=== PATIENT | male | born 1985 | race American Indian/Alaskan Native ===

== ENCOUNTER 2019-02-11 10:53 | Inpatient (IN) | payer OTHER ==
--- NOTE | 2019-02-11 11:46 | Emergency Department Report ---
ED General Adult HPI - General Chief complaint: Recheck/Abnormal Lab/Rx Stated complaint: NEED DIALYSIS Time Seen by Provider: 02/11/19 11:40 Source: patient Mode of arrival: Ambulatory Limitations: No Limitations - History of Present Illness Initial comments: Patient is a 33-year-old male the patient's emergency room with complaints of needing dialysis. Patient states traveling from [place] to here and social and political studies professor set up dialysis but the deal fell through. Patient states he doesn't receive dialysis. Patient's last dialysis was 3 days ago. Patient denies any symptoms. Patient denies chest pain. Patient denies shortness of breath. Patient denies headache. Patient denies dizziness. -: Sudden Severity scale (0 -10): 0 Consistency: constant Associated Symptoms: denies other symptoms Treatments Prior to Arrival: none - Related Data Home Medications Medication Instructions Recorded Confirmed Last Taken ISOSORBIDE MONOnitrate [Imdur ER] 30 mg PO DAILY 02/11/19 02/11/19 Unknown Labetalol [Labetalol 200mg TAB] 200 mg PO BID 02/11/19 02/11/19 02/11/19 Mirtazapine Solutab [Remeron 15mg 15 mg PO QHS 02/11/19 02/11/19 02/10/19 Solutab] amLODIPine [Norvasc] 5 mg PO DAILY 02/11/19 02/11/19 02/10/19 hydrALAZINE [Apresoline TAB] 100 mg PO TID 02/11/19 02/11/19 02/11/19 Allergies Allergy/AdvReac Type Severity Reaction Status Date / Time Penicillins Allergy Hives Verified 02/11/19 14:13 ED Review of Systems ROS: Stated complaint: NEED DIALYSIS Other details as noted in HPI Constitutional: denies: chills, fever Eyes: denies: eye pain, eye discharge, vision change ENT: denies: ear pain, throat pain Respiratory: denies: cough, shortness of breath, wheezing Cardiovascular: denies: chest pain, palpitations Endocrine: no symptoms reported Gastrointestinal: denies: abdominal pain, nausea, diarrhea Genitourinary: denies: urgency, dysuria Musculoskeletal: denies: back pain, joint swelling, arthralgia Skin: denies: rash, lesions Neurological: denies: headache, weakness, paresthesias Psychiatric: denies: anxiety, depression Hematological/Lymphatic: denies: easy bleeding, easy bruising ED Past Medical Hx - Past Medical History Previous Medical History?: Yes Hx Hypertension: Yes Hx Diabetes: Yes Hx Renal Disease: Yes Hx HIV: Yes Additional medical history: HIV - Surgical History Past Surgical History?: Yes Hx Cholecystectomy: Yes Additional Surgical History: PORT IN CHEST - Family History Family history: no significant - Social History Smoking Status: Never Smoker Substance Use Type: None - Medications Home Medications: Home Medications Medication Instructions Recorded Confirmed Last Taken Type ISOSORBIDE MONOnitrate [Imdur ER] 30 mg PO DAILY 02/11/19 02/11/19 Unknown History Labetalol [Labetalol 200mg TAB] 200 mg PO BID 02/11/19 02/11/19 02/11/19 History Mirtazapine Solutab [Remeron 15mg 15 mg PO QHS 02/11/19 02/11/19 02/10/19 History Solutab] amLODIPine [Norvasc] 5 mg PO DAILY 02/11/19 02/11/19 02/10/19 History hydrALAZINE [Apresoline TAB] 100 mg PO TID 02/11/19 02/11/19 02/11/19 History ED Physical Exam - General Limitations: No Limitations General appearance: alert, in no apparent distress - Head Head exam: Present: atraumatic, normocephalic - Eye Eye exam: Present: normal appearance - ENT ENT exam: Present: mucous membranes moist - Neck Neck exam: Present: normal inspection - Respiratory Respiratory exam: Present: normal lung sounds bilaterally, other (right chest port). Absent: respiratory distress - Cardiovascular Cardiovascular Exam: Present: regular rate, normal rhythm. Absent: systolic murmur, diastolic murmur, rubs, gallop - GI/Abdominal GI/Abdominal exam: Present: soft, normal bowel sounds - Rectal Rectal exam: Present: deferred - Extremities Exam Extremities exam: Present: normal inspection - Back Exam Back exam: Present: normal inspection - Neurological Exam Neurological exam: Present: alert, oriented X3 - Psychiatric Psychiatric exam: Present: normal affect, normal mood - Skin Skin exam: Present: warm, dry, intact, normal color. Absent: rash ED Course Vital Signs 02/11/19 02/11/19 02/11/19 11:06 11:57 12:00 Temperature 98.4 F Pulse Rate 110 H Respiratory 16 Rate Blood Pressure 161/115 142/112 Blood Pressure 190/124 [Left] O2 Sat by Pulse 99 Oximetry 02/11/19 02/11/19 13:07 14:00 Temperature 98.1 F Pulse Rate 100 H Respiratory 20 Rate Blood Pressure 170/104 179/116 Blood Pressure [Left] O2 Sat by Pulse 100 96 Oximetry - Reevaluation(s) Reevaluation #1: Discussed all results the patient. Discussed plan of care patient. Patient agrees plan for admission. Patient will have dialysis done in the hospital. Patient will be admitted to the hospital service. 02/11/19 13:22 - Consultations Consultation #1: Hospitalist consultation for admission. Hospitalist to admit patient and assume care patient. Bridge orders placed 02/11/19 13:23 Consultation #2: Nephrology paged 02/11/19 13:25 Discussed case with extract mixer, Dr. Anaya and he agrees with plan of care and in-hospital dialysis. He states he will place the dialysis orders. 02/11/19 13:55 ED Medical Decision Making - Lab Data Result diagrams: 02/11/19 11:29 02/11/19 11:29 - Medical Decision Making Patient is a 33-year-old known end-stage renal disease patient on dialysis. Patient is traveling here and has not had dialysis for 3 days. Patient will be admitted to the hospitalist service for dialysis. Nephrology consultation. labs done in consistent with end-stage renal disease. Potassium normal - Differential Diagnosis missed dialysis. End stage renal disease Critical care attestation.: If time is entered above; I have spent that time in minutes in the direct care of this critically ill patient, excluding procedure time. ED Disposition Clinical Impression: Missed dialysis, CKD (chronic kidney disease) requiring chronic dialysis Disposition: OP ADMIT IP TO THIS HOSP Is pt being admited?: Yes Does the pt Need Aspirin: No Condition: Critical Time of Disposition: 13:24
[2019-02-11 12:07] LABS: Basophils # (Auto) 0.1 K/mm3 (0.0-0.1); Eosinophils # (Auto) 0.2 K/mm3 (0.0-0.4); Eosinophils % (Auto) 2.7 % (0.0-4.3); Hematocrit 32.4 % (35.5-45.6); Hemoglobin 10.7 gm/dl (11.8-15.2); Lymphocytes # (Auto) 1.5 K/mm3 (1.2-5.4); Lymphocytes % (Auto) 21.6 % (13.4-35.0); Mean Corpuscular HGB Conc 33 % (32-34); Mean Corpuscular Volume 89 fl (84-94); Monocytes # (Auto) 0.5 K/mm3 (0.0-0.8); Monocytes % (Auto) 6.8 % (0.0-7.3); Platelet Count 311 K/mm3 (140-440); Red Blood Count 3.62 M/mm3 (3.65-5.03); Red Cell Distribution Width 13.9 % (13.2-15.2)
[2019-02-11 12:23] LABS: Albumin 3.6 g/dL (3.9-5); Calcium 9.3 mg/dL (8.4-10.2)
[2019-02-11] MEDS ORDERED: NACL 0.9% 100 ML IV PRN (14:07)
[2019-02-11 15:29] LABS: Hepatitis B Surface Antigen Non-Reactive (Negative); Hepatitis C Virus Antibody Non-Reactive (NonReactive)
[2019-02-11] MEDS: PROCRIT IV PRN (19:00)
[2019-02-11] MEDS ORDERED: NACL 0.9 (PRIMING MACHINE ONLY DIALYSIS) MC ONE (20:12)
--- NOTE | 2019-02-11 22:02 | History and Physical Report ---
History of Present Illness Date of examination: 02/11/19 Date of admission: 02/11/19 13:25 Chief complaint: Missed hemodialysis History of present illness: 33-year-old male with history of end-stage renal disease on hemodialysis for the last few months is moving from [place] to [place] for 3 weeks. Apparently arranged for hemodialysis as outpatient but unable to go there because they were not arranged properly. Patient comes in from missed hemodialysis. Patient is on hemodialysis Thursday. Had his hemodialysis on Thursday. Breasts yesterday which is . Comes to the [facility] emergency room for hemodialysis and for arrangements of hemodialysis as outpatient. No shortness of breath. No chest pain. No fever. Recent travel from [place] to [place] by a bus. Has low back pain secondary to sitting and bus for long hours. Patient also has a history of HIV but not taking any antiretrovirals Past Medical History Previous Medical History?: Yes Hx Hypertension: Yes Hx Diabetes: Yes Hx Renal Disease: Yes Hx HIV: Yes Additional medical history: HIV Surgical History Past Surgical History?: Yes Hx Cholecystectomy: Yes Additional Surgical History: PORT IN CHEST Family History Family history: no significant Social History Smoking Status: Never Smoker Substance Use Type: None Medications Home Medications: Home Medications Medication Instructions Recorded Confirmed Last Taken Type ISOSORBIDE MONOnitrate [Imdur ER] 30 mg PO DAILY 02/11/19 02/11/19 Unknown History Labetalol [Labetalol 200mg TAB] 200 mg PO BID 02/11/19 02/11/19 02/11/19 History Mirtazapine Solutab [Remeron 15mg 15 mg PO QHS 02/11/19 02/11/19 02/10/19 History Solutab] amLODIPine [Norvasc] 5 mg PO DAILY 02/11/19 02/11/19 02/10/19 History hydrALAZINE [Apresoline TAB] 100 mg PO TID 02/11/19 02/11/19 02/11/19 History Review of Systems ROS: Stated complaint: NEED DIALYSIS Other details as noted in HPI Constitutional: denies: chills, fever Eyes: denies: eye pain, eye discharge, vision change ENT: denies: ear pain, throat pain Respiratory: denies: cough, shortness of breath, wheezing Cardiovascular: denies: chest pain, palpitations Endocrine: no symptoms reported Gastrointestinal: denies: abdominal pain, nausea, diarrhea Genitourinary: denies: urgency, dysuria Musculoskeletal: denies: back pain, joint swelling, arthralgia Skin: denies: rash, lesions Neurological: denies: headache, weakness, paresthesias Psychiatric: denies: anxiety, depression Hematological/Lymphatic: denies: easy bleeding, easy bruising Medications and Allergies Allergies Allergy/AdvReac Type Severity Reaction Status Date / Time Penicillins Allergy Hives Verified 02/11/19 14:13 Home Medications Medication Instructions Recorded Confirmed Last Taken Type ISOSORBIDE MONOnitrate [Imdur ER] 30 mg PO DAILY 02/11/19 02/11/19 Unknown History Labetalol [Labetalol 200mg TAB] 200 mg PO BID 02/11/19 02/11/19 02/11/19 History Mirtazapine Solutab [Remeron 15mg 15 mg PO QHS 02/11/19 02/11/19 02/10/19 History Solutab] amLODIPine [Norvasc] 5 mg PO DAILY 02/11/19 02/11/19 02/10/19 History hydrALAZINE [Apresoline TAB] 100 mg PO TID 02/11/19 02/11/19 02/11/19 History Active Meds: Active Medications Epoetin Jv (Procrit) 10,000 unit IV TORY PRN PRN Reason: hemodialysis Last Admin: 02/11/19 19:00 Dose: 10,000 unit Documented by: Sodium Chloride (Nacl 0.9%) 100 mls @ 999 mls/hr IV TORY PRN PRN Reason: Hypotension Exam - Constitutional Vitals: Temp Pulse Resp BP Pulse Ox 98.2 F 96 H 18 116/65 96 02/11/19 19:15 02/11/19 19:15 02/11/19 19:15 02/11/19 19:15 02/11/19 14:00 General appearance: Present: no acute distress, well-nourished - EENT Eyes: Present: PERRL ENT: hearing intact, clear oral mucosa - Neck Neck: Present: supple, normal ROM - Respiratory Respiratory effort: normal Respiratory: bilateral: CTA - Cardiovascular Heart rate: 76 Rhythm: regular Heart Sounds: Present: S1 & S2. Absent: rub, click - Extremities Extremities: no ischemia, pulses symmetrical, No edema Peripheral Pulses: within normal limits - Abdominal General gastrointestinal: Present: soft, non-tender, non-distended, normal bowel sounds Male genitourinary: Present: normal - Rectal Rectal Exam: deferred - Integumentary Integumentary: Present: clear, warm, dry - Musculoskeletal Musculoskeletal: gait normal, strength equal bilaterally - Psychiatric Psychiatric: appropriate mood/affect, intact judgment & insight - Neurologic Neurologic: CNII-XII intact, moves all extremities - Allied Health Allied health notes reviewed: nursing, case management Results - Labs CBC & Chem 7: 02/11/19 11:29 02/11/19 11:29 Labs: Laboratory Last Values WBC 7.0 K/mm3 (4.5-11.0) 02/11/19 11:29 RBC 3.62 M/mm3 (3.65-5.03) L 02/11/19 11:29 Hgb 10.7 gm/dl (11.8-15.2) L 02/11/19 11:29 Hct 32.4 % (35.5-45.6) L 02/11/19 11:29 MCV 89 fl (84-94) 02/11/19 11:29 MCH 30 pg (28-32) 02/11/19 11:29 MCHC 33 % (32-34) 02/11/19 11:29 RDW 13.9 % (13.2-15.2) 02/11/19 11:29 Plt Count 311 K/mm3 (140-440) 02/11/19 11:29 Lymph % (Auto) 21.6 % (13.4-35.0) 02/11/19 11:29 [place] % (Auto) 6.8 % (0.0-7.3) 02/11/19 11:29 Eos % (Auto) 2.7 % (0.0-4.3) 02/11/19 11:29 Baso % (Auto) 1.0 % (0.0-1.8) 02/11/19 11:29 Lymph # 1.5 K/mm3 (1.2-5.4) 02/11/19 11:29 [place] # 0.5 K/mm3 (0.0-0.8) 02/11/19 11:29 Eos # 0.2 K/mm3 (0.0-0.4) 02/11/19 11:29 Baso # 0.1 K/mm3 (0.0-0.1) 02/11/19 11:29 Seg Neutrophils % 67.9 % (40.0-70.0) 02/11/19 11:29 Seg Neutrophils # 4.8 K/mm3 (1.8-7.7) 02/11/19 11:29 Sodium 134 mmol/L (137-145) L 02/11/19 11:29 Potassium 4.4 mmol/L (3.6-5.0) 02/11/19 11:29 Chloride 92.9 mmol/L (98-107) L 02/11/19 11:29 Carbon Dioxide 24 mmol/L (22-30) 02/11/19 11:29 22 mmol/L 02/11/19 11:29 BUN 39 mg/dL (9-20) H 02/11/19 11:29 8.2 mg/dL (0.8-1.5) H 02/11/19 11:29 Estimated GFR 8 ml/min 02/11/19 11:29 5 % 02/11/19 11:29 Glucose 282 mg/dL (75-100) H 02/11/19 11:29 Calcium 9.3 mg/dL (8.4-10.2) 02/11/19 11:29 0.40 mg/dL (0.1-1.2) 02/11/19 11:29 AST 20 units/L (5-40) 02/11/19 11:29 ALT 14 units/L (7-56) 02/11/19 11:29 83 units/L (35-129) 02/11/19 11:29 8.2 g/dL (6.3-8.2) 02/11/19 11:29 3.6 g/dL (3.9-5) L 02/11/19 11:29 0.8 % 02/11/19 11:29 Hepatitis A IgM Ab Non-reactive (NonReactive) 02/11/19 14:30 Hep Bs Antigen Non-reactive (Negative) 02/11/19 14:30 Hep B Core IgM Ab Non-reactive (NonReactive) 02/11/19 14:30 Non-reactive (NonReactive) 02/11/19 14:30 Assessment and Plan Advance Directives: Yes (full code) VTE prophylaxis?: Chemical Plan of care discussed with patient/family: Yes (full code) - Patient Problems (1) Missed dialysis Current Visit: Yes Status: Acute Plan to address problem: Patient needs hemodialysis Nephrology consulted (2) Volume overload Current Visit: Yes Status: Acute Qualifiers: Hypervolemia type: unspecified Qualified Code(s): E87.70 - Fluid overload, unspecified Plan to address problem: Secondary to missed hemodialysis Needs emergent hemodialysis Nephrology consulted (3) Hypertension Current Visit: Yes Status: Chronic Qualifiers: Hypertension type: essential hypertension Qualified Code(s): I10 - Bella alvarado (primary) hypertension Plan to address problem: Continue antihypertensives (4) Type 2 diabetes mellitus Current Visit: Yes Status: Chronic Qualifiers: Diabetes mellitus long term acute care registered nurse insulin use: with senior care use Plan to address problem: Patient started on Lantus 15 units subcutaneous at bedtime Check hemoglobin A1c (5) HIV (human immunodeficiency virus infection) Current Visit: Yes Status: Chronic Qualifiers: HIV symptom status: asymptomatic Qualified Code(s): Z21 - Asymptomatic human immunodeficiency virus [HIV] infection status Plan to address problem: Not on any antiretrovirals To follow with infectious disease consultants as outpatient ID consult was not requested (6) DVT prophylaxis Current Visit: Yes Status: Acute Plan to address problem: On heparin 5000 every 12 and GI prophylaxis
[2019-02-11] MEDS ORDERED: SODIUM CHLORIDE FLUSH SYRINGE 10 ML IV PRN (22:09)
[2019-02-11] MEDS ORDERED: TYLENOL PO PRN (22:09)
[2019-02-11] MEDS: PERCOCET 5/325 PO PRN (22:49)
[2019-02-11] MEDS: NORMODYNE PO SCH (22:49)
[2019-02-11] MEDS: REMERON SOLUTAB PO SCH (22:50)
[2019-02-12] MEDS: SODIUM CHLORIDE FLUSH SYRINGE 10 ML IV SCH ×3 (00:50→22:52)
[2019-02-12] MEDS: LANTUS SUB-Q SCH ×2 (00:50→22:51)
[2019-02-12 06:21] LABS: Basophils # (Auto) 0.1 K/mm3 (0.0-0.1); Basophils % (Auto) 0.9 % (0.0-1.8); Eosinophils # (Auto) 0.2 K/mm3 (0.0-0.4); Eosinophils % (Auto) 2.4 % (0.0-4.3); Hematocrit 28.8 % (35.5-45.6); Hemoglobin 9.6 gm/dl (11.8-15.2); Lymphocytes # (Auto) 1.9 K/mm3 (1.2-5.4); Lymphocytes % (Auto) 28.4 % (13.4-35.0); Mean Corpuscular HGB Conc 33 % (32-34); Mean Corpuscular Volume 90 fl (84-94); Monocytes # (Auto) 0.6 K/mm3 (0.0-0.8); Monocytes % (Auto) 9.6 % (0.0-7.3); Platelet Count 247 K/mm3 (140-440); Red Cell Distribution Width 14.1 % (13.2-15.2)
[2019-02-12 06:40] LABS: Albumin 2.9 g/dL (3.9-5); Calcium 8.7 mg/dL (8.4-10.2)
[2019-02-12] MEDS: HumaLOG SUB-Q SCH ×4 (07:30→22:50)
[2019-02-12] MEDS: NORMODYNE PO SCH ×2 (09:32→21:29)
[2019-02-12] MEDS: IMDUR PO SCH (09:33)
[2019-02-12] MEDS: NORVASC PO SCH (09:33)
[2019-02-12] MEDS: PEPCID PO SCH ×2 (09:34→21:28)
[2019-02-12] MEDS: APRESOLINE PO SCH ×3 (09:34→21:29)
[2019-02-12] MEDS: DILAUDID IV PRN ×3 (09:39→23:59)
--- NOTE | 2019-02-12 10:35 | Consultation ---
History of Present Illness - Reason for Consult Consult date: 02/12/19 end stage renal disease Requesting physician: OPAL FRANKS - History of Present Illness This is a 33yo CM with history of hypertension, ESRD on HD on TTS schedule for the last few months who is in the process of moving from [place] to [place]. Outpatient HD arrangement was not properly done, and he does not have any centers assigned to. Patient comes in to [facility] ER for missed hemodialysis. Pt den iesshortness of breath, chest pain, fever, chills, n/v/d. Patient also has a history of HIV but not taking any antiretrovirals Medications and Allergies Allergies Allergy/AdvReac Type Severity Reaction Status Date / Time Penicillins Allergy Hives Verified 02/11/19 14:13 Home Medications Medication Instructions Recorded Confirmed Last Taken Type ISOSORBIDE MONOnitrate [Imdur ER] 30 mg PO DAILY 02/11/19 02/11/19 Unknown History Labetalol [Labetalol 200mg TAB] 200 mg PO BID 02/11/19 02/11/19 02/11/19 History Mirtazapine Solutab [Remeron 15mg 15 mg PO QHS 02/11/19 02/11/19 02/10/19 History Solutab] amLODIPine [Norvasc] 5 mg PO DAILY 02/11/19 02/11/19 02/10/19 History hydrALAZINE [Apresoline TAB] 100 mg PO TID 02/11/19 02/11/19 02/11/19 History Active Meds: Active Medications Acetaminophen (Tylenol) 650 mg PO Q4H PRN PRN Reason: Pain MILD(1-3)/Fever >100.5/CHOUDHARY Amlodipine Besylate (Norvasc) 5 mg PO DAILY [facility] Last Admin: 02/12/19 09:33 Dose: 5 mg Documented by: Epoetin Jv (Procrit) 10,000 unit IV TORY PRN PRN Reason: hemodialysis Last Admin: 02/11/19 19:00 Dose: 10,000 unit Documented by: Famotidine (Pepcid) 10 mg PO BID [facility] Last Admin: 02/12/19 09:34 Dose: 10 mg Documented by: Hydralazine HCl (Apresoline) 100 mg PO TID [facility] Last Admin: 02/12/19 09:34 Dose: 100 mg Documented by: Hydromorphone HCl (Dilaudid) 0.5 mg IV Q3H PRN PRN Reason: Pain , Severe (7-10) Last Admin: 02/12/19 09:39 Dose: 0.5 mg Documented by: Sodium Chloride (Nacl 0.9%) 100 mls @ 999 mls/hr IV TORY PRN PRN Reason: Hypotension Insulin Glargine (Lantus) 15 units SUB-Q QHS [facility] Last Admin: 02/12/19 00:50 Dose: 15 units Documented by: Insulin Human Lispro (Humalog) 0 unit SUB-Q ACHS [facility]; Protocol Isosorbide Mononitrate (Imdur) 30 mg PO DAILY [facility] Last Admin: 02/12/19 09:33 Dose: 30 mg Documented by: Labetalol HCl (Normodyne) 200 mg PO BID [facility] Last Admin: 02/12/19 09:32 Dose: 200 mg Documented by: Mirtazapine (Remeron Solutab) 15 mg PO QHS [facility] Last Admin: 02/11/19 22:50 Dose: 15 mg Documented by: Ondansetron HCl (Zofran) 4 mg IV Q8H PRN PRN Reason: Nausea And Vomiting Oxycodone/Acetaminophen (Percocet 5/325) 1 tab PO Q6H PRN PRN Reason: Pain, Moderate (4-6) Last Admin: 02/11/19 22:49 Dose: 1 tab Documented by: Sodium Chloride (Sodium Chloride Flush Syringe 10 Ml) 10 ml IV BID [facility] Last Admin: 02/12/19 00:50 Dose: 10 ml Documented by: Sodium Chloride (Sodium Chloride Flush Syringe 10 Ml) 10 ml IV PRN PRN PRN Reason: LINE FLUSH Exam - Vital Signs Vital signs: Vital Signs Temp Pulse Resp BP Pulse Ox 98.4 F 110 H 16 190/124 99 02/11/19 11:06 02/11/19 11:06 02/11/19 11:06 02/11/19 11:06 02/11/19 11:06 Results - Lab Results 02/12/19 05:58 02/12/19 05:58 Most recent lab results Calcium 8.7 mg/dL (8.4-10.2) 02/12/19 05:58 Assessment and Plan - Patient Problems (1) ESRD (end stage renal disease) Current Visit: Yes Status: Acute Plan to address problem: HD arranged yesterday, with target UF 3L, well tolerated without acute complication. Will cont HD on MWF schedule. Case management to arrange outpatient HD. (2) Hypertensive chronic kidney disease with stage 5 chronic kidney disease or end stage renal disease Current Visit: Yes Status: Acute Plan to address problem: resume home BP meds. Will monitor BP and adjust UF accordingly (3) HIV (human immunodeficiency virus infection) Current Visit: Yes Status: Chronic Qualifiers: HIV symptom status: asymptomatic Qualified Code(s): Z21 - Asymptomatic human immunodeficiency virus [HIV] infection status Plan to address problem: pt needs outpatient ID f/u
--- NOTE | 2019-02-12 11:34 | Progress Note ---
Assessment and Plan Assessment and plan: Patient is a 33-year-old man with a history of HIV, hypertension and End-stage renal disease on hemodialysis TTS who moved from [place] to [facility] for 3 weeks. Apparently arranged for hemodialysis as outpatient but unable to go there because they were not arranged properly. Patient comes in from missed hemodialysis. Patient is on hemodialysis Thursday. Had his hemodialysis on Thursday. Breasts yesterday which is . Comes to the [facility] emergency room for hemodialysis and for arrangements of hemodialysis as outpatient. No shortness of breath. No chest pain. No fever. Recent travel from [place] to [place] by a bus. Has low back pain secondary to sitting and bus for long hours. Patient also has a history of HIV but not taking any antiretrovirals (1) Missed dialysis Current Visit: Yes Status: Acute Plan to address problem: Patient needs hemodialysis Nephrology consulted (2) Volume overload Current Visit: Yes Status: Acute Qualifiers: Hypervolemia type: unspecified Qualified Code(s): E87.70 - Fluid overload, unspecified Plan to address problem: Secondary to missed hemodialysis Needs emergent hemodialysis Nephrology consulted (3) Hypertension Current Visit: Yes Status: Chronic Qualifiers: Hypertension type: essential hypertension Qualified Code(s): I10 - Essential (primary) hypertension Plan to address problem: Continue antihypertensives (4) Type 2 diabetes mellitus Current Visit: Yes Status: Chronic Qualifiers: 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 Plan to address problem: Patient started on Lantus 15 units subcutaneous at bedtime Check hemoglobin A1c (5) HIV (human immunodeficiency virus infection) Current Visit: Yes Status: Chronic Qualifiers: HIV symptom status: asymptomatic Qualified Code(s): Z21 - Asymptomatic hum an immunodeficiency virus [HIV] infection status Plan to address problem: Not on any antiretrovirals To follow with infectious disease consultants as outpatient ID consult was not requested (6) DVT prophylaxis Current Visit: Yes Status: Acute Plan to address problem: On heparin 5000 every 12 and GI prophylaxis Dispostion: continue inpatient care, I spoke with insurance case manager Mr. Hanna, trying to get him outpatient hemodialysi History Interval history: Patient was seen and examined. Follow-up on current diagnosis of ESRD. No overnight events reported to me. Patient denies any chest pain, shortness breath, nausea/vomiting or severe headaches. Imaging, nursing note, chart, labs and old chart reviewed. Discussed with patient. Hospitalist Physical - Physical exam Narrative exam: Gen: WDWN, NAD, Awake, Alert, Orientated HEENT: NCAT, EOMI, PERRL, OP Clear Neck: supple, no adenopathy, no thyromegaly, no JVD CVS/Heart: RRR, normal S1S2, pulses present bilaterally Chest/Lungs: CTA B, Symmetrical chest expansion, good air entry bilaterally GI/Abdomen: soft, NTND, good bowel sounds, no guarding or rebound /Bladder: no suprapubic tenderness, no CVA or paraspinal tenderness Extermity/Skin: no c/c/e, many tattoos MSK: FROM x 4 Neuro: CN 2-12 grossly intact, no new focal deficits Psych: calm - Constitutional Vitals: Temp Pulse Resp BP Pulse Ox 98.1 F 106 H 20 151/91 96 02/11/19 23:43 02/12/19 09:33 02/11/19 23:43 02/12/19 09:33 02/11/19 23:43 General appearance: Present: no acute distress, well-nourished Results - Labs CBC & Chem 7: 02/12/19 05:58 02/12/19 05:58 Labs: Laboratory Last Values WBC 6.5 K/mm3 (4.5-11.0) 02/12/19 05:58 RBC 3.20 M/mm3 (3.65-5.03) L 02/12/19 05:58 Hgb 9.6 gm/dl (11.8-15.2) L 02/12/19 05:58 Hct 28.8 % (35.5-45.6) L 02/12/19 05:58 MCV 90 fl (84-94) 02/12/19 05:58 MCH 30 pg (28-32) 02/12/19 05:58 MCHC 33 % (32-34) 02/12/19 05:58 RDW 14.1 % (13.2-15.2) 02/12/19 05:58 Plt Count 247 K/mm3 (140-440) 02/12/19 05:58 Lymph % (Auto) 28.4 % (13.4-35.0) 02/12/19 05:58 [place] % (Auto) 9.6 % (0.0-7.3) H 02/12/19 05:58 Eos % (Auto) 2.4 % (0.0-4.3) 02/12/19 05:58 Baso % (Auto) 0.9 % (0.0-1.8) 02/12/19 05:58 Lymph # 1.9 K/mm3 (1.2-5.4) 02/12/19 05:58 [place] # 0.6 K/mm3 (0.0-0.8) 02/12/19 05:58 Eos # 0.2 K/mm3 (0.0-0.4) 02/12/19 05:58 Baso # 0.1 K/mm3 (0.0-0.1) 02/12/19 05:58 Seg Neutrophils % 58.7 % (40.0-70.0) 02/12/19 05:58 Seg Neutrophils # 3.8 K/mm3 (1.8-7.7) 02/12/19 05:58 Sodium 138 mmol/L (137-145) 02/12/19 05:58 Potassium 3.8 mmol/L (3.6-5.0) 02/12/19 05:58 Chloride 99.6 mmol/L (98-107) 02/12/19 05:58 Carbon Dioxide 28 mmol/L (22-30) 02/12/19 05:58 14 mmol/L 02/12/19 05:58 BUN 24 mg/dL (9-20) H 02/12/19 05:58 5.8 mg/dL (0.8-1.5) H 02/12/19 05:58 Estimated GFR 14 ml/min 02/12/19 05:58 4 % 02/12/19 05:58 Glucose 223 mg/dL (75-100) H 02/12/19 05:58 POC Glucose 205 (70-105) H 02/12/19 07:44 5.7 % (4-6) 02/11/19 11:29 Calcium 8.7 mg/dL (8.4-10.2) 02/12/19 05:58 0.30 mg/dL (0.1-1.2) 02/12/19 05:58 AST 14 units/L (5-40) 02/12/19 05:58 ALT 11 units/L (7-56) 02/12/19 05:58 78 units/L (35-129) 02/12/19 05:58 6.8 g/dL (6.3-8.2) 02/12/19 05:58 2.9 g/dL (3.9-5) L 02/12/19 05:58 0.7 % 02/12/19 05:58 Hepatitis A IgM Ab Non-reactive (NonReactive) 02/11/19 14:30 Hep Bs Antigen Non-reactive (Negative) 02/11/19 14:30 Hep B Core IgM Ab Non-reactive (NonReactive) 02/11/19 14:30 Non-reactive (NonReactive) 02/11/19 14:30 Active Medications - Current Medications Current Medications: Generic Name Dose Route Start Last Admin Trade Name Freq PRN Reason Stop Dose Admin Acetaminophen 650 mg 02/11/19 22:09 Tylenol PO Q4H PRN Pain MILD(1-3)/Fever >100.5/CHOUDHARY Amlodipine Besylate 5 mg 02/12/19 10:00 02/12/19 09:33 Norvasc PO 5 mg DAILY SHIRA Administration Epoetin Jv 10,000 unit 02/11/19 14:07 02/11/19 19:00 Procrit IV 10,000 unit TORY PRN Administration hemodialysis Famotidine 10 mg 02/12/19 10:00 02/12/19 09:34 Pepcid PO 10 mg BID SHIRA Administration Hydralazine HCl 100 mg 02/12/19 08:00 02/12/19 09:34 Apresoline PO 100 mg TID SHIRA Administration Hydromorphone HCl 0.5 mg 02/11/19 22:09 02/12/19 09:39 Dilaudid IV 0.5 mg Q3H PRN Administration Pain , Severe (7-10) Sodium Chloride 100 mls @ 999 mls/hr 02/11/19 14:07 Nacl 0.9% IV TORY PRN Hypotension Insulin Glargine 15 units 02/11/19 23:00 02/12/19 00:50 Lantus SUB-Q 15 units QHS SHIRA Administration Insulin Human Lispro 0 unit 02/12/19 07:30 Humalog SUB-Q ACHS [facility] Protocol Isosorbide Mononitrate 30 mg 02/12/19 10:00 02/12/19 09:33 Imdur PO 30 mg DAILY SHIRA Administration Labetalol HCl 200 mg 02/11/19 23:00 02/12/19 09:32 Normodyne PO 200 mg BID SHIRA Administration Mirtazapine 15 mg 02/11/19 23:00 02/11/19 22:50 Remeron Solutab PO 15 mg QHS SHIRA Administration Ondansetron HCl 4 mg 02/11/19 22:09 Zofran IV Q8H PRN Nausea And Vomiting Oxycodone/Acetaminophen 1 tab 02/11/19 22:09 02/11/19 22:49 Percocet 5/325 PO 1 tab Q6H PRN Administration Pain, Moderate (4-6) Sodium Chloride 10 ml 02/11/19 23:00 02/12/19 00:50 Sodium Chloride Flush Syringe 10 Ml IV 10 ml BID SHIRA Administration Sodium Chloride 10 ml 02/11/19 22:09 Sodium Chloride Flush Syringe 10 Ml IV PRN PRN LINE FLUSH
[2019-02-12] MEDS: ZOFRAN IV PRN (21:29)
[2019-02-12] MEDS: REMERON SOLUTAB PO SCH (22:51)
[2019-02-13 04:09] LABS: Hematocrit 28.4 % (35.5-45.6); Hemoglobin 9.5 gm/dl (11.8-15.2); Mean Corpuscular HGB Conc 33 % (32-34); Mean Corpuscular Volume 89 fl (84-94); Platelet Count 311 K/mm3 (140-440); Red Cell Distribution Width 14.1 % (13.2-15.2)
[2019-02-13 04:30] LABS: Calcium 8.5 mg/dL (8.4-10.2)
[2019-02-13] MEDS: DILAUDID IV PRN ×4 (06:26→21:12)
[2019-02-13] MEDS ORDERED: NACL 0.9% 100 ML IV PRN (09:00)
--- NOTE | 2019-02-13 09:02 | Progress Note ---
Assessment and Plan - Patient Problems (1) ESRD (end stage renal disease) Current Visit: Yes Status: Acute Plan to address problem: cont HD on MWF schedule. Case management to arrange outpatient HD. (2) Hypertensive chronic kidney disease with stage 5 chronic kidney disease or end stage renal disease Current Visit: Yes Status: Acute Plan to address problem: resume home BP meds. Will monitor BP and adjust UF accordingly (3) HIV (human immunodeficiency virus infection) Current Visit: Yes Status: Chronic Qualifiers: HIV symptom status: asymptomatic Qualified Code(s): Z21 - Asymptomatic human immunodeficiency virus [HIV] infection status Plan to address problem: pt needs outpatient ID f/u Subjective Date of service: 02/13/19 Principal diagnosis: ESRD Interval history: Patient awake, alert, in NAD, denies SOB, CP, palpitations, fever, chills, n/v/d Objective - Vital Signs Vital signs: Vital Signs - 12hr 02/12/19 02/13/19 02/13/19 23:59 06:26 07:00 Temperature 98.3 F Pulse Rate 110 H Respiratory 18 20 20 Rate Blood Pressure 152/84 O2 Sat by Pulse 94 Oximetry - General Appearance General appearance: well-developed, well-nourished, appears stated age EENT: ATNC, PERRL, mucous membranes moist Neck: no JVD Respiratory: Present: Clear to Ascultation Cardiology: regular, S1S2 Gastrointestinal: normoactive bowel sounds, obese Integumentary: no rash Neurologic: no focal deficit, alert and oriented x3, strength 5/5, CN 3-12 intact Psychiatric: mood/affect appropriate, cooperative - Lab 02/13/19 03:52 02/13/19 03:52 Most recent lab results Calcium 8.5 mg/dL (8.4-10.2) 02/13/19 03:52 Medications & Allergies - Medications Allergies/Adverse Reactions: Allergies Penicillins Allergy (Verified 02/11/19 14:13) Hives Home Medications: Home Medications Medication Instructions Recorded Confirmed Last Taken Type ISOSORBIDE MONOnitrate [Imdur ER] 30 mg PO DAILY 02/11/19 02/11/19 Unknown History Labetalol [Labetalol 200mg TAB] 200 mg PO BID 02/11/19 02/11/19 02/11/19 History Mirtazapine Solutab [Remeron 15mg 15 mg PO QHS 02/11/19 02/11/19 02/10/19 History Solutab] amLODIPine [Norvasc] 5 mg PO DAILY 02/11/19 02/11/19 02/10/19 History hydrALAZINE [Apresoline TAB] 100 mg PO TID 02/11/19 02/11/19 02/11/19 History Active Medications: Generic Name Dose Route Start Last Admin Trade Name Freq PRN Reason Stop Dose Admin Acetaminophen 650 mg 02/11/19 22:09 Tylenol PO Q4H PRN Pain MILD(1-3)/Fever >100.5/CHOUDHARY Amlodipine Besylate 5 mg 02/12/19 10:00 02/12/19 09:33 Norvasc PO 5 mg DAILY SHIRA Administration Epoetin Jv 10,000 unit 02/11/19 14:07 02/11/19 19:00 Procrit IV 10,000 unit TORY PRN Administration hemodialysis Famotidine 10 mg 02/12/19 10:00 02/12/19 21:28 Pepcid PO 10 mg BID SHIRA Administration Hydralazine HCl 100 mg 02/12/19 08:00 02/12/19 21:29 Apresoline PO 100 mg TID SHIRA Administration Hydromorphone HCl 0.5 mg 02/11/19 22:09 02/13/19 06:26 Dilaudid IV 0.5 mg Q3H PRN Administration Pain , Severe (7-10) Sodium Chloride 100 mls @ 999 mls/hr 02/11/19 14:07 Nacl 0.9% IV TORY PRN Hypotension Insulin Glargine 15 units 02/11/19 23:00 02/12/19 22:51 Lantus SUB-Q 15 units QHS SHIRA Administration Insulin Human Lispro 0 unit 02/12/19 07:30 02/12/19 22:50 Humalog SUB-Q 2 unit ACHS SHIRA Administration Protocol Isosorbide Mononitrate 30 mg 02/12/19 10:00 02/12/19 09:33 Imdur PO 30 mg DAILY SHIRA Administration Labetalol HCl 200 mg 02/11/19 23:00 02/12/19 21:29 Normodyne PO 200 mg BID SHIRA Administration Mirtazapine 15 mg 02/11/19 23:00 02/12/19 22:51 Remeron Solutab PO 15 mg QHS SHIRA Administration Ondansetron HCl 4 mg 02/11/19 22:09 02/12/19 21:29 Zofran IV 4 mg Q8H PRN Administration Nausea And Vomiting Oxycodone/Acetaminophen 1 tab 02/11/19 22:09 02/11/19 22:49 Percocet 5/325 PO 1 tab Q6H PRN Administration Pain, Moderate (4-6) Sodium Chloride 10 ml 02/11/19 23:00 02/12/19 22:52 Sodium Chloride Flush Syringe 10 Ml IV 10 ml BID SHIRA Administration Sodium Chloride 10 ml 02/11/19 22:09 Sodium Chloride Flush Syringe 10 Ml IV PRN PRN LINE FLUSH
[2019-02-13] MEDS: HumaLOG SUB-Q SCH ×4 (09:51→23:04)
[2019-02-13] MEDS: APRESOLINE PO SCH ×3 (09:52→21:12)
[2019-02-13] MEDS: PEPCID PO SCH ×2 (09:52→23:02)
[2019-02-13] MEDS: NORMODYNE PO SCH ×2 (09:53→23:02)
[2019-02-13] MEDS: IMDUR PO SCH (09:53)
[2019-02-13] MEDS: SODIUM CHLORIDE FLUSH SYRINGE 10 ML IV SCH (09:54)
[2019-02-13] MEDS: NORVASC PO SCH (09:54)
[2019-02-13] MEDS: ZOFRAN IV PRN ×2 (12:29→21:12)
--- NOTE | 2019-02-13 14:28 | Consultation ---
History of Present Illness - Reason for Consult Consult date: 02/13/19 HIV Requesting physician: CHRISTY LEVINE - History of Present Illness 33 y/o male with history of HIV infection since Mar [address] Samuel in [facility], currently off ART for 4 weeks since he was started on HD, now ESRD on hemodialysis, came to [place] for 3 weeks and came to the ED to arrange his HD as he is thinking about staying here with his mother. Denies any N/V/D, SOB, cough, fever, chills. Reports he had a recent kidney biopsy in [place] unknown results. In the ED, temp 98.4, HR 110, BP 190/124. WBC 7. Creat 8.2. Review of Systems: General: no fever, chills, no malaise Cutaneous: no rash, pruritus Head: no headaches or injury Eyes: no changes in vision, eye pain, double vision Ears: no ear pain, ear discharge, ringing or hearing loss Nose: no nose bleeding, stuffiness Mouth & throat: no bleeding gums, no horseness, no dental problems, or swollen glands Neck: no pain, node enlargement/lumps, tyroid enlargement or tenderness Respiratory: no cough, wheezing, sputum, hemoptysis, pleuritic chest pain Cardiovascular: no chest pain, leg edema, cyanosis, FLORES, orthopnea Musculoskeletal: no edema Gastrointestinal: no nausea, no vomiting, no hematemesis, diarrhea, constipation, melena, bright red blood in stools, fecal incontinence, jaundice Genitourinary/Reproductive: no frequent urination, dysuria, hematuria, incontinence Neurogical: no seizures, no headaches, no weakness, no paresthesias, no loss of speech or vision; no memory loss, no vertigo, no tremors, no numbness Psychiatric: stable mood; no excessive anxiety, sadness or moodiness Medications and Allergies Allergies Allergy/AdvReac Type Severity Reaction Status Date / Time Penicillins Allergy Hives Verified 02/11/19 14:13 Home Medications Medication Instructions Recorded Confirmed Last Taken Type ISOSORBIDE MONOnitrate [Imdur ER] 30 mg PO DAILY 02/11/19 02/11/19 Unknown History Labetalol [Labetalol 200mg TAB] 200 mg PO BID 02/11/19 02/11/19 02/11/19 History Mirtazapine Solutab [Remeron 15mg 15 mg PO QHS 02/11/19 02/11/19 02/10/19 History Solutab] amLODIPine [Norvasc] 5 mg PO DAILY 02/11/19 02/11/19 02/10/19 History hydrALAZINE [Apresoline TAB] 100 mg PO TID 02/11/19 02/11/19 02/11/19 History Active Meds: Active Medications Acetaminophen (Tylenol) 650 mg PO Q4H PRN PRN Reason: Pain MILD(1-3)/Fever >100.5/CHOUDHARY Amlodipine Besylate (Norvasc) 5 mg PO DAILY [facility] Last Admin: 02/13/19 09:54 Dose: 5 mg Documented by: Epoetin Jv (Procrit) 10,000 unit IV TORY PRN PRN Reason: hemodialysis Last Admin: 02/11/19 19:00 Dose: 10,000 unit Documented by: Famotidine (Pepcid) 10 mg PO BID [facility] Last Admin: 02/13/19 09:52 Dose: 10 mg Documented by: Hydralazine HCl (Apresoline) 100 mg PO TID [facility] Last Admin: 02/13/19 13:53 Dose: 100 mg Documented by: Hydromorphone HCl (Dilaudid) 0.5 mg IV Q3H PRN PRN Reason: Pain , Severe (7-10) Last Admin: 02/13/19 12:29 Dose: 0.5 mg Documented by: Sodium Chloride (Nacl 0.9%) 100 mls @ 999 mls/hr IV TORY PRN PRN Reason: Hypotension Sodium Chloride (Nacl 0.9%) 100 mls @ 999 mls/hr IV TORY PRN PRN Reason: Hypotension Insulin Glargine (Lantus) 15 units SUB-Q QHS [facility] Last Admin: 02/12/19 22:51 Dose: 15 units Documented by: Insulin Human Lispro (Humalog) 0 unit SUB-Q ACHS [facility]; Protocol Last Admin: 02/13/19 12:24 Dose: Not Given Documented by: Isosorbide Mononitrate (Imdur) 30 mg PO DAILY [facility] Last Admin: 02/13/19 09:53 Dose: 30 mg Documented by: Labetalol HCl (Normodyne) 200 mg PO BID [facility] Last Admin: 02/13/19 09:53 Dose: 200 mg Documented by: Mirtazapine (Remeron Solutab) 15 mg PO QHS [facility] Last Admin: 02/12/19 22:51 Dose: 15 mg Documented by: Ondansetron HCl (Zofran) 4 mg IV Q8H PRN PRN Reason: Nausea And Vomiting Last Admin: 02/13/19 12:29 Dose: 4 mg Documented by: Oxycodone/Acetaminophen (Percocet 5/325) 1 tab PO Q6H PRN PRN Reason: Pain, Moderate (4-6) Last Admin: 02/11/19 22:49 Dose: 1 tab Documented by: Sodium Chloride (Sodium Chloride Flush Syringe 10 Ml) 10 ml IV BID [facility] Last Admin: 02/13/19 09:54 Dose: 10 ml Documented by: Sodium Chloride (Sodium Chloride Flush Syringe 10 Ml) 10 ml IV PRN PRN PRN Reason: LINE FLUSH Physical Examination - Physical Exam Narrative exam: General appearance: Alert in NAD Eyes: anicteric sclerae, moist conjunctivae; no lid-lag; PERRLA HENT: Atraumatic; oropharynx clear with moist mucous membranes and no mucosal ulcerations/no oral thrush; normal hard and soft palate. Normal external ears. Neck: Trachea midline; supple, no thyromegaly or lymphadenopathy Lungs: CTA, with normal respiratory effort and no intercostal retractions CV: RRR no murmur Abdomen: Soft, non-tender; no masses or hepatosplenomegaly Extremities: no edema, cyanosis Skin: Normal temperature, turgor and texture; no rash, ulcers or subcutaneous nodules Psych: Appropriate affect, alert and oriented to person, place and time. Neuro: alert and oriented x 3. Moving all extermities right neck HD perm cath - Constitutional Vitals: Vital Signs Temp Pulse Resp BP Pulse Ox 98.3 F 100 H 16 168/93 96 02/13/19 11:13 02/13/19 11:13 02/13/19 11:13 02/13/19 11:13 02/13/19 11:13 Temperature -Last 24 Hours Temperature 98.3 F Temperature 98.3 F Temperature 97.2 F Results - Labs CBC & Chem 7: 02/13/19 03:52 02/13/19 03:52 Labs: Abnormal lab results 02/12/19 02/12/19 02/13/19 Range/Units 16:48 22:05 03:52 RBC 3.20 L (3.65-5.03) M/mm3 Hgb 9.5 L (11.8-15.2) gm/dl Hct 28.4 L (35.5-45.6) % BUN (9-20) mg/dL Creatinine (0.8-1.5) mg/dL Glucose (75-100) mg/dL POC Glucose 238 H 180 H (70-105) 02/13/19 02/13/19 02/13/19 Range/Units 03:52 08:18 12:26 RBC (3.65-5.03) M/mm3 Hgb (11.8-15.2) gm/dl Hct (35.5-45.6) % BUN 29 H (9-20) mg/dL Creatinine 6.0 H (0.8-1.5) mg/dL Glucose 175 H (75-100) mg/dL POC Glucose 112 H 138 H (70-105) Assessment and Plan Cultures: none Assessment: 33 y/o male with history of HIV infection since Mar [address] Samuel in [facility], currently off ART for 4 weeks since he was started on HD, now ESRD on hemodialysis, came to [place] for 3 weeks and came to the ED to arrange his HD 1) HIV infection: since Mar [address] Samuel in [facility], currently off ART for 4 weeks since he was started on HD 2) ESRD now on HD. Reports he had a recent kidney biopsy in [place] unknown results. 3) HTN uncontrolled Recommendations: - obtain HIV clinic records - check CD4/VL/genotype - keep off ART until genotype is available, needs to establish HIV clinic here Will follow. Michelle Miranda MD Infectious Diseases Track Coach [facility] M [phone] O [phone]
--- NOTE | 2019-02-13 14:36 | Progress Note ---
Assessment and Plan Assessment and plan: Patient is a 33-year-old man with a history of HIV, hypertension and End-stage renal disease on hemodialysis TTS who moved from [place] to [facility] for 3 weeks. Apparently arranged for hemodialysis as outpatient but unable to go there because they were not arranged properly. Patient comes in from missed hemodialysis. Patient is on hemodialysis Thursday. Had his hemodialysis on Thursday. Breasts yesterday which is . Comes to the [facility] emergency room for hemodialysis and for arrangements of hemodialysis as outpatient. No shortness of breath. No chest pain. No fever. Recent travel from [place] to [place] by a bus. Has low back pain secondary to sitting and bus for long hours. Patient also has a history of HIV but not taking any antiretrovirals (1) Missed dialysis Current Visit: Yes Status: Acute Plan to address problem: Patient needs hemodialysis Nephrology consulted (2) Volume overload Current Visit: Yes Status: Acute Qualifiers: Hypervolemia type: unspecified Qualified Code(s): E87.70 - Fluid overload, unspecified Plan to address problem: Secondary to missed hemodialysis Needs emergent hemodialysis Nephrology consulted (3) Hypertension Current Visit: Yes Status: Chronic Qualifiers: Hypertension type: essential hypertension Qualified Code(s): I10 - Essential (primary) hypertension Plan to address problem: Continue antihypertensives (4) Type 2 diabetes mellitus Current Visit: Yes Status: Chronic Qualifiers: 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 Plan to address problem: Patient started on Lantus 15 units subcutaneous at bedtime Check hemoglobin A1c (5) HIV (human immunodeficiency virus infection) Current Visit: Yes Status: Chronic Qualifiers: HIV symptom status: asymptomatic Qualified Code(s): Z21 - Asymptomatic hum an immunodeficiency virus [HIV] infection status Plan to address problem: Not on any antiretrovirals To follow with infectious disease consultants as outpatient ID consult was not requested (6) DVT prophylaxis Current Visit: Yes Status: Acute Plan to address problem: On heparin 5000 every 12 and GI prophylaxis Dispostion: continue inpatient care, trying to get him outpatient hemodialysis History Interval history: Patient was seen and examined. Follow-up on current diagnosis of ESRD. No overnight events reported to me. Patient denies any chest pain, shortness breath, nausea/vomiting or severe headaches. Imaging, nursing note, chart, labs and old chart reviewed. Discussed with patient. Hospitalist Physical - Physical exam Narrative exam: Gen: WDWN, NAD, Awake, Alert, Orientated HEENT: NCAT, EOMI, PERRL, OP Clear Neck: supple, no adenopathy, no thyromegaly, no JVD CVS/Heart: RRR, normal S1S2, pulses present bilaterally Chest/Lungs: CTA B, Symmetrical chest expansion, good air entry bilaterally GI/Abdomen: soft, NTND, good bowel sounds, no guarding or rebound /Bladder: no suprapubic tenderness, no CVA or paraspinal tenderness Extermity/Skin: no c/c/e, many tattoos MSK: FROM x 4 Neuro: CN 2-12 grossly intact, no new focal deficits Psych: calm - Constitutional Vitals: Temp Pulse Resp BP Pulse Ox 98.3 F 100 H 16 168/93 96 02/13/19 11:13 02/13/19 11:13 02/13/19 11:13 02/13/19 11:13 02/13/19 11:13 General appearance: Present: no acute distress, well-nourished Results - Labs CBC & Chem 7: 02/13/19 03:52 02/13/19 03:52 Labs: Laboratory Last Values WBC 8.1 K/mm3 (4.5-11.0) 02/13/19 03:52 RBC 3.20 M/mm3 (3.65-5.03) L 02/13/19 03:52 Hgb 9.5 gm/dl (11.8-15.2) L 02/13/19 03:52 Hct 28.4 % (35.5-45.6) L 02/13/19 03:52 MCV 89 fl (84-94) 02/13/19 03:52 MCH 30 pg (28-32) 02/13/19 03:52 MCHC 33 % (32-34) 02/13/19 03:52 RDW 14.1 % (13.2-15.2) 02/13/19 03:52 Plt Count 311 K/mm3 (140-440) 02/13/19 03:52 Lymph % (Auto) 28.4 % (13.4-35.0) 02/12/19 05:58 [place] % (Auto) 9.6 % (0.0-7.3) H 02/12/19 05:58 Eos % (Auto) 2.4 % (0.0-4.3) 02/12/19 05:58 Baso % (Auto) 0.9 % (0.0-1.8) 02/12/19 05:58 Lymph # 1.9 K/mm3 (1.2-5.4) 02/12/19 05:58 [place] # 0.6 K/mm3 (0.0-0.8) 02/12/19 05:58 Eos # 0.2 K/mm3 (0.0-0.4) 02/12/19 05:58 Baso # 0.1 K/mm3 (0.0-0.1) 02/12/19 05:58 Seg Neutrophils % 58.7 % (40.0-70.0) 02/12/19 05:58 Seg Neutrophils # 3.8 K/mm3 (1.8-7.7) 02/12/19 05:58 Sodium 137 mmol/L (137-145) 02/13/19 03:52 Potassium 4.2 mmol/L (3.6-5.0) 02/13/19 03:52 Chloride 99.5 mmol/L (98-107) 02/13/19 03:52 Carbon Dioxide 27 mmol/L (22-30) 02/13/19 03:52 15 mmol/L 02/13/19 03:52 BUN 29 mg/dL (9-20) H 02/13/19 03:52 6.0 mg/dL (0.8-1.5) H 02/13/19 03:52 Estimated GFR 13 ml/min 02/13/19 03:52 5 % 02/13/19 03:52 Glucose 175 mg/dL (75-100) H 02/13/19 03:52 POC Glucose 138 (70-105) H 02/13/19 12:26 5.7 % (4-6) 02/11/19 11:29 Calcium 8.5 mg/dL (8.4-10.2) 02/13/19 03:52 0.30 mg/dL (0.1-1.2) 02/12/19 05:58 AST 14 units/L (5-40) 02/12/19 05:58 ALT 11 units/L (7-56) 02/12/19 05:58 78 units/L (35-129) 02/12/19 05:58 6.8 g/dL (6.3-8.2) 02/12/19 05:58 2.9 g/dL (3.9-5) L 02/12/19 05:58 0.7 % 02/12/19 05:58 Hepatitis A IgM Ab Non-reactive (NonReactive) 02/11/19 14:30 Hep Bs Antigen Non-reactive (Negative) 02/11/19 14:30 Hep B Core IgM Ab Non-reactive (NonReactive) 02/11/19 14:30 Non-reactive (NonReactive) 02/11/19 14:30 Active Medications - Current Medications Current Medications: Generic Name Dose Route Start Last Admin Trade Name Freq PRN Reason Stop Dose Admin Acetaminophen 650 mg 02/11/19 22:09 Tylenol PO Q4H PRN Pain MILD(1-3)/Fever >100.5/CHOUDHARY Amlodipine Besylate 5 mg 02/12/19 10:00 02/13/19 09:54 Norvasc PO 5 mg DAILY SHIRA Administration Epoetin Jv 10,000 unit 02/11/19 14:07 02/11/19 19:00 Procrit IV 10,000 unit TORY PRN Administration hemodialysis Famotidine 10 mg 02/12/19 10:00 02/13/19 09:52 Pepcid PO 10 mg BID SHIRA Administration Hydralazine HCl 100 mg 02/12/19 08:00 02/13/19 13:53 Apresoline PO 100 mg TID SHIRA Administration Hydromorphone HCl 0.5 mg 02/11/19 22:09 02/13/19 12:29 Dilaudid IV 0.5 mg Q3H PRN Administration Pain , Severe (7-10) Sodium Chloride 100 mls @ 999 mls/hr 02/11/19 14:07 Nacl 0.9% IV TORY PRN Hypotension Sodium Chloride 100 mls @ 999 mls/hr 02/13/19 09:00 Nacl 0.9% IV TOYR PRN Hypotension Insulin Glargine 15 units 02/11/19 23:00 02/12/19 22:51 Lantus SUB-Q 15 units QHS SHIRA Administration Insulin Human Lispro 0 unit 02/12/19 07:30 02/13/19 12:24 Humalog SUB-Q Not Given ACHS [facility] Protocol Isosorbide Mononitrate 30 mg 02/12/19 10:00 02/13/19 09:53 Imdur PO 30 mg DAILY SHIRA Administration Labetalol HCl 200 mg 02/11/19 23:00 02/13/19 09:53 Normodyne PO 200 mg BID SHIRA Administration Mirtazapine 15 mg 02/11/19 23:00 02/12/19 22:51 Remeron Solutab PO 15 mg QHS SHIRA Administration Ondansetron HCl 4 mg 02/11/19 22:09 02/13/19 12:29 Zofran IV 4 mg Q8H PRN Administration Nausea And Vomiting Oxycodone/Acetaminophen 1 tab 02/11/19 22:09 02/11/19 22:49 Percocet 5/325 PO 1 tab Q6H PRN Administration Pain, Moderate (4-6) Sodium Chloride 10 ml 02/11/19 23:00 02/13/19 09:54 Sodium Chloride Flush Syringe 10 Ml IV 10 ml BID SHIRA Administration Sodium Chloride 10 ml 02/11/19 22:09 Sodium Chloride Flush Syringe 10 Ml IV PRN PRN LINE FLUSH
[2019-02-13] MEDS: REGLAN PO SCH (23:02)
[2019-02-13] MEDS: LANTUS SUB-Q SCH (23:03)
[2019-02-13] MEDS: REMERON SOLUTAB PO SCH (23:03)
[2019-02-14] MEDS: SODIUM CHLORIDE FLUSH SYRINGE 10 ML IV SCH ×2 (00:45→10:03)
[2019-02-14] MEDS: DILAUDID IV PRN ×6 (00:45→22:24)
[2019-02-14] MEDS: APRESOLINE PO SCH ×3 (08:31→22:24)
[2019-02-14] MEDS: REGLAN PO SCH ×4 (09:04→22:23)
[2019-02-14] MEDS: HumaLOG SUB-Q SCH ×3 (09:04→18:14)
--- NOTE | 2019-02-14 09:24 | Progress Note ---
Assessment and Plan 33 y/o male with history of HIV infection since Mar [address] Samuel in [facility], currently off ART for 4 weeks since he was started on HD, now ESRD on hemodialysis, came to [place] for 3 weeks and came to the ED to arrange his HD 1) HIV infection: since Mar [address] Samuel in [facility], currently off ART for 4 weeks since he was started on HD 2) ESRD now on HD. Reports he had a recent kidney biopsy in [place] unknown results. 3) HTN uncontrolled Recommendations: - obtain HIV clinic records - follow-up CD4/VL/genotype - keep off ART until genotype is available, needs to establish HIV clinic here -Follow up ID in clinic 4-6 weeks (sent to appointment scheduler) [facility] M: [phone] O:[phone] Subjective Date of service: 02/14/19 Principal diagnosis: ESRD Interval history: Patient seen and examined. Reports generalized weakness, post HD. No fevers. Objective - Exam Narrative Exam: General appearance: Asleep. Easily arousable. Generalized weakness. Eyes: anicteric sclerae, moist conjunctivae; no lid-lag; PERRLA HENT: Atraumatic; oropharynx clear with moist mucous membranes and no mucosal ulcerations/no oral thrush; normal hard and soft palate. Normal external ears. Neck: Trachea midline; supple, no thyromegaly or lymphadenopathy Lungs: CTA, with normal respiratory effort and no intercostal retractions CV: RRR no murmur Abdomen: Soft, non-tender; no masses or hepatosplenomegaly Extremities: no edema, cyanosis Skin: Normal temperature, turgor and texture; no rash, ulcers or subcutaneous nodules Psych: Appropriate affect, oriented to person, place and time. Neuro: Asleep, easily arousable. oriented x 3. Moving all extremities right neck HD perm cath - Constitutional Vitals: Vital Signs Temp Pulse Resp BP Pulse Ox 98.7 F 102 H 20 132/69 96 02/14/19 06:45 02/14/19 06:45 02/14/19 06:45 02/14/19 06:45 02/14/19 06:45 Temperature -Last 24 Hours Temperature 98.7 F Temperature 98.5 F Temperature 98.0 F Temperature 98.3 F - Labs CBC & Chem 7: 02/13/19 03:52 02/13/19 03:52 Labs: Abnormal lab results 02/13/19 02/13/19 02/13/19 Range/Units 12:26 16:31 22:38 POC Glucose 138 H 174 H 149 H (70-105) 02/14/19 Range/Units 07:28 POC Glucose 172 H (70-105)
--- NOTE | 2019-02-14 09:54 | Progress Note ---
Assessment and Plan - Patient Problems (1) ESRD (end stage renal disease) Current Visit: Yes Status: Acute Plan to address problem: cont HD on MWF schedule. Case management to arrange outpatient HD. (2) Hypertensive chronic kidney disease with stage 5 chronic kidney disease or end stage renal disease Current Visit: Yes Status: Acute Plan to address problem: resume home BP meds. Will monitor BP and adjust UF accordingly (3) HIV (human immunodeficiency virus infection) Current Visit: Yes Status: Chronic Qualifiers: HIV symptom status: asymptomatic Qualified Code(s): Z21 - Asymptomatic human immunodeficiency virus [HIV] infection status Plan to address problem: pt needs outpatient ID f/u Subjective Date of service: 02/14/19 Principal diagnosis: ESRD Interval history: Patient awake, alert, in NAD, denies SOB, CP, palpitations, fever, chills, n/v/d Objective - Vital Signs Vital signs: Vital Signs - 12hr 02/14/19 02/14/19 02/14/19 00:00 00:23 06:45 Temperature 98.5 F 98.7 F Pulse Rate 111 H 102 H Respiratory 20 20 20 Rate Blood Pressure 153/77 132/69 O2 Sat by Pulse 98 96 Oximetry - General Appearance General appearance: well-developed, well-nourished, appears stated age EENT: ATNC, PERRL, mucous membranes moist Neck: no JVD Respiratory: Present: Clear to Ascultation Cardiology: regular, S1S2 Gastrointestinal: normoactive bowel sounds Integumentary: no rash, other (no edema ) Neurologic: no focal deficit, alert and oriented x3, strength 5/5, CN 3-12 intact Psychiatric: mood/affect appropriate, cooperative - Lab 02/13/19 03:52 02/13/19 03:52 Most recent lab results Calcium 8.5 mg/dL (8.4-10.2) 02/13/19 03:52 Medications & Allergies - Medications Allergies/Adverse Reactions: Allergies Penicillins Allergy (Verified 02/11/19 14:13) Hives Home Medications: Home Medications Medication Instructions Recorded Confirmed Last Taken Type ISOSORBIDE MONOnitrate [Imdur ER] 30 mg PO DAILY 02/11/19 02/11/19 Unknown History Labetalol [Labetalol 200mg TAB] 200 mg PO BID 02/11/19 02/11/19 02/11/19 History Mirtazapine Solutab [Remeron 15mg 15 mg PO QHS 02/11/19 02/11/19 02/10/19 History Solutab] amLODIPine [Norvasc] 5 mg PO DAILY 02/11/19 02/11/19 02/10/19 History hydrALAZINE [Apresoline TAB] 100 mg PO TID 02/11/19 02/11/19 02/11/19 History Active Medications: Generic Name Dose Route Start Last Admin Trade Name Freq PRN Reason Stop Dose Admin Acetaminophen 650 mg 02/11/19 22:09 Tylenol PO Q4H PRN Pain MILD(1-3)/Fever >100.5/CHOUDHARY Amlodipine Besylate 5 mg 02/12/19 10:00 02/13/19 09:54 Norvasc PO 5 mg DAILY SHIRA Administration Epoetin Jv 10,000 unit 02/11/19 14:07 02/11/19 19:00 Procrit IV 10,000 unit TORY PRN Administration hemodialysis Famotidine 10 mg 02/12/19 10:00 02/13/19 23:02 Pepcid PO 10 mg BID SHIRA Administration Hydralazine HCl 100 mg 02/12/19 08:00 02/14/19 08:31 Apresoline PO Not Given TID SHIRA Hydromorphone HCl 0.5 mg 02/11/19 22:09 02/14/19 07:41 Dilaudid IV 0.5 mg Q3H PRN Administration Pain , Severe (7-10) Sodium Chloride 100 mls @ 999 mls/hr 02/11/19 14:07 Nacl 0.9% IV TORY PRN Hypotension Sodium Chloride 100 mls @ 999 mls/hr 02/13/19 09:00 Nacl 0.9% IV TORY PRN Hypotension Insulin Glargine 15 units 02/11/19 23:00 02/13/19 23:03 Lantus SUB-Q 15 units QHS SHIRA Administration Insulin Human Lispro 0 unit 02/12/19 07:30 02/14/19 09:04 Humalog SUB-Q 2 unit ACHS SHIRA Administration Protocol Isosorbide Mononitrate 30 mg 02/12/19 10:00 02/13/19 09:53 Imdur PO 30 mg DAILY SHIRA Administration Labetalol HCl 200 mg 02/11/19 23:00 07/21/19 23:02 Normodyne PO 200 mg BID SHIRA Administration Metoclopramide HCl 10 mg 02/13/19 22:00 02/14/19 09:04 Reglan PO 10 mg ACHS SHIRA Administration Mirtazapine 15 mg 02/11/19 23:00 02/13/19 23:03 Remeron Solutab PO 15 mg QHS SHIRA Administration Ondansetron HCl 4 mg 02/11/19 22:09 02/13/19 21:12 Zofran IV 4 mg Q8H PRN Administration Nausea And Vomiting Oxycodone/Acetaminophen 1 tab 02/11/19 22:09 02/11/19 22:49 Percocet 5/325 PO 1 tab Q6H PRN Administration Pain, Moderate (4-6) Sodium Chloride 10 ml 02/11/19 23:00 02/14/19 00:45 Sodium Chloride Flush Syringe 10 Ml IV 10 ml BID SHIRA Administration Sodium Chloride 10 ml 02/11/19 22:09 Sodium Chloride Flush Syringe 10 Ml IV PRN PRN LINE FLUSH
[2019-02-14] MEDS: NORVASC PO SCH (10:03)
[2019-02-14] MEDS: NORMODYNE PO SCH ×2 (10:03→22:24)
[2019-02-14] MEDS: IMDUR PO SCH (10:03)
[2019-02-14] MEDS: PEPCID PO SCH ×2 (10:03→22:23)
[2019-02-14] MEDS: PROCRIT IV PRN (12:52)
--- NOTE | 2019-02-14 14:20 | Progress Note ---
Assessment and Plan Assessment and plan: Patient is a 33-year-old man with a history of HIV, hypertension and End-stage renal disease on hemodialysis TTS who moved from [place] to [place] area for 3 weeks. Apparently arranged for hemodialysis as outpatient but unable to go there because they were not properly arranged. Patient comes in from missed hemodialysis. Recent travel from [place] to [place] by a bus. Patient also has a history of HIV but not taking any antiretrovirals ESRD on hemodialysis: Nephrology is following Missed dialysis: counseling done Hypertension: low salt diet, antihypertensives Type 2 diabetes mellitus: ssi, accucheck HIV (human immunodeficiency virus infection): ID following DVT prophylaxis: On heparin 5000 every 12 and GI prophylaxis Disposition: continue inpatient care, trying to get him outpatient hemodialysis History Interval history: Patient was seen and examined. Follow-up on current diagnosis of ESRD. No overnight events reported to me. Patient denies any chest pain, shortness breath, nausea/vomiting or severe headaches. Imaging, nursing note, chart, labs and old chart reviewed. Discussed with patient. Hospitalist Physical - Physical exam Narrative exam: Gen: WDWN, NAD, Awake, Alert, Orientated HEENT: NCAT, EOMI, PERRL, OP Clear Neck: supple, no adenopathy, no thyromegaly, no JVD CVS/Heart: RRR, normal S1S2, pulses present bilaterally Chest/Lungs: CTA B, Symmetrical chest expansion, good air entry bilaterally GI/Abdomen: soft, NTND, good bowel sounds, no guarding or rebound /Bladder: no suprapubic tenderness, no CVA or paraspinal tenderness Extermity/Skin: no c/c/e, many tattoos MSK: FROM x 4 Neuro: CN 2-12 grossly intact, no new focal deficits Psych: calm - Constitutional Vitals: Temp Pulse Resp BP Pulse Ox 98.7 F 99 H 20 141/78 96 02/14/19 13:15 02/14/19 13:15 02/14/19 13:15 02/14/19 13:15 02/14/19 06:45 General appearance: Present: no acute distress, well-nourished Results - Labs CBC & Chem 7: 02/13/19 03:52 02/13/19 03:52 Labs: Laboratory Last Values WBC 8.1 K/mm3 (4.5-11.0) 02/13/19 03:52 RBC 3.20 M/mm3 (3.65-5.03) L 02/13/19 03:52 Hgb 9.5 gm/dl (11.8-15.2) L 02/13/19 03:52 Hct 28.4 % (35.5-45.6) L 02/13/19 03:52 MCV 89 fl (84-94) 02/13/19 03:52 MCH 30 pg (28-32) 02/13/19 03:52 MCHC 33 % (32-34) 02/13/19 03:52 RDW 14.1 % (13.2-15.2) 02/13/19 03:52 Plt Count 311 K/mm3 (140-440) 02/13/19 03:52 Lymph % (Auto) 28.4 % (13.4-35.0) 02/12/19 05:58 [place] % (Auto) 9.6 % (0.0-7.3) H 02/12/19 05:58 Eos % (Auto) 2.4 % (0.0-4.3) 02/12/19 05:58 Baso % (Auto) 0.9 % (0.0-1.8) 02/12/19 05:58 Lymph # 1.9 K/mm3 (1.2-5.4) 02/12/19 05:58 [place] # 0.6 K/mm3 (0.0-0.8) 02/12/19 05:58 Eos # 0.2 K/mm3 (0.0-0.4) 02/12/19 05:58 Baso # 0.1 K/mm3 (0.0-0.1) 02/12/19 05:58 Seg Neutrophils % 58.7 % (40.0-70.0) 02/12/19 05:58 Seg Neutrophils # 3.8 K/mm3 (1.8-7.7) 02/12/19 05:58 Sodium 137 mmol/L (137-145) 02/13/19 03:52 Potassium 4.2 mmol/L (3.6-5.0) 02/13/19 03:52 Chloride 99.5 mmol/L (98-107) 02/13/19 03:52 Carbon Dioxide 27 mmol/L (22-30) 02/13/19 03:52 15 mmol/L 02/13/19 03:52 BUN 29 mg/dL (9-20) H 02/13/19 03:52 6.0 mg/dL (0.8-1.5) H 02/13/19 03:52 Estimated GFR 13 ml/min 02/13/19 03:52 5 % 02/13/19 03:52 Glucose 175 mg/dL (75-100) H 02/13/19 03:52 POC Glucose 172 (70-105) H 02/14/19 07:28 5.7 % (4-6) 02/11/19 11:29 Calcium 8.5 mg/dL (8.4-10.2) 02/13/19 03:52 0.30 mg/dL (0.1-1.2) 02/12/19 05:58 AST 14 units/L (5-40) 02/12/19 05:58 ALT 11 units/L (7-56) 02/12/19 05:58 78 units/L (35-129) 02/12/19 05:58 6.8 g/dL (6.3-8.2) 02/12/19 05:58 2.9 g/dL (3.9-5) L 02/12/19 05:58 0.7 % 02/12/19 05:58 RPR Nonreactive (Nonreactive) 02/13/19 17:37 Hepatitis A IgM Ab Non-reactive (NonReactive) 02/11/19 14:30 Hep Bs Antigen Non-reactive (Negative) 02/11/19 14:30 Hep B Core IgM Ab Non-reactive (NonReactive) 02/11/19 14:30 Non-reactive (NonReactive) 02/11/19 14:30 Active Medications - Current Medications Current Medications: Generic Name Dose Route Start Last Admin Trade Name Freq PRN Reason Stop Dose Admin Acetaminophen 650 mg 02/11/19 22:09 Tylenol PO Q4H PRN Pain MILD(1-3)/Fever >100.5/CHOUDHARY Amlodipine Besylate 5 mg 02/12/19 10:00 02/14/19 10:03 Norvasc PO Not Given DAILY SHIRA Epoetin Jv 10,000 unit 02/11/19 14:07 02/14/19 12:52 Procrit IV 10,000 unit TORY PRN Administration hemodialysis Famotidine 10 mg 02/12/19 10:00 02/14/19 10:03 Pepcid PO Not Given BID [facility] Hydralazine HCl 100 mg 02/12/19 08:00 02/14/19 08:31 Apresoline PO Not Given TID [facility] Hydromorphone HCl 0.5 mg 02/11/19 22:09 02/14/19 07:41 Dilaudid IV 0.5 mg Q3H PRN Administration Pain , Severe (7-10) Sodium Chloride 100 mls @ 999 mls/hr 02/11/19 14:07 Nacl 0.9% IV TORY PRN Hypotension Sodium Chloride 100 mls @ 999 mls/hr 02/13/19 09:00 Nacl 0.9% IV TORY PRN Hypotension Insulin Glargine 15 units 02/11/19 23:00 02/13/19 23:03 Lantus SUB-Q 15 units QHS [facility] Administration Insulin Human Lispro 0 unit 02/12/19 07:30 02/14/19 13:03 Humalog SUB-Q Not Given ACHS [facility] Protocol Isosorbide Mononitrate 30 mg 02/12/19 10:00 02/14/19 10:03 Imdur PO Not Given DAILY [facility] Labetalol HCl 200 mg 02/11/19 23:00 02/14/19 10:03 Normodyne PO Not Given BID [facility] Metoclopramide HCl 10 mg 02/13/19 22:00 02/14/19 13:03 Reglan PO Not Given ACHS [facility] Mirtazapine 15 mg 02/11/19 23:00 02/13/19 23:03 Remeron Solutab PO 15 mg QHS [facility] Administration Ondansetron HCl 4 mg 02/11/19 22:09 02/13/19 21:12 Zofran IV 4 mg Q8H PRN Administration Nausea And Vomiting Oxycodone/Acetaminophen 1 tab 02/11/19 22:09 02/11/19 22:49 Percocet 5/325 PO 1 tab Q6H PRN Administration Pain, Moderate (4-6) Sodium Chloride 10 ml 02/11/19 23:00 02/14/19 10:03 Sodium Chloride Flush Syringe 10 Ml IV Not Given BID [facility] Sodium Chloride 10 ml 02/11/19 22:09 Sodium Chloride Flush Syringe 10 Ml IV PRN PRN LINE FLUSH
[2019-02-14] MEDS: REMERON SOLUTAB PO SCH (22:00)
[2019-02-14] MEDS: LANTUS SUB-Q SCH (22:25)
[2019-02-15] MEDS: DILAUDID IV PRN ×6 (02:22→22:39)
[2019-02-15] MEDS: HumaLOG SUB-Q SCH ×5 (02:34→22:38)
[2019-02-15] MEDS: SODIUM CHLORIDE FLUSH SYRINGE 10 ML IV SCH ×3 (02:35→22:40)
[2019-02-15 04:59] LABS: Hematocrit 25.6 % (35.5-45.6); Hemoglobin 8.7 gm/dl (11.8-15.2); Mean Corpuscular HGB Conc 34 % (32-34); Mean Corpuscular Volume 88 fl (84-94); Platelet Count 234 K/mm3 (140-440); Red Blood Count 2.93 M/mm3 (3.65-5.03); Red Cell Distribution Width 13.8 % (13.2-15.2)
[2019-02-15 05:18] LABS: Calcium 7.9 mg/dL (8.4-10.2)
[2019-02-15] MEDS: APRESOLINE PO SCH ×3 (09:29→22:38)
[2019-02-15] MEDS: REGLAN PO SCH ×4 (09:30→22:38)
[2019-02-15] MEDS: IMDUR PO SCH (10:27)
[2019-02-15] MEDS: NORVASC PO SCH (10:27)
[2019-02-15] MEDS: NORMODYNE PO SCH ×2 (10:27→22:37)
[2019-02-15] MEDS: PEPCID PO SCH ×2 (10:28→22:37)
--- NOTE | 2019-02-15 10:57 | Progress Note ---
Assessment and Plan - Patient Problems (1) ESRD (end stage renal disease) Current Visit: Yes Status: Acute Plan to address problem: cont HD on MWF schedule. Case management to arrange outpatient HD. (2) Hypertensive chronic kidney disease with stage 5 chronic kidney disease or end stage renal disease Current Visit: Yes Status: Acute Plan to address problem: resume home BP meds. Will monitor BP and adjust UF accordingly (3) HIV (human immunodeficiency virus infection) Current Visit: Yes Status: Chronic Qualifiers: HIV symptom status: asymptomatic Qualified Code(s): Z21 - Asymptomatic human immunodeficiency virus [HIV] infection status Plan to address problem: pt needs outpatient ID f/u Subjective Date of service: 02/15/19 Principal diagnosis: ESRD Interval history: Patient awake, alert, in NAD, denies SOB, CP, palpitations, fever, chills, n/v/d Objective - Vital Signs Vital signs: Vital Signs - 12hr 02/15/19 02/15/19 00:37 05:44 Temperature 98.4 F 98.9 F Pulse Rate 130 H 103 H Respiratory 20 18 Rate Blood Pressure 157/87 126/62 O2 Sat by Pulse 96 97 Oximetry - General Appearance General appearance: well-developed, well-nourished, appears stated age EENT: ATNC, PERRL, mucous membranes moist Neck: no JVD Respiratory: Present: Clear to Ascultation Cardiology: regular, S1S2 Gastrointestinal: normoactive bowel sounds Integumentary: no rash, other (no edema ) Neurologic: no focal deficit, alert and oriented x3, strength 5/5, CN 3-12 intact Psychiatric: mood/affect appropriate, cooperative - Lab 02/15/19 04:39 02/15/19 04:39 Most recent lab results Calcium 7.9 mg/dL (8.4-10.2) L 02/15/19 04:39 Medications & Allergies - Medications Allergies/Adverse Reactions: Allergies Penicillins Allergy (Verified 02/11/19 14:13) Hives Home Medications: Home Medications Medication Instructions Recorded Confirmed Last Taken Type ISOSORBIDE MONOnitrate [Imdur ER] 30 mg PO DAILY 02/11/19 02/11/19 Unknown Hi story Labetalol [Labetalol 200mg TAB] 200 mg PO BID 02/11/19 02/11/19 02/11/19 History Mirtazapine Solutab [Remeron 15mg 15 mg PO QHS 02/11/19 02/11/19 02/10/19 History Solutab] amLODIPine [Norvasc] 5 mg PO DAILY 02/11/19 02/11/19 02/10/19 History hydrALAZINE [Apresoline TAB] 100 mg PO TID 02/11/19 02/11/19 02/11/19 History Active Medications: Generic Name Dose Route Start Last Admin Trade Name Freq PRN Reason Stop Dose Admin Acetaminophen 650 mg 02/11/19 22:09 Tylenol PO Q4H PRN Pain MILD(1-3)/Fever >100.5/CHOUDHARY Amlodipine Besylate 5 mg 02/12/19 10:00 02/15/19 10:27 Norvasc PO 5 mg DAILY SHIRA Administration Epoetin Jv 10,000 unit 02/11/19 14:07 02/14/19 12:52 Procrit IV 10,000 unit TORY PRN Administration hemodialysis Famotidine 10 mg 02/12/19 10:00 02/15/19 10:28 Pepcid PO 10 mg BID SHIRA Administration Hydralazine HCl 100 mg 02/12/19 08:00 02/15/19 09:29 Apresoline PO 100 mg TID SHIRA Administration Hydromorphone HCl 0.5 mg 02/11/19 22:09 02/15/19 10:28 Dilaudid IV 0.5 mg Q3H PRN Administration Pain , Severe (7-10) Sodium Chloride 100 mls @ 999 mls/hr 02/13/19 09:00 Nacl 0.9% IV TORY PRN Hypotension Insulin Glargine 15 units 02/11/19 23:00 02/14/19 22:25 Lantus SUB-Q 15 units QHS SHIRA Administration Insulin Human Lispro 0 unit 02/12/19 07:30 02/15/19 09:30 Humalog SUB-Q 3 unit ACHS SHIRA Administration Protocol Isosorbide Mononitrate 30 mg 02/12/19 10:00 02/15/19 10:27 Imdur PO 30 mg DAILY SHIRA Administration Labetalol HCl 200 mg 02/11/19 23:00 02/15/19 10:27 Normodyne PO 200 mg BID SHIRA Administration Metoclopramide HCl 10 mg 02/13/19 22:00 02/15/19 09:30 Reglan PO 10 mg ACHS SHIRA Administration Mirtazapine 15 mg 02/11/19 23:00 02/14/19 22:00 Remeron Solutab PO 15 mg QHS SHIRA Administration Ondansetron HCl 4 mg 02/11/19 22:09 02/13/19 21:12 Zofran IV 4 mg Q8H PRN Administration Nausea And Vomiting Oxycodone/Acetaminophen 1 tab 02/11/19 22:09 02/11/19 22:49 Percocet 5/325 PO 1 tab Q6H PRN Administration Pain, Moderate (4-6) Sodium Chloride 10 ml 02/11/19 23:00 02/15/19 10:28 Sodium Chloride Flush Syringe 10 Ml IV 10 ml BID SHIRA Administration Sodium Chloride 10 ml 02/11/19 22:09 Sodium Chloride Flush Syringe 10 Ml IV PRN PRN LINE FLUSH
--- NOTE | 2019-02-15 11:57 | Progress Note ---
Assessment and Plan ESRD on hemodialysis: - Nephrology is following, need outpt HD setup Missed dialysis: counseling done Hypertension: low salt diet, antihypertensives Type 2 diabetes mellitus: ssi, accucheck HIV (human immunodeficiency virus infection): ID following DVT prophylaxis: On heparin 5000 every 12 and GI prophylaxis Disposition: d/c when outpatient hemodialysis is set up by CM Brief History Patient is a 33-year-old man with a history of HIV, hypertension and End-stage renal disease on hemodialysis TTS who moved from [place] to [facility] for 3 weeks. Apparently arranged for hemodialysis as outpatient but unable to go there because they were not properly arranged. Patient comes in from missed hemodialysis. Recent travel from [place] to [place] by a bus. Patient al so has a history of HIV but not taking any antiretrovirals Hospitalist Physical Gen: WDWN, NAD, Awake, Alert, Orientated HEENT: NCAT, EOMI, PERRL, OP Clear Neck: supple, no adenopathy, no thyromegaly, no JVD CVS/Heart: RRR, normal S1S2, pulses present bilaterally Chest/Lungs: CTA B, Symmetrical chest expansion, good air entry bilaterally GI/Abdomen: soft, NTND, good bowel sounds, no guarding or rebound /Bladder: no suprapubic tenderness, no CVA or paraspinal tenderness Extermity/Skin: no c/c/e, many tattoos MSK: FROM x 4 Neuro: CN 2-12 grossly intact, no new focal deficits Psych: calm Subjective Date of service: 02/15/19 Principal diagnosis: ESRD Interval history: Patient seen and examined. Medical records and medication list reviewed. No acute event overnight noted by the RN. Patient denies any chest pain or difficulty breathing. Patient is tolerating diet. Discussed plan of care at bedside with patient. Objective - Constitutional Vitals: Vital Signs - 12hr 02/15/19 02/15/19 00:37 05:44 Temperature 98.4 F 98.9 F Pulse Rate 130 H 103 H Respiratory 20 18 Rate Blood Pressure 157/87 126/62 O2 Sat by Pulse 96 97 Oximetry - Labs CBC & Chem 7: 02/15/19 04:39 02/15/19 04:39 Labs: Abnormal lab results 02/14/19 02/14/19 02/15/19 Range/Units 18:05 22:46 04:39 RBC 2.93 L (3.65-5.03) M/mm3 Hgb 8.7 L (11.8-15.2) gm/dl Hct 25.6 L (35.5-45.6) % Sodium (137-145) mmol/L Chloride (98-107) mmol/L BUN (9-20) mg/dL Creatinine (0.8-1.5) mg/dL Glucose (75-100) mg/dL POC Glucose 253 H 174 H (70-105) Calcium (8.4-10.2) mg/dL 02/15/19 02/15/19 Range/Units 04:39 07:47 RBC (3.65-5.03) M/mm3 Hgb (11.8-15.2) gm/dl Hct (35.5-45.6) % Sodium 135 L (137-145) mmol/L Chloride 97.1 L (98-107) mmol/L BUN 26 H (9-20) mg/dL Creatinine 4.8 H (0.8-1.5) mg/dL Glucose 260 H (75-100) mg/dL POC Glucose 216 H (70-105) Calcium 7.9 L (8.4-10.2) mg/dL
[2019-02-15] MEDS: PERCOCET 5/325 PO PRN (13:02)
[2019-02-15] MEDS: LANTUS SUB-Q SCH (22:38)
[2019-02-15] MEDS: REMERON SOLUTAB PO SCH (22:39)
[2019-02-16] MEDS: DILAUDID IV PRN ×5 (04:09→22:04)
[2019-02-16] MEDS ORDERED: APRESOLINE IV PRN (05:33)
[2019-02-16] MEDS: REGLAN PO SCH ×4 (08:45→21:59)
[2019-02-16] MEDS: APRESOLINE PO SCH ×3 (08:45→21:59)
[2019-02-16] MEDS: HumaLOG SUB-Q SCH ×4 (08:46→22:53)
[2019-02-16] MEDS: NORMODYNE PO SCH ×2 (09:31→21:59)
[2019-02-16] MEDS: PEPCID PO SCH ×2 (09:31→21:58)
--- NOTE | 2019-02-16 09:52 | Progress Note ---
Assessment and Plan - Patient Problems (1) ESRD (end stage renal disease) Current Visit: Yes Status: Acute Plan to address problem: cont HD on MWF schedule. Case management to arrange outpatient HD. (2) Hypertensive chronic kidney disease with stage 5 chronic kidney disease or end stage renal disease Current Visit: Yes Status: Acute Plan to address problem: resume home BP meds. Will monitor BP and adjust UF accordingly (3) HIV (human immunodeficiency virus infection) Current Visit: Yes Status: Chronic Qualifiers: HIV symptom status: asymptomatic Qualified Code(s): Z21 - Asymptomatic human immunodeficiency virus [HIV] infection status Plan to address problem: pt needs outpatient ID f/u Subjective Date of service: 02/16/19 Principal diagnosis: ESRD Interval history: Patient awake, alert, in NAD, denies SOB, CP, palpitations, fever, chills, n/v/d Objective - Vital Signs Vital signs: Vital Signs - 12hr 02/15/19 02/15/19 02/16/19 22:37 23:35 04:09 Temperature 98.4 F Pulse Rate 107 H 100 H Respiratory 20 20 Rate Blood Pressure 155/95 143/86 O2 Sat by Pulse 94 Oximetry 02/16/19 02/16/19 05:25 05:45 Temperature 98.3 F Pulse Rate 110 H 111 H Respiratory 22 Rate Blood Pressure 186/108 186/108 O2 Sat by Pulse 95 Oximetry - General Appearance General appearance: well-developed, well-nourished, appears stated age EENT: ATNC, PERRL, mucous membranes moist Neck: no JVD Respiratory: Present: Clear to Ascultation Cardiology: regular, S1S2 Gastrointestinal: normoactive bowel sounds Integumentary: no rash, other (no edema ) Neurologic: no focal deficit, alert and oriented x3, strength 5/5, CN 3-12 intact Psychiatric: mood/affect appropriate, cooperative - Lab 02/15/19 04:39 02/15/19 04:39 Most recent lab results Calcium 7.9 mg/dL (8.4-10.2) L 02/15/19 04:39 Medications & Allergies - Medications Allergies/Adverse Reactions: Allergies Penicillins Allergy (Verified 02/11/19 14:13) Hives Home Medications: Home Medications Medication Instructions Recorded Confirmed Last Taken Type ISOSORBIDE MONOnitrate [Imdur ER] 30 mg PO DAILY 02/11/19 02/11/19 Unknown History Labetalol [Labetalol 200mg TAB] 200 mg PO BID 02/11/19 02/11/19 02/11/19 History Mirtazapine Solutab [Remeron 15mg 15 mg PO QHS 02/11/19 02/11/19 02/10/19 History Solutab] amLODIPine [Norvasc] 5 mg PO DAILY 02/11/19 02/11/19 02/10/19 History hydrALAZINE [Apresoline TAB] 100 mg PO TID 02/11/19 02/11/19 02/11/19 History Active Medications: Generic Name Dose Route Start Last Admin Trade Name Freq PRN Reason Stop Dose Admin Acetaminophen 650 mg 02/11/19 22:09 Tylenol PO Q4H PRN Pain MILD(1-3)/Fever >100.5/CHOUDHARY Amlodipine Besylate 5 mg 02/12/19 10:00 02/15/19 10:27 Norvasc PO 5 mg DAILY SHIRA Administration Epoetin Jv 10,000 unit 02/11/19 14:07 02/14/19 12:52 Procrit IV 10,000 unit TORY PRN Administration hemodialysis Famotidine 10 mg 02/12/19 10:00 02/16/19 09:31 Pepcid PO 10 mg BID SHIRA Administration Hydralazine HCl 100 mg 02/12/19 08:00 02/16/19 08:45 Apresoline PO 100 mg TID SHIRA Administration Hydralazine HCl 10 mg 02/16/19 05:33 02/16/19 05:45 Apresoline IV 10 mg Q4HR PRN Administration Blood Pressure Hydromorphone HCl 0.5 mg 02/11/19 22:09 02/16/19 08:45 Dilaudid IV 0.5 mg Q3H PRN Administration Pain , Severe (7-10) Sodium Chloride 100 mls @ 999 mls/hr 02/13/19 09:00 Nacl 0.9% IV TORY PRN Hypotension Insulin Glargine 15 units 02/11/19 23:00 02/15/19 22:38 Lantus SUB-Q 15 units QHS SHIRA Administration Insulin Human Lispro 0 unit 02/12/19 07:30 02/16/19 08:46 Humalog SUB-Q Not Given ACHS SHIRA Protocol Isosorbide Mononitrate 30 mg 02/12/19 10:00 02/15/19 10:27 Imdur PO 30 mg DAILY SHIRA Administration Labetalol HCl 200 mg 02/11/19 23:00 02/16/19 09:31 Normodyne PO 200 mg BID SHIRA Administration Metoclopramide HCl 10 mg 02/13/19 22:00 02/16/19 08:45 Reglan PO 10 mg ACHS SHIRA Administration Mirtazapine 15 mg 02/11/19 23:00 02/15/19 22:39 Remeron Solutab PO 15 mg QHS SHIRA Administration Ondansetron HCl 4 mg 02/11/19 22:09 02/13/19 21:12 Zofran IV 4 mg Q8H PRN Administration Nausea And Vomiting Oxycodone/Acetaminophen 1 tab 02/11/19 22:09 02/15/19 13:02 Percocet 5/325 PO 1 tab Q6H PRN Administration Pain, Moderate (4-6) Sodium Chloride 10 ml 02/11/19 23:00 02/15/19 22:40 Sodium Chloride Flush Syringe 10 Ml IV 10 ml BID SHIRA Administration Sodium Chloride 10 ml 02/11/19 22:09 Sodium Chloride Flush Syringe 10 Ml IV PRN PRN LINE FLUSH
--- NOTE | 2019-02-16 11:27 | XRay Report ---
CHEST 2 VIEWS 1108 INDICATION / CLINICAL INFORMATION: Dialysis. COMPARISON: None available. FINDINGS: SUPPORT DEVICES: A large bore right subclavian central line is seen with tip in the area of the atria l caval junction. HEART / MEDIASTINUM: No significant abnormality. LUNGS / PLEURA: No significant pulmonary or pleural abnormality. No pneumothorax. ADDITIONAL FINDINGS: No significant additional findings. IMPRESSION: No significant acute abnormality. Central line placement is radiographically acceptable w ithout obvious complication. Signer Name: Sunny Harvey MD Signed: 02/16/2019 11:22 AM Workstation Name: [id number]
[2019-02-16] MEDS: SODIUM CHLORIDE FLUSH SYRINGE 10 ML IV SCH ×2 (13:42→22:00)
[2019-02-16] MEDS: PERCOCET 5/325 PO PRN (13:44)
--- NOTE | 2019-02-16 14:09 | Discharge Summary ---
Providers - Providers Date of Admission: 02/14/19 11:34 Date of discharge: 02/17/19 Attending physician: EMERALD PALAFOX 02/11/19 Consult to Case Management [CONS] Routine Services Needed at Discharge: Wick Tender Notified:: left for CM Comment:: Arrange for hemodialysis as outpatient 02/11/19 13:55 Consult to Physician [CONS] Routine Comment: DR PAVAN RAMIREZ W/DR SABA @1351 Consulting Provider: TIMOTEO SABA Physician Instructions: Reason For Exam: hd 02/12/19 15:37 Consult to Physician [CONS] Routine Comment: Consulting Provider: PRESTON DAIGLE Physician Instructions: Reason For Exam: HIV [facility] Condition: Critical Hospital course: Discharge diagnosis: ESRD on hemodialysis: - Nephrology is following, need outpt HD setup Missed dialysis: counseling done Hypertension: low salt diet, antihypertensives Type 2 diabetes mellitus: ssi, accucheck HIV (human immunodeficiency virus infection): ID following DVT prophylaxis: On heparin 5000 every 12 and GI prophylaxis Disposition: d/c when outpatient hemodialysis is set up by CM Brief History Patient is a 33-year-old man with a history of HIV, hypertension and End-stage renal disease on hemodialysis TTS who moved from [place] to [place] area for 3 weeks. Apparently arranged for hemodialysis as outpatient but unable to go there because they were not properly arranged. Patient comes in from missed hemodialysis. Recent travel from [place] to [place] by a bus. Patient also has a history of HIV but not taking any antiretrovirals Hospitalist Physical Gen: WDWN, NAD, Awake, Alert, Orientated HEENT: NCAT, EOMI, PERRL, OP Clear Neck: supple, no adenopathy, no thyromegaly, no JVD CVS/Heart: RRR, normal S1S2, pulses present bilaterally Chest/Lungs: CTA B, Symmetrical chest expansion, good air entry bilaterally GI/Abdomen: soft, NTND, good bowel sounds, no guarding or rebound /Bladder: no suprapubic tenderness, no CVA or paraspinal tenderness Extermity/Skin: no c/c/e, many tattoos MSK: FROM x 4 Neuro: CN 2-12 grossly intact, no new focal deficits Psych: calm Disposition: DC- TO HOME OR SELFCARE Time spent for discharge: 34 minutes Core Measure Documentation - Palliative Care Palliative Care/ Comfort Measures: Not Applicable - Core Measures Any of the following diagnoses?: none Exam - Constitutional Vitals: Temp Pulse Resp BP Pulse Ox 99.2 F 107 H 18 150/97 96 02/16/19 11:59 02/16/19 11:59 02/16/19 11:59 02/16/19 11:59 02/16/19 11:59 Plan Activity: advance as tolerated Weight Bearing Status: Weight Bear as Tolerated Diet: renal Special Instructions: record daily BP diary Follow up with: [facility] DAVID [Primary Care Provider] - 3-5 Days Prescriptions: Mirtazapine Solutab [Remeron 15mg Solutab] 15 mg PO QHS #30 tab.rapdis hydrALAZINE [Apresoline TAB] 100 mg PO TID #30 tab ISOSORBIDE MONOnitrate [Imdur ER] 30 mg PO DAILY #30 tablet Labetalol [Labetalol 200mg TAB] 200 mg PO BID #60 tablet amLODIPine [Norvasc] 5 mg PO DAILY #30 tablet
[2019-02-16 17:04] LABS: HIV-1 RNA QN PCR <1.30 Log cps/mL; HIV-1 RNA QN PCR <20 Copies/mL
[2019-02-16] MEDS ORDERED: NACL 0.9 (PRIMING MACHINE ONLY DIALYSIS) MC ONE (17:52)
[2019-02-16] MEDS: PROCRIT IV PRN (18:00)
[2019-02-16] MEDS: IMDUR PO SCH (19:27)
[2019-02-16] MEDS: NORVASC PO SCH (19:27)
[2019-02-16] MEDS: REMERON SOLUTAB PO SCH (21:58)
[2019-02-16] MEDS: LANTUS SUB-Q SCH (22:52)
[2019-02-17] MEDS: PERCOCET 5/325 PO PRN (01:27)
[2019-02-17] MEDS: DILAUDID IV PRN ×2 (05:33→09:51)
[2019-02-17] MEDS: HumaLOG SUB-Q SCH (10:05)
[2019-02-17] MEDS: REGLAN PO SCH (10:11)
[2019-02-17] MEDS: APRESOLINE PO SCH (10:11)
[2019-02-17] MEDS: PEPCID PO SCH (10:12)
[2019-02-17] MEDS: IMDUR PO SCH (10:12)
[2019-02-17] MEDS: NORVASC PO SCH (10:13)
[2019-02-17] MEDS: SODIUM CHLORIDE FLUSH SYRINGE 10 ML IV SCH (10:13)
--- NOTE | 2019-02-17 10:22 | Progress Note ---
Assessment and Plan ESRD on hemodialysis: - Nephrology is following, need outpt HD setup Missed dialysis: counseling done Hypertension: low salt diet, antihypertensives Type 2 diabetes mellitus: ssi, accucheck HIV (human immunodeficiency virus infection): ID following DVT prophylaxis: On heparin 5000 every 12 and GI prophylaxis Disposition: d/c when outpatient hemodialysis is set up by CM Brief History Patient is a 33-year-old man with a history of HIV, hypertension and End-stage renal disease on hemodialysis TTS who moved from [place] to [facility] for 3 weeks. Apparently arranged for hemodialysis as outpatient but unable to go there because they were not properly arranged. Patient comes in from missed hemodialysis. Recent travel from [place] to [place] by a bus. Patient al so has a history of HIV but not taking any antiretrovirals Hospitalist Physical Gen: WDWN, NAD, Awake, Alert, Orientated HEENT: NCAT, EOMI, PERRL, OP Clear Neck: supple, no adenopathy, no thyromegaly, no JVD CVS/Heart: RRR, normal S1S2, pulses present bilaterally Chest/Lungs: CTA B, Symmetrical chest expansion, good air entry bilaterally GI/Abdomen: soft, NTND, good bowel sounds, no guarding or rebound /Bladder: no suprapubic tenderness, no CVA or paraspinal tenderness Extermity/Skin: no c/c/e, many tattoos MSK: FROM x 4 Neuro: CN 2-12 grossly intact, no new focal deficits Psych: calm Subjective Date of service: 02/16/19 Principal diagnosis: ESRD Interval history: Patient seen and examined. Medical records and medication list reviewed. No acute event overnight noted by the RN. Patient denies any chest pain or difficulty breathing. Patient is tolerating diet. Discussed plan of care at bedside with patient. Objective - Constitutional Vitals: Vital Signs - 12hr 02/17/19 02/17/19 05:39 10:12 Temperature 98.8 F Pulse Rate 111 H 101 H Respiratory 22 Rate Blood Pressure 161/97 128/75 O2 Sat by Pulse 97 Oximetry - Labs CBC & Chem 7: 02/15/19 04:39 02/15/19 04:39 Labs: Abnormal lab results 02/16/19 02/16/19 02/17/19 Range/Units 11:03 22:33 08:04 POC Glucose 122 H 201 H 122 H (70-105)
[2019-02-17 12:02] VITALS: BP 171/103
[2019-02-17] MEDS: NORMODYNE PO SCH (12:10)
--- NOTE | 2019-02-17 12:49 | Progress Note ---
Assessment and Plan - Patient Problems (1) ESRD (end stage renal disease) Current Visit: Yes Status: Acute Plan to address problem: Pt accepted at [facility], on TTS schedule. stable for discharge from renal stand point (2) Hypertensive chronic kidney disease with stage 5 chronic kidney disease or end stage renal disease Current Visit: Yes Status: Acute Plan to address problem: resume home BP meds. Will monitor BP and adjust UF accordingly (3) HIV (human immunodeficiency virus infection) Current Visit: Yes Status: Chronic Qualifiers: HIV symptom status: asymptomatic Qualified Code(s): Z21 - Asymptomatic human immunodeficiency virus [HIV] infection status Plan to address problem: pt needs outpatient ID f/u Subjective Date of service: 02/17/19 Principal diagnosis: ESRD Interval history: Patient awake, alert, in NAD, denies SOB, CP, palpitations, fever, chills, n/v/d Objective - Vital Signs Vital signs: Vital Signs - 12hr 02/17/19 02/17/19 02/17/19 05:39 10:12 10:15 Temperature 98.8 F Pulse Rate 111 H 101 H Respiratory 22 Rate Blood Pressure 161/97 128/75 128/75 O2 Sat by Pulse 97 Oximetry 02/17/19 02/17/19 02/17/19 12:00 12:01 12:02 Temperature 98.4 F Pulse Rate 107 H 115 H Respiratory 16 16 Rate Blood Pressure 171/103 O2 Sat by Pulse 95 96 Oximetry - General Appearance General appearance: well-developed, well-nourished, appears stated age EENT: ATNC, PERRL, mucous membranes moist Neck: no JVD Respiratory: Present: Clear to Ascultation Cardiology: regular, S1S2 Gastrointestinal: normoactive bowel sounds Integumentary: no rash, other Neurologic: no focal deficit, alert and oriented x3, strength 5/5, CN 3-12 intact Psychiatric: mood/affect appropriate, cooperative - Lab 02/15/19 04:39 02/15/19 04:39 Most recent lab results Calcium 7.9 mg/dL (8.4-10.2) L 02/15/19 04:39 Medications & Allergies - Medications Allergies/Adverse Reactions: Allergies Penicillins Allergy (Verified 02/11/19 14:13) Hives Home Medications: Home Medications Medication Instructions Recorded Confirmed Last Taken Type ISOSORBIDE MONOnitrate [Imdur ER] 30 mg PO DAILY #30 tablet 02/16/19 Unknown Rx Labetalol [Labetalol 200mg TAB] 200 mg PO BID #60 tablet 02/16/19 Unknown Rx Mirtazapine Solutab [Remeron 15mg 15 mg PO QHS #30 tab.rapdis 02/16/19 Unknown Rx Solutab] amLODIPine [Norvasc] 5 mg PO DAILY #30 tablet 02/16/19 Unknown Rx hydrALAZINE [Apresoline TAB] 100 mg PO TID #30 tab 02/16/19 Unknown Rx Ibuprofen [Motrin] 800 mg PO Q8HR PRN #10 tablet 02/17/19 Unknown Rx Active Medications: Generic Name Dose Route Start Last Admin Trade Name Freq PRN Reason Stop Dose Admin Acetaminophen 650 mg 02/11/19 22:09 Tylenol PO Q4H PRN Pain MILD(1-3)/Fever >100.5/CHOUDHRAY Amlodipine Besylate 5 mg 02/12/19 10:00 02/17/19 10:13 Norvasc PO 5 mg DAILY SHIRA Administration Epoetin Vj 10,000 unit 02/11/19 14:07 02/16/19 18:00 Procrit IV 10,000 unit TORY PRN Administration hemodialysis Famotidine 10 mg 02/12/19 10:00 02/17/19 10:12 Pepcid PO 10 mg BID SHIRA Administration Hydralazine HCl 100 mg 02/12/19 08:00 02/17/19 10:11 Apresoline PO 100 mg TID SHIRA Administration Hydralazine HCl 10 mg 02/16/19 05:33 02/16/19 05:45 Apresoline IV 10 mg Q4HR PRN Administration Blood Pressure Hydromorphone HCl 0.5 mg 02/11/19 22:09 02/17/19 09:51 Dilaudid IV 0.5 mg Q3H PRN Administration Pain , Severe (7-10) Sodium Chloride 100 mls @ 999 mls/hr 02/13/19 09:00 Nacl 0.9% IV TORY PRN Hypotension Insulin Glargine 15 units 02/11/19 23:00 02/16/19 22:52 Lantus SUB-Q 15 units QHS SHIRA Administration Insulin Human Lispro 0 unit 02/12/19 07:30 02/17/19 10:05 Humalog SUB-Q Not Given ACHS SHIRA Protocol Isosorbide Mononitrate 30 mg 02/12/19 10:00 02/17/19 10:12 Imdur PO 30 mg DAILY SHIRA Administration Labetalol HCl 200 mg 02/11/19 23:00 02/17/19 12:10 Normodyne PO 200 mg BID SHIRA Administration Metoclopramide HCl 10 mg 02/13/19 22:00 02/17/19 10:11 Reglan PO 10 mg ACHS SHIRA Administration Mirtazapine 15 mg 02/11/19 23:00 02/16/19 21:58 Remeron Solutab PO 15 mg QHS SHIRA Administration Ondansetron HCl 4 mg 02/11/19 22:09 02/13/19 21:12 Zofran IV 4 mg Q8H PRN Administration Nausea And Vomiting Oxycodone/Acetaminophen 1 tab 02/11/19 22:09 02/17/19 01:27 Percocet 5/325 PO 1 tab Q6H PRN Administration Pain, Moderate (4-6) Sodium Chloride 10 ml 02/11/19 23:00 02/17/19 10:13 Sodium Chloride Flush Syringe 10 Ml IV 10 ml BID SHIRA Administration Sodium Chloride 10 ml 02/11/19 22:09 Sodium Chloride Flush Syringe 10 Ml IV PRN PRN LINE FLUSH
== END 2019-02-17 13:12 | disposition home or self-care (01) | DRG 640 ==
LOC: ED 10:53 → 3A 13:25 → OBSVTOIN 02-14 11:34
PROVIDERS: ADMIT Internal Medicine; ATTEND Internal Medicine
PROC: 5A1D70Z Performance of Urinary Filtration, Intermittent, Less than 6 Hours Per Day (ICD-10-PCS; 2019-02-11)
PROC: 5A1D70Z Performance of Urinary Filtration, Intermittent, Less than 6 Hours Per Day (ICD-10-PCS; principal; 2019-02-14)
PROC: 5A1D70Z Performance of Urinary Filtration, Intermittent, Less than 6 Hours Per Day (ICD-10-PCS; 2019-02-16)
DX: E87.70 Fluid overload, unspecified (principal); N18.6 End stage renal disease; I12.0 Hypertensive chronic kidney disease with stage 5 chronic kidney disease or end stage renal disease; Z21 Asymptomatic human immunodeficiency virus [HIV] infection status; E11.22 Type 2 diabetes mellitus with diabetic chronic kidney disease; Z79.899 Other long term (current) drug therapy; Z99.2 Dependence on renal dialysis; Z88.0 Allergy status to penicillin; Z90.49 Acquired absence of other specified parts of digestive tract
CPT/HCPCS: 36415; 71046; 80048; 80053; 80074; 82024; 82962; 83036; 85025; 85027; 86592; 87536; 96374; G0378; J0360; J0885; J1170; J1815; J2405; J7030

== ENCOUNTER 2019-02-22 02:16 | Inpatient (IN) | payer OTHER ==
[2019-02-22] MEDS ORDERED: PEPCID IV ONE (02:37)
[2019-02-22] MEDS ORDERED: ZOFRAN IV ONE (02:37)
[2019-02-22] MEDS ORDERED: PROTONIX IV ONE (02:38)
[2019-02-22] MEDS ORDERED: DILAUDID IV ONE (02:43)
[2019-02-22] MEDS ORDERED: DILAUDID ONE (02:46)
[2019-02-22 03:11] LABS: Basophils # (Auto) 0.1 K/mm3 (0.0-0.1); Basophils % (Auto) 0.9 % (0.0-1.8); Eosinophils % (Auto) 0.4 % (0.0-4.3); Hematocrit 30.5 % (35.5-45.6); Hemoglobin 10.1 gm/dl (11.8-15.2); Lymphocytes # (Auto) 1.4 K/mm3 (1.2-5.4); Lymphocytes % (Auto) 16.6 % (13.4-35.0); Mean Corpuscular HGB Conc 33 % (32-34); Mean Corpuscular Volume 90 fl (84-94); Monocytes # (Auto) 0.3 K/mm3 (0.0-0.8); Monocytes % (Auto) 3.6 % (0.0-7.3); Platelet Count 320 K/mm3 (140-440); Red Blood Count 3.41 M/mm3 (3.65-5.03); Red Cell Distribution Width 14.9 % (13.2-15.2)
[2019-02-22 03:22] LABS: INR 0.98 (0.87-1.13)
[2019-02-22 03:23] LABS: Partial Thromboplastin Time 29.2 Sec. (24.2-36.6)
[2019-02-22 03:33] LABS: Albumin 3.2 g/dL (3.9-5); Calcium 8.9 mg/dL (8.4-10.2)
--- NOTE | 2019-02-22 04:03 | Cat Scan Report ---
CT abdomen pelvis wo con INDICATION / CLINICAL INFORMATION: n,v abd pain. TECHNIQUE: All CT scans at this location are performed using CT dose reduction for ALARA by means of automated e xposure control. COMPARISON: None available. FINDINGS: No free fluid is seen in the abdomen. The gallbladder has been surgically removed. There are a few mi ldly dilated fluid-filled loops of proximal small bowel with normal bowel distally. The liver, spleen , kidneys, pancreas, adrenal glands and great vessels are normal. In the pelvis, no free fluid is seen. The bladder wall is mildly thickened. Changes of diverticulosis are present. The appendix is normal. IMPRESSION: 1. There are a few mildly dilated fluid-filled loops of small bowel present that could represent mild enteritis 2. Bladder wall thickening 3. Diverticulosis 4. Cholecystectomy Signer Name: Sanya Wynne MD FACR Signed: 02/22/2019 3:58 AM Workstation Name: [id number]
--- NOTE | 2019-02-22 04:35 | Emergency Department Report ---
ED Abdominal Pain HPI - General Chief Complaint: GI Bleed Stated Complaint: VOMITING BLOOD Time Seen by Provider: 02/22/19 02:36 Source: patient, family Mode of arrival: Wheelchair Limitations: No Limitations - History of Present Illness Initial Comments: 33-year-old male with a past medical history of end-stage renal disease on dialysis, hypertension, HIV, diabetes, and gastroparesis with previous cholecystectomy presents to the hospital complaints of abdominal pain, nausea, vomiting, and by mouth intolerance since yesterday. This evening patient began to have bloody vomitus that was a combination of bright red and coffee-ground. He also was complaining of generalized throbbing abdominal pain and back pain. Generalized weakness also reported. The patient was being transferred from the wheelchair to the bed he became unresponsive. Patient was responsive to sternal rub and woke up hyperventilating complaining of generalized abdominal pain and requesting pain medication. Patient's family member at the bedside. She states that patient has been compliant with his dialysis which was last Thursday and is supposed to switch to a Thursday, , Thursday schedule this week. They have recently moved to the area and was just discharged from [facility] on the . She reports that in [place] patient was chronic narcotic medication for back pain and possibly abdominal pain. She states that during hospitalization he received narcotics but was not discharged on any narcotic medications. She (ts concern for narcotic dependence and withdrawal. He is not currently on any HIV meds and is suppose to f/u with ID. Severity scale (0 -10): 10 - Related Data Previous Rx's Medication Instructions Recorded Last Taken Type ISOSORBIDE MONOnitrate [Imdur ER] 30 mg PO DAILY #30 tablet 02/16/19 Unknown Rx Labetalol [Labetalol 200mg TAB] 200 mg PO BID #60 tablet 02/16/19 Unknown Rx Mirtazapine Solutab [Remeron 15mg 15 mg PO QHS #30 tab.rapdis 02/16/19 Unknown Rx Solutab] amLODIPine [Norvasc] 5 mg PO DAILY #30 tablet 02/16/19 Unknown Rx hydrALAZINE [Apresoline TAB] 100 mg PO TID #30 tab 02/16/19 Unknown Rx Ibuprofen [Motrin] 800 mg PO Q8HR PRN #10 tablet 02/17/19 Unknown Rx Allergies Allergy/AdvReac Type Severity Reaction Status Date / Time Penicillins Allergy Hives Verified 02/11/19 14:13 ED Review of Systems ROS: Stated complaint: VOMITING BLOOD Other details as noted in HPI Comment: Unobtainable due to pts medical conditions (due to pt distress, hyperventilating) ED Past Medical Hx - Past Medical History Previous Medical History?: Yes Hx Hypertension: Yes Hx Diabetes: Yes Hx Renal Disease: Yes (Tue, thurs, Sat) Hx HIV: Yes Additional medical history: HIV. gastroparesis - Surgical History Past Surgical History?: Yes Hx Cholecystectomy: Yes Additional Surgical History: PORT IN CHEST - Social History Smoking Status: Never Smoker Substance Use Type: None - Medications Home Medications: Home Medications Medication Instructions Recorded Confirmed Last Taken Type ISOSORBIDE MONOnitrate [Imdur ER] 30 mg PO DAILY #30 tablet 02/16/19 Unknown Rx Labetalol [Labetalol 200mg TAB] 200 mg PO BID #60 tablet 02/16/19 Unknown Rx Mirtazapine Solutab [Remeron 15mg 15 mg PO QHS #30 tab.rapdis 02/16/19 Unknown Rx Solutab] amLODIPine [Norvasc] 5 mg PO DAILY #30 tablet 02/16/19 Unknown Rx hydrALAZINE [Apresoline TAB] 100 mg PO TID #30 tab 02/16/19 Unknown Rx Ibuprofen [Motrin] 800 mg PO Q8HR PRN #10 tablet 02/17/19 Unknown Rx ED Physical Exam - General Limitations: No Limitations - Other Other exam information: General: Stress secondary to pain Head exam: Atraumatic, normocephalic Eyes exam: Normal appearance, pupils equal reactive to light, extraocular movements intact ENT: Moist mucous membrane, normal oropharynx Neck exam: Normal inspection, full range of motion, no meningismus nontender Respiratory exam: Clear to auscultation bilateral, no wheezes, rales, crackles. Right chest wall dialysis cath Cardiovascular: Tachycardic regular rhythm Abdomen: Soft, nondistended, generalized abdominal tenderness, with normal bowel sounds, no rebound, or guarding Extremity: Full range of motion normal inspection no deformity Back: Normal Inspection, full range of motion, no tenderness Neurologic: Decreased level of responsiveness, Requesting pain medication Psychiatric: normal affect, normal mood Skin: Warm, dry, intact ED Course Vital Signs 02/22/19 02/22/19 02:16 04:16 Temperature 98.3 F Pulse Rate 133 H 108 H Respiratory 20 13 Rate Blood Pressure 217/140 132/76 O2 Sat by Pulse 99 97 Oximetry ED Medical Decision Making - Lab Data Result diagrams: 02/22/19 02:58 02/22/19 02:58 Lab Results 02/22/19 02/22/19 02/22/19 Range/Units 02:58 02:58 02:58 WBC 8.5 (4.5-11.0) K/mm3 RBC 3.41 L (3.65-5.03) M/mm3 Hgb 10.1 L (11.8-15.2) gm/dl Hct 30.5 L (35.5-45.6) % MCV 90 (84-94) fl MCH 30 (28-32) pg MCHC 33 (32-34) % RDW 14.9 (13.2-15.2) % Plt Count 320 (140-440) K/mm3 Lymph % (Auto) 16.6 (13.4-35.0) % Island % (Auto) 3.6 (0.0-7.3) % Eos % (Auto) 0.4 (0.0-4.3) % Baso % (Auto) 0.9 (0.0-1.8) % Lymph # 1.4 (1.2-5.4) K/mm3 Island # 0.3 (0.0-0.8) K/mm3 Eos # 0.0 (0.0-0.4) K/mm3 Baso # 0.1 (0.0-0.1) K/mm3 Seg Neutrophils % 78.5 H (40.0-70.0) % Seg Neutrophils # 6.6 (1.8-7.7) K/mm3 PT 12.7 (12.2-14.9) Sec. INR 0.98 (0.87-1.13) APTT 29.2 (24.2-36.6) Sec. Sodium 138 (137-145) mmol/L Potassium 3.4 L (3.6-5.0) mmol/L Chloride 99.2 (98-107) mmol/L Carbon Dioxide 22 (22-30) mmol/L Anion Gap 20 mmol/L BUN 27 H (9-20) mg/dL Creatinine 3.8 H (0.8-1.5) mg/dL Estimated GFR 23 ml/min BUN/Creatinine Ratio 7 % Glucose 220 H (75-100) mg/dL Calcium 8.9 (8.4-10.2) mg/dL Total Bilirubin 0.90 (0.1-1.2) mg/dL AST 21 (5-40) units/L ALT 15 (7-56) units/L Alkaline Phosphatase 70 (35-129) units/L Troponin T 0.077 H (0.00-0.029) ng/mL Total Protein 7.5 (6.3-8.2) g/dL Albumin 3.2 L (3.9-5) g/dL Albumin/Globulin Ratio 0.7 % Triglycerides 155 H (2-149) mg/dL LDL Cholesterol Direct 70 (50-130) mg/dL HDL Cholesterol 40 (40-59) mg/dL Lipase 34 (13-60) units/L - EKG Data -: EKG Interpreted by Sc EKG shows normal: sinus rhythm, axis (qrs 32), intervals (qtc 500), QRS complexes (qrsd 82), ST-T waves (no stemi) Rate: tachycardia (105) - Radiology Data Radiology results: report reviewed CT abdomen pelvis wo con INDICATION / CLINICAL INFORMATION: n,v abd pain. TECHNIQUE: All CT scans at this location are performed using CT dose reduction for ALARA by means of automated exposure control. COMPARISON: None available. FINDINGS: No free fluid is seen in the abdomen. The gallbladder has been surgically removed. There are a few mildly dilated fluid-filled loops of proximal small bowel with normal bowel distally. The liver, spleen, kidneys, pancreas, adrenal glands and great vessels are normal. In the pelvis, no free fluid is seen. The bladder wall is mildly thickened. Changes of diverticulosis are present. The appendix is normal. IMPRESSION: 1. There are a few mildly dilated fluid-filled loops of small bowel present that could represent mild enteritis 2. Bladder wall thickening 3. Diverticulosis 4. Cholecystectomy - Medical Decision Making CT without signs of obstruction H&H actually higher than recent discharge hemoglobin. No signs of active bleeding in the ED Patient's vital signs improved with pain medication. Received Zofran and Protonix. GI consult ordered Hospitalist to admit - Differential Diagnosis gerd, gastroparesis, dehydration, anemia, narotic dependence Critical Care Time: No Critical care attestation.: If time is entered above; I have spent that time in minutes in the direct care of this critically ill patient, excluding procedure time. ED Disposition Clinical Impression: Gastroparesis, Hematemesis, HTN (hypertension), Chronic pain, HIV (human immunodeficiency virus infection), ESRD on dialysis Disposition: OP ADMIT IP TO THIS HOSP Is pt being admited?: Yes Condition: Stable Time of Disposition: 04:47 (Dr Monique/hosp)
[2019-02-22] MEDS ORDERED: TYLENOL PO PRN (05:47)
[2019-02-22] MEDS ORDERED: SODIUM CHLORIDE FLUSH SYRINGE 10 ML IV PRN (05:47)
[2019-02-22] MEDS ORDERED: PHENERGAN PR PRN (05:47)
--- NOTE | 2019-02-22 05:52 | History and Physical Report ---
History of Present Illness Date of examination: 02/22/19 History of present illness: 52-year-old man with a history of hypertension, diabetes,ESRD comes to the emergency room with complaints of nausea, vomiting, unable to tolerate oral intake. Mom at bedside states he had 3 episodes of vomiting blood. Complain of abdominal pain, in the LLQ, sharp,constant, intensity 7/10, radiating to the back, he cannot identify exacerbating or relieving factors. He had a brief syncopal episode when transferred from wheel chair to bed Review Of Systems: Constitutional: no weight loss, fever, chills Ears, eyes, nose, mouth and throat: no nasal congestion, no nasal discharge, no sinus pressure, blurry vision, diplopia Neck: No neck pain or rigidity. Cardiovascular: No palpitations, chest pain Respiratory: No shortness of breath, cough Gastrointestinal: No hematochezia Genitourinary : no dysuria, frequency , hematuria Musculoskeletal: no muscle ache Integumentary: no rash, no pruritis Neurological: no parathesias, focal weakness Endocrine: no cold or heat intolerance, no polyuria or polydipsia Hematologic/Lymphatic: no easy bruising, no easy bleeding, no gland swelling Allergic/Immunologic: no urticaria, no angioedema. PAST MEDICAL HISTORY:hypertension, diabetes, ESRD PAST SURGICAL HISTORY:Cholecystectomy, port, back FAMILY HISTORY:hypertension, diabetes SOCIAL HISTORY: Denies tobacco, drugs, social alcohol Medications and Allergies Allergies Allergy/AdvReac Type Severity Reaction Status Date / Time Penicillins Allergy Hives Verified 02/11/19 14:13 Home Medications Medication Instructions Recorded Confirmed Last Taken Type ISOSORBIDE MONOnitrate [Imdur ER] 30 mg PO DAILY #30 tablet 02/16/19 Unknown Rx Labetalol [Labetalol 200mg TAB] 200 mg PO BID #60 tablet 02/16/19 Unknown Rx Mirtazapine Solutab [Remeron 15mg 15 mg PO QHS #30 tab.rapdis 02/16/19 Unknown Rx Solutab] amLODIPine [Norvasc] 5 mg PO DAILY #30 tablet 02/16/19 Unknown Rx hydrALAZINE [Apresoline TAB] 100 mg PO TID #30 tab 02/16/19 Unknown Rx Ibuprofen [Motrin] 800 mg PO Q8HR PRN #10 tablet 02/17/19 Unknown Rx Active Meds: Active Medications Acetaminophen (Tylenol) 650 mg PO Q4H PRN PRN Reason: Pain MILD(1-3)/Fever >100.5/CHOUDHARY Metoclopramide HCl (Reglan) 10 mg IV Q6H PRN PRN Reason: Nausea And Vomiting Morphine Sulfate (Morphine) 2 mg IV Q4H PRN PRN Reason: Pain, Moderate (4-6) Ondansetron HCl (Zofran) 4 mg IV Q4H PRN PRN Reason: Nausea And Vomiting Promethazine HCl (Phenergan) 25 mg ME Q6H PRN PRN Reason: N/V IF NPO AND NO IV ACCESS Sodium Chloride (Sodium Chloride Flush Syringe 10 Ml) 10 ml IV BID SHIRA Sodium Chloride (Sodium Chloride Flush Syringe 10 Ml) 10 ml IV PRN PRN PRN Reason: LINE FLUSH Exam - Physical Exam Narrative exam: General Apperance: The patient sitting in bed no acute distress, intubated HEENT: Normocephalic, atraumatic. Pupils equally round and reactive to light, unable to do extraocular movement intact, and no sclericterus or JVD or thyromegaly or nodule. Neck supple, no carotid bruit, mucous membranes moist, no exudate or erythema Heart: S1-S2, regular is rhythm Lungs: Clear to auscultation bilaterally, breathing comfortable Abdomen: Positive bowel sounds, soft, nontender, nondistended, no organomegaly Extremities: No edema cyanosis clubbing Skin: no rash, nodule, warm and dry Neuro:CN 2 -12 intact, motry/sensory intact, speech is fluent - Constitutional Vitals: Temp Pulse Resp BP Pulse Ox 98.3 F 108 H 13 132/76 97 02/22/19 02:16 02/22/19 04:16 02/22/19 04:16 02/22/19 04:16 02/22/19 04:16 Results - Labs CBC & Chem 7: 02/22/19 02:58 02/22/19 02:58 Labs: Abnormal lab results 02/22/19 02/22/19 Range/Units 02:58 02:58 RBC 3.41 L (3.65-5.03) M/mm3 Hgb 10.1 L (11.8-15.2) gm/dl Hct 30.5 L (35.5-45.6) % Seg Neutrophils % 78.5 H (40.0-70.0) % Potassium 3.4 L (3.6-5.0) mmol/L BUN 27 H (9-20) mg/dL Creatinine 3.8 H (0.8-1.5) mg/dL Glucose 220 H (75-100) mg/dL Troponin T 0.077 H (0.00-0.029) ng/mL Albumin 3.2 L (3.9-5) g/dL Triglycerides 155 H (2-149) mg/dL - Imaging and Cardiology CT scan - abdomen: report reviewed CT scan - pelvis: report reviewed Assessment and Plan Assessment GI Bleed Gastroparesis, acute on chronic Syncope, most likely vagal Hypertension Diabetes ESRD on HD Chronic pain Plan Admit to medicine Start protonix, consult GI Check fingersticks, IV hydralazine for blood pressure Check cardiac enzymes, d-dimer, replete potassium DVT prophylaxis, consult renal
[2019-02-22 05:54] LABS: Chol/HDL Ratio 3.2 %
[2019-02-22] MEDS ORDERED: KCL 10MEQ/100ML 10 MEQ/100 ML BAG IV ONE (06:08)
[2019-02-22] MEDS: MORPHINE IV PRN ×3 (06:12→22:31)
[2019-02-22] MEDS: APRESOLINE IV PRN (06:21)
[2019-02-22 07:37] LABS: Creatine Kinase MB 3.2 ng/mL (0.0-4.0)
[2019-02-22] MEDS ORDERED: REGLAN ONE (07:53)
[2019-02-22] MEDS: REGLAN IV PRN ×2 (07:57→14:46)
[2019-02-22] MEDS ORDERED: NACL 0.9% 100 ML IV PRN (07:58)
--- NOTE | 2019-02-22 08:21 | Consultation ---
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 Symptoms have been progressing over the past week for which she is coming into the emergency department. He is in the process of moving from [place] to [place]. He was recently at our institution here at [facility]. Upon discharge was set up to go to hemodialysis at our outpatient [facility] dialysis unit on his Thursday schedule. His last hemodialysis session was Thursday. He dialyzes via a right IJ PermCath. He has been on dialysis since December of this year. Past History Past Medical History: dialysis, HIV/AIDS, hypertension Past Surgical History: No surgical history Family history: no significant family history Medications and Allergies Allergies Allergy/AdvReac Type Severity Reaction Status Date / Time Penicillins Allergy Hives Verified 02/11/19 14:13 Home Medications Medication Instructions Recorded Confirmed Last Taken Type ISOSORBIDE MONOnitrate [Imdur ER] 30 mg PO DAILY #30 tablet 02/16/19 Unknown Rx Labetalol [Labetalol 200mg TAB] 200 mg PO BID #60 tablet 02/16/19 Unknown Rx Mirtazapine Solutab [Remeron 15mg 15 mg PO QHS #30 tab.rapdis 02/16/19 Unknown Rx Solutab] amLODIPine [Norvasc] 5 mg PO DAILY #30 tablet 02/16/19 Unknown Rx hydrALAZINE [Apresoline TAB] 100 mg PO TID #30 tab 02/16/19 Unknown Rx Ibuprofen [Motrin] 800 mg PO Q8HR PRN #10 tablet 02/17/19 Unknown Rx Active Meds: Active Medications Acetaminophen (Tylenol) 650 mg PO Q4H PRN PRN Reason: Pain MILD(1-3)/Fever >100.5/CHOUDHARY Epoetin Jv (Procrit) 10,000 unit IV TORY PRN PRN Reason: hemodialysis Hydralazine HCl (Apresoline) 5 mg IV Q6H PRN PRN Reason: Hypertension Last Admin: 02/22/19 06:21 Dose: 5 mg Documented by: Sodium Chloride (Nacl 0.9%) 100 mls @ 999 mls/hr IV TORY PRN PRN Reason: Hypotension Metoclopramide HCl (Reglan) 5 mg IV Q6H PRN PRN Reason: Nausea And Vomiting Last Admin: 02/22/19 07:57 Dose: 5 mg Documented by: Morphine Sulfate (Morphine) 2 mg IV Q4H PRN PRN Reason: Pain, Moderate (4-6) Last Admin: 02/22/19 06:12 Dose: 2 mg Documented by: Ondansetron HCl (Zofran) 4 mg IV Q4H PRN PRN Reason: Nausea And Vomiting Pantoprazole Sodium (Protonix) 40 mg IV BID SHIRA Promethazine HCl (Phenergan) 25 mg UT Q6H PRN PRN Reason: N/V IF NPO AND NO IV ACCESS Last Admin: 02/22/19 06:12 Dose: 25 mg Documented by: Sodium Chloride (Sodium Chloride Flush Syringe 10 Ml) 10 ml IV BID SHIRA Sodium Chloride (Sodium Chloride Flush Syringe 10 Ml) 10 ml IV PRN PRN PRN Reason: LINE FLUSH Review of Systems All systems: negative Constitutional: fatigue, weakness, poor appetite Gastrointestinal: abdominal pain, nausea, vomiting Exam - Vital Signs Vital signs: Vital Signs Temp Pulse Resp BP Pulse Ox 98.3 F 133 H 20 217/140 99 02/22/19 02:16 02/22/19 02:16 02/22/19 02:16 02/22/19 02:16 02/22/19 02:16 - General Appearance General appearance: well-developed, appears stated age, obese EENT: ATNC, PERRL Neck: Present: neck supple, trachea midline Respiratory: Clear to Ascultation, Normal Exam Heart: regular, S1S2 Gastrointestinal: Present: normal, normoactive bowel sounds, tenderness, obese Integumentary: no rash, warm and dry Neurologic: no focal deficit, no asterixis, alert and oriented x3 Musculoskeletal: Present: other (negative edema) Psychiatric: mood/affect appropriate, cooperative Results - Lab Results 02/22/19 02:58 02/22/19 02:58 Most recent lab results Calcium 8.9 mg/dL (8.4-10.2) 02/22/19 02:58 Assessment and Plan - Patient Problems (1) ESRD (end stage renal disease) Current Visit: No Status: Chronic Plan to address problem: Will continue him on a Thursday//Thursday inpatient hemodialysis schedule. Hemodialysis orders placed at this time. He will be dialyzed today. (2) Hematemesis Current Visit: Yes Status: Acute Plan to address problem: Patient is pending a gastroenterology evaluation at this time. Overall hemoglobin and hematocrit levels are stable. He has not required any blood transfusion during this hospitalization. He is overall hemodynamically o therwise stable. We'll continue to monitor closely. Further recommendations per gastroenterology consultation. (3) Hypertensive chronic kidney disease with stage 5 chronic kidney disease or end stage renal disease Current Visit: No Status: Chronic Plan to address problem: We will monitor closely on his current regimen. We'll also challenge with ultrafiltration during hemodialysis session. Once he is able to tolerate oral intake would favor that he restarts his entire home regimen and we will titrate as necessary.. (4) HIV (human immunodeficiency virus infection) Current Visit: Yes Status: Chronic Qualifiers: Plan to address problem: Management per infectious disease attending.
[2019-02-22] MEDS ORDERED: CATAPRES PO STA (09:08)
[2019-02-22] MEDS ORDERED: NACL 0.9 (PRIMING MACHINE ONLY DIALYSIS) MC ONE ×2 (09:21→22:13)
[2019-02-22] MEDS: PROCRIT IV PRN (09:29)
[2019-02-22 09:51] LABS: Hematocrit 30.2 % (35.5-45.6); Hemoglobin 10.4 gm/dl (11.8-15.2)
[2019-02-22] MEDS: ZOFRAN IV PRN ×2 (10:02→22:33)
[2019-02-22] MEDS: PROTONIX IV SCH ×3 (12:19→22:33)
[2019-02-22] MEDS: SODIUM CHLORIDE FLUSH SYRINGE 10 ML IV SCH ×2 (12:19→14:46)
--- NOTE | 2019-02-22 14:17 | Event Note ---
Patient with h/o ESRD on HD admitted today for GI bleed and hypertensive emergency. We'll continue monitor H&H. Nephrology and GI following
--- NOTE | 2019-02-22 17:28 | Consultation ---
History of Present Illness - Reason for Consult Consult date: 02/22/19 GI bleed Requesting physician: DAXA DAVILA - History of Present Illness Mr. Clement is a 33-year-old man who is in the process of transitioning from [place] to [place]. He has a history of diabetes since 2006 that has been poorly controlled. It is complicated by end-stage renal disease with dialysis starting in December 2018. He also has a history of HIV diagnosed in 2016, and states that he was on anti-retroviral therapy until December of this year when he had a prolonged hospitalization at [facility] in [place]. There are, the HIV meds were stopped, he had an endoscopy and was told he had ulcers but no medications were given, and he was started on hemodialysis. He had been hospitalized here from February 14 through February 17 for missed dialysis and to establish dialysis. He was then at home and doing well until the morning of February 20, when he developed onset of diarrhea with loose liquid yellow, yellow orange stool. Yesterday, he developed nausea and vomiting repeatedly. At approximately 4 PM yesterday, he ate watermelon. He then commenced to vomit once again in noted that initially, the watermelon came up. Then he stated that he was vomiting blood subsequently which then turned into brownish material. He therefore presented to the emergency room. He is currently doing well. He did have a bout of vomiting earlier today at dialysis but does not describe any blood. He had abdominal discomfort with these symptoms. There is no fevers chills or sweats. There's been no hematochezia or melena. Past History Past Medical History: dialysis, HIV/AIDS, hypertension Past Surgical History: cholecystectomy, Other (R IJ catheter for dialysis, Laminectomy in 2017 due to infection related to skin abscesses). denies: No surgical history Social history: denies: smoking, alcohol abuse Family history: no significant family history Medications and Allergies Allergies Allergy/AdvReac Type Severity Reaction Status Date / Time Penicillins Allergy Hives Verified 02/11/19 14:13 Home Medications Medication Instructions Recorded Confirmed Last Taken Type ISOSORBIDE MONOnitrate [Imdur ER] 30 mg PO DAILY #30 tablet 02/16/19 Unknown Rx Labetalol [Labetalol 200mg TAB] 200 mg PO BID #60 tablet 02/16/19 Unknown Rx Mirtazapine Solutab [Remeron 15mg 15 mg PO QHS #30 tab.rapdis 02/16/19 Unknown Rx Solutab] amLODIPine [Norvasc] 5 mg PO DAILY #30 tablet 02/16/19 Unknown Rx hydrALAZINE [Apresoline TAB] 100 mg PO TID #30 tab 02/16/19 Unknown Rx Ibuprofen [Motrin] 800 mg PO Q8HR PRN #10 tablet 02/17/19 Unknown Rx Active Meds: Active Medications Acetaminophen (Tylenol) 650 mg PO Q4H PRN PRN Reason: Pain MILD(1-3)/Fever >100.5/CHOUDHARY Epoetin Jv (Procrit) 10,000 unit IV TORY PRN PRN Reason: hemodialysis Hydralazine HCl (Apresoline) 5 mg IV Q6H PRN PRN Reason: Hypertension Last Admin: 02/22/19 06:21 Dose: 5 mg Documented by: Sodium Chloride (Nacl 0.9%) 100 mls @ 999 mls/hr IV TORY PRN PRN Reason: Hypotension Metoclopramide HCl (Reglan) 5 mg IV Q6H PRN PRN Reason: Nausea And Vomiting Last Admin: 02/22/19 14:46 Dose: 5 mg Documented by: Morphine Sulfate (Morphine) 2 mg IV Q4H PRN PRN Reason: Pain, Moderate (4-6) Last Admin: 02/22/19 14:47 Dose: 2 mg Documented by: Ondansetron HCl (Zofran) 4 mg IV Q4H PRN PRN Reason: Nausea And Vomiting Last Admin: 02/22/19 10:02 Dose: 4 mg Documented by: Pantoprazole Sodium (Protonix) 40 mg IV BID [facility] Last Admin: 02/22/19 14:46 Dose: 40 mg Documented by: Promethazine HCl (Phenergan) 25 mg [place] Q6H PRN PRN Reason: N/V IF NPO AND NO IV ACCESS Last Admin: 02/22/19 06:12 Dose: 25 mg Documented by: Sodium Chloride (Sodium Chloride Flush Syringe 10 Ml) 10 ml IV BID [facility] Last Admin: 02/22/19 14:46 Dose: 10 ml Documented by: Sodium Chloride (Sodium Chloride Flush Syringe 10 Ml) 10 ml IV PRN PRN PRN Reason: LINE FLUSH Review of Systems ROS unobtainable: due to mental status All systems: negative (as noted in HPI) Exam - Constitutional Vitals: Temp Pulse Resp BP Pulse Ox 98.3 F 100 H 18 92/56 96 02/22/19 16:31 02/22/19 16:31 02/22/19 16:31 02/22/19 16:31 02/22/19 16:31 General appearance: Present: no acute distress, obese, other (tattooed, and with skin scars) - EENT Eyes: Present: PERRL, EOM intact ENT: hearing intact - Respiratory Respiratory effort: normal Respiratory: bilateral: CTA (anteriorly) - Cardiovascular Rhythm: regular Heart Sounds: Present: S1 & S2 - Abdominal General gastrointestinal: Present: soft, non-tender, normal bowel sounds Results - Labs CBC & Chem 7: 02/22/19 09:43 02/22/19 02:58 Labs: Abnormal lab results 02/22/19 02/22/19 02/22/19 Range/Units 02:36 02:58 02:58 RBC 3.41 L (3.65-5.03) M/mm3 Hgb 10.1 L (11.8-15.2) gm/dl Hct 30.5 L (35.5-45.6) % Seg Neutrophils % 78.5 H (40.0-70.0) % Potassium 3.4 L (3.6-5.0) mmol/L BUN 27 H (9-20) mg/dL Creatinine 3.8 H (0.8-1.5) mg/dL Glucose 220 H (75-100) mg/dL POC Glucose 231 H (70-105) Total Creatine Kinase (55-170) units/L Troponin T 0.077 H (0.00-0.029) ng/mL Albumin 3.2 L (3.9-5) g/dL Triglycerides 155 H (2-149) mg/dL 02/22/19 02/22/19 02/22/19 Range/Units 07:02 09:43 11:50 RBC (3.65-5.03) M/mm3 Hgb 10.4 L (11.8-15.2) gm/dl Hct 30.2 L (35.5-45.6) % Seg Neutrophils % (40.0-70.0) % Potassium (3.6-5.0) mmol/L BUN (9-20) mg/dL Creatinine (0.8-1.5) mg/dL Glucose (75-100) mg/dL POC Glucose (70-105) Total Creatine Kinase 212 H 177 H (55-170) units/L Troponin T 0.069 H 0.079 H (0.00-0.029) ng/mL Albumin (3.9-5) g/dL Triglycerides (2-149) mg/dL 02/22/19 Range/Units 16:41 RBC (3.65-5.03) M/mm3 Hgb (11.8-15.2) gm/dl Hct (35.5-45.6) % Seg Neutrophils % (40.0-70.0) % Potassium (3.6-5.0) mmol/L BUN (9-20) mg/dL Creatinine (0.8-1.5) mg/dL Glucose (75-100) mg/dL POC Glucose 185 H (70-105) Total Creatine Kinase (55-170) units/L Troponin T (0.00-0.029) ng/mL Albumin (3.9-5) g/dL Triglycerides (2-149) mg/dL Assessment and Plan 1. Hematemesis - unclear if patient truly had this. Vomiting of blood was noted after he had eaten watermelon. With repeated bouts of vomiting prior to that, he could well have developed a Magnolia-Manuel tear. At this point, there is certainly no evidence of significant GI bleeding. His hemoglobin on admission at 10.4 was higher than his hemoglobin last week on February 15 at 8.7. History of peptic ulcer disease diagnosed at endoscopy last month in [place] is perplexing since patient was given no medications for peptic ulcer disease. He denies GERD symptoms. - Initiate PPI - Monitor H&H and transfuse if needed - Will do endoscopy if oriented - Would obtain endoscopy reports and records from [place] if possible. 2. N/V/D - most consistent with acute gastroenteritis. Appears to have been s elf-limited and is resolving. - Advance diet as tolerated.
[2019-02-22 21:33] LABS: Hematocrit 27.2 % (35.5-45.6); Hemoglobin 9.1 gm/dl (11.8-15.2)
[2019-02-23] MEDS: SODIUM CHLORIDE FLUSH SYRINGE 10 ML IV SCH ×3 (00:46→22:44)
[2019-02-23] MEDS: REGLAN IV PRN ×2 (03:29→22:48)
[2019-02-23] MEDS: MORPHINE IV PRN ×4 (03:30→22:43)
[2019-02-23 07:54] LABS: Basophils % (Auto) 0.8 % (0.0-1.8); Eosinophils # (Auto) 0.1 K/mm3 (0.0-0.4); Eosinophils % (Auto) 1.7 % (0.0-4.3); Hematocrit 25.5 % (35.5-45.6); Hemoglobin 8.7 gm/dl (11.8-15.2); Lymphocytes # (Auto) 1.5 K/mm3 (1.2-5.4); Lymphocytes % (Auto) 24.9 % (13.4-35.0); Mean Corpuscular HGB Conc 34 % (32-34); Mean Corpuscular Volume 89 fl (84-94); Monocytes # (Auto) 0.4 K/mm3 (0.0-0.8); Monocytes % (Auto) 7.2 % (0.0-7.3); Platelet Count 242 K/mm3 (140-440); Red Blood Count 2.88 M/mm3 (3.65-5.03); Red Cell Distribution Width 14.7 % (13.2-15.2)
[2019-02-23 08:16] LABS: Calcium 8.4 mg/dL (8.4-10.2)
--- NOTE | 2019-02-23 09:44 | Progress Note ---
Assessment and Plan - Patient Problems (1) ESRD (end stage renal disease) Current Visit: No Status: Chronic Plan to address problem: Will continue him on a Thursday//Thursday inpatient hemodialysis schedule. Hemodialysis orders placed at this time. (2) Hematemesis Current Visit: Yes Status: Acute Plan to address problem: Patient is pending a gastroenterology evaluation at this time. He has not required any blood transfusion during this hospitalization. He is overall hemodynamically otherwise stable. We'll continue to monitor closely. Further recommendations per gastroenterology consultation. (3) Hypertensive chronic kidney disease with stage 5 chronic kidney disease or end stage renal disease Current Visit: No Status: Chronic Plan to address problem: We will monitor closely on his current regimen. (4) HIV (human immunodeficiency virus infection) Current Visit: Yes Status: Chronic Qualifiers: Plan to address problem: Management per infectious disease attending. Subjective Date of service: 02/23/19 Interval history: No acute events overnight. Gastroenterology evaluation noted. Patient on proton pump inhibitor. Nausea and vomiting has improved at this time. No more episodes of hematemesis. Hemoglobin and hematocrit levels reviewed at 8.7/27.5. He did receive hemodialysis yesterday without any acute issues. Objective - Vital Signs Vital signs: Vital Signs - 12hr 02/22/19 02/22/19 02/23/19 22:31 23:29 04:05 Temperature 97.9 F 98.5 F Pulse Rate 96 H 97 H Respiratory 18 18 18 Rate Blood Pressure 127/78 131/71 O2 Sat by Pulse 99 96 Oximetry 02/23/19 08:32 Temperature 98.7 F Pulse Rate 90 Respiratory 20 Rate Blood Pressure 145/85 O2 Sat by Pulse 96 Oximetry - General Appearance General appearance: well-developed, appears stated age, obese EENT: ATNC, PERRL Neck: no JVD, no thyromegaly Respiratory: Present: Clear to Ascultation, Normal Exam Cardiology: regular, normal heart rate Gastrointestinal: normal Integumentary: no rash, warm and dry Neurologic: no focal deficit, no asterixis, alert and oriented x3 Musculoskeletal: other (negative edema) Psychiatric: mood/affect appropriate, cooperative - Lab 02/23/19 06:56 02/23/19 06:56 Most recent lab results Calcium 8.4 mg/dL (8.4-10.2) 02/23/19 06:56 Medications & Allergies - Medications Allergies/Adverse Reactions: Allergies Penicillins Allergy (Verified 02/11/19 14:13) Hives Home Medications: Home Medications Medication Instructions Recorded Confirmed Last Taken Type ISOSORBIDE MONOnitrate [Imdur ER] 30 mg PO DAILY #30 tablet 02/16/19 02/23/19 Unknown Rx Labetalol [Labetalol 200mg TAB] 200 mg PO BID #60 tablet 02/16/19 02/23/19 Unknown Rx Mirtazapine Solutab [Remeron 15mg 15 mg PO QHS #30 tab.rapdis 02/16/19 02/23/19 Unknown Rx Solutab] amLODIPine [Norvasc] 5 mg PO DAILY #30 tablet 02/16/19 02/23/19 Unknown Rx hydrALAZINE [Apresoline TAB] 100 mg PO TID #30 tab 02/16/19 02/23/19 Unknown Rx Active Medications: Generic Name Dose Route Start Last Admin Trade Name Freq PRN Reason Stop Dose Admin Acetaminophen 650 mg 02/22/19 05:47 Tylenol PO Q4H PRN Pain MILD(1-3)/Fever >100.5/CHOUDHARY Epoetin Jv 10,000 unit 02/22/19 07:58 Procrit IV TORY PRN hemodialysis Hydralazine HCl 5 mg 02/22/19 05:53 02/22/19 06:21 Apresoline IV 5 mg Q6H PRN Administration Hypertension Sodium Chloride 100 mls @ 999 mls/hr 02/22/19 07:58 Nacl 0.9% IV TORY PRN Hypotension Metoclopramide HCl 5 mg 02/22/19 05:47 02/23/19 03:29 Reglan IV 5 mg Q6H PRN Administration Nausea And Vomiting Morphine Sulfate 2 mg 02/22/19 05:47 02/23/19 03:30 Morphine IV 2 mg Q4H PRN Administration Pain, Moderate (4-6) Ondansetron HCl 4 mg 02/22/19 05:47 02/22/19 22:33 Zofran IV 4 mg Q4H PRN Administration Nausea And Vomiting Pantoprazole Sodium 40 mg 02/22/19 10:00 02/22/19 22:33 Protonix IV 40 mg BID SHIRA Administration Promethazine HCl 25 mg 02/22/19 05:47 02/22/19 06:12 Phenergan [place] 25 mg Q6H PRN Administration N/V IF NPO AND NO IV ACCESS Sodium Chloride 10 ml 02/22/19 10:00 02/23/19 00:46 Sodium Chloride Flush Syringe 10 Ml IV 10 ml BID SHIRA Administration Sodium Chloride 10 ml 02/22/19 05:47 Sodium Chloride Flush Syringe 10 Ml IV PRN PRN LINE FLUSH
[2019-02-23] MEDS: PROTONIX IV SCH ×2 (10:05→22:42)
[2019-02-23] MEDS: ZOFRAN IV PRN (10:05)
--- NOTE | 2019-02-23 11:01 | Progress Note ---
Assessment and Plan 1. Hematemesis - unclear if patient truly had this. Vomiting of blood was noted after he had eaten watermelon. With repeated bouts of vomiting prior to that, he could well have developed a Magnolia-Manuel tear. At this point, there is certainly no evidence of significant GI bleeding. His hemoglobin on admission at 10.4 was higher than his hemoglobin last week on February 15 at 8.7. History of peptic ulcer disease diagnosed at endoscopy last month in [place] is perplexing since patient was given no medications for peptic ulcer disease. He denies GERD symptoms. - Initiate PPI - Monitor H&H and transfuse if needed - Will do endoscopy if warranted - Would obtain endoscopy reports and records from [place] if possible. 2. N/V/D - most consistent with acute gastroenteritis. Resolving. - Clears. 3. Lower abd pain - likely due to gastroenteritis. 4. Anemia - prob due to ESRD, possibly HIV. - check iron levels - if low, colonoscopy. Subjective Date of service: 02/23/19 Interval history: Pt complains of intermittent lower abd pain, mel in RLQ. Notes that BMs changed from qd to q several days 3 months ago. Anxious about LGI pathology due to perceived delays in diagnosis of back abscess, and of renal disease. Objective - Constitutional Vitals: Vital Signs - 12hr 02/22/19 02/23/19 02/23/19 23:29 04:05 08:32 Temperature 97.9 F 98.5 F 98.7 F Pulse Rate 96 H 97 H 90 Respiratory 18 18 20 Rate Blood Pressure 127/78 131/71 145/85 O2 Sat by Pulse 99 96 96 Oximetry General appearance: Present: no acute distress - EENT Eyes: PERRL, EOM intact ENT: hearing intact - Respiratory Respiratory effort: normal - Gastrointestinal General gastrointestinal: Present: soft, tender (mild lower) - Labs CBC & Chem 7: 02/23/19 06:56 02/23/19 06:56 Labs: Abnormal lab results 02/22/19 02/22/19 02/22/19 Range/Units 11:50 16:41 20:55 RBC (3.65-5.03) M/mm3 Hgb (11.8-15.2) gm/dl Hct (35.5-45.6) % Creatinine (0.8-1.5) mg/dL Glucose (75-100) mg/dL POC Glucose 185 H 154 H (70-105) Total Creatine Kinase 177 H (55-170) units/L Troponin T 0.079 H (0.00-0.029) ng/mL 02/22/19 02/23/19 02/23/19 Range/Units 21:10 06:37 06:56 RBC 2.88 L (3.65-5.03) M/mm3 Hgb 9.1 L 8.7 L (11.8-15.2) gm/dl Hct 27.2 L 25.5 L (35.5-45.6) % Creatinine (0.8-1.5) mg/dL Glucose (75-100) mg/dL POC Glucose 118 H (70-105) Total Creatine Kinase (55-170) units/L Troponin T (0.00-0.029) ng/mL 02/23/19 02/23/19 Range/Units 06:56 08:37 RBC (3.65-5.03) M/mm3 Hgb (11.8-15.2) gm/dl Hct (35.5-45.6) % Creatinine 4.3 H (0.8-1.5) mg/dL Glucose 113 H (75-100) mg/dL POC Glucose 125 H (70-105) Total Creatine Kinase (55-170) units/L Troponin T (0.00-0.029) ng/mL Medications & Allergies - Medications Allergies/Adverse Reactions: Allergies Penicillins Allergy (Verified 02/11/19 14:13) Hives Home Medications: Home Medications Medication Instructions Recorded Confirmed Last Taken Type ISOSORBIDE MONOnitrate [Imdur ER] 30 mg PO DAILY #30 tablet 02/16/19 02/23/19 Unknown Rx Labetalol [Labetalol 200mg TAB] 200 mg PO BID #60 tablet 02/16/19 02/23/19 Unknown Rx Mirtazapine Solutab [Remeron 15mg 15 mg PO QHS #30 tab.rapdis 02/16/19 02/23/19 Unknown Rx Solutab] amLODIPine [Norvasc] 5 mg PO DAILY #30 tablet 02/16/19 02/23/19 Unknown Rx hydrALAZINE [Apresoline TAB] 100 mg PO TID #30 tab 02/16/19 02/23/19 Unknown Rx Active Medications: Generic Name Dose Route Start Last Admin Trade Name Dognq PRN Reason Stop Dose Admin Acetaminophen 650 mg 02/22/19 05:47 Tylenol PO Q4H PRN Pain MILD(1-3)/Fever >100.5/CHOUDAHRY Epoetin Jv 10,000 unit 02/22/19 07:58 Procrit IV TORY PRN hemodialysis Hydralazine HCl 5 mg 02/22/19 05:53 02/22/19 06:21 Apresoline IV 5 mg Q6H PRN Administration Hypertension Hydralazine HCl 100 mg 02/23/19 14:00 Apresoline PO TID SHIRA Sodium Chloride 100 mls @ 999 mls/hr 02/22/19 07:58 Nacl 0.9% IV TORY PRN Hypotension Isosorbide Mononitrate 30 mg 02/23/19 11:00 Imdur PO DAILY SHIRA Labetalol HCl 200 mg 02/23/19 11:00 Normodyne PO BID SHIRA Metoclopramide HCl 5 mg 02/22/19 05:47 02/23/19 03:29 Reglan IV 5 mg Q6H PRN Administration Nausea And Vomiting Mirtazapine 15 mg 02/23/19 22:00 Remeron Solutab PO QHS SHIRA Morphine Sulfate 2 mg 02/22/19 05:47 02/23/19 10:05 Morphine IV 2 mg Q4H PRN Administration Pain, Moderate (4-6) Ondansetron HCl 4 mg 02/22/19 05:47 02/23/19 10:05 Zofran IV 4 mg Q4H PRN Administration Nausea And Vomiting Pantoprazole Sodium 40 mg 02/22/19 10:00 02/23/19 10:05 Protonix IV 40 mg BID SHIRA Administration Promethazine HCl 25 mg 02/22/19 05:47 02/22/19 06:12 Phenergan [place] 25 mg Q6H PRN Administration N/V IF NPO AND NO IV ACCESS Sodium Chloride 10 ml 02/22/19 10:00 02/23/19 10:06 Sodium Chloride Flush Syringe 10 Ml IV 10 ml BID SHIRA Administration Sodium Chloride 10 ml 02/22/19 05:47 Sodium Chloride Flush Syringe 10 Ml IV PRN PRN LINE FLUSH
[2019-02-23 13:32] LABS: Iron 29 ug/dL (49-181); Total Iron Binding Capacity 181 mcg/dL (250-450)
--- NOTE | 2019-02-23 15:06 | Progress Note ---
Assessment and Plan Assessment and plan: Hematemesis -Unclear etiology. -Continue PPI -H&H stable -Endoscopy reports to be obtained from [place] if possible per GI N/V/D -Likely due to acute gastroenteritis. -Resolved Acute Lower abd pain -likely due to gastroenteritis, resolved ESRD on HD -Nephrology following Anemia of chronic dx due to ESRD -per GI: check iron level and if low, will proceed with colonoscopy Hypertensive emergency present on admission -Blood pressure improved, home antihypertensives resumed, will monitor DM2 with hyperglycemia -Blood glucose improved, we will monitor New systolic heart failure with EF of 40-45% per echo on 02/22 -No acute exacerbation DVT prophylaxis with SCD Disposition: Discharge planning after colonoscopy History Interval history: Patient reports feeling better today. His abdominal pain has improved. He denies bleeding from any orifice, nausea or vomiting. Hospitalist Physical - Constitutional Vitals: Temp Pulse Resp BP Pulse Ox 98.7 F 90 20 145/85 96 02/23/19 08:32 02/23/19 08:32 02/23/19 08:32 02/23/19 08:32 02/23/19 08:32 General appearance: Present: no acute distress, obese - EENT Eyes: Present: EOM intact ENT: hearing intact, clear oral mucosa - Neck Neck: Present: supple - Respiratory Respiratory effort: normal Respiratory: bilateral: CTA - Cardiovascular Rhythm: regular Heart Sounds: Present: S1 & S2 - Extremities Extremities: No edema - Abdominal General gastrointestinal: soft, non-tender, normal bowel sounds - Integumentary Integumentary: Present: clear, warm, dry - Psychiatric Psychiatric: appropriate mood/affect - Neurologic Neurologic: CNII-XII intact Results - Labs CBC & Chem 7: 02/23/19 06:56 02/23/19 06:56 Labs: Laboratory Last Values WBC 6.1 K/mm3 (4.5-11.0) 02/23/19 06:56 RBC 2.88 M/mm3 (3.65-5.03) L 02/23/19 06:56 Hgb 8.7 gm/dl (11.8-15.2) L 02/23/19 06:56 Hct 25.5 % (35.5-45.6) L 02/23/19 06:56 MCV 89 fl (84-94) 02/23/19 06:56 MCH 30 pg (28-32) 02/23/19 06:56 MCHC 34 % (32-34) 02/23/19 06:56 RDW 14.7 % (13.2-15.2) 02/23/19 06:56 Plt Count 242 K/mm3 (140-440) 02/23/19 06:56 Lymph % (Auto) 24.9 % (13.4-35.0) 02/23/19 06:56 [place] % (Auto) 7.2 % (0.0-7.3) 02/23/19 06:56 Eos % (Auto) 1.7 % (0.0-4.3) 02/23/19 06:56 Baso % (Auto) 0.8 % (0.0-1.8) 02/23/19 06:56 Lymph # 1.5 K/mm3 (1.2-5.4) 02/23/19 06:56 [place] # 0.4 K/mm3 (0.0-0.8) 02/23/19 06:56 Eos # 0.1 K/mm3 (0.0-0.4) 02/23/19 06:56 Baso # 0.0 K/mm3 (0.0-0.1) 02/23/19 06:56 Seg Neutrophils % 65.4 % (40.0-70.0) 02/23/19 06:56 Seg Neutrophils # 4.0 K/mm3 (1.8-7.7) 02/23/19 06:56 PT 12.7 Sec. (12.2-14.9) 02/22/19 02:58 INR 0.98 (0.87-1.13) 02/22/19 02:58 APTT 29.2 Sec. (24.2-36.6) 02/22/19 02:58 Sodium 141 mmol/L (137-145) 02/23/19 06:56 Potassium 3.6 mmol/L (3.6-5.0) 02/23/19 06:56 Chloride 101.3 mmol/L (98-107) 02/23/19 06:56 Carbon Dioxide 29 mmol/L (22-30) D 02/23/19 06:56 14 mmol/L 02/23/19 06:56 BUN 20 mg/dL (9-20) 02/23/19 06:56 4.3 mg/dL (0.8-1.5) H 02/23/19 06:56 Estimated GFR 20 ml/min 02/23/19 06:56 5 % 02/23/19 06:56 Glucose 113 mg/dL (75-100) H 02/23/19 06:56 POC Glucose 125 (70-105) H 02/23/19 08:37 Calcium 8.4 mg/dL (8.4-10.2) 02/23/19 06:56 Iron 29 ug/dL (49-181) L 02/23/19 11:55 TIBC 181 mcg/dL (250-450) L 02/23/19 11:55 143.3 ng/mL (13.0-400.0) 02/23/19 11:55 0.90 mg/dL (0.1-1.2) 02/22/19 02:58 AST 21 units/L (5-40) 02/22/19 02:58 ALT 15 units/L (7-56) 02/22/19 02:58 70 units/L (35-129) 02/22/19 02:58 177 units/L (55-170) H 02/22/19 11:50 CK-MB (CK-2) 3.0 ng/mL (0.0-4.0) 02/22/19 11:50 CK-MB (CK-2) Rel Index 1.6 (0-4) 02/22/19 11:50 0.079 ng/mL (0.00-0.029) H 02/22/19 11:50 7.5 g/dL (6.3-8.2) 02/22/19 02:58 3.2 g/dL (3.9-5) L 02/22/19 02:58 0.7 % 02/22/19 02:58 Triglycerides 155 mg/dL (2-149) H 02/22/19 02:58 Cholesterol 128 mg/dL (50-199) 02/22/19 02:58 70 mg/dL (50-130) 02/22/19 02:58 40 mg/dL (40-59) 02/22/19 02:58 3.20 % 02/22/19 02:58 34 units/L (13-60) 02/22/19 02:58 Blood Type O POSITIVE 02/22/19 04:20 Antibody Screen Negative 02/22/19 04:20 Active Medications - Current Medications Current Medications: Generic Name Dose Route Start Last Admin Trade Name Freq PRN Reason Stop Dose Admin Acetaminophen 650 mg 02/22/19 05:47 Tylenol PO Q4H PRN Pain MILD(1-3)/Fever >100.5/CHOUDHARY Epoetin Jv 10,000 unit 02/22/19 07:58 Procrit IV TORY PRN hemodialysis Hydralazine HCl 5 mg 02/22/19 05:53 02/22/19 06:21 Apresoline IV 5 mg Q6H PRN Administration Hypertension Hydralazine HCl 100 mg 02/23/19 14:00 Apresoline PO TID SHIRA Sodium Chloride 100 mls @ 999 mls/hr 02/22/19 07:58 Nacl 0.9% IV TORY PRN Hypotension Isosorbide Mononitrate 30 mg 02/23/19 11:00 Imdur PO DAILY [facility] Labetalol HCl 200 mg 02/23/19 11:00 Normodyne PO BID [facility] Metoclopramide HCl 5 mg 02/22/19 05:47 02/23/19 03:29 Reglan IV 5 mg Q6H PRN Administration Nausea And Vomiting Mirtazapine 15 mg 02/23/19 22:00 Remeron Solutab PO QHS [facility] Morphine Sulfate 2 mg 02/22/19 05:47 02/23/19 10:05 Morphine IV 2 mg Q4H PRN Administration Pain, Moderate (4-6) Ondansetron HCl 4 mg 02/22/19 05:47 02/23/19 10:05 Zofran IV 4 mg Q4H PRN Administration Nausea And Vomiting Pantoprazole Sodium 40 mg 02/22/19 10:00 02/23/19 10:05 Protonix IV 40 mg BID SHIRA Administration Promethazine HCl 25 mg 02/22/19 05:47 02/22/19 06:12 Phenergan [place] 25 mg Q6H PRN Administration N/V IF NPO AND NO IV ACCESS Sodium Chloride 10 ml 02/22/19 10:00 02/23/19 10:06 Sodium Chloride Flush Syringe 10 Ml IV 10 ml BID SHIRA Administration Sodium Chloride 10 ml 02/22/19 05:47 Sodium Chloride Flush Syringe 10 Ml IV PRN PRN LINE FLUSH
[2019-02-23] MEDS ORDERED: D50W (25GM) Syringe IV PRN (15:30)
[2019-02-23] MEDS: NORMODYNE PO SCH ×2 (17:43→22:42)
[2019-02-23] MEDS: APRESOLINE PO SCH ×2 (17:44→22:43)
[2019-02-23] MEDS: IMDUR PO SCH (17:44)
[2019-02-23] MEDS: HumaLOG SUB-Q SCH ×2 (17:46→22:44)
[2019-02-23] MEDS: REMERON SOLUTAB PO SCH (22:42)
[2019-02-23] MEDS: LANTUS SUB-Q SCH (22:48)
[2019-02-24] MEDS: MORPHINE IV PRN ×4 (04:48→21:37)
[2019-02-24 05:58] LABS: Hematocrit 23.7 % (35.5-45.6); Hemoglobin 7.8 gm/dl (11.8-15.2); Mean Corpuscular HGB Conc 33 % (32-34); Mean Corpuscular Volume 89 fl (84-94); Platelet Count 270 K/mm3 (140-440); Red Blood Count 2.65 M/mm3 (3.65-5.03); Red Cell Distribution Width 14.4 % (13.2-15.2)
[2019-02-24 06:13] LABS: Calcium 7.8 mg/dL (8.4-10.2)
[2019-02-24] MEDS: PROTONIX IV SCH (09:14)
[2019-02-24] MEDS: HumaLOG SUB-Q SCH ×4 (09:15→21:11)
[2019-02-24] MEDS: ZOFRAN IV PRN (09:17)
--- NOTE | 2019-02-24 09:39 | Progress Note ---
Assessment and Plan - Patient Problems (1) ESRD (end stage renal disease) Current Visit: No Status: Chronic Plan to address problem: Will continue him on a Thursday//Thursday inpatient hemodialysis schedule. Hemodialysis orders placed at this time. (2) Hematemesis Current Visit: Yes Status: Acute Plan to address problem: Patient is pending a gastroenterology evaluation at this time. He has not required any blood transfusion during this hospitalization. He is overall hemodynamically otherwise stable. We'll continue to monitor closely. Further recommendations per gastroenterology. (3) Hypertensive chronic kidney disease with stage 5 chronic kidney disease or end stage renal disease Current Visit: No Status: Chronic Plan to address problem: We will monitor closely on his current regimen. (4) HIV (human immunodeficiency virus infection) Current Visit: Yes Status: Chronic Qualifiers: Plan to address problem: Management per infectious disease attending. Subjective Date of service: 02/24/19 Interval history: No acute events overnight. He admits to mild nausea but no more vomiting. He is tolerating clear liquid diet. GI evaluation was noted. Possibility of colonoscopy. Objective - Vital Signs Vital signs: Vital Signs - 12hr 02/23/19 02/24/19 02/24/19 22:42 00:00 00:07 Temperature 98.6 F Pulse Rate 98 H 96 H Respiratory 22 Rate Blood Pressure 140/91 104/54 O2 Sat by Pulse 98 Oximetry 02/24/19 02/24/19 03:50 08:03 Temperature 98.4 F 98.2 F Pulse Rate 97 H 94 H Respiratory 18 12 Rate Blood Pressure 124/68 139/77 O2 Sat by Pulse 97 96 Oximetry - General Appearance General appearance: well-developed, well-nourished, appears stated age, obese EENT: ATNC, PERRL Neck: no JVD, no thyromegaly Respiratory: Present: Clear to Ascultation Cardiology: regular, S1S2 Gastrointestinal: normal, normoactive bowel sounds Integumentary: no rash, warm and dry Neurologic: no focal deficit, no asterixis, alert and oriented x3 Musculoskeletal: other (-edema ) Psychiatric: mood/affect appropriate, cooperative - Lab 02/24/19 05:32 02/24/19 05:32 Most recent lab results Calcium 7.8 mg/dL (8.4-10.2) L 02/24/19 05:32 - Allied health notes Allied health notes reviewed: nursing Medications & Allergies - Medications Allergies/Adverse Reactions: Allergies Penicillins Allergy (Verified 02/11/19 14:13) Hives Home Medications: Home Medications Medication Instructions Recorded Confirmed Last Taken Type ISOSORBIDE MONOnitrate [Imdur ER] 30 mg PO DAILY #30 tablet 02/16/19 02/23/19 Unknown Rx Labetalol [Labetalol 200mg TAB] 200 mg PO BID #60 tablet 02/16/19 02/23/19 Unknown Rx Mirtazapine Solutab [Remeron 15mg 15 mg PO QHS #30 tab.rapdis 02/16/19 02/23/19 Unknown Rx Solutab] amLODIPine [Norvasc] 5 mg PO DAILY #30 tablet 02/16/19 02/23/19 Unknown Rx hydrALAZINE [Apresoline TAB] 100 mg PO TID #30 tab 02/16/19 02/23/19 Unknown Rx Active Medications: Generic Name Dose Route Start Last Admin Trade Name Dongq PRN Reason Stop Dose Admin Acetaminophen 650 mg 02/22/19 05:47 Tylenol PO Q4H PRN Pain MILD(1-3)/Fever >100.5/CHOUDHARY Dextrose 50 ml 02/23/19 15:30 D50w (25gm) Syringe IV PRN PRN Hypoglycemia Epoetin Jv 10,000 unit 02/22/19 07:58 Procrit IV TORY PRN hemodialysis Hydralazine HCl 5 mg 02/22/19 05:53 02/22/19 06:21 Apresoline IV 5 mg Q6H PRN Administration Hypertension Hydralazine HCl 100 mg 02/23/19 14:00 02/23/19 22:43 Apresoline PO 100 mg TID SHIRA Administration Sodium Chloride 100 mls @ 999 mls/hr 02/22/19 07:58 Nacl 0.9% IV TORY PRN Hypotension Insulin Glargine 10 units 02/23/19 22:00 02/23/19 22:48 Lantus SUB-Q 10 units QHS SHIRA Administration Insulin Human Lispro 0 unit 02/23/19 16:30 02/24/19 09:15 Humalog SUB-Q 2 unit ACHS SHIRA Administration Protocol Isosorbide Mononitrate 30 mg 02/23/19 11:00 02/23/19 17:44 Imdur PO 30 mg DAILY SHIRA Administration Labetalol HCl 200 mg 02/23/19 11:00 02/23/19 22:42 Normodyne PO 200 mg BID SHIRA Administration Metoclopramide HCl 5 mg 02/22/19 05:47 02/23/19 22:48 Reglan IV 5 mg Q6H PRN Administration Nausea And Vomiting Mirtazapine 15 mg 02/23/19 22:00 02/23/19 22:42 Remeron Solutab PO 15 mg QHS SHIRA Administration Morphine Sulfate 2 mg 02/22/19 05:47 02/24/19 09:17 Morphine IV 2 mg Q4H PRN Administration Pain, Moderate (4-6) Ondansetron HCl 4 mg 02/22/19 05:47 02/24/19 09:17 Zofran IV 4 mg Q4H PRN Administration Nausea And Vomiting Pantoprazole Sodium 40 mg 02/24/19 10:00 Protonix PO BID SHIRA Promethazine HCl 25 mg 02/22/19 05:47 02/22/19 06:12 Phenergan [place] 25 mg Q6H PRN Administration N/V IF NPO AND NO IV ACCESS Sodium Chloride 10 ml 02/22/19 10:00 02/23/19 22:44 Sodium Chloride Flush Syringe 10 Ml IV 10 ml BID SHIRA Administration Sodium Chloride 10 ml 02/22/19 05:47 Sodium Chloride Flush Syringe 10 Ml IV PRN PRN LINE FLUSH
[2019-02-24] MEDS ORDERED: NACL 0.9 (PRIMING MACHINE ONLY DIALYSIS) MC ONE (12:49)
--- NOTE | 2019-02-24 13:11 | Progress Note ---
Assessment and Plan Assessment and plan: Hematemesis -Unclear etiology. -Continue PPI -H&H trending down, will monitor and transfuse as needed -Endoscopy reports to be obtained from [place] if possible per GI N/V/D -Likely due to acute gastroenteritis. -Resolved Acute Lower abd pain -likely due to gastroenteritis, improved Mild hypokalemia -We will monitor and check magnesium level ESRD on HD -Nephrology following Anemia of chronic dx due to ESRD -iron level low, for possible colonoscopy in am by GI Hypertensive emergency present on admission -Blood pressure improved -We'll continue labetalol and hold hydralazine DM2 with hyperglycemia -Blood glucose controlled on current insulin regimen, we will monitor New systolic heart failure with EF of 40-45% per echo on 02/22 -No acute exacerbation DVT prophylaxis with SCD Disposition: Discharge planning after colonoscopy History Interval history: Patient has no new complaints. He denies bleeding from any orifice, nausea or vomiting. Hospitalist Physical - Constitutional Vitals: Temp Pulse Resp BP Pulse Ox 97.9 F 97 H 16 118/68 96 02/24/19 10:00 02/24/19 12:15 02/24/19 10:00 02/24/19 12:15 02/24/19 08:03 General appearance: Present: no acute distress, obese - EENT Eyes: Present: PERRL, EOM intact ENT: hearing intact, clear oral mucosa - Neck Neck: Present: supple - Respiratory Respiratory effort: normal Respiratory: bilateral: CTA - Cardiovascular Rhythm: regular Heart Sounds: Present: S1 & S2 - Extremities Extremities: No edema - Abdominal General gastrointestinal: soft, tender (lower abd), normal bowel sounds - Integumentary Integumentary: Present: clear, warm, dry - Psychiatric Psychiatric: appropriate mood/affect - Neurologic Neurologic: CNII-XII intact Results - Labs CBC & Chem 7: 02/24/19 05:32 02/24/19 05:32 Labs: Laboratory Last Values WBC 6.9 K/mm3 (4.5-11.0) 02/24/19 05:32 RBC 2.65 M/mm3 (3.65-5.03) L 02/24/19 05:32 Hgb 7.8 gm/dl (11.8-15.2) L 02/24/19 05:32 Hct 23.7 % (35.5-45.6) L 02/24/19 05:32 MCV 89 fl (84-94) 02/24/19 05:32 MCH 29 pg (28-32) 02/24/19 05:32 MCHC 33 % (32-34) 02/24/19 05:32 RDW 14.4 % (13.2-15.2) 02/24/19 05:32 Plt Count 270 K/mm3 (140-440) 02/24/19 05:32 Lymph % (Auto) 24.9 % (13.4-35.0) 02/23/19 06:56 [place] % (Auto) 7.2 % (0.0-7.3) 02/23/19 06:56 Eos % (Auto) 1.7 % (0.0-4.3) 02/23/19 06:56 Baso % (Auto) 0.8 % (0.0-1.8) 02/23/19 06:56 Lymph # 1.5 K/mm3 (1.2-5.4) 02/23/19 06:56 [place] # 0.4 K/mm3 (0.0-0.8) 02/23/19 06:56 Eos # 0.1 K/mm3 (0.0-0.4) 02/23/19 06:56 Baso # 0.0 K/mm3 (0.0-0.1) 02/23/19 06:56 Seg Neutrophils % 65.4 % (40.0-70.0) 02/23/19 06:56 Seg Neutrophils # 4.0 K/mm3 (1.8-7.7) 02/23/19 06:56 PT 12.7 Sec. (12.2-14.9) 02/22/19 02:58 INR 0.98 (0.87-1.13) 02/22/19 02:58 APTT 29.2 Sec. (24.2-36.6) 02/22/19 02:58 Sodium 137 mmol/L (137-145) 02/24/19 05:32 Potassium 3.4 mmol/L (3.6-5.0) L 02/24/19 05:32 Chloride 97.9 mmol/L (98-107) L 02/24/19 05:32 Carbon Dioxide 27 mmol/L (22-30) 02/24/19 05:32 16 mmol/L 02/24/19 05:32 BUN 26 mg/dL (9-20) H 02/24/19 05:32 5.9 mg/dL (0.8-1.5) H 02/24/19 05:32 Estimated GFR 14 ml/min 02/24/19 05:32 4 % 02/24/19 05:32 Glucose 149 mg/dL (75-100) H 02/24/19 05:32 POC Glucose 182 (70-105) H 02/24/19 08:21 Calcium 7.8 mg/dL (8.4-10.2) L 02/24/19 05:32 Iron 29 ug/dL (49-181) L 02/23/19 11:55 TIBC 181 mcg/dL (250-450) L 02/23/19 11:55 143.3 ng/mL (13.0-400.0) 02/23/19 11:55 0.90 mg/dL (0.1-1.2) 02/22/19 02:58 AST 21 units/L (5-40) 02/22/19 02:58 ALT 15 units/L (7-56) 02/22/19 02:58 70 units/L (35-129) 02/22/19 02:58 177 units/L (55-170) H 02/22/19 11:50 CK-MB (CK-2) 3.0 ng/mL (0.0-4.0) 02/22/19 11:50 CK-MB (CK-2) Rel Index 1.6 (0-4) 02/22/19 11:50 0.079 ng/mL (0.00-0.029) H 02/22/19 11:50 7.5 g/dL (6.3-8.2) 02/22/19 02:58 3.2 g/dL (3.9-5) L 02/22/19 02:58 0.7 % 02/22/19 02:58 Triglycerides 155 mg/dL (2-149) H 02/22/19 02:58 Cholesterol 128 mg/dL (50-199) 02/22/19 02:58 70 mg/dL (50-130) 02/22/19 02:58 40 mg/dL (40-59) 02/22/19 02:58 3.20 % 02/22/19 02:58 34 units/L (13-60) 02/22/19 02:58 Blood Type O POSITIVE 02/22/19 04:20 Antibody Screen Negative 02/22/19 04:20 Active Medications - Current Medications Current Medications: Generic Name Dose Route Start Last Admin Trade Name Freq PRN Reason Stop Dose Admin Acetaminophen 650 mg 02/22/19 05:47 Tylenol PO Q4H PRN Pain MILD(1-3)/Fever >100.5/CHOUDHARY Dextrose 50 ml 02/23/19 15:30 D50w (25gm) Syringe IV PRN PRN Hypoglycemia Epoetin Jv 10,000 unit 02/22/19 07:58 Procrit IV TORY PRN hemodialysis Hydralazine HCl 5 mg 02/22/19 05:53 02/22/19 06:21 Apresoline IV 5 mg Q6H PRN Administration Hypertension Hydralazine HCl 100 mg 02/23/19 14:00 02/23/19 22:43 Apresoline PO 100 mg TID SHIRA Administration Sodium Chloride 100 mls @ 999 mls/hr 02/22/19 07:58 Nacl 0.9% IV TORY PRN Hypotension Insulin Glargine 10 units 02/23/19 22:00 02/23/19 22:48 Lantus SUB-Q 10 units QHS SHIRA Administration Insulin Human Lispro 0 unit 02/23/19 16:30 02/24/19 09:15 Humalog SUB-Q 2 unit ACHS SHIRA Administration Protocol Isosorbide Mononitrate 30 mg 02/23/19 11:00 02/23/19 17:44 Imdur PO 30 mg DAILY SHIRA Administration Labetalol HCl 200 mg 02/23/19 11:00 02/23/19 22:42 Normodyne PO 200 mg BID SHIRA Administration Metoclopramide HCl 5 mg 02/22/19 05:47 02/23/19 22:48 Reglan IV 5 mg Q6H PRN Administration Nausea And Vomiting Mirtazapine 15 mg 02/23/19 22:00 02/23/19 22:42 Remeron Solutab PO 15 mg QHS SHIRA Administration Morphine Sulfate 2 mg 02/22/19 05:47 08/01/19 09:17 Morphine IV 2 mg Q4H PRN Administration Pain, Moderate (4-6) Ondansetron HCl 4 mg 02/22/19 05:47 02/24/19 09:17 Zofran IV 4 mg Q4H PRN Administration Nausea And Vomiting Pantoprazole Sodium 40 mg 02/24/19 10:00 Protonix PO BID SHIRA Promethazine HCl 25 mg 02/22/19 05:47 02/22/19 06:12 Phenergan [place] 25 mg Q6H PRN Administration N/V IF NPO AND NO IV ACCESS Sodium Chloride 10 ml 02/22/19 10:00 02/23/19 22:44 Sodium Chloride Flush Syringe 10 Ml IV 10 ml BID SHIRA Administration Sodium Chloride 10 ml 02/22/19 05:47 Sodium Chloride Flush Syringe 10 Ml IV PRN PRN LINE FLUSH Nutrition/Malnutrition Assess - Dietary Evaluation Nutrition/Malnutrition Findings: Nutrition Notes Start: 02/23/19 16:20 Freq: Status: Active Protocol: Document 02/23/19 16:20 RM (Rec: 02/23/19 16:31 RM [id number]) Nutrition Notes Need for Assessment generated from: purse framer Initial or Follow up Assessment Current Diagnosis Diabetes,Hypertension Other Pertinent Diagnosis ESRD on HD, N/V, Gastroparesis , GI bleed Current Diet Clear liquid Labs/Tests Reviewed Pertinent Medications Zofran Height 5 ft 7 in Weight 116.4 kg [place] Body Weight (kg) 67.27 BMI 40.1 Subjective/Other Information Screened for new onset DM. NPO in place earlier. Clear liquid diet ordered later today. 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 Noted lunch ate bedside w/most eaten. Pt admitted to being nauseous from eating the lunch but denied vomiting so far. Stated that he was supposed to receive a clear liquid meal but received solid instead. Unsure of dry wt. Pt stated that he is already familiar w/DM diet education. Burn Absent Trauma Absent #1 Nutrition Diagnosis Inadequate oral intake Etiology N/V As Evidenced by Signs and Symptoms pt on clear liquid diet Is patient on ventilator? No Is Patient Ambulatory and/or Out of Bed Yes REE-([place]-St. Jeor-ambulatory/OOB) [ 5200.919 [id number]] Kcal/Kg value to use for calculation 19 Approximate Energy Requirements Using 2212 kcal/Kg Calculation Used for Recommendations Kcal/kg Additional Notes Protein Needs: 110-120g (1.2-1 .3g/kg 92kg adjBW) Fluid Needs: 1 ml/kcal Nutrition Intervention Change Diet Order: Advance diet when medically able Add Supplement/Snack (indicate name/kcal Ensure Clear 1 daily /protein ) Provides kCal: 240 Provides Protein (gm) 8 Goal #1 Diet advancement Anticipated Discharge Needs: Unable to determine at this time Follow-Up By: 02/25/19 Additional Comments Follow for PO and ONS intakes
[2019-02-24] MEDS: PROCRIT IV PRN (13:26)
[2019-02-24] MEDS: IMDUR PO SCH (14:25)
[2019-02-24] MEDS: NORMODYNE PO SCH ×2 (14:26→21:10)
[2019-02-24] MEDS: REGLAN IV PRN (14:26)
[2019-02-24] MEDS: PROTONIX PO SCH ×2 (14:27→21:11)
[2019-02-24] MEDS: SODIUM CHLORIDE FLUSH SYRINGE 10 ML IV SCH ×2 (14:28→21:11)
[2019-02-24] MEDS: APRESOLINE IV PRN (14:29)
--- NOTE | 2019-02-24 15:32 | Progress Note ---
Assessment and Plan 1. Hematemesis - Hgb decreasing. Though unclear if patient truly had this, will proceed with EGD. Vomiting of blood was noted after he had eaten watermelon. With repeated bouts of vomiting prior to that, he could well have developed a [place] tear. At this point, there is certainly no evidence of significant GI bleeding. His hemoglobin on admission at 10.4 was higher than his hemoglobin last week on February 15 at 8.7. History of peptic ulcer disease diagnosed at endoscopy last month in [place] is perplexing since patient was given no medications for peptic ulcer disease. He denies GERD symptoms. -EGD tomorrow - monitor H/H and transfuse as needed 2. Lower abd pain - likely due to gastroenteritis. 3. Anemia - prob due to ESRD, possibly HIV. Hgb gradually decreasing. - iron levels equivocal - colonoscopy. Subjective Date of service: 02/24/19 Interval history: Pt without significant change. As per yesterday's note, BMs changed from qd to q several days 3 months ago. Anxious about [facility] pathology due to perceived delays in diagnosis of back abscess, and of renal disease. Objective - Constitutional Vitals: Vital Signs - 12hr 02/24/19 02/24/19 02/24/19 03:50 08:03 10:00 Temperature 98.4 F 98.2 F 97.9 F Pulse Rate 97 H 94 H 91 H Respiratory 18 12 16 Rate Blood Pressure 124/68 139/77 151/83 O2 Sat by Pulse 97 96 Oximetry 02/24/19 02/24/19 02/24/19 10:15 10:30 10:45 Temperature Pulse Rate 95 H 95 H 96 H Respiratory Rate Blood Pressure 137/71 123/63 137/68 O2 Sat by Pulse Oximetry 02/24/19 02/24/19 02/24/19 11:00 11:15 11:30 Temperature Pulse Rate 98 H 99 H 97 H Respiratory Rate Blood Pressure 118/69 111/57 104/54 O2 Sat by Pulse Oximetry 02/24/19 02/24/19 02/24/19 11:45 12:00 12:15 Temperature Pulse Rate 98 H 97 H 97 H Respiratory Rate Blood Pressure 112/61 106/66 118/68 O2 Sat by Pulse Oximetry 02/24/19 02/24/19 02/24/19 12:30 12:45 13:00 Temperature Pulse Rate 102 H 102 H 102 H Respiratory Rate Blood Pressure 100/59 111/66 108/59 O2 Sat by Pulse Oximetry 02/24/19 02/24/19 02/24/19 13:15 13:30 13:45 Temperature 98.1 F Pulse Rate 96 H 98 H 95 H Respiratory 18 Rate Blood Pressure 125/69 111/67 116/69 O2 Sat by Pulse Oximetry 02/24/19 02/24/19 02/24/19 14:25 14:26 14:29 Temperature Pulse Rate 107 H 107 H 107 H Respiratory Rate Blood Pressure 130/79 130/79 130/79 O2 Sat by Pulse Oximetry General appearance: Present: no acute distress - EENT Eyes: PERRL, EOM intact ENT: hearing intact - Respiratory Respiratory effort: normal - Gastrointestinal General gastrointestinal: Present: soft, tender (mild in lower abdomen) - Labs CBC & Chem 7: 02/24/19 05:32 02/24/19 05:32 Labs: Abnormal lab results 02/23/19 02/23/19 02/24/19 Range/Units 17:13 21:33 05:32 RBC 2.65 L (3.65-5.03) M/mm3 Hgb 7.8 L (11.8-15.2) gm/dl Hct 23.7 L (35.5-45.6) % Potassium (3.6-5.0) mmol/L Chloride (98-107) mmol/L BUN (9-20) mg/dL Creatinine (0.8-1.5) mg/dL Glucose (75-100) mg/dL POC Glucose 163 H 145 H (70-105) Calcium (8.4-10.2) mg/dL 02/24/19 02/24/19 02/24/19 Range/Units 05:32 06:12 08:21 RBC (3.65-5.03) M/mm3 Hgb (11.8-15.2) gm/dl Hct (35.5-45.6) % Potassium 3.4 L (3.6-5.0) mmol/L Chloride 97.9 L (98-107) mmol/L BUN 26 H (9-20) mg/dL Creatinine 5.9 H (0.8-1.5) mg/dL Glucose 149 H (75-100) mg/dL POC Glucose 146 H 182 H (70-105) Calcium 7.8 L (8.4-10.2) mg/dL Medications & Allergies - Medications Allergies/Adverse Reactions: Allergies Penicillins Allergy (Verified 02/11/19 14:13) Hives Home Medications: Home Medications Medication Instructions Recorded Confirmed Last Taken Type ISOSORBIDE MONOnitrate [Imdur ER] 30 mg PO DAILY #30 tablet 02/16/19 02/23/19 Unknown Rx Labetalol [Labetalol 200mg TAB] 200 mg PO BID #60 tablet 02/16/19 02/23/19 Unknown Rx Mirtazapine Solutab [Remeron 15mg 15 mg PO QHS #30 tab.rapdis 02/16/19 02/23/19 Unknown Rx Solutab] amLODIPine [Norvasc] 5 mg PO DAILY #30 tablet 02/16/19 02/23/19 Unknown Rx hydrALAZINE [Apresoline TAB] 100 mg PO TID #30 tab 02/16/19 02/23/19 Unknown Rx Active Medications: Generic Name Dose Route Start Last Admin Trade Name Freq PRN Reason Stop Dose Admin Acetaminophen 650 mg 02/22/19 05:47 Tylenol PO Q4H PRN Pain MILD(1-3)/Fever >100.5/CHOUDHARY Dextrose 50 ml 02/23/19 15:30 D50w (25gm) Syringe IV PRN PRN Hypoglycemia Epoetin Jv 10,000 unit 02/22/19 07:58 02/24/19 13:26 Procrit IV 10,000 unit TORY PRN Administration hemodialysis Hydralazine HCl 5 mg 02/22/19 05:53 02/24/19 14:29 Apresoline IV 5 mg Q6H PRN Administration Hypertension Sodium Chloride 100 mls @ 999 mls/hr 02/22/19 07:58 Nacl 0.9% IV TORY PRN Hypotension Insulin Glargine 10 units 02/23/19 22:00 02/23/19 22:48 Lantus SUB-Q 10 units QHS SHIRA Administration Insulin Human Lispro 0 unit 02/23/19 16:30 02/24/19 14:28 Humalog SUB-Q Not Given ACHS [facility] Protocol Isosorbide Mononitrate 30 mg 02/23/19 11:00 02/24/19 14:25 Imdur PO 30 mg DAILY SHIRA Administration Labetalol HCl 200 mg 02/23/19 11:00 02/24/19 14:26 Normodyne PO 200 mg BID SHIRA Administration Metoclopramide HCl 5 mg 02/22/19 05:47 02/24/19 14:26 Reglan IV 5 mg Q6H PRN Administration Nausea And Vomiting Mirtazapine 15 mg 02/23/19 22:00 02/23/19 22:42 Remeron Solutab PO 15 mg QHS SHIRA Administration Morphine Sulfate 2 mg 02/22/19 05:47 02/24/19 14:26 Morphine IV 2 mg Q4H PRN Administration Pain, Moderate (4-6) Ondansetron HCl 4 mg 02/22/19 05:47 02/24/19 09:17 Zofran IV 4 mg Q4H PRN Administration Nausea And Vomiting Pantoprazole Sodium 40 mg 02/24/19 10:00 02/24/19 14:27 Protonix PO 40 mg BID SHIRA Administration Promethazine HCl 25 mg 02/22/19 05:47 02/22/19 06:12 Phenergan [place] 25 mg Q6H PRN Administration N/V IF NPO AND NO IV ACCESS Sodium Chloride 10 ml 02/22/19 10:00 02/24/19 14:28 Sodium Chloride Flush Syringe 10 Ml IV 10 ml BID SHIRA Administration Sodium Chloride 10 ml 02/22/19 05:47 Sodium Chloride Flush Syringe 10 Ml IV PRN PRN LINE FLUSH
[2019-02-24] MEDS ORDERED: GOLYTELY PO ONE (17:00)
[2019-02-24] MEDS: LANTUS SUB-Q SCH (21:10)
[2019-02-24] MEDS: REMERON SOLUTAB PO SCH (21:11)
[2019-02-24] MEDS: APRESOLINE PO SCH (21:36)
[2019-02-25] MEDS: MORPHINE IV PRN (05:14)
[2019-02-25 08:10] LABS: Calcium 8.1 mg/dL (8.4-10.2)
--- NOTE | 2019-02-25 09:34 | Progress Note ---
Assessment and Plan - Patient Problems (1) ESRD (end stage renal disease) Current Visit: No Status: Chronic Plan to address problem: Will continue him on a Thursday//Thursday inpatient hemodialysis schedule. Hemodialysis orders placed at this time. (2) Hematemesis Current Visit: Yes Status: Acute Plan to address problem: Plan for EGD and colonoscopy today. (3) Hypertensive chronic kidney disease with stage 5 chronic kidney disease or end stage renal disease Current Visit: No Status: Chronic Plan to address problem: We will monitor closely on his current regimen. (4) HIV (human immunodeficiency virus infection) Current Visit: Yes Status: Chronic Qualifiers: Plan to address problem: Management per infectious disease attending. Subjective Date of service: 02/25/19 Interval history: Plan for EGD/colonoscopy today. Tolerated HD well yesterday. Objective - Vital Signs Vital signs: Vital Signs - 12hr 02/24/19 02/24/19 02/25/19 23:24 23:28 04:49 Temperature 98.0 F Pulse Rate 105 H 102 H Respiratory 20 20 Rate Blood Pressure 130/88 149/97 O2 Sat by Pulse 98 98 Oximetry 02/25/19 02/25/19 04:51 08:35 Temperature 98.7 F 98.2 F Pulse Rate 101 H Respiratory 20 Rate Blood Pressure 166/92 O2 Sat by Pulse 97 Oximetry - General Appearance General appearance: well-developed, well-nourished, appears stated age, obese EENT: ATNC, PERRL Neck: no JVD, no thyromegaly Respiratory: Present: Clear to Ascultation, Normal Exam Cardiology: regular, S1S2 Gastrointestinal: normal, normoactive bowel sounds Integumentary: no rash, warm and dry Neurologic: no focal deficit, no asterixis Psychiatric: mood/affect appropriate, cooperative - Lab 02/24/19 05:32 02/25/19 07:12 Most recent lab results Calcium 8.1 mg/dL (8.4-10.2) L 02/25/19 07:12 Magnesium 1.80 mg/dL (1.7-2.3) 02/25/19 07:12 Medications & Allergies - Medications Allergies/Adverse Reactions: Allergies Penicillins Allergy (Verified 02/11/19 14:13) Hives Home Medications: Home Medications Medication Instructions Recorded Confirmed Last Taken Type ISOSORBIDE MONOnitrate [Imdur ER] 30 mg PO DAILY #30 tablet 02/16/19 02/23/19 Unknown Rx Labetalol [Labetalol 200mg TAB] 200 mg PO BID #60 tablet 02/16/19 02/23/19 Unknown Rx Mirtazapine Solutab [Remeron 15mg 15 mg PO QHS #30 tab.rapdis 02/16/19 02/23/19 Unknown Rx Solutab] amLODIPine [Norvasc] 5 mg PO DAILY #30 tablet 02/16/19 02/23/19 Unknown Rx hydrALAZINE [Apresoline TAB] 100 mg PO TID #30 tab 02/16/19 02/23/19 Unknown Rx Active Medications: Generic Name Dose Route Start Last Admin Trade Name Freq PRN Reason Stop Dose Admin Acetaminophen 650 mg 02/22/19 05:47 Tylenol PO Q4H PRN Pain MILD(1-3)/Fever >100.5/CHOUDHARY Dextrose 50 ml 02/23/19 15:30 D50w (25gm) Syringe IV PRN PRN Hypoglycemia Epoetin Jv 10,000 unit 02/22/19 07:58 02/24/19 13:26 Procrit IV 10,000 unit TORY PRN Administration hemodialysis Hydralazine HCl 5 mg 02/22/19 05:53 02/24/19 14:29 Apresoline IV 5 mg Q6H PRN Administration Hypertension Sodium Chloride 100 mls @ 999 mls/hr 02/22/19 07:58 Nacl 0.9% IV TORY PRN Hypotension Insulin Glargine 10 units 02/23/19 22:00 02/24/19 21:10 Lantus SUB-Q 10 units QHS SHIRA Administration Insulin Human Lispro 0 unit 02/23/19 16:30 02/24/19 21:11 Humalog SUB-Q Not Given ACHS [facility] Protocol Isosorbide Mononitrate 30 mg 02/23/19 11:00 02/24/19 14:25 Imdur PO 30 mg DAILY SHIRA Administration Labetalol HCl 200 mg 02/23/19 11:00 02/24/19 21:10 Normodyne PO 200 mg BID SHIRA Administration Metoclopramide HCl 5 mg 02/22/19 05:47 02/24/19 14:26 Reglan IV 5 mg Q6H PRN Administration Nausea And Vomiting Mirtazapine 15 mg 02/23/19 22:00 02/24/19 21:11 Remeron Solutab PO 15 mg QHS SHIRA Administration Morphine Sulfate 2 mg 02/22/19 05:47 02/25/19 05:14 Morphine IV 2 mg Q4H PRN Administration Pain, Moderate (4-6) Ondansetron HCl 4 mg 02/22/19 05:47 02/24/19 09:17 Zofran IV 4 mg Q4H PRN Administration Nausea And Vomiting Pantoprazole Sodium 40 mg 02/24/19 10:00 02/24/19 21:11 Protonix PO 40 mg BID SHIRA Administration Promethazine HCl 25 mg 02/22/19 05:47 02/22/19 06:12 Phenergan [place] 25 mg Q6H PRN Administration N/V IF NPO AND NO IV ACCESS Sodium Chloride 10 ml 02/22/19 10:00 02/24/19 21:11 Sodium Chloride Flush Syringe 10 Ml IV 10 ml BID SHIRA Administration Sodium Chloride 10 ml 02/22/19 05:47 Sodium Chloride Flush Syringe 10 Ml IV PRN PRN LINE FLUSH
[2019-02-25] MEDS: NORMODYNE PO SCH ×2 (10:00→22:56)
[2019-02-25] MEDS: IMDUR PO SCH (10:00)
[2019-02-25] MEDS: PROTONIX PO SCH (10:00)
[2019-02-25] MEDS: SODIUM CHLORIDE FLUSH SYRINGE 10 ML IV SCH ×2 (10:01→22:55)
[2019-02-25] MEDS: HumaLOG SUB-Q SCH ×3 (10:06→22:59)
[2019-02-25 10:40] LABS: Hematocrit 23.8 % (35.5-45.6); Hemoglobin 8.1 gm/dl (11.8-15.2); Mean Corpuscular HGB Conc 34 % (32-34); Mean Corpuscular Volume 87 fl (84-94); Platelet Count 261 K/mm3 (140-440); Red Blood Count 2.72 M/mm3 (3.65-5.03)
--- NOTE | 2019-02-25 12:02 | Anesthesia Day of Surgery ---
Anesthesia Day of Surgery - Day of Surgery Patient Examined: Yes Patient H&P Reviewed: Yes Patient is NPO: Yes Beta Blockers: Yes
--- NOTE | 2019-02-25 12:06 | Anesthesia Consultation ---
Anesthesia Consult and Med Hx Date of service: 02/25/19 - Airway Anesthetic Teeth Evaluation: Good ROM Head & Neck: Adequate Mental/Hyoid Distance: Adequate Mallampati Class: Class III Intubation Access Assessment: Probably Good - Pre-Operative Health Status ASA Pre-Surgery Classification: ASA3 Proposed Anesthetic Plan: MAC - Pulmonary Hx Smoking: No Hx Asthma: No COPD: No Hx Pneumonia: No - Cardiovascular System Hx Hypertension: Yes Hx Coronary Artery Disease: No (On Imdur; denies CAD) - Central Nervous System Hx Psychiatric Problems: Yes - Gastrointestinal Hx Ulcer: No (? GI Bleed. Decreasing H/H-8.1/23.8) - Endocrine Hx Renal Disease: No (Tue, thurs, Sat) Hx End Stage Renal Disease: No Hx Insulin Dependent Diabetes: Yes (FBS 125) - Other Systems Hx Alcohol Use: No Hx Cancer: No - Additional Comments Anesthesia Medical History Comments: HIV+
[2019-02-25] MEDS ORDERED: NACL 0.9% 1000 ML 1,000 ML IV SCH (12:30)
[2019-02-25] MEDS ORDERED: XYLOCAINE 1% 20 mL ONE (13:26)
[2019-02-25] MEDS ORDERED: VERSED ONE (13:26)
[2019-02-25] MEDS ORDERED: DIPRIVAN 10 MG/ML IV ONE ×2 (13:26)
--- NOTE | 2019-02-25 14:11 | Progress Note ---
Assessment and Plan Assessment and plan: Hematemesis -Unclear etiology. -Continue PPI -H&H trending down but stable -For colonoscopy today -GI following N/V/D -Likely due to acute gastroenteritis. -Resolved Acute Lower abd pain -likely due to gastroenteritis, resolved Mild hypokalemia -Resolved ESRD on HD -Nephrology following Anemia of chronic dx due to ESRD/HIV -On Epogen, will monitor H/H Hypertensive emergency on admission -Blood pressure trended up today -Continue labetalol, will resume home hydralazine DM2 with hyperglycemia on admission -Blood glucose controlled on current insulin regimen, we will monitor New systolic heart failure with EF of 40-45% per echo on 02/22 -No acute exacerbation DVT prophylaxis with SCD Disposition: Discharge planning after colonoscopy History Interval history: Patient has no new complaints. He denies bleeding from any orifice, nausea or vomiting. His abdominal pain has resolved. Patient stated that his HIV medications were discontinued because one of them was suspected to have caused his kidney failure. He started hemodialysis in December 2018 Hospitalist Physical - Constitutional Vitals: Temp Pulse Resp BP Pulse Ox 99.1 F 99 H 15 160/95 100 02/25/19 12:25 02/25/19 12:25 02/25/19 12:25 02/25/19 12:25 02/25/19 12:25 General appearance: Present: no acute distress, obese - EENT Eyes: Present: PERRL, EOM intact ENT: hearing intact, clear oral mucosa - Neck Neck: Present: supple - Respiratory Respiratory effort: normal Respiratory: bilateral: CTA - Cardiovascular Rhythm: regular Heart Sounds: Present: S1 & S2 - Extremities Extremities: No edema - Abdominal General gastrointestinal: soft, non-tender, normal bowel sounds - Integumentary Integumentary: Present: clear, warm, dry - Psychiatric Psychiatric: appropriate mood/affect - Neurologic Neurologic: CNII-XII intact Results - Labs CBC & Chem 7: 02/25/19 10:27 02/25/19 07:12 Labs: Laboratory Last Values WBC 5.5 K/mm3 (4.5-11.0) 02/25/19 10:27 RBC 2.72 M/mm3 (3.65-5.03) L 02/25/19 10:27 Hgb 8.1 gm/dl (11.8-15.2) L 02/25/19 10:27 Hct 23.8 % (35.5-45.6) L 02/25/19 10:27 MCV 87 fl (84-94) 02/25/19 10:27 MCH 30 pg (28-32) 02/25/19 10:27 MCHC 34 % (32-34) 02/25/19 10:27 RDW 14.0 % (13.2-15.2) 02/25/19 10:27 Plt Count 261 K/mm3 (140-440) 02/25/19 10:27 Lymph % (Auto) 24.9 % (13.4-35.0) 02/23/19 06:56 [place] % (Auto) 7.2 % (0.0-7.3) 02/23/19 06:56 Eos % (Auto) 1.7 % (0.0-4.3) 02/23/19 06:56 Baso % (Auto) 0.8 % (0.0-1.8) 02/23/19 06:56 Lymph # 1.5 K/mm3 (1.2-5.4) 02/23/19 06:56 [place] # 0.4 K/mm3 (0.0-0.8) 02/23/19 06:56 Eos # 0.1 K/mm3 (0.0-0.4) 02/23/19 06:56 Baso # 0.0 K/mm3 (0.0-0.1) 02/23/19 06:56 Seg Neutrophils % 65.4 % (40.0-70.0) 02/23/19 06:56 Seg Neutrophils # 4.0 K/mm3 (1.8-7.7) 02/23/19 06:56 PT 12.7 Sec. (12.2-14.9) 02/22/19 02:58 INR 0.98 (0.87-1.13) 02/22/19 02:58 APTT 29.2 Sec. (24.2-36.6) 02/22/19 02:58 Sodium 136 mmol/L (137-145) L 02/25/19 07:12 Potassium 3.6 mmol/L (3.6-5.0) 02/25/19 07:12 Chloride 99.2 mmol/L (98-107) 02/25/19 07:12 Carbon Dioxide 22 mmol/L (22-30) 02/25/19 07:12 18 mmol/L 02/25/19 07:12 BUN 17 mg/dL (9-20) 02/25/19 07:12 4.3 mg/dL (0.8-1.5) H 02/25/19 07:12 Estimated GFR 20 ml/min 02/25/19 07:12 4 % 02/25/19 07:12 Glucose 177 mg/dL (75-100) H 02/25/19 07:12 POC Glucose 125 (70-105) H 02/25/19 12:12 Calcium 8.1 mg/dL (8.4-10.2) L 02/25/19 07:12 Magnesium 1.80 mg/dL (1.7-2.3) 02/25/19 07:12 Iron 29 ug/dL (49-181) L 02/23/19 11:55 TIBC 181 mcg/dL (250-450) L 02/23/19 11:55 143.3 ng/mL (13.0-400.0) 02/23/19 11:55 0.90 mg/dL (0.1-1.2) 02/22/19 02:58 AST 21 units/L (5-40) 02/22/19 02:58 ALT 15 units/L (7-56) 02/22/19 02:58 70 units/L (35-129) 02/22/19 02:58 177 units/L (55-170) H 02/22/19 11:50 CK-MB (CK-2) 3.0 ng/mL (0.0-4.0) 02/22/19 11:50 CK-MB (CK-2) Rel Index 1.6 (0-4) 02/22/19 11:50 0.079 ng/mL (0.00-0.029) H 02/22/19 11:50 7.5 g/dL (6.3-8.2) 02/22/19 02:58 3.2 g/dL (3.9-5) L 02/22/19 02:58 0.7 % 02/22/19 02:58 Triglycerides 155 mg/dL (2-149) H 02/22/19 02:58 Cholesterol 128 mg/dL (50-199) 02/22/19 02:58 70 mg/dL (50-130) 02/22/19 02:58 40 mg/dL (40-59) 02/22/19 02:58 3.20 % 02/22/19 02:58 34 units/L (13-60) 02/22/19 02:58 Blood Type O POSITIVE 02/22/19 04:20 Antibody Screen Negative 02/22/19 04:20 Active Medications - Current Medications Current Medications: Generic Name Dose Route Start Last Admin Trade Name Freq PRN Reason Stop Dose Admin Acetaminophen 650 mg 02/22/19 05:47 Tylenol PO Q4H PRN Pain MILD(1-3)/Fever >100.5/CHOUDHARY Dextrose 50 ml 02/23/19 15:30 D50w (25gm) Syringe IV PRN PRN Hypoglycemia Epoetin Jv 10,000 unit 02/22/19 07:58 02/24/19 13:26 Procrit IV 10,000 unit TORY PRN Administration hemodialysis Hydralazine HCl 5 mg 02/22/19 05:53 02/24/19 14:29 Apresoline IV 5 mg Q6H PRN Administration Hypertension Sodium Chloride 100 mls @ 999 mls/hr 02/22/19 07:58 Nacl 0.9% IV TORY PRN Hypotension Sodium Chloride 1,000 mls @ 50 mls/hr 02/25/19 12:30 02/25/19 12:00 Nacl 0.9% 1000 Ml IV 50 mls/hr DIRECT SHIRA Administration Insulin Glargine 10 units 02/23/19 22:00 02/24/19 21:10 Lantus SUB-Q 10 units QHS SHIRA Administration Insulin Human Lispro 0 unit 02/23/19 16:30 02/25/19 13:29 Humalog SUB-Q Not Given ACHS [facility] Protocol Isosorbide Mononitrate 30 mg 02/23/19 11:00 02/25/19 10:00 Imdur PO 30 mg DAILY SHIRA Administration Labetalol HCl 200 mg 02/23/19 11:00 02/25/19 10:00 Normodyne PO 200 mg BID SHIRA Administration Metoclopramide HCl 5 mg 02/22/19 05:47 02/24/19 14:26 Reglan IV 5 mg Q6H PRN Administration Nausea And Vomiting Mirtazapine 15 mg 02/23/19 22:00 02/24/19 21:11 Remeron Solutab PO 15 mg QHS SHIRA Administration Morphine Sulfate 2 mg 02/22/19 05:47 02/25/19 05:14 Morphine IV 2 mg Q4H PRN Administration Pain, Moderate (4-6) Ondansetron HCl 4 mg 02/22/19 05:47 02/24/19 09:17 Zofran IV 4 mg Q4H PRN Administration Nausea And Vomiting Pantoprazole Sodium 40 mg 02/24/19 10:00 02/25/19 10:00 Protonix PO 40 mg BID SHIRA Administration Promethazine HCl 25 mg 02/22/19 05:47 02/22/19 06:12 Phenergan NV 25 mg Q6H PRN Administration N/V IF NPO AND NO IV ACCESS Sodium Chloride 10 ml 02/22/19 10:00 02/25/19 10:01 Sodium Chloride Flush Syringe 10 Ml IV 10 ml BID SHIRA Administration Sodium Chloride 10 ml 02/22/19 05:47 Sodium Chloride Flush Syringe 10 Ml IV PRN PRN LINE FLUSH Nutrition/Malnutrition Assess - Dietary Evaluation Nutrition/Malnutrition Findings: Nutrition Notes Start: 02/23/19 16:20 Freq: Status: Active Protocol: Document 02/23/19 16:20 RM (Rec: 02/23/19 16:31 RM [id number]) Nutrition Notes Need for Assessment generated from: cloud 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 NPO in place earlier. Clear liquid diet ordered later today. Pt stated that [employer] he did not eat d/t vomiting X 2 days. Noted lunch ate bedside w/most eaten. Pt admitted to being nauseous from eating the lunch but denied vomiting so far. Stated that he was supposed to receive a clear liquid meal but received solid instead. Unsure of dry wt. Pt stated that he is already familiar w/DM diet education. Burn Absent Trauma Absent #1 Nutrition Diagnosis Inadequate oral intake Etiology N/V As Evidenced by Signs and Symptoms pt on clear liquid diet Is patient on ventilator? No Is Patient Ambulatory and/or Out of Bed Yes REE-([place]-[facility]. or-ambulatory/OOB) [ 6815.919 NUTR.[id number]] Kcal/Kg value to use for calculation 19 Approximate Energy Requirements Using 2212 kcal/Kg Calculation Used for Recommendations Kcal/kg Additional Notes Protein Needs: 110-120g (1.2-1 .3g/kg 92kg adjBW) Fluid Needs: 1 ml/kcal Nutrition Intervention Change Diet Order: Advance diet when medically able Add Supplement/Snack (indicate name/kcal Ensure Clear 1 daily /protein ) Provides kCal: 240 Provides Protein (gm) 8 Goal #1 Diet advancement Anticipated Discharge Needs: Unable to determine at this time Follow-Up By: 02/25/19 Additional Comments Follow for PO and ONS intakes
--- NOTE | 2019-02-25 14:37 | Post Operative Note ---
Pre-op diagnosis: Anemia, hematemesis Post-op diagnosis: other (1. Emetogenic gastritis 2. Otherwise normal EGD and colonoscopy) Findings: 1. Moderate patch of erythema in gastric cardia. 2. Otherwise normal EGD. 3. Normal colonoscopy. Procedure: EGD/Colonoscopy [place]: [facility] [place] Surgeon: YUSUF BENEDICT Estimated blood loss: none Pathology: none Condition: stable Disposition: floor (1. Consider Hematology evaluation for anemia if desired 2. Okay to discharge pt from GI standpoint, and no further f/u needed.)
--- NOTE | 2019-02-25 15:57 | Operative Report ---
UPPER ENDOSCOPY AND COLONOSCOPY REPORT PROCEDURE: Upper endoscopy and colonoscopy. PREOPERATIVE DIAGNOSES: Anemia and history of coffee-ground emesis at home. POSTOPERATIVE DIAGNOSES: Emetogenic gastritis and normal colonoscopy. SEDATION: MAC by Anesthesia. HISTORY: The patient is a 33-year-old man who is HIV positive and diagnosed with end-stage renal disease a month and a half ago. He presented after vomiting repeatedly at home, initially watermelon and then possibly blood. Here, he has been anemic with a hemoglobin of 8.1 with iron of 29 and TIBC of 181. He also complains of right lower quadrant discomfort. DESCRIPTION OF PROCEDURE: Procedure, indications, risks, and benefits were explained and consent was obtained. The patient was placed in left lateral decubitus position and sedated. [employer] video upper endoscope was passed through the mouth and oropharynx into the descending duodenum. Scope was then gradually withdrawn with close inspection of mucosa. FINDINGS: 1. Normal appearing esophagus with sharp Z-line located at 40 cm. 2. A 2-3 cm patch of erythema in the gastric fundus consistent with emetogenic gastritis. 3. Otherwise, normal stomach. 4. Normal duodenal bulb and duodenum. 5. No evidence of bleeding source in stomach. The patient was subsequently rotated and a colonoscopy was performed. Colonoscope was passed through the rectum after digital examination and passed with moderate difficulty to the cecum, which was identified by the ileocecal valve and the appendiceal orifice. Scope was then gradually withdrawn with close inspection of the mucosa. Prep was fair with a coating of layers, relatively thick stool coating the right side of the colon. FINDINGS: Visualized colonic mucosa is normal appearing with no evidence of mass lesions, vascular lesions or inflammation. The patient tolerated the procedures well without immediate complication. IMPRESSION: 1. Mild erythema in gastric fundus consistent with emesis. 2. Otherwise, normal upper endoscopy. 3. Normal colonoscopy. 4. No evidence of bleeding source identified or of anemia identified. RECOMMENDATIONS: 1. Anemia, likely due to end-stage renal disease. May consider Hematology evaluation. 2. May advance diet and discharge to home from GI standpoint. 3. No further GI workup warranted at this point in time and no followup required. [facility]# [id number] HRC/NTS
[2019-02-25] MEDS: REMERON SOLUTAB PO SCH (22:55)
[2019-02-25] MEDS: LANTUS SUB-Q SCH (22:55)
[2019-02-25] MEDS: APRESOLINE PO SCH (22:55)
[2019-02-26] MEDS: APRESOLINE IV PRN ×2 (01:39→10:32)
[2019-02-26] MEDS ORDERED: ULTRAM PO PRN (03:19)
[2019-02-26] MEDS: HumaLOG SUB-Q SCH ×3 (07:40→12:47)
[2019-02-26 08:57] LABS: Hematocrit 26.9 % (35.5-45.6); Hemoglobin 9.2 gm/dl (11.8-15.2); Mean Corpuscular HGB Conc 34 % (32-34); Mean Corpuscular Volume 89 fl (84-94); Red Blood Count 3.03 M/mm3 (3.65-5.03)
[2019-02-26 09:20] LABS: Calcium 8.2 mg/dL (8.4-10.2)
[2019-02-26] MEDS ORDERED: PROTONIX PO SCH (10:00)
[2019-02-26] MEDS ORDERED: PERCOCET 5/325 PO ONE (10:08)
[2019-02-26] MEDS: NORMODYNE PO SCH (10:32)
[2019-02-26] MEDS: IMDUR PO SCH (10:32)
[2019-02-26] MEDS: APRESOLINE PO SCH ×2 (10:32→14:22)
[2019-02-26] MEDS: SODIUM CHLORIDE FLUSH SYRINGE 10 ML IV SCH (10:33)
[2019-02-26 10:44] LABS: Platelet Count 154 K/mm3 (140-440)
--- NOTE | 2019-02-26 11:11 | Progress Note ---
Assessment and Plan - Patient Problems (1) ESRD (end stage renal disease) Current Visit: No Status: Chronic Plan to address problem: Will continue him on a Thursday//Thursday inpatient hemodialysis schedule. Hemodialysis orders placed at this time. (2) Hematemesis Current Visit: Yes Status: Acute Plan to address problem: s/p EGD and colonoscopy with findings noted. (3) Hypertensive chronic kidney disease with stage 5 chronic kidney disease or end stage renal disease Current Visit: No Status: Chronic Plan to address problem: We will monitor closely on his current regimen. (4) HIV (human immunodeficiency virus infection) Current Visit: Yes Status: Chronic Qualifiers: Plan to address problem: Management per infectious disease attending. Subjective Date of service: 02/26/19 Interval history: No acute issues from renal standpoint. he had EGD and colonoscopy done which showed moderate area of erythema in the gastric cardia, otherwise no other acute abnormalities. Objective - Vital Signs Vital signs: Vital Signs - 12hr 02/25/19 02/25/19 02/26/19 23:49 23:51 01:39 Temperature 98.1 F Pulse Rate 102 H 114 H Respiratory 18 Rate Blood Pressure 186/97 191/105 O2 Sat by Pulse 96 Oximetry 02/26/19 02/26/19 02/26/19 04:54 04:55 08:16 Temperature 98.7 F 98.0 F Pulse Rate 105 H 106 H Respiratory 18 16 Rate Blood Pressure 180/97 184/108 O2 Sat by Pulse 96 97 Oximetry - General Appearance General appearance: well-developed, well-nourished, appears stated age, obese EENT: ATNC, PERRL Neck: no JVD, no thyromegaly Respiratory: Present: Clear to Ascultation, Normal Exam Cardiology: regular, normal heart rate, S1S2 Gastrointestinal: normal, normoactive bowel sounds Integumentary: no rash, warm and dry Neurologic: no focal deficit, alert and oriented x3, CN 3-12 intact Psychiatric: mood/affect appropriate, cooperative - Lab 02/26/19 08:21 02/26/19 08:21 Most recent lab results Calcium 8.2 mg/dL (8.4-10.2) L 02/26/19 08:21 Magnesium 1.80 mg/dL (1.7-2.3) 02/25/19 07:12 - Allied health notes Allied health notes reviewed: nursing Medications & Allergies - Medications Allergies/Adverse Reactions: Allergies Penicillins Allergy (Verified 02/11/19 14:13) Hives Home Medications: Home Medications Medication Instructions Recorded Confirmed Last Taken Type ISOSORBIDE MONOnitrate [Imdur ER] 30 mg PO DAILY #30 tablet 02/16/19 02/23/19 Unknown Rx Labetalol [Labetalol 200mg TAB] 200 mg PO BID #60 tablet 02/16/19 02/23/19 Unknown Rx Mirtazapine Solutab [Remeron 15mg 15 mg PO QHS #30 tab.rapdis 02/16/19 02/23/19 Unknown Rx Solutab] amLODIPine [Norvasc] 5 mg PO DAILY #30 tablet 02/16/19 02/23/19 Unknown Rx hydrALAZINE [Apresoline TAB] 100 mg PO TID #30 tab 02/16/19 02/23/19 Unknown Rx Active Medications: Generic Name Dose Route Start Last Admin Trade Name Freq PRN Reason Stop Dose Admin Acetaminophen 650 mg 02/22/19 05:47 02/25/19 17:41 Tylenol PO 650 mg Q4H PRN Administration Pain MILD(1-3)/Fever >100.5/CHOUDHARY Dextrose 50 ml 02/23/19 15:30 D50w (25gm) Syringe IV PRN PRN Hypoglycemia Epoetin Jv 10,000 unit 02/22/19 07:58 02/24/19 13:26 Procrit IV 10,000 unit TORY PRN Administration hemodialysis Hydralazine HCl 5 mg 02/22/19 05:53 02/26/19 10:32 Apresoline IV 5 mg Q6H PRN Administration Hypertension Hydralazine HCl 100 mg 02/25/19 20:00 02/26/19 10:32 Apresoline PO 100 mg TID SHIRA Administration Sodium Chloride 100 mls @ 999 mls/hr 02/22/19 07:58 Nacl 0.9% IV TORY PRN Hypotension Sodium Chloride 1,000 mls @ 50 mls/hr 02/25/19 12:30 02/25/19 12:00 Nacl 0.9% 1000 Ml IV 50 mls/hr DIRECT SHIRA Administration Insulin Glargine 10 units 02/23/19 22:00 08/02/19 22:55 Lantus SUB-Q Not Given QHS [facility] Insulin Human Lispro 0 unit 02/23/19 16:30 02/26/19 10:33 Humalog SUB-Q Not Given [facility] Protocol Isosorbide Mononitrate 30 mg 02/23/19 11:00 02/26/19 10:32 Imdur PO 30 mg DAILY SHIRA Administration Labetalol HCl 200 mg 02/23/19 11:00 02/26/19 10:32 Normodyne PO 200 mg BID SHIRA Administration Metoclopramide HCl 5 mg 02/22/19 05:47 02/24/19 14:26 Reglan IV 5 mg Q6H PRN Administration Nausea And Vomiting Mirtazapine 15 mg 02/23/19 22:00 02/25/19 22:55 Remeron Solutab PO 15 mg QHS [facility] Administration Ondansetron HCl 4 mg 02/22/19 05:47 02/24/19 09:17 Zofran IV 4 mg Q4H PRN Administration Nausea And Vomiting Pantoprazole Sodium 40 mg 02/26/19 10:00 02/26/19 10:32 Protonix PO 40 mg QDAY SHIRA Administration Promethazine HCl 25 mg 02/22/19 05:47 02/22/19 06:12 Phenergan [place] 25 mg Q6H PRN Administration N/V IF NPO AND NO IV ACCESS Sodium Chloride 10 ml 02/22/19 10:00 02/26/19 10:33 Sodium Chloride Flush Syringe 10 Ml IV 10 ml BID SHIRA Administration Sodium Chloride 10 ml 02/22/19 05:47 Sodium Chloride Flush Syringe 10 Ml IV PRN PRN LINE FLUSH Tramadol HCl 25 mg 02/26/19 03:19 Ultram PO Q4H PRN Pain, Moderate (4-6)
[2019-02-26] MEDS: PROCRIT IV PRN (14:41)
--- NOTE | 2019-02-26 14:55 | Discharge Summary ---
Providers - Providers Date of Admission: 02/22/19 05:47 Date of discharge: 02/26/19 Attending physician: DAXA DAVILA 02/22/19 04:48 Consult to Physician [CONS] Urgent Comment: Consulting Provider: [facility] Physician Instructions: Reason For Exam: gastroparesis, vomiting blood 02/22/19 05:53 Consult to Physician [CONS] Routine Comment: Consulting Provider: MARCO A RAZA Physician Instructions: Reason For Exam: hd [facility] Reason for admission: Hematemesis, hypertensive emergency Condition: Stable Pertinent studies: CT ABD/PELVIS: Possible mild enteritis Procedures: EGD/colonoscopy: Significant for gastritis, no overt bleeding Hospital course: Final discharge diagnosis: Hematemesis likely due to gastritis Hypertensive emergency with BP of 217/140 DM2 with hyperglycemia New systolic heart failure with EF of 40-45% per echo on 02/22 N/V/D, likely due to acute gastroenteritis Acute Lower abd pain, likely due to gastroenteritis Mild hypokalemia ESRD on HD Anemia of chronic dx due to ESRD/HIV HIV dx Chronic lower back pain Morbid obesity with BMI of 40.3 Hospital course: Pt was admitted and placed on IV Protonix with serial monitoring of his H&H as well as PRN antiemetics and analgesics for pain control. He also received antihypertensives for blood pressure control in addition to insulin regimen for the hyperglycemia. He continued his regularly scheduled hemodialysis, which was managed by the mold maintenance technician. Subsequently, he underwent EGD/colonoscopy without complications which showed gastritis without overt bleeding. Post- procedure, he was monitored without any adverse events and his H&H remained stable. He was then deemed stable for discharge with clinic follow-up. Disposition: - TO HOME OR SELFCARE Time spent for discharge: 38 minutes Core Measure Documentation - Palliative Care Palliative Care/ Comfort Measures: Not Applicable - Core Measures Any of the following diagnoses?: none Exam - Constitutional Vitals: Temp Pulse Resp BP Pulse Ox 98.8 F 100 H 18 130/68 97 02/26/19 11:10 02/26/19 13:00 02/26/19 11:10 02/26/19 13:00 02/26/19 08:16 General appearance: Present: no acute distress, obese - EENT Eyes: Present: PERRL, EOM intact ENT: hearing intact, clear oral mucosa - Neck Neck: Present: supple, normal ROM - Respiratory Respiratory effort: normal Respiratory: bilateral: CTA - Cardiovascular Rhythm: regular Heart Sounds: Present: S1 & S2. Absent: rub, click - Extremities Extremities: pulses symmetrical, No edema Peripheral Pulses: within normal limits - Abdominal General gastrointestinal: Present: soft, non-tender, non-distended, normal bowel sounds Male genitourinary: Present: deferred - Integumentary Integumentary: Present: clear, warm, dry - Musculoskeletal Musculoskeletal: gait normal, strength equal bilaterally - Psychiatric Psychiatric: appropriate mood/affect, intact judgment & insight - Neurologic Neurologic: CNII-XII intact, moves all extremities Plan Follow up with: [facility]ENNETH [facility] DAVID [Primary Care Provider] - 7 Days Forms: Accompanied Note Prescriptions: Ferrous Sulfate [Feosol 325 MG tab] 325 mg PO QDAY #30 tablet oxyCODONE /ACETAMINOPHEN [Percocet 5/325] 1 tab PO Q6HR PRN #12 tablet PRN Reason: Pain , Severe (7-10) Pantoprazole [Protonix TAB] 40 mg PO QDAY #30 tablet Ondansetron [Zofran Odt] 4 mg PO Q8HR PRN #20 tab.rapdis PRN Reason: Nausea
[2019-02-26 15:07] VITALS: BP 108/56
== END 2019-02-26 16:00 | disposition home or self-care (01) | DRG 377 ==
LOC: ED 02:16 → 4A 05:47
PROVIDERS: ADMIT Internal Medicine; ATTEND Internal Medicine
PROC: 5A1D70Z Performance of Urinary Filtration, Intermittent, Less than 6 Hours Per Day (ICD-10-PCS; 2019-02-22)
PROC: 5A1D70Z Performance of Urinary Filtration, Intermittent, Less than 6 Hours Per Day (ICD-10-PCS; 2019-02-24)
PROC: 0DJ08ZZ Inspection of Upper Intestinal Tract, Via Natural or Artificial Opening Endoscopic (ICD-10-PCS; principal; 2019-02-25)
PROC: 0DJD8ZZ Inspection of Lower Intestinal Tract, Via Natural or Artificial Opening Endoscopic (ICD-10-PCS; 2019-02-25)
PROC: 5A1D70Z Performance of Urinary Filtration, Intermittent, Less than 6 Hours Per Day (ICD-10-PCS; 2019-02-26)
DX: K29.71 Gastritis, unspecified, with bleeding (principal); N18.6 End stage renal disease; B20 Human immunodeficiency virus [HIV] disease; I50.20 Unspecified systolic (congestive) heart failure; I13.2 Hypertensive heart and chronic kidney disease with heart failure and with stage 5 chronic kidney disease, or end stage renal disease; I16.1 Hypertensive emergency; Z68.41 Body mass index [BMI] 40.0-44.9, adult; K52.9 Noninfective gastroenteritis and colitis, unspecified; K31.84 Gastroparesis; E11.22 Type 2 diabetes mellitus with diabetic chronic kidney disease; E11.65 Type 2 diabetes mellitus with hyperglycemia; E87.6 Hypokalemia; G89.29 Other chronic pain; M54.5 Low back pain; E11.43 Type 2 diabetes mellitus with diabetic autonomic (poly)neuropathy; D63.1 Anemia in chronic kidney disease; E66.01 Morbid (severe) obesity due to excess calories; Z90.49 Acquired absence of other specified parts of digestive tract; Z88.0 Allergy status to penicillin; Z99.2 Dependence on renal dialysis; Z83.3 Family history of diabetes mellitus; Z79.4 Long term (current) use of insulin; Z79.899 Other long term (current) drug therapy
CPT/HCPCS: 36415; 74176; 80048; 80053; 80061; 82550; 82553; 82728; 82962; 83550; 83690; 83735; 84484; 85014; 85018; 85025; 85027; 85610; 85730; 86850; 86900; 86901; 93005; 93010; 93306; 96365; 96366; 96375; G0378; C9113; J0360; J0885; J1170; J1815; J2250; J2270; J2405; J2704; J2765; J3480; J7030

== ENCOUNTER 2019-03-01 07:05 | Inpatient (IN) | payer OTHER ==
[2019-03-01 07:45] LABS: Basophils # (Auto) 0.1 K/mm3 (0.0-0.1); Basophils % (Auto) 1.3 % (0.0-1.8); Eosinophils % (Auto) 0.3 % (0.0-4.3); Hematocrit 32.3 % (35.5-45.6); Hemoglobin 11.3 gm/dl (11.8-15.2); Lymphocytes # (Auto) 1.7 K/mm3 (1.2-5.4); Lymphocytes % (Auto) 17.3 % (13.4-35.0); Mean Corpuscular HGB Conc 35 % (32-34); Mean Corpuscular Volume 88 fl (84-94); Monocytes # (Auto) 0.3 K/mm3 (0.0-0.8); Monocytes % (Auto) 2.8 % (0.0-7.3); Platelet Count 521 K/mm3 (140-440); Red Blood Count 3.69 M/mm3 (3.65-5.03); Red Cell Distribution Width 14.3 % (13.2-15.2)
--- NOTE | 2019-03-01 07:59 | Emergency Department Report ---
HPI - General Chief Complaint: GI Bleed Time Seen by Provider: 03/01/19 07:22 - HPI HPI: 33-year-old male presents to the emergency department with complaint of abdominal pain, nausea, vomiting and hematemesis. The abdominal pain is on his right side and he says that "it feels like it's near my kidneys." He has a past medical history of HIV or diabetes, gastroparesis and end-stage renal disease on hemodialysis. The patient was admitted to this hospital last week for the same symptoms and he underwent an EGD that showed some emetogenic gastritis. The patient gets dialysis on Thursday//Thursday and did have it on Thursday, 3 days ago. He has not taken anything for his symptoms prior to presentation today. ED Past Medical Hx - Past Medical History Previous Medical History?: Yes Hx Hypertension: Yes Hx Congestive Heart Failure: No Hx Diabetes: Yes Hx Renal Disease: Yes (Thu, , Thu) Hx Asthma: No Hx COPD: No Hx HIV: Yes Additional medical history: HIV. gastroparesis - Surgical History Past Surgical History?: Yes Hx Cholecystectomy: Yes Additional Surgical History: PORT IN CHEST - Social History Smoking Status: Never Smoker Substance Use Type: None - Medications Home Medications: Home Medications Medication Instructions Recorded Confirmed Last Taken Type ISOSORBIDE MONOnitrate [Imdur ER] 30 mg PO DAILY #30 tablet 02/16/19 02/23/19 Unknown Rx Labetalol [Labetalol 200mg TAB] 200 mg PO BID #60 tablet 02/16/19 02/23/19 Unknown Rx Mirtazapine Solutab [Remeron 15mg 15 mg PO QHS #30 tab.rapdis 02/16/19 02/23/19 Unknown Rx Solutab] amLODIPine [Norvasc] 5 mg PO DAILY #30 tablet 02/16/19 02/23/19 Unknown Rx hydrALAZINE [Apresoline TAB] 100 mg PO TID #30 tab 02/16/19 02/23/19 Unknown Rx Ferrous Sulfate [Feosol 325 MG tab] 325 mg PO QDAY #30 tablet 02/26/19 Unknown Rx Ondansetron [Zofran Odt] 4 mg PO Q8HR PRN #20 tab.rapdis 02/26/19 Unknown Rx Pantoprazole [Protonix TAB] 40 mg PO QDAY #30 tablet 02/26/19 Unknown Rx oxyCODONE /ACETAMINOPHEN [Percocet 1 tab PO Q6HR PRN #12 tablet 02/26/19 Unknown Rx 5/325] ED Review of Systems ROS: Stated complaint: VOMITING BLOOD/KIDNEY PAIN Other details as noted in HPI Comment: All other systems reviewed and negative Constitutional: denies: chills, fever Eyes: denies: eye pain, vision change ENT: denies: ear pain, throat pain Respiratory: denies: cough, shortness of breath Cardiovascular: denies: chest pain, palpitations Gastrointestinal: abdominal pain, nausea, vomiting, hematemesis Genitourinary: denies: dysuria, discharge Musculoskeletal: denies: back pain, arthralgia Skin: denies: rash, lesions Neurological: denies: headache, weakness Physical Exam - Physical Exam Vital Signs: Vital Signs 03/01/19 03/01/19 07:06 07:10 Pulse Rate 130 H Respiratory 20 Rate Blood Pressure 249/160 [Right] O2 Sat by Pulse 98 Oximetry Physical Exam: GENERAL: Patient is ill-appearing. He is actively vomiting. HENT: Normocephalic. Atraumatic. Patient has moist mucous membranes. EYES: Extraocular motions are intact. Pupils equal reactive to light bilaterally. NECK: Supple. Trachea is midline. CHEST/LUNGS: Clear to auscultation. There is no respiratory distress noted. HEART/CARDIOVASCULAR: Regular. There is no tachycardia. There is no murmur. ABDOMEN: Abdomen is soft. Mild epigastric tenderness to palpation. No guarding. Patient has normal bowel sounds. There is no abdominal distention. SKIN: Skin is warm and dry. NEURO: The patient is awake, alert, and oriented. The patient is cooperative. The patient has no focal neurologic deficits. The patient has normal speech. MUSCULOSKELETAL: There is no tenderness or deformity. There is no evidence of acute injury. ED Course Vital Signs 03/01/19 03/01/19 07:06 07:10 Pulse Rate 130 H Respiratory 20 Rate Blood Pressure 249/160 [Right] O2 Sat by Pulse 98 Oximetry - Consultations Consultation #1: 03/01/19 09:04 I spoke with the patient's home decorator, Dr. Carr, who will see the patient as a consult. Dr. Carr also has recommended D5 water to be started at 75 mL per hour. ED Medical Decision Making - Lab Data Result diagrams: 03/01/19 07:28 03/01/19 07:28 - EKG Data -: EKG Interpreted by Me EKG shows normal: sinus rhythm, axis, intervals, QRS complexes, ST-T waves Rate: tachycardia (101 bpm) - EKG Data When compared to previous EKG there are: previous EKG unavailable Interpretation: normal EKG - Medical Decision Making This patient presents to the emergency department with a continuation of his recent nausea, vomiting, abdominal pain and hematemesis. He has end-stage renal disease and due for dialysis today. He was given some pain medication and antiemetics. Labs show severe hypernatremia with a sodium of 179. No obvious EKG changes. No hyperkalemia. I spoke with nephrology who asked for D5 water to be started at about 75 mL per hour and the patient was arranged for urgent dialysis. Patient will be admitted to the hospital for further evaluation and treatment was accepted for admission by the hospitalist service. - Differential Diagnosis hyperkalemia, hypernatremia, food poisoning, esophageal varices Critical Care Time: No Critical care attestation.: If time is entered above; I have spent that time in minutes in the direct care of this critically ill patient, excluding procedure time. ED Disposition Clinical Impression: CKD (chronic kidney disease) requiring chronic dialysis, Gastroparesis, Acute hypernatremia Hematemesis Qualifiers: Nausea presence: with nausea Qualified Code(s): K92.0 - Hematemesis Disposition: 09 OP ADMIT IP TO THIS HOSP Is pt being admited?: Yes Condition: Fair Time of Disposition: 14:18
[2019-03-01 08:01] LABS: INR 1.02 (0.87-1.13)
[2019-03-01 08:02] LABS: Partial Thromboplastin Time 25.6 Sec. (24.2-36.6)
[2019-03-01 08:10] LABS: Alanine Aminotransferase 11 units/L (7-56); Albumin 3.7 g/dL (3.9-5)
[2019-03-01] MEDS ORDERED: ZOFRAN IV ONE (08:12)
[2019-03-01 08:13] LABS: Bilirubin,Direct < 0.2 mg/dL (0-0.2)
[2019-03-01] MEDS ORDERED: MORPHINE IV ONE (08:13)
[2019-03-01 08:19] LABS: Calcium 10.1 mg/dL (8.4-10.2)
[2019-03-01] MEDS ORDERED: REGLAN IV ONE (08:51)
[2019-03-01] MEDS: D5W 1,000 ML IV SCH ×2 (09:29→18:08)
[2019-03-01] MEDS ORDERED: APRESOLINE IV ONE (09:33)
--- NOTE | 2019-03-01 09:54 | History and Physical Report ---
History of Present Illness Date of examination: 03/01/19 Date of admission: 03/01/19 Chief complaint: abd pain, n/v History of present illness: 33-year-old male presents to the emergency department with complaint of abdominal pain, nausea, vomiting and hematemesis. The abdominal pain is on his right side and he says that "it feels like it's near my kidneys." He has a past medical history of HIV, diabetes, gastroparesis and end-stage renal disease on hemodialysis. The patient was admitted to this hospital last week for the same symptoms and he underwent an EGD that showed gastritis. The patient gets dialysis on Thursday//Thursday and did have it on Thursday, 3 days ago. He has not taken anything for his symptoms prior to presentation today. Past History Past Medical History: diabetes, HIV/AIDS, renal failure, other (gastroparesis, gastritis) Past Surgical History: No surgical history Social history: no significant social history Family history: no significant family history Medications and Allergies Allergies Allergy/AdvReac Type Severity Reaction Status Date / Time Penicillins Allergy Hives Verified 02/11/19 14:13 Home Medications Medication Instructions Recorded Confirmed Last Taken Type ISOSORBIDE MONOnitrate [Imdur ER] 30 mg PO DAILY #30 tablet 02/16/19 02/23/19 Unknown Rx Labetalol [Labetalol 200mg TAB] 200 mg PO BID #60 tablet 02/16/19 02/23/19 Unknown Rx Mirtazapine Solutab [Remeron 15mg 15 mg PO QHS #30 tab.rapdis 02/16/19 02/23/19 Unknown Rx Solutab] amLODIPine [Norvasc] 5 mg PO DAILY #30 tablet 02/16/19 02/23/19 Unknown Rx hydrALAZINE [Apresoline TAB] 100 mg PO TID #30 tab 02/16/19 02/23/19 Unknown Rx Ferrous Sulfate [Feosol 325 MG tab] 325 mg PO QDAY #30 tablet 02/26/19 Unknown Rx Ondansetron [Zofran Odt] 4 mg PO Q8HR PRN #20 tab.rapdis 02/26/19 Unknown Rx Pantoprazole [Protonix TAB] 40 mg PO QDAY #30 tablet 02/26/19 Unknown Rx oxyCODONE /ACETAMINOPHEN [Percocet 1 tab PO Q6HR PRN #12 tablet 02/26/19 Unknown Rx 5/325] Active Meds: Active Medications Dextrose (D5w) 1,000 mls @ 75 mls/hr IV DIRECT SHIRA Last Admin: 03/01/19 09:29 Dose: 75 mls/hr Documented by: Review of Systems All systems: negative Exam - Constitutional Vitals: Temp Pulse Resp BP Pulse Ox 105 H 23 210/122 100 03/01/19 09:36 03/01/19 09:00 03/01/19 09:36 03/01/19 09:00 General appearance: Present: no acute distress, well-nourished - EENT Eyes: Present: PERRL ENT: hearing intact, clear oral mucosa - Neck Neck: Present: supple, normal ROM - Respiratory Respiratory effort: normal Respiratory: bilateral: CTA - Cardiovascular Heart Sounds: Present: S1 & S2. Absent: rub, click - Extremities Extremities: pulses symmetrical, No edema Peripheral Pulses: within normal limits - Abdominal General gastrointestinal: Present: soft, non-tender, non-distended, normal bowel sounds Male genitourinary: Present: normal - Integumentary Integumentary: Present: clear, warm, dry - Musculoskeletal Musculoskeletal: gait normal, strength equal bilaterally - Psychiatric Psychiatric: appropriate mood/affect, intact judgment & insight - Neurologic Neurologic: CNII-XII intact, moves all extremities Results - Labs CBC & Chem 7: 03/01/19 07:28 03/01/19 07:28 Labs: Laboratory Last Values WBC 9.9 K/mm3 (4.5-11.0) 03/01/19 07:28 RBC 3.69 M/mm3 (3.65-5.03) 03/01/19 07:28 Hgb 11.3 gm/dl (11.8-15.2) L 03/01/19 07:28 Hct 32.3 % (35.5-45.6) L 03/01/19 07:28 MCV 88 fl (84-94) 03/01/19 07:28 MCH 31 pg (28-32) 03/01/19 07:28 MCHC 35 % (32-34) H 03/01/19 07:28 RDW 14.3 % (13.2-15.2) 03/01/19 07:28 Plt Count 521 K/mm3 (140-440) H D 03/01/19 07:28 Lymph % (Auto) 17.3 % (13.4-35.0) 03/01/19 07:28 [place] % (Auto) 2.8 % (0.0-7.3) 03/01/19 07:28 Eos % (Auto) 0.3 % (0.0-4.3) 03/01/19 07:28 Baso % (Auto) 1.3 % (0.0-1.8) 03/01/19 07:28 Lymph # 1.7 K/mm3 (1.2-5.4) 03/01/19 07:28 [place] # 0.3 K/mm3 (0.0-0.8) 03/01/19 07:28 Eos # 0.0 K/mm3 (0.0-0.4) 03/01/19 07:28 Baso # 0.1 K/mm3 (0.0-0.1) 03/01/19 07:28 Seg Neutrophils % 78.3 % (40.0-70.0) H 03/01/19 07:28 Seg Neutrophils # 7.8 K/mm3 (1.8-7.7) H 03/01/19 07:28 PT 13.1 Sec. (12.2-14.9) 03/01/19 07:28 INR 1.02 (0.87-1.13) 03/01/19 07:28 APTT 25.6 Sec. (24.2-36.6) 03/01/19 07:28 Sodium 176 mmol/L (137-145) H* D 03/01/19 07:28 Potassium 4.9 mmol/L (3.6-5.0) D 03/01/19 07:28 Chloride 121.7 mmol/L (98-107) H 03/01/19 07:28 Carbon Dioxide 24 mmol/L (22-30) 03/01/19 07:28 30 mmol/L 03/01/19 07:28 BUN 44 mg/dL (9-20) H 03/01/19 07:28 8.8 mg/dL (0.8-1.5) H D 03/01/19 07:28 Estimated GFR 9 ml/min 03/01/19 07:28 5 % 03/01/19 07:28 Glucose 185 mg/dL (75-100) H 03/01/19 07:28 Calcium 10.1 mg/dL (8.4-10.2) D 03/01/19 07:28 0.70 mg/dL (0.1-1.2) 03/01/19 07:28 < 0.2 mg/dL (0-0.2) 03/01/19 07:28 0.5 mg/dL 03/01/19 07:28 AST 17 units/L (5-40) 03/01/19 07:28 ALT 11 units/L (7-56) 03/01/19 07:28 76 units/L (35-129) 03/01/19 07:28 8.1 g/dL (6.3-8.2) 03/01/19 07:28 3.7 g/dL (3.9-5) L 03/01/19 07:28 0.8 % 03/01/19 07:28 Assessment and Plan Assessment and plan: Severe hypernatremia. Nephrology has been consulted. Hematemesis -Recent EGD completed approximately a week ago revealed Emetogenic gastritis -Continue PPI -Consult GI for further evaluation N/V -Likely due to acute gastroparesis exacerbation -Continue Reglan Acute Lower abd pain -likely due to gastroenteritis ESRD on HD -Nephrology consulted Anemia of chronic dx due to ESRD/HIV -On Epogen, will monitor H/H Hypertension. IV prn medications given the vomiting. DM2 with hyperglycemia on admission -Blood glucose controlled on current insulin regimen, we will monitor New systolic heart failure with EF of 40-45% per echo on 02/22 -No acute exacerbation
[2019-03-01] MEDS ORDERED: TYLENOL PO PRN (10:13)
[2019-03-01] MEDS ORDERED: SODIUM CHLORIDE FLUSH SYRINGE 10 ML IV PRN (10:13)
[2019-03-01] MEDS ORDERED: D50W (25GM) Syringe IV PRN (10:13)
[2019-03-01] MEDS ORDERED: NACL 0.9% 100 ML IV PRN (10:30)
[2019-03-01] MEDS: ZOFRAN IV PRN ×2 (11:19→22:59)
[2019-03-01] MEDS ORDERED: HumuLIN R ONE (11:52)
[2019-03-01] MEDS: HumuLIN R SUB-Q SCH ×2 (12:06→20:51)
[2019-03-01] MEDS ORDERED: MORPHINE IM ONE (13:00)
--- NOTE | 2019-03-01 13:50 | Gastroenterology Consultation ---
History of Present Illness - Reason for Consult Consult date: 03/01/19 hematemesis Requesting physician: NIGEL SAMUEL - History of Present Illness Patient is a 33 y/o male with PMH of HTN, PUD? (01/12 in [place] per pt), DM (uncontrolled), gastroparesis, HIV, anemia of chronic disease, and ESRD (began HD 12/2018) who presented to ED with c/o right sided pain, saying "it feels like its near my kidneys" with associated N/V with hematemesis. Upon admission he was found to be to have severe hypernatremia to which he was admitted (nephrology following). GI has been consulted for hematemesis. Patient is previously known to our service from a consult just last week for similar symptoms and underwent an EGD/colonoscopy by Dr. Mccullough on 02/25/19 that revealed emetogenic gastritis, otherwise normal. This afternoon patient was resting on bed receiving dialysis w/o acute distress. Reports 1 episode of hematemesis with a small amount of dark bloody emesis yesterday but no further signs of bleeding. Admits to some continued right flank discomfort and N/V today, howvever emesis is clear non- bloody. Denies fever, CP, SOB, wt loss, melena, diarrhea, constipation, or hematochezia. s/p CCY. Past History Past Medical History: other (as per HPI) Past Surgical History: cholecystectomy, Other (R IJ catheter for dialysis, Laminectomy in 2017 due to infection related to skin abscesses) Social history: denies: smoking, alcohol abuse Family history: no significant family history Medications and Allergies Allergies Allergy/AdvReac Type Severity Reaction Status Date / Time Penicillins Allergy Hives Verified 02/11/19 14:13 Home Medications Medication Instructions Recorded Confirmed Last Taken Type ISOSORBIDE MONOnitrate [Imdur ER] 30 mg PO DAILY #30 tablet 02/16/19 02/23/19 Unknown Rx Labetalol [Labetalol 200mg TAB] 200 mg PO BID #60 tablet 02/16/19 02/23/19 Unknown Rx Mirtazapine Solutab [Remeron 15mg 15 mg PO QHS #30 tab.rapdis 02/16/19 02/23/19 Unknown Rx Solutab] amLODIPine [Norvasc] 5 mg PO DAILY #30 tablet 02/16/19 02/23/19 Unknown Rx hydrALAZINE [Apresoline TAB] 100 mg PO TID #30 tab 02/16/19 02/23/19 Unknown Rx Ferrous Sulfate [Feosol 325 MG tab] 325 mg PO QDAY #30 tablet 02/26/19 Unknown Rx Ondansetron [Zofran Odt] 4 mg PO Q8HR PRN #20 tab.rapdis 02/26/19 Unknown Rx Pantoprazole [Protonix TAB] 40 mg PO QDAY #30 tablet 02/26/19 Unknown Rx oxyCODONE /ACETAMINOPHEN [Percocet 1 tab PO Q6HR PRN #12 tablet 02/26/19 Unk nown Rx 5/325] Active Meds: Active Medications Acetaminophen (Tylenol) 650 mg PO Q4H PRN PRN Reason: Pain MILD(1-3)/Fever >100.5/CHOUDHARY Dextrose (D50w (25gm) Syringe) 50 ml IV PRN PRN PRN Reason: Hypoglycemia Dextrose (D5w) 1,000 mls @ 75 mls/hr IV DIRECT SHIRA Last Admin: 03/01/19 09:29 Dose: 75 mls/hr Documented by: Sodium Chloride (Nacl 0.9%) 100 mls @ 999 mls/hr IV TORY PRN PRN Reason: Hypotension Insulin Human Regular (Humulin R) 0 units SUB-Q Q6HR [facility]; Protocol Last Admin: 03/01/19 12:06 Dose: 3 units Documented by: Ondansetron HCl (Zofran) 4 mg IV Q8H PRN PRN Reason: Nausea And Vomiting Last Admin: 03/01/19 11:19 Dose: 4 mg Documented by: Sodium Chloride (Sodium Chloride Flush Syringe 10 Ml) 10 ml IV BID SHIRA Sodium Chloride (Sodium Chloride Flush Syringe 10 Ml) 10 ml IV PRN PRN PRN Reason: LINE FLUSH medications reviewed/updated as required Review of Systems - Review of Systems All systems: negative Gastrointestinal: nausea, vomiting, hematemesis, other (right flank pain) Exam - Constitutional Vital Signs: Temp Pulse Resp BP Pulse Ox 115 H 20 104/68 97 03/01/19 13:46 03/01/19 09:30 03/01/19 13:46 03/01/19 09:30 General appearance: no acute distress, obese - EENT Eyes: PERRL, EOM intact ENT: hearing intact - Respiratory Respiratory effort: normal - Cardiovascular Rhythm: other (tachycardia) - Gastrointestinal General gastrointestinal: Present: soft, non-tender, non-distended, normal bowel sounds - Neurologic Neurological: alert and oriented x3 - Labs CBC & Chem 7: 03/01/19 07:28 03/01/19 07:28 Lab Results: Laboratory Results - last 24 hr 03/01/19 03/01/19 03/01/19 07:28 07:28 07:28 WBC 9.9 RBC 3.69 Hgb 11.3 L Hct 32.3 L MCV 88 MCH 31 MCHC 35 H RDW 14.3 Plt Count 521 H D Lymph % (Auto) 17.3 [place] % (Auto) 2.8 Eos % (Auto) 0.3 Baso % (Auto) 1.3 Lymph # 1.7 [place] # 0.3 Eos # 0.0 Baso # 0.1 Seg Neutrophils % 78.3 H Seg Neutrophils # 7.8 H PT 13.1 INR 1.02 APTT 25.6 Sodium 176 H* D Potassium 4.9 D Chloride 121.7 H Carbon Dioxide 24 Anion Gap 30 BUN 44 H Creatinine 8.8 H D Estimated GFR 9 BUN/Creatinine Ratio 5 Glucose 185 H Calcium 10.1 D Total Bilirubin Direct Bilirubin Indirect Bilirubin AST ALT Alkaline Phosphatase Total Protein Albumin Albumin/Globulin Ratio 03/01/19 07:28 WBC RBC Hgb Hct MCV MCH MCHC RDW Plt Count Lymph % (Auto) [place] % (Auto) Eos % (Auto) Baso % (Auto) Lymph # [place] # Eos # Baso # Seg Neutrophils % Seg Neutrophils # PT INR APTT Sodium Potassium Chloride Carbon Dioxide Anion Gap BUN Creatinine Estimated GFR BUN/Creatinine Ratio Glucose Calcium Total Bilirubin 0.70 Direct Bilirubin < 0.2 Indirect Bilirubin 0.5 AST 17 ALT 11 Alkaline Phosphatase 76 Total Protein 8.1 Albumin 3.7 L Albumin/Globulin Ratio 0.8 Assessment and Plan 1.hematemesis 2.N/V 3.chronic anemia (ESRD/HIV) 4.hx of gastroparesis 5.DM (uncontrolled) -afebrile -WBC WNL -LFTs WNL -abd CT 02/22/19 reviewed; s/p CCY -H/H 11.3/32.3 (improved from prior admission) -continue to monitor H/H and transfuse as needed -patient reports recurrent N/V with 1 episode of hematemesis yesterday with a small amount of dark bloody emesis which has now resolved with emesis today being clear in color. No melena or hematochezia. -EGD/colonoscopy on 02/25/19 showed emetogenic gastritis but otherwise normal -etiology of recurrent N/V likely multifactorial with uncontrolled DM/gastroparesis, metabolic derangement, etc. -no plan for repeat scope at this time unless overt bleeding develops, given improved H/H and no clinical evidence of significant GI bleeding -start on PPI -diet as tolerated (small frequent meals) -optimize glycemic control -limit narcotics for this may exacerbate symptoms -continue antiemetic and supportive care -no further GI recommendations at this time -will sign off, please call if needed 6.ESRD on HD 7.severe hypernatremia -management per nephrology
[2019-03-01] MEDS: PROTONIX IV SCH (18:09)
--- NOTE | 2019-03-01 18:29 | Consultation ---
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 His last HD session was on Thursday prior to his discharge. He had a complete GI work up done during his recent visit, including EGD and colonoscopy which did no t show any acute abnormalities or any evidence of active GI bleed. Patient was seen this am in the HD unit Past History Past Medical History: HIV/AIDS, other (as per HPI) Past Surgical History: cholecystectomy, Other (R IJ catheter for dialysis, Laminectomy in 2017 due to infection related to skin abscesses) Social history: denies: smoking, alcohol abuse Family history: no significant family history Medications and Allergies Allergies Allergy/AdvReac Type Severity Reaction Status Date / Time Penicillins Allergy Hives Verified 02/11/19 14:13 Home Medications Medication Instructions Recorded Confirmed Last Taken Type RX: ISOSORBIDE MONOnitrate [Imdur 30 mg PO DAILY #30 tablet 02/16/19 02/23/19 Unknown Rx ER] RX: Labetalol [Labetalol 200mg TAB] 200 mg PO BID #60 tablet 02/16/19 02/23/19 Unknown Rx RX: Mirtazapine Solutab [Remeron 15 mg PO QHS #30 tab.rapdis 02/16/19 02/23/19 Unknown Rx 15mg Solutab] RX: amLODIPine [Norvasc] 5 mg PO DAILY #30 tablet 02/16/19 02/23/19 Unknown Rx RX: hydrALAZINE [Apresoline TAB] 100 mg PO TID #30 tab 02/16/19 02/23/19 Unknown Rx Ondansetron [Zofran Odt] 4 mg PO Q8HR PRN #20 tab.rapdis 02/26/19 Unknown Rx RX: Ferrous Sulfate [Feosol 325 MG 325 mg PO QDAY #30 tablet 02/26/19 Unknown Rx tab] RX: Pantoprazole [Protonix TAB] 40 mg PO QDAY #30 tablet 02/26/19 Unknown Rx oxyCODONE /ACETAMINOPHEN [Percocet 1 tab PO Q6HR PRN #12 tablet 02/26/19 Unknown Rx 5/325] Active Meds: Active Medications Acetaminophen (Tylenol) 650 mg PO Q4H PRN PRN Reason: Pain MILD(1-3)/Fever >100.5/CHOUDHARY Dextrose (D50w (25gm) Syringe) 50 ml IV PRN PRN PRN Reason: Hypoglycemia Dextrose (D5w) 1,000 mls @ 75 mls/hr IV DIRECT SHIRA Last Admin: 03/01/19 18:08 Dose: 75 mls/hr Documented by: Sodium Chloride (Nacl 0.9%) 100 mls @ 999 mls/hr IV TORY PRN PRN Reason: Hypotension Insulin Human Regular (Humulin R) 0 units SUB-Q Q6HR [facility]; Protocol Last Admin: 03/01/19 12:06 Dose: 3 units Documented by: Ondansetron HCl (Zofran) 4 mg IV Q8H PRN PRN Reason: Nausea And Vomiting Last Admin: 03/01/19 11:19 Dose: 4 mg Documented by: Pantoprazole Sodium (Protonix) 40 mg IV QDAY [facility] Last Admin: 03/01/19 18:09 Dose: 40 mg Documented by: Sodium Chloride (Sodium Chloride Flush Syringe 10 Ml) 10 ml IV BID [facility] Sodium Chloride (Sodium Chloride Flush Syringe 10 Ml) 10 ml IV PRN PRN PRN Reason: LINE FLUSH Review of Systems All systems: negative Constitutional: fatigue, weakness, poor appetite Gastrointestinal: nausea, vomiting Exam - Vital Signs Vital signs: Vital Signs Pulse Resp Pulse Ox 130 H 20 98 03/01/19 07:06 03/01/19 07:06 03/01/19 07:06 - General Appearance General appearance: well-developed, well-nourished, appears stated age, obese EENT: ATNC, PERRL Neck: Present: neck supple, trachea midline Respiratory: Clear to Ascultation Heart: regular, S1S2 Gastrointestinal: Present: normal, normoactive bowel sounds Integumentary: no rash, warm and dry Neurologic: no focal deficit, no asterixis, alert and oriented x3 Psychiatric: mood/affect appropriate Results - Lab Results 03/01/19 07:28 03/01/19 07:28 Most recent lab results Calcium 10.1 mg/dL (8.4-10.2) D 03/01/19 07:28 Assessment and Plan - Patient Problems (1) ESRD (end stage renal disease) Current Visit: No Status: Chronic Plan to address problem: Will maintain patient on inpatient T// dialysis schedule. (2) Acute hypernatremia Current Visit: Yes Status: Acute Plan to address problem: In the setting of poor oral intake and overall dehydration in this patient who has been having persistent nausea/vomiting. Initiated on D5W at 75 cc/hr. Will monitor closely. (3) Hypertensive chronic kidney disease with stage 5 chronic kidney disease or end stage renal disease Current Visit: No Status: Chronic Plan to address problem: Will continue patient on current regimen and monitor closely (4) Abdominal pain Current Visit: Yes Status: Acute Plan to address problem: Unclear etiology in the setting of recent GI evaluation with EGD and colonoscopy. Will continue to monitor. Symptom control per primary team. (5) HIV (human immunodeficiency virus infection) Current Visit: No Status: Chronic Qualifiers: Plan to address problem: Continue current HAART therapy per ID recommendations.
[2019-03-02] MEDS: SODIUM CHLORIDE FLUSH SYRINGE 10 ML IV SCH ×2 (00:39→14:26)
[2019-03-02] MEDS: HumuLIN R SUB-Q SCH ×3 (00:39→12:00)
[2019-03-02] MEDS ORDERED: TORADOL IV ONE (00:43)
[2019-03-02 06:11] LABS: Calcium 8.5 mg/dL (8.4-10.2)
[2019-03-02 06:51] LABS: Basophils # (Auto) 0.1 K/mm3 (0.0-0.1); Basophils % (Auto) 0.9 % (0.0-1.8); Eosinophils # (Auto) 0.1 K/mm3 (0.0-0.4); Eosinophils % (Auto) 1.2 % (0.0-4.3); Hematocrit 27.8 % (35.5-45.6); Hemoglobin 9.3 gm/dl (11.8-15.2); Lymphocytes # (Auto) 1.4 K/mm3 (1.2-5.4); Lymphocytes % (Auto) 24.2 % (13.4-35.0); Mean Corpuscular HGB Conc 34 % (32-34); Mean Corpuscular Volume 89 fl (84-94); Monocytes # (Auto) 0.5 K/mm3 (0.0-0.8); Monocytes % (Auto) 7.6 % (0.0-7.3); Platelet Count 347 K/mm3 (140-440); Red Blood Count 3.14 M/mm3 (3.65-5.03); Red Cell Distribution Width 14.2 % (13.2-15.2)
[2019-03-02] MEDS: PROTONIX IV SCH (09:50)
--- NOTE | 2019-03-02 10:18 | Discharge Summary ---
Providers - Providers Date of Admission: 03/01/19 08:52 Date of discharge: 03/02/19 Attending physician: NIGEL SAMUEL 03/01/19 08:22 Consult to Physician [CONS] Routine Comment: Consulting Provider: SHARMILA GOOD Physician Instructions: Reason For Exam: Hypernatremia, ESRD on Dialysis 03/01/19 10:13 Consult to Physician [CONS] Routine Comment: Consulting Provider: CACHORRO DUFF Physician Instructions: Reason For Exam: hematemesis, abd pain Hospitalization Reason for admission: hypernatremia, intractable n/v Condition: Fair Hospital course: Patient is a 33 y/o male with PMH of HTN, PUD? (01/12 in [place] per pt), DM (uncontrolled), gastroparesis, HIV, anemia of chronic disease, and ESRD (began HD 12/2018) who presented to ED with c/o right sided pain, saying "it feels like its near my kidneys" with associated N/V with hematemesis. Upon admission he was found to be to have severe hypernatremia to which he was admitted and nephrology was counseled. GI was also consulted for hematemesis. Patient is previously known to GI service from a consult just last week for similar symptoms and underwent an EGD/colonoscopy by Dr. Mccullough on 02/25/19 that revealed emetogenic gastritis, otherwise normal. The pt. reported 1 episode of hematemesis with a small amount of dark bloody emesis the day prior to admission but no further signs of bleeding. GI felt that since there were no acute signs of bleeding that no diascopy was needed. They recommended continuing daily Protonix. The patient received supportive care with Reglan and anti-emetics along with IV fluid hydration for the gastroparesis/intractable nausea and vomiting. The patient's symptoms improved and he was able to tolerate a diet. Hyponatremia was felt to be secondary to poor oral intake and overall dehydration. The patient was treated with D5W at 75 mL an hour with resolution of hyponatremia. Patient is felt to have received maximal hospital benefit and therefore be discharged home. Dedicated discharge time 32 minutes. Disposition: TO HOME OR SELFCARE Time spent for discharge: 32 - Discharge Diagnoses (1) Abdominal pain Status: Acute (2) Acute hypernatremia Status: Acute (3) Gastroparesis Status: Acute (4) Hematemesis Status: Acute Qualifiers: Nausea presence: with nausea Qualified Code(s): K92.0 - Hematemesis (5) Chronic pain Status: Acute Core Measure Documentation - Palliative Care Palliative Care/ Comfort Measures: Not Applicable - Core Measures Any of the following diagnoses?: none Exam - Constitutional Vitals: Temp Pulse Resp BP Pulse Ox 98.6 F 101 H 18 152/92 96 03/02/19 05:03/02/19 05:03/02/19 05:03/02/19 05:03/02/19 05:19 General appearance: Present: no acute distress, well-nourished - EENT Eyes: Present: PERRL ENT: hearing intact, clear oral mucosa - Neck Neck: Present: supple, normal ROM - Respiratory Respiratory effort: normal Respiratory: bilateral: CTA - Cardiovascular Heart Sounds: Present: S1 & S2. Absent: rub, click - Extremities Extremities: pulses symmetrical, No edema Peripheral Pulses: within normal limits - Abdominal General gastrointestinal: Present: soft, non-tender, non-distended, normal bowel sounds Male genitourinary: Present: normal - Integumentary Integumentary: Present: clear, warm, dry - Musculoskeletal Musculoskeletal: gait normal, strength equal bilaterally - Psychiatric Psychiatric: appropriate mood/affect, intact judgment & insight - Neurologic Neurologic: CNII-XII intact, moves all extremities Plan Activity: no restrictions Weight Bearing Status: Full Weight Bearing Diet: diabetic [facility] [Referring] - 3-5 Days CACHORRO DUFF MD [Staff Physician] - 7 Days SHARMILA GOOD DO [Staff Physician] - 7 Days Forms: Accompanied Note Prescriptions: hydrALAZINE [Apresoline TAB] 100 mg PO TID #30 tab Ferrous Sulfate [Feosol 325 MG tab] 325 mg PO QDAY #30 tablet ISOSORBIDE MONOnitrate [Imdur ER] 30 mg PO DAILY #30 tablet Labetalol [Labetalol 200mg TAB] 200 mg PO BID #60 tablet amLODIPine [Norvasc] 5 mg PO DAILY #30 tablet Pantoprazole [Protonix TAB] 40 mg PO QDAY #30 tablet Mirtazapine Solutab [Remeron 15mg Solutab] 15 mg PO QHS #30 tab.rapdis Ondansetron [Zofran ODT TAB] 4 mg PO Q8HR PRN #20 tab.rapdis PRN Reason: Nausea
--- NOTE | 2019-03-02 10:38 | Progress Note ---
Assessment and Plan - Patient Problems (1) ESRD (end stage renal disease) Current Visit: No Status: Chronic Plan to address problem: Will maintain patient on inpatient T// dialysis schedule. (2) Acute hypernatremia Current Visit: Yes Status: Acute Plan to address problem: In the setting of poor oral intake and overall dehydration in this patient who has been having persistent nausea/vomiting. Initiated on D5W at 75 cc/hr. Will monitor closely. (3) Hypertensive chronic kidney disease with stage 5 chronic kidney disease or end stage renal disease Current Visit: No Status: Chronic Plan to address problem: Will continue patient on current regimen and monitor closely (4) Abdominal pain Current Visit: Yes Status: Acute Plan to address problem: Unclear etiology in the setting of recent GI evaluation with EGD and colonoscopy. Will continue to monitor. Symptom control per primary team. (5) HIV (human immunodeficiency virus infection) Current Visit: No Status: Chronic Qualifiers: Plan to address problem: Continue current HAART therapy per ID recommendations. Subjective Date of service: 03/02/19 Interval history: No acute changes overnight. Labs noted. He tolerated HD well. Overall symptoms are slowly showing improvement. Objective - Vital Signs Vital signs: Vital Signs - 12hr 03/01/19 03/02/19 23:43 05:19 Temperature 98.9 F 98.6 F Pulse Rate 101 H 101 H Respiratory 20 18 Rate Blood Pressure 169/101 152/92 O2 Sat by Pulse 95 96 Oximetry - General Appearance General appearance: well-developed, appears stated age, obese EENT: ATNC, PERRL Neck: no JVD, no thyromegaly Respiratory: Present: Clear to Ascultation Cardiology: regular, S1S2 Gastrointestinal: normal, normoactive bowel sounds Integumentary: no rash, warm and dry Neurologic: no focal deficit, alert and oriented x3 Psychiatric: mood/affect appropriate, cooperative - Lab 03/02/19 05:07 03/02/19 05:07 Most recent lab results Calcium 8.5 mg/dL (8.4-10.2) D 03/02/19 05:07 - Allied health notes Allied health notes reviewed: nursing Medications & Allergies - Medications Allergies/Adverse Reactions: Allergies Penicillins Allergy (Verified 02/11/19 14:13) Hives Home Medications: Home Medications Medication Instructions Recorded Confirmed Last Taken Type Ferrous Sulfate [Feosol 325 MG tab] 325 mg PO QDAY #30 tablet 03/02/19 Unknown Rx ISOSORBIDE MONOnitrate [Imdur ER] 30 mg PO DAILY #30 tablet 03/02/19 Unknown Rx Insulin Regular, Human [HumuLIN R] 0 units SUB-Q Q6HR units 03/02/19 Unknown Rx Labetalol [Labetalol 200mg TAB] 200 mg PO BID #60 tablet 03/02/19 Unknown Rx Metoclopramide [Reglan] 10 mg PO TID #30 tab 03/02/19 Unknown Rx Mirtazapine Solutab [Remeron 15mg 15 mg PO QHS #30 tab.rapdis 03/02/19 Unknown Rx Solutab] Ondansetron [Zofran ODT TAB] 4 mg PO Q8HR PRN #20 tab.rapdis 03/02/19 Unknown Rx Pantoprazole [Protonix TAB] 40 mg PO QDAY #30 tablet 03/02/19 Unknown Rx amLODIPine [Norvasc] 5 mg PO DAILY #30 tablet 03/02/19 Unknown Rx hydrALAZINE [Apresoline TAB] 100 mg PO TID #30 tab 03/02/19 Unknown Rx Active Medications: Generic Name Dose Route Start Last Admin Trade Name Freq PRN Reason Stop Dose Admin Acetaminophen 650 mg 03/01/19 10:13 Tylenol PO Q4H PRN Pain MILD(1-3)/Fever >100.5/CHOUDHARY Dextrose 50 ml 03/01/19 10:13 D50w (25gm) Syringe IV PRN PRN Hypoglycemia Dextrose 1,000 mls @ 75 mls/hr 03/01/19 10:00 03/01/19 22:43 D5w IV 0 mls/hr DIRECT SHIRA Infusion Sodium Chloride 100 mls @ 999 mls/hr 03/01/19 10:30 Nacl 0.9% IV TORY PRN Hypotension Insulin Human Regular 0 units 03/01/19 12:00 03/02/19 07:00 Humulin R SUB-Q Not Given Q6HR SHIRA Protocol Ondansetron HCl 4 mg 03/01/19 10:13 03/01/19 22:59 Zofran IV 4 mg Q8H PRN Administration Nausea And Vomiting Pantoprazole Sodium 40 mg 03/01/19 15:00 03/02/19 09:50 Protonix IV 40 mg QDAY SHIRA Administration Sodium Chloride 10 ml 03/01/19 22:00 03/02/19 00:39 Sodium Chloride Flush Syringe 10 Ml IV Not Given BID SHIRA Sodium Chloride 10 ml 03/01/19 10:13 Sodium Chloride Flush Syringe 10 Ml IV PRN PRN LINE FLUSH
[2019-03-02 12:28] VITALS: BP 176/110
== END 2019-03-02 16:30 | disposition home or self-care (01) | DRG 73 ==
LOC: ED 07:05 → 4A 08:52 → 3A 14:17
PROVIDERS: ADMIT Hospitalist; ATTEND Hospitalist
PROC: 5A1D70Z Performance of Urinary Filtration, Intermittent, Less than 6 Hours Per Day (ICD-10-PCS; principal; 2019-03-01)
DX: E11.43 Type 2 diabetes mellitus with diabetic autonomic (poly)neuropathy (principal); N18.6 End stage renal disease; E87.0 Hyperosmolality and hypernatremia; B20 Human immunodeficiency virus [HIV] disease; K92.0 Hematemesis; I50.20 Unspecified systolic (congestive) heart failure; I13.2 Hypertensive heart and chronic kidney disease with heart failure and with stage 5 chronic kidney disease, or end stage renal disease; E11.22 Type 2 diabetes mellitus with diabetic chronic kidney disease; G89.29 Other chronic pain; D63.1 Anemia in chronic kidney disease; K31.84 Gastroparesis; E11.65 Type 2 diabetes mellitus with hyperglycemia; Z88.0 Allergy status to penicillin; Z79.899 Other long term (current) drug therapy; Z79.4 Long term (current) use of insulin; Z90.49 Acquired absence of other specified parts of digestive tract
CPT/HCPCS: 36415; 80048; 80076; 82962; 85025; 85610; 85730; 93005; 93010; 96372; 96374; 96375; G0378; C9113; J0360; J1815; J1885; J2270; J2405; J2765; J7070

== ENCOUNTER 2019-03-08 11:47 | Emergency (ER) | payer OTHER ==
[2019-03-08] MEDS ORDERED: MORPHINE IV ONE (12:27)
[2019-03-08] MEDS ORDERED: REGLAN IV ONE (12:27)
[2019-03-08 13:23] LABS: Basophils % (Auto) 0.6 % (0.0-1.8); Eosinophils % (Auto) 0.4 % (0.0-4.3); Hematocrit 28.9 % (35.5-45.6); Hemoglobin 9.6 gm/dl (11.8-15.2); Lymphocytes % (Auto) 12.4 % (13.4-35.0); Mean Corpuscular HGB Conc 33 % (32-34); Mean Corpuscular Volume 88 fl (84-94); Monocytes # (Auto) 0.3 K/mm3 (0.0-0.8); Monocytes % (Auto) 4.1 % (0.0-7.3); Platelet Count 354 K/mm3 (140-440); Red Cell Distribution Width 13.9 % (13.2-15.2)
[2019-03-08 13:43] LABS: Calcium 8.7 mg/dL (8.4-10.2)
--- NOTE | 2019-03-08 14:25 | Emergency Department Report ---
ED Back Pain/Injury HPI - General Chief Complaint: Weakness Stated Complaint: N/V BACK PAIN Time Seen by Provider: 03/08/19 12:21 Source: patient, EMS Limitations: No Limitations - Related Data Previous Rx's Medication Instructions Recorded Last Taken Type Labetalol [Labetalol 200mg TAB] 200 mg PO BID #60 tablet 03/02/19 03/07/19 Rx Mirtazapine Solutab [Remeron 15mg 15 mg PO QHS #30 tab.rapdis 03/02/19 03/07/19 Rx Solutab] amLODIPine [Norvasc] 5 mg PO DAILY #30 tablet 03/02/19 03/07/19 Rx hydrALAZINE [Apresoline TAB] 100 mg PO TID #30 tab 03/02/19 03/07/19 Rx Metoclopramide [Reglan TAB] 10 mg PO TID #30 tab 03/08/19 Unknown Rx methOCARBAMOL [Robaxin TAB] 500 mg PO Q8HR PRN #20 tablet 03/08/19 Unknown Rx traMADol [Ultram] 50 mg PO Q6HR PRN #7 tablet 03/08/19 Unknown Rx Allergies Allergy/AdvReac Type Severity Reaction Status Date / Time Penicillins Allergy Hives Verified 02/11/19 14:13 ED Review of Systems ROS: Stated complaint: N/V BACK PAIN Other details as noted in HPI ED Past Medical Hx - Past Medical History Hx Hypertension: Yes Hx Congestive Heart Failure: No Hx Diabetes: Yes Hx Renal Disease: Yes (Tue, thurs, Sat) Hx Asthma: No Hx COPD: No Hx HIV: Yes Additional medical history: HIV. gastroparesis - Surgical History Hx Cholecystectomy: Yes Additional Surgical History: PORT IN CHEST - Social History Smoking Status: Never Smoker - Medications Home Medications: Home Medications Medication Instructions Recorded Confirmed Last Taken Type Labetalol [Labetalol 200mg TAB] 200 mg PO BID #60 tablet 03/02/19 03/08/19 03/07/19 Rx Mirtazapine Solutab [Remeron 15mg 15 mg PO QHS #30 tab.rapdis 03/02/19 03/08/19 03/07/19 Rx Solutab] amLODIPine [Norvasc] 5 mg PO DAILY #30 tablet 03/02/19 03/08/19 03/07/19 Rx hydrALAZINE [Apresoline TAB] 100 mg PO TID #30 tab 03/02/19 03/08/19 03/07/19 Rx Metoclopramide [Reglan TAB] 10 mg PO TID #30 tab 03/08/19 Unknown Rx methOCARBAMOL [Robaxin TAB] 500 mg PO Q8HR PRN #20 tablet 03/08/19 Unknown Rx traMADol [Ultram] 50 mg PO Q6HR PRN #7 tablet 03/08/19 Unknown Rx ED Physical Exam - General Limitations: No Limitations ED Course Vital Signs 03/08/19 03/08/19 11:48 12:39 Temperature 98.3 F Pulse Rate 106 H Respiratory 20 19 Rate Blood Pressure 195/110 [Left] O2 Sat by Pulse 98 Oximetry ED Medical Decision Making - Lab Data Result diagrams: 03/08/19 13:04 03/08/19 13:04 Critical care attestation.: If time is entered above; I have spent that time in minutes in the direct care of this critically ill patient, excluding procedure time. ED Disposition Clinical Impression: Chronic back pain, Nausea & vomiting Disposition: DC-01 TO HOME OR SELFCARE Is pt being admited?: No Condition: Stable Instructions: Chronic Back Pain (ED), Acute Nausea and Vomiting (ED) Prescriptions: Metoclopramide [Reglan TAB] 10 mg PO TID #30 tab Referrals: NETTE HODGE MD [Primary Care Provider] - 3-5 Days Time of Disposition: 14:24
[2019-03-08] MEDS ORDERED: ULTRAM PO ONE (15:03)
[2019-03-08] MEDS ORDERED: ZOFRAN ODT ONE (15:06)
[2019-03-08] MEDS ORDERED: ULTRAM ONE (15:06)
[2019-03-08 15:12] VITALS: BP 152/88
== END 2019-03-08 15:11 | disposition home or self-care (01) ==
LOC: ED 11:47
DX: G89.29 Other chronic pain (principal); M54.9 Dorsalgia, unspecified; R11.2 Nausea with vomiting, unspecified; I10 Essential (primary) hypertension; E11.9 Type 2 diabetes mellitus without complications; Z90.49 Acquired absence of other specified parts of digestive tract; Z79.899 Other long term (current) drug therapy; Z88.0 Allergy status to penicillin
CPT/HCPCS: 36415; 80048; 82962; 85025; 96374; 96375; 99284; J2270; J2765; Q0162

== ENCOUNTER 2019-03-14 09:49 | Emergency (ER) | payer OTHER ==
[2019-03-14 10:34] LABS: Basophils % (Auto) 0.4 % (0.0-1.8); Eosinophils % (Auto) 0.6 % (0.0-4.3); Hematocrit 31.4 % (35.5-45.6); Hemoglobin 10.6 gm/dl (11.8-15.2); Lymphocytes # (Auto) 1.2 K/mm3 (1.2-5.4); Lymphocytes % (Auto) 15.9 % (13.4-35.0); Mean Corpuscular HGB Conc 34 % (32-34); Mean Corpuscular Volume 87 fl (84-94); Monocytes # (Auto) 0.4 K/mm3 (0.0-0.8); Monocytes % (Auto) 5.1 % (0.0-7.3); Platelet Count 353 K/mm3 (140-440); Red Blood Count 3.62 M/mm3 (3.65-5.03); Red Cell Distribution Width 15.3 % (13.2-15.2)
[2019-03-14 10:55] LABS: Albumin 3.4 g/dL (3.9-5); Calcium 8.8 mg/dL (8.4-10.2)
[2019-03-14] MEDS ORDERED: ZOFRAN IV ONE ×2 (11:15→13:29)
[2019-03-14] MEDS ORDERED: REGLAN IV ONE (11:15)
[2019-03-14] MEDS ORDERED: DILAUDID IV ONE ×2 (11:16→14:38)
[2019-03-14] MEDS ORDERED: PROTONIX IV ONE (11:16)
[2019-03-14] MEDS ORDERED: NORMODYNE IV ONE (11:16)
[2019-03-14] MEDS ORDERED: BENADRYL IV ONE (11:16)
--- NOTE | 2019-03-14 11:22 | Emergency Department Report ---
ED Abdominal Pain HPI - General Chief Complaint: Abdominal Pain Stated Complaint: VOMITING/BLOOD IN STOOL/ABD PAIN Time Seen by Provider: 03/14/19 10:56 Source: patient, old records reviewed Mode of arrival: Ambulatory Limitations: No Limitations - History of Present Illness Initial Comments: 33-year-old male with a past medical history of end-stage renal disease on dialysis (last dialysis sat, due tomorrow/), hypertension, HIV (not on anti-retrovirals), diabetes, and gastroparesis with previous cholecystectomy presents to the hospital complaints of abdominal pain, nausea, vomiting, and by mouth intolerance since 11 PM last night. Patient complains of generalized intermittent abdominal pain, cramping, with the lower abdomen it was a palpati on. Patient was unable to tolerate a.m. BP medication and presents with hypertension. He is taking Reglan without relief. He is not currently taking any pain medication. He had one episode of blood in his stool this morning and denies diarrhea. No documented fever. Patient has been here multiple times since February 14. He recently traveled here from [place] and had not completed arrangements of his outpatient dialysis. He has been admitted here February 14 through the , February 22 to February 26, March 01 to March 02, and presented to the ED on March 08 was subsequently discharged. Patient had a EGD and colonoscopy performed on February 25 showing mild erythema in the gastric fundus consistent with emesis otherwise normal endoscopy and a normal colonoscopy. - Related Data Home Medications Medication Instructions Recorded Confirmed Last Taken Ferrous Sulfate [Feosol] 325 mg PO QDAY 03/14/19 03/14/19 Unknown Previous Rx's Medication Instructions Recorded Last Taken Type Labetalol [Labetalol 200mg TAB] 200 mg PO BID #60 tablet 03/02/19 03/07/19 Rx amLODIPine [Norvasc] 5 mg PO DAILY #30 tablet 03/02/19 03/07/19 Rx hydrALAZINE [Apresoline TAB] 100 mg PO TID #30 tab 03/02/19 03/07/19 Rx Metoclopramide [Reglan TAB] 10 mg PO TID #30 tab 03/08/19 Unknown Rx methOCARBAMOL [Robaxin TAB] 500 mg PO Q8HR PRN #20 tablet 03/08/19 Unknown Rx traMADol [Ultram] 50 mg PO Q6HR PRN #7 tablet 03/08/19 Unknown Rx HYDROcodone/APAP 5-325 [[place] 1 each PO Q6HR PRN #20 tablet 03/14/19 Unknown Rx 5/325] Ondansetron [Zofran Odt] 4 mg PO Q8HR PRN #20 tab.rapdis 03/14/19 Unknown Rx Allergies Allergy/AdvReac Type Severity Reaction Status Date / Time Penicillins Allergy Hives Verified 02/11/19 14:13 ED Review of Systems ROS: Stated complaint: VOMITING/BLOOD IN STOOL/ABD PAIN Other details as noted in HPI Comment: All other systems reviewed and negative ED Past Medical Hx - Past Medical History Hx Hypertension: Yes Hx Congestive Heart Failure: No Hx Diabetes: Yes Hx Renal Disease: Yes (Tue, th, Sat) Hx Asthma: No Hx COPD: No Hx HIV: Yes Additional medical history: HIV. gastroparesis - Surgical History Hx Cholecystectomy: Yes Additional Surgical History: PORT IN CHEST - Social History Smoking Status: Never Smoker Substance Use Type: None - Medications Home Medications: Home Medications Medication Instructions Recorded Confirmed Last Taken Type Labetalol [Labetalol 200mg TAB] 200 mg PO BID #60 tablet 03/02/19 03/14/19 03/07/19 Rx amLODIPine [Norvasc] 5 mg PO DAILY #30 tablet 03/02/19 03/14/19 03/07/19 Rx hydrALAZINE [Apresoline TAB] 100 mg PO TID #30 tab 03/02/19 03/14/19 03/07/19 Rx Metoclopramide [Reglan TAB] 10 mg PO TID #30 tab 03/08/19 03/14/19 Unknown Rx methOCARBAMOL [Robaxin TAB] 500 mg PO Q8HR PRN #20 tablet 03/08/19 03/14/19 Unknown Rx traMADol [Ultram] 50 mg PO Q6HR PRN #7 tablet 03/08/19 03/14/19 Unknown Rx Ferrous Sulfate [Feosol] 325 mg PO QDAY 03/14/19 03/14/19 Unknown History HYDROcodone/APAP 5-325 [[place] 1 each PO Q6HR PRN #20 tablet 03/14/19 Unknown Rx 5/325] Ondansetron [Zofran Odt] 4 mg PO Q8HR PRN #20 tab.rapdis 03/14/19 Unknown Rx ED Physical Exam - General Limitations: No Limitations - Other Other exam information: General: Mild distress due to pain Head: Atraumatic normocephalic Eyes: Normal appearance, pupils equal reactive to light, extraocular movements intact ENT: Normal oropharynx Neck: Normal appearance, no C-spine tenderness, no meningismus Chest: Clear to auscultation bilaterally, no wheezes, rales, or crackles, right chest wall dialysis catheter Cardiovascular: Tachycardic regular rhythm Abdomen: Soft, nondistended, generalized tenderness greatest in the lower abdomen, no rebound or guarding, normal bowel sounds Rectal: No external hemorrhoids or fissures noted. No stool obtained on rectal exam, no gross blood, no melena, and guaiac negative Back: Normal inspection, nontender Extremity: Normal inspection, no deformity, full range of motion Neuro: Alert and oriented 3, speech clear, no gross motor or sensory deficit Psychiatric: Normal affect Skin: No rash, warmth, or erythema ED Course Vital Signs 03/14/19 03/14/19 03/14/19 10:00 11:24 12:15 Temperature 98.8 F 98.5 F Pulse Rate 116 H 110 H 102 H Respiratory 20 18 Rate Blood Pressure 216/135 198/106 Blood Pressure 219/136 [Left] O2 Sat by Pulse 98 97 Oximetry 03/14/19 03/14/19 03/14/19 12:30 12:53 13:34 Temperature Pulse Rate 102 H 98 H Respiratory Rate Blood Pressure Blood Pressure 198/106 194/102 189/98 [Left] O2 Sat by Pulse Oximetry 03/14/19 03/14/19 03/14/19 14:08 14:45 15:39 Temperature Pulse Rate 98 H Respiratory Rate Blood Pressure Blood Pressure 157/98 189/105 178/95 [Left] O2 Sat by Pulse Oximetry - Reevaluation(s) Reevaluation #1: 03/14/19 14:42 Patient resting in pain and she improved after initial round of meds. He tolerated crackers and fluid intake. Now complaining of pain returning and low blood sugar is increasing again. Hydralazine by mouth and additional Dilaudid ordered ED Medical Decision Making - Lab Data Result diagrams: 03/14/19 10:08 03/14/19 10:08 Lab Results 08/19/19 08/19/19 08/19/19 Range/Units 02:04 10:08 10:08 WBC 7.4 (4.5-11.0) K/mm3 RBC 3.62 L (3.65-5.03) M/mm3 Hgb 10.6 L (11.8-15.2) gm/dl Hct 31.4 L (35.5-45.6) % MCV 87 (84-94) fl MCH 29 (28-32) pg MCHC 34 (32-34) % RDW 15.3 H (13.2-15.2) % Plt Count 353 (140-440) K/mm3 Lymph % (Auto) 15.9 (13.4-35.0) % [place] % (Auto) 5.1 (0.0-7.3) % Eos % (Auto) 0.6 (0.0-4.3) % Baso % (Auto) 0.4 (0.0-1.8) % Lymph # 1.2 (1.2-5.4) K/mm3 [place] # 0.4 (0.0-0.8) K/mm3 Eos # 0.0 (0.0-0.4) K/mm3 Baso # 0.0 (0.0-0.1) K/mm3 Seg Neutrophils % 78.0 H (40.0-70.0) % Seg Neutrophils # 5.7 (1.8-7.7) K/mm3 Sodium 139 (137-145) mmol/L Potassium 3.1 L (3.6-5.0) mmol/L Chloride 95.1 L (98-107) mmol/L Carbon Dioxide 29 (22-30) mmol/L Anion Gap 18 mmol/L BUN 17 (9-20) mg/dL Creatinine 3.4 H (0.8-1.5) mg/dL Estimated GFR 26 ml/min BUN/Creatinine Ratio 5 % Glucose 263 H (75-100) mg/dL Calcium 8.8 (8.4-10.2) mg/dL Total Bilirubin 0.80 (0.1-1.2) mg/dL AST 19 (5-40) units/L ALT 12 (7-56) units/L Alkaline Phosphatase 84 (35-129) units/L Total Protein 7.6 (6.3-8.2) g/dL Albumin 3.4 L (3.9-5) g/dL Albumin/Globulin Ratio 0.8 % Urine Color Yellow (Yellow) Urine Turbidity Clear (Clear) Urine pH 6.0 (5.0-7.0) Ur Specific [place] 1.011 (1.003-1.030) Urine Protein >500 (Negative) mg/dL Urine Glucose (UA) >=500 (Negative) mg/dL Urine Ketones Neg (Negative) mg/dL Urine Blood Sm (Negative) Urine Nitrite Neg (Negative) Urine Bilirubin Neg (Negative) Urine Urobilinogen < 2.0 (<2.0) mg/dL Ur Leukocyte Esterase Neg (Negative) Urine WBC (Auto) 3.0 (0.0-6.0) /HPF Urine RBC (Auto) 5.0 (0.0-6.0) /HPF U Epithel Cells (Auto) 1.0 (0-13.0) /HPF Urine Bacteria (Auto) 1+ (Negative) /HPF Granular Casts 2 /LPF Urine Mucus Few /HPF - Medical Decision Making sx improved with ed tx tolerating po bp improved + Gastroparesis f/u advised - Differential Diagnosis gastroparesis, dehydration, chronic pain, GI bleed Critical Care Time: No Critical care attestation.: If time is entered above; I have spent that time in minutes in the direct care of this critically ill patient, excluding procedure time. ED Disposition Clinical Impression: ESRD on peritoneal dialysis, HIV (human immunodeficiency virus infection), Gastroparesis, HTN (hypertension) Disposition: DC-01 TO HOME OR SELFCARE Is pt being admited?: No Does the pt Need Aspirin: No Condition: Stable Instructions: Acute Nausea and Vomiting (ED), Abdominal Pain (ED), Hypertension (ED) Additional Instructions: Take the medications as prescribed. Follow-up with your doctor or with a doctor/clinic provided. Return is symptoms worsen as indicated by the dis charge instructions. Prescriptions: HYDROcodone/APAP 5-325 [[place] 5/325] 1 each PO Q6HR PRN #20 tablet PRN Reason: Pain Ondansetron [Zofran Odt] 4 mg PO Q8HR PRN #20 tab.rapdis PRN Reason: Nausea And Vomiting Referrals: NETTE HODGE MD [Primary Care Provider] - 3-5 Days [facility] [Provider Group] - 3-5 Days (GI doctors ) Time of Disposition: 15:46
[2019-03-14 11:43] LABS: Bacteria,Urine 1+ /HPF (Negative); Bilirubin,Urine NEG (Negative); Blood,Urine SM (Negative); Color,Urine Yellow (Yellow); Granular Casts,Urine 2 /LPF; Mucus,Urine FEW /HPF; Urobilinogen,Urine < 2.0 mg/dL (<2.0)
[2019-03-14 11:45] LABS: Protein,Urine >500 mg/dL (Negative)
[2019-03-14] MEDS ORDERED: ZOFRAN ONE (13:32)
[2019-03-14] MEDS ORDERED: APRESOLINE PO ONE (14:41)
[2019-03-14 15:41] VITALS: BP 178/95
== END 2019-03-14 16:00 | disposition home or self-care (01) ==
LOC: ED 09:49
DX: E11.22 Type 2 diabetes mellitus with diabetic chronic kidney disease (principal); I12.0 Hypertensive chronic kidney disease with stage 5 chronic kidney disease or end stage renal disease; N18.6 End stage renal disease; E11.43 Type 2 diabetes mellitus with diabetic autonomic (poly)neuropathy; K31.84 Gastroparesis; Z99.2 Dependence on renal dialysis; Z90.49 Acquired absence of other specified parts of digestive tract; Z79.899 Other long term (current) drug therapy; Z88.6 Allergy status to analgesic agent; Z88.0 Allergy status to penicillin
CPT/HCPCS: 36415; 80053; 81001; 82271; 85025; 96374; 96375; 96376; 99284; C9113; J1170; J1200; J2405; J2765

== ENCOUNTER 2019-03-15 12:25 | Inpatient (IN) | payer OTHER ==
--- NOTE | 2019-03-15 12:56 | Emergency Department Report ---
ED General Adult HPI - General Chief complaint: High BP Stated complaint: HBP Time Seen by Provider: 03/15/19 12:34 Source: patient, EMS Mode of arrival: Stretcher Limitations: No Limitations - History of Present Illness Initial comments: 33-year-old male with history of ESRD, HIV, gastroparesis presents to ED with complaint of hypertension. Patient states he was sent from dialysis due to elevated blood pressure. Patient reports he took his hydralazine, amlodipine prior to dialysis. States he was given clonidine 2 while at dialysis however his blood pressure did not improve, so he was not dialyzed at all today. Today is Thursday, pt last dialyzed on Thursday, has dialysis schedule. Patient also reported continued nausea, vomiting, abdominal pain due to his gastroparesis. Patient was seen here in the ED on yesterday for abdominal pain and vomiting. Patient states his abdominal pain is in the usual location, which is center of the abdomen and lower abdomen. Patient has had multiple ER visits since January, since moving to [place] from [place]. Patient had an admission earlier this month in which he underwent EGD on February 25 that revealed emetogenic gastritis. -: This morning Location: abdomen Radiation: non-radiation Quality: aching Consistency: constant Improves with: none Worsens with: none Associated Symptoms: nausea/vomiting. denies: shortness of breath - Related Data Home Medications Medication Instructions Recorded Confirmed Last Taken Ferrous Sulfate [Feosol] 325 mg PO QDAY 03/14/19 03/14/19 Unknown Previous Rx's Medication Instructions Recorded Last Taken Type Labetalol [Labetalol 200mg TAB] 200 mg PO BID #60 tablet 03/02/19 03/07/19 Rx amLODIPine [Norvasc] 5 mg PO DAILY #30 tablet 03/02/19 03/07/19 Rx hydrALAZINE [Apresoline TAB] 100 mg PO TID #30 tab 03/02/19 03/07/19 Rx Metoclopramide [Reglan TAB] 10 mg PO TID #30 tab 03/08/19 Unknown Rx methOCARBAMOL [Robaxin TAB] 500 mg PO Q8HR PRN #20 tablet 03/08/19 Unknown Rx traMADol [Ultram] 50 mg PO Q6HR PRN #7 tablet 03/08/19 Unknown Rx HYDROcodone/APAP 5-325 [[place] 1 each PO Q6HR PRN #20 tablet 03/14/19 Unknown Rx 5/325] Ondansetron [Zofran Odt] 4 mg PO Q8HR PRN #20 tab.rapdis 03/14/19 Unknown Rx Allergies Allergy/AdvReac Type Severity Reaction Status Date / Time Penicillins Allergy Hives Verified 02/11/19 14:13 ED Review of Systems ROS: Stated complaint: HBP Other details as noted in HPI Comment: All other systems reviewed and negative Constitutional: denies: fever Respiratory: denies: shortness of breath Cardiovascular: denies: chest pain Gastrointestinal: abdominal pain, nausea, vomiting ED Past Medical Hx - Past Medical History Previous Medical History?: Yes Hx Hypertension: Yes Hx Congestive Heart Failure: No Hx Diabetes: Yes Hx Renal Disease: Yes (Tue, th, Sat) Hx Asthma: No Hx COPD: No Hx HIV: Yes Additional medical history: HIV. gastroparesis - Surgical History Past Surgical History?: Yes Hx Cholecystectomy: Yes Additional Surgical History: PORT IN CHEST - Social History Smoking Status: Unknown if ever smoked Substance Use Type: None - Medications Home Medications: Home Medications Medication Instructions Recorded Confirmed Last Taken Type Labetalol [Labetalol 200mg TAB] 200 mg PO BID #60 tablet 03/02/19 03/14/19 03/07/19 Rx amLODIPine [Norvasc] 5 mg PO DAILY #30 tablet 03/02/19 03/14/19 03/07/19 Rx hydrALAZINE [Apresoline TAB] 100 mg PO TID #30 tab 03/02/19 03/14/19 03/07/19 Rx Metoclopramide [Reglan TAB] 10 mg PO TID #30 tab 03/08/19 03/14/19 Unknown Rx methOCARBAMOL [Robaxin TAB] 500 mg PO Q8HR PRN #20 tablet 03/08/19 03/14/19 Unknown Rx traMADol [Ultram] 50 mg PO Q6HR PRN #7 tablet 03/08/19 03/14/19 Unknown Rx Ferrous Sulfate [Feosol] 325 mg PO QDAY 03/14/19 03/14/19 Unknown History HYDROcodone/APAP 5-325 [[place] 1 each PO Q6HR PRN #20 tablet 03/14/19 Unknown Rx 5/325] Ondansetron [Zofran Odt] 4 mg PO Q8HR PRN #20 tab.rapdis 03/14/19 Unknown Rx ED Physical Exam - General Limitations: No Limitations General appearance: alert, in no apparent distress, obese - Head Head exam: Present: atraumatic, normocephalic - Eye Eye exam: Present: normal appearance, PERRL, EOMI - ENT ENT exam: Present: mucous membranes moist - Neck Neck exam: Present: normal inspection - Respiratory Respiratory exam: Present: normal lung sounds bilaterally. Absent: respiratory distress - Cardiovascular Cardiovascular Exam: Present: normal rhythm, tachycardia - GI/Abdominal GI/Abdominal exam: Present: soft, tenderness (mild lower abdominal tenderness present). Absent: distended - Extremities Exam Extremities exam: Present: normal inspection - Neurological Exam Neurological exam: Present: alert, oriented X3 - Psychiatric Psychiatric exam: Present: normal affect, normal mood - Skin Skin exam: Present: warm, dry, intact, normal color ED Course Vital Signs 03/15/19 03/15/19 03/15/19 12:36 12:40 13:00 Temperature 97.7 F Pulse Rate 107 H 107 H 106 H Respiratory 11 L 16 14 Rate Blood Pressure 194/131 206/124 O2 Sat by Pulse 97 97 98 Oximetry 03/15/19 03/15/19 03/15/19 13:24 13:30 14:00 Temperature Pulse Rate 111 H 104 H 96 H Respiratory 13 13 Rate Blood Pressure 171/107 171/107 158/103 O2 Sat by Pulse 97 94 Oximetry 03/15/19 03/15/19 14:22 14:30 Temperature Pulse Rate 97 H Respiratory 14 Rate Blood Pressure 144/96 O2 Sat by Pulse 100 93 Oximetry - Consultations Consultation #1: 03/15/19 14:36 Spoke w/ Dr Peralta. Will dialyze from the ED and d/c home after dialysis. ED Medical Decision Making - Lab Data Result diagrams: 03/15/19 13:18 03/15/19 13:18 Critical care attestation.: If time is entered above; I have spent that time in minutes in the direct care of this critically ill patient, excluding procedure time. ED Disposition Clinical Impression: Hypertensive urgency, ESRD (end stage renal disease) Disposition: OP ADMIT IP TO THIS HOSP Is pt being admited?: Yes Condition: Stable Referrals: NETTE HODGE MD [Primary Care Provider] - 3-5 Days Time of Disposition: 15:19
[2019-03-15] MEDS ORDERED: APRESOLINE IV ONE (13:01)
[2019-03-15] MEDS ORDERED: REGLAN IV ONE (13:01)
[2019-03-15] MEDS ORDERED: BENADRYL IV ONE (13:01)
[2019-03-15] MEDS ORDERED: BENTYL IM ONE (13:25)
[2019-03-15 13:37] LABS: Basophils % (Auto) 0.5 % (0.0-1.8); Eosinophils % (Auto) 0.7 % (0.0-4.3); Hematocrit 29.1 % (35.5-45.6); Hemoglobin 9.9 gm/dl (11.8-15.2); Lymphocytes # (Auto) 1.2 K/mm3 (1.2-5.4); Lymphocytes % (Auto) 17.4 % (13.4-35.0); Mean Corpuscular HGB Conc 34 % (32-34); Mean Corpuscular Volume 87 fl (84-94); Monocytes # (Auto) 0.4 K/mm3 (0.0-0.8); Monocytes % (Auto) 5.7 % (0.0-7.3); Platelet Count 315 K/mm3 (140-440); Red Blood Count 3.35 M/mm3 (3.65-5.03); Red Cell Distribution Width 14.9 % (13.2-15.2)
[2019-03-15 13:57] LABS: Albumin 3.2 g/dL (3.9-5); Calcium 8.4 mg/dL (8.4-10.2)
[2019-03-15] MEDS ORDERED: NACL 0.9% 100 ML IV PRN (14:36)
[2019-03-15] MEDS ORDERED: SODIUM CHLORIDE FLUSH SYRINGE 10 ML IV PRN (15:21)
[2019-03-15] MEDS ORDERED: PROVENTIL IH PRN (15:21)
[2019-03-15] MEDS ORDERED: ZOFRAN IV PRN (15:21)
[2019-03-15] MEDS ORDERED: TYLENOL PO PRN (15:21)
--- NOTE | 2019-03-15 15:21 | History and Physical Report ---
History of Present Illness Chief complaint: I need dialysis History of present illness: 33 YO Male with ESRD on HD(T,R,Sa) last dialyzed on thursday, HIV, HTN, DM complicated by Gastroparesis, Gastritis presents to ED for evaluation. Pt states that he has experienced nausea, 2 episodes of vomiting, and abdominal discomfort today. Pt presented to dialysis for his routine scheduled dialysis and was found to have elevated blood pressure. EMS was notified, and the patient was transported to [facility]. Pt seen and evaluated in ED and found to have ESRD, Gastroparesis, Hypertensive Urgency with blood pressure of 206/124. Pt admitted to medical floor. Nephrology consulted in ED for urgent dialysis. PT denies fever, chills, CP, Palpitations, trauma, BRBPR, productive cough, skin rash, Headache, ingestion of food/water from new or different sources, or recent ill contacts. Prior admission of 03/01/19 reviewed. All medication listed at time of admission was reconciled. Past History Past Medical History: diabetes, ESRD, HIV/AIDS, hyperlipidemia, other (Gastroparesis) Past Surgical History: cholecystectomy, Other (Port placement) Social history: single. denies: smoking, alcohol abuse, prescription drug abuse Family history: diabetes, hypertension Medications and Allergies Allergies Allergy/AdvReac Type Severity Reaction Status Date / Time Penicillins Allergy Hives Verified 02/11/19 14:13 Home Medications Medication Instructions Recorded Confirmed Last Taken Type Labetalol [Labetalol 200mg TAB] 200 mg PO BID #60 tablet 03/02/19 03/15/19 03/07/19 Rx amLODIPine [Norvasc] 5 mg PO DAILY #30 tablet 03/02/19 03/15/19 03/15/19 Rx hydrALAZINE [Apresoline TAB] 100 mg PO TID #30 tab 03/02/19 03/15/19 03/15/19 Rx Metoclopramide [Reglan TAB] 10 mg PO TID #30 tab 03/08/19 03/15/19 Unknown Rx methOCARBAMOL [Robaxin TAB] 500 mg PO Q8HR PRN #20 tablet 03/08/19 03/15/19 Unknown Rx traMADol [Ultram] 50 mg PO Q6HR PRN #7 tablet 03/08/19 03/15/19 Unknown Rx Ferrous Sulfate [Feosol] 325 mg PO QDAY 03/14/19 03/15/19 Unknown History HYDROcodone/APAP 5-325 [[place] 1 each PO Q6HR PRN #20 tablet 03/14/19 03/15/19 Unknown Rx 5/325] Ondansetron [Zofran Odt] 4 mg PO Q8HR PRN #20 tab.rapdis 03/14/19 03/15/19 Unknown Rx Active Meds: Active Medications Sodium Chloride (Nacl 0.9%) 100 mls @ 999 mls/hr IV TORY PRN PRN Reason: Hypotension Review of Systems Constitutional: no weight loss, no weight gain, no fever, no chills Ears, nose, mouth and throat: no ear pain, no ear discharge, no tinnitis, no decreased hearing, no nasal congestion Cardiovascular: no chest pain, no orthopnea, no palpitations, no rapid/irregular heart beat, no edema Respiratory: no cough, no cough with sputum, no excessive sputum Gastrointestinal: nausea, vomiting, other (abdominal discomfort) Genitourinary Male: no hematuria, no flank pain, no discharge, no urinary frequency, no urinary hesitancy Rectal: no pain, no bleeding Musculoskeletal: no shooting arm pain, no arm numbness/tingling Integumentary: no rash, no pruritis, no sores, no wounds, no jaundice, no boils Neurological: no transient paralysis, no paralysis, no weakness, no numbness, no seizures, no syncope, no ataxia Psychiatric: no anxiety, no memory loss, no change in sleep habits, no insomnia, no hypersomnia, no change in libido, no suicidal ideation Endocrine: no cold intolerance, no polyphagia, no excessive thirst, no polydipsia, no polyuria, no excessive sweating Hematologic/Lymphatic: no easy bruising, no easy bleeding, no lymphadenopathy Allergic/Immunologic: no persistent infections, no anaphylaxis, no angioedema Exam - Constitutional Vitals: Temp Pulse Resp BP Pulse Ox 97.7 F 97 H 14 144/96 93 03/15/19 12:40 03/15/19 14:30 03/15/19 14:30 03/15/19 14:30 03/15/19 14:30 General appearance: Present: mild distress, obese - EENT Eyes: Present: PERRL ENT: hearing intact, clear oral mucosa - Neck Neck: Present: supple, normal ROM - Respiratory Respiratory effort: normal Respiratory: bilateral: CTA - Cardiovascular Heart Sounds: Present: S1 & S2. Absent: rub, click - Extremities Extremities: pulses symmetrical, No edema Peripheral Pulses: within normal limits - Abdominal General gastrointestinal: Present: soft, non-tender, non-distended, normal bowel sounds Male genitourinary: Present: normal - Integumentary Integumentary: Present: clear, warm, dry - Musculoskeletal Musculoskeletal: gait normal, strength equal bilaterally - Psychiatric Psychiatric: appropriate mood/affect, intact judgment & insight - Neurologic Neurologic: CNII-XII intact, moves all extremities Results - Labs CBC & Chem 7: 03/15/19 13:18 03/15/19 13:18 Labs: Abnormal lab results 03/15/19 03/15/19 Range/Units 13:18 13:18 RBC 3.35 L (3.65-5.03) M/mm3 Hgb 9.9 L (11.8-15.2) gm/dl Hct 29.1 L (35.5-45.6) % Seg Neutrophils % 75.7 H (40.0-70.0) % Potassium 3.3 L (3.6-5.0) mmol/L Chloride 95.7 L (98-107) mmol/L Creatinine 3.7 H (0.8-1.5) mg/dL Glucose 243 H (75-100) mg/dL Albumin 3.2 L (3.9-5) g/dL Assessment and Plan - Patient Problems (1) ESRD (end stage renal disease) Current Visit: Yes Status: Chronic Plan to address problem: Nephrology consulted in ED, dialysis as per renal team, strict I/O, daily weight, monitor uop q shift, avoid nephrotoxic agents. (2) Hypertensive urgency, malignant Current Visit: Yes Status: Acute Plan to address problem: IV hydralazine prn, continue prehospital medication, monitor bp q shift, urgent dialysis, (3) HIV (human immunodeficiency virus infection) Current Visit: No Status: Chronic Qualifiers: Plan to address problem: supportive care, outpatient ID f/u care. (4) Diabetes Current Visit: Yes Status: Acute Plan to address problem: ADA diet, insulin, accu check, hypoglycemia protocol (5) Gastroparesis Current Visit: Yes Status: Acute Plan to address problem: frequent small meals, supportive care, (6) DVT prophylaxis Current Visit: No Status: Acute Plan to address problem: SCD to BLE while in bed, PT ambulatory
[2019-03-15] MEDS ORDERED: ZOFRAN ODT PO PRN (15:24)
[2019-03-15] MEDS ORDERED: ULTRAM PO PRN (15:24)
[2019-03-15] MEDS ORDERED: ROBAXIN PO PRN (15:24)
--- NOTE | 2019-03-15 19:45 | Consultation ---
History of Present Illness - Reason for Consult Consult date: 03/15/19 end stage renal disease Requesting physician: DARLING SOW - History of Present Illness 33-year-old male known to our service with diabetes mellitus, HIV and incisional disease on hemodialysis since December 2018. Patient was sent in from [facility] to live with his mother. Presents on account of 2 days history of nausea vomiting with abdominal pain. Patient went to dialysis and blood p ressure was as high as 206/1 24 mmHg and so was sent to emergency room for further evaluation. He had taken his antihypertensive medications but he doubts that he was able to keep them all down because of the vomiting. He had been seen in the emergency room the previous day with similar symptoms and he was prescribed medications which was not able to fill due to financial constraints. Describes abdominal pain as sharp/cramping was in the low abdomen nonradiating with no diarrhea or vomiting. I was called about the patient earlier and gave orders for emergent dialysis. 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 denies: smoking (quit in his late 20s), alcohol abuse, prescription drug abuse Family history: diabetes (both parents), hypertension (father), other (2 brothers and one sister alive and well) Medications and Allergies Allergies Allergy/AdvReac Type Severity Reaction Status Date / Time Penicillins Allergy Hives Verified 02/11/19 14:13 tramadol AdvReac Vomiting Verified 03/16/19 07:07 Home Medications Medication Instructions Recorded Confirmed Last Taken Type Labetalol [Labetalol 200mg TAB] 200 mg PO BID #60 tablet 03/02/19 03/15/19 Rx amLODIPine [Norvasc] 5 mg PO DAILY #30 tablet 03/02/19 03/15/19 03/15/19 Rx hydrALAZINE [Apresoline TAB] 100 mg PO TID #30 tab 03/02/19 03/15/19 03/15/19 Rx Metoclopramide [Reglan TAB] 10 mg PO TID #30 tab 03/08/19 03/15/19 Unknown Rx methOCARBAMOL [Robaxin TAB] 500 mg PO Q8HR PRN #20 tablet 03/08/19 03/15/19 Unknown Rx traMADol [Ultram] 50 mg PO Q6HR PRN #7 tablet 03/08/19 03/15/19 Unknown Rx Ferrous Sulfate [Feosol] 325 mg PO QDAY 03/14/19 03/15/19 Unknown History HYDROcodone/APAP 5-325 [[place] 1 each PO Q6HR PRN #20 tablet 03/14/19 03/15/19 Unknown Rx 5/325] Ondansetron [Zofran Odt] 4 mg PO Q8HR PRN #20 tab.rapdis 03/14/19 03/15/19 Unknown Rx Active Meds: Active Medications Acetaminophen (Tylenol) 650 mg PO Q4H PRN PRN Reason: Pain MILD(1-3)/Fever >100.5/CHOUDHARY Acetaminophen/Hydrocodone Bitart ([place] 5/325) 1 each PO Q4H PRN PRN Reason: Pain, Moderate (4-6) Albuterol (Proventil) 2.5 mg IH Q4HRT PRN PRN Reason: Shortness Of Breath Amlodipine Besylate (Norvasc) 5 mg PO DAILY SHIRA Ferrous Sulfate (Feosol) 325 mg PO QDAY SHIRA Hydralazine HCl (Apresoline) 100 mg PO TID SHIRA Sodium Chloride (Nacl 0.9%) 100 mls @ 999 mls/hr IV TORY PRN PRN Reason: Hypotension Labetalol HCl (Normody[place]) 200 mg PO BID SHIRA Methocarbamol (Robaxin) 500 mg PO Q8HR PRN PRN Reason: Muscle Spasm Metoclopramide HCl (Reglan) 5 mg PO TID SHIRA Ondansetron HCl (Zofran) 4 mg IV Q8H PRN PRN Reason: Nausea And Vomiting Ondansetron HCl (Zofran Odt) 4 mg PO Q8HR PRN PRN Reason: Nausea And Vomiting Sodium Chloride (Sodium Chloride Flush Syringe 10 Ml) 10 ml IV BID SHIRA Sodium Chloride (Sodium Chloride Flush Syringe 10 Ml) 10 ml IV PRN PRN PRN Reason: LINE FLUSH Tramadol HCl (Ultram) 50 mg PO Q6HR PRN PRN Reason: Pain Review of Systems All systems: negative (Constitutional: [place] he was febrile to touch at home. No chills. No anorexia or weight loss. HEENT: No sore throat or sinus drainage no hearing or vision impairment . Cardiovascular: Had some sharp pain in his lower chest. No shortness of breath, palpitations, lower extremity swelling or dizziness. Respiratory: Has been coughing but it has been nonproductive. No, sputum, shortness of breath, hemoptysis or wheezing. Gastrointestinal: See history of present illness. Had one episode of hematemesis. No melena. Genitourinary: Urine output has been improving the last few days. No frequency urgency dysuria or hematuria. hematologic: No abnormal bleeding admits to easy bruising. Integumentary: no pruritus or rash. Neurological: No headache no focal weakness or numbness, no syncope or seizures. Musculoskeletal: No joint pains but admits to stiffness in his legs. Psychiatry: Admits to both anxiety and depression) Exam - Vital Signs Vital signs: Vital Signs Pulse Resp Pulse Ox 107 H 11 L 97 03/15/19 12:36 03/15/19 12:36 03/15/19 12:36 - Physical Exam Narrative exam: Middle-aged male lying in bed in no acute distress HEENT: NCAT, pink oral mucous membrane Neck: Supple, no venous distention CVS: S1S2 RRR with no murmur, rub or gallop Chest: Clear to auscultation Abdomen: Protuberant, soft, mild tenderness in suprapubic area, no organomegaly, bowel sounds are present Extremities: No edema Neuro: Awake, alert no focal deficits Results - Lab Results 03/16/19 05:29 03/16/19 05:29 Most recent lab results Calcium 8.4 mg/dL (8.4-10.2) 03/15/19 13:18 Assessment and Plan - Patient Problems (1) Gastroparesis Current Visit: Yes Status: Acute Plan to address problem: Antiemetics. Consider GI evaluation if persists (2) Hypertensive urgency, malignant Current Visit: Yes Status: Acute Plan to address problem: Resume oral antihypertensive medications since patient tolerating orally now (3) ESRD (end stage renal disease) Current Visit: Yes Status: Chronic Plan to address problem: Patient received emergent dialysis. Resume regular dialysis schedule on Thursday, and Thursday schedule (4) Abdominal pain Current Visit: No Status: Acute Plan to address problem: Probably related to gastroparesis/GERD. Proton pump inhibitor and antiemetic per Primary attending. Consider GI evaluation if persists (5) HIV (human immunodeficiency virus infection) Current Visit: No Status: Chronic Qualifiers: Plan to address problem: Antiretrovirals per Infectious disease. Patient has an appointment to see (6) Hypertensive chronic kidney disease with stage 5 chronic kidney disease or end stage renal disease Current Visit: No Status: Chronic Plan to address problem: Follow blood pressure (7) Type 2 diabetes mellitus Current Visit: No Status: Chronic Qualifiers: Diabetes mellitus intermediate card tender insulin use: with usp use Plan to address problem: Blood sugar management by primary attending
[2019-03-15] MEDS: APRESOLINE PO SCH (20:00)
[2019-03-15] MEDS: REGLAN PO SCH (20:01)
[2019-03-15] MEDS: NORCO 5/325 PO PRN (20:01)
[2019-03-15] MEDS ORDERED: NACL 0.9 (PRIMING MACHINE ONLY DIALYSIS) MC ONE (21:04)
[2019-03-15] MEDS: NORMODYNE PO SCH (21:51)
[2019-03-15] MEDS: SODIUM CHLORIDE FLUSH SYRINGE 10 ML IV SCH (21:54)
[2019-03-16 06:00] LABS: Basophils % (Auto) 0.7 % (0.0-1.8); Eosinophils # (Auto) 0.1 K/mm3 (0.0-0.4); Eosinophils % (Auto) 1.3 % (0.0-4.3); Hematocrit 28.1 % (35.5-45.6); Hemoglobin 9.3 gm/dl (11.8-15.2); Lymphocytes # (Auto) 1.3 K/mm3 (1.2-5.4); Lymphocytes % (Auto) 18.8 % (13.4-35.0); Mean Corpuscular HGB Conc 33 % (32-34); Mean Corpuscular Volume 88 fl (84-94); Monocytes # (Auto) 0.5 K/mm3 (0.0-0.8); Monocytes % (Auto) 7.9 % (0.0-7.3); Platelet Count 275 K/mm3 (140-440); Red Blood Count 3.19 M/mm3 (3.65-5.03); Red Cell Distribution Width 15.6 % (13.2-15.2)
[2019-03-16] MEDS: NORCO 5/325 PO PRN ×4 (06:01→23:38)
[2019-03-16 06:23] LABS: Albumin 3.1 g/dL (3.9-5); Calcium 8.5 mg/dL (8.4-10.2)
--- NOTE | 2019-03-16 08:01 | Progress Note ---
Assessment and Plan Assessment and plan: 33 YO Male with ESRD on HD(T,R,Sa) last dialyzed on thursday, HIV, HTN, DM complicated by Gastroparesis, Gastritis presents to ED for evaluation. Pt states that he has experienced nausea, 2 episodes of vomiting, and abdominal discomfort today. Pt presented to dialysis for his routine scheduled dialysis and was found to have elevated blood pressure. EMS was notified, and the patient was transported to [facility]. Pt seen and evaluated in ED and found to have ESRD, Gastroparesis, Hypertensive Urgency with blood pressure of 206/124. Pt admitted to medical floor. Nephrology consulted in ED for urgent dialysis. PT denies fever, chills, CP, Palpitations, trauma, BRBPR, productive cough, skin rash, Headache, ingestion of food/water from new or different sources, or recent ill contacts. Prior admission of 03/01/19 reviewed was for similar. All medication listed at time of admission was reconciled. (1) ESRD (end stage renal disease) Current Visit: Yes Status: Chronic Plan to address problem: Nephrology consulted in ED, dialysis as per renal team, strict I/O, daily weight, monitor uop q shift, avoid nephrotoxic agents. (2) Hypertensive urgency, malignant Current Visit: Yes Status: Acute Plan to address problem: IV hydralazine prn, continue prehospital medication, monitor bp q shift, urgent dialysis, improved. Discussed with Home Agent. Will stop Norvasc and start Clonidin patch at 0.2 q week and patient will be discharged on this if stable in am. (3) HIV (human immunodeficiency virus infection) Current Visit: No Status: Chronic Qualifiers: Plan to address problem: supportive care, outpatient ID f/u care. (4) Diabetes Current Visit: Yes Status: Acute Plan to address problem: ADA diet, insulin, accu check, hypoglycemia protocol (5) Gastroparesis Current Visit: Yes Status: Acute Plan to address problem: frequent small meals, supportive care, PRIOR GI work up, unyeliding Continue outpatient follow up with GI prn. Get Kub ?TRIAL OF REGLAN. (6) Anemia of chronic disease Stable. (7)DVT prophylaxis Current Visit: No Status: Acute Plan to address problem: SCD to BLE while in bed, PT ambulatory History Interval history: Patient seen and examined, admitted with Hypertensive Urgency secondary to inability to take meds due to Nausea, vomiting and abdominal pain. No further complaints this am, No prior issue with clonidine patch tried in house in the past per patient. Tolerated diet this am Hospitalist Physical - Physical exam Narrative exam: General appearance: Present: Resting comfortable, obese - EENT Eyes: Present: PERRL ENT: hearing intact, clear oral mucosa - Neck Neck: Present: supple, normal ROM - Respiratory Respiratory effort: normal Respiratory: bilateral: CTA - Cardiovascular Heart Sounds: Present: S1 & S2. Absent: rub, click - Extremities Extremities: pulses symmetrical, No edema Peripheral Pulses: within normal limits - Abdominal General gastrointestinal: Present: soft, non-tender, non-distended, normal bowel sounds Male genitourinary: Present: normal - Integumentary Integumentary: Present: clear, warm, dry - Musculoskeletal Musculoskeletal: gait normal, strength equal bilaterally - Psychiatric Psychiatric: appropriate mood/affect, intact judgment & insight - Neurologic Neurologic: CNII-XII intact, moves all extremities - Constitutional Vitals: Temp Pulse Resp BP Pulse Ox 99.6 F 94 H 20 147/84 96 03/16/19 05:17 03/16/19 05:17 03/16/19 05:17 03/16/19 05:17 03/16/19 05:17 General appearance: Present: mild distress, obese Results - Labs CBC & Chem 7: 03/16/19 05:29 03/16/19 05:29 Labs: Laboratory Last Values WBC 6.7 K/mm3 (4.5-11.0) 03/16/19 05:29 RBC 3.19 M/mm3 (3.65-5.03) L 03/16/19 05:29 Hgb 9.3 gm/dl (11.8-15.2) L 03/16/19 05:29 Hct 28.1 % (35.5-45.6) L 03/16/19 05:29 MCV 88 fl (84-94) 03/16/19 05:29 MCH 29 pg (28-32) 03/16/19 05:29 MCHC 33 % (32-34) 03/16/19 05:29 RDW 15.6 % (13.2-15.2) H 03/16/19 05:29 Plt Count 275 K/mm3 (140-440) 03/16/19 05:29 Lymph % (Auto) 18.8 % (13.4-35.0) 03/16/19 05:29 Pine % (Auto) 7.9 % (0.0-7.3) H 03/16/19 05:29 Eos % (Auto) 1.3 % (0.0-4.3) 03/16/19 05:29 Baso % (Auto) 0.7 % (0.0-1.8) 03/16/19 05:29 Lymph # 1.3 K/mm3 (1.2-5.4) 03/16/19 05:29 Pine # 0.5 K/mm3 (0.0-0.8) 03/16/19 05:29 Eos # 0.1 K/mm3 (0.0-0.4) 03/16/19 05:29 Baso # 0.0 K/mm3 (0.0-0.1) 03/16/19 05:29 Seg Neutrophils % 71.3 % (40.0-70.0) H 03/16/19 05:29 Seg Neutrophils # 4.8 K/mm3 (1.8-7.7) 03/16/19 05:29 Sodium 137 mmol/L (137-145) 03/16/19 05:29 Potassium 3.2 mmol/L (3.6-5.0) L 03/16/19 05:29 Chloride 95.7 mmol/L (98-107) L 03/16/19 05:29 Carbon Dioxide 31 mmol/L (22-30) H 03/16/19 05:29 14 mmol/L 03/16/19 05:29 BUN 13 mg/dL (9-20) 03/16/19 05:29 3.4 mg/dL (0.8-1.5) H 03/16/19 05:29 Estimated GFR 26 ml/min 03/16/19 05:29 4 % 03/16/19 05:29 Glucose 193 mg/dL (75-100) H 03/16/19 05:29 Calcium 8.5 mg/dL (8.4-10.2) 03/16/19 05:29 0.40 mg/dL (0.1-1.2) 03/16/19 05:29 AST 16 units/L (5-40) 03/16/19 05:29 ALT 16 units/L (7-56) 03/16/19 05:29 110 units/L (35-129) 03/16/19 05:29 6.9 g/dL (6.3-8.2) 03/16/19 05:29 3.1 g/dL (3.9-5) L 03/16/19 05:29 0.8 % 03/16/19 05:29 Active Medications - Current Medications Current Medications: Generic Name Dose Route Start Last Admin Trade Name Freq PRN Reason Stop Dose Admin Acetaminophen 650 mg 03/15/19 15:21 Tylenol PO Q4H PRN Pain MILD(1-3)/Fever >100.5/CHOUDHARY Acetaminophen/Hydrocodone Bitart 1 each 03/15/19 15:32 03/16/19 06:01 [place] 5/325 PO 1 each Q4H PRN Administration Pain, Moderate (4-6) Albuterol 2.5 mg 03/15/19 15:21 Proventil IH Q4HRT PRN Shortness Of Breath Amlodipine Besylate 5 mg 03/16/19 10:00 Norvasc PO DAILY SHIRA Dicyclomine HCl 20 mg 03/16/19 10:00 Bentyl PO QID SHIRA Ferrous Sulfate 325 mg 03/16/19 10:00 Feosol PO QDAY SHIRA Hydralazine HCl 100 mg 03/15/19 20:00 03/15/19 20:00 Apresoline PO 100 mg TID SHIRA Administration Sodium Chloride 100 mls @ 999 mls/hr 03/15/19 14:36 Nacl 0.9% IV TORY PRN Hypotension Labetalol HCl 200 mg 03/15/19 22:00 03/15/19 21:51 Normodyne PO 200 mg BID SHIRA Administration Methocarbamol 500 mg 03/15/19 15:24 03/15/19 20:00 Robaxin PO 500 mg Q8HR PRN Administration Muscle Spasm Metoclopramide HCl 5 mg 03/15/19 20:00 03/15/19 20:01 Reglan PO 5 mg TID SHIRA Administration Ondansetron HCl 4 mg 03/15/19 15:21 Zofran IV Q8H PRN Nausea And Vomiting Ondansetron HCl 4 mg 03/15/19 15:24 Zofran Odt PO Q8HR PRN Nausea And Vomiting Sodium Chloride 10 ml 03/15/19 22:00 03/15/19 21:54 Sodium Chloride Flush Syringe 10 Ml IV 10 ml BID SHIRA Administration Sodium Chloride 10 ml 03/15/19 15:21 Sodium Chloride Flush Syringe 10 Ml IV PRN PRN LINE FLUSH Tramadol HCl 50 mg 03/15/19 15:24 Ultram PO Q6HR PRN Pain
[2019-03-16] MEDS: REGLAN PO SCH ×4 (09:03→18:10)
[2019-03-16] MEDS: APRESOLINE PO SCH ×3 (09:03→21:33)
[2019-03-16] MEDS ORDERED: NORVASC PO SCH (10:00)
[2019-03-16] MEDS ORDERED: BENTYL PO SCH (10:00)
[2019-03-16] MEDS: BENTYL PO SCH ×4 (11:28→21:32)
[2019-03-16] MEDS: FEOSOL PO SCH (11:28)
[2019-03-16] MEDS: NORMODYNE PO SCH ×2 (11:28→21:33)
[2019-03-16] MEDS: SODIUM CHLORIDE FLUSH SYRINGE 10 ML IV SCH ×2 (11:29→22:00)
[2019-03-16] MEDS ORDERED: CATAPRES-TTS PATCH TD SCH (12:00)
--- NOTE | 2019-03-16 12:27 | Progress Note ---
Assessment and Plan - Patient Problems (1) ESRD (end stage renal disease) Current Visit: Yes Status: Chronic Plan to address problem: Resume regular dialysis schedule on Thursday, and Thursday schedule (2) Abdominal pain Current Visit: No Status: Acute Plan to address problem: Probably related to gastroparesis/GERD. Proton pump inhibitor and antiemetic per Primary attending. Consider GI evaluation if persists (3) Gastroparesis Current Visit: No Status: Acute Plan to address problem: Continue antiemetics. (4) HIV (human immunodeficiency virus infection) Current Visit: No Status: Chronic Qualifiers: Plan to address problem: Antiretrovirals per Infectious disease. Patient has an appointment to see (5) Hypertensive chronic kidney disease with stage 5 chronic kidney disease or end stage renal disease Current Visit: No Status: Chronic Plan to address problem: Agree with starting Catapres patch. Follow blood pressure on adjusted medications (6) Type 2 diabetes mellitus Current Visit: No Status: Chronic Qualifiers: Diabetes mellitus senior living insulin use: with child study team director use Plan to address problem: Blood sugar management by primary attending Subjective Date of service: 03/17/19 Principal diagnosis: ESRD, nausea, vomiting and abdominal pain Interval history: Patient seen lying in bed. He has no new complaints. Abdominal pain is improving. No nausea or vomiting today. Objective - Exam Narrative Exam: Middle-aged male lying in bed in no acute distress HEENT: NCAT, pink oral mucous membrane Neck: Supple, no venous distention CVS: S1S2 RRR with no murmur, rub or gallop Chest: Clear to auscultation Abdomen: Protuberant, soft, mild tenderness , no organomegaly, bowel sounds are present Extremities: No edema Neuro: Awake, alert no focal deficits - Vital Signs Vital signs: Vital Signs - 12hr 03/16/19 03/16/19 03/16/19 00:30 00:41 00:51 Temperature Pulse Rate 102 H 117 H 103 H Respiratory 23 30 H 18 Rate Blood Pressure 113/77 113/77 102/69 O2 Sat by Pulse 97 97 100 Oximetry 03/16/19 03/16/19 03/16/19 01:00 01:11 05:17 Temperature 99.6 F Pulse Rate 103 H 107 H 94 H Respiratory 15 15 20 Rate Blood Pressure 115/76 115/76 147/84 O2 Sat by Pulse 99 99 96 Oximetry 0803/16/19 03/16/19 08:07 09:02 11:21 Temperature Pulse Rate Respiratory Rate Blood Pressure 153/99 164/89 O2 Sat by Pulse 97 Oximetry 03/16/19 03/16/19 03/16/19 11:23 11:24 11:27 Temperature 98.6 F Pulse Rate 92 H Respiratory 20 Rate Blood Pressure 164/89 O2 Sat by Pulse 97 Oximetry 03/16/19 11:28 Temperature Pulse Rate Respiratory Rate Blood Pressure 164/89 O2 Sat by Pulse Oximetry - Lab 03/16/19 05:29 03/16/19 05:29 Most recent lab results Calcium 8.5 mg/dL (8.4-10.2) 03/16/19 05:29 Medications & Allergies - Medications Allergies/Adverse Reactions: Allergies Penicillins Allergy (Verified 02/11/19 14:13) Hives tramadol Adverse Reaction (Verified 03/16/19 07:07) Vomiting Home Medications: Home Medications Medication Instructions Recorded Confirmed Last Taken Type Labetalol [Labetalol 200mg TAB] 200 mg PO BID #60 tablet 03/02/19 03/15/19 03/07/19 Rx amLODIPine [Norvasc] 5 mg PO DAILY #30 tablet 03/02/19 03/15/19 03/15/19 Rx hydrALAZINE [Apresoline TAB] 100 mg PO TID #30 tab 03/02/19 03/15/19 03/15/19 Rx Metoclopramide [Reglan TAB] 10 mg PO TID #30 tab 03/08/19 03/15/19 Unknown Rx methOCARBAMOL [Robaxin TAB] 500 mg PO Q8HR PRN #20 tablet 03/08/19 03/15/19 Un known Rx traMADol [Ultram] 50 mg PO Q6HR PRN #7 tablet 03/08/19 03/15/19 Unknown Rx Ferrous Sulfate [Feosol] 325 mg PO QDAY 03/14/19 03/15/19 Unknown History HYDROcodone/APAP 5-325 [[place] 1 each PO Q6HR PRN #20 tablet 03/14/19 03/15/19 Unknown Rx 5/325] Ondansetron [Zofran Odt] 4 mg PO Q8HR PRN #20 tab.rapdis 03/14/19 03/15/19 Unknown Rx Active Medications: Generic Name Dose Route Start Last Admin Trade Name Freq PRN Reason Stop Dose Admin Acetaminophen 650 mg 03/15/19 15:21 Tylenol PO Q4H PRN Pain MILD(1-3)/Fever >100.5/CHOUDHARY Acetaminophen/Hydrocodone Bitart 1 each 03/15/19 15:32 03/16/19 06:01 [place] 5/325 PO 1 each Q4H PRN Administration Pain, Moderate (4-6) Albuterol 2.5 mg 03/15/19 15:21 Proventil IH Q4HRT PRN Shortness Of Breath Clonidine HCl 0.2 mg 03/16/19 12:00 03/16/19 11:27 Catapres-Tts Patch TD 0.2 mg We@1000 SHIRA Administration Dicyclomine HCl 20 mg 03/16/19 10:00 03/16/19 11:28 Bentyl PO 20 mg QID SHIRA Administration Ferrous Sulfate 325 mg 03/16/19 10:00 03/16/19 11:28 Feosol PO 325 mg QDAY SHIRA Administration Hydralazine HCl 100 mg 03/15/19 20:00 03/16/19 09:03 Apresoline PO 100 mg TID SHIRA Administration Sodium Chloride 100 mls @ 999 mls/hr 03/15/19 14:36 Nacl 0.9% IV TORY PRN Hypotension Labetalol HCl 200 mg 03/15/19 22:00 03/16/19 11:28 Normodyne PO 200 mg BID SHIRA Administration Methocarbamol 500 mg 03/15/19 15:24 03/15/19 20:00 Robaxin PO 500 mg Q8HR PRN Administration Muscle Spasm Metoclopramide HCl 5 mg 03/16/19 08:20 03/16/19 09:03 Reglan PO 5 mg TIDAC SHIRA Administration Ondansetron HCl 4 mg 03/15/19 15:21 Zofran IV Q8H PRN Nausea And Vomiting Ondansetron HCl 4 mg 03/15/19 15:24 Zofran Odt PO Q8HR PRN Nausea And Vomiting Sodium Chloride 10 ml 03/15/19 22:00 03/16/19 11:29 Sodium Chloride Flush Syringe 10 Ml IV 10 ml BID SHIRA Administration Sodium Chloride 10 ml 03/15/19 15:21 Sodium Chloride Flush Syringe 10 Ml IV PRN PRN LINE FLUSH
--- NOTE | 2019-03-16 12:35 | XRay Report ---
ABDOMEN 1 VIEW(S) INDICATION / CLINICAL INFORMATION: abdominal pain. COMPARISON: None available. FINDINGS: TUBES / LINES: None. BOWEL GAS PATTERN/EXTRALUMINAL GAS: No significant abnormality. No pneumatosis or secondary signs of free air. ADDITIONAL FINDINGS: No significant additional findings. IMPRESSION: 1. No significant abnormality. Signer Name: Viraj Sotomayor MD Signed: 03/16/2019 12:30 PM Workstation Name: [id number]
[2019-03-17] MEDS ORDERED: APRESOLINE IV PRN (05:43)
[2019-03-17] MEDS: NORCO 5/325 PO PRN (06:00)
[2019-03-17] MEDS: REGLAN PO SCH ×3 (08:50→16:34)
[2019-03-17] MEDS: APRESOLINE PO SCH ×2 (08:51→16:34)
[2019-03-17] MEDS: NORMODYNE PO SCH (09:07)
[2019-03-17] MEDS: FEOSOL PO SCH (09:09)
[2019-03-17] MEDS: SODIUM CHLORIDE FLUSH SYRINGE 10 ML IV SCH (09:11)
[2019-03-17] MEDS: BENTYL PO SCH ×2 (09:21→16:33)
[2019-03-17] MEDS ORDERED: COZAAR PO SCH (10:00)
[2019-03-17] MEDS ORDERED: NORVASC PO SCH ×2 (10:00)
--- NOTE | 2019-03-17 10:02 | Discharge Summary ---
Providers - Providers Date of Admission: 03/15/19 15:21 Attending physician: XOCHITL OSULLIVAN MD 03/15/19 14:35 Consult to Physician [CONS] Stat Comment: Consulting Provider: MARCO A RAZA Physician Instructions: Reason For Exam: dialysis [facility] Reason for admission: Gastroparesis Condition: Stable Hospital course: 33 YO Male with ESRD on HD(T,R,Sa) last dialyzed on thursday, HIV, HTN, DM complicated by Gastroparesis, Gastritis presents to ED for evaluation. Pt states that he has experienced nausea, 2 episodes of vomiting, and abdominal discomfort today. Pt presented to dialysis for his routine scheduled dialysis and was found to have elevated blood pressure. EMS was notified, and the patient was transported to [facility]. Pt seen and evaluated in ED and found to have ESRD, Gastroparesis, Hypertensive Urgency with blood pressure of 206/124. Pt admitted to medical floor. Nephrology consulted in ED for urgent dialysis. PT denies fever, chills, CP, Palpitations, trauma, BRBPR, productive cough, skin rash, Headache, ingestion of food/water from new or different sources, or recent ill contacts. Prior admission of 03/01/19 reviewed was for similar. All medication listed at time of admission was reconciled. * Patient underwent dialysis and Nausea vomiting resolved * We discussed with No Bake Molder and added catapress patch * The patient will follow with GI outpatient (1) ESRD (end stage renal disease) (2) Hypertensive urgency, malignant (3) HIV (human immunodeficiency virus infection) (4) Diabetes (5) Gastroparesis (6) Anemia of chronic disease Disposition: TO HOME OR SELFCARE Time spent for discharge: 35 mins Core Measure Documentation - Palliative Care Palliative Care/ Comfort Measures: Not Applicable - Core Measures Any of the following diagnoses?: none Exam - Physical Exam Narrative exam: General appearance: Present: Resting comfortable, obese - EENT Eyes: Present: PERRL ENT: hearing intact, clear oral mucosa - Neck Neck: Present: supple, normal ROM - Respiratory Respiratory effort: normal Respiratory: bilateral: CTA - Cardiovascular Heart Sounds: Present: S1 & S2. Absent: rub, click - Extremities Extremities: pulses symmetrical, No edema Peripheral Pulses: within normal limits - Abdominal General gastrointestinal: Present: soft, non-tender, non-distended, normal bowel sounds Male genitourinary: Present: normal - Integumentary Integumentary: Present: clear, warm, dry - Musculoskeletal Musculoskeletal: gait normal, strength equal bilaterally - Psychiatric Psychiatric: appropriate mood/affect, intact judgment & insight - Neurologic Neurologic: CNII-XII intact, moves all extremities - Constitutional Vitals: Temp Pulse Resp BP Pulse Ox 98.5 F 104 H 20 168/86 95 03/17/19 09:47 03/17/19 09:47 03/17/19 09:47 03/17/19 09:47 03/17/19 09:47 Plan Activity: advance as tolerated, fall precautions Diet: diabetic, renal Special Instructions: record daily BP diary, record blood sugar diary [facility] [Primary Care Provider] - 3-5 Days TIMOTEO SABA MD [Staff Physician] - 7 Days CACHORRO DUFF MD [Staff Physician] - 7 Days Prescriptions: Dicyclomine [Bentyl] 20 mg PO QID #30 tablet cloNIDine-TTS PATCH [Catapres-Tts 0.2mg Patch] 0.2 mg TD We@1000 #10 patch Losartan [Cozaar] 50 mg PO QDAY #30 tablet
[2019-03-17] MEDS ORDERED: NACL 0.9% 100 ML IV PRN (10:56)
[2019-03-17 13:24] LABS: Hepatitis B Surface Antigen Non-Reactive (Negative); Hepatitis C Virus Antibody Non-Reactive (NonReactive)
[2019-03-17] MEDS ORDERED: NACL 0.9 (PRIMING MACHINE ONLY DIALYSIS) MC ONE (15:21)
[2019-03-17 16:35] VITALS: BP 148/96
== END 2019-03-17 17:45 | disposition home or self-care (01) | DRG 73 ==
LOC: ED 12:25 → 3A 15:21
PROVIDERS: ADMIT Internal Medicine; ATTEND Internal Medicine
PROC: 5A1D70Z Performance of Urinary Filtration, Intermittent, Less than 6 Hours Per Day (ICD-10-PCS; principal; 2019-03-15)
PROC: 5A1D70Z Performance of Urinary Filtration, Intermittent, Less than 6 Hours Per Day (ICD-10-PCS; 2019-03-17)
DX: E11.43 Type 2 diabetes mellitus with diabetic autonomic (poly)neuropathy (principal); N18.6 End stage renal disease; B20 Human immunodeficiency virus [HIV] disease; I12.0 Hypertensive chronic kidney disease with stage 5 chronic kidney disease or end stage renal disease; I16.0 Hypertensive urgency; K31.84 Gastroparesis; D63.8 Anemia in other chronic diseases classified elsewhere; K29.70 Gastritis, unspecified, without bleeding; Z99.2 Dependence on renal dialysis; Z90.49 Acquired absence of other specified parts of digestive tract; Z82.49 Family history of ischemic heart disease and other diseases of the circulatory system; Z83.3 Family history of diabetes mellitus; Z88.0 Allergy status to penicillin; Z79.899 Other long term (current) drug therapy
CPT/HCPCS: 36415; 74018; 80053; 80074; 85025; 87116; 93005; 93010; 96372; 96374; 96375; G0378; J0360; J0500; J1200; J2405; J2765; J7030

== ENCOUNTER 2019-03-31 10:56 | Emergency (ER) | payer OTHER ==
[2019-03-31] MEDS ORDERED: XYLOCAINE 2% INFILTRATI ONE (15:29)
--- NOTE | 2019-03-31 15:33 | Emergency Department Report ---
Abscess Boil HPI - HPI Chief Complaint: Skin/Abscess/Foreign Body Stated Complaint: ABCESS/FACE SWELLING/PAIN Time Seen by Provider: 03/31/19 15:28 Location: Head Severity: None History: Yes Pain, Yes Purulent Drainage, No Fever, No Numbness, No Foreign Body, No Previous History, No Insect Bite HPI: 33-year-old -[place] male. Past medical history of renal insu fficiency due to diabetes and currently undertaken dialysis. Position was department complaining of abscesses before here. He went to dialysis today, but they refused to initiate his dialysis procedures did want him to come to the emergency department this checked out reports no fever, chills, sweats. Does have throbbing pain to the area, which is more tender with palpation. He reports some scant discharge from the wound as well. Home Medications: Previous Rx's Medication Instructions Recorded Last Taken Type Labetalol [Labetalol 200mg TAB] 200 mg PO BID #60 tablet 03/02/19 03/07/19 Rx amLODIPine [Norvasc] 5 mg PO DAILY #30 tablet 03/02/19 03/15/19 Rx hydrALAZINE [Apresoline TAB] 100 mg PO TID #30 tab 03/02/19 03/15/19 Rx Metoclopramide [Reglan TAB] 10 mg PO TID #30 tab 03/08/19 Unknown Rx Ondansetron [Zofran ODT TAB] 4 mg PO Q8HR PRN #20 tab.rapdis 03/14/19 Unknown Rx Losartan [Cozaar] 50 mg PO QDAY #30 tablet 03/17/19 Unknown Rx cloNIDine-TTS PATCH [Catapres-Tts 0.2 mg TD We@1000 #10 patch 03/17/19 Unknown Rx 0.2mg Patch] Chlorhexidine Gluconate [Hibiclens] 10 ml TP BID #240 liquid 03/31/19 Unknown Rx Sulfamethoxazole/Trimethoprim 2 each PO BID #40 tablet 03/31/19 Unknown Rx [Bactrim DS TAB] Allergies/Adverse Reactions: Allergies Allergy/AdvReac Type Severity Reaction Status Date / Time morphine Allergy Severe Verified 03/30/19 15:21 nausea Penicillins Allergy Hives Verified 03/30/19 15:21 tramadol AdvReac Vomiting Verified 03/30/19 15:21 ED Review of Systems ROS: Stated complaint: ABCESS/FACE SWELLING/PAIN Other details as noted in HPI Comment: All other systems reviewed and negative ED Past Medical Hx - Past Medical History Previous Medical History?: Yes Hx Hypertension: Yes Hx Diabetes: Yes Hx Renal Disease: Yes Hx Headaches / Migraines: Yes (Migraines) Hx HIV: Yes Additional medical history: HIV. gastroparesis - Surgical History Past Surgical History?: Yes Hx Cholecystectomy: Yes Additional Surgical History: PORT IN CHEST - Social History Smoking Status: Never Smoker Substance Use Type: None - Medications Home Medications: Home Medications Medication Instructions Recorded Confirmed Last Taken Type Labetalol [Labetalol 200mg TAB] 200 mg PO BID #60 tablet 03/02/19 03/30/19 03/07/19 Rx amLODIPine [Norvasc] 5 mg PO DAILY #30 tablet 03/02/19 03/30/19 03/15/19 Rx hydrALAZINE [Apresoline TAB] 100 mg PO TID #30 tab 03/02/19 03/30/19 03/15/19 Rx Metoclopramide [Reglan TAB] 10 mg PO TID #30 tab 03/08/19 03/30/19 Unknown Rx Ondansetron [Zofran ODT TAB] 4 mg PO Q8HR PRN #20 tab.rapdis 03/14/19 03/30/19 Unknown Rx Losartan [Cozaar] 50 mg PO QDAY #30 tablet 03/17/19 03/30/19 Unknown Rx cloNIDine-TTS PATCH [Catapres-Tts 0.2 mg TD We@1000 #10 patch 03/17/19 03/30/19 Unknown Rx 0.2mg Patch] Chlorhexidine Gluconate [Hibiclens] 10 ml TP BID #240 liquid 03/31/19 Unknown Rx Sulfamethoxazole/Trimethoprim 2 each PO BID #40 tablet 03/31/19 Unknown Rx [Bactrim DS TAB] ED Abscess Boil Physical Exam - Exam General: Vital signs noted. No distress. Alert and acting appropriately. Size: 2 cm Exam: Yes Tenderness, Yes Normal Neurologic Exam, Yes Normal Circulation, No Fluctuance, No Surrounding Cellulites/Erythema, No Lymphangitis, No Crepitation, No Heart Murmur I & D Note - I & D Note I & D Note: Home prepped and draped in aseptic fashion and anesthesia achieved with 2% lidocaine. A #11 blade was used to excise to pain. No complications. Wound was irrigated clean and procedure was tolerated well. This revealed blood loss less than 2 mL ED Course Vital Signs 03/31/19 11:01 Temperature 98.6 F Pulse Rate 107 H Respiratory 18 Rate Blood Pressure 151/98 [Left] O2 Sat by Pulse 99 Oximetry Critical care attestation.: If time is entered above; I have spent that time in minutes in the direct care of this critically ill patient, excluding procedure time. ED Disposition Clinical Impression: Abscess, Encounter for incision and drainage procedure Disposition: TO HOME OR SELFCARE Is pt being admited?: No Does the pt Need Aspirin: No Condition: Stable Instructions: Abscess Incision and Drainage (ED), Abscess (ED) Prescriptions: Sulfamethoxazole/Trimethoprim [Bactrim DS TAB] 2 each PO BID #40 tablet Chlorhexidine Gluconate [Hibiclens] 10 ml TP BID #240 liquid Referrals: [facility] [Provider Group] - 3-5 Days
[2019-03-31] MEDS ORDERED: PERCOCET 5/325 PO STA (19:40)
[2019-03-31 19:48] VITALS: BP 160/94
== END 2019-03-31 19:46 | disposition home or self-care (01) ==
LOC: ED 10:56
DX: L02.01 Cutaneous abscess of face (principal); I10 Essential (primary) hypertension; E11.9 Type 2 diabetes mellitus without complications; G43.909 Migraine, unspecified, not intractable, without status migrainosus; Z90.49 Acquired absence of other specified parts of digestive tract; Z88.0 Allergy status to penicillin; Z88.5 Allergy status to narcotic agent; Z88.6 Allergy status to analgesic agent; Z79.899 Other long term (current) drug therapy
CPT/HCPCS: 99282

== ENCOUNTER 2019-04-08 06:04 | Day surgery (SDC) | payer OTHER ==
[~2019-04-08 06:04] MED LIST: ANCEF/STERILE WATER 2 GM/20 ML 2 GM/20 ML SYRINGE IV NR; NACL 0.9% 1000 ML 1,000 ML IV SCH; PEPCID IV NR
[2019-04-08] MEDS ORDERED: XYLOCAINE 1% 20 mL ONE (07:36)
[2019-04-08] MEDS ORDERED: PAPAVERINE ONE (07:37)
[2019-04-08] MEDS ORDERED: HEPARIN 10,000 UNITS/10 ML ONE (07:37)
[2019-04-08] MEDS ORDERED: NACL P/F VIAL (10 ML) 0 ML ONE (07:37)
[2019-04-08] MEDS ORDERED: PROTAMINE SULFATE ONE (07:37)
[2019-04-08] MEDS ORDERED: SODIUM BICARBONATE ONE (07:38)
[2019-04-08] MEDS ORDERED: NACL 0.9% 500 ML 500 ML ONE (07:38)
[2019-04-08] MEDS ORDERED: NITROGLYCERIN SYRINGE 3 ML ONE ×2 (07:38→07:46)
[2019-04-08] MEDS ORDERED: RIFADIN ONE (07:38)
[2019-04-08] MEDS ORDERED: MARCAINE 0.5% INFILTRATI ONE (07:39)
[2019-04-08] MEDS ORDERED: SUBLIMAZE IV PRN (07:41)
--- NOTE | 2019-04-08 07:41 | Anesthesia Day of Surgery ---
Anesthesia Day of Surgery - Day of Surgery Patient Examined: Yes Patient H&P Reviewed: Yes Patient is NPO: Yes
--- NOTE | 2019-04-08 07:41 | Anesthesia Consultation ---
Anesthesia Consult and Med Hx Date of service: 04/08/19 - Airway Anesthetic Teeth Evaluation: Good ROM Head & Neck: Adequate Mental/Hyoid Distance: Adequate Mallampati Class: Class III Intubation Access Assessment: Possibly Difficult - Pulmonary Exam CTA: Yes - Cardiac Exam Cardiac Exam: RRR - Pre-Operative Health Status ASA Pre-Surgery Classification: ASA3 Proposed Anesthetic Plan: General - Pulmonary Hx Smoking: Yes (quit 10yrs) Hx Respiratory Symptoms: No Hx Pneumonia: Yes (12/2018; resolved) - Cardiovascular System Hx Hypertension: Yes Hx Heart Attack/AMI: No Hx Percutaneous Transluminal Coronary Angioplasty (PTCA): No Hx Cardia Arrhythmia: No - Central Nervous System Hx Seizures: No CVA: No Hx Back Pain: Yes Hx Psychiatric Problems: Yes (anxiety/depression/bipolar) - Gastrointestinal Hx Gastroesophageal Reflux Disease: No - Endocrine Hx End Stage Renal Disease: Yes (TTS; last HD 04/07/19) Hx Liver Disease: No Hx Non-Insulin Dependent Diabetes: Yes Hx Thyroid Disease: No - Hematic Hx Anemia: Yes - Other Systems Hx Obesity: Yes - Additional Comments Anesthesia Medical History Comments: HIV+
[2019-04-08] MEDS ORDERED: DIPRIVAN 10 MG/ML IV ONE (07:48)
[2019-04-08] MEDS ORDERED: XYLOCAINE MPF 2% ONE (07:49)
[2019-04-08] MEDS ORDERED: VERSED IV NR (08:00)
[2019-04-08] MEDS ORDERED: CLEOCIN 600 MG/50 mL 600 MG/50 ML BAG IV NR (09:00)
[2019-04-08] MEDS ORDERED: PEPCID IV NR (09:00)
[2019-04-08] MEDS ORDERED: HEPARIN ONE (09:21)
[2019-04-08] MEDS ORDERED: NACL 0.9% IR ONE (09:22)
[2019-04-08] MEDS ORDERED: HEPARIN SUB-Q ONE (09:23)
[2019-04-08] MEDS ORDERED: NACL 0.9% 500 ML IV ONE (10:13)
[2019-04-08] MEDS ORDERED: HEPARIN 10,000 UNITS/10 ML IV ONE (10:13)
--- NOTE | 2019-04-08 10:33 | Fluoroscopy Report ---
FLUOROSCOPY CENTRAL VENOUS DEVICE EXCHANGE HISTORY: End-stage renal disease, right permacath exchange. FINDINGS: 3 fluoroscopic images of the precordial region are presented during right permacath exchange. The fin al image demonstrates placement of a new right IJ permacath which terminates in the right atrium. No pneumothorax is visualized on the given images. Please correlate with the procedural report as needed . Signer Name: Óscar Molina Jr, MD Signed: 04/08/2019 10:28 AM Workstation Name: [id number]
[2019-04-08] MEDS ORDERED: PHENYLEPHRINE/NS Syringe 1,000 MCG/10 ML IV ONE (10:57)
--- NOTE | 2019-04-08 11:48 | Short Stay Summary ---
Short Stay Documentation Date of service: 04/08/19 Narrative H&P: See H&P - Allergies and Medications Current Medications: Allergies morphine Allergy (Verified 03/30/19 15:21) Severe nausea Penicillins Allergy (Verified 03/30/19 15:21) Hives tramadol Adverse Reaction (Verified 03/30/19 15:21) Vomiting Home Medications Medication Instructions Recorded Confirmed Last Taken Type Labetalol [Labetalol 200mg TAB] 200 mg PO BID #60 tablet 03/02/19 03/30/19 04/07/19 Rx amLODIPine [Norvasc] 5 mg PO DAILY #30 tablet 03/02/19 03/30/19 04/07/19 Rx hydrALAZINE [Apresoline TAB] 100 mg PO TID #30 tab 03/02/19 03/30/19 04/07/19 Rx Metoclopramide [Reglan TAB] 10 mg PO TID #30 tab 03/08/19 03/30/19 04/07/19 Rx Ondansetron [Zofran ODT TAB] 4 mg PO Q8HR PRN #20 tab.rapdis 03/14/19 03/30/19 04/07/19 Rx Losartan [Cozaar] 50 mg PO QDAY #30 tablet 03/17/19 03/30/19 04/07/19 Rx cloNIDine-TTS PATCH [Catapres-Tts 0.2 mg TD We@1000 #10 patch 03/17/19 03/30/19 04/07/19 Rx 0.2mg Patch] Chlorhexidine Gluconate [Hibiclens] 10 ml TP BID #240 liquid 03/31/19 04/08/19 04/07/19 Rx Sulfamethoxazole/Trimethoprim 2 each PO BID #40 tablet 03/31/19 04/08/19 04/07/19 Rx [Bactrim DS TAB] Active Medications Fentanyl (Sublimaze) 50 mcg IV Q5MIN PRN PRN Reason: Pain , Severe (7-10) Stop: 04/08/19 20:00 Sodium Chloride (Nacl 0.9% 1000 Ml) 1,000 mls @ 42 mls/hr IV DIRECT SHIRA Last Admin: 04/08/19 08:00 Dose: 42 mls/hr Documented by: Clindamycin HCl (Cleocin 600 Mg/50 Ml) 600 mg in 50 mls @ 100 mls/hr IV PREOP NR; Protocol Stop: 04/08/19 12:00 Midazolam HCl (Versed) 2 mg IV PREOP NR Stop: 04/08/19 23:59 Last Admin: 04/08/19 08:16 Dose: 2 mg Documented by: - Brief post op/procedure progress note Date of procedure: 04/08/19 Pre-op diagnosis: Complications of Dialysis Access Post-op diagnosis: same Procedure: 1. Exchange of Right Internal Jugular Permacath to 23 cm Palindrome Permacath over Wire 2. Radiologic Supervision with Interpretation 3. Creation of Left Brachial Basilic Arteriovenous Fistula Anesthesia: local, other (LMA) Surgeon: BABAR VENTURA Estimated blood loss: 50-100ml Condition: stable - Disposition Condition at discharge: Good Disposition: DC-01 TO HOME OR SELFCARE Short Stay Discharge Plan Activity: other (no heavy lifting with left arm, okay to use permacath for dialysis) Wound: other (okay to wash the wound with soap and water but do not soak in water, do not get permacath with) Follow up with: BABAR VENTURA MD [Staff Physician] - 14 Days Prescriptions: HYDROcodone/APAP 7.5-325 [[place] 7.5/325] 1 each PO Q6HR PRN #40 tablet PRN Reason: Pain
--- NOTE | 2019-04-08 11:54 | Operative Report ---
Operative Report Operative Report: Date of procedure: 04/08/2019 Pre-operative diagnosis: Complications of Dialysis Access Post-operative diagnosis: Same Procedure(s): 1. Exchange of Right Internal Jugular Permacath to 23 Cm Palindrome Permacath over Wire 2. Radiologic Supervision with Interpretation 3. Creation of Left Brachial Artery to Basilic Arteriovenous Fistula Surgeon: Bassem Wade MD Annual Greenhouse Manager: None Anesthesia: LMA EBL: 50 mL Counts: Correct Complications: None Condition: Stable Findings: Permacath placement with distal tip in the right atrium and no evidence of pneumothorax. Palpable pulse in the left radial artery at the completion of the case and palpable thrill in the fistula. Specimen: None Indication: The patient is a 33-year-old male with a history of end-stage renal disease who is currently on hemodialysis through a right internal jugular permacath. His permacath is currently malfunctioning and he requires exchange of the PermCath. He also requires long-term access in his vein mapping suggests he is an adequate candidate for creation of a brachiobasilic arteriovenous fistula. He was given the risks, benefits, and alternative procedures and consented to procedure. Description of Procedure: The patient was brought to the operating room and laid in supine position after general endotracheal anesthesia was administered the patient's right neck, chest, an indwelling permacath were prepped and draped in normal sterile fashion. A 0.035 Amplatz wire was advanced through the catheter and into the inferior vena cava and a curved hemostat was used to bluntly dissect the cuff from the surrounding tissue. The permacath was then removed leaving the wire in place and a 23 cm Palindrome was advanced over the wire with the distal tip in the right atrium. The catheter was cut the length in the hub was connected. Both ports were then aspirated and flushed and primed with the appropriate amount of heparin. The catheter was then dressed sterilely and the final fluoroscopy demonstrated no evidence of pneumothorax. The sterile field was then broken and the patient's left arm was prepped and draped in normal sterile fashion. A transverse incision was created just below the antecubital crease. Dissection was carried down to the the basilic vein using sharp dissection. The vein was dissected out both proximally and distally and suture ligated and divided distally. I then ran a 3 Fredy proximally in the vein, to ensure patency of the vein. I then flushed the vein with heparinized saline and controlled flow with a bulldog clamp. I then dissected out the brachial artery through this incision circumferentially both proximal and distal and controlled th artery with vessel loops. I placed the vessel loops on tension, controlling the flow through the artery, and created an arteriotomy using an 11 blade and Mendez scissors. I created an end to side anastomosis between the basilic vein and brachial artery using a 6-0 Prolene in running fashion. Prior to completing the anastomosis I flushed the artery both proximally and distally and then advanced a 3 Fredy proximally to break the spasm in the artery. I completed the anastomosis and removed all vessel loops allowing flow into the fistula which had an excellent thrill. I achieved hemostasis with a combination of direct pressure and electrocautery. Once hemostasis was achieved I anesthetized the wound with Marcaine. I closed the wounds in 2 layers using 3-0 Vicryl in a running fashion to close the deep dermal layer and 4-0 Monocryl in a running fashion in the subcuticular layer. I dressed the wound with Dermabond. The patient tolerated the procedure well, all sponge needle and instrument counts were correct. The patient was taken to recovery in stable condition.
[2019-04-08] MEDS ORDERED: ZOFRAN ONE (11:56)
[2019-04-08] MEDS ORDERED: NORMODYNE IV ONE (11:58)
[2019-04-08] MEDS ORDERED: NORCO 7.5/325 PO PRN (12:40)
[2019-04-08] MEDS ORDERED: NORVASC PO SCH (13:00)
[2019-04-08] MEDS ORDERED: NORMODYNE PO SCH ×2 (13:00→22:00)
[2019-04-08] MEDS ORDERED: APRESOLINE PO SCH (14:00)
--- NOTE | 2019-04-08 16:29 | Post Anesthesia Evaluation ---
- Post Anesthesia Evaluation Patient Participated: Yes Airway Patent: Yes Stable Respiratory Function: Yes Nausea/Vomiting: No Temp > 96.8F: Yes Pain Manageable: Yes Adequeate Hydration: Yes Anesthesia Complications: No Block Receding Appropriately: Not Applicable Patient on Ventilator: No
[2019-04-08 18:51] VITALS: BP 152/92
[2019-04-09] MEDS ORDERED: NORVASC PO SCH (10:00)
== END 2019-04-08 06:05 | disposition home or self-care (01) ==
LOC: OR 06:04
PROVIDERS: ATTEND Surgery Vascular Surgery
DX: T82.49XA Other complication of vascular dialysis catheter, initial encounter (principal); I12.0 Hypertensive chronic kidney disease with stage 5 chronic kidney disease or end stage renal disease; E11.22 Type 2 diabetes mellitus with diabetic chronic kidney disease; N18.6 End stage renal disease; G43.909 Migraine, unspecified, not intractable, without status migrainosus; E66.9 Obesity, unspecified; F31.9 Bipolar disorder, unspecified; F41.9 Anxiety disorder, unspecified; D64.9 Anemia, unspecified; Z88.0 Allergy status to penicillin; Z79.899 Other long term (current) drug therapy; Z88.5 Allergy status to narcotic agent; Z90.49 Acquired absence of other specified parts of digestive tract; Z68.39 Body mass index [BMI] 39.0-39.9, adult; Z72.89 Other problems related to lifestyle; Z98.890 Other specified postprocedural states; Z82.49 Family history of ischemic heart disease and other diseases of the circulatory system; Y83.8 Other surgical procedures as the cause of abnormal reaction of the patient, or of later complication, without mention of misadventure at the time of the procedure; Y92.89 Other specified places as the place of occurrence of the external cause
CPT/HCPCS: 36582; 36821; 77001; 82803; 82962; C1750; C1757; J1644; J2250; J2370; J2405; J2704; J3010; J7030; J7040; J0690; J2440; J2720; J3490

== ENCOUNTER 2019-04-19 08:32 | Inpatient (IN) | payer OTHER ==
[2019-04-19] MEDS ORDERED: HYDROmorphone 1 MG/1 ML INJ IV ONE ×2 (10:13→13:52)
[2019-04-19] MEDS ORDERED: diphenhydrAMINE 50 MG/ML VIAL IV ONE (10:13)
[2019-04-19] MEDS ORDERED: ONDANSETRON 4 MG/2 ML INJ IV ONE ×2 (10:13→13:53)
--- NOTE | 2019-04-19 10:13 | Emergency Department Report ---
ED General Adult HPI - General Chief complaint: Abdominal Pain Stated complaint: ABD/BACK PAIN/VOMITING Time Seen by Provider: 04/19/19 09:39 Source: patient Mode of arrival: Ambulatory Limitations: No Limitations - History of Present Illness Initial comments: This is a 34-year-old man end-stage renal disease on dialysis with a history of hypertension, gastroparesis and chronic back pain. As morning he started throwing up. He complains of abdominal pain which is not unlike previous bouts of gastroparesis. He also states he has chronic lower back pain. Today is his dialysis today but he was unable to go due to the above. He states he took his medicine for hypertension yesterday. He does report seeing some small quantity of bright red blood in his emesis. The patient seems to have very recurrent symptoms, considering his last discharge summary: 33 YO Male with ESRD on HD(T,R,Sa) last dialyzed on thursday, HIV, HTN, DM com plicated by Gastroparesis, Gastritis presents to ED for evaluation. Pt states that he has experienced nausea, 2 episodes of vomiting, and abdominal discomfort today. Pt presented to dialysis for his routine scheduled dialysis and was found to have elevated blood pressure. EMS was notified, and the patient was transported to [facility]. Pt seen and evaluated in ED and found to have ESRD, Gastroparesis, Hypertensive Urgency with blood pressure of 206/124. Pt admitted to medical floor. Nephrology consulted in ED for urgent dialysis. PT denies fever, chills, CP, Palpitations, trauma, BRBPR, productive cough, skin rash, Headache, ingestion of food/water from new or different sources, or recent ill contacts. Prior admission of 03/01/19 reviewed was for similar. All medication listed at time of admission was reconciled. Patient underwent dialysis and Nausea vomiting resolved We discussed with Complaint Clerk and added catapress patch The patient will follow with GI outpatient (1) ESRD (end stage renal disease) (2) Hypertensive urgency, malignant (3) HIV (human immunodeficiency virus infection) (4) Diabetes (5) Gastroparesis (6) Anemia of chronic disease -: Gradual, hour(s) Location: back, abdomen (back and abdominal pain are unrelated) Severity scale (0 -10): 9 Quality: aching Consistency: intermittent Improves with: none Worsens with: none Associated Symptoms: nausea/vomiting Treatments Prior to Arrival: none - Related Data Home Medications Medication Instructions Recorded Confirmed Last Taken amLODIPine [Norvasc] 10 mg PO DAILY 04/15/19 04/15/19 04/14/19 10mg Previous Rx's Medication Instructions Recorded Last Taken Type Labetalol [Labetalol 200mg TAB] 200 mg PO BID #60 tablet 03/02/19 04/14/19 Rx 200mg hydrALAZINE [Apresoline TAB] 100 mg PO TID #30 tab 03/02/19 04/14/19 Rx 100mg Metoclopramide [Reglan TAB] 10 mg PO TID #30 tab 03/08/19 04/14/19 Rx 10mg Ondansetron [Zofran ODT TAB] 4 mg PO Q8HR PRN #20 tab.rapdis 03/14/19 04/07/19 Rx Losartan [Cozaar] 50 mg PO QDAY #30 tablet 03/17/19 04/14/19 Rx 50mg cloNIDine-TTS PATCH [Catapres-Tts 0.2 mg TD We@1000 #10 patch 03/17/19 04/07/19 Rx 0.2mg Patch] HYDROcodone/APAP 7.5-325 [[place] 1 each PO Q6HR PRN #20 tablet 04/15/19 Unknown Rx 7.5/325] Allergies Allergy/AdvReac Type Severity Reaction Status Date / Time morphine Allergy Severe Verified 04/19/19 08:34 nausea Penicillins Allergy Hives Verified 04/19/19 08:34 tramadol AdvReac Vomiting Verified 04/19/19 08:34 ED Review of Systems ROS: Stated complaint: ABD/BACK PAIN/VOMITING Other details as noted in HPI Constitutional: denies: chills, fever Eyes: denies: eye pain, eye discharge, vision change ENT: denies: ear pain, throat pain Respiratory: denies: cough, shortness of breath, wheezing Cardiovascular: denies: chest pain, palpitations Endocrine: no symptoms reported Gastrointestinal: abdominal pain, nausea, vomiting. denies: diarrhea Genitourinary: denies: urgency, dysuria Musculoskeletal: denies: back pain, joint swelling, arthralgia Skin: denies: rash, lesions Neurological: denies: headache, weakness, paresthesias Psychiatric: denies: anxiety, depression Hematological/Lymphatic: denies: easy bleeding, easy bruising ED Past Medical Hx - Past Medical History Hx Hypertension: Yes Hx Heart Attack/AMI: No Hx Diabetes: Yes Hx Liver Disease: No Hx Renal Disease: Yes Hx Headaches / Migraines: Yes (Migraines) Hx Seizures: No Hx HIV: Yes Additional medical history: HIV. gastroparesis - Surgical History Hx Cholecystectomy: Yes Additional Surgical History: PORT IN CHEST - Social History Smoking Status: Never Smoker Substance Use Type: None - Medications Home Medications: Home Medications Medication Instructions Recorded Confirmed Last Taken Type Labetalol [Labetalol 200mg TAB] 200 mg PO BID #60 tablet 03/02/19 04/15/19 04/14/19 Rx 200mg hydrALAZINE [Apresoline TAB] 100 mg PO TID #30 tab 03/02/19 04/15/19 04/14/19 Rx 100mg Metoclopramide [Reglan TAB] 10 mg PO TID #30 tab 03/08/19 04/15/19 04/14/19 Rx 10mg Ondansetron [Zofran ODT TAB] 4 mg PO Q8HR PRN #20 tab.rapdis 03/14/19 04/15/19 04/07/19 Rx Losartan [Cozaar] 50 mg PO QDAY #30 tablet 03/17/19 04/15/19 04/14/19 Rx 50mg cloNIDine-TTS PATCH [Catapres-Tts 0.2 mg TD We@1000 #10 patch 03/17/19 04/15/19 04/07/19 Rx 0.2mg Patch] HYDROcodone/APAP 7.5-325 [[place] 1 each PO Q6HR PRN #20 tablet 04/15/19 Unknown Rx 7.5/325] amLODIPine [Norvasc] 10 mg PO DAILY 04/15/19 04/15/19 04/14/19 History 10mg ED Physical Exam - General Limitations: No Limitations General appearance: alert, in no apparent distress - Head Head exam: Present: atraumatic, normocephalic - Eye Eye exam: Present: normal appearance. Absent: scleral icterus - ENT ENT exam: Present: mucous membranes moist - Neck Neck exam: Present: normal inspection. Absent: tenderness, meningismus - Respiratory Respiratory exam: Present: normal lung sounds bilaterally. Absent: respiratory distress - Cardiovascular Cardiovascular Exam: Present: regular rate, normal rhythm. Absent: systolic murmur, diastolic murmur, rubs, gallop - GI/Abdominal GI/Abdominal exam: Present: soft, normal bowel sounds. Absent: distended, tenderness, guarding, rebound, rigid - Rectal Rectal exam: Present: deferred - Extremities Exam Extremities exam: Present: normal inspection - Back Exam Back exam: Present: normal inspection. Absent: CVA tenderness (R), CVA tenderness (L) - Neurological Exam Neurological exam: Present: alert, oriented X3, CN II-XII intact. Absent: motor sensory deficit - Psychiatric Psychiatric exam: Present: normal affect, normal mood - Skin Skin exam: Present: warm, dry, intact, normal color. Absent: rash ED Course Vital Signs 04/19/19 04/19/19 04/19/19 08:35 09:21 09:56 Temperature 98.5 F 98.1 F Pulse Rate 106 H 102 H 100 H Respiratory 16 20 Rate Blood Pressure 237/107 225/131 Blood Pressure 223/138 [Right] O2 Sat by Pulse 95 97 Oximetry 04/19/19 11:37 Temperature Pulse Rate 88 Respiratory 20 Rate Blood Pressure Blood Pressure 201/116 [Right] O2 Sat by Pulse 99 Oximetry ED Medical Decision Making - Lab Data Result diagrams: 04/19/19 10:05 04/19/19 10:05 Laboratory Results - last 24 hr 04/19/19 04/19/19 04/19/19 09:44 09:44 10:05 WBC 7.7 RBC 4.53 Hgb 12.2 Hct 36.8 MCV 81 L MCH 27 L MCHC 33 RDW 14.7 Plt Count 257 Lymph % (Auto) 17.7 [place] % (Auto) 3.8 Eos % (Auto) 1.3 Baso % (Auto) 0.7 Lymph # 1.4 [place] # 0.3 Eos # 0.1 Baso # 0.1 Seg Neutrophils % 76.5 H Seg Neutrophils # 5.9 PT 12.8 INR 0.99 APTT 27.8 D-Dimer 502.64 H Sodium Potassium Chloride Carbon Dioxide Anion Gap BUN Creatinine Estimated GFR BUN/Creatinine Ratio Glucose Lactic Acid 1.50 Calcium Magnesium Total Bilirubin Direct Bilirubin Indirect Bilirubin AST ALT Alkaline Phosphatase CK-MB (CK-2) Troponin T NT-Pro-B Natriuret Pep Total Protein Albumin Albumin/Globulin Ratio 04/19/19 04/19/19 10:05 10:05 WBC RBC Hgb Hct MCV MCH MCHC RDW Plt Count Lymph % (Auto) [place] % (Auto) Eos % (Auto) Baso % (Auto) Lymph # [place] # Eos # Baso # Seg Neutrophils % Seg Neutrophils # PT INR APTT D-Dimer Sodium 135 L Potassium 3.7 D Chloride 99.7 Carbon Dioxide 22 Anion Gap 17 BUN 38 H Creatinine 4.2 H Estimated GFR 20 BUN/Creatinine Ratio 9 Glucose 248 H Lactic Acid Calcium 8.3 L Magnesium 2.60 H Total Bilirubin 0.60 Direct Bilirubin < 0.2 Indirect Bilirubin 0.4 AST 33 ALT 40 Alkaline Phosphatase 99 CK-MB (CK-2) 9.2 H Troponin T 0.096 H NT-Pro-B Natriuret Pep 4982 H Total Protein 7.0 Albumin 3.5 L Albumin/Globulin Ratio 1.0 - EKG Data -: EKG Interpreted by Me EKG shows normal: sinus rhythm Rate: normal - EKG Data Interpretation: nonspecific ST-T wave cecile - Radiology Data Radiology results: image reviewed (no acute process seen) Critical Care Time: Yes Critical care time in (mins) excluding proc time.: 60 Critical care attestation.: If time is entered above; I have spent that time in minutes in the direct care of this critically ill patient, excluding procedure time. ED Disposition Clinical Impression: Malignant hypertension, Gastroparesis, CKD (chronic kidney disease) requiring chronic dialysis, Upper GI bleeding HIV (human immunodeficiency virus infection) Qualifiers: HIV symptom status: unspecified Qualified Code(s): B20 - Human immunodeficiency virus [HIV] disease Abdominal pain Qualifiers: Abdominal location: upper abdomen, unspecified Qualified Code(s): R10.10 - Upper abdominal pain, unspecified Type 2 diabetes mellitus Qualifiers: Diabetes mellitus assisted insulin use: unspecified assisted insulin use status Diabetes mellitus complication status: with kidney complications Diabetes mellitus complication detail: with chronic kidney disease Chronic kidney disease stage: on chronic dialysis Qualified Code(s): E11.22 - Type 2 diabetes mellitus with diabetic chronic kidney disease Disposition: OP ADMIT IP TO THIS HOSP Is pt being admited?: Yes Does the pt Need Aspirin: No Condition: Stable Instructions: Diabetes Mellitus Type 2 in Adults (ED), Hypertension (ED) Referrals: PRIMARY CARE, [Primary Care Provider] - 3-5 Days Time of Disposition: 11:51
--- NOTE | 2019-04-19 10:13 | XRay Report ---
CHEST 1 VIEW INDICATION: hypertension. COMPARISON: 02/16/2019 FINDINGS: Support devices: A right Vas-Cath tip is in the right atrium and is unchanged compared to the previou s exam. Heart: Within normal limits. Pulmonary vasculature: Normal. Lungs/Pleura: Normally expanded and clear lungs. No pleural effusion. Additional findings: None. IMPRESSION: 1. No acute findings. Signer Name: Oneal Walton MD Signed: 04/19/2019 10:08 AM Workstation Name: [id number]
[2019-04-19] MEDS ORDERED: PANTOPRAZOLE 40 MG INJ IV ONE (10:16)
[2019-04-19 10:35] LABS: Basophils # (Auto) 0.1 K/mm3 (0.0-0.1); Basophils % (Auto) 0.7 % (0.0-1.8); Eosinophils # (Auto) 0.1 K/mm3 (0.0-0.4); Eosinophils % (Auto) 1.3 % (0.0-4.3); Hematocrit 36.8 % (35.5-45.6); Hemoglobin 12.2 gm/dl (11.8-15.2); Lymphocytes # (Auto) 1.4 K/mm3 (1.2-5.4); Lymphocytes % (Auto) 17.7 % (13.4-35.0); Mean Corpuscular HGB Conc 33 % (32-34); Mean Corpuscular Volume 81 fl (84-94); Monocytes # (Auto) 0.3 K/mm3 (0.0-0.8); Monocytes % (Auto) 3.8 % (0.0-7.3); Platelet Count 257 K/mm3 (140-440); Red Blood Count 4.53 M/mm3 (3.65-5.03); Red Cell Distribution Width 14.7 % (13.2-15.2)
[2019-04-19 10:42] LABS: INR 0.99 (0.87-1.13)
[2019-04-19 10:43] LABS: Partial Thromboplastin Time 27.8 Sec. (24.2-36.6)
[2019-04-19 10:55] LABS: Creatine Kinase MB 9.2 ng/mL (0.0-4.0)
[2019-04-19 11:00] LABS: Alanine Aminotransferase 40 units/L (7-56); Albumin 3.5 g/dL (3.9-5); BUN/Creatinine Ratio 9; Blood Urea Nitrogen 38 mg/dL (9-20); Calcium 8.3 mg/dL (8.4-10.2); Hemolysis Index 20
[2019-04-19 11:03] LABS: Bilirubin,Direct < 0.2 mg/dL (0-0.2)
[2019-04-19] MEDS ORDERED: hydrALAZINE 20 MG/1 ML INJ IV ONE ×2 (11:40→13:52)
[2019-04-19] MEDS ORDERED: SODIUM CHLORIDE 0.9% 100 ML IV PRN (13:41)
--- NOTE | 2019-04-19 14:54 | History and Physical Report ---
History of Present Illness Date of examination: 04/19/19 Date of admission: 04/19/19 12:07 Chief complaint: Nausea, vomiting and not feeling well for the last 18 hours. History of present illness: [id number] male with history of hypertension, end-stage renal disease, HIV, gastroparesis and chronic back pain comes in for vomiting since last night. Vomited 3 or 4 times last night and 3 or 4 times this morning. Could not keep his medicines down. Did not go for hemodialysis for which she is due today. He is on Thursday schedule. Patient feels that his gastroparesis is acting up. He saw a tinge of blood in his vomitus. No adan blood. No lightheadedness. No shortness of breath. No recent travel. In the emergency room his blood pressure was very high to 237/107 Recent discharge summary from 03/17/2019 33 YO Male with ESRD on HD(T,R,Sa) last dialyzed on thursday, HIV, HTN, DM complicated by Gastroparesis, Gastritis presents to ED for evaluation. Pt states that he has experienced nausea, 2 episodes of vomiting, and abdominal discomfort today. Pt presented to dialysis for his routine scheduled dialysis and was found to have elevated blood pressure. EMS was notified, and the patient was transported to [facility]. Pt seen and evaluated in ED and found to have ESRD, Gastroparesis, Hypertensive Urgency with blood pressure of 206/124. Pt admitted to medical floor. Nephrology consulted in ED for urgent dialysis. PT denies fever, chills, CP, Palpitations, trauma, BRBPR, productive cough, skin rash, Headache, ingestion of food/water from new or different sources, or recent ill contacts. Prior admission of 03/01/19 reviewed was for similar. All medication listed at time of admission was reconciled. Patient underwent dialysis and Nausea vomiting resolved We discussed with Transplant Worker and added catapress patch The patient will follow with GI outpatient (1) ESRD (end stage renal disease) (2) Hypertensive urgency, malignant (3) HIV (human immunodeficiency virus infection) (4) Diabetes (5) Gastroparesis (6) Anemia of chronic disease Past Medical History Hypertension: Yes Diabetes: Yes Renal Disease: Yes Headaches / Migraines: Yes (Migraines HIV: Yes Additional medical history: HIV. gastroparesis Surgical History Cholecystectomy: Yes Additional Surgical History: PORT IN CHEST Social History Smoking Status: Never Smoker Substance Use Type: None Family History Htn Medications Home Medications: Home Medications Medication Instructions Recorded Confirmed Last Taken Type Labetalol [Labetalol 200mg TAB] 200 mg PO BID #60 tablet 03/02/19 04/15/19 04/14/19 Rx 200mg hydrALAZINE [Apresoline TAB] 100 mg PO TID #30 tab 03/02/19 04/15/19 04/14/19 Rx 100mg Metoclopramide [Reglan TAB] 10 mg PO TID #30 tab 03/08/19 04/15/19 04/14/19 Rx 10mg Ondansetron [Zofran ODT TAB] 4 mg PO Q8HR PRN #20 tab.rapdis 03/14/19 04/15/19 04/07/19 Rx Losartan [Cozaar] 50 mg PO QDAY #30 tablet 03/17/19 04/15/19 04/14/19 Rx 50mg cloNIDine-TTS PATCH [Catapres-Tts 0.2 mg TD We@1000 #10 patch 03/17/19 04/15/19 04/07/19 Rx 0.2mg Patch] HYDROcodone/APAP 7.5-325 [[place] 1 each PO Q6HR PRN #20 tablet 04/15/19 Unknown Rx 7.5/325] amLODIPine [Norvasc] 10 mg PO DAILY 04/15/19 04/15/19 04/14/19 History 10mg Review of Systems ROS: Stated complaint: ABD/BACK PAIN/VOMITING Other details as noted in HPI Constitutional: denies: chills, fever Eyes: denies: eye pain, eye discharge, vision change ENT: denies: ear pain, throat pain Respiratory: denies: cough, shortness of breath, wheezing Cardiovascular: denies: chest pain, palpitations Endocrine: no symptoms reported Gastrointestinal: abdominal pain, nausea, vomiting. denies: diarrhea Genitourinary: denies: urgency, dysuria Musculoskeletal: denies: back pain, joint swelling, arthralgia Skin: denies: rash, lesions Neurological: denies: headache, weakness, paresthesias Psychiatric: denies: anxiety, depression Hematological/Lymphatic: denies: easy bleeding, easy bruising Medications and Allergies Allergies Allergy/AdvReac Type Severity Reaction Status Date / Time morphine Allergy Severe Verified 04/19/19 13:54 nausea Penicillins Allergy Hives Verified 04/19/19 13:54 tramadol AdvReac Vomiting Verified 04/19/19 13:54 Home Medications Medication Instructions Recorded Confirmed Last Taken Type Labetalol [Labetalol 200mg TAB] 200 mg PO BID #60 tablet 03/02/19 04/19/19 04/18/19 Rx hydrALAZINE [Apresoline TAB] 100 mg PO TID #30 tab 03/02/19 04/19/19 04/18/19 Rx Metoclopramide [Reglan TAB] 10 mg PO TID #30 tab 03/08/19 04/19/19 04/18/19 Rx Ondansetron [Zofran ODT TAB] 4 mg PO Q8HR PRN #20 tab.rapdis 03/14/19 04/19/19 04/18/19 Rx Losartan [Cozaar] 50 mg PO QDAY #30 tablet 03/17/19 04/19/19 04/18/19 Rx cloNIDine-TTS PATCH [Catapres-Tts 0.2 mg TD We@1000 #10 patch 03/17/19 04/19/19 04/18/19 Rx 0.2mg Patch] HYDROcodone/APAP 7.5-325 [[place] 1 each PO Q6HR PRN #20 tablet 04/15/19 04/19/19 04/18/19 Rx 7.5/325] amLODIPine [Norvasc] 10 mg PO DAILY 04/15/19 04/19/19 04/18/19 History Active Meds: Active Medications Sodium Chloride (Nacl 0.9%) 100 mls @ 999 mls/hr IV TORY PRN PRN Reason: Hypotension Exam - Constitutional Vitals: Temp Pulse Resp BP Pulse Ox 98.8 F 100 H 19 218/123 97 04/19/19 13:37 04/19/19 13:37 04/19/19 13:37 04/19/19 13:37 04/19/19 13:37 General appearance: Present: no acute distress, well-nourished - EENT Eyes: Present: PERRL ENT: hearing intact, clear oral mucosa - Neck Neck: Present: supple, normal ROM - Respiratory Respiratory effort: normal Respiratory: bilateral: CTA - Cardiovascular Heart rate: 78 Rhythm: regular Heart Sounds: Present: S1 & S2. Absent: rub, click - Extremities Extremities: no ischemia, pulses intact, pulses symmetrical, No edema Extremity abnormal: other (AV fistula site on the left arm) Peripheral Pulses: within normal limits - Abdominal General gastrointestinal: Present: soft, non-tender, non-distended, normal bowel sounds Male genitourinary: Present: normal - Rectal Rectal Exam: stool brown - Integumentary Integumentary: Present: clear, warm, dry - Musculoskeletal Musculoskeletal: gait normal, strength equal bilaterally - Psychiatric Psychiatric: appropriate mood/affect, intact judgment & insight - Neurologic Neurologic: CNII-XII intact, moves all extremities - Allied Health Allied health notes reviewed: nursing, case management Results - Labs CBC & Chem 7: 04/19/19 10:05 04/19/19 10:05 Labs: Laboratory Last Values WBC 7.7 K/mm3 (4.5-11.0) 04/19/19 10:05 RBC 4.53 M/mm3 (3.65-5.03) 04/19/19 10:05 Hgb 12.2 gm/dl (11.8-15.2) 04/19/19 10:05 Hct 36.8 % (35.5-45.6) 04/19/19 10:05 MCV 81 fl (84-94) L 04/19/19 10:05 MCH 27 pg (28-32) L 04/19/19 10:05 MCHC 33 % (32-34) 04/19/19 10:05 RDW 14.7 % (13.2-15.2) 04/19/19 10:05 Plt Count 257 K/mm3 (140-440) 04/19/19 10:05 Lymph % (Auto) 17.7 % (13.4-35.0) 04/19/19 10:05 [place] % (Auto) 3.8 % (0.0-7.3) 04/19/19 10:05 Eos % (Auto) 1.3 % (0.0-4.3) 04/19/19 10:05 Baso % (Auto) 0.7 % (0.0-1.8) 04/19/19 10:05 Lymph # 1.4 K/mm3 (1.2-5.4) 04/19/19 10:05 [place] # 0.3 K/mm3 (0.0-0.8) 04/19/19 10:05 Eos # 0.1 K/mm3 (0.0-0.4) 04/19/19 10:05 Baso # 0.1 K/mm3 (0.0-0.1) 04/19/19 10:05 Seg Neutrophils % 76.5 % (40.0-70.0) H 04/19/19 10:05 Seg Neutrophils # 5.9 K/mm3 (1.8-7.7) 04/19/19 10:05 PT 12.8 Sec. (12.2-14.9) 04/19/19 09:44 INR 0.99 (0.87-1.13) 04/19/19 09:44 APTT 27.8 Sec. (24.2-36.6) 04/19/19 09:44 502.64 ng/mlDDU (0-234) H 04/19/19 09:44 Sodium 135 mmol/L (137-145) L 04/19/19 10:05 Potassium 3.7 mmol/L (3.6-5.0) D 04/19/19 10:05 Chloride 99.7 mmol/L (98-107) 04/19/19 10:05 Carbon Dioxide 22 mmol/L (22-30) 04/19/19 10:05 17 mmol/L 04/19/19 10:05 BUN 38 mg/dL (9-20) H 04/19/19 10:05 4.2 mg/dL (0.8-1.5) H 04/19/19 10:05 Estimated GFR 20 ml/min 04/19/19 10:05 9 % 04/19/19 10:05 Glucose 248 mg/dL (75-100) H 04/19/19 10:05 Lactic Acid 1.50 mmol/L (0.7-2.0) 04/19/19 09:44 Calcium 8.3 mg/dL (8.4-10.2) L 04/19/19 10:05 Magnesium 2.60 mg/dL (1.7-2.3) H 04/19/19 10:05 0.60 mg/dL (0.1-1.2) 04/19/19 10:05 < 0.2 mg/dL (0-0.2) 04/19/19 10:05 0.4 mg/dL 04/19/19 10:05 AST 33 units/L (5-40) 04/19/19 10:05 ALT 40 units/L (7-56) 04/19/19 10:05 99 units/L (35-129) 04/19/19 10:05 215 units/L (55-170) H 04/19/19 10:05 CK-MB (CK-2) 9.2 ng/mL (0.0-4.0) H 04/19/19 10:05 CK-MB (CK-2) Rel Index 4.2 (0-4) H 04/19/19 10:05 0.096 ng/mL (0.00-0.029) H 04/19/19 10:05 NT-Pro-B Natriuret Pep 4982 pg/mL (0-450) H 04/19/19 10:05 7.0 g/dL (6.3-8.2) 04/19/19 10:05 3.5 g/dL (3.9-5) L 04/19/19 10:05 1.0 % 04/19/19 10:05 - Imaging and Cardiology EKG: report reviewed (normal sinus rhythm heart rate of 85/m ) Assessment and Plan Advance Directives: Yes (full code) VTE prophylaxis?: Chemical Plan of care discussed with patient/family: Yes - Patient Problems (1) Hypertensive emergency Current Visit: Yes Status: Acute Plan to address problem: IV Hydralazine 10 mg Q3h Prn IV Hydralazine given in ED Cont home antihypertensives Increased Labetolol 200 mg po q8h (2) CKD (chronic kidney disease) requiring chronic dialysis Current Visit: Yes Status: Acute (3) Gastroparesis Current Visit: Yes Status: Acute Plan to address problem: IV Reglan and IV Zofran as necessary Clear liquids for now (4) HIV (human immunodeficiency virus infection) Current Visit: Yes Status: Chronic Qualifiers: HIV symptom status: unspecified Qualified Code(s): B20 - Human immunodeficiency virus [HIV] disease Plan to address problem: Continue antiretrovirals Home reconciliation medications did not show any antiretrovirals (5) Type 2 diabetes mellitus Current Visit: Yes Status: Chronic Qualifiers: Diabetes mellitus halfway insulin use: unspecified halfway insulin use status Diabetes mellitus complication status: with kidney complications Diabetes mellitus complication detail: with chronic kidney disease Chronic kidney disease stage: on chronic dialysis Qualified Code(s): E11.22 - Type 2 diabetes mellitus with diabetic chronic kidney disease; N18.6 - End stage renal disease; Z99.2 - Dependence on renal dialysis Plan to address problem: Check hemoglobin A1c Coverage for now (6) Upper GI bleeding Current Visit: Yes Status: Acute Plan to address problem: Very minimal with vomiting Consistent with acute gastroenteritis No active bleeding IV famotidine for now GI consult if necessary Monitor H&H (7) Hypocalcemia Current Visit: Yes Status: Chronic Plan to address problem: Caltrate D started (8) DVT prophylaxis Current Visit: No Status: Acute Plan to address problem: On heparin 5000 every 12
[2019-04-19] MEDS ORDERED: HYDROcodone/ACETAMINOPHEN 7.5-325MG TAB PO PRN (14:57)
[2019-04-19] MEDS ORDERED: ONDANSETRON 4 MG ODT TAB PO PRN (14:57)
[2019-04-19] MEDS ORDERED: ACETAMINOPHEN 325 MG TAB PO PRN (14:58)
[2019-04-19] MEDS ORDERED: amLODIPine 5 MG TAB PO SCH (15:00)
[2019-04-19 17:14] LABS: Hepatitis B Surface Antigen Non-Reactive (Negative); Hepatitis C Virus Antibody Non-Reactive (NonReactive)
[2019-04-19] MEDS ORDERED: hydrALAZINE 20 MG/1 ML INJ IV PRN (19:08)
[2019-04-19] MEDS ORDERED: SODIUM CHLORIDE*PRIMING MACHINE ONLY FOR DIALYSIS MC ONE (19:50)
[2019-04-19] MEDS: HEPARIN 5,000 UNIT/1 ML VIAL SUB-Q SCH (22:11)
[2019-04-19] MEDS: METOCLOPRAMIDE 10 MG TAB PO SCH (22:12)
[2019-04-19] MEDS: hydrALAZINE 100 MG TAB PO SCH (22:12)
[2019-04-19] MEDS: FAMOTIDINE 20 MG/2 ML INJ IV SCH (22:12)
[2019-04-19] MEDS: INSULIN LISPRO 100 UNIT/ML SUB-Q SCH (22:13)
[2019-04-19] MEDS: HYDROmorphone 1 MG/1 ML INJ IV PRN (22:15)
[2019-04-20] MEDS: ONDANSETRON 4 MG/2 ML INJ IV PRN ×3 (05:36→17:25)
[2019-04-20] MEDS: HYDROmorphone 1 MG/1 ML INJ IV PRN ×4 (05:36→21:37)
[2019-04-20 06:14] LABS: Basophils % (Auto) 0.6 % (0.0-1.8); Eosinophils # (Auto) 0.1 K/mm3 (0.0-0.4); Eosinophils % (Auto) 1.2 % (0.0-4.3); Hematocrit 35.6 % (35.5-45.6); Hemoglobin 11.4 gm/dl (11.8-15.2); Lymphocytes # (Auto) 1.5 K/mm3 (1.2-5.4); Lymphocytes % (Auto) 18.8 % (13.4-35.0); Mean Corpuscular HGB Conc 32 % (32-34); Mean Corpuscular Volume 82 fl (84-94); Monocytes # (Auto) 0.6 K/mm3 (0.0-0.8); Monocytes % (Auto) 7.5 % (0.0-7.3); Platelet Count 267 K/mm3 (140-440); Red Blood Count 4.33 M/mm3 (3.65-5.03); Red Cell Distribution Width 15.5 % (13.2-15.2)
[2019-04-20 06:49] LABS: Albumin 3.2 g/dL (3.9-5); Calcium 8.5 mg/dL (8.4-10.2)
[2019-04-20] MEDS: FAMOTIDINE 20 MG/2 ML INJ IV SCH ×3 (07:36→21:35)
[2019-04-20] MEDS: LOSARTAN 50 MG TAB PO SCH ×2 (07:36→10:40)
[2019-04-20] MEDS: INSULIN LISPRO 100 UNIT/ML SUB-Q SCH ×4 (07:48→21:37)
[2019-04-20] MEDS ORDERED: cloNIDine TTS 0.2 MG/24 HR PATCH TD SCH (10:00)
[2019-04-20] MEDS: HEPARIN 5,000 UNIT/1 ML VIAL SUB-Q SCH ×2 (10:40→21:35)
--- NOTE | 2019-04-20 10:42 | Consultation ---
History of Present Illness - Reason for Consult chronic renal failure, end stage renal disease - History of Present Illness 34 y/o male, with H/O ESRD in the setting of HIV and HTN, well known to our clinic, presented to the ED secondary to episodes of vomiting and nausea that had progressively worsened over the last week. He is on TTS HD schedule, and was dialyzed yesterday as inpatient, tolerating the session well. He had his RIJ replaced by Dr. Wade, and has been using it without issues. He had a LUE AVF placed ~ 2weeks ago by Dr. Wade as well. Nephrology consulted for HD needs. Past History Past Medical History: ESRD, HIV/AIDS, hypertension, hyperlipidemia Past Surgical History: Other (AVF creation, permcath placement ) Social history: no significant social history Family history: hypertension Medications and Allergies Allergies Allergy/AdvReac Type Severity Reaction Status Date / Time morphine Allergy Severe Verified 04/19/19 13:54 nausea Penicillins Allergy Hives Verified 04/19/19 13:54 tramadol AdvReac Vomiting Verified 04/19/19 13:54 Home Medications Medication Instructions Recorded Confirmed Last Taken Type Labetalol [Labetalol 200mg TAB] 200 mg PO BID #60 tablet 03/02/19 04/19/19 04/18/19 Rx hydrALAZINE [Apresoline TAB] 100 mg PO TID #30 tab 03/02/19 04/19/19 04/18/19 Rx Metoclopramide [Reglan TAB] 10 mg PO TID #30 tab 03/08/19 04/19/19 04/18/19 Rx Ondansetron [Zofran ODT TAB] 4 mg PO Q8HR PRN #20 tab.rapdis 03/14/19 04/19/19 04/18/19 Rx Losartan [Cozaar] 50 mg PO QDAY #30 tablet 03/17/19 04/19/19 04/18/19 Rx cloNIDine-TTS PATCH [Catapres-Tts 0.2 mg TD We@1000 #10 patch 03/17/19 04/19/19 04/18/19 Rx 0.2mg Patch] HYDROcodone/APAP 7.5-325 [[place] 1 each PO Q6HR PRN #20 tablet 04/15/19 04/19/19 04/18/19 Rx 7.5/325] amLODIPine [Norvasc] 10 mg PO DAILY 04/15/19 04/19/19 04/18/19 History Active Meds: Active Medications Acetaminophen (Tylenol) 650 mg PO Q4H PRN PRN Reason: Pain MILD(1-3)/Fever >100.5/CHOUDHARY Acetaminophen/Hydrocodone Bitart ([place] 7.5/325) 1 each PO Q6HR PRN PRN Reason: Pain Amlodipine Besylate (Norvasc) 10 mg PO DAILY [facility] Clonidine HCl (Catapres-Tts Patch) 0.2 mg TD We@1000 [facility] Famotidine (Pepcid) 10 mg IV BID [facility] Last Admin: 04/20/19 07:36 Dose: Not Given Documented by: Heparin Sodium (Porcine) (Heparin) 5,000 unit SUB-Q Q12HR [facility] Last Admin: 04/19/19 22:11 Dose: 5,000 unit Documented by: Hydralazine HCl (Apresoline) 100 mg PO TID [facility] Last Admin: 04/19/19 22:12 Dose: 100 mg Documented by: Hydralazine HCl (Apresoline) 10 mg IV Q3H PRN PRN Reason: Blood Pressure Hydromorphone HCl (Dilaudid) 0.5 mg IV Q3H PRN PRN Reason: Pain , Severe (7-10) Last Admin: 04/20/19 05:36 Dose: 0.5 mg Documented by: Sodium Chloride (Nacl 0.9%) 100 mls @ 999 mls/hr IV TORY PRN PRN Reason: Hypotension Insulin Human Lispro (Humalog) 0 unit SUB-Q ACHS [facility]; Protocol Last Admin: 04/20/19 07:48 Dose: 3 unit Documented by: Labetalol HCl (Normodyne) 200 mg PO Q8H [facility] Last Admin: 04/20/19 07:36 Dose: Not Given Documented by: Losartan Potassium (Cozaar) 50 mg PO QDAY [facility] Last Admin: 04/20/19 07:36 Dose: Not Given Documented by: Metoclopramide HCl (Reglan) 10 mg PO TID [facility] Last Admin: 04/19/19 22:12 Dose: 10 mg Documented by: Ondansetron HCl (Zofran Odt) 4 mg PO Q3H PRN PRN Reason: Nausea And Vomiting Ondansetron HCl (Zofran) 4 mg IV Q3H PRN PRN Reason: Nausea And Vomiting Last Admin: 04/20/19 05:36 Dose: 4 mg Documented by: Sodium Chloride (Sodium Chloride Flush Syringe 10 Ml) 10 ml IV BID SHIRA Last Admin: 04/19/19 22:16 Dose: 10 ml Documented by: Sodium Chloride (Sodium Chloride Flush Syringe 10 Ml) 10 ml IV PRN PRN PRN Reason: LINE FLUSH Review of Systems All systems: negative Constitutional: fatigue, weakness, poor appetite Gastrointestinal: abdominal pain, nausea, vomiting Exam - Vital Signs Vital signs: Vital Signs Temp Pulse Resp BP Pulse Ox 98.5 F 106 H 16 237/107 95 04/19/19 08:35 04/19/19 08:35 04/19/19 08:35 04/19/19 08:35 04/19/19 08:35 - General Appearance General appearance: well-developed, well-nourished, appears stated age EENT: ATNC, PERRL Neck: Present: neck supple, trachea midline Respiratory: Clear to Ascultation, Normal Exam Heart: regular, S1S2 Gastrointestinal: Present: normal, normoactive bowel sounds Integumentary: no rash Neurologic: no focal deficit, no asterixis, alert and oriented x3 Psychiatric: mood/affect appropriate, cooperative Results - Lab Results 04/20/19 05:34 04/20/19 05:34 Most recent lab results Calcium 8.5 mg/dL (8.4-10.2) 04/20/19 05:34 Magnesium 2.60 mg/dL (1.7-2.3) H 04/19/19 10:05 Assessment and Plan - Patient Problems (1) ESRD (end stage renal disease) Current Visit: No Status: Chronic Plan to address problem: Continue on inpatient TTS schedule for HD (2) Hypertensive chronic kidney disease with stage 5 chronic kidney disease or end stage renal disease Current Visit: No Status: Chronic Plan to address problem: Will monitor BP under current regimen. Improvement noted post HD session. (3) Abdominal pain Current Visit: Yes Status: Chronic Qualifiers: Abdominal location: upper abdomen, unspecified Qualified Code(s): R10.10 - Upper abdominal pain, unspecified Plan to address problem: In the setting of possible worsening gastroparesis. Follow up further recommendations per primary team (4) HIV (human immunodeficiency virus infection) Current Visit: Yes Status: Chronic Qualifiers: HIV symptom status: unspecified Qualified Code(s): B20 - Human immunodeficiency virus [HIV] disease Plan to address problem: Continue on current HAART therapy .
[2019-04-20] MEDS: METOCLOPRAMIDE 10 MG TAB PO SCH ×3 (10:44→21:36)
[2019-04-20] MEDS: amLODIPine 10 MG TAB PO SCH (10:44)
[2019-04-20] MEDS: hydrALAZINE 100 MG TAB PO SCH ×3 (10:44→21:35)
--- NOTE | 2019-04-20 16:18 | Progress Note ---
Assessment and Plan Assessment and plan: Patient is a 34 yo "Black man" with a history of hypertension, ERSD on hemodialysis TTS, HIV, gastroparesis and chronic back pain who presented with nausea, vomiting, diarrhea and malaise for the last 18 hours prior to arrival. Patient feels that his gastroparesis is acting up. He saw a tinge of blood in his vomitus. No adan blood. In the emergency room his blood pressure was very high to 237/107 -N/V most likely AGE vs Gastroparesis flare vs other: treat with IV Reglan -Malignant Hypertensive with Urgency: treated with IV hydralazine -ESRD: needing Hemodialysis, Nephrology is following -Gastroparesis flare: treat with IV reglan -HIV (human immunodeficiency virus infection): Continue antiretrovirals, I have asked patient to supply med list as Home reconciliation medications did not show any antiretrovirals -Type 2 diabetes mellitus: ada, ssi, accuchecks -Upper GI bleeding: IV ppi and monitor cbc closely -Hypocalcemia: Caltrate D started -DVT prophylaxis: scd only due ot tinge of blood in vomitus Disposition: continue inpatient care, anticipate discharge after hemodialysis tomorrow. History Interval history: Patient was seen and examined. Follow-up on current diagnosis AGE, still nauseous but no vomiting. No overnight events reported to me. Patient denies any chest pain, shortness breath, severe headaches. Imaging, nursing note, chart, labs and old chart reviewed. Discussed with patient. Hospitalist Physical - Physical exam Narrative exam: Gen: WDWN, NAD, Awake, Alert, Orientated HEENT: NCAT, EOMI, PERRL, OP Clear Neck: supple, no adenopathy, no thyromegaly, no JVD CVS/Heart: RRR, normal S1S2, pulses present bilaterally Chest/Lungs: CTA B, Symmetrical chest expansion, good air entry bilaterally GI/Abdomen: soft, nondistended, diffuse tender, good bowel sounds, no guarding or rebound /Bladder: no suprapubic tenderness, no CVA or paraspinal tenderness Extermity/Skin: no c/c/e, no obvious rash MSK: FROM x 4 Neuro: CN 2-12 grossly intact, no new focal deficits Psych: calm - Constitutional Vitals: Temp Pulse Resp BP Pulse Ox 97.5 F L 94 H 18 166/86 98 04/20/19 07:33 09/25/19 11:10 04/20/19 07:33 04/20/19 11:09 04/20/19 11:10 General appearance: Present: no acute distress, well-nourished Results - Labs CBC & Chem 7: 04/20/19 05:34 04/20/19 05:34 Labs: Laboratory Last Values WBC 7.8 K/mm3 (4.5-11.0) 04/20/19 05:34 RBC 4.33 M/mm3 (3.65-5.03) 04/20/19 05:34 Hgb 11.4 gm/dl (11.8-15.2) L 04/20/19 05:34 Hct 35.6 % (35.5-45.6) 04/20/19 05:34 MCV 82 fl (84-94) L 04/20/19 05:34 MCH 26 pg (28-32) L 04/20/19 05:34 MCHC 32 % (32-34) 04/20/19 05:34 RDW 15.5 % (13.2-15.2) H 04/20/19 05:34 Plt Count 267 K/mm3 (140-440) 04/20/19 05:34 Lymph % (Auto) 18.8 % (13.4-35.0) 04/20/19 05:34 [place] % (Auto) 7.5 % (0.0-7.3) H 04/20/19 05:34 Eos % (Auto) 1.2 % (0.0-4.3) 04/20/19 05:34 Baso % (Auto) 0.6 % (0.0-1.8) 04/20/19 05:34 Lymph # 1.5 K/mm3 (1.2-5.4) 04/20/19 05:34 [place] # 0.6 K/mm3 (0.0-0.8) 04/20/19 05:34 Eos # 0.1 K/mm3 (0.0-0.4) 04/20/19 05:34 Baso # 0.0 K/mm3 (0.0-0.1) 04/20/19 05:34 Seg Neutrophils % 71.9 % (40.0-70.0) H 04/20/19 05:34 Seg Neutrophils # 5.6 K/mm3 (1.8-7.7) 04/20/19 05:34 PT 12.8 Sec. (12.2-14.9) 04/19/19 09:44 INR 0.99 (0.87-1.13) 04/19/19 09:44 APTT 27.8 Sec. (24.2-36.6) 04/19/19 09:44 502.64 ng/mlDDU (0-234) H 04/19/19 09:44 Sodium 140 mmol/L (137-145) 04/20/19 05:34 Potassium 3.4 mmol/L (3.6-5.0) L 04/20/19 05:34 Chloride 100.6 mmol/L (98-107) 04/20/19 05:34 Carbon Dioxide 28 mmol/L (22-30) 04/20/19 05:34 15 mmol/L 04/20/19 05:34 BUN 28 mg/dL (9-20) H 04/20/19 05:34 4.0 mg/dL (0.8-1.5) H 04/20/19 05:34 Estimated GFR 21 ml/min 04/20/19 05:34 7 % 04/20/19 05:34 Glucose 222 mg/dL (75-100) H 04/20/19 05:34 POC Glucose 194 (70-105) H 04/20/19 11:13 6.4 % (4-6) H 04/19/19 10:05 Lactic Acid 1.50 mmol/L (0.7-2.0) 04/19/19 09:44 Calcium 8.5 mg/dL (8.4-10.2) 04/20/19 05:34 Magnesium 2.60 mg/dL (1.7-2.3) H 04/19/19 10:05 0.40 mg/dL (0.1-1.2) 04/20/19 05:34 < 0.2 mg/dL (0-0.2) 04/19/19 10:05 0.4 mg/dL 04/19/19 10:05 AST 17 units/L (5-40) 04/20/19 05:34 ALT 26 units/L (7-56) 04/20/19 05:34 95 units/L (35-129) 04/20/19 05:34 215 units/L (55-170) H 04/19/19 10:05 CK-MB (CK-2) 9.2 ng/mL (0.0-4.0) H 04/19/19 10:05 CK-MB (CK-2) Rel Index 4.2 (0-4) H 04/19/19 10:05 0.096 ng/mL (0.00-0.029) H 04/19/19 10:05 NT-Pro-B Natriuret Pep 4982 pg/mL (0-450) H 04/19/19 10:05 7.2 g/dL (6.3-8.2) 04/20/19 05:34 3.2 g/dL (3.9-5) L 04/20/19 05:34 0.8 % 04/20/19 05:34 Hepatitis A IgM Ab Non-reactive (NonReactive) 04/19/19 16:40 Hep Bs Antigen Non-reactive (Negative) 04/19/19 16:40 Hep B Core IgM Ab Non-reactive (NonReactive) 04/19/19 16:40 Non-reactive (NonReactive) 04/19/19 16:40 Active Medications - Current Medications Current Medications: Generic Name Dose Route Start Last Admin Trade Name Freq PRN Reason Stop Dose Admin Acetaminophen 650 mg 04/19/19 14:58 Tylenol PO Q4H PRN Pain MILD(1-3)/Fever >100.5/CHOUDHARY Acetaminophen/Hydrocodone [place] 1 each 04/19/19 14:57 [place] 7.5/325 PO Q6HR PRN Pain Amlodipine Besylate 10 mg 04/20/19 10:00 04/20/19 10:44 Norvasc PO 10 mg DAILY SHIRA Administration Clonidine HCl 0.2 mg 04/20/19 10:00 04/20/19 10:40 Catapres-Tts Patch TD 0.2 mg We@1000 SHIRA Administration Famotidine 10 mg 04/19/19 15:00 04/20/19 10:40 Pepcid IV 10 mg BID SHIRA Administration Heparin Sodium (Porcine) 5,000 unit 04/19/19 22:00 04/20/19 10:40 Heparin SUB-Q 5,000 unit Q12HR SHIRA Administration Hydralazine HCl 100 mg 04/19/19 20:00 04/20/19 14:30 Apresoline PO 100 mg TID SHIRA Administration Hydralazine HCl 10 mg 04/19/19 19:08 Apresoline IV Q3H PRN Blood Pressure Hydromorphone HCl 0.5 mg 04/19/19 14:58 04/20/19 14:31 Dilaudid IV 0.5 mg Q3H PRN Administration Pain , Severe (7-10) Sodium Chloride 100 mls @ 999 mls/hr 04/19/19 13:41 Nacl 0.9% IV TORY PRN Hypotension Insulin Human Lispro 0 unit 04/19/19 22:00 04/20/19 14:31 Humalog SUB-Q 1 unit ACHS SHIRA Administration Protocol Labetalol HCl 200 mg 04/19/19 15:00 04/20/19 14:30 Normodyne PO 200 mg Q8H SHIRA Administration Losartan Potassium 50 mg 04/19/19 15:00 04/20/19 10:40 Cozaar PO 50 mg QDAY SHIRA Administration Metoclopramide HCl 10 mg 04/19/19 20:00 04/20/19 14:30 Reglan PO 10 mg TID SHIRA Administration Ondansetron HCl 4 mg 04/19/19 14:57 Zofran Odt PO Q3H PRN Nausea And Vomiting Ondansetron HCl 4 mg 04/19/19 14:58 04/20/19 10:39 Zofran IV 4 mg Q3H PRN Administration Nausea And Vomiting Sodium Chloride 10 ml 04/19/19 22:00 04/20/19 10:44 Sodium Chloride Flush Syringe 10 Ml IV 10 ml BID SHIRA Administration Sodium Chloride 10 ml 04/19/19 14:58 Sodium Chloride Flush Syringe 10 Ml IV PRN PRN LINE FLUSH
[2019-04-21] MEDS: HYDROmorphone 1 MG/1 ML INJ IV PRN ×4 (06:00→22:05)
[2019-04-21] MEDS: ONDANSETRON 4 MG/2 ML INJ IV PRN (06:00)
[2019-04-21] MEDS: METOCLOPRAMIDE 10 MG TAB PO SCH ×3 (09:27→22:03)
[2019-04-21] MEDS: hydrALAZINE 100 MG TAB PO SCH ×3 (09:27→22:03)
[2019-04-21] MEDS: LOSARTAN 50 MG TAB PO SCH (09:27)
[2019-04-21] MEDS: INSULIN LISPRO 100 UNIT/ML SUB-Q SCH ×4 (09:28→23:12)
[2019-04-21] MEDS: HEPARIN 5,000 UNIT/1 ML VIAL SUB-Q SCH ×2 (09:29→22:04)
[2019-04-21] MEDS: FAMOTIDINE 20 MG/2 ML INJ IV SCH ×2 (09:40→22:04)
[2019-04-21] MEDS: INSULIN GLARGINE 100 UNITS/ML SUB-Q SCH (11:33)
[2019-04-21] MEDS: amLODIPine 10 MG TAB PO SCH (11:34)
[2019-04-21] MEDS ORDERED: SODIUM CHLORIDE*PRIMING MACHINE ONLY FOR DIALYSIS MC ONE (16:41)
--- NOTE | 2019-04-21 16:56 | Progress Note ---
Assessment and Plan - Patient Problems (1) ESRD (end stage renal disease) Current Visit: No Status: Chronic Plan to address problem: Continue on inpatient TTS schedule for HD (2) Hypertensive chronic kidney disease with stage 5 chronic kidney disease or end stage renal disease Current Visit: No Status: Chronic Plan to address problem: Will monitor BP under current regimen. Improvement noted post HD session. (3) Abdominal pain Current Visit: Yes Status: Chronic Qualifiers: Abdominal location: upper abdomen, unspecified Qualified Code(s): R10.10 - Upper abdominal pain, unspecified Plan to address problem: In the setting of possible worsening gastroparesis. Follow up further recommendations per primary team (4) HIV (human immunodeficiency virus infection) Current Visit: Yes Status: Chronic Qualifiers: HIV symptom status: unspecified Qualified Code(s): B20 - Human immunodeficiency virus [HIV] disease Plan to address problem: Continue on current HAART therapy . Subjective Date of service: 04/21/19 Interval history: No acute complaints overnight. Still having issues with nausea this am. Seen at HD Objective - Vital Signs Vital signs: Vital Signs - 12hr 04/21/19 04/21/19 04/21/19 04:46 06:00 08:08 Temperature 98.5 F 98.2 F Pulse Rate 97 H 100 H Respiratory 18 18 18 Rate Blood Pressure 164/83 165/90 O2 Sat by Pulse 96 94 Oximetry 04/21/19 04/21/19 04/21/19 09:27 09:42 10:00 Temperature Pulse Rate 100 H 100 H 94 H Respiratory Rate Blood Pressure 165/90 165/90 O2 Sat by Pulse Oximetry 04/21/19 04/21/19 04/21/19 11:00 11:34 12:17 Temperature 98.3 F Pulse Rate 100 H 92 H Respiratory 18 18 Rate Blood Pressure 165/90 151/89 O2 Sat by Pulse 94 96 Oximetry 04/21/19 04/21/19 04/21/19 12:30 12:40 13:00 Temperature 98.3 F Pulse Rate 93 H 92 H 92 H Respiratory 18 Rate Blood Pressure 163/84 161/87 146/85 O2 Sat by Pulse Oximetry 04/21/19 04/21/19 04/21/19 13:30 14:00 14:15 Temperature Pulse Rate 97 H 89 89 Respiratory Rate Blood Pressure 151/84 135/68 138/72 O2 Sat by Pulse Oximetry 04/21/19 04/21/19 04/21/19 14:30 14:45 15:00 Temperature Pulse Rate 88 91 H 94 H Respiratory Rate Blood Pressure 142/79 136/73 162/92 O2 Sat by Pulse Oximetry 04/21/19 04/21/19 04/21/19 15:15 15:30 15:45 Temperature Pulse Rate 100 H 100 H 100 H Respiratory Rate Blood Pressure 154/89 158/96 163/87 O2 Sat by Pulse Oximetry 04/21/19 16:00 Temperature Pulse Rate 104 H Respiratory Rate Blood Pressure 124/74 O2 Sat by Pulse Oximetry - General Appearance General appearance: well-nourished, appears stated age, obese EENT: ATNC, PERRL Neck: no JVD, no thyromegaly Respiratory: Present: Decreased Breath Sounds Cardiology: regular, S1S2 Gastrointestinal: normal, normoactive bowel sounds Integumentary: no rash, warm and dry Neurologic: no focal deficit, no asterixis Psychiatric: mood/affect appropriate, cooperative - Lab 04/20/19 05:34 04/20/19 05:34 Most recent lab results Calcium 8.5 mg/dL (8.4-10.2) 04/20/19 05:34 Magnesium 2.60 mg/dL (1.7-2.3) H 04/19/19 10:05 - Allied health notes Allied health notes reviewed: nursing Medications & Allergies - Medications Allergies/Adverse Reactions: Allergies morphine Allergy (Verified 04/19/19 13:54) Severe nausea Penicillins Allergy (Verified 04/19/19 13:54) Hives tramadol Adverse Reaction (Verified 04/19/19 13:54) Vomiting Home Medications: Home Medications Medication Instructions Recorded Confirmed Last Taken Type Labetalol [Labetalol 200mg TAB] 200 mg PO BID #60 tablet 03/02/19 04/19/19 04/18/19 Rx hydrALAZINE [Apresoline TAB] 100 mg PO TID #30 tab 03/02/19 04/19/19 04/18/19 Rx Metoclopramide [Reglan TAB] 10 mg PO TID #30 tab 03/08/19 04/19/19 04/18/19 Rx Ondansetron [Zofran ODT TAB] 4 mg PO Q8HR PRN #20 tab.rapdis 03/14/19 04/19/19 04/18/19 Rx Losartan [Cozaar] 50 mg PO QDAY #30 tablet 03/17/19 04/19/19 04/18/19 Rx cloNIDine-TTS PATCH [Catapres-Tts 0.2 mg TD We@1000 #10 patch 03/17/19 04/19/19 04/18/19 Rx 0.2mg Patch] HYDROcodone/APAP 7.5-325 [[place] 1 each PO Q6HR PRN #20 tablet 04/15/19 04/19/19 04/18/19 Rx 7.5/325] amLODIPine [Norvasc] 10 mg PO DAILY 04/15/19 04/19/19 04/18/19 History Active Medications: Generic Name Dose Route Start Last Admin Trade Name Freq PRN Reason Stop Dose Admin Acetaminophen 650 mg 04/19/19 14:58 Tylenol PO Q4H PRN Pain MILD(1-3)/Fever >100.5/CHOUDHARY Acetaminophen/Hydrocodone Bitart 1 each 04/19/19 14:57 [place] 7.5/325 PO Q6HR PRN Pain Amlodipine Besylate 10 mg 04/20/19 10:00 04/21/19 11:34 Norvasc PO 10 mg DAILY SHIRA Administration Clonidine HCl 0.2 mg 04/20/19 10:00 04/20/19 10:40 Catapres-Tts Patch TD 0.2 mg We@1000 SHIRA Administration Famotidine 10 mg 04/19/19 15:00 04/21/19 09:40 Pepcid IV 10 mg BID SHIRA Administration Heparin Sodium (Porcine) 5,000 unit 04/19/19 22:00 04/21/19 09:29 Heparin SUB-Q 5,000 unit Q12HR SHIRA Administration Hydralazine HCl 100 mg 04/19/19 20:00 04/21/19 09:27 Apresoline PO 100 mg TID SHIRA Administration Hydralazine HCl 10 mg 04/19/19 19:08 Apresoline IV Q3H PRN Blood Pressure Hydromorphone HCl 0.5 mg 04/19/19 14:58 04/21/19 11:39 Dilaudid IV 0.5 mg Q3H PRN Administration Pain , Severe (7-10) Sodium Chloride 100 mls @ 999 mls/hr 04/19/19 13:41 Nacl 0.9% IV TORY PRN Hypotension Insulin Glargine 10 units 04/21/19 10:30 04/21/19 11:33 Lantus SUB-Q 10 units QAMDIAB SHIRA Administration Insulin Human Lispro 0 unit 04/19/19 22:00 04/21/19 13:11 Humalog SUB-Q Not Given ACHS [facility] Protocol Labetalol HCl 200 mg 04/19/19 15:00 04/21/19 09:42 Normodyne PO 200 mg Q8H SHIRA Administration Losartan Potassium 50 mg 04/19/19 15:00 04/21/19 09:27 Cozaar PO 50 mg QDAY SHIRA Administration Metoclopramide HCl 10 mg 04/19/19 20:00 04/21/19 09:27 Reglan PO 10 mg TID SHIRA Administration Ondansetron HCl 4 mg 04/19/19 14:57 Zofran Odt PO Q3H PRN Nausea And Vomiting Ondansetron HCl 4 mg 04/19/19 14:58 04/21/19 06:00 Zofran IV 4 mg Q3H PRN Administration Nausea And Vomiting Sodium Chloride 10 ml 04/19/19 22:00 04/21/19 09:40 Sodium Chloride Flush Syringe 10 Ml IV 10 ml BID SHIRA Administration Sodium Chloride 10 ml 04/19/19 14:58 Sodium Chloride Flush Syringe 10 Ml IV PRN PRN LINE FLUSH
[2019-04-21] MEDS ORDERED: INSULIN GLARGINE 100 UNITS/ML SUB-Q ONE (17:16)
[2019-04-21] MEDS ORDERED: DEXTROSE 50% IN WATER (25GM) 50 ML SYRINGE IV PRN (17:17)
--- NOTE | 2019-04-21 17:22 | Progress Note ---
Assessment and Plan Assessment and plan: Patient is a 34 yo "Black man" with a history of hypertension, ERSD on hemodialysis TTS, HIV, gastroparesis and chronic back pain who presented with nausea, vomiting, diarrhea and malaise for the last 18 hours prior to arrival. Patient feels that his gastroparesis is acting up. He saw a tinge of blood in his vomitus. No adan blood. In the emergency room his blood pressure was very high to 237/107 -N/V most likely gastritits/PUD, had EGD and c-scopy on 02/25/19: add iv protonix bid, consult GI -Malignant Hypertensive with Urgency: treated with IV hydralazine -ESRD: needing Hemodialysis, Nephrology is following -Gastroparesis flare: treat with IV reglan -HIV (human immunodeficiency virus infection): Continue antiretrovirals, I have asked patient to supply med list as Home reconciliation medications did not show any antiretrovirals -Type 2 diabetes mellitus: ada, ssi, accuchecks -Upper GI bleeding: IV ppi and monitor cbc closely -Hypocalcemia: Caltrate D started -DVT prophylaxis: scd only due ot tinge of blood in vomitus Disposition: continue inpatient care, still has intermittent vomiting to clear liquids and painful defecation, consult GI. Once tolerating a diet, will discharge. History Interval history: Patient was seen and examined. Follow-up on current diagnosis AGE, still with n/v. No overnight events reported to me. Patient denies any chest pain, shortness breath, severe headaches. Imaging, nursing note, chart, labs and old chart reviewed. Discussed with patient. +painful defecation. Hospitalist Physical - Physical exam Narrative exam: Gen: WDWN, NAD, Awake, Alert, Orientated HEENT: NCAT, EOMI, PERRL, OP Clear Neck: supple, no adenopathy, no thyromegaly, no JVD CVS/Heart: RRR, normal S1S2, pulses present bilaterally Chest/Lungs: CTA B, Symmetrical chest expansion, good air entry bilaterally GI/Abdomen: soft, nondistended, diffuse tender, good bowel sounds, no guarding or rebound /Bladder: no suprapubic tenderness, no CVA or paraspinal tenderness Extermity/Skin: no c/c/e, no obvious rash MSK: FROM x 4 Neuro: CN 2-12 grossly intact, no new focal deficits Psych: calm - Constitutional Vitals: Temp Pulse Resp BP Pulse Ox 98.3 F 108 H 18 153/99 96 04/21/19 12:30 04/21/19 17:05 04/21/19 12:30 04/21/19 17:05 04/21/19 12:17 General appearance: Present: no acute distress, well-nourished Results - Labs CBC & Chem 7: 04/20/19 05:34 04/20/19 05:34 Labs: Laboratory Last Values WBC 7.8 K/mm3 (4.5-11.0) 04/20/19 05:34 RBC 4.33 M/mm3 (3.65-5.03) 04/20/19 05:34 Hgb 11.4 gm/dl (11.8-15.2) L 04/20/19 05:34 Hct 35.6 % (35.5-45.6) 04/20/19 05:34 MCV 82 fl (84-94) L 04/20/19 05:34 MCH 26 pg (28-32) L 04/20/19 05:34 MCHC 32 % (32-34) 04/20/19 05:34 RDW 15.5 % (13.2-15.2) H 04/20/19 05:34 Plt Count 267 K/mm3 (140-440) 04/20/19 05:34 Lymph % (Auto) 18.8 % (13.4-35.0) 04/20/19 05:34 [place] % (Auto) 7.5 % (0.0-7.3) H 04/20/19 05:34 Eos % (Auto) 1.2 % (0.0-4.3) 04/20/19 05:34 Baso % (Auto) 0.6 % (0.0-1.8) 04/20/19 05:34 Lymph # 1.5 K/mm3 (1.2-5.4) 04/20/19 05:34 Titus # 0.6 K/mm3 (0.0-0.8) 04/20/19 05:34 Eos # 0.1 K/mm3 (0.0-0.4) 04/20/19 05:34 Baso # 0.0 K/mm3 (0.0-0.1) 04/20/19 05:34 Seg Neutrophils % 71.9 % (40.0-70.0) H 04/20/19 05:34 Seg Neutrophils # 5.6 K/mm3 (1.8-7.7) 04/20/19 05:34 PT 12.8 Sec. (12.2-14.9) 04/19/19 09:44 INR 0.99 (0.87-1.13) 04/19/19 09:44 APTT 27.8 Sec. (24.2-36.6) 04/19/19 09:44 502.64 ng/mlDDU (0-234) H 04/19/19 09:44 Sodium 140 mmol/L (137-145) 04/20/19 05:34 Potassium 3.4 mmol/L (3.6-5.0) L 04/20/19 05:34 Chloride 100.6 mmol/L (98-107) 04/20/19 05:34 Carbon Dioxide 28 mmol/L (22-30) 04/20/19 05:34 15 mmol/L 04/20/19 05:34 BUN 28 mg/dL (9-20) H 04/20/19 05:34 4.0 mg/dL (0.8-1.5) H 04/20/19 05:34 Estimated GFR 21 ml/min 04/20/19 05:34 7 % 04/20/19 05:34 Glucose 222 mg/dL (75-100) H 04/20/19 05:34 POC Glucose 293 (70-105) H 04/21/19 07:44 6.4 % (4-6) H 04/19/19 10:05 Lactic Acid 1.50 mmol/L (0.7-2.0) 04/19/19 09:44 Calcium 8.5 mg/dL (8.4-10.2) 04/20/19 05:34 Magnesium 2.60 mg/dL (1.7-2.3) H 04/19/19 10:05 0.40 mg/dL (0.1-1.2) 04/20/19 05:34 < 0.2 mg/dL (0-0.2) 04/19/19 10:05 0.4 mg/dL 04/19/19 10:05 AST 17 units/L (5-40) 04/20/19 05:34 ALT 26 units/L (7-56) 04/20/19 05:34 95 units/L (35-129) 04/20/19 05:34 215 units/L (55-170) H 04/19/19 10:05 CK-MB (CK-2) 9.2 ng/mL (0.0-4.0) H 04/19/19 10:05 CK-MB (CK-2) Rel Index 4.2 (0-4) H 04/19/19 10:05 0.096 ng/mL (0.00-0.029) H 04/19/19 10:05 NT-Pro-B Natriuret Pep 4982 pg/mL (0-450) H 04/19/19 10:05 7.2 g/dL (6.3-8.2) 04/20/19 05:34 3.2 g/dL (3.9-5) L 04/20/19 05:34 0.8 % 04/20/19 05:34 Hepatitis A IgM Ab Non-reactive (NonReactive) 04/19/19 16:40 Hep Bs Antigen Non-reactive (Negative) 04/19/19 16:40 Hep B Core IgM Ab Non-reactive (NonReactive) 04/19/19 16:40 Non-reactive (NonReactive) 04/19/19 16:40 Active Medications - Current Medications Current Medications: Generic Name Dose Route Start Last Admin Trade Name Freq PRN Reason Stop Dose Admin Acetaminophen 650 mg 04/19/19 14:58 Tylenol PO Q4H PRN Pain MILD(1-3)/Fever >100.5/CHOUDHARY Acetaminophen/Hydrocodone Bitart 1 each 04/19/19 14:57 [place] 7.5/325 PO Q6HR PRN Pain Amlodipine Besylate 10 mg 04/20/19 10:00 04/21/19 11:34 Norvasc PO 10 mg DAILY SHIRA Administration Clonidine HCl 0.2 mg 04/20/19 10:00 04/20/19 10:40 Catapres-Tts Patch TD 0.2 mg We@1000 SHIRA Administration Dextrose 50 ml 04/21/19 17:17 D50w (25gm) Syringe IV PRN PRN Hypoglycemia Famotidine 10 mg 04/19/19 15:00 04/21/19 09:40 Pepcid IV 10 mg BID SHIRA Administration Heparin Sodium (Porcine) 5,000 unit 04/19/19 22:00 04/21/19 09:29 Heparin SUB-Q 5,000 unit Q12HR SHIRA Administration Hydralazine HCl 100 mg 04/19/19 20:00 04/21/19 17:05 Apresoline PO 100 mg TID SHIRA Administration Hydralazine HCl 10 mg 04/19/19 19:08 Apresoline IV Q3H PRN Blood Pressure Hydromorphone HCl 0.5 mg 04/19/19 14:58 04/21/19 17:06 Dilaudid IV 0.5 mg Q3H PRN Administration Pain , Severe (7-10) Sodium Chloride 100 mls @ 999 mls/hr 04/19/19 13:41 Nacl 0.9% IV TORY PRN Hypotension Insulin Glargine 10 units 04/21/19 10:30 04/21/19 11:33 Lantus SUB-Q 10 units QAMDIAB SHIRA Administration Insulin Human Lispro 0 unit 04/21/19 18:00 Humalog SUB-Q Q6HR [facility] Protocol Labetalol HCl 200 mg 04/19/19 15:00 04/21/19 17:05 Normodyne PO 200 mg Q8H SHIRA Administration Losartan Potassium 50 mg 04/19/19 15:00 04/21/19 09:27 Cozaar PO 50 mg QDAY SHIRA Administration Metoclopramide HCl 10 mg 04/19/19 20:00 04/21/19 17:04 Reglan PO 10 mg TID SHIRA Administration Ondansetron HCl 4 mg 04/19/19 14:58 04/21/19 06:00 Zofran IV 4 mg Q3H PRN Administration Nausea And Vomiting Pantoprazole Sodium 40 mg 04/21/19 22:00 Protonix IV BID SHIRA Sodium Chloride 10 ml 04/19/19 22:00 04/21/19 09:40 Sodium Chloride Flush Syringe 10 Ml IV 10 ml BID SHIRA Administration Sodium Chloride 10 ml 04/19/19 14:58 Sodium Chloride Flush Syringe 10 Ml IV PRN PRN LINE FLUSH
[2019-04-21] MEDS: PANTOPRAZOLE 40 MG INJ IV SCH (22:04)
[2019-04-22] MEDS: ONDANSETRON 4 MG/2 ML INJ IV PRN ×2 (03:25→12:46)
[2019-04-22] MEDS: HYDROmorphone 1 MG/1 ML INJ IV PRN ×5 (03:25→22:16)
[2019-04-22 04:57] LABS: Hematocrit 34.5 % (35.5-45.6); Hemoglobin 11.2 gm/dl (11.8-15.2); Mean Corpuscular HGB Conc 32 % (32-34); Mean Corpuscular Volume 83 fl (84-94); Platelet Count 254 K/mm3 (140-440); Red Blood Count 4.16 M/mm3 (3.65-5.03); Red Cell Distribution Width 15.4 % (13.2-15.2)
[2019-04-22 05:16] LABS: Calcium 8.4 mg/dL (8.4-10.2)
[2019-04-22] MEDS: INSULIN LISPRO 100 UNIT/ML SUB-Q SCH ×3 (06:02→19:04)
[2019-04-22] MEDS: hydrALAZINE 100 MG TAB PO SCH ×3 (07:42→21:36)
[2019-04-22] MEDS: METOCLOPRAMIDE 10 MG TAB PO SCH ×3 (07:42→21:36)
[2019-04-22] MEDS: INSULIN GLARGINE 100 UNITS/ML SUB-Q SCH (07:47)
[2019-04-22] MEDS ORDERED: POTASSIUM CHLORIDE 20 MEQ PACKET PO NR (08:01)
--- NOTE | 2019-04-22 08:38 | Gastroenterology Consultation ---
History of Present Illness - Reason for Consult Consult date: 04/22/19 N/V Requesting physician: CHRISTY LEVINE - History of Present Illness Patient is a 34 y/o male with PMH of HTN, PUD? (01/12 in [place] per pt), DM (uncontrolled), gastroparesis, HIV, anemia of chronic disease, and ESRD (began HD 12/2018) who presented to ED with c/o upper abd painassociated N/V with constipation and painful BM He reports the pain is the same as usual, upper abd, radiating to the entire upper abdomen, associated with N/V, duration years, worse with nothing and better with nothing He is not following a gastroparesis diet He is not sure how much fluids he drinks -- I asked what his fluid restriction was and he said "32" Patient is previously known to our service and underwent an EGD/colonoscopy by Dr. Mccullough on 02/25/19 that revealed emetogenic gastritis, otherwise normal. s/p CCY. home meds udpated and reconciled Past History Past Medical History: ESRD, HIV/AIDS, hypertension, hyperlipidemia Past Surgical History: Other (AVF creation, permcath placement ) Social history: no significant social history Family history: hypertension Medications and Allergies Allergies Allergy/AdvReac Type Severity Reaction Status Date / Time morphine Allergy Severe Verified 04/19/19 13:54 nausea Penicillins Allergy Hives Verified 04/19/19 13:54 tramadol AdvReac Vomiting Verified 04/19/19 13:54 Home Medications Medication Instructions Recorded Confirmed Last Taken Type Labetalol [Labetalol 200mg TAB] 200 mg PO BID #60 tablet 03/02/19 04/19/19 04/18/19 Rx hydrALAZINE [Apresoline TAB] 100 mg PO TID #30 tab 03/02/19 04/19/19 04/18/19 Rx Metoclopramide [Reglan TAB] 10 mg PO TID #30 tab 03/08/19 04/19/19 04/18/19 Rx Ondansetron [Zofran ODT TAB] 4 mg PO Q8HR PRN #20 tab.rapdis 03/14/19 04/19/19 04/18/19 Rx Losartan [Cozaar] 50 mg PO QDAY #30 tablet 03/17/19 04/19/19 04/18/19 Rx cloNIDine-TTS PATCH [Catapres-Tts 0.2 mg TD We@1000 #10 patch 03/17/19 04/19/19 04/18/19 Rx 0.2mg Patch] HYDROcodone/APAP 7.5-325 [[place] 1 each PO Q6HR PRN #20 tablet 04/15/19 04/19/19 04/18/19 Rx 7.5/325] amLODIPine [Norvasc] 10 mg PO DAILY 04/15/19 04/19/19 04/18/19 History Active Meds: Active Medications Acetaminophen (Tylenol) 650 mg PO Q4H PRN PRN Reason: Pain MILD(1-3)/Fever >100.5/CHOUDHARY Acetaminophen/Hydrocodone Bitart ([place] 7.5/325) 1 each PO Q6HR PRN PRN Reason: Pain Amlodipine Besylate (Norvasc) 10 mg PO DAILY [facility] Last Admin: 04/21/19 11:34 Dose: 10 mg Documented by: Clonidine HCl (Catapres-Tts Patch) 0.2 mg TD We@1000 [facility] Last Admin: 04/20/19 10:40 Dose: 0.2 mg Documented by: Dextrose (D50w (25gm) Syringe) 50 ml IV PRN PRN PRN Reason: Hypoglycemia Heparin Sodium (Porcine) (Heparin) 5,000 unit SUB-Q Q12HR [facility] Last Admin: 04/21/19 22:04 Dose: 5,000 unit Documented by: Hydralazine HCl (Apresoline) 100 mg PO TID [facility] Last Admin: 04/22/19 07:42 Dose: 100 mg Documented by: Hydralazine HCl (Apresoline) 10 mg IV Q3H PRN PRN Reason: Blood Pressure Hydromorphone HCl (Dilaudid) 0.5 mg IV Q3H PRN PRN Reason: Pain , Severe (7-10) Last Admin: 04/22/19 07:47 Dose: 0.5 mg Documented by: Sodium Chloride (Nacl 0.9%) 100 mls @ 999 mls/hr IV TORY PRN PRN Reason: Hypotension Insulin Glargine (Lantus) 10 units SUB-Q QAMDIAB [facility] Last Admin: 04/22/19 07:47 Dose: 10 units Documented by: Insulin Human Lispro (Humalog) 0 unit SUB-Q Q6HR [facility]; Protocol Last Admin: 04/22/19 06:02 Dose: 4 unit Documented by: Labetalol HCl (Normodyne) 200 mg PO Q8H [facility] Last Admin: 04/22/19 07:41 Dose: 200 mg Documented by: Losartan Potassium (Cozaar) 50 mg PO QDAY [facility] Last Admin: 04/21/19 09:27 Dose: 50 mg Documented by: Metoclopramide HCl (Reglan) 10 mg PO TID [facility] Last Admin: 04/22/19 07:42 Dose: 10 mg Documented by: Ondansetron HCl (Zofran) 4 mg IV Q3H PRN PRN Reason: Nausea And Vomiting Last Admin: 04/22/19 03:25 Dose: 4 mg Documented by: Pantoprazole Sodium (Protonix) 40 mg IV BID [facility] Last Admin: 04/21/19 22:04 Dose: 40 mg Documented by: Potassium Chloride (Potassium Chloride) 40 meq PO ONCE NR Stop: 04/22/19 11:00 Sodium Chloride (Sodium Chloride Flush Syringe 10 Ml) 10 ml IV BID [facility] Last Admin: 04/21/19 22:04 Dose: 10 ml Documented by: Sodium Chloride (Sodium Chloride Flush Syringe 10 Ml) 10 ml IV PRN PRN PRN Reason: LINE FLUSH Review of Systems - Review of Systems All systems: negative (as mentioned above in HPI) Exam - Constitutional Vital Signs: Temp Pulse Resp BP Pulse Ox 98.0 F 104 H 18 172/93 96 04/22/19 03:24 04/22/19 07:41 04/22/19 03:24 04/22/19 07:41 04/22/19 03:24 General appearance: no acute distress - EENT Eyes: EOM intact - Neck Neck: supple - Respiratory Respiratory effort: normal - Cardiovascular Rhythm: regular - Gastrointestinal General gastrointestinal: Present: soft, tender - Integumentary Integumentary: Present: dry - Neurologic Neurological: alert and oriented x3 - Psychiatric Psychiatric: appropriate mood/affect - Labs CBC & Chem 7: 04/22/19 03:23 04/22/19 03:23 Lab Results: Laboratory Results - last 24 hr 04/21/19 04/21/19 04/22/19 17:49 22:14 03:23 WBC 7.3 RBC 4.16 Hgb 11.2 L Hct 34.5 L MCV 83 L MCH 27 L MCHC 32 RDW 15.4 H Plt Count 254 Sodium Potassium Chloride Carbon Dioxide Anion Gap BUN Creatinine Estimated GFR BUN/Creatinine Ratio Glucose POC Glucose 201 H 211 H Calcium 04/22/19 04/22/19 03:23 06:07 WBC RBC Hgb Hct MCV MCH MCHC RDW Plt Count Sodium 138 Potassium 3.2 L Chloride 98.2 Carbon Dioxide 23 Anion Gap 20 BUN 17 Creatinine 4.9 H Estimated GFR 17 BUN/Creatinine Ratio 3 Glucose 200 H POC Glucose 213 H Calcium 8.4 Assessment and Plan Regarding abd pain N/V, likely related to his gastroparesis which is not being managed optimally based upon his report of eating one meal a day rather than frequent small meals a day Low fat low fiber diet with small frequent meals. If he tolerates breakfast well, may advance diet as tolerated Regarding constipation, adding daily miralax, may hold for loose stools. No role for EGD or colonoscopy at this juncture. - Patient Problems (1) Constipation Current Visit: Yes Status: Acute (2) Nausea & vomiting Current Visit: Yes Status: Acute (3) Abdominal pain Current Visit: Yes Status: Chronic Qualifiers: Abdominal location: upper abdomen, unspecified Qualified Code(s): R10.10 - Upper abdominal pain, unspecified
--- NOTE | 2019-04-22 09:57 | Progress Note ---
Assessment and Plan - Patient Problems (1) ESRD (end stage renal disease) Current Visit: No Status: Chronic Plan to address problem: Continue on inpatient TTS schedule for HD (2) Hypertensive chronic kidney disease with stage 5 chronic kidney disease or end stage renal disease Current Visit: No Status: Chronic Plan to address problem: Will monitor BP under current regimen. Improvement noted post HD session. (3) Abdominal pain Current Visit: Yes Status: Chronic Qualifiers: Abdominal location: upper abdomen, unspecified Qualified Code(s): R10.10 - Upper abdominal pain, unspecified Plan to address problem: In the setting of possible worsening gastroparesis. Follow up further recommendations per primary team (4) HIV (human immunodeficiency virus infection) Current Visit: Yes Status: Chronic Qualifiers: HIV symptom status: unspecified Qualified Code(s): B20 - Human immunodeficiency virus [HIV] disease Plan to address problem: Continue on current HAART therapy . Subjective Date of service: 04/22/19 Interval history: Issues with recurrent nausea and vomiting overnight. Plan for GI evaluation today. Tolerated HD well without any issues. Objective - Vital Signs Vital signs: Vital Signs - 12hr 04/21/19 04/21/19 04/21/19 22:00 23:00 23:13 Temperature Pulse Rate 93 H 93 H Respiratory 20 Rate Blood Pressure 130/65 O2 Sat by Pulse 98 Oximetry 04/22/19 04/22/19 04/22/19 00:01 03:24 07:41 Temperature 98.0 F 98.0 F Pulse Rate 104 H 106 H 104 H Respiratory 18 18 Rate Blood Pressure 142/62 162/91 172/93 O2 Sat by Pulse 93 96 Oximetry - General Appearance General appearance: well-developed, well-nourished EENT: ATNC, PERRL Neck: no JVD, no thyromegaly Respiratory: Present: Clear to Ascultation, Decreased Breath Sounds Cardiology: regular, S1S2 Gastrointestinal: normal, normoactive bowel sounds Integumentary: no rash, warm and dry Neurologic: no focal deficit, alert and oriented x3 Psychiatric: cooperative - Lab 04/22/19 03:23 04/22/19 03:23 Most recent lab results Calcium 8.4 mg/dL (8.4-10.2) 04/22/19 03:23 Magnesium 2.60 mg/dL (1.7-2.3) H 04/19/19 10:05 - Allied health notes Allied health notes reviewed: nursing Medications & Allergies - Medications Allergies/Adverse Reactions: Allergies morphine Allergy (Verified 04/19/19 13:54) Severe nausea Penicillins Allergy (Verified 04/19/19 13:54) Hives tramadol Adverse Reaction (Verified 04/19/19 13:54) Vomiting Home Medications: Home Medications Medication Instructions Recorded Confirmed Last Taken Type Labetalol [Labetalol 200mg TAB] 200 mg PO BID #60 tablet 03/02/19 04/19/19 04/18/19 Rx hydrALAZINE [Apresoline TAB] 100 mg PO TID #30 tab 03/02/19 04/19/19 04/18/19 Rx Metoclopramide [Reglan TAB] 10 mg PO TID #30 tab 03/08/19 04/19/19 04/18/19 Rx Ondansetron [Zofran ODT TAB] 4 mg PO Q8HR PRN #20 tab.rapdis 03/14/19 04/19/19 04/18/19 Rx Losartan [Cozaar] 50 mg PO QDAY #30 tablet 03/17/19 04/19/19 04/18/19 Rx cloNIDine-TTS PATCH [Catapres-Tts 0.2 mg TD We@1000 #10 patch 03/17/19 04/19/19 04/18/19 Rx 0.2mg Patch] HYDROcodone/APAP 7.5-325 [[place] 1 each PO Q6HR PRN #20 tablet 04/15/19 04/19/19 04/18/19 Rx 7.5/325] amLODIPine [Norvasc] 10 mg PO DAILY 04/15/19 04/19/19 04/18/19 History Active Medications: Generic Name Dose Route Start Last Admin Trade Name Freq PRN Reason Stop Dose Admin Acetaminophen 650 mg 04/19/19 14:58 Tylenol PO Q4H PRN Pain MILD(1-3)/Fever >100.5/CHOUDHARY Acetaminophen/Hydrocodone Bitart 1 each 04/19/19 14:57 [place] 7.5/325 PO Q6HR PRN Pain Amlodipine Besylate 10 mg 04/20/19 10:00 04/21/19 11:34 Norvasc PO 10 mg DAILY SHIRA Administration Clonidine HCl 0.2 mg 04/20/19 10:00 04/20/19 10:40 Catapres-Tts Patch TD 0.2 mg We@1000 SHIRA Administration Dextrose 50 ml 04/21/19 17:17 D50w (25gm) Syringe IV PRN PRN Hypoglycemia Heparin Sodium (Porcine) 5,000 unit 04/19/19 22:00 04/21/19 22:04 Heparin SUB-Q 5,000 unit Q12HR SHIRA Administration Hydralazine HCl 100 mg 04/19/19 20:00 04/22/19 07:42 Apresoline PO 100 mg TID SHIRA Administration Hydralazine HCl 10 mg 04/19/19 19:08 Apresoline IV Q3H PRN Blood Pressure Hydromorphone HCl 0.5 mg 04/19/19 14:58 04/22/19 07:47 Dilaudid IV 0.5 mg Q3H PRN Administration Pain , Severe (7-10) Sodium Chloride 100 mls @ 999 mls/hr 04/19/19 13:41 Nacl 0.9% IV TORY PRN Hypotension Insulin Glargine 10 units 04/21/19 10:30 04/22/19 07:47 Lantus SUB-Q 10 units QAMDIAB SHIRA Administration Insulin Human Lispro 0 unit 04/21/19 18:00 04/22/19 06:02 Humalog SUB-Q 4 unit Q6HR SHIRA Administration Protocol Labetalol HCl 200 mg 04/19/19 15:00 04/22/19 07:41 Normodyne PO 200 mg Q8H SHIRA Administration Losartan Potassium 50 mg 04/19/19 15:00 04/21/19 09:27 Cozaar PO 50 mg QDAY SHIRA Administration Metoclopramide HCl 10 mg 04/19/19 20:00 04/22/19 07:42 Reglan PO 10 mg TID SHIRA Administration Ondansetron HCl 4 mg 04/19/19 14:58 04/22/19 03:25 Zofran IV 4 mg Q3H PRN Administration Nausea And Vomiting Pantoprazole Sodium 40 mg 04/21/19 22:00 04/21/19 22:04 Protonix IV 40 mg BID SHIRA Administration Potassium Chloride 40 meq 04/22/19 08:01 Potassium Chloride PO 04/22/19 11:00 ONCE NR Sodium Chloride 10 ml 04/19/19 22:00 04/21/19 22:04 Sodium Chloride Flush Syringe 10 Ml IV 10 ml BID SHIRA Administration Sodium Chloride 10 ml 04/19/19 14:58 Sodium Chloride Flush Syringe 10 Ml IV PRN PRN LINE FLUSH
[2019-04-22] MEDS: LOSARTAN 50 MG TAB PO SCH (10:02)
[2019-04-22] MEDS: amLODIPine 10 MG TAB PO SCH (10:02)
[2019-04-22] MEDS: HEPARIN 5,000 UNIT/1 ML VIAL SUB-Q SCH ×2 (10:03→21:36)
[2019-04-22] MEDS: PANTOPRAZOLE 40 MG INJ IV SCH ×2 (10:03→21:36)
[2019-04-22] MEDS: POLYETHYLENE GLYCOL 3350 17 GM POWDER PO SCH (12:46)
--- NOTE | 2019-04-22 13:18 | Progress Note ---
Assessment and Plan Assessment and plan: Patient is a 34 yo "Black man" with a history of hypertension, ERSD on hemodialysis TTS, HIV, gastroparesis and chronic back pain who presented with nausea, vomiting, diarrhea and malaise for the last 18 hours prior to arrival. Patient feels that his gastroparesis is acting up. He saw a tinge of blood in his vomitus. No adan blood. In the emergency room his blood pressure was very high to 237/107 -N/V most likely gastritits/PUD, had EGD and c-scopy on 02/25/19: added iv protonix bid, consult GI -Malignant Hypertensive with Urgency: treated with IV hydralazine -ESRD: needing Hemodialysis, Nephrology is following -Gastroparesis flare: treat with IV reglan -HIV (human immunodeficiency virus infection): Continue antiretrovirals, I have asked patient to supply med list as Home reconciliation medications did not show any antiretrovirals -Type 2 diabetes mellitus: ada, ssi, accuchecks -Upper GI bleeding: IV ppi and monitor cbc closely -Hypocalcemia: Caltrate D started -DVT prophylaxis: scd only due to tinge of blood in vomitus Disposition: continue inpatient care, still has intermittent vomiting to clear liquids and painful defecation, consult GI. Once tolerating a diet, will discharge hopefully tomorrow History Interval history: Patient was seen and examined. Follow-up on current diagnosis AGE, still with n/v. No overnight events reported to me. Patient denies any chest pain, shortness breath, severe headaches. Imaging, nursing note, chart, labs and old chart reviewed. Discussed with patient. +painful defecation. Hospitalist Physical - Physical exam Narrative exam: Gen: WDWN, NAD, Awake, Alert, Orientated HEENT: NCAT, EOMI, PERRL, OP Clear Neck: supple, no adenopathy, no thyromegaly, no JVD CVS/Heart: RRR, normal S1S2, pulses present bilaterally Chest/Lungs: CTA B, Symmetrical chest expansion, good air entry bilaterally GI/Abdomen: soft, nondistended, diffuse tender, good bowel sounds, no guarding or rebound /Bladder: no suprapubic tenderness, no CVA or paraspinal tenderness Extermity/Skin: no c/c/e, no obvious rash MSK: FROM x 4 Neuro: CN 2-12 grossly intact, no new focal deficits Psych: calm - Constitutional Vitals: Temp Pulse Resp BP Pulse Ox 98.0 F 104 H 18 172/93 96 04/22/19 03:24 04/22/19 10:02 04/22/19 03:24 04/22/19 10:02 04/22/19 03:24 General appearance: Present: no acute distress, well-nourished Results - Labs CBC & Chem 7: 04/22/19 03:23 04/22/19 03:23 Labs: Laboratory Last Values WBC 7.3 K/mm3 (4.5-11.0) 04/22/19 03:23 RBC 4.16 M/mm3 (3.65-5.03) 04/22/19 03:23 Hgb 11.2 gm/dl (11.8-15.2) L 04/22/19 03:23 Hct 34.5 % (35.5-45.6) L 04/22/19 03:23 MCV 83 fl (84-94) L 04/22/19 03:23 MCH 27 pg (28-32) L 04/22/19 03:23 MCHC 32 % (32-34) 04/22/19 03:23 RDW 15.4 % (13.2-15.2) H 04/22/19 03:23 Plt Count 254 K/mm3 (140-440) 04/22/19 03:23 Lymph % (Auto) 18.8 % (13.4-35.0) 04/20/19 05:34 [place] % (Auto) 7.5 % (0.0-7.3) H 04/20/19 05:34 Eos % (Auto) 1.2 % (0.0-4.3) 04/20/19 05:34 Baso % (Auto) 0.6 % (0.0-1.8) 04/20/19 05:34 Lymph # 1.5 K/mm3 (1.2-5.4) 04/20/19 05:34 [place] # 0.6 K/mm3 (0.0-0.8) 04/20/19 05:34 Eos # 0.1 K/mm3 (0.0-0.4) 04/20/19 05:34 Baso # 0.0 K/mm3 (0.0-0.1) 04/20/19 05:34 Seg Neutrophils % 71.9 % (40.0-70.0) H 04/20/19 05:34 Seg Neutrophils # 5.6 K/mm3 (1.8-7.7) 04/20/19 05:34 PT 12.8 Sec. (12.2-14.9) 04/19/19 09:44 INR 0.99 (0.87-1.13) 04/19/19 09:44 APTT 27.8 Sec. (24.2-36.6) 04/19/19 09:44 502.64 ng/mlDDU (0-234) H 04/19/19 09:44 Sodium 138 mmol/L (137-145) 04/22/19 03:23 Potassium 3.2 mmol/L (3.6-5.0) L 04/22/19 03:23 Chloride 98.2 mmol/L (98-107) 04/22/19 03:23 Carbon Dioxide 23 mmol/L (22-30) 04/22/19 03:23 20 mmol/L 04/22/19 03:23 BUN 17 mg/dL (9-20) 04/22/19 03:23 4.9 mg/dL (0.8-1.5) H 04/22/19 03:23 Estimated GFR 17 ml/min 04/22/19 03:23 3 % 04/22/19 03:23 Glucose 200 mg/dL (75-100) H 04/22/19 03:23 POC Glucose 213 (70-105) H 04/22/19 06:07 6.4 % (4-6) H 04/19/19 10:05 Lactic Acid 1.50 mmol/L (0.7-2.0) 04/19/19 09:44 Calcium 8.4 mg/dL (8.4-10.2) 04/22/19 03:23 Magnesium 2.60 mg/dL (1.7-2.3) H 04/19/19 10:05 0.40 mg/dL (0.1-1.2) 04/20/19 05:34 < 0.2 mg/dL (0-0.2) 04/19/19 10:05 0.4 mg/dL 04/19/19 10:05 AST 17 units/L (5-40) 04/20/19 05:34 ALT 26 units/L (7-56) 04/20/19 05:34 95 units/L (35-129) 04/20/19 05:34 215 units/L (55-170) H 04/19/19 10:05 CK-MB (CK-2) 9.2 ng/mL (0.0-4.0) H 04/19/19 10:05 CK-MB (CK-2) Rel Index 4.2 (0-4) H 04/19/19 10:05 0.096 ng/mL (0.00-0.029) H 04/19/19 10:05 NT-Pro-B Natriuret Pep 4982 pg/mL (0-450) H 04/19/19 10:05 7.2 g/dL (6.3-8.2) 04/20/19 05:34 3.2 g/dL (3.9-5) L 04/20/19 05:34 0.8 % 04/20/19 05:34 Hepatitis A IgM Ab Non-reactive (NonReactive) 04/19/19 16:40 Hep Bs Antigen Non-reactive (Negative) 04/19/19 16:40 Hep B Core IgM Ab Non-reactive (NonReactive) 04/19/19 16:40 Non-reactive (NonReactive) 04/19/19 16:40 Active Medications - Current Medications Current Medications: Generic Name Dose Route Start Last Admin Trade Name Freq PRN Reason Stop Dose Admin Acetaminophen 650 mg 04/19/19 14:58 Tylenol PO Q4H PRN Pain MILD(1-3)/Fever >100.5/CHOUDHARY Acetaminophen/Hydrocodone Bitart 1 each 04/19/19 14:57 [place] 7.5/325 PO Q6HR PRN Pain Amlodipine Besylate 10 mg 04/20/19 10:00 04/22/19 10:02 Norvasc PO 10 mg DAILY SHIRA Administration Clonidine HCl 0.2 mg 04/20/19 10:00 04/20/19 10:40 Catapres-Tts Patch TD 0.2 mg We@1000 SHIRA Administration Dextrose 50 ml 04/21/19 17:17 D50w (25gm) Syringe IV PRN PRN Hypoglycemia Heparin Sodium (Porcine) 5,000 unit 04/19/19 22:00 04/22/19 10:03 Heparin SUB-Q 5,000 unit Q12HR SHIRA Administration Hydralazine HCl 100 mg 04/19/19 20:00 04/22/19 07:42 Apresoline PO 100 mg TID SHIRA Administration Hydralazine HCl 10 mg 04/19/19 19:08 Apresoline IV Q3H PRN Blood Pressure Hydromorphone HCl 0.5 mg 04/19/19 14:58 04/22/19 12:47 Dilaudid IV 0.5 mg Q3H PRN Administration Pain , Severe (7-10) Sodium Chloride 100 mls @ 999 mls/hr 04/19/19 13:41 Nacl 0.9% IV TORY PRN Hypotension Insulin Glargine 10 units 04/21/19 10:30 04/22/19 07:47 Lantus SUB-Q 10 units QAMDIAB SHIRA Administration Insulin Human Lispro 0 unit 04/21/19 18:00 04/22/19 12:46 Humalog SUB-Q 3 unit Q6HR SHIRA Administration Protocol Labetalol HCl 200 mg 04/19/19 15:00 04/22/19 07:41 Normodyne PO 200 mg Q8H SHIRA Administration Losartan Potassium 50 mg 04/19/19 15:00 04/22/19 10:02 Cozaar PO 50 mg QDAY SHIRA Administration Metoclopramide HCl 10 mg 04/19/19 20:00 04/22/19 07:42 Reglan PO 10 mg TID SHIRA Administration Ondansetron HCl 4 mg 04/19/19 14:58 04/22/19 12:46 Zofran IV 4 mg Q3H PRN Administration Nausea And Vomiting Pantoprazole Sodium 40 mg 04/21/19 22:00 04/22/19 10:03 Protonix IV 40 mg BID SHIRA Administration Polyethylene Glycol 17 gm 04/22/19 11:00 04/22/19 12:46 Miralax 3350 PO 17 gm QDAY SHIRA Administration Sodium Chloride 10 ml 04/19/19 22:00 04/22/19 12:47 Sodium Chloride Flush Syringe 10 Ml IV 10 ml BID SHIRA Administration Sodium Chloride 10 ml 04/19/19 14:58 Sodium Chloride Flush Syringe 10 Ml IV PRN PRN LINE FLUSH
[2019-04-23] MEDS: INSULIN LISPRO 100 UNIT/ML SUB-Q SCH ×3 (00:37→12:27)
[2019-04-23] MEDS: ONDANSETRON 4 MG/2 ML INJ IV PRN ×2 (04:19→12:35)
[2019-04-23] MEDS: HYDROmorphone 1 MG/1 ML INJ IV PRN ×2 (04:19→09:29)
[2019-04-23] MEDS: amLODIPine 10 MG TAB PO SCH (09:28)
[2019-04-23] MEDS: HEPARIN 5,000 UNIT/1 ML VIAL SUB-Q SCH (09:29)
[2019-04-23] MEDS: PANTOPRAZOLE 40 MG INJ IV SCH (09:29)
[2019-04-23] MEDS: LOSARTAN 50 MG TAB PO SCH (09:30)
[2019-04-23] MEDS: INSULIN GLARGINE 100 UNITS/ML SUB-Q SCH (09:30)
[2019-04-23] MEDS: METOCLOPRAMIDE 10 MG TAB PO SCH ×2 (09:31→15:01)
[2019-04-23] MEDS: hydrALAZINE 100 MG TAB PO SCH ×2 (09:31→15:00)
[2019-04-23] MEDS: POLYETHYLENE GLYCOL 3350 17 GM POWDER PO SCH (09:35)
--- NOTE | 2019-04-23 10:32 | Progress Note ---
Assessment and Plan - Patient Problems (1) ESRD (end stage renal disease) Current Visit: No Status: Chronic Plan to address problem: Continue on inpatient TTS schedule for HD (2) Hypertensive chronic kidney disease with stage 5 chronic kidney disease or end stage renal disease Current Visit: No Status: Chronic Plan to address problem: Will monitor BP under current regimen. (3) Gastroparesis Current Visit: Yes Status: Acute Plan to address problem: Follow up further recommendations per primary team (4) HIV (human immunodeficiency virus infection) Current Visit: Yes Status: Chronic Qualifiers: HIV symptom status: unspecified Qualified Code(s): B20 - Human immunodeficiency virus [HIV] disease Plan to address problem: Continue on current HAART therapy . Subjective Date of service: 04/23/19 Principal diagnosis: ESRD Interval history: Pt awake, alert, in NAD Objective - Vital Signs Vital signs: Vital Signs - 12hr 04/22/19 04/23/19 04/23/19 23:44 04:08 04:19 Temperature 98.0 F 98.0 F Pulse Rate 91 H 99 H Respiratory 18 18 20 Rate Blood Pressure 137/71 141/77 O2 Sat by Pulse 97 96 Oximetry 04/23/19 04/23/19 04/23/19 07:42 09:28 09:30 Temperature 98.3 F Pulse Rate 99 H 99 H Respiratory 18 Rate Blood Pressure 150/83 150/83 150/83 O2 Sat by Pulse Oximetry - General Appearance General appearance: well-developed, well-nourished, appears stated age EENT: ATNC, PERRL, mucous membranes moist Neck: no JVD Respiratory: Present: Clear to Ascultation Cardiology: regular, S1S2 Gastrointestinal: normoactive bowel sounds Integumentary: no rash, other (no edema ) Neurologic: no focal deficit, alert and oriented x3, strength 5/5, CN 3-12 intact Psychiatric: mood/affect appropriate, cooperative - Lab 04/22/19 03:23 04/22/19 03:23 Most recent lab results Calcium 8.4 mg/dL (8.4-10.2) 04/22/19 03:23 Magnesium 2.60 mg/dL (1.7-2.3) H 04/19/19 10:05 Medications & Allergies - Medications Allergies/Adverse Reactions: Allergies morphine Allergy (Verified 04/19/19 13:54) Severe nausea Penicillins Allergy (Verified 04/19/19 13:54) Hives tramadol Adverse Reaction (Verified 04/19/19 13:54) Vomiting Home Medications: Home Medications Medication Instructions Recorded Confirmed Last Taken Type Labetalol [Labetalol 200mg TAB] 200 mg PO BID #60 tablet 03/02/19 04/19/19 04/18/19 Rx hydrALAZINE [Apresoline TAB] 100 mg PO TID #30 tab 03/02/19 04/19/19 04/18/19 Rx Metoclopramide [Reglan TAB] 10 mg PO TID #30 tab 03/08/19 04/19/19 04/18/19 Rx Ondansetron [Zofran ODT TAB] 4 mg PO Q8HR PRN #20 tab.rapdis 03/14/19 04/19/19 04/18/19 Rx Losartan [Cozaar] 50 mg PO QDAY #30 tablet 03/17/19 04/19/19 04/18/19 Rx cloNIDine-TTS PATCH [Catapres-Tts 0.2 mg TD We@1000 #10 patch 03/17/19 04/19/19 04/18/19 Rx 0.2mg Patch] HYDROcodone/APAP 7.5-325 [[place] 1 each PO Q6HR PRN #20 tablet 04/15/19 04/19/19 04/18/19 Rx 7.5/325] amLODIPine [Norvasc] 10 mg PO DAILY 04/15/19 04/19/19 04/18/19 History Active Medications: Generic Name Dose Route Start Last Admin Trade Name Freq PRN Reason Stop Dose Admin Acetaminophen 650 mg 04/19/19 14:58 Tylenol PO Q4H PRN Pain MILD(1-3)/Fever >100.5/CHOUDHARY Acetaminophen/Hydrocodone Bitart 1 each 04/19/19 14:57 [place] 7.5/325 PO Q6HR PRN Pain Amlodipine Besylate 10 mg 04/20/19 10:00 04/23/19 09:28 Norvasc PO 10 mg DAILY SHIRA Administration Clonidine HCl 0.2 mg 04/20/19 10:00 04/20/19 10:40 Catapres-Tts Patch TD 0.2 mg We@1000 SHIRA Administration Dextrose 50 ml 04/21/19 17:17 D50w (25gm) Syringe IV PRN PRN Hypoglycemia Heparin Sodium (Porcine) 5,000 unit 04/19/19 22:00 04/23/19 09:29 Heparin SUB-Q 5,000 unit Q12HR SHIRA Administration Hydralazine HCl 100 mg 04/19/19 20:00 04/23/19 09:31 Apresoline PO 100 mg TID SHIRA Administration Hydralazine HCl 10 mg 04/19/19 19:08 Apresoline IV Q3H PRN Blood Pressure Hydromorphone HCl 0.5 mg 04/19/19 14:58 04/23/19 09:29 Dilaudid IV 0.5 mg Q3H PRN Administration Pain , Severe (7-10) Sodium Chloride 100 mls @ 999 mls/hr 04/19/19 13:41 Nacl 0.9% IV TORY PRN Hypotension Insulin Glargine 10 units 04/21/19 10:30 04/23/19 09:30 Lantus SUB-Q 10 units QAMDIAB SHIRA Administration Insulin Human Lispro 0 unit 04/21/19 18:00 04/23/19 06:15 Humalog SUB-Q Not Given Q6HR [facility] Protocol Labetalol HCl 200 mg 04/19/19 15:00 04/22/19 22:15 Normodyne PO 200 mg Q8H SHIRA Administration Losartan Potassium 50 mg 04/19/19 15:00 04/23/19 09:30 Cozaar PO 50 mg QDAY SHIRA Administration Metoclopramide HCl 10 mg 04/19/19 20:00 04/23/19 09:31 Reglan PO 10 mg TID SHIRA Administration Ondansetron HCl 4 mg 04/19/19 14:58 04/23/19 04:19 Zofran IV 4 mg Q3H PRN Administration Nausea And Vomiting Pantoprazole Sodium 40 mg 04/21/19 22:00 04/23/19 09:29 Protonix IV 40 mg BID SHIRA Administration Polyethylene Glycol 17 gm 04/22/19 11:00 04/23/19 09:35 Miralax 3350 PO Not Given QDAY SHIRA Sodium Chloride 10 ml 04/19/19 22:00 04/23/19 09:36 Sodium Chloride Flush Syringe 10 Ml IV 10 ml BID SHIRA Administration Sodium Chloride 10 ml 04/19/19 14:58 Sodium Chloride Flush Syringe 10 Ml IV PRN PRN LINE FLUSH
--- NOTE | 2019-04-23 12:08 | Gastroenterology Progress Note ---
Assessment and Plan # Nausea/vomiting - 2/2 gastroparesis. - previous admission with EGD unremarkable. - clinically improving. rec: - advance diet to full liquids and as tolerated thereafter. - if tolerating diet, ok for discharge home per GI standpoint on gastroparesis diet, which was discussed with patient. - follow up outpatient. - call with questions. Subjective Date of service: 04/23/19 Principal diagnosis: ESRD Interval history: patient tolerating clear liquids. Mild nausea but no vomiting. Objective - Constitutional Vitals: Temp Pulse Resp BP Pulse Ox 98.3 F 99 H 18 150/83 96 04/23/19 07:42 04/23/19 09:30 04/23/19 07:42 04/23/19 09:30 04/23/19 04:08 General appearance: no acute distress - EENT Eyes: EOM intact ENT: hearing intact - Neck Neck: supple - Respiratory Respiratory effort: normal Respiratory: bilateral: CTA - Cardiovascular Rhythm: regular Heart Sounds: Present: S1 & S2 - Gastrointestinal General gastrointestinal: Present: soft, non-tender, non-distended, normal bowel sounds - Integumentary Integumentary: Present: clear, warm - Neurologic Neurological: alert and oriented x3 - Labs CBC & Chem 7: 04/22/19 03:23 04/22/19 03:23 Labs: Laboratory Results - last 24 hr 04/22/19 04/22/19 04/22/19 12:35 18:29 23:50 POC Glucose 196 H 136 H 148 H 04/23/19 04/23/19 06:11 07:50 POC Glucose 139 H 201 H
--- NOTE | 2019-04-23 12:59 | Discharge Summary ---
Providers - Providers Date of Admission: 04/19/19 12:07 Date of discharge: 04/23/19 Attending physician: CHRISTY LEVINE 04/19/19 Consult to Case Management [CONS] Routine Services Needed at Discharge: Escort Car Driver Notified:: case preparer and liner 04/19/19 12:08 Consult to Physician [CONS] Urgent Comment: Consulting Provider: TIMOTEO SABA Physician Instructions: Reason For Exam: end-stage renal on dialysis and hypertension 04/21/19 17:13 Consult to Physician [CONS] Routine Comment: Consulting Provider: NADYA CHEN Physician Instructions: Reason For Exam: intractable N/V, painful defecation Primary care physician: DENTAL THERAPIST Hospitalization Condition: Stable Hospital course: Patient is a 34 yo "Black man" with a history of hypertension, ERSD on hemodialysis TTS, HIV, gastroparesis and chronic back pain who presented with nausea, vomiting, diarrhea and malaise for the last 18 hours prior to arrival. Patient feels that his gastroparesis is acting up. He saw a tinge of blood in his vomitus. No adan blood. In the emergency room his blood pressure was very high to 237/107 -N/V most likely Gastroparesis flare -Malignant Hypertensive with Urgency: treated with IV hydralazine -ESRD: needing Hemodialysis, Nephrology is following -Gastroparesis flare: treat with IV reglan -HIV (human immunodeficiency virus infection): Continue antiretrovirals, I have asked patient to supply med list as Home reconciliation medications did not show any antiretrovirals -Type 2 diabetes mellitus: ada, ssi, accuchecks -Upper GI bleeding: IV ppi and monitor cbc closely -Hypocalcemia: Caltrate D started -DVT prophylaxis: scd only due to tinge of blood in vomitus Disposition: tolerating liquid diet will discharge on Gastropareis diet [place] [employer] aware: 04/17/2019 HYDROCODONE-ACETAMIN 7.5-[address] Bassem Wade, 04/08/2019 HYDROCODONE-ACETAMIN 7.5-[address] Bassem Wade pt needs pain meds until Thursday, when he see his PCP Also, patient has not picked up his new HIV medications (he has 3 new medication to start per his ID doctor) Disposition: - TO HOME OR SELFCARE Time spent for discharge: 33 minutes Core Measure Documentation - Palliative Care Palliative Care/ Comfort Measures: Not Applicable - Core Measures Any of the following diagnoses?: none - VTE Discharge Requirements Deep Vein Thrombosis/Pulmonary Embolism Present on Admission: No Has pt received <5 days of overlap therapy or INR<2.0: No Anticoagulant overlap therapy prescribed at discharge: No Contraindication No Overlap Therapy order at DC: Not Indicated Exam - Physical Exam Narrative exam: Gen: WDWN, NAD, Awake, Alert, Orientated HEENT: NCAT, EOMI, PERRL, OP Clear Neck: supple, no adenopathy, no thyromegaly, no JVD CVS/Heart: RRR, normal S1S2, pulses present bilaterally Chest/Lungs: CTA B, Symmetrical chest expansion, good air entry bilaterally GI/Abdomen: soft, nondistended, diffuse tender, good bowel sounds, no guarding or rebound /Bladder: no suprapubic tenderness, no CVA or paraspinal tenderness Extermity/Skin: no c/c/e, no obvious rash MSK: FROM x 4 Neuro: CN 2-12 grossly intact, no new focal deficits Psych: calm - Constitutional Vitals: Temp Pulse Resp BP Pulse Ox 98.2 F 93 H 18 194/111 96 04/23/19 12:14 04/23/19 12:28 04/23/19 12:14 04/23/19 12:28 04/23/19 04:08 Plan Activity: other (no strenous activity unless cleared by PCP) Diet: advance as tolerated (full liquid diet and advance over the next day or two) Follow up with: PRIMARY CAREMD [Primary Care Provider] - 3-5 Days NADYA CHEN MD [Staff Physician] - 7 Days TIMOTEO SABA MD [Staff Physician] - 7 Days Prescriptions: cloNIDine-TTS PATCH [Catapres-Tts 0.2mg Patch] 0.2 mg TD We@1000 #10 patch Lispro Insulin [HumaLOG] 1 dose SUB-Q ACHS PRN #1000 units PRN Reason: Hyperglycemia Insulin Glargine [Lantus VIAL] 10 units SUB-Q QAMDIAB #1 vial HYDROcodone/APAP 7.5-325 [[place] 7.5-325 mg TAB] 1 each PO Q6HR PRN #10 tablet PRN Reason: Pain , Severe (7-10) amLODIPine [Norvasc] 10 mg PO DAILY #30 tablet Pantoprazole [Protonix TAB] 20 mg PO QDAY #15 tablet.
[2019-04-23 20:34] VITALS: BP 143/86
== END 2019-04-23 20:22 | disposition home or self-care (01) | DRG 377 ==
LOC: ED 08:32 → 4A 12:07
PROVIDERS: ADMIT Internal Medicine; ATTEND Internal Medicine
PROC: 5A1D70Z Performance of Urinary Filtration, Intermittent, Less than 6 Hours Per Day (ICD-10-PCS; principal; 2019-04-19)
PROC: 5A1D70Z Performance of Urinary Filtration, Intermittent, Less than 6 Hours Per Day (ICD-10-PCS; 2019-04-21)
PROC: 5A1D70Z Performance of Urinary Filtration, Intermittent, Less than 6 Hours Per Day (ICD-10-PCS; 2019-04-23)
DX: K92.2 Gastrointestinal hemorrhage, unspecified (principal); N18.6 End stage renal disease; I16.1 Hypertensive emergency; B20 Human immunodeficiency virus [HIV] disease; I12.0 Hypertensive chronic kidney disease with stage 5 chronic kidney disease or end stage renal disease; K31.84 Gastroparesis; G89.29 Other chronic pain; E83.51 Hypocalcemia; E11.22 Type 2 diabetes mellitus with diabetic chronic kidney disease; E11.43 Type 2 diabetes mellitus with diabetic autonomic (poly)neuropathy; D63.1 Anemia in chronic kidney disease; D63.8 Anemia in other chronic diseases classified elsewhere; K59.00 Constipation, unspecified; G43.909 Migraine, unspecified, not intractable, without status migrainosus; Z90.49 Acquired absence of other specified parts of digestive tract; Z82.49 Family history of ischemic heart disease and other diseases of the circulatory system; Z79.899 Other long term (current) drug therapy; Z88.6 Allergy status to analgesic agent; Z88.5 Allergy status to narcotic agent; Z88.0 Allergy status to penicillin; Z95.828 Presence of other vascular implants and grafts; Z99.2 Dependence on renal dialysis; Z79.84 Long term (current) use of oral hypoglycemic drugs
CPT/HCPCS: 36415; 71045; 80048; 80053; 80074; 80076; 82140; 82550; 82553; 82962; 83036; 83735; 83880; 84484; 85025; 85027; 85379; 85610; 85730; 93005; 93010; 96365; G0378; C9113; J0360; J1170; J1200; J1644; J1815; J2405; J7030

== ENCOUNTER 2019-05-06 09:31 | Emergency (ER) | payer OTHER ==
[2019-05-06] MEDS ORDERED: SODIUM CHLORIDE 0.9% 250ML 250 ML IV ONE (09:55)
--- NOTE | 2019-05-06 10:04 | Emergency Department Report ---
HPI - General Chief Complaint: Back Pain/Injury Time Seen by Provider: 05/06/19 09:53 - HPI HPI: 34-year-old male presents to the emergency department with a complaint of a few days of chills, body aches, low back pain. The patient was at dialysis yester day and was told that he could potentially have an infected dialysis catheter. He did complete dialysis yesterday. He has a past medical history of diabetes, HIV, migraine headaches, hypertension, gastroparesis, and end-stage renal disease on hemodialysis on Thursday//Thursday. His park worker is Dr. Denise. The patient was recently admitted to this hospital at the end of last month for some upper GI issues. He has history of chronic back pains. He has not taken anything for his symptoms prior to presentation. ED Past Medical Hx - Past Medical History Previous Medical History?: Yes Hx Hypertension: Yes Hx Heart Attack/AMI: No Hx Diabetes: Yes Hx Liver Disease: No Hx Renal Disease: Yes Hx Headaches / Migraines: Yes (Migraines) Hx Seizures: No Hx HIV: Yes Additional medical history: HIV. gastroparesis - Surgical History Past Surgical History?: Yes Hx Cholecystectomy: Yes Additional Surgical History: PORT IN CHEST - Social History Smoking Status: Former Smoker Substance Use Type: None - Medications Home Medications: Home Medications Medication Instructions Recorded Confirmed Last Taken Type Labetalol [Labetalol 200mg TAB] 200 mg PO BID #60 tablet 03/02/19 04/19/19 04/18/19 Rx 200 mg hydrALAZINE [Apresoline TAB] 100 mg PO TID #30 tab 03/02/19 04/19/19 04/18/19 Rx 100 mg Ondansetron [Zofran ODT TAB] 4 mg PO Q8HR PRN #20 tab.rapdis 03/14/19 04/19/19 04/18/19 Rx 4 mg Losartan [Cozaar] 50 mg PO QDAY #30 tablet 03/17/19 04/19/19 04/18/19 Rx 50 mg Acetaminophen [Acetaminophen TAB] 1 tab PO Q8H PRN #10 tablet 04/23/19 Unknown Rx HYDROcodone/APAP 7.5-325 [[place] 1 each PO Q6HR PRN #10 tablet 04/23/19 Unknown Rx 7.5-325 mg TAB] Insulin Glargine [Lantus VIAL] 10 units SUB-Q QAMDIAB #1 vial 04/23/19 Unknown Rx Lispro Insulin [HumaLOG] 1 dose SUB-Q ACHS PRN #1000 units 04/23/19 Unknown Rx Metoclopramide [Reglan TAB] 10 mg PO TIDAC #30 tab 04/23/19 04/19/19 04/18/19 Rx 10 mg Pantoprazole [Protonix TAB] 20 mg PO QDAY #15 tablet. 04/23/19 Unknown Rx amLODIPine [Norvasc] 10 mg PO DAILY #30 tablet 04/23/19 Unknown Rx cloNIDine-TTS PATCH [Catapres-Tts 0.2 mg TD We@1000 #10 patch 04/23/19 Unknown Rx 0.2mg Patch] ED Review of Systems ROS: Stated complaint: BACK PAIN/CHILLS/N/V Other details as noted in HPI Comment: All other systems reviewed and negative Constitutional: chills, fever (subjective), weakness Eyes: denies: eye pain, vision change ENT: denies: ear pain, throat pain Respiratory: cough. denies: shortness of breath Cardiovascular: denies: chest pain, palpitations Gastrointestinal: nausea. denies: vomiting Musculoskeletal: back pain, myalgia Skin: denies: rash, lesions Neurological: denies: numbness, paresthesias Physical Exam - Physical Exam Vital Signs: Vital Signs 05/06/19 09:49 Temperature 99.1 F Pulse Rate 121 H Respiratory 24 Rate Blood Pressure 221/137 O2 Sat by Pulse 97 Oximetry Physical Exam: GENERAL: The patient is well-developed well-nourished. HENT: Normocephalic. Atraumatic. Patient has moist mucous membranes. EYES: Extraocular motions are intact. Pupils equal reactive to light bilaterally. NECK: Supple. Trachea is midline. CHEST/LUNGS: Clear to auscultation. There is no respiratory distress noted. There is a right-sided chest port for dialysis in place. HEART/CARDIOVASCULAR: Regular. There is mild tachycardia. There is no murmur. ABDOMEN: Abdomen is soft, nontender. Patient has normal bowel sounds. There is no abdominal distention. SKIN: Skin is warm and dry. NEURO: The patient is awake, alert, and oriented. The patient is cooperative. The patient has no focal neurologic deficits. Normal speech. MUSCULOSKELETAL: There is no tenderness or deformity. There is no evidence of acute injury. BACK: No midline thoracic or lumbar tenderness to palpation, step-off or deformity. There is reproducible bilateral lumbar paraspinal tenderness to palpation. ED Course Vital Signs 05/06/19 09:49 Temperature 99.1 F Pulse Rate 121 H Respiratory 24 Rate Blood Pressure 221/137 O2 Sat by Pulse 97 Oximetry ED Medical Decision Making - Lab Data Result diagrams: 05/06/19 11:00 05/06/19 11:00 - EKG Data -: EKG Interpreted by Me EKG shows normal: sinus rhythm, axis, intervals, QRS complexes, ST-T waves (flat t waves to latearl and inferior leads) Rate: tachycardia (111 bpm) - EKG Data When compared to previous EKG there are: no significant change Interpretation: unchanged when compared t (04/19/19) - Radiology Data Radiology results: image reviewed interpreted by me: Chest x-ray does not show any acute process. There are no pleural effusions, obvious pneumonia and there is no pneumothorax. - Medical Decision Making This patient presents to the emergency department with a complaint of one to 2 days of some chills and body aches including some back pain, which the patient has a chronic history of. He was told by the dialysis clinic that the chills could be secondary to an infected chest dialysis catheter. This catheter was placed 2 weeks ago. He denies any surrounding redness, discharge, chest wall pain or any other obvious signs of infection. The patient did present with some mild tachycardia but that has resolved with pain control. He does have some hypertension but the patient did not take his blood pressure medications yet today. Chest x-ray did not show any pleural effusions, pneumonia, pneumothorax, or any focal consolidation or any other acute process. Patient's labs were mostly unremarkable except for mild hypokalemia with potassium of 3.4 and some anemia of chronic kidney disease with a level of 10.7. Patient was given multiple antihypertensive medications and pain meds and upon reevaluation he is feeling improved. They do not appear to be any signs of sepsis or systemic infection. I spoke with the park worker on-call for Dr. Raza, Dr. Morgan, who feels the patient is safe for discharge home and is not concerned about the chest port as a source of infection at this time. He says that they obtained cultures from the chest port yesterday and if these were to become positive then they would refer him back to the emergency department or "take care of it." Patient was seen ambulatory upon discharge and appears stable. He was instructed to return to the emergency Department with any worsening of his symptoms or any acute distress. Critical Care Time: No Critical care attestation.: If time is entered above; I have spent that time in minutes in the direct care of this critically ill patient, excluding procedure time. ED Disposition Clinical Impression: Chills (without fever), ESRD on hemodialysis Hypertension Qualifiers: Hypertension type: essential hypertension Qualified Code(s): I10 - Essential (primary) hypertension Chronic back pain Qualifiers: Back pain location: low back pain Back pain laterality: unspecified Sciatica presence: without sciatica Qualified Code(s): M54.5 - Low back pain Disposition: TO HOME OR SELFCARE Is pt being admited?: No Condition: Stable Instructions: DASH Eating Plan (ED), Hypertension (ED), Back Pain (ED), End- Stage Kidney Disease (ED) Additional Instructions: Please continue with your normal dialysis regimen. Please continue taking your blood pressure medications as previously prescribed. Try to stay away from foods that are high in salt and caffeinated products. Keep a blood pressure log. Follow-up with your primary care physician, park worker and infectious disease doctors. Return to the emergency Department with any worsening of your symptoms or any acute distress. Referrals: DEANNE NORRIS MD [Primary Care Provider] - 2-3 Days MARCO A RAZA MD [Staff Physician] - 2-3 Days Time of Disposition: 14:36
[2019-05-06] MEDS ORDERED: hydrALAZINE 20 MG/1 ML INJ IV ONE (10:05)
[2019-05-06] MEDS ORDERED: ONDANSETRON 4 MG/2 ML INJ IV ONE (10:05)
[2019-05-06] MEDS ORDERED: HYDROmorphone 1 MG/1 ML INJ IV ONE ×2 (10:05→11:47)
--- NOTE | 2019-05-06 10:36 | XRay Report ---
CHEST 2 VIEWS INDICATION: Cough for 2 days. COMPARISON: 04/19/2019 FINDINGS: Support devices: Right IJ permacath is in good position. Heart: Within normal limits. Lungs/pleura: No acute air space or interstitial disease. No pneumothorax. Additional findings: None. IMPRESSION: No acute findings. Signer Name: Óscar Molina Jr, MD Signed: 05/06/2019 10:31 AM Workstation Name: [id number]
[2019-05-06 11:34] LABS: Basophils # (Auto) 0.1 K/mm3 (0.0-0.1); Basophils % (Auto) 0.7 % (0.0-1.8); Eosinophils % (Auto) 0.3 % (0.0-4.3); Hematocrit 31.6 % (35.5-45.6); Hemoglobin 10.7 gm/dl (11.8-15.2); Lymphocytes # (Auto) 0.9 K/mm3 (1.2-5.4); Lymphocytes % (Auto) 12.7 % (13.4-35.0); Mean Corpuscular HGB Conc 34 % (32-34); Mean Corpuscular Volume 81 fl (84-94); Monocytes # (Auto) 0.4 K/mm3 (0.0-0.8); Monocytes % (Auto) 6.1 % (0.0-7.3); Platelet Count 277 K/mm3 (140-440); Red Blood Count 3.91 M/mm3 (3.65-5.03); Red Cell Distribution Width 16.2 % (13.2-15.2)
[2019-05-06 11:43] LABS: Albumin 3.2 g/dL (3.9-5); Calcium 8.3 mg/dL (8.4-10.2)
[2019-05-06 14:35] VITALS: BP 177/102
== END 2019-05-06 14:51 | disposition home or self-care (01) ==
LOC: ED 09:31
DX: I12.0 Hypertensive chronic kidney disease with stage 5 chronic kidney disease or end stage renal disease (principal); E11.22 Type 2 diabetes mellitus with diabetic chronic kidney disease; N18.6 End stage renal disease; M54.5 Low back pain; G43.909 Migraine, unspecified, not intractable, without status migrainosus; Z99.2 Dependence on renal dialysis; Z21 Asymptomatic human immunodeficiency virus [HIV] infection status; Z90.49 Acquired absence of other specified parts of digestive tract; Z87.891 Personal history of nicotine dependence; Z79.899 Other long term (current) drug therapy; Z79.4 Long term (current) use of insulin
CPT/HCPCS: 36415; 71046; 80053; 82140; 85025; 87040; 93005; 93010; 96365; 96375; 96376; 99284; J0360; J1170; J1956; J2405; J7050

== ENCOUNTER 2019-05-08 14:31 | Inpatient (IN) | payer OTHER ==
[2019-05-08] MEDS ORDERED: ZOFRAN IV ONE (15:16)
[2019-05-08] MEDS ORDERED: APRESOLINE IV ONE (15:16)
[2019-05-08] MEDS ORDERED: ROXICODONE PO ONE (15:18)
--- NOTE | 2019-05-08 15:22 | Emergency Department Report ---
ED General Adult HPI - General Chief complaint: Medical Clearance Stated complaint: ABN LAB Time Seen by Provider: 05/08/19 14:46 Source: patient Mode of arrival: Ambulatory Limitations: No Limitations - History of Present Illness Initial comments: 34-year-old -[place] male patient with extensive medical history history of HIV, hypertension, ESRD on dialysis, gastroparesis, and chronic back pain presents today or positive blood cultures. Patient states he has been having fever, chills, and acute on chronic abdominal and back pain. Pt states he he had blood cultures drawn on -pt reports the tests were negative. Patient was then seen here in ED the following day for worsening symptoms. Cultures were drawn at that time and patient was discharged home after workup was negative. Patient was informed to return to ED today due to positive blood cultures. Patient states he has chronic RUQ pain due to gastroparesis, however this pain is epigastric and worse than normal. Patient also reports a mild cough with yellow sputum and intermittent vomiting of clear fluid. Admits to intermittent diarrhea, however denies hematochezia or black tarry stools. -: Sudden, days(s) Severity scale (0 -10): 8 Consistency: colicky Worsens with: none Associated Symptoms: cough, fever/chills, malaise, nausea/vomiting. denies: confusion, chest pain, headaches, rash, syncope Treatments Prior to Arrival: none - Related Data Previous Rx's Medication Instructions Recorded Last Taken Type Labetalol [Labetalol 200mg TAB] 200 mg PO BID #60 tablet 03/02/19 04/18/19 Rx 200 mg hydrALAZINE [Apresoline TAB] 100 mg PO TID #30 tab 03/02/19 04/18/19 Rx 100 mg Ondansetron [Zofran ODT TAB] 4 mg PO Q8HR PRN #20 tab.rapdis 03/14/19 04/18/19 Rx 4 mg Losartan [Cozaar] 50 mg PO QDAY #30 tablet 03/17/19 04/18/19 Rx 50 mg Acetaminophen [Acetaminophen TAB] 1 tab PO Q8H PRN #10 tablet 04/23/19 Unknown Rx HYDROcodone/APAP 7.5-325 [[place] 1 each PO Q6HR PRN #10 tablet 04/23/19 Unknown Rx 7.5-325 mg TAB] Insulin Glargine [Lantus VIAL] 10 units SUB-Q QAMDIAB #1 vial 04/23/19 Unknown Rx Lispro Insulin [HumaLOG] 1 dose SUB-Q ACHS PRN #1000 units 04/23/19 Unknown Rx Metoclopramide [Reglan TAB] 10 mg PO TIDAC #30 tab 04/23/19 04/18/19 Rx 10 mg Pantoprazole [Protonix TAB] 20 mg PO QDAY #15 tablet. 04/23/19 Unknown Rx amLODIPine [Norvasc] 10 mg PO DAILY #30 tablet 04/23/19 Unknown Rx cloNIDine-TTS PATCH [Catapres-Tts 0.2 mg TD We@1000 #10 patch 04/23/19 Unknown Rx 0.2mg Patch] Allergies Allergy/AdvReac Type Severity Reaction Status Date / Time Penicillins Allergy Hives Verified 04/19/19 13:54 tramadol AdvReac Vomiting Verified 04/19/19 13:54 ED Review of Systems ROS: Stated complaint: ABN LAB Other details as noted in HPI Constitutional: chills, fever, malaise. denies: diaphoresis Eyes: denies: vision change ENT: denies: throat pain, congestion Respiratory: cough (mild ). denies: shortness of breath Cardiovascular: denies: chest pain, palpitations, dyspnea on exertion Endocrine: no symptoms reported Gastrointestinal: abdominal pain, nausea, vomiting (clear), diarrhea. denies: constipation, hematemesis, melena, hematochezia Musculoskeletal: back pain (acute on chronic ) Skin: denies: rash, lesions, change in color Neurological: denies: headache, numbness, paresthesias, abnormal gait Psychiatric: denies: anxiety, depression ED Past Medical Hx - Past Medical History Previous Medical History?: Yes Hx Hypertension: Yes Hx Heart Attack/AMI: No Hx Diabetes: Yes Hx Liver Disease: No Hx Renal Disease: Yes Hx Headaches / Migraines: Yes (Migraines) Hx Seizures: No Hx HIV: Yes Additional medical history: HIV. gastroparesis - Surgical History Past Surgical History?: Yes Hx Cholecystectomy: Yes Additional Surgical History: Dialysis port in right chest. fistula in left arm - Social History Smoking Status: Former Smoker - Medications Home Medications: Home Medications Medication Instructions Recorded Confirmed Last Taken Type Labetalol [Labetalol 200mg TAB] 200 mg PO BID #60 tablet 03/02/19 04/19/19 04/18/19 Rx 200 mg hydrALAZINE [Apresoline TAB] 100 mg PO TID #30 tab 03/02/19 04/19/19 04/18/19 Rx 100 mg Ondansetron [Zofran ODT TAB] 4 mg PO Q8HR PRN #20 tab.rapdis 03/14/19 04/19/19 04/18/19 Rx 4 mg Losartan [Cozaar] 50 mg PO QDAY #30 tablet 03/17/19 04/19/19 04/18/19 Rx 50 mg Acetaminophen [Acetaminophen TAB] 1 tab PO Q8H PRN #10 tablet 04/23/19 Unknown Rx HYDROcodone/APAP 7.5-325 [[place] 1 each PO Q6HR PRN #10 tablet 04/23/19 Unknown Rx 7.5-325 mg TAB] Insulin Glargine [Lantus VIAL] 10 units SUB-Q QAMDIAB #1 vial 04/23/19 Unknown Rx Lispro Insulin [HumaLOG] 1 dose SUB-Q ACHS PRN #1000 units 04/23/19 Unknown Rx Metoclopramide [Reglan TAB] 10 mg PO TIDAC #30 tab 04/23/19 04/19/19 04/18/19 Rx 10 mg Pantoprazole [Protonix TAB] 20 mg PO QDAY #15 tablet.dr 04/23/19 Unknown Rx amLODIPine [Norvasc] 10 mg PO DAILY #30 tablet 04/23/19 Unknown Rx cloNIDine-TTS PATCH [Catapres-Tts 0.2 mg TD We@1000 #10 patch 04/23/19 Unknown Rx 0.2mg Patch] ED Physical Exam - General Limitations: No Limitations General appearance: alert, in no apparent distress - Head Head exam: Present: atraumatic, normocephalic - Eye Eye exam: Present: normal appearance. Absent: scleral icterus - Neck Neck exam: Present: normal inspection, full ROM. Absent: lymphadenopathy - Respiratory Respiratory exam: Present: normal lung sounds bilaterally. Absent: respiratory distress, wheezes, rales, chest wall tenderness - Cardiovascular Cardiovascular Exam: Present: normal rhythm, tachycardia. Absent: irregular rhythm - GI/Abdominal GI/Abdominal exam: Present: soft, tenderness (generalized, but worse in RUQ and epigastric regions ), normal bowel sounds. Absent: distended, guarding, rebound, rigid - Rectal Rectal exam: Present: deferred - Extremities Exam Extremities exam: Present: full ROM. Absent: pedal edema, joint swelling, calf tenderness - Back Exam Back exam: Present: full ROM. Absent: vertebral tenderness - Neurological Exam Neurological exam: Present: alert, oriented X3 - Psychiatric Psychiatric exam: Present: normal affect, normal mood. Absent: anxious - Skin Skin exam: Present: warm, dry, intact, normal color, other (minimal swelling noted overlying fistula of left arm. No overlying erythema noted). Absent: rash ED Course Vital Signs 05/08/19 05/08/19 05/08/19 14:33 14:58 15:56 Temperature 98.3 F Pulse Rate 122 H 118 H 113 H Respiratory 20 16 20 Rate Blood Pressure 227/147 Blood Pressure 236/147 254/131 [Right] O2 Sat by Pulse 95 98 98 Oximetry 05/08/19 05/08/19 05/08/19 17:07 17:46 18:17 Temperature Pulse Rate 103 H 106 H 103 H Respiratory 18 16 Rate Blood Pressure 196/111 211/126 Blood Pressure 196/111 192/111 [Right] O2 Sat by Pulse 98 98 Oximetry - Reevaluation(s) Reevaluation #1: 05/08/19 17:16 Labs without significant abnormalities. Lactic acid still pending. Chest x-ray WNL CT lumbar/thoracic spine and abdomen pending. 05/08/19 17:16 ED Medical Decision Making - Lab Data Result diagrams: 05/08/19 16:06 05/08/19 16:06 - EKG Data EKG shows normal: sinus rhythm Rate: tachycardia - Radiology Data Radiology results: report reviewed CHEST 1 VIEW INDICATION: cough fever weak. COMPARISON: 2 days prior FINDINGS: Support devices: Unchanged. Heart: Stable. Lungs/Pleura: No acute pulmonary or pleural findings. IMPRESSION: 1. No significant change. CT THORACIC SPINE WITHOUT CONTRAST HISTORY: Back pain; fever; history of epidural abscess COMPARISON: None TECHNIQUE: CT images of the thoracic spine were obtained without contrast. Sagittal and coronal reformats were post-processed. All CT scans at this location are performed using CT dose reduction for ALARA by means of automated exposure control. CONTRAST: None. FINDINGS: Alignment: Normal. No traumatic subluxation. Vertebrae:No significant abnormality. No fracture. Disc Spaces: No significant abnormality allowing for lack of intrathecal contrast. Facet Joints:No significant abnormality. Cervicothoracic Junction:No significant abnormality. Additional Findings: Dorsal epidural fat is normal. IMPRESSION: Normal CT scan of the thoracic spine: Within the limitations of nonenhanced CT scan of the lumbar spine, I do not see findings to suggest epidural space lesion in the thoracic spine. MRI scan would be more sensitive. CT ABDOMEN AND PELVIS WITHOUT IV CONTRAST INDICATION: abd pain back pain hx fevers. COMPARISON: CT 02/22/2019. TECHNIQUE: All CT scans at this facility use dose modulation, automated exposure control, iterative reconstruction or weight based dosing, when appropriate, to reduce radiation dose to as low as reasonably achievable. FINDINGS: Lung Bases: No significant abnormality. Skeletal System: No acute abnormality. ABDOMEN: Liver: No significant abnormality. Gallbladder: Removed. Bile Ducts: No significant abnormality. Pancreas: No significant abnormality. Spleen: No significant abnormality. Adrenals: No significant abnormality. Right Kidney: No significant abnormality. Left Kidney: No significant abnormality. Upper GI tract: No significant abnormality. Lymph Nodes: No significant adenopathy. Aorta: No significant abnormality. Additional Findings: No significant abnormality. PELVIS: Colon: No acute abnormality. Urinary Bladder and Distal Ureters: Mild bladder wall thickening may be due at least in part due to relative bladder decompression. Appendix: No significant abnormality. Lymph Nodes: No significant adenopathy. Additional Findings: None. IMPRESSION: 1. Within the limitations of non contrast technique, no acute process in the abdomen or pelvis. 2. Mild bladder wall thickening may be due at least in part due to relative decompression. - Medical Decision Making Thoracic CT WNL. CT abdomen shows mild thickening of the bladder wall, otherwise no acute findings. Lumbar CT pending. Lactic acid initially 2.2. Now increased to 3.5. UA shows mild UTI. Patient given 2 g of Rocephin IV. Discussed patient with Dr. Hicks-patient to be admitted for further evaluation and treatment. Critical care attestation.: If time is entered above; I have spent that time in minutes in the direct care of this critically ill patient, excluding procedure time. ED Disposition Clinical Impression: Positive blood culture, Elevated lactic acid level, Uncontrolled hypertension Disposition: OP ADMIT IP TO THIS HOSP Is pt being admited?: Yes Condition: Stable Instructions: Hypertension (ED) Referrals: PRIMARY CARE, [Primary Care Provider] - 3-5 Days
--- NOTE | 2019-05-08 15:54 | Event Note ---
Date of service: 05/08/19 Face to Face: This is a 34-year-old gentleman, not known to this provider previously. Patient has a past medical history which is quite complex, including end-stage renal disease on dialysis, right thoracic wall permacath, left upper extremity fistula, not sure, describes history of possible epidural abscess in [place] in 2017, now coming in with intermittent fevers, chills, acute on chronic abdominal pain, and acute on chronic back pain. He does not endorse any weakness, or saddle anesthesia or incontinence. He had outpatient blood cultures at his dialysis clinic which she states were negative. He had cultures which were drawn at this facility a few days ago, one set of which was unremarkable, other which maybe grown a contaminant, possible diphtheroids. On his initial examination, he is speaking on a cellular phone, pleasant, not actively vomiting, and he does not appear to be in any acute distress. There is no spinal tenderness on my examination, his abdomen is soft and benign, with no rebound, guarding or peritoneal signs, and his bilateral lower extremities have appropriate strength and sensation, and his exam at this point time is not consistent with acute epidural syndrome. Highly doubts epidural abscess at this time. His morphine allergy is described as nausea, without other symptoms of airway compromise. This is unlikely to be a true anaphylactic/anaphylactoid symptom. He will be given oral pain medication, Zofran, and intravenous antihypertensive therapy. CT scan of thoracic spine, lumbar spine, CT scan of abdomen and pelvis ordered. We have discussed the case with our infectious disease specialist reproduction artist, Dr. Doe, and we both agree that this is very unlikely to be epidural abscess, and we both agreed that holding antibiotic therapy at this time would be reasonable. The physician central supply assistant of record has discussed the case with his fueler, Dr. Peralta, who will follow in consultation. He is fairly hypertensive and tachycardic, therefore, he may benefit from hospitalization for hypertensive urgency, and management of his abnormal vital signs. He makes no complaint of chest pain or exertional shortness of breath. Land to check aforementioned CT scans, peripheral blood cultures, blood cultures from vas cath, provide antihypertensive therapy, and admitted to the inpatient team for further management. This is discussed with the physician central supply assistant of record who verbalizes understanding. The patient does not have a primary care doctor. His fueler is Dr. Peralta. His infectious disease doctors Dr. Carver Vital Signs 05/08/19 05/08/19 14:33 14:58 Temperature 98.3 F Pulse Rate 122 H 118 H Respiratory 20 16 Rate Blood Pressure 227/147 Blood Pressure 236/147 [Right] O2 Sat by Pulse 95 98 Oximetry
--- NOTE | 2019-05-08 15:57 | XRay Report ---
CHEST 1 VIEW INDICATION: cough fever weak. COMPARISON: 2 days prior FINDINGS: Support devices: Unchanged. Heart: Stable. Lungs/Pleura: No acute pulmonary or pleural findings. IMPRESSION: 1. No significant change. Signer Name: Scar Iverson MD Signed: 05/08/2019 3:52 PM Workstation Name: [id number]
[2019-05-08 16:47] LABS: Basophils % (Auto) 0.5 % (0.0-1.8); Eosinophils # (Auto) 0.1 K/mm3 (0.0-0.4); Eosinophils % (Auto) 0.9 % (0.0-4.3); Hemoglobin 10.6 gm/dl (11.8-15.2); Lymphocytes % (Auto) 16.7 % (13.4-35.0); Mean Corpuscular HGB Conc 33 % (32-34); Mean Corpuscular Volume 82 fl (84-94); Monocytes # (Auto) 0.5 K/mm3 (0.0-0.8); Monocytes % (Auto) 7.4 % (0.0-7.3); Platelet Count 270 K/mm3 (140-440); Red Blood Count 3.89 M/mm3 (3.65-5.03); Red Cell Distribution Width 16.3 % (13.2-15.2)
[2019-05-08 16:51] LABS: Albumin 3.5 g/dL (3.9-5); Calcium 8.4 mg/dL (8.4-10.2)
[2019-05-08] MEDS ORDERED: K-DUR PO ONE (16:58)
[2019-05-08 17:11] LABS: Erythrocyte Sedimentation Rate 35 mm/Hr (0-20)
[2019-05-08] MEDS ORDERED: NORMODYNE IV ONE (17:17)
--- NOTE | 2019-05-08 17:22 | Cat Scan Report ---
CT ABDOMEN AND PELVIS WITHOUT IV CONTRAST INDICATION: abd pain back pain hx fevers. COMPARISON: CT 02/22/2019. TECHNIQUE: All CT scans at this facility use dose modulation, automated exposure control, iterative reconstructi on or weight based dosing, when appropriate, to reduce radiation dose to as low as reasonably achieva ble. FINDINGS: Lung Bases: No significant abnormality. Skeletal System: No acute abnormality. ABDOMEN: Liver: No significant abnormality. Gallbladder: Removed. Bile Ducts: No significant abnormality. Pancreas: No significant abnormality. Spleen: No significant abnormality. Adrenals: No significant abnormality. Right Kidney: No significant abnormality. Left Kidney: No significant abnormality. Upper GI tract: No significant abnormality. Lymph Nodes: No significant adenopathy. Aorta: No significant abnormality. Additional Findings: No significant abnormality. PELVIS: Colon: No acute abnormality. Urinary Bladder and Distal Ureters: Mild bladder wall thickening may be due at least in part due to r elative bladder decompression. Appendix: No significant abnormality. Lymph Nodes: No significant adenopathy. Additional Findings: None. IMPRESSION: 1. Within the limitations of non contrast technique, no acute process in the abdomen or pelvis. 2. Mild bladder wall thickening may be due at least in part due to relative decompression. Correlate clinically. Signer Name: Scar Iverson MD Signed: 05/08/2019 5:18 PM Workstation Name: [id number]
[2019-05-08 17:47] LABS: Bacteria,Urine 1+ /HPF (Negative); Bilirubin,Urine NEG (Negative); Blood,Urine SM (Negative); Calcium Oxalate Crystals,Urine FEW; Color,Urine Yellow (Yellow); Hyaline Casts,Urine 1 /LPF; Mucus,Urine FEW /HPF; Urobilinogen,Urine < 2.0 mg/dL (<2.0)
[2019-05-08 17:48] LABS: Protein,Urine >500 mg/dL (Negative)
--- NOTE | 2019-05-08 17:51 | Cat Scan Report ---
CT THORACIC SPINE WITHOUT CONTRAST HISTORY: Back pain; fever; history of epidural abscess COMPARISON: None TECHNIQUE: CT images of the thoracic spine were obtained without contrast. Sagittal and coronal refo rmats were post-processed. All CT scans at this location are performed using CT dose reduction for AL PEARL by means of automated exposure control. CONTRAST: None. FINDINGS: Alignment: Normal. No traumatic subluxation. Vertebrae:No significant abnormality. No fracture. Disc Spaces: No significant abnormality allowing for lack of intrathecal contrast. Facet Joints:No significant abnormality. Cervicothoracic Junction:No significant abnormality. Additional Findings: Dorsal epidural fat is normal. IMPRESSION: Normal CT scan of the thoracic spine: Within the limitations of nonenhanced CT scan of the lumbar spine, I do not see findings to suggest e pidural space lesion in the thoracic spine. MRI scan would be more sensitive. Signer Name: Greg Randhawa MD Signed: 05/08/2019 5:47 PM Workstation Name: [id number]
--- NOTE | 2019-05-08 17:57 | Cat Scan Report ---
CT LUMBAR SPINE WITHOUT CONTRAST HISTORY: Fever; back pain; history of epidural abscess COMPARISON: None TECHNIQUE: CT images of the lumbar spine were obtained without contrast. Sagittal and coronal reform ats were post-processed.All CT scans at this location are performed using CT dose reduction for [place] by means of automated exposure control. CONTRAST: None. FINDINGS: Alignment: Normal. No traumatic subluxation. Vertebrae:No significant abnormality. No fracture. Laminectomy changes are seen at the L4 and L5 leve ls. Disc Spaces: T12-L1, L1-L2 L3 disc spaces are normal. At the L3-L4 disc level, bulging disc is seen. Neuroforamina are normal. At L3-L4 disc level, bulging disc is seen. Neuroforamina are normal. At L4-L5 disc level, laminectomy changes are seen. Broad-based shallow disc protrusion is seen. At L5-S1 level, laminectomy changes are seen. Shallow midline disc bulging is seen. Neuroforamina are normal. Lumbar epidural space is normal. L3 spinous process. Because of the surgery, at the L4 and L5 levels, epidural fat is replaced by what appears to be scar tissue. MRI scan of the more sensitive for epidural abscess. Facet Joints:No significant abnormality. Additional Findings: None IMPRESSION: Laminectomy changes at L4 and L5 levels Epidural fat is normal dorsally at the L3 spinous process. At L4 and L5 levels, because of laminectom y, epidural fibrosis seen dorsally. MR would more sensitive for epidural space lesions. Signer Name: Greg Randhawa MD Signed: 05/08/2019 5:52 PM Workstation Name: [id number]
[2019-05-08] MEDS ORDERED: NACL 0.9% IV ONE (18:13)
[2019-05-08] MEDS ORDERED: ROCEPHIN IV ONE (18:13)
[2019-05-08] MEDS: BACTRIM DS PO SCH (18:45)
[2019-05-08] MEDS ORDERED: ROCEPHIN/NS 2 GM/100 ML 2 GM/100 ML BAG IV ONE (19:00)
[2019-05-08] MEDS ORDERED: APRESOLINE IV PRN ×2 (19:57→20:11)
[2019-05-08] MEDS ORDERED: APRESOLINE ONE (20:05)
[2019-05-08] MEDS ORDERED: DILAUDID ONE (20:05)
[2019-05-08] MEDS ORDERED: D50W (25GM) Syringe IV PRN (20:12)
[2019-05-08] MEDS ORDERED: TYLENOL PO PRN (20:12)
[2019-05-08] MEDS ORDERED: PERCOCET 5/325 PO PRN (20:12)
[2019-05-08] MEDS ORDERED: SODIUM CHLORIDE FLUSH SYRINGE 10 ML IV PRN (20:12)
[2019-05-08] MEDS: DILAUDID IV PRN (20:13)
--- NOTE | 2019-05-08 20:20 | History and Physical Report ---
History of Present Illness Date of examination: 05/08/19 Date of admission: 05/08/19 18:28 Chief complaint: Fever, chills History of present illness: 34-year-old male with history of ESRD on HD, HIV positive, gastroparesis, GI bleed, chronic back pain who presents [facility] ED after being called and by staff for gram positive blood culture 1. Patient presented to the ED on Thursday05/06/19 with complaints of fever and chills. At the time his complaints were nonspecific he not have any signs/symptoms of SIRS/sepsis, blood cultures were drawn and he was discharged home with instructions that if cultures returned positive he will need to come back in for further evaluation. Patient was called earlier today after the preliminary culture results showed Gram-positive Rods resembling Diptheroids in one bottle. The time of my examination patient is sitting up in stretcher with no signs/symptoms of distress. He is afebrile, heart rate and within normal limits. Denies: fever, nausea, vomiting, headache, pain/ drainage from vascath site, or abdominal pain Past History Past Medical History: diabetes, ESRD (on HD T//), HIV/AIDS, hypertension, other (gastroparesis, upper GI bleed) Past Surgical History: Other (right thoracic permacath, left upper extremity AV fistula) Social history: lives with family Family history: no significant family history Medications and Allergies Allergies Allergy/AdvReac Type Severity Reaction Status Date / Time Penicillins Allergy Hives Verified 04/19/19 13:54 tramadol AdvReac Vomiting Verified 04/19/19 13:54 Home Medications Medication Instructions Recorded Confirmed Last Taken Type Labetalol [Labetalol 200mg TAB] 200 mg PO BID #60 tablet 03/02/19 04/19/19 04/18/19 Rx 200 mg hydrALAZINE [Apresoline TAB] 100 mg PO TID #30 tab 03/02/19 04/19/19 04/18/19 Rx 100 mg Ondansetron [Zofran ODT TAB] 4 mg PO Q8HR PRN #20 tab.rapdis 03/14/19 04/19/19 04/18/19 Rx 4 mg Losartan [Cozaar] 50 mg PO QDAY #30 tablet 03/17/19 04/19/19 04/18/19 Rx 50 mg Acetaminophen [Acetaminophen TAB] 1 tab PO Q8H PRN #10 tablet 04/23/19 Unknown Rx HYDROcodone/APAP 7.5-325 [[place] 1 each PO Q6HR PRN #10 tablet 04/23/19 Unknown Rx 7.5-325 mg TAB] Insulin Glargine [Lantus VIAL] 10 units SUB-Q QAMDIAB #1 vial 04/23/19 Unknown Rx Lispro Insulin [HumaLOG] 1 dose SUB-Q ACHS PRN #1000 units 04/23/19 Unknown Rx Metoclopramide [Reglan TAB] 10 mg PO TIDAC #30 tab 04/23/19 04/19/19 04/18/19 Rx 10 mg Pantoprazole [Protonix TAB] 20 mg PO QDAY #15 tablet. 04/23/19 Unknown Rx amLODIPine [Norvasc] 10 mg PO DAILY #30 tablet 04/23/19 Unknown Rx cloNIDine-TTS PATCH [Catapres-Tts 0.2 mg TD We@1000 #10 patch 04/23/19 Unknown Rx 0.2mg Patch] Active Meds: Active Medications Acetaminophen (Tylenol) 650 mg PO Q4H PRN PRN Reason: Pain MILD(1-3)/Fever >100.5/CHOUDHARY Amlodipine Besylate (Norvasc) 10 mg PO DAILY [facility] Clonidine HCl (Catapres-Tts Patch) 0.2 mg TD We@1000 [facility] Dextrose (D50w (25gm) Syringe) 50 ml IV PRN PRN PRN Reason: Hypoglycemia Docusate Sodium (Colace) 100 mg PO BID [facility] Heparin Sodium (Porcine) (Heparin) 5,000 unit SUB-Q Q12HR [facility] Hydralazine HCl (Apresoline) 100 mg PO TID [facility] Hydralazine HCl (Apresoline) 10 mg IV Q3HR PRN PRN Reason: Blood Pressure Hydromorphone HCl (Dilaudid) 1 mg IV Q3H PRN PRN Reason: Pain , Severe (7-10) Last Admin: 05/08/19 20:13 Dose: 1 mg Documented by: Insulin Glargine (Lantus) 10 units SUB-Q QAMDIAB [facility] Insulin Human Lispro (Humalog) 0 unit SUB-Q ACHS [facility]; Protocol Labetalol HCl (Normodyne) 200 mg PO BID [facility] Losartan Potassium (Cozaar) 50 mg PO QDAY [facility] Ondansetron HCl (Zofran) 4 mg IV Q6H PRN PRN Reason: Nausea And Vomiting Oxycodone/Acetaminophen (Percocet 5/325) 1 tab PO Q6H PRN PRN Reason: Pain, Moderate (4-6) Pantoprazole Sodium (Protonix) 20 mg PO QDAY [facility] Sodium Chloride (Sodium Chloride Flush Syringe 10 Ml) 10 ml IV BID [facility] Sodium Chloride (Sodium Chloride Flush Syringe 10 Ml) 10 ml IV PRN PRN PRN Reason: LINE FLUSH Trimethoprim/Sulfamethoxazole (Bactrim Ds) 0.5 each PO Q24HR [facility] Last Admin: 05/08/19 18:45 Dose: 0.5 each Documented by: Review of Systems All systems: negative Constitutional: fever, chills Cardiovascular: high blood pressure Exam - Physical Exam Narrative exam: General appearance: Present: No acute distress, alert and orientedx3, obese, adult male - EENT Eyes: Present: PERRL, EOM intact ENT: hearing intact, normal dentition - Neck Neck: Present: supple, normal ROM - Respiratory Respiratory effort: Non-labored Respiratory: bilateral: CTA - Cardiovascular Heart rate: 103 (bpm) Rhythm:ST Heart Sounds: Present: S1, S2. - Extremities Extremities: no ischemia, pulses intact, upper extremity AV fistula, right chest permacath - Peripheral Assessment Peripheral Pulses: within normal limits - Abdominal General gastrointestinal: soft, obese, non-tender, normal bowel sounds - Integumentary Integumentary: Present: warm, dry - Musculoskeletal Musculoskeletal: able to move all extremities -Neurological Neurological: CN II-XII grossly intact - Psychiatric Psychiatric: cooperative - Constitutional Vitals: Temp Pulse Resp BP Pulse Ox 98.3 F 98 H 13 211/122 96 05/08/19 14:33 05/08/19 20:13 05/08/19 19:31 05/08/19 20:13 05/08/19 19:31 Results - Labs CBC & Chem 7: 05/08/19 16:06 05/08/19 16:06 Labs: Laboratory Last Values WBC 6.2 K/mm3 (4.5-11.0) 05/08/19 16:06 RBC 3.89 M/mm3 (3.65-5.03) 05/08/19 16:06 Hgb 10.6 gm/dl (11.8-15.2) L 05/08/19 16:06 Hct 32.0 % (35.5-45.6) L 05/08/19 16:06 MCV 82 fl (84-94) L 05/08/19 16:06 MCH 27 pg (28-32) L 05/08/19 16:06 MCHC 33 % (32-34) 05/08/19 16:06 RDW 16.3 % (13.2-15.2) H 05/08/19 16:06 Plt Count 270 K/mm3 (140-440) 05/08/19 16:06 Lymph % (Auto) 16.7 % (13.4-35.0) 05/08/19 16:06 [place] % (Auto) 7.4 % (0.0-7.3) H 05/08/19 16:06 Eos % (Auto) 0.9 % (0.0-4.3) 05/08/19 16:06 Baso % (Auto) 0.5 % (0.0-1.8) 05/08/19 16:06 Lymph # 1.0 K/mm3 (1.2-5.4) L 05/08/19 16:06 [place] # 0.5 K/mm3 (0.0-0.8) 05/08/19 16:06 Eos # 0.1 K/mm3 (0.0-0.4) 05/08/19 16:06 Baso # 0.0 K/mm3 (0.0-0.1) 05/08/19 16:06 Seg Neutrophils % 74.5 % (40.0-70.0) H 05/08/19 16:06 Seg Neutrophils # 4.6 K/mm3 (1.8-7.7) 05/08/19 16:06 ESR 35 mm/Hr (0-20) 05/08/19 16:06 PT 12.9 Sec. (12.2-14.9) 05/08/19 16:06 INR 1.00 (0.87-1.13) 05/08/19 16:06 Sodium 141 mmol/L (137-145) 05/08/19 16:06 Potassium 3.3 mmol/L (3.6-5.0) L 05/08/19 16:06 Chloride 97.4 mmol/L (98-107) L 05/08/19 16:06 Carbon Dioxide 28 mmol/L (22-30) 05/08/19 16:06 Anion Gap 19 mmol/L 05/08/19 16:06 BUN 12 mg/dL (9-20) 05/08/19 16:06 Creatinine 3.4 mg/dL (0.8-1.5) H 05/08/19 16:06 Estimated GFR 26 ml/min 05/08/19 16:06 BUN/Creatinine Ratio 4 % 05/08/19 16:06 Glucose 168 mg/dL (75-100) H 05/08/19 16:06 Lactic Acid 3.50 mmol/L (0.7-2.0) H* 05/08/19 17:30 Calcium 8.4 mg/dL (8.4-10.2) 05/08/19 16:06 Magnesium 2.00 mg/dL (1.7-2.3) 05/08/19 16:06 Total Bilirubin 0.70 mg/dL (0.1-1.2) 05/08/19 16:06 AST 24 units/L (5-40) 05/08/19 16:06 ALT 13 units/L (7-56) 05/08/19 16:06 Alkaline Phosphatase 87 units/L (35-129) 05/08/19 16:06 C-Reactive Protein 0.10 mg/dL (0.00-1.30) 05/08/19 16:06 Total Protein 7.5 g/dL (6.3-8.2) 05/08/19 16:06 Albumin 3.5 g/dL (3.9-5) L 05/08/19 16:06 Albumin/Globulin Ratio 0.9 % 05/08/19 16:06 Urine Color Yellow (Yellow) 05/08/19 15:33 Urine Turbidity Slightly-cloudy (Clear) 05/08/19 15:33 Urine pH 5.0 (5.0-7.0) 05/08/19 15:33 Ur Specific [place] 1.025 (1.003-1.030) 05/08/19 15:33 Urine Protein >500 mg/dL (Negative) 05/08/19 15:33 Urine Glucose (UA) >=500 mg/dL (Negative) 05/08/19 15:33 Urine Ketones Neg mg/dL (Negative) 05/08/19 15:33 Urine Blood Sm (Negative) 05/08/19 15:33 Urine Nitrite Neg (Negative) 05/08/19 15:33 Urine Bilirubin Neg (Negative) 05/08/19 15:33 Urine Urobilinogen < 2.0 mg/dL (<2.0) 05/08/19 15:33 Ur Leukocyte Esterase Neg (Negative) 05/08/19 15:33 Urine WBC (Auto) 11.0 /HPF (0.0-6.0) H 05/08/19 15:33 Urine RBC (Auto) 10.0 /HPF (0.0-6.0) 05/08/19 15:33 U Epithel Cells (Auto) 1.0 /HPF (0-13.0) 05/08/19 15:33 Urine Bacteria (Auto) 1+ /HPF (Negative) 05/08/19 15:33 Calcium Oxalate Crystal Few 05/08/19 15:33 Hyaline Casts 1 /LPF 05/08/19 15:33 Urine Mucus Few /HPF 05/08/19 15:33 - Imaging and Cardiology Imaging and Cardiology: CXR: FINDINGS: Support devices: Unchanged. Heart: Stable. Lungs/Pleura: No acute pulmonary or pleural findings. IMPRESSION: 1. No significant change. CT Abd/Pelvis: FINDINGS: Lung Bases: No significant abnormality. Skeletal System: No acute abnormality. ABDOMEN: Liver: No significant abnormality. Gallbladder: Removed. Bile Ducts: No significant abnormality. Pancreas: No significant abnormality. Spleen: No significant abnormality. Adrenals: No significant abnormality. Right Kidney: No significant abnormality. Left Kidney: No significant abnormality. Upper GI tract: No significant abnormality. Lymph Nodes: No significant adenopathy. Aorta: No significant abnormality. Additional Findings: No significant abnormality. PELVIS: Colon: No acute abnormality. Urinary Bladder and Distal Ureters: Mild bladder wall thickening may be due at least in part due to relative bladder decompression. Appendix: No significant abnormality. Lymph Nodes: No significant adenopathy. Additional Findings: None. IMPRESSION: 1. Within the limitations of non contrast technique, no acute process in the abdomen or pelvis. 2. Mild bladder wall thickening may be due at least in part due to relative decompression. Correlate clinically. CT Lumbar Spine: FINDINGS: Alignment: Normal. No traumatic subluxation. Vertebrae:No significant abnormality. No fracture. Laminectomy changes are seen at the L4 and L5 levels. Disc Spaces: T12-L1, L1-L2 L3 disc spaces are normal. At the L3-L4 disc level, bulging disc is seen. Neuroforamina are normal. At L3-L4 disc level, bulging disc is seen. Neuroforamina are normal. At L4-L5 disc level, laminectomy changes are seen. Broad-based shallow disc protrusion is seen. At L5-S1 level, laminectomy changes are seen. Shallow midline disc bulging is seen. Neuroforamina are normal. Lumbar epidural space is normal. L3 spinous process. Because of the surgery, at the L4 and L5 levels, epidural fat is replaced by what appears to be scar tissue. MRI scan of the more sensitive for epidural abscess. Facet Joints:No significant abnormality. Additional Findings: None IMPRESSION: Laminectomy changes at L4 and L5 levels Epidural fat is normal dorsally at the L3 spinous process. At L4 and L5 levels, because of laminectomy, epidural fibrosis seen dorsally. MR would more sensitive for epidural space lesions. CT Thoracic Spine: FINDINGS: Alignment: Normal. No traumatic subluxation. Vertebrae:No significant abnormality. No fracture. Disc Spaces: No significant abnormality allowing for lack of intrathecal contrast. Facet Joints:No significant abnormality. Cervicothoracic Junction:No significant abnormality. Additional Findings: Dorsal epidural fat is normal. IMPRESSION: Normal CT scan of the thoracic spine: Within the limitations of nonenhanced CT scan of the lumbar spine, I do not see findings to suggest epidural space lesion in the thoracic spine. MRI scan would be more sensitive. Assessment and Plan Assessment and plan: 34-year-old male with history of ESRD on HD, HIV positive, gastroparesis, GI bleed, chronic back pain who presents [facility] ED after being called and by staff for preliminary culture results showed Gram-positive Rods resembling Diptheroids in one bottle. He was found to be in hypertensive urgency with systolic blood pressure in the 200s. Patient will be admitted for further evaluation which includes repeat blood cultures, culture from vas cath site, and urine culture collected. Hypertensive urgency -BP on admission 211/122 -Hx Hypertension -Continue to monitor BP -Resume home antihypertensive meds to optimize BP -IV antihypertensive when necessary Positive blood culture -Patient presented to ED on 05/06 with complaints of fever/chills with concerns for dialysis catheter infection -Cultures collect on 05/06, resulted Positive x1: Gram-positive Rods resembling Diptheroids, possible contamination -Repeat blood cultures and Vascath culture drawn today -Received IV Rocephin 1 ED -Will defer antibiotics therapy to ID -ID consult and following Possible UTI -Urine WBC >11 -Urine culture pending -Will hold off on staring abx pending culture ESDR on HD -/ -Last dialyzed on Thursday05/07/19 -Cr 3.4 -Like nephrotoxic agents -Renal dose all meds -Nephrology consult Lactic Acidosis -on admission 2.0; trending up now 3.50 -CXR negative -Received one dose IV abx -Will start on gentle hydration -Continue to monitor Hx HIV -Resume antiretroviral meds Suspicion for Possible Epidural Abscess -CT Thoracic Spine negative -CT Lumbar Spine negative -CT Abd/Pelvis negative DVT PPX -on Heparin Advance Directives: No VTE prophylaxis?: Chemical Plan of care discussed with patient/family: Yes
[2019-05-08] MEDS: NORMODYNE PO SCH (21:55)
[2019-05-08] MEDS: COLACE PO SCH (21:55)
[2019-05-08] MEDS: HEPARIN SUB-Q SCH (21:55)
[2019-05-08] MEDS: HumaLOG SUB-Q SCH (21:56)
[2019-05-08] MEDS: SODIUM CHLORIDE FLUSH SYRINGE 10 ML IV SCH (21:56)
[2019-05-08] MEDS ORDERED: NACL 0.9% 1000 ML 1,000 ML IV SCH (22:00)
[2019-05-08] MEDS ORDERED: BACTRIM DS PO SCH (22:00)
[2019-05-09] MEDS: DILAUDID IV PRN ×4 (04:08→19:07)
[2019-05-09] MEDS: ZOFRAN IV PRN ×2 (05:50→13:55)
[2019-05-09 07:13] LABS: Basophils % (Auto) 0.4 % (0.0-1.8); Eosinophils # (Auto) 0.1 K/mm3 (0.0-0.4); Eosinophils % (Auto) 1.5 % (0.0-4.3); Hematocrit 30.2 % (35.5-45.6); Hemoglobin 9.9 gm/dl (11.8-15.2); Lymphocytes # (Auto) 0.9 K/mm3 (1.2-5.4); Lymphocytes % (Auto) 18.5 % (13.4-35.0); Mean Corpuscular HGB Conc 33 % (32-34); Mean Corpuscular Volume 83 fl (84-94); Monocytes # (Auto) 0.3 K/mm3 (0.0-0.8); Monocytes % (Auto) 6.3 % (0.0-7.3); Platelet Count 245 K/mm3 (140-440); Red Blood Count 3.64 M/mm3 (3.65-5.03); Red Cell Distribution Width 16.9 % (13.2-15.2)
[2019-05-09 07:28] LABS: Calcium 8.2 mg/dL (8.4-10.2)
[2019-05-09] MEDS: LANTUS SUB-Q SCH (09:48)
[2019-05-09] MEDS: BACTRIM DS PO SCH (09:49)
[2019-05-09] MEDS: HumaLOG SUB-Q SCH ×4 (09:49→21:29)
[2019-05-09] MEDS: NORMODYNE PO SCH ×2 (09:51→21:24)
[2019-05-09] MEDS: APRESOLINE PO SCH ×3 (09:51→21:24)
[2019-05-09] MEDS: PROTONIX PO SCH (09:51)
[2019-05-09] MEDS: COLACE PO SCH ×2 (09:52→21:29)
[2019-05-09] MEDS: NORVASC PO SCH (09:52)
[2019-05-09] MEDS: HEPARIN SUB-Q SCH ×2 (09:53→21:25)
[2019-05-09] MEDS: SODIUM CHLORIDE FLUSH SYRINGE 10 ML IV SCH ×2 (09:54→21:33)
[2019-05-09] MEDS ORDERED: COZAAR PO SCH (10:00)
--- NOTE | 2019-05-09 13:35 | Consultation ---
History of Present Illness - Reason for Consult Consult date: 05/09/19 - History of Present Illness 34 y/o male with h/o ESRD in the setting of HIV, HTN, DM well known to our clinic, presented to the ED secondary to positive blood cultures, with initial cultures indicating growth of gram positive rods. Nephrology consulted secondary to needs for chronic dialysis. Patient is on a TTS outpatient schedule, with last HD session on Thursday. Past History Past Medical History: diabetes, ESRD (on HD //), HIV/AIDS, hypertension, other (gastroparesis, upper GI bleed) Past Surgical History: Other (right thoracic permacath, left upper extremity AV fistula) Social history: lives with family Family history: no significant family history Medications and Allergies Allergies Allergy/AdvReac Type Severity Reaction Status Date / Time Penicillins Allergy Hives Verified 04/19/19 13:54 tramadol AdvReac Vomiting Verified 04/19/19 13:54 Home Medications Medication Instructions Recorded Confirmed Last Taken Type Labetalol [Labetalol 200mg TAB] 200 mg PO BID #60 tablet 03/02/19 05/09/1903/28 Rx 200 mg hydrALAZINE [Apresoline TAB] 100 mg PO TID #30 tab 03/02/19 05/09/19 04/18/19 Rx 100 mg Ondansetron [Zofran ODT TAB] 4 mg PO Q8HR PRN #20 tab.rapdis 03/14/19 05/09/19 04/18/19 Rx 4 mg Losartan [Cozaar] 50 mg PO QDAY #30 tablet 03/17/19 05/09/19 04/18/19 Rx 50 mg Acetaminophen [Acetaminophen TAB] 1 tab PO Q8H PRN #10 tablet 04/23/19 05/09/19 Unknown Rx HYDROcodone/APAP 7.5-325 [[place] 1 each PO Q6HR PRN #10 tablet 04/23/19 05/09/19 Unknown Rx 7.5-325 mg TAB] Insulin Glargine [Lantus VIAL] 10 units SUB-Q QAMDIAB #1 vial 04/23/19 05/09/19 Unknown Rx Lispro Insulin [HumaLOG] 1 dose SUB-Q ACHS PRN #1000 units 04/23/19 05/09/19 Unknown Rx Metoclopramide [Reglan TAB] 10 mg PO TIDAC #30 tab 04/23/19 05/09/19 04/18/19 Rx 10 mg Pantoprazole [Protonix TAB] 20 mg PO QDAY #15 tablet. 04/23/19 05/09/19 Unknown Rx amLODIPine [Norvasc] 10 mg PO DAILY #30 tablet 04/23/19 05/09/19 Unknown Rx cloNIDine-TTS PATCH [Catapres-Tts 0.2 mg TD We@1000 #10 patch 04/23/19 05/09/19 Unknown Rx 0.2mg Patch] Active Meds: Active Medications Acetaminophen (Tylenol) 650 mg PO Q4H PRN PRN Reason: Pain MILD(1-3)/Fever >100.5/CHOUDHARY Amlodipine Besylate (Norvasc) 10 mg PO DAILY [facility] Last Admin: 05/09/19 09:52 Dose: 10 mg Documented by: Clonidine HCl (Catapres-Tts Patch) 0.2 mg TD We@1000 [facility] Dextrose (D50w (25gm) Syringe) 50 ml IV PRN PRN PRN Reason: Hypoglycemia Docusate Sodium (Colace) 100 mg PO BID [facility] Last Admin: 05/09/19 09:52 Dose: 100 mg Documented by: Heparin Sodium (Porcine) (Heparin) 5,000 unit SUB-Q Q12HR [facility] Last Admin: 05/09/19 09:53 Dose: 5,000 unit Documented by: Hydralazine HCl (Apresoline) 100 mg PO TID [facility] Last Admin: 05/09/19 13:00 Dose: 100 mg Documented by: Hydralazine HCl (Apresoline) 10 mg IV Q3HR PRN PRN Reason: Blood Pressure Hydromorphone HCl (Dilaudid) 1 mg IV Q3H PRN PRN Reason: Pain , Severe (7-10) Last Admin: 05/09/19 10:01 Dose: 1 mg Documented by: Insulin Glargine (Lantus) 10 units SUB-Q QAMDIAB [facility] Last Admin: 05/09/19 09:48 Dose: 10 units Documented by: Insulin Human Lispro (Humalog) 0 unit SUB-Q ACHS [facility]; Protocol Last Admin: 05/09/19 13:01 Dose: 2 unit Documented by: Labetalol HCl (Normodyne) 200 mg PO BID [facility] Last Admin: 05/09/19 09:51 Dose: 200 mg Documented by: Losartan Potassium (Cozaar) 50 mg PO QDAY [facility] Last Admin: 05/09/19 09:50 Dose: 50 mg Documented by: Ondansetron HCl (Zofran) 4 mg IV Q6H PRN PRN Reason: Nausea And Vomiting Last Admin: 05/09/19 05:50 Dose: 4 mg Documented by: Oxycodone/Acetaminophen (Percocet 5/325) 1 tab PO Q6H PRN PRN Reason: Pain, Moderate (4-6) Last Admin: 05/08/19 23:20 Dose: 1 tab Documented by: Pantoprazole Sodium (Protonix) 20 mg PO QDAY [facility] Last Admin: 05/09/19 09:51 Dose: 20 mg Documented by: Sodium Chloride (Sodium Chloride Flush Syringe 10 Ml) 10 ml IV BID [facility] Last Admin: 05/09/19 09:54 Dose: 10 ml Documented by: Sodium Chloride (Sodium Chloride Flush Syringe 10 Ml) 10 ml IV PRN PRN PRN Reason: LINE FLUSH Trimethoprim/Sulfamethoxazole (Bactrim Ds) 0.5 each PO Q24HR [facility] Last Admin: 05/09/19 09:49 Dose: 0.5 each Documented by: Review of Systems All systems: negative Constitutional: chills, weakness, malaise Exam - Vital Signs Vital signs: Vital Signs Temp Pulse Resp BP Pulse Ox 98.3 F 122 H 20 227/147 95 05/08/19 14:33 05/08/19 14:33 05/08/19 14:33 05/08/19 14:33 05/08/19 14:33 - General Appearance General appearance: well-developed, well-nourished, appears stated age EENT: ATNC, PERRL Neck: Present: neck supple, trachea midline Respiratory: Clear to Ascultation, Normal Exam Heart: regular, S1S2 Gastrointestinal: Present: normal, normoactive bowel sounds Integumentary: no rash, warm and dry Neurologic: no focal deficit, no asterixis Psychiatric: mood/affect appropriate, cooperative Results - Lab Results 05/09/19 06:28 05/09/19 06:28 Most recent lab results Calcium 8.2 mg/dL (8.4-10.2) L 05/09/19 06:28 Magnesium 2.00 mg/dL (1.7-2.3) 05/08/19 16:06 Assessment and Plan - Patient Problems (1) Bacteremia Current Visit: Yes Status: Acute Plan to address problem: Follow up on repeat blood cultures. Recommendation for antibiotics per ID. (2) ESRD on hemodialysis Current Visit: No Status: Chronic Plan to address problem: Continue on TTS inpatient HD schedule. (3) Hypertensive chronic kidney disease with stage 5 chronic kidney disease or end stage renal disease Current Visit: Yes Status: Chronic Plan to address problem: Monitor on current antihypertensive regimen. (4) HIV (human immunodeficiency virus infection) Current Visit: No Status: Chronic Qualifiers: HIV symptom status: unspecified Qualified Code(s): B20 - Human immunodeficiency virus [HIV] disease Plan to address problem: Continue on current HAART therapy.
--- NOTE | 2019-05-09 13:58 | Consultation ---
History of Present Illness - Reason for Consult Consult date: 05/09/19 ?line sepsis v/s bacteremia Requesting physician: CHELSIE JEAN - History of Present Illness The patient is a 34-year-old male with HIV, ESRD, recently started hemodialysis around January 2019, gastroparesis, chronic back pain, history of lumbar spine epidural abscess requiring laminectomy and treatment [facility] came into the emergency room on 05/06/2019 with complaints of fever and chills going on for about a week. These symptoms were also present at dialysis and hence he had blood cultures drawn at dialysis. Symptoms persisting, he was advised to come to the ER where he had blood cultures drawn. One of them don't positive for gram-positive rods and hence patient was asked to come back for admission. Infectious diseases was consulted for additional recommendations. Still feels that he has some chills occasionally but he has had no fevers here. Having nausea and vomiting. Recently had his HIV meds changed to norvir, darunavir and Juluca once daily, started seeing Dr. Conley. He also has been having some back pain. Review of Systems: General: subjective fever and chills HEENT: no new visual disturbance Respiratory: No cough, sputum, hemoptysis or shortness of breath Cardiovascular: No chest pain, syncope Gastrointestinal: No nausea, vomiting or diarrhea Genitourinary: No dysuria or hematuria Musculoskeletal: No new or worsening neck pain. Acute on Chronic back pain + Neurologic: No headaches, seizures Hematologic: No easy bruising or bleeding Endocrine: No night sweats or acute weight loss Skin: negative for rash, jaundice Psychiatric: No suicidal or homicidal ideation Past History Past Medical History: diabetes, ESRD (on HD T//), HIV/AIDS, hypertension, other (gastroparesis, upper GI bleed) Past Surgical History: Other (right thoracic permacath, left upper extremity AV fistula) Social history: lives with family Family history: no significant family history Medications and Allergies Allergies Allergy/AdvReac Type Severity Reaction Status Date / Time Penicillins Allergy Hives Verified 04/19/19 13:54 tramadol AdvReac Vomiting Verified 04/19/19 13:54 Home Medications Medication Instructions Recorded Confirmed Last Taken Type Labetalol [Labetalol 200mg TAB] 200 mg PO BID #60 tablet 08/02/1105/09/19 04/18/19 Rx 200 mg hydrALAZINE [Apresoline TAB] 100 mg PO TID #30 tab 03/02/19 05/09/19 04/18/19 Rx 100 mg Ondansetron [Zofran ODT TAB] 4 mg PO Q8HR PRN #20 tab.rapdis 03/14/19 05/09/19 04/18/19 Rx 4 mg Losartan [Cozaar] 50 mg PO QDAY #30 tablet 03/17/19 05/09/19 04/18/19 Rx 50 mg Acetaminophen [Acetaminophen TAB] 1 tab PO Q8H PRN #10 tablet 04/23/19 05/09/19 Unknown Rx HYDROcodone/APAP 7.5-325 [[place] 1 each PO Q6HR PRN #10 tablet 04/23/19 05/09/19 Unknown Rx 7.5-325 mg TAB] Insulin Glargine [Lantus VIAL] 10 units SUB-Q QAMDIAB #1 vial 04/23/19 05/09/19 Unknown Rx Lispro Insulin [HumaLOG] 1 dose SUB-Q ACHS PRN #1000 units 04/23/19 05/09/19 Unknown Rx Metoclopramide [Reglan TAB] 10 mg PO TIDAC #30 tab 04/23/19 05/09/19 04/18/19 Rx 10 mg Pantoprazole [Protonix TAB] 20 mg PO QDAY #15 tablet. 04/23/19 05/09/19 Unknown Rx amLODIPine [Norvasc] 10 mg PO DAILY #30 tablet 04/23/19 05/09/19 Unknown Rx cloNIDine-TTS PATCH [Catapres-Tts 0.2 mg TD We@1000 #10 patch 04/23/19 05/09/19 Unknown Rx 0.2mg Patch] Active Meds: Active Medications Acetaminophen (Tylenol) 650 mg PO Q4H PRN PRN Reason: Pain MILD(1-3)/Fever >100.5/CHOUDHARY Amlodipine Besylate (Norvasc) 10 mg PO DAILY [facility] Last Admin: 05/09/19 09:52 Dose: 10 mg Documented by: Clonidine HCl (Catapres-Tts Patch) 0.2 mg TD We@1000 SHIRA Darunavir (Prezista) 800 mg PO QDAY [facility] Dextrose (D50w (25gm) Syringe) 50 ml IV PRN PRN PRN Reason: Hypoglycemia Docusate Sodium (Colace) 100 mg PO BID [facility] Last Admin: 05/09/19 09:52 Dose: 100 mg Documented by: Heparin Sodium (Porcine) (Heparin) 5,000 unit SUB-Q Q12HR [facility] Last Admin: 05/09/19 09:53 Dose: 5,000 unit Documented by: Hydralazine HCl (Apresoline) 100 mg PO TID [facility] Last Admin: 05/09/19 13:00 Dose: 100 mg Documented by: Hydralazine HCl (Apresoline) 10 mg IV Q3HR PRN PRN Reason: Blood Pressure Hydromorphone HCl (Dilaudid) 1 mg IV Q3H PRN PRN Reason: Pain , Severe (7-10) Last Admin: 05/09/19 10:01 Dose: 1 mg Documented by: Insulin Glargine (Lantus) 10 units SUB-Q QAMDIAB [facility] Last Admin: 05/09/19 09:48 Dose: 10 units Documented by: Insulin Human Lispro (Humalog) 0 unit SUB-Q [facility]; Protocol Last Admin: 05/09/19 13:01 Dose: 2 unit Documented by: Labetalol HCl (Normodyne) 200 mg PO BID [facility] Last Admin: 05/09/19 09:51 Dose: 200 mg Documented by: Losartan Potassium (Cozaar) 50 mg PO QDAY [facility] Last Admin: 05/09/19 09:50 Dose: 50 mg Documented by: Ondansetron HCl (Zofran) 4 mg IV Q6H PRN PRN Reason: Nausea And Vomiting Last Admin: 05/09/19 05:50 Dose: 4 mg Documented by: Oxycodone/Acetaminophen (Percocet 5/325) 1 tab PO Q6H PRN PRN Reason: Pain, Moderate (4-6) Last Admin: 05/08/19 23:20 Dose: 1 tab Documented by: Pantoprazole Sodium (Protonix) 20 mg PO QDAY [facility] Last Admin: 05/09/19 09:51 Dose: 20 mg Documented by: Ritonavir (Norvir) 100 mg PO QDAY [facility] Sodium Chloride (Sodium Chloride Flush Syringe 10 Ml) 10 ml IV BID [facility] Last Admin: 05/09/19 09:54 Dose: 10 ml Documented by: Sodium Chloride (Sodium Chloride Flush Syringe 10 Ml) 10 ml IV PRN PRN PRN Reason: LINE FLUSH Physical Examination - Physical Exam Narrative exam: Physical Exam: Constitutional: Alert, cooperative. No acute distress Head, Ears, Nose: Normocephalic, atraumatic. External ears, nose normal Eyes: Conjunctivae/corneas clear. No icterus. No ptosis. Neck: Supple, no meningeal signs Oral: dentition fair, no thrush Cardiovascular: S1, S2 normal. Respiratory: Good air entry, clear to auscultation bilaterally GI: Soft, non-tender; bowel sounds normal. No peritoneal signs Musculoskeletal: No pedal edema, no cyanosis. HD cath + c/d/i. Lumbar scar well healed Skin: No rash or abscess. Hem/Lymphatic: No palpable cervical or supraclavicular nodes. No lymphangitis Psych: Mood ok. Affect normal Neurological: Awake, alert, oriented. No gross abnormality - Constitutional Vitals: Vital Signs Temp Pulse Resp BP Pulse Ox 98.3 F 95 H 22 152/86 96 05/09/19 11:58 05/09/19 11:58 05/09/19 11:58 05/09/19 11:58 05/09/19 11:58 Temperature -Last 24 Hours Temperature 98.3 F Temperature 98.0 F Temperature 97.8 F Temperature 98.3 F Temperature 98.3 F Results - Labs CBC & Chem 7: 05/09/19 06:28 05/09/19 06:28 Labs: Abnormal lab results 05/08/19 05/08/19 05/08/19 Range/Units 15:33 16:06 16:06 RBC (3.65-5.03) M/mm3 Hgb (11.8-15.2) gm/dl Hct (35.5-45.6) % MCV (84-94) fl MCH (28-32) pg RDW (13.2-15.2) % [place] % (Auto) (0.0-7.3) % Lymph # (1.2-5.4) K/mm3 Seg Neutrophils % (40.0-70.0) % Potassium 3.3 L (3.6-5.0) mmol/L Chloride 97.4 L (98-107) mmol/L Creatinine 3.4 H (0.8-1.5) mg/dL Glucose 168 H (75-100) mg/dL POC Glucose (70-105) Lactic Acid 2.20 H* (0.7-2.0) mmol/L Calcium (8.4-10.2) mg/dL Albumin 3.5 L (3.9-5) g/dL Urine WBC (Auto) 11.0 H (0.0-6.0) /HPF 05/08/19 05/08/19 05/08/19 Range/Units 16:06 17:30 21:57 RBC (3.65-5.03) M/mm3 Hgb 10.6 L (11.8-15.2) gm/dl Hct 32.0 L (35.5-45.6) % MCV 82 L (84-94) fl MCH 27 L (28-32) pg RDW 16.3 H (13.2-15.2) % [place] % (Auto) 7.4 H (0.0-7.3) % Lymph # 1.0 L (1.2-5.4) K/mm3 Seg Neutrophils % 74.5 H (40.0-70.0) % Potassium (3.6-5.0) mmol/L Chloride (98-107) mmol/L Creatinine (0.8-1.5) mg/dL Glucose (75-100) mg/dL POC Glucose 136 H (70-105) Lactic Acid 3.50 H* (0.7-2.0) mmol/L Calcium (8.4-10.2) mg/dL Albumin (3.9-5) g/dL Urine WBC (Auto) (0.0-6.0) /HPF 05/09/19 05/09/19 05/09/19 Range/Units 06:28 06:28 08:34 RBC 3.64 L (3.65-5.03) M/mm3 Hgb 9.9 L (11.8-15.2) gm/dl Hct 30.2 L (35.5-45.6) % MCV 83 L (84-94) fl MCH 27 L (28-32) pg RDW 16.9 H (13.2-15.2) % [place] % (Auto) (0.0-7.3) % Lymph # 0.9 L (1.2-5.4) K/mm3 Seg Neutrophils % 73.3 H (40.0-70.0) % Potassium 3.3 L (3.6-5.0) mmol/L Chloride (98-107) mmol/L Creatinine 3.9 H (0.8-1.5) mg/dL Glucose 171 H (75-100) mg/dL POC Glucose 186 H (70-105) Lactic Acid (0.7-2.0) mmol/L Calcium 8.2 L (8.4-10.2) mg/dL Albumin (3.9-5) g/dL Urine WBC (Auto) (0.0-6.0) /HPF 05/09/19 Range/Units 12:10 RBC (3.65-5.03) M/mm3 Hgb (11.8-15.2) gm/dl Hct (35.5-45.6) % MCV (84-94) fl MCH (28-32) pg RDW (13.2-15.2) % [place] % (Auto) (0.0-7.3) % Lymph # (1.2-5.4) K/mm3 Seg Neutrophils % (40.0-70.0) % Potassium (3.6-5.0) mmol/L Chloride (98-107) mmol/L Creatinine (0.8-1.5) mg/dL Glucose (75-100) mg/dL POC Glucose 150 H (70-105) Lactic Acid (0.7-2.0) mmol/L Calcium (8.4-10.2) mg/dL Albumin (3.9-5) g/dL Urine WBC (Auto) (0.0-6.0) /HPF - Imaging and Cardiology Chest x-ray: report reviewed, image reviewed (Chest x-ray shows no evidence of pneumonia.) CT scan - abdomen: report reviewed, image reviewed (CT abdomen and pelvis without contrast showed no acute findings. CT of the lumbar and thoracic spine showed no acute abnormality, show prior evidence of laminectomy in the lumbar spine.) Assessment and Plan Cultures: 05/06/2019 blood culture: One out of 4 bottles positive for diphtheroids 05/08/2019 blood culture: In progress 05/08/2019 blood culture from Vas-Cath: in progress 05/08/2019 urine culture: No growth A/P: 34-year-old male with HIV, ESRD, recently started hemodialysis around January 2019, gastroparesis, chronic back pain, history of lumbar spine epidural abscess requiring laminectomy and treatment with 6 [facility] with: 1) GPR bacteremia: One out of 4 bottles positive for diphtheroids, likely contaminant. No treatment needed. HD cath can remain in place. 2) Acute on chronic back pain: CT abdomen and pelvis, thoracic and lumbar spine without any acute abnormality. He has evidence of prior laminectomy. Does have a history of epidural abscess in 2017 treated with IV antibiotics. Currently, his CRP is low, no suspicion for recurrence. No fever here, no leucocytosis. 3) ESRD on hemodialysis 4) HIV: Compliant with therapy, last viral load in January 2019 was undetectable. CD4 count of 599. Currently, on norvir, darunavir and Juluca once daily, started seeing Dr. Conley. Recs: continue HIV meds no antibiotics needed f/u pending blood cultures remains stable from ID standpoint for discharge 07/30 diptheroids in blood culture likely represent contaminant, HD cath can remain in place Tu Doe MD, FACP [facility] ([facility] C: [phone] O: [phone] F: [phone]
[2019-05-09] MEDS ORDERED: REGLAN IV PRN (17:24)
[2019-05-09] MEDS: NORVIR PO SCH (17:27)
[2019-05-09] MEDS: TIVICAY PO SCH (17:27)
[2019-05-09] MEDS: PREZISTA PO SCH (17:27)
[2019-05-09] MEDS: REGLAN IV PRN (18:45)
--- NOTE | 2019-05-09 20:20 | Progress Note ---
Assessment and Plan The patient is a 34-year-old male with HIV, ESRD, recently started hemodialysis around January 2019, gastroparesis, chronic back pain, history of lumbar spine epidural abscess requiring laminectomy and treatment with 6 weeks of IV antibiotics back in 2017 at [facility] initially came into the emergency room on 05/06/2019 with complaints of fever and chills going on for about a week. These symptoms were also present at dialysis and hence he had blood cultures drawn at dialysis. Symptoms persisting, he was advised to come to the ER where he had blood cultures drawn. One of four bottles was positive for gram-positive rods and hence patient was asked to come back for admission. GPR Bacteremia -Patient presented to ED on 05/06 with complaints of fever/chills with concerns for dialysis catheter infection -Cultures collect on 05/06, resulted Positive x1: Gram-positive Rods resembling Diptheroids, possible contamination -Repeat blood cultures and Vascath culture drawn today -Received IV Rocephin 1 ED -Will defer antibiotics therapy to ID -ID consult and following Lactic Acidosis -on admission 2.0; trending up now 3.50 -CXR negative -Received one dose IV abx -Will start on gentle hydration -Continue to monitor Hypertensive urgency -BP on admission 211/122 -Hx Hypertension -Continue to monitor BP -Resume home antihypertensive meds to optimize BP -IV antihypertensive when necessary Hx HIV -Resume antiretroviral meds Possible UTI -Urine WBC >11 -Urine culture pending -Will hold off on staring abx pending culture ESDR on HD -// -Last dialyzed on Thursday05/07/19 -Cr 3.4 -Like nephrotoxic agents -Renal dose all meds -Nephrology consult Suspicion for Possible Epidural Abscess -CT Thoracic Spine negative -CT Lumbar Spine negative -CT Abd/Pelvis negative DVT PPX -on Heparin Subjective Date of service: 05/09/19 Principal diagnosis: Gram-positive Road bacteremia, ESRD on HD, HIV, history of epidural abscess Interval history: Patient seen and examined. Denies any fever. Ambulates with walker. No nausea vomiting. Objective - Exam Narrative Exam: Constitutional: Well-nourished well-developed. In no distress Head: Normocephalic atraumatic Eyes: Pupils are equal round and reactive to light Nose: No enlarged turbinates, no septal deviation. Mouth: Moist mucous membranes. Neck: Supple no thyromegaly. No bruit. No JVD Heart: Regular rate and rhythm, S1-S2 normal. No rubs murmurs or gallop Lungs: Clear to auscultation bilaterally. no rales or rhonchi Abdomen: Soft, nontender. Bowel sound are present. Extremities: No edema, no cyanosis, no clubbing. Neuro: Alert oriented Oriented x3. No focal sensory or motor deficit. Skin: No rashes or hyperpigmented spots Musculoskeletal system: No joint pain or swelling Hematological: No petechia or subcutanous hemorrhages. Immunological: No multiple septic spots on the skin Lymphatic: No generalized lymphadenopathy Psychiatry: Euthymic. Calm. - Constitutional Vitals: Vital Signs - 12hr 05/09/19 05/09/19 05/09/19 09:50 09:51 09:52 Temperature Pulse Rate 98 H 98 H 98 H Respiratory Rate Blood Pressure 180/99 180/99 180/99 O2 Sat by Pulse Oximetry 05/09/19 05/09/19 05/09/19 11:58 18:51 19:07 Temperature 98.3 F 98.4 F Pulse Rate 95 H 104 H 104 H Respiratory 22 20 Rate Blood Pressure 152/86 190/108 190/108 O2 Sat by Pulse 96 97 Oximetry - Labs CBC & Chem 7: 05/09/19 06:28 05/09/19 06:28 Labs: Abnormal lab results 05/08/19 05/09/19 05/09/19 Range/Units 21:57 06:28 06:28 RBC 3.64 L (3.65-5.03) M/mm3 Hgb 9.9 L (11.8-15.2) gm/dl Hct 30.2 L (35.5-45.6) % MCV 83 L (84-94) fl MCH 27 L (28-32) pg RDW 16.9 H (13.2-15.2) % Lymph # 0.9 L (1.2-5.4) K/mm3 Seg Neutrophils % 73.3 H (40.0-70.0) % Potassium 3.3 L (3.6-5.0) mmol/L Creatinine 3.9 H (0.8-1.5) mg/dL Glucose 171 H (75-100) mg/dL POC Glucose 136 H (70-105) Calcium 8.2 L (8.4-10.2) mg/dL 05/09/19 05/09/19 05/09/19 Range/Units 08:34 12:10 15:56 RBC (3.65-5.03) M/mm3 Hgb (11.8-15.2) gm/dl Hct (35.5-45.6) % MCV (84-94) fl MCH (28-32) pg RDW (13.2-15.2) % Lymph # (1.2-5.4) K/mm3 Seg Neutrophils % (40.0-70.0) % Potassium (3.6-5.0) mmol/L Creatinine (0.8-1.5) mg/dL Glucose (75-100) mg/dL POC Glucose 186 H 150 H 111 H (70-105) Calcium (8.4-10.2) mg/dL
[2019-05-10] MEDS: DILAUDID IV PRN ×3 (02:11→14:57)
[2019-05-10] MEDS: REGLAN IV PRN (02:11)
[2019-05-10] MEDS: HumaLOG SUB-Q SCH ×3 (07:30→11:30)
[2019-05-10] MEDS: PROTONIX PO SCH ×2 (08:15→19:22)
[2019-05-10] MEDS: APRESOLINE PO SCH ×2 (08:15→15:03)
[2019-05-10] MEDS: LANTUS SUB-Q SCH (08:37)
[2019-05-10] MEDS ORDERED: NACL 0.9% 100 ML IV PRN (09:22)
[2019-05-10] MEDS ORDERED: PROCRIT IV PRN (09:22)
--- NOTE | 2019-05-10 09:24 | Progress Note ---
Assessment and Plan - Patient Problems (1) Bacteremia Current Visit: Yes Status: Acute Plan to address problem: Follow up on repeat blood cultures. Recommendation per ID noted, and likely contaminant. No antibiotics at this time per ID recommendations. (2) ESRD on hemodialysis Current Visit: No Status: Chronic Plan to address problem: Continue on TTS inpatient HD schedule. (3) Hypertensive chronic kidney disease with stage 5 chronic kidney disease or end stage renal disease Current Visit: Yes Status: Chronic Plan to address problem: Monitor on current antihypertensive regimen. Will increase his losartan to 100 mg. (4) HIV (human immunodeficiency virus infection) Current Visit: No Status: Chronic Qualifiers: HIV symptom status: unspecified Qualified Code(s): B20 - Human immunodeficiency virus [HIV] disease Plan to address problem: Continue on current HAART therapy. Subjective Date of service: 05/10/19 Principal diagnosis: Gram-positive Road bacteremia, ESRD on HD, HIV, history of epidural abscess Interval history: No acute issues overnight. ID consult noted, 07/30 bottles (+) diptheroids. He has no fevers, thought is that positive blood culture is likely contaminant. Blood pressures elevated this am and will titrate his dose of losartan to 100 mg. Plan for HD today. Objective - Vital Signs Vital signs: Vital Signs - 12hr 05/09/19 21:24 Blood Pressure 164/100 - General Appearance General appearance: well-developed, well-nourished, appears stated age EENT: ATNC, PERRL Neck: no JVD, no thyromegaly Respiratory: Present: Clear to Ascultation, Normal Exam Cardiology: regular, normal heart rate, S1S2 Gastrointestinal: normal, normoactive bowel sounds Integumentary: no rash, warm and dry Neurologic: no focal deficit, alert and oriented x3 Psychiatric: mood/affect appropriate, cooperative - Lab 05/09/19 06:28 05/09/19 06:28 Most recent lab results Calcium 8.2 mg/dL (8.4-10.2) L 05/09/19 06:28 Magnesium 2.00 mg/dL (1.7-2.3) 05/08/19 16:06 - Imaging Chest x-ray: pending Medications & Allergies - Medications Allergies/Adverse Reactions: Allergies Penicillins Allergy (Verified 04/19/19 13:54) Hives tramadol Adverse Reaction (Verified 04/19/19 13:54) Vomiting Home Medications: Home Medications Medication Instructions Recorded Confirmed Last Taken Type Labetalol [Labetalol 200mg TAB] 200 mg PO BID #60 tablet 03/02/19 05/09/19 04/18/19 Rx 200 mg hydrALAZINE [Apresoline TAB] 100 mg PO TID #30 tab 03/02/19 05/09/19 04/18/19 Rx 100 mg Ondansetron [Zofran ODT TAB] 4 mg PO Q8HR PRN #20 tab.rapdis 03/14/19 05/09/19 04/18/19 Rx 4 mg Losartan [Cozaar] 50 mg PO QDAY #30 tablet 03/17/19 05/09/19 04/18/19 Rx 50 mg Acetaminophen [Acetaminophen TAB] 1 tab PO Q8H PRN #10 tablet 04/23/19 05/09/19 Unknown Rx HYDROcodone/APAP 7.5-325 [[place] 1 each PO Q6HR PRN #10 tablet 04/23/19 05/09/19 Unknown Rx 7.5-325 mg TAB] Insulin Glargine [Lantus VIAL] 10 units SUB-Q QAMDIAB #1 vial 04/23/19 05/09/19 Unknown Rx Lispro Insulin [HumaLOG] 1 dose SUB-Q ACHS PRN #1000 units 04/23/19 05/09/19 Unknown Rx Metoclopramide [Reglan TAB] 10 mg PO TIDAC #30 tab 04/23/19 05/09/19 04/18/19 Rx 10 mg Pantoprazole [Protonix TAB] 20 mg PO QDAY #15 tablet. 04/23/19 05/09/19 Unknown Rx amLODIPine [Norvasc] 10 mg PO DAILY #30 tablet 04/23/19 05/09/19 Unknown Rx cloNIDine-TTS PATCH [Catapres-Tts 0.2 mg TD We@1000 #10 patch 04/23/19 05/09/19 Unknown Rx 0.2mg Patch] Active Medications: Generic Name Dose Route Start Last Admin Trade Name Freq PRN Reason Stop Dose Admin Acetaminophen 650 mg 05/08/19 20:12 Tylenol PO Q4H PRN Pain MILD(1-3)/Fever >100.5/CHOUDHARY Amlodipine Besylate 10 mg 05/09/19 10:00 05/09/19 09:52 Norvasc PO 10 mg DAILY SHIRA Administration Clonidine HCl 0.2 mg 05/11/19 10:00 Catapres-Tts Patch TD We@1000 [facility] Darunavir 800 mg 05/09/19 14:00 05/09/19 17:27 Prezista PO 800 mg QDAY SHIRA Administration Dextrose 50 ml 05/08/19 20:12 D50w (25gm) Syringe IV PRN PRN Hypoglycemia Docusate Sodium 100 mg 05/08/19 22:00 05/09/19 21:29 Colace PO 100 mg BID SHIRA Administration Heparin Sodium (Porcine) 5,000 unit 05/08/19 22:00 05/09/19 21:25 Heparin SUB-Q 5,000 unit Q12HR SHIRA Administration Hydralazine HCl 100 mg 05/09/19 08:00 05/10/19 08:15 Apresoline PO 100 mg TID SHIRA Administration Hydralazine HCl 10 mg 05/08/19 20:11 05/09/19 19:07 Apresoline IV 10 mg Q3HR PRN Administration Blood Pressure Hydromorphone HCl 1 mg 05/08/19 20:00 05/10/19 08:16 Dilaudid IV 1 mg Q3H PRN Administration Pain , Severe (7-10) Insulin Glargine 10 units 05/09/19 08:00 05/10/19 08:37 Lantus SUB-Q 10 units QAMDIAB SHIRA Administration Insulin Human Lispro 0 unit 05/08/19 22:00 05/10/19 08:40 Humalog SUB-Q 4 unit ACHS SHIRA Administration Protocol Labetalol HCl 200 mg 05/08/19 22:00 05/09/19 21:24 Normodyne PO 200 mg BID SHIRA Administration Losartan Potassium 50 mg 05/09/19 10:00 05/09/19 09:50 Cozaar PO 50 mg QDAY SHIRA Administration Metoclopramide HCl 10 mg 05/09/19 17:51 05/10/19 02:11 Reglan IV 10 mg Q8H PRN Administration Nausea And Vomiting Oxycodone/Acetaminophen 1 tab 05/08/19 20:12 05/08/19 23:20 Percocet 5/325 PO 1 tab Q6H PRN Administration Pain, Moderate (4-6) Pantoprazole Sodium 20 mg 05/09/19 10:00 05/10/19 08:15 Protonix PO 20 mg QDAY SHIRA Administration Ritonavir 100 mg 05/09/19 14:00 05/09/19 17:27 Norvir PO 100 mg QDAY SHIRA Administration Sodium Chloride 10 ml 05/08/19 22:00 05/09/19 21:33 Sodium Chloride Flush Syringe 10 Ml IV 10 ml BID SHIRA Administration Sodium Chloride 10 ml 05/08/19 20:12 Sodium Chloride Flush Syringe 10 Ml IV PRN PRN LINE FLUSH
[2019-05-10] MEDS ORDERED: COZAAR PO SCH (10:00)
[2019-05-10] MEDS ORDERED: REGLAN IV PRN (10:00)
[2019-05-10] MEDS: HEPARIN SUB-Q SCH (10:00)
[2019-05-10] MEDS ORDERED: NORMODYNE PO SCH (11:03)
--- NOTE | 2019-05-10 12:39 | Discharge Summary ---
Providers - Providers Date of Admission: 05/08/19 18:28 Date of discharge: 05/10/19 Attending physician: BABAR BOYLE 05/08/19 15:17 Consult to Physician [CONS] Urgent Comment: Lawrence spoke to Dr. Raza @ 15:48- [facility] Consulting Provider: MARCO A RAZA Physician Instructions: Reason For Exam: esrd 05/08/19 15:19 Consult to Physician [CONS] Urgent Comment: Dr. Howe spoke to Dr. Doe @ 15:45- [facility] Consulting Provider: SHANA GUNDERSON Physician Instructions: Reason For Exam: fevers line sepsis vs bacteremia 05/08/19 20:16 Consult to Dietitian/Nutrition [CONS] Routine Physician Instructions: Reason For Exam: Reason for Consult: Diet education Primary care physician: COMMUNICATIONS CONSULTANT Hospitalization Condition: Good Pertinent studies: The cultures 1 out of 4 bottles consistent with gram-negative jesica most likely contaminant. Hospital course: Patient 34-year-old history of HIV end-stage renal disease history of epidural abscess presented with a blood culture at the hemodialysis center which showed gram-negative jesica. Patient presented to ED and had 1 out of 4 bottles consistent with gram-negative jesica thought to be contaminant. At no time did patient have any fever here. Normal white count. Patient had ID consult did not require any antibiotics. Stable for discharge after hemodialysis. Hospital course complicated by hypertensive emergency. We'll increase patient's labetalol to 300 mg twice a day. Did much better after hemodialysis. Disposition: - TO HOME OR SELFCARE - Discharge Diagnoses (1) Bacteremia Status: Acute Comment: Patient most likely contaminated no antibiotics needed. We'll follow further treatment and workup for hemodialysis. (2) Uncontrolled hypertension Status: Acute Comment: Increase labetalol to 300 mg twice a day. (3) Hypertensive chronic kidney disease with stage 5 chronic kidney disease or end stage renal disease Status: Chronic (4) Chronic back pain Status: Acute Qualifiers: Back pain location: low back pain Back pain laterality: unspecified Sciatica presence: without sciatica Qualified Code(s): M54.5 - Low back pain; G89.29 - Other chronic pain Comment: 2 units pain meds current pain meds for chronic pain. (5) ESRD on hemodialysis Status: Chronic Core Measure Documentation - Palliative Care Palliative Care/ Comfort Measures: Not Applicable - Core Measures Any of the following diagnoses?: none Exam - Constitutional Vitals: Temp Pulse Resp BP Pulse Ox 98.0 F 104 H 20 164/100 97 05/09/19 21:09 05/09/19 19:07 05/09/19 21:09 05/09/19 21:24 05/09/19 18:51 General appearance: Present: no acute distress, well-nourished - EENT Eyes: Present: PERRL ENT: hearing intact, clear oral mucosa - Neck Neck: Present: supple, normal ROM - Respiratory Respiratory effort: normal Respiratory: bilateral: CTA - Cardiovascular Heart Sounds: Present: S1 & S2. Absent: rub, click - Extremities Extremities: pulses symmetrical, No edema Peripheral Pulses: within normal limits - Abdominal General gastrointestinal: Present: soft, non-tender, non-distended, normal bowel sounds Male genitourinary: Present: normal - Integumentary Integumentary: Present: clear, warm, dry - Musculoskeletal Musculoskeletal: gait normal, strength equal bilaterally - Psychiatric Psychiatric: appropriate mood/affect, intact judgment & insight - Neurologic Neurologic: CNII-XII intact, moves all extremities Plan Activity: no restrictions Weight Bearing Status: Full Weight Bearing Diet: renal Follow up with: PRIMARY CARE, [Primary Care Provider] - 3-5 Days Prescriptions: Acetaminophen [Acetaminophen TAB] 1 tab PO Q8H PRN #10 tablet PRN Reason: Pain MILD(1-3)/Fever >100.5/CHOUDHARY Losartan [Cozaar] 50 mg PO QDAY #30 tablet Lispro Insulin [HumaLOG] 1 dose SUB-Q ACHS PRN #1000 units PRN Reason: Hyperglycemia Labetalol [Labetalol 200mg TAB] 300 mg PO BID #60 tablet Insulin Glargine [Lantus VIAL] 10 units SUB-Q QAMDIAB #1 vial HYDROcodone/APAP 7.5-325 [[place] 7.5-325 mg TAB] 1 each PO Q6HR PRN #10 tablet PRN Reason: Pain , Severe (7-10) amLODIPine [Norvasc] 10 mg PO DAILY #30 tablet Ritonavir [Norvir] 100 mg PO QDAY #10 tab Pantoprazole [Protonix TAB] 20 mg PO QDAY #15 tablet. Metoclopramide [Reglan TAB] 10 mg PO TIDAC #30 tab Ondansetron [Zofran ODT TAB] 4 mg PO Q8HR PRN #20 tab.rapdis PRN Reason: Nausea And Vomiting
[2019-05-10] MEDS ORDERED: NACL 0.9 (PRIMING MACHINE ONLY DIALYSIS) MC ONE (12:45)
--- NOTE | 2019-05-10 13:55 | Progress Note ---
Assessment and Plan Cultures: 05/06/2019 blood culture: One out of 4 bottles positive for diphtheroids 05/08/2019 blood culture: In progress 05/08/2019 blood culture from Vas-Cath: in progress 05/08/2019 urine culture: No growth A/P: 34-year-old male with HIV, ESRD, recently started hemodialysis around January 2019, gastroparesis, chronic back pain, history of lumbar spine epidural abscess requiring laminectomy and treatment with 6 weeks of IV antibiotics back in 2017 at [facility] admitted with: 1) GPR bacteremia: One out of 4 bottles positive for diphtheroids, likely contaminant. No treatment needed. HD cath can remain in place. 2) Acute on chronic back pain: CT abdomen and pelvis, thoracic and lumbar spine without any acute abnormality. He has evidence of prior laminectomy. Does have a history of epidural abscess in 2017 treated with IV antibiotics. Currently, his CRP is low, no suspicion for recurrence. No fever here, no leucocytosis. 3) ESRD on hemodialysis 4) HIV: Compliant with therapy, last viral load in January 2019 was undetectable. CD4 count of 599. Currently, on norvir, darunavir and Juluca once daily, started seeing Dr. Conley. Recs: - no antibiotics needed, no fever and blood cultures have remained negative - continue HIV meds, resume home regimen upon discharge. Discussed with patient that given temporal relation of his nausea, vomiting (and the initiation of PIs) with the change in his meds, he should d/w his HIV regarding other options, there is new data on Genvoya once daily in HD patients Tu Doe MD, FACP [facility] C: [phone] O: [phone] F: [phone] Subjective Date of service: 05/10/19 Principal diagnosis: Gram-positive Road bacteremia, ESRD on HD, HIV, history of epidural abscess Interval history: Patient seen at dialysis. No fever. Had some chills earlier this morning. Also reports nausea and vomiting. Objective - Exam Narrative Exam: Physical Exam: Constitutional: Alert, cooperative. No acute distress Head, Ears, Nose: Normocephalic, atraumatic. External ears, nose normal Eyes: Conjunctivae/corneas clear. No icterus. No ptosis. Neck: Supple, no meningeal signs Oral: dentition fair, no thrush Cardiovascular: S1, S2 normal. Respiratory: Good air entry, clear to auscultation bilaterally GI: Soft, non-tender; bowel sounds normal. No peritoneal signs Musculoskeletal: No pedal edema, no cyanosis. HD cath + c/d/i. Lumbar scar well healed Skin: No rash or abscess. Hem/Lymphatic: No palpable cervical or supraclavicular nodes. No lymphangitis Psych: Mood ok. Affect normal Neurological: Awake, alert, oriented. No gross abnormality - Constitutional Vitals: Vital Signs Temp Pulse Resp BP Pulse Ox 98.0 F 100 H 20 161/104 97 05/09/19 21:09 05/10/19 13:30 05/09/19 21:09 05/10/19 13:30 05/09/19 18:51 Temperature -Last 24 Hours Temperature 98.0 F Temperature 98.4 F - Labs CBC & Chem 7: 05/09/19 06:28 05/09/19 06:28 Labs: Abnormal lab results 05/09/19 05/09/19 05/10/19 Range/Units 15:56 21:17 08:01 POC Glucose 111 H 183 H 151 H (70-105)
[2019-05-10] MEDS: NORVASC PO SCH (15:00)
[2019-05-10] MEDS: COLACE PO SCH (15:00)
[2019-05-10 15:01] VITALS: BP 160/100
[2019-05-10] MEDS: TIVICAY PO SCH (15:01)
[2019-05-10] MEDS: NORVIR PO SCH (15:01)
[2019-05-10] MEDS: PREZISTA PO SCH (15:02)
[2019-05-11] MEDS ORDERED: CATAPRES-TTS PATCH TD SCH (10:00)
== END 2019-05-10 17:55 | disposition home or self-care (01) | DRG 871 ==
LOC: ED 14:31 → 3A 18:28
PROVIDERS: ADMIT Internal Medicine; ATTEND Internal Medicine
PROC: 5A1D70Z Performance of Urinary Filtration, Intermittent, Less than 6 Hours Per Day (ICD-10-PCS; principal; 2019-05-10)
DX: R78.81 Bacteremia (principal); N18.6 End stage renal disease; I12.0 Hypertensive chronic kidney disease with stage 5 chronic kidney disease or end stage renal disease; E87.2 Acidosis; I16.1 Hypertensive emergency; B20 Human immunodeficiency virus [HIV] disease; E11.22 Type 2 diabetes mellitus with diabetic chronic kidney disease; M54.9 Dorsalgia, unspecified; M54.5 Low back pain; G43.909 Migraine, unspecified, not intractable, without status migrainosus; G89.29 Other chronic pain; Z99.2 Dependence on renal dialysis; Z79.4 Long term (current) use of insulin; Z88.0 Allergy status to penicillin; Z79.899 Other long term (current) drug therapy; Z90.49 Acquired absence of other specified parts of digestive tract
CPT/HCPCS: 36415; 71045; 72128; 72131; 74176; 80048; 80053; 81001; 82140; 82962; 83735; 85025; 85610; 85652; 86140; 87040; 87086; 93005; 93010; 96374; 96375; G0378; J0360; J0696; J1170; J1644; J1815; J2405; J2765; J7030

== ENCOUNTER 2019-05-16 15:08 | Emergency (ER) | payer OTHER ==
--- NOTE | 2019-05-16 15:45 | Emergency Department Report ---
Blank Doc - Documentation Documentation: 34-year-old male that presents with abdominal pain with n/v. This initial assessment/diagnostic orders/clinical plan/treatment(s) is/are subject to change based on patient's health status, clinical progression and re- assessment by fellow clinical providers in the ED. Further treatment and workup at subsequent clinical providers discretion. Patient/guardians urged not to elope from the ED as their condition may be serious if not clinically assessed and managed. Initial orders include: 1- Patient sent to [facility] for further evaluation and treatment 2- labs 3- UA
[2019-05-16 17:08] LABS: Basophils # (Auto) 0.1 K/mm3 (0.0-0.1); Basophils % (Auto) 0.8 % (0.0-1.8); Eosinophils # (Auto) 0.1 K/mm3 (0.0-0.4); Eosinophils % (Auto) 0.9 % (0.0-4.3); Hematocrit 33.5 % (35.5-45.6); Hemoglobin 11.1 gm/dl (11.8-15.2); Lymphocytes # (Auto) 1.1 K/mm3 (1.2-5.4); Lymphocytes % (Auto) 17.5 % (13.4-35.0); Mean Corpuscular HGB Conc 33 % (32-34); Mean Corpuscular Volume 83 fl (84-94); Monocytes # (Auto) 0.4 K/mm3 (0.0-0.8); Monocytes % (Auto) 6.7 % (0.0-7.3); Platelet Count 289 K/mm3 (140-440); Red Blood Count 4.03 M/mm3 (3.65-5.03)
[2019-05-16 18:40] LABS: Albumin 3.4 g/dL (3.9-5); Calcium 8.9 mg/dL (8.4-10.2)
[2019-05-16] MEDS ORDERED: NACL 0.9% 1000 ML 1,000 ML IV ONE (20:15)
[2019-05-16] MEDS ORDERED: FLEXERIL PO ONE (20:15)
[2019-05-16] MEDS ORDERED: REGLAN IV ONE (20:15)
--- NOTE | 2019-05-16 21:03 | Emergency Department Report ---
ED Abdominal Pain HPI - General Chief Complaint: Abdominal Pain Stated Complaint: STOMACH PAIN/VOMIT/BACK SPASMS Time Seen by Provider: 05/16/19 15:44 Source: patient Mode of arrival: Ambulatory Limitations: No Limitations - History of Present Illness Initial Comments: Patient is a 34-year-old male who presents emergency room with chronic epigastric abdominal pain for "awhile." He has associated intermittent nausea and vomiting and back spasms. pt is able to tolerate water intake. Has a past medical history of gastroparesis and has not followed up with a GI doctor. States he does have an appointment with his primary care physician next week. He denies any diarrhea, fever, chest pain, shortness of breath, any other symptoms. past medical history of gastroparesis, hypertension, diabetes, HIV, ESRD. He states that he goes to dialysis on Thursday, , Thursday and last went 2 days ago. He states that he also is on his antivirals, he states his CD4 is a normal level, and he states that his viral load is low. he states he does see an infectious disease doctor. - Related Data Previous Rx's Medication Instructions Recorded Last Taken Type hydrALAZINE [Apresoline TAB] 100 mg PO TID #30 tab 03/02/19 04/18/19 Rx 100 mg cloNIDine-TTS PATCH [Catapres-Tts 0.2 mg TD We@1000 #10 patch 04/23/19 Unknown Rx 0.2mg Patch] Acetaminophen [Acetaminophen TAB] 1 tab PO Q8H PRN #10 tablet 05/10/19 Unknown Rx Acetaminophen [Acetaminophen TAB] 650 mg PO Q4H PRN tablet 05/10/19 Unknown Rx Darunavir [Prezista] 800 mg PO QDAY tablet 05/10/19 Unknown Rx HYDROcodone/APAP 7.5-325 [[place] 1 each PO Q6HR PRN #10 tablet 05/10/19 Unknown Rx 7.5-325 mg TAB] Insulin Glargine [Lantus VIAL] 10 units SUB-Q QAMDIAB #1 vial 05/10/19 Unknown Rx Labetalol [Labetalol 200mg TAB] 300 mg PO BID #60 tablet 05/10/19 Unknown Rx Lispro Insulin [HumaLOG] 1 dose SUB-Q ACHS PRN #1000 units 05/10/19 Unknown Rx Losartan [Cozaar] 50 mg PO QDAY #30 tablet 05/10/19 Unknown Rx Metoclopramide [Reglan TAB] 10 mg PO TIDAC #30 tab 05/10/19 Unknown Rx Ondansetron [Zofran ODT TAB] 4 mg PO Q8HR PRN #20 tab.rapdis 05/10/19 Unknown Rx Pantoprazole [Protonix TAB] 20 mg PO QDAY #15 tablet.dr 05/10/19 Unknown Rx Ritonavir [Norvir] 100 mg PO QDAY #10 tab 05/10/19 Unknown Rx amLODIPine [Norvasc] 10 mg PO DAILY #30 tablet 05/10/19 Unknown Rx cloNIDine-TTS PATCH [Catapres-Tts 0.2 mg TD We@1000 patch 05/10/19 Unknown Rx 0.2mg Patch] Baclofen [Lioresal] 10 mg PO QHS PRN #10 tab 05/16/19 Unknown Rx Metoclopramide [Reglan] 10 mg PO TID PRN #10 tab 05/16/19 Unknown Rx Promethazine [Phenergan] 25 mg MD Q8HR PRN #7 supp.rect 05/16/19 Unknown Rx Allergies Allergy/AdvReac Type Severity Reaction Status Date / Time Penicillins Allergy Hives Verified 04/19/19 13:54 tramadol AdvReac Vomiting Verified 04/19/19 13:54 ED Review of Systems ROS: Stated complaint: STOMACH PAIN/VOMIT/BACK SPASMS Other details as noted in HPI Comment: All other systems reviewed and negative ED Past Medical Hx - Past Medical History Previous Medical History?: Yes Hx Hypertension: Yes Hx Heart Attack/AMI: No Hx Diabetes: Yes Hx Liver Disease: No Hx Renal Disease: Yes Hx Headaches / Migraines: Yes (Migraines) Hx Seizures: No Hx Asthma: No Hx COPD: No Hx HIV: Yes Additional medical history: HIV. gastroparesis - Surgical History Past Surgical History?: Yes Hx Cholecystectomy: Yes Additional Surgical History: Dialysis port in right chest. fistula in left arm - Social History Smoking Status: Never Smoker Substance Use Type: None - Medications Home Medications: Home Medications Medication Instructions Recorded Confirmed Last Taken Type hydrALAZINE [Apresoline TAB] 100 mg PO TID #30 tab 03/02/19 05/09/19 04/18/19 Rx 100 mg cloNIDine-TTS PATCH [Catapres-Tts 0.2 mg TD We@1000 #10 patch 04/23/19 05/09/19 Unknown Rx 0.2mg Patch] Acetaminophen [Acetaminophen TAB] 1 tab PO Q8H PRN #10 tablet 05/10/19 Unknown Rx Acetaminophen [Acetaminophen TAB] 650 mg PO Q4H PRN tablet 05/10/19 Unknown Rx Darunavir [Prezista] 800 mg PO QDAY tablet 05/10/19 Unknown Rx HYDROcodone/APAP 7.5-325 [[place] 1 each PO Q6HR PRN #10 tablet 05/10/19 Unknown Rx 7.5-325 mg TAB] Insulin Glargine [Lantus VIAL] 10 units SUB-Q QAMDIAB #1 vial 05/10/19 Unknown Rx Labetalol [Labetalol 200mg TAB] 300 mg PO BID #60 tablet 05/10/19 Unknown Rx Lispro Insulin [HumaLOG] 1 dose SUB-Q ACHS PRN #1000 units 05/10/19 Unknown Rx Losartan [Cozaar] 50 mg PO QDAY #30 tablet 05/10/19 Unknown Rx Metoclopramide [Reglan TAB] 10 mg PO TIDAC #30 tab 05/10/19 Unknown Rx Ondansetron [Zofran ODT TAB] 4 mg PO Q8HR PRN #20 tab.rapdis 05/10/19 Unknown Rx Pantoprazole [Protonix TAB] 20 mg PO QDAY #15 tablet.dr 05/10/19 Unknown Rx Ritonavir [Norvir] 100 mg PO QDAY #10 tab 05/10/19 Unknown Rx amLODIPine [Norvasc] 10 mg PO DAILY #30 tablet 05/10/19 Unknown Rx cloNIDine-TTS PATCH [Catapres-Tts 0.2 mg TD We@1000 patch 05/10/19 Unknown Rx 0.2mg Patch] Baclofen [Lioresal] 10 mg PO QHS PRN #10 tab 05/16/19 Unknown Rx Metoclopramide [Reglan] 10 mg PO TID PRN #10 tab 05/16/19 Unknown Rx Promethazine [Phenergan] 25 mg MD Q8HR PRN #7 supp.rect 05/16/19 Unknown Rx ED Physical Exam - General Limitations: No Limitations General appearance: alert, in no apparent distress - Head Head exam: Present: atraumatic, normocephalic - Eye Eye exam: Present: normal appearance - ENT ENT exam: Present: mucous membranes moist - Respiratory Respiratory exam: Present: normal lung sounds bilaterally. Absent: respiratory distress, wheezes, rales, rhonchi, stridor, chest wall tenderness, accessory muscle use, decreased breath sounds, prolonged expiratory - Cardiovascular Cardiovascular Exam: Present: regular rate, normal rhythm, normal heart sounds, other (right sided chest port is clean, dry, intact, without signs of infection, left upper arm AV fistula is clean, dry, intact without signs of infection with good palpable thrill). Absent: systolic murmur, diastolic murmur, rubs, gallop - GI/Abdominal GI/Abdominal exam: Present: soft, tenderness (mild epigastric), normal bowel sounds. Absent: distended, guarding, rebound, rigid - Back Exam Back exam: Present: normal inspection, full ROM, paraspinal tenderness (mild left lumbar paraspinal muscular TTP, no midline C-spine, T-spine, or L-spine tenderness, no step offs, no deformities). Absent: vertebral tenderness - Neurological Exam Neurological exam: Present: alert, oriented X3 - Psychiatric Psychiatric exam: Present: normal affect, normal mood - Skin Skin exam: Present: warm, dry, intact ED Course Vital Signs 05/16/19 05/17/19 15:45 05:36 Temperature 98.2 F Pulse Rate 62 98 H Respiratory 12 16 Rate Blood Pressure 132/81 Blood Pressure 218/144 [Right] O2 Sat by Pulse 100 98 Oximetry ED Medical Decision Making - Lab Data Result diagrams: 05/16/19 16:35 05/16/19 16:35 Lab Results 05/16/19 05/16/19 Range/Units 16:35 16:35 WBC 6.3 (4.5-11.0) K/mm3 RBC 4.03 (3.65-5.03) M/mm3 Hgb 11.1 L (11.8-15.2) gm/dl Hct 33.5 L (35.5-45.6) % MCV 83 L (84-94) fl MCH 27 L (28-32) pg MCHC 33 (32-34) % RDW 17.0 H (13.2-15.2) % Plt Count 289 (140-440) K/mm3 Lymph % (Auto) 17.5 (13.4-35.0) % Hart % (Auto) 6.7 (0.0-7.3) % Eos % (Auto) 0.9 (0.0-4.3) % Baso % (Auto) 0.8 (0.0-1.8) % Lymph # 1.1 L (1.2-5.4) K/mm3 Hart # 0.4 (0.0-0.8) K/mm3 Eos # 0.1 (0.0-0.4) K/mm3 Baso # 0.1 (0.0-0.1) K/mm3 Seg Neutrophils % 74.1 H (40.0-70.0) % Seg Neutrophils # 4.7 (1.8-7.7) K/mm3 Sodium 134 L (137-145) mmol/L Potassium 3.7 (3.6-5.0) mmol/L Chloride 97.8 L (98-107) mmol/L Carbon Dioxide 21 L (22-30) mmol/L Anion Gap 19 mmol/L BUN 30 H (9-20) mg/dL Creatinine 3.2 H (0.8-1.5) mg/dL Estimated GFR 27 ml/min BUN/Creatinine Ratio 9 % Glucose 233 H (75-100) mg/dL Calcium 8.9 (8.4-10.2) mg/dL Total Bilirubin 0.40 (0.1-1.2) mg/dL AST 29 (5-40) units/L ALT 27 (7-56) units/L Alkaline Phosphatase 100 (35-129) units/L Total Protein 7.5 (6.3-8.2) g/dL Albumin 3.4 L (3.9-5) g/dL Albumin/Globulin Ratio 0.8 % Lipase 43 (13-60) units/L - Medical Decision Making Patient is a 34-year-old male who presents emergency room with chronic epigastric abdominal pain for "awhile." He has associated intermittent nausea and vomiting and back spasms. pt is able to tolerate water intake. Has a past medical history of gastroparesis and has not followed up with a GI doctor. Ozzie gross he does have an appointment with his primary care physician next week. He denies any diarrhea, fever, chest pain, shortness of breath, any other symptoms. past medical history of gastroparesis, hypertension, diabetes, HIV, ESRD. He states that he goes to dialysis on Thursday, , Thursday and last went 2 days ago. He states that he also is on his antivirals, he states his CD4 is a normal level, and he states that his viral load is low. he states he does see an infectious disease doctor. vitals are normal. labs are stable, kidney function at baseline. Patient's discomfort and nausea treated while in the emergency department and improved. pt had no further episodes of nausea or vomiting and was able to tolerate by mouth intake. Patient given prescription for baclofen, Reglan, Phenergan suppositories. advised pt to please take medication as prescribed. Do not drive or operate heavy machinery while taking muscle relaxer. please use ice pack, heating pad, rest, epsom salt bath. increase your fluid intake over the next several days and eat a bland diet. follow up with a GI doctor regarding your chronic abdominal pain and gastroparesis. Follow up with a orthopedic doctor regarding your chronic back pain. It is very important that you follow-up with the specialist for your chronic conditions. also follow up with your infectious disease doctor. return to the emergency room for any new or worsening symptoms. - Differential Diagnosis gastroparesis, pancreatitis, dehydration, PUD, GERD Critical care attestation.: If time is entered above; I have spent that time in minutes in the direct care of this critically ill patient, excluding procedure time. ED Disposition Clinical Impression: Chronic abdominal pain, Gastroparesis Chronic back pain Qualifiers: Back pain location: low back pain Back pain laterality: left Sciatica presence: without sciatica Qualified Code(s): M54.5 - Low back pain Disposition: DC-01 TO HOME OR SELFCARE Is pt being admited?: No Does the pt Need Aspirin: No Condition: Stable Instructions: Abdominal Pain (ED), Chronic Back Pain (ED) Additional Instructions: Please take medication as prescribed. Do not drive or operate heavy machinery while taking muscle relaxer. please use ice pack, heating pad, rest, epsom salt bath. increase your fluid intake over the next several days and eat a bland diet. follow up with a GI doctor regarding your chronic abdominal pain and gastroparesis. Follow up with a orthopedic doctor regarding your chronic back pain. It is very important that you follow-up with the specialist for your chronic conditions. also follow up with your infectious disease doctor. return to the emergency room for any new or worsening symptoms. Prescriptions: Baclofen [Lioresal] 10 mg PO QHS PRN #10 tab PRN Reason: Muscle Spasm Promethazine [Phenergan] 25 mg MD Q8HR PRN #7 supp.rect PRN Reason: Nausea And Vomiting Metoclopramide [Reglan] 10 mg PO TID PRN #10 tab PRN Reason: Nausea And Vomiting Referrals: [facility] [Provider Group] - 2-3 Days [facility] [Provider Group] - 2-3 Days MAIKOL CUELLAR MD [Staff Physician] - 2-3 Days Time of Disposition: 23:20 Print Language: WELSH
[2019-05-16] MEDS: NORCO 5/325 PO ONE ×2 (23:01→23:05)
[2019-05-17 05:37] VITALS: BP 218/144
== END 2019-05-16 23:30 | disposition home or self-care (01) ==
LOC: ED 15:08
DX: E11.43 Type 2 diabetes mellitus with diabetic autonomic (poly)neuropathy (principal); K31.84 Gastroparesis; M54.5 Low back pain; G89.29 Other chronic pain; I10 Essential (primary) hypertension; G43.909 Migraine, unspecified, not intractable, without status migrainosus; Z90.49 Acquired absence of other specified parts of digestive tract; Z88.0 Allergy status to penicillin; Z79.4 Long term (current) use of insulin; Z88.6 Allergy status to analgesic agent
CPT/HCPCS: 36415; 80053; 83690; 85025; 96361; 96374; 99283; J2765; J7030

== ENCOUNTER 2019-06-08 07:37 | Day surgery (SDC) | payer OTHER ==
[~2019-06-08 07:37] MED LIST changes: -ANCEF/STERILE WATER 2 GM/20 ML 2 GM/20 ML SYRINGE IV NR; +MIDAZOLAM 2 MG/2 ML INJ IV NR; -NACL 0.9% 1000 ML 1,000 ML IV SCH; -PEPCID IV NR; +SODIUM CHLORIDE 0.9% 1000 ML 1,000 ML IV SCH
[2019-06-08] MEDS ORDERED: ceFAZolin/Water 2 GM/20 ML 2 GM/20 ML SYRINGE IV NR (08:00)
[2019-06-08] MEDS ORDERED: HEPARIN 10,000 UNITS/10 ML VIAL ONE (08:53)
[2019-06-08] MEDS ORDERED: SODIUM CHLORIDE 0.9% 500 ML 500 ML ONE (08:54)
[2019-06-08] MEDS ORDERED: BUPIVACAINE/PF (0.5%) 5 MG/1 ML 30 ML VIAL INFILTRATI ONE ×2 (08:54→11:17)
[2019-06-08] MEDS ORDERED: LIDOCAINE (1%) 10 MG/1 ML VIAL 20 ML MDV ONE (08:54)
[2019-06-08] MEDS ORDERED: ONDANSETRON 4 MG/2 ML INJ IV PRN (08:58)
--- NOTE | 2019-06-08 09:01 | Anesthesia Day of Surgery ---
Anesthesia Day of Surgery - Day of Surgery Patient Examined: Yes Patient H&P Reviewed: Yes Patient is NPO: Yes
--- NOTE | 2019-06-08 09:05 | Anesthesia Consultation ---
Anesthesia Consult and Med Hx Date of service: 06/08/19 - Airway Anesthetic Teeth Evaluation: Good ROM Head & Neck: Adequate Mental/Hyoid Distance: Adequate Mallampati Class: Class III Intubation Access Assessment: Possibly Difficult - Pre-Operative Health Status ASA Pre-Surgery Classification: ASA3 Proposed Anesthetic Plan: General - Pulmonary Hx Respiratory Symptoms: No Hx Pneumonia: Yes (12/2018; resolved) - Cardiovascular System Hx Hypertension: Yes (ETT last year ok per pt. ) Hx Cardia Arrhythmia: Yes (Tachy) - Central Nervous System Hx Back Pain: Yes Hx Psychiatric Problems: Yes (anxiety/depression/bipolar) - Gastrointestinal Hx Gastroesophageal Reflux Disease: Yes (Gastroparesis) - Endocrine Hx Renal Disease: Yes Hx End Stage Renal Disease: Yes (Last HD yesterday) Hx Non-Insulin Dependent Diabetes: Yes Hx Thyroid Disease: No - Hematic Hx Anemia: Yes - Other Systems Hx Cancer: No Hx Obesity: Yes - Additional Comments Anesthesia Medical History Comments: HIV+. No vision OD and 50% vision OS
[2019-06-08] MEDS ORDERED: PANTOPRAZOLE 40 MG TAB PO NR (09:08)
[2019-06-08] MEDS ORDERED: PROPOFOL 200 MG/20 ML VIAL IV ONE (09:38)
[2019-06-08] MEDS ORDERED: LIDOCAINE MPF (2%) 20 MG/1 ML VIAL 5 ML ONE (09:38)
[2019-06-08] MEDS ORDERED: fentaNYL 100 MCG/2 ML INJ ONE (09:38)
[2019-06-08] MEDS ORDERED: INSULIN LISPRO 100 UNIT/ML SUB-Q NR (10:00)
[2019-06-08] MEDS ORDERED: MIDAZOLAM 2 MG/2 ML INJ IV NR (10:00)
[2019-06-08] MEDS ORDERED: METOCLOPRAMIDE 10 MG/2 ML INJ IV NR (10:00)
[2019-06-08 10:05] LABS: Hematocrit 33.6 % (35.5-45.6); Mean Corpuscular HGB Conc 33 % (32-34); Mean Corpuscular Volume 85 fl (84-94); Platelet Count 234 K/mm3 (140-440); Red Blood Count 3.97 M/mm3 (3.65-5.03); Red Cell Distribution Width 18.9 % (13.2-15.2)
[2019-06-08] MEDS ORDERED: CLINDAMYCIN 600 MG/50 mL 600 MG/50 ML BAG IV NR (10:08)
[2019-06-08 10:25] LABS: Calcium 8.2 mg/dL (8.4-10.2)
[2019-06-08] MEDS ORDERED: PHENYLEPHRINE/NS 1,000 MCG/10 ML SYRINGE (OR USE) IV ONE (10:53)
[2019-06-08] MEDS ORDERED: HEPARIN 10,000 UNITS/10 ML VIAL IR ONE (11:18)
[2019-06-08] MEDS ORDERED: SODIUM CHLORIDE 0.9% IRR 1,500 ML BOTTLE IR ONE (11:19)
[2019-06-08] MEDS ORDERED: SODIUM CHLORIDE 0.9% 500 ML IVPB IRRIGATION ONE (11:19)
--- NOTE | 2019-06-08 13:06 | Short Stay Summary ---
Short Stay Documentation Date of service: 06/08/19 Narrative H&P: See H&P - History H&P: obtained from office - Allergies and Medications Current Medications: Allergies Penicillins Allergy (Verified 06/06/19 18:03) Hives tramadol Adverse Reaction (Verified 06/06/19 18:03) Vomiting Home Medications Medication Instructions Recorded Confirmed Last Taken Type hydrALAZINE [Apresoline TAB] 100 mg PO TID #30 tab 03/02/19 06/08/19 06/08/19 07:00 Rx Acetaminophen [Acetaminophen TAB] 650 mg PO Q4H PRN tablet 05/10/19 06/08/19 06/07/19 07:00 Rx Darunavir [Prezista] 800 mg PO QDAY tablet 05/10/19 06/08/19 06/07/19 08:00 Rx HYDROcodone/APAP 7.5-325 [[place] 1 each PO Q6HR PRN #10 tablet 05/10/19 06/08/19 04/26/19 07:00 Rx 7.5-325 mg TAB] Insulin Glargine [Lantus VIAL] 10 units SUB-Q QAMDIAB #1 vial 05/10/19 06/08/19 06/07/19 19:00 Rx Lispro Insulin [HumaLOG] 1 dose SUB-Q ACHS PRN #1000 units 05/10/19 06/08/19 06/06/19 07:00 Rx Losartan [Cozaar] 50 mg PO QDAY #30 tablet 05/10/19 06/08/19 06/07/19 19:00 Rx Metoclopramide [Reglan TAB] 10 mg PO TIDAC #30 tab 05/10/19 06/08/19 06/07/19 07:00 Rx Ondansetron [Zofran ODT TAB] 4 mg PO Q8HR PRN #20 tab.rapdis 05/10/19 06/08/19 04/26/19 09:00 Rx Pantoprazole [Protonix TAB] 20 mg PO QDAY #15 tablet. 05/10/19 06/08/19 06/07/19 11:00 Rx Ritonavir 100 mg PO QDAY #10 tab 05/10/19 06/08/19 06/07/19 19:00 Rx amLODIPine 10 mg PO DAILY #30 tablet 05/10/19 06/08/19 06/08/19 07:00 Rx cloNIDine-TTS PATCH [Catapres-Tts 0.2 mg TD We@1000 patch 05/10/19 06/08/19 06/07/19 10:00 Rx 0.2mg Patch] labetaloL [Labetalol 200mg TAB] 300 mg PO BID #60 tablet 05/10/19 06/08/19 06/08/19 07:00 Rx Baclofen [Lioresal] 10 mg PO QHS PRN #10 tab 05/16/19 06/08/19 04/26/19 08:00 Rx Active Medications Fentanyl (Sublimaze) 50 mcg IV Q5MIN PRN PRN Reason: Pain , Severe (7-10) Stop: 06/08/19 22:00 Sodium Chloride (Nacl 0.9% 1000 Ml) 1,000 mls @ 42 mls/hr IV DIRECT SHIRA Last Admin: 06/08/19 09:25 Dose: 42 mls/hr Documented by: Clindamycin HCl (Cleocin 600 Mg/50 Ml) 600 mg in 50 mls @ 100 mls/hr IV PREOP NR; Protocol Stop: 06/08/19 23:59 Insulin Human Lispro (Humalog) 10 unit SUB-Q ONCE NR Stop: 06/08/19 16:00 Last Admin: 06/08/19 10:15 Dose: 10 unit Documented by: Metoclopramide HCl (Reglan) 10 mg IV PREOP NR Stop: 06/08/19 14:00 Last Admin: 06/08/19 09:45 Dose: 10 mg Documented by: Midazolam HCl (Versed) 2 mg IV PREOP NR Stop: 06/08/19 23:59 Last Admin: 06/08/19 10:15 Dose: 2 mg Documented by: Pantoprazole Sodium (Protonix) 40 mg PO ONCE NR Stop: 06/08/19 14:00 Last Admin: 06/08/19 09:40 Dose: 40 mg Documented by: - Brief post op/procedure progress note Date of procedure: 06/08/19 Pre-op diagnosis: Complications of Dialysis Access Post-op diagnosis: same Procedure: Revision with Elevation of Left Braciobasilic Arteriovenous Fistula Anesthesia: GETJuve Surgeon: BABAR VENTURA Estimated blood loss: minimal Pathology: none Condition: stable - Disposition Condition at discharge: Good Disposition: DC-01 TO HOME OR SELFCARE Short Stay Discharge Plan Activity: other (No heavy lifting with left arm) Wound: open to air, other (Okay to wash the wound with soap and water but do not soak in water) Follow up with: BABAR VENTURA MD [Staff Physician] - 7 Days Prescriptions: HYDROcodone/APAP 7.5-325 [[place] 7.5/325] 1 each PO Q6HR PRN #40 tablet PRN Reason: Pain
--- NOTE | 2019-06-08 13:16 | Operative Report ---
Operative Report Operative Report: Date of procedure: 06/08/2019 Pre-operative diagnosis: Complications of Dialysis Access Post-operative diagnosis: Same Procedure(s): Revision with Elevation of Left Brachiobasilic AV Fistula Surgeon: Bassem Wade MD Data Security Administrator: None Anesthesia: General Endotracheal Anesthesia EBL: Minimal Counts: Correct Complications: None Condition: Stable Findings: Successful elevation of left brachiobasilic fistula with excellent thrill. Specimen: None Indication: The patient is a 34-year-old male with history of end-stage renal disease with a creation of a left arm brachiobasilic arteriovenous fistula that is in need of revision with elevation. He was given the risks, benefits, and alternative pr ocedures and consented to the procedure. Description of Procedure: The patient was brought to the operating room and laid in supine position after general endotracheal anesthesia was achieved her left arm was prepped and draped in normal sterile fashion. A longitudinal incision was then created on the medial aspect of the arm centered over the fistula extending from the axillary crease to the antecubital crease. Sharp dissection was used to continue the dissection down to the fistula. The fistula was then dissected circumferentially and all side branches were suture ligated and divided. A Stefani-Wick tunneler was then used to tunnel from the distal part of the incision towards the proximal portion of the incision and a lateral and slightly curved direction. The fistula was then marked on the anterior surface, the inflow was controlled with a DeBakey, clamp and the outflow was controlled with bulldog clamps. This vessel was then divided near the arterial inflow and secured to the Stefani-Wick tunneler with 2-0 silk and then pulled retrograde through the tunnel. I flushed the venous outflow with heparinized saline to assure that there was no evidence of twist or kinks. I then performed an end-to-end anastomosis between the proximal and distal ends using two 6-0 Prolenes in running fashion. Prior to completing the anastomosis I flushed the arterial inflow of the fistula to ensure there was no clot or debris. I then completed the anastomosis and removed all clamps allowing flow through the fistula which had an excellent thrill. I achieved hemostasis in the wound with a combination of cautery, quick clot, and Rayne. I then anesthetized the wound with 0.5% Marcaine and closed the wound in 2 layers using a 3-0 Vicryl in running fashion in the deep dermal layer and a 4-0 Monocryl in running fashion in the subcuticular. I then dressed the wound with Dermabond. The patient tolerated the procedure well, all sponge needle and instrument counts were correct, the patient was taken to the recovery area in stable condition.
[2019-06-08] MEDS ORDERED: HEPARIN 10,000 UNIT/1 ML VIAL IV PRN (13:27)
[2019-06-08] MEDS: fentaNYL 100 MCG/2 ML INJ IV PRN ×2 (13:32→13:45)
[2019-06-08] MEDS ORDERED: ONDANSETRON 4 MG/2 ML INJ ONE (13:38)
[2019-06-08] MEDS ORDERED: ONDANSETRON 4 MG/2 ML INJ IV ONE (13:39)
[2019-06-08] MEDS ORDERED: HEPARIN 5,000 UNIT/1 ML VIAL ONE (14:12)
[2019-06-08] MEDS ORDERED: HYDROcodone/ACETAMINOPHEN 7.5-325MG TAB PO PRN (14:19)
[2019-06-08 14:24] VITALS: BP 142/94
--- NOTE | 2019-06-08 15:49 | Post Anesthesia Evaluation ---
- Post Anesthesia Evaluation Patient Participated: Yes Airway Patent: Yes Stable Respiratory Function: Yes Nausea/Vomiting: Yes (improved with IV antiemetics) Temp > 96.8F: Yes Pain Manageable: Yes Adequeate Hydration: Yes Anesthesia Complications: No
== END 2019-06-08 15:00 | disposition home or self-care (01) ==
LOC: OR 07:37
PROVIDERS: ATTEND Surgery Vascular Surgery
DX: T82.898A Other specified complication of vascular prosthetic devices, implants and grafts, initial encounter (principal); I12.0 Hypertensive chronic kidney disease with stage 5 chronic kidney disease or end stage renal disease; E11.22 Type 2 diabetes mellitus with diabetic chronic kidney disease; N18.6 End stage renal disease; G43.909 Migraine, unspecified, not intractable, without status migrainosus; K21.9 Gastro-esophageal reflux disease without esophagitis; F31.9 Bipolar disorder, unspecified; F41.9 Anxiety disorder, unspecified; Z79.4 Long term (current) use of insulin; Z88.0 Allergy status to penicillin; Z88.8 Allergy status to other drugs, medicaments and biological substances; Z79.899 Other long term (current) drug therapy; Z90.49 Acquired absence of other specified parts of digestive tract; Z83.3 Family history of diabetes mellitus; Z98.890 Other specified postprocedural states; Z86.2 Personal history of diseases of the blood and blood-forming organs and certain disorders involving the immune mechanism; Z82.49 Family history of ischemic heart disease and other diseases of the circulatory system; Y83.8 Other surgical procedures as the cause of abnormal reaction of the patient, or of later complication, without mention of misadventure at the time of the procedure; Y92.89 Other specified places as the place of occurrence of the external cause
CPT/HCPCS: 36415; 36832; 80048; 82803; 82962; 85027; C1757; J1644; J2250; J2370; J2405; J2704; J2765; J3010; J7030; J7040; J1815

== ENCOUNTER 2019-06-20 09:11 | Emergency (ER) | payer OTHER ==
[2019-06-20] MEDS ORDERED: MORPHINE 2 MG/1 ML INJ IV ONE (09:43)
--- NOTE | 2019-06-20 09:50 | Emergency Department Report ---
<AJAY AUGUSTINE - Last Filed: 06/20/19 17:54> ED Abdominal Pain HPI - General Chief Complaint: Nausea/Vomiting/Diarrhea Stated Complaint: ABD PAIN Source: patient, EMS Mode of arrival: Stretcher Limitations: No Limitations - History of Present Illness Initial Comments: Nausea,vomiting and abdominal pain MD Complaint: abdominal pain -: days(s) Location: diffuse Radiation: none Severity scale (0 -10): 7 Quality: aching Consistency: constant Improves With: nothing Worsens With: nothing Associated Symptoms: nausea, vomiting, diarrhea - Related Data Previous Rx's Medication Instructions Recorded Last Taken Type hydrALAZINE [Apresoline TAB] 100 mg PO TID #30 tab 03/02/19 06/08/19 07:00 Rx Acetaminophen [Acetaminophen TAB] 650 mg PO Q4H PRN tablet 05/10/19 06/07/19 07:00 Rx Darunavir [Prezista] 800 mg PO QDAY tablet 05/10/19 06/07/19 08:00 Rx HYDROcodone/APAP 7.5-325 [Beacon 1 each PO Q6HR PRN #10 tablet 05/10/19 04/26/19 07:00 Rx 7.5-325 mg TAB] Insulin Glargine [Lantus VIAL] 10 units SUB-Q QAMDIAB #1 vial 05/10/19 06/07/19 19:00 Rx Lispro Insulin [HumaLOG] 1 dose SUB-Q ACHS PRN #1000 units 05/10/19 06/06/19 07:00 Rx Losartan [Cozaar] 50 mg PO QDAY #30 tablet 05/10/19 06/07/19 19:00 Rx Metoclopramide [Reglan TAB] 10 mg PO TIDAC #30 tab 05/10/19 06/07/19 07:00 Rx Ondansetron [Zofran ODT TAB] 4 mg PO Q8HR PRN #20 tab.adeel 05/10/19 04/26/19 09:00 Rx Pantoprazole [Protonix TAB] 20 mg PO QDAY #15 tablet. 05/10/19 06/07/19 11:00 Rx Ritonavir 100 mg PO QDAY #10 tab 05/10/19 06/07/19 19:00 Rx amLODIPine 10 mg PO DAILY #30 tablet 05/10/19 06/08/19 07:00 Rx cloNIDine-TTS PATCH [Catapres-Tts 0.2 mg TD We@1000 patch 05/10/19 06/07/19 10:00 Rx 0.2mg Patch] labetaloL [Labetalol 200mg TAB] 300 mg PO BID #60 tablet 05/10/19 06/08/19 07:00 Rx Baclofen [Lioresal] 10 mg PO QHS PRN #10 tab 05/16/19 04/26/19 08:00 Rx HYDROcodone/APAP 7.5-325 [Beacon 1 each PO Q6HR PRN #40 tablet 06/08/19 Unknown Rx 7.5/325] Allergies Allergy/AdvReac Type Severity Reaction Status Date / Time Penicillins Allergy Hives Verified 06/06/19 18:03 tramadol AdvReac Vomiting Verified 06/06/19 18:03 ED Review of Systems Comment: All other systems reviewed and negative Gastrointestinal: abdominal pain, nausea, vomiting, diarrhea ED Past Medical Hx - Past Medical History Previous Medical History?: Yes Hx Hypertension: Yes (ETT last year ok per pt. ) Hx Diabetes: Yes Hx Renal Disease: Yes Hx Headaches / Migraines: Yes (Migraines) Hx HIV: Yes Additional medical history: HIV. gastroparesis - Surgical History Past Surgical History?: Yes Hx Cholecystectomy: Yes Additional Surgical History: Dialysis port in right chest. fistula in left arm - Social History Smoking Status: Never Smoker - Medications Home Medications: Home Medications Medication Instructions Recorded Confirmed Last Taken Type hydrALAZINE [Apresoline TAB] 100 mg PO TID #30 tab 03/02/19 06/08/19 06/08/19 07:00 Rx Acetaminophen [Acetaminophen TAB] 650 mg PO Q4H PRN tablet 05/10/19 06/08/19 06/07/19 07:00 Rx Darunavir [Prezista] 800 mg PO QDAY tablet 05/10/19 06/08/19 06/07/19 08:00 Rx HYDROcodone/APAP 7.5-325 [[place]acon 1 each PO Q6HR PRN #10 tablet 05/10/19 06/08/19 04/26/19 07:00 Rx 7.5-325 mg TAB] Insulin Glargine [Lantus VIAL] 10 units SUB-Q QAMDIAB #1 vial 05/10/19 06/08/19 06/07/19 19:00 Rx Lispro Insulin [HumaLOG] 1 dose SUB-Q ACHS PRN #1000 units 05/10/19 06/08/19 06/06/19 07:00 Rx Losartan [Cozaar] 50 mg PO QDAY #30 tablet 05/10/19 06/08/19 06/07/19 19:00 Rx Metoclopramide [Reglan TAB] 10 mg PO TIDAC #30 tab 05/10/19 06/08/19 06/07/19 07:00 Rx Ondansetron [Zofran ODT TAB] 4 mg PO Q8HR PRN #20 tab.rapdis 05/10/19 06/08/19 04/26/19 09:00 Rx Pantoprazole [Protonix TAB] 20 mg PO QDAY #15 tablet. 05/10/19 06/08/19 06/07/19 11:00 Rx Ritonavir 100 mg PO QDAY #10 tab 05/10/19 06/08/19 06/07/19 19:00 Rx amLODIPine 10 mg PO DAILY #30 tablet 05/10/19 06/08/19 06/08/19 07:00 Rx cloNIDine-TTS PATCH [Catapres-Tts 0.2 mg TD We@1000 patch 05/10/19 06/08/19 06/07/19 10:00 Rx 0.2mg Patch] labetaloL [Labetalol 200mg TAB] 300 mg PO BID #60 tablet 05/10/19 06/08/19 06/08/19 07:00 Rx Baclofen [Lioresal] 10 mg PO QHS PRN #10 tab 05/16/19 06/08/19 04/26/19 08:00 Rx HYDROcodone/APAP 7.5-325 [[place] 1 each PO Q6HR PRN #40 tablet 06/08/19 Unknown Rx 7.5/325] ED Physical Exam - General Limitations: No Limitations General appearance: alert, in no apparent distress - Head Head exam: Present: atraumatic - Eye Eye exam: Present: normal appearance - ENT ENT exam: Present: mucous membranes dry - Neck Neck exam: Present: normal inspection - Respiratory Respiratory exam: Present: normal lung sounds bilaterally. Absent: respiratory distress - Cardiovascular Cardiovascular Exam: Present: regular rate, normal rhythm, other (right subclavian vas cath with dry dressing intact) - GI/Abdominal GI/Abdominal exam: Present: soft, tenderness, normal bowel sounds. Absent: distended, guarding, rebound, rigid - Rectal Rectal exam: Present: deferred - Extremities Exam Extremities exam: Present: normal inspection. Absent: tenderness - Expanded Upper Extremity Exam Left General: Present: other (left upper arm AV fistual +shrill +bruit) - Back Exam Back exam: Present: normal inspection - Neurological Exam Neurological exam: Present: alert, oriented X3 - Psychiatric Psychiatric exam: Present: normal affect - Skin Skin exam: Present: warm, dry, intact, normal color ED Medical Decision Making - Lab Data Result diagrams: 06/20/19 12:08 06/20/19 12:08 - EKG Data Rate: tachycardia - EKG Data Interpretation: nonspecific ST-T wave cecile, other (prolonged QT interval) - Radiology Data Radiology results: report reviewed Chest X-ray FINDINGS: Support devices: Right IJ permacath is unchanged terminating near the cavoatrial junction. Heart: Within normal limits. Lungs/pleura: No acute air space or interstitial disease. No pneumothorax. Additional findings: None. IMPRESSION: No acute findings. - Medical Decision Making Patient's a 34-year-old male. He comes to this facility complaining of nausea and vomiting started on Thursday. On Thursday he did not go to dialysis as scheduled state he wasn't feeling well. Patient returned to the dialysis center this morning and started dialysis. He was sent to the ER for evaluation of abdominal pain,nausea and vomiting. Patient states he only received a total of 30 minutes of dialysis. Patient received morphine 2 mg IV and 1 tablet of Percocet and Reglan. His abdominal pain symptoms were relieved lab results EKG and chest x-ray was reviewed he has no acute findings. Dr. Peralta clinical review specialist was notified. Lab results EKG results and chest x-ray results were discussed with Dr. Peralta. He agrees that patient can be discharged home and follow-up with dialysis tomorrow. Dr. Howell also agrees with plan of treatment. Patient's currently in no pain will continue Tylenol at home for pain. He is stable and ready for discharge ED Disposition Clinical Impression: Missed dialysis, Hypertensive chronic kidney disease with stage 5 chronic kidney disease or end stage renal disease Disposition: TO HOME OR SELFCARE Is pt being admited?: No Does the pt Need Aspirin: No Condition: Stable Instructions: Acute Nausea and Vomiting (ED) Additional Instructions: Follow up with Animal Husbandman Dr. Peralta Return to the Dialysis center tomorrow for dialysis. Continue with your home medication regime. Take tylenol for pain as directed by package insert. Referrals: [facility] MD DAVID [Primary Care Provider] - 3-5 Days Time of Disposition: 13:44 <IFEANYI HOWELL - Last Filed: 07/10/19 15:15> ED Review of Systems ROS: Stated complaint: ABD PAIN Other details as noted in HPI ED Course Vital Signs 06/20/19 06/20/19 06/20/19 09:16 11:38 11:42 Temperature 98.1 F Pulse Rate 101 H Respiratory 20 12 Rate Blood Pressure 157/89 Blood Pressure 201/106 [Right] O2 Sat by Pulse 97 100 Oximetry ED Medical Decision Making - Lab Data Result diagrams: 06/20/19 12:08 06/20/19 12:08 Critical care attestation.: If time is entered above; I have spent that time in minutes in the direct care of this critically ill patient, excluding procedure time.
[2019-06-20] MEDS ORDERED: METOCLOPRAMIDE 10 MG/2 ML INJ IV ONE (10:31)
[2019-06-20 11:38] VITALS: BP 201/106
[2019-06-20] MEDS ORDERED: oxyCODONE /ACETAMINOPHEN 5-325MG TAB PO PRN (12:13)
--- NOTE | 2019-06-20 12:20 | XRay Report ---
CHEST 2 VIEWS INDICATION: abdominal pain, esrd. COMPARISON: 05/08/2019 FINDINGS: Support devices: Right IJ permacath is unchanged terminating near the cavoatrial junction. Heart: Within normal limits. Lungs/pleura: No acute air space or interstitial disease. No pneumothorax. Additional findings: None. IMPRESSION: No acute findings. Signer Name: Óscar Molina Jr, MD Signed: 06/20/2019 12:15 PM Workstation Name: [id number]
[2019-06-20 12:30] LABS: Basophils % (Auto) 0.4 % (0.0-1.8); Eosinophils % (Auto) 0.6 % (0.0-4.3); Hematocrit 33.2 % (35.5-45.6); Hemoglobin 11.3 gm/dl (11.8-15.2); Lymphocytes % (Auto) 11.5 % (13.4-35.0); Mean Corpuscular HGB Conc 34 % (32-34); Mean Corpuscular Volume 83 fl (84-94); Monocytes # (Auto) 0.3 K/mm3 (0.0-0.8); Monocytes % (Auto) 3.9 % (0.0-7.3); Platelet Count 244 K/mm3 (140-440); Red Blood Count 4.02 M/mm3 (3.65-5.03); Red Cell Distribution Width 16.9 % (13.2-15.2)
[2019-06-20 12:49] LABS: Albumin 3.1 g/dL (3.9-5); Calcium 8.4 mg/dL (8.4-10.2)
== END 2019-06-20 14:03 | disposition home or self-care (01) ==
LOC: ED 09:11
DX: R11.2 Nausea with vomiting, unspecified (principal); E11.9 Type 2 diabetes mellitus without complications; I10 Essential (primary) hypertension; N28.9 Disorder of kidney and ureter, unspecified; G43.909 Migraine, unspecified, not intractable, without status migrainosus; Z21 Asymptomatic human immunodeficiency virus [HIV] infection status; Z91.15 Patient's noncompliance with renal dialysis; Z90.49 Acquired absence of other specified parts of digestive tract; Z98.890 Other specified postprocedural states; Z79.899 Other long term (current) drug therapy; Z88.0 Allergy status to penicillin; Z88.8 Allergy status to other drugs, medicaments and biological substances
CPT/HCPCS: 36415; 71046; 80053; 83690; 85025; 93005; 93010; 96374; 96375; 99284; J2270; J2765

== ENCOUNTER 2019-07-13 10:39 | Day surgery (SDC) | payer OTHER ==
[2019-07-13] MEDS ORDERED: HEPARIN/NS 5000 UNIT/500ML 1,000 ML IR ONE (12:15)
[2019-07-13] MEDS ORDERED: WATER FOR INJ Sterile (PF) 10 ML ONE (12:15)
[2019-07-13] MEDS ORDERED: SODIUM CHLORIDE 0.9% 250ML 250 ML ONE (12:15)
[2019-07-13] MEDS ORDERED: ALTEPLASE 2 MG INJ ONE (12:16)
[2019-07-13] MEDS: fentaNYL 100 MCG/2 ML INJ ONE ×6 (12:45→14:37)
[2019-07-13] MEDS: MIDAZOLAM 2 MG/2 ML INJ ONE ×4 (12:45→14:16)
[2019-07-13] MEDS: LIDOCAINE (2%) 20 MG/1 ML VIAL 20 ML MDV INFILTRATI ONE ×4 (12:46→14:03)
[2019-07-13] MEDS: HEPARIN 10,000 UNITS/10 ML VIAL ONE ×2 (12:50→14:11)
[2019-07-13] MEDS ORDERED: fentaNYL 100 MCG/2 ML INJ ONE ×2 (13:13→13:29)
[2019-07-13] MEDS ORDERED: MIDAZOLAM 2 MG/2 ML INJ ONE (13:13)
[2019-07-13] MEDS ORDERED: HEPARIN/NS 5000 UNIT/500ML 500 ML IR ONE ×2 (14:06→14:25)
[2019-07-13] MEDS ORDERED: HYDROcodone/ACETAMINOPHEN 7.5-325MG TAB PO PRN (15:11)
--- NOTE | 2019-07-13 15:18 | Short Stay Summary ---
Short Stay Documentation Date of service: 07/13/19 Narrative H&P: See H&P - History H&P: obtained from office - Allergies and Medications Current Medications: Allergies Penicillins Allergy (Verified 06/06/19 18:03) Hives tramadol Adverse Reaction (Verified 06/06/19 18:03) Vomiting Home Medications Medication Instructions Recorded Confirmed Last Taken Type hydrALAZINE [Apresoline TAB] 100 mg PO TID #30 tab 03/02/19 07/13/19 07/13/19 Rx 100 mg Acetaminophen [Acetaminophen TAB] 650 mg PO Q4H PRN tablet 05/10/19 07/13/19 06/07/19 07:00 Rx Darunavir [Prezista] 800 mg PO QDAY tablet 05/10/19 06/08/19 07/12/19 Rx 800 mg Insulin Glargine [Lantus VIAL] 10 units SUB-Q QAMDIAB #1 vial 05/10/19 07/13/19 07/11/19 Rx 20 units Lispro Insulin [HumaLOG] 1 dose SUB-Q ACHS PRN #1000 units 05/10/19 07/13/19 07/12/19 Rx 15 units Losartan [Cozaar] 50 mg PO QDAY #30 tablet 05/10/19 07/13/19 07/12/19 Rx 50 mg Metoclopramide [Reglan TAB] 10 mg PO TIDAC #30 tab 05/10/19 07/13/19 07/06/19 Rx 10 mg Ondansetron [Zofran ODT TAB] 4 mg PO Q8HR PRN #20 tab.adeel 05/10/19 07/13/19 07/06/19 Rx 4 mg Pantoprazole [Protonix TAB] 20 mg PO QDAY #15 tablet. 05/10/19 07/13/19 07/12/19 Rx 20 mg Ritonavir 100 mg PO QDAY #10 tab 05/10/19 07/13/19 07/12/19 Rx 100 mg amLODIPine 10 mg PO DAILY #30 tablet 05/10/19 07/13/19 07/13/19 Rx 10 mg cloNIDine-TTS PATCH [Catapres-Tts 0.2 mg TD We@1000 patch 05/10/19 07/13/19 07/13/19 Rx 0.2mg Patch] 0.2mg labetaloL [Labetalol 200mg TAB] 300 mg PO BID #60 tablet 05/10/19 07/13/19 07/13/19 Rx 300 mg Baclofen [Lioresal] 10 mg PO QHS PRN #10 tab 05/16/19 07/13/19 07/12/19 Rx 10 mg Active Medications Acetaminophen/Hydrocodone Bitart (Carmel 7.5/325) 1 each PO Q6H PRN PRN Reason: Pain, Moderate (4-6) - Brief post op/procedure progress note Date of procedure: 07/13/19 Pre-op diagnosis: Complications of Dialysis Access Post-op diagnosis: same Procedure: 1. Ultrasound-Guided Access Left Arm AV Fistula with 7 [place] Sheath Venous 2. Ultrasound-Guided Access Left Arm AV Fistula Was 6 [place] Sheath Arterial 3. Diagnostic Fistulogram with Central Venogram 4. Percutaneous PharmacoMechanical Thrombectomy of Left Arm AV Fistula with 4 mg of TPA, Trertolla Device, and AngioJet Aspiration Catheter 5. Angioplasty Stent of Left Arm AV Fistula with 8 x 40 EverCross Balloon, 7 x 200 EverCross Balloon, 6 x 100 AngioSculpt Balloon, and 8 x 15 Viabahn Stent Graft 6. Ultrasound-Guided Access Left Common Femoral Vein 7. Catheter and Left Brachial Artery 8. Radiologic Supervision with Interpretation Anesthesia: local, other (Monitored Moderate Sedation) Surgeon: BABAR VENTURA Estimated blood loss: minimal Pathology: none Condition: stable - Disposition Condition at discharge: Good Disposition: DC-01 TO HOME OR SELFCARE Short Stay Discharge Plan Activity: other (Do not access fistula until cleared by Vascular Surgeon) Follow up with: BABAR VENTURA MD [Staff Physician] - 14 Days Prescriptions: HYDROcodone/APAP 7.5-325 [Carmel 7.5-325 mg TAB] 1 each PO Q6H PRN #40 tablet PRN Reason: Pain, Moderate (4-6)
--- NOTE | 2019-07-13 15:22 | Operative Report ---
Operative Report Operative Report: Date of Procedure: 07/13/2019 Pre-operative Diagnosis: Complications of Dialysis Access Post-operative Diagnosis: Same Procedure(s): 1. Ultrasound-Guided Access Left Arm AV Fistula with 7 [place] Sheath Venous 2. Ultrasound-Guided Access Left Arm AV Fistula Was 6 [place] Sheath Arterial 3. Diagnostic Fistulogram with Central Venogram 4. Percutaneous PharmacoMechanical Thrombectomy of Left Arm AV Fistula with 4 mg of TPA, Trertolla Device, and AngioJet Aspiration Catheter 5. Angioplasty Stent of Left Arm AV Fistula with 8 x 80 EverCross Balloon, 7 x 200 EverCross Balloon, 6 x 100 AngioSculpt Balloon, and 8 x 15 Viabahn Stent Graft 6. Ultrasound-Guided Access Left Common Femoral Vein 7. Catheter and Left Brachial Artery 8. Radiologic Supervision with Interpretation Surgeon: Bassem Wade M.D. Nuclear Power Reactor Operator: None Anesthesia: 1% Lidocaine/Monitored Moderate Sedation EBL: Minimal Counts: Correct Complications: None Condition: Stable Specimen: None Indication: The patient is a 34-year-old male with a history of end-stage renal disease who had creation of a with subsequent revision and elevation of a left brachiobasilic arteriovenous fistula. He recently underwent fistulogram with angioplasty and required stent graft placement for bleeding from the venous outflow of the fistula secondary to a tie being dislodged from a side branch. He presented with thrombosis of the fistula and now requires possible percutaneous thrombectomy. He was given the risk, benefits, and alternative procedures and consented to the procedure. Angiographic Findings: The fistula was thrombosed throughout with multiple areas of stenosis varying from 50 to 85% stenosis. The previous access sites for his fistulogram remained open with the catheter and wire consistently exiting the fistula through the most proximal access site. After the majority of the thrombus had been aspirated it became evident that the mid body of the fistula was completely disrupted requiring stent graft placement. At the completion of the procedure the fistula was patent with less than 20% residual stenosis, no appreciated residual thrombus, and brisk flow of contrast throughout the fistula. Description of Procedure: The patient was brought to the Bottle Packer and laid in supine position. After a timeout was performed his left arm was prepped and draped in normal sterile fashion. Ultrasound was used to identify the fistula and it was confirmed to be thrombosed. The overlying skin and soft tissue was anesthetized with lidocaine near the arterial anastomosis and micropuncture technique was used with ultrasound guidance to access the fistula towards the venous outflow. A 7 [place] sheath was then placed by Seldinger technique. I advanced a 5 [place] vertebral catheter and a 0.035 floppy Glidewire towards the venous outflow however became obvious that the catheter and wire were exiting the fistula t hrough a previous access site used during his fistulogram. I was eventually able to manipulate the wire and catheter through the true lumen and into the distal fistula through the stent graft into the central venous system which was confirmed by venogram. The central venogram revealed no evidence of flow- limiting stenosis. I slowly pulled the catheter back and laced the fistula with 4 mg of TPA. I will add this to dwell for approximately 10 minutes and then readvanced the wire into the central venous system. I then used an 8 x 80 EverCross Balloon to perform angioplasty of the venous outflow of the fistula with multiple areas of stenosis noted throughout the fistula. I then used the Trertolla Device to morcellate the thrombus, ensuring that I avoided the area of the previous access site. I aspirated some thrombus however I was unable to advance the wire and catheter back into the venous outflow of the fistula despite multiple attempts. At this point I used ultrasound guidance, after anesthetizing the skin with lidocaine, to access the fistula more proximal on the arm than the previous access site where the catheter and wire were exiting the fistula. I then placed a 6 [place] sheath by Seldinger technique. I was able to advance a 5 [place] vertebral catheter and a floppy Glidewire through the fistula and across the arterial anastomosis and into the brachial artery which was confirmed by arteriogram. I performed angioplasty of the arterial inflow of the fistula with a 7 x 200 EverCross Balloon however there were several areas of stenosis with significant waist that I was unable to break. Despite performing the angioplasty I was still unable to advance the wire and catheter from the initial access site towards the venous outflow. I worried that there was a complete disruption of the fistula however since I was able to advance the catheter and wire from the venous outflow to his arterial inflow I felt that accessing the femoral vein and treating the fistula in a retrograde access would be the best option. The patient's left groin was then prepped and draped in normal sterile fashion. Ultrasound was used to identify the left femoral vein and confirm patency. I then used lidocaine to anesthetize the skin and overlying soft tissue. Micropuncture technique was used to access the left common femoral vein using ultrasound guidance. A 5 [place] sheath was then placed by Seldinger technique. I used a 5 [place] Navicross Catheter and a 0.035 Advantage Wire to cannulate the superior vena cava and eventually the left innominate vein. I advanced this to the axillary vein and into the fistula. I was able to advance the wire and catheter into the brachial artery which was confirmed by arteriogram. I exchanged the 5 [place] sheath for a 7 [place] 90 cm destination sheath by Seldinger technique. I then advanced a AngioJet Catheter into the fistula and performed aspiration thrombectomy. After performing the aspiration thrombectomy I readvanced the Navicross Catheter into the fistula and performed a fistulogram confirming that there were 2 large areas that were disrupted in the fistula. Additionally there was approximately 85% residual stenosis in the fistula near the arterial inflow including the anastomosis as well as approximately 75% stenosis near the venous outflow. I exchanged my advantage wire for a 0.018 V18 wire and advanced an 8 x 15 cm Viabahn Stent Graft into position. At this point I removed the 2 previously placed sheaths within the fistula and deployed the stent graft. I postdilated the stent graft with an 8 x 40 EverCross Balloon which adequately covered and sealed the areas of disruption and treated the area of 75% stenosis in the venous outflow. While the balloon was still in place I exchanged the V 18 wire for a 0.014 Sparacore Wire. I then used a 6 x 100 AngioSculpt balloon to perform angioplasty of the area of stenosis at the arterial inflow. I was able to bring the balloon to profile and after angioplasty I advanced the Navicross catheter into the brachial artery and performed an angiogram revealing less than 20% residual stenosis and brisk flow of contrast throughout the fistula without significant residual thrombus. At this point I removed the catheter and then the sheath was pulled and manual pressure was held on the femoral vein to achieve hemostasis. Once hemostasis was achieved a sterile dressing was applied and the patient was transported to the recovery area in stable condition.
[2019-07-13] MEDS ORDERED: hydrALAZINE 100 MG TAB PO ONE (16:00)
[2019-07-13 16:25] VITALS: BP 180/113
== END 2019-07-13 16:36 | disposition home or self-care (01) ==
LOC: CATHLABREC 10:39
PROVIDERS: ATTEND Surgery Vascular Surgery
DX: T82.868A Thrombosis due to vascular prosthetic devices, implants and grafts, initial encounter (principal); I12.0 Hypertensive chronic kidney disease with stage 5 chronic kidney disease or end stage renal disease; E11.22 Type 2 diabetes mellitus with diabetic chronic kidney disease; N18.6 End stage renal disease; B20 Human immunodeficiency virus [HIV] disease; G43.909 Migraine, unspecified, not intractable, without status migrainosus; I42.9 Cardiomyopathy, unspecified; K21.9 Gastro-esophageal reflux disease without esophagitis; E66.9 Obesity, unspecified; F31.9 Bipolar disorder, unspecified; F41.9 Anxiety disorder, unspecified; Z88.0 Allergy status to penicillin; Z79.899 Other long term (current) drug therapy; Z79.4 Long term (current) use of insulin; Z87.891 Personal history of nicotine dependence; Z90.49 Acquired absence of other specified parts of digestive tract; Z68.39 Body mass index [BMI] 39.0-39.9, adult; Z99.2 Dependence on renal dialysis; Z83.3 Family history of diabetes mellitus; Z82.49 Family history of ischemic heart disease and other diseases of the circulatory system; Z86.2 Personal history of diseases of the blood and blood-forming organs and certain disorders involving the immune mechanism; Z88.8 Allergy status to other drugs, medicaments and biological substances
CPT/HCPCS: 36415; 36906; 82962; 84132; 99156; 99157; C1725; C1751; C1757; C1769; C1874; C1887; C1894; J1644; J2250; J2997; J3010; J7050; Q9967

== ENCOUNTER 2021-01-04 02:33 | Inpatient (IN) | payer OTHER ==
--- NOTE | 2021-01-04 03:02 | Emergency Department Report ---
HPI - General Time Seen by Provider: 01/04/21 02:39 - HPI HPI: Room 23 The patient is a 35-year-old male present with a chief complaint of syncope. Patient states his evening he went to the bathroom and had a bowel movement and then stood up to wash his hands and had another syncopal episode. The patient states she then crawled to call 911. Of note approximate 1 month ago patient states she had 2 similar episodes where he lost consciousness and came to this hospital where he was admitted and worked up and eventually discharged. His syncope was attributed to him being in DKA. Patient states he been compliant with all of his medications. The patient states he again had numbness in the top portion of his right foot like he had a month ago with his first syncopal ep isodes. Patient states for the past 2 weeks he has had intermittent shortness of breath and palpitations. For the past 2 to 3 days the patient states he has had a cough that has been nonproductive. Patient denies history of fever. ED Past Medical Hx - Past Medical History Hx Hypertension: Yes Hx Diabetes: Yes Hx Renal Disease: Yes (T, Th, Sat) Hx Headaches / Migraines: Yes (Migraines) Hx HIV: Yes Additional medical history: HIV (on medication, unknown last CD4 count). gastroparesis - Surgical History Hx Cholecystectomy: Yes Additional Surgical History: Dialysis port in right chest. fistula in left arm - Family History Family history: no significant - Social History Smoking Status: Former Smoker (None x10 years) Substance Use Type: None (Denies illicit drug use) - Medications Home Medications: Home Medications Medication Instructions Recorded Confirmed Last Taken Type Acetaminophen [Acetaminophen TAB] 650 mg PO Q4H PRN tablet 05/10/19 11/19/20 06/07/19 07:00 Rx Darunavir [Prezista] 800 mg PO QDAY tablet 05/10/19 11/19/20 11/18/20 Rx Ritonavir 100 mg PO QDAY #10 tab 05/10/19 11/19/20 11/18/20 Rx Dolutegravir/Rilpivirine [[place] 1 tab PO DAILY 11/19/20 11/19/20 11/18/20 History 50-25 mg Tablet] Ferric Citrate (Nf) [Auryxia] 1 tab PO TID 11/19/20 11/19/20 11/18/20 History Baclofen [Lioresal] 10 mg PO QHS PRN #10 tablet 11/23/20 Unknown Rx HYDROcodone/APAP 7.5-325 [[place] 1 each PO Q6H PRN #8 tablet 11/23/20 Unknown Rx 7.5-325 mg TAB] Insulin NPH/Regular [NovoLIN 70/30] 30 unit SUB-Q BIDDIAB 30 Days 11/23/20 Unknown Rx units Losartan [Cozaar] 50 mg PO QDAY #30 tablet 11/23/20 Unknown Rx NIFEdipine XL [Procardia Xl] 60 mg PO QDAY #30 tablet 11/23/20 Unknown Rx cloNIDine-TTS PATCH [Catapres-Tts 0.2 mg TD We@1000 #4 patch 11/23/20 Unknown Rx 0.2mg Patch] hydrALAZINE [Apresoline TAB] 100 mg PO TID #30 tab 11/23/20 Unknown Rx labetaloL [Labetalol 100mg TAB] 300 mg PO BID #60 tablet 11/23/20 Unknown Rx ED Review of Systems ROS: Stated complaint: HTN Other details as noted in HPI Constitutional: denies: fever Eyes: denies: eye pain ENT: denies: throat pain Respiratory: cough, shortness of breath Cardiovascular: palpitations Endocrine: no symptoms reported Gastrointestinal: denies: abdominal pain Genitourinary: denies: dysuria Musculoskeletal: denies: back pain Neurological: paresthesias Physical Exam - Physical Exam Physical Exam: GENERAL: The patient is well-developed well-nourished male lying on stretcher not appearing to be in acute distress. [] HEENT: Normocephalic. Atraumatic. Extraocular motions are intact. Patient has moist mucous membranes. NECK: Supple. Trachea midline CHEST/LUNGS: Clear to auscultation. There is no respiratory distress noted. HEART/CARDIOVASCULAR: Regular. There is no tachycardia. There is no gallop rub or murmur. 2+ right DP ABDOMEN: Abdomen is soft, nontender. Patient has normal bowel sounds. There is no abdominal distention. SKIN: There is no rash. There is no edema. There is no diaphoresis. NEURO: The patient is awake, alert, and oriented. The patient is cooperative. The patient has no focal neurologic deficits. The patient has normal speech. Cranial nerves II through XII grossly intact. Moves all extremities well. GCS 15 MUSCULOSKELETAL: There is no evidence of acute injury. ED Medical Decision Making - Lab Data Result diagrams: 01/04/21 03:23 01/04/21 03:23 Laboratory Tests 01/04/21 01/04/21 01/04/21 03:23 03:23 03:23 WBC 8.5 RBC 3.57 L Hgb 11.7 L Hct 33.4 L MCV 94 MCH 33 H MCHC 35 H RDW 14.2 Plt Count 208 Lymph % (Auto) 14.3 [place] % (Auto) 8.4 H Eos % (Auto) 2.1 Baso % (Auto) 0.7 Lymph # (Auto) 1.2 [place] # (Auto) 0.7 Eos # (Auto) 0.2 Baso # (Auto) 0.1 Seg Neutrophils % 74.5 H Seg Neutrophils # 6.4 PT 13.0 INR 0.92 APTT 29.9 D-Dimer 501.95 H VBG pH Sodium 136 L Potassium 3.5 L Chloride 94.6 L Carbon Dioxide 28 Anion Gap 17 BUN 30 H Creatinine 5.1 H Estimated GFR 16 BUN/Creatinine Ratio 6 Glucose 192 H Calcium 9.3 Magnesium 2.50 H Total Bilirubin 0.50 AST 13 ALT 10 Alkaline Phosphatase 105 Total Creatine Kinase 94 CK-MB (CK-2) 5.0 H CK-MB (CK-2) Rel Index 5.3 H Troponin T 0.266 H* Total Protein 7.3 Albumin 3.9 Albumin/Globulin Ratio 1.1 Triglycerides 210 H Cholesterol 138 LDL Cholesterol Direct 73 HDL Cholesterol 35 L Cholesterol/HDL Ratio 3.94 TSH Free T4 Plasma/Serum Alcohol 01/04/21 01/04/21 01/04/21 03:23 03:23 03:23 WBC RBC Hgb Hct MCV MCH MCHC RDW Plt Count Lymph % (Auto) [place] % (Auto) Eos % (Auto) Baso % (Auto) Lymph # (Auto) [place] # (Auto) Eos # (Auto) Baso # (Auto) Seg Neutrophils % Seg Neutrophils # PT INR APTT D-Dimer VBG pH 7.401 Sodium Potassium Chloride Carbon Dioxide Anion Gap BUN Creatinine Estimated GFR BUN/Creatinine Ratio Glucose Calcium Magnesium Total Bilirubin AST ALT Alkaline Phosphatase Total Creatine Kinase CK-MB (CK-2) CK-MB (CK-2) Rel Index Troponin T Total Protein Albumin Albumin/Globulin Ratio Triglycerides Cholesterol LDL Cholesterol Direct HDL Cholesterol Cholesterol/HDL Ratio TSH 1.530 Free T4 1.56 H Plasma/Serum Alcohol < 0.01 - EKG Data -: EKG Interpreted by Me EKG shows normal: sinus rhythm Rate: normal - EKG Data When compared to previous EKG there are: no significant change Interpretation: unchanged when compared t (11/18/2020) - Radiology Data Radiology results: pending (VQ scan), report reviewed (CT head, chest x-ray), image reviewed (CT head, chest x-ray, lumbar spine x-ray) interpreted by me: Chest x-ray-no focal infiltrates, no pneumothorax. No foreign body seen Lumbar spine x-ray-no acute fracture [facility] [address] [place] [address] Cat Scan Report Signed Patient: COLEMAN COLE III MR# : [id number] : 1985 Acct:[id number] Age/Sex: 35 / M ADM Date: 01/04/21 Loc: ED Attending Dr: Ordering Physician: PERLA LANE MD Date of Service: 01/04/21 Procedure(s): CT head/brain wo con Accession Number(s): [id number] cc: PERLA LANE MD CT head/brain wo con INDICATION / CLINICAL INFORMATION: Syncope. TECHNIQUE: Axial CT imaging of brain was obtained without contrast. Coronal and sagittal reformatted imaging obtained and reviewed. All CT scans at this location are performed using CT dose reduction for ALARA by means of automated exposure control. COMPARISON: Prior brain MRI 11/19/2020 FINDINGS: No intracranial hemorrhage, mass, or midline shift is present. No extra-axial fluid collection or suggestion of acute territorial infarction. Ventricular system and basilar cisterns are unremarkable. Visualized paranasal sinuses and mastoid air cells are well aerated and clear. No calvarial abnormality identified. IMPRESSION: 1. No acute intracranial abnormality. Signer Name: Maria Teresa Lui MD Signed: 01/04/2021 3:38 AM Workstation Name: [id number] Transcribed By: Dictated By: Maria Teresa Lui MD Electronically Authenticated By: Maria Teresa Lui MD Signed Date/Time: 01/04/21337 DD/ 5 TD/TT: Print Cancel [facility] [address] [place] [address] XRay Report Signed Patient: COLEMAN COLE III MR# : [id number] : [birth year] Acct:[id number] Age/Sex: 35 / M ADM Date: 01/04/21 Loc: ED Attending Dr: Ordering Physician: PERLA LANE MD Date of Service: 01/04/21 Procedure(s): XR chest 1V ap Accession Number(s): [id number] cc: PERLA LANE MD Fluoro Time In Minutes: CHEST 1 VIEW INDICATION / CLINICAL INFORMATION: Shortness of breath, syncope. COMPARISON: 11/18/2020 FINDINGS: SUPPORT DEVICES: None. HEART / MEDIASTINUM: No significant abnormality. LUNGS / PLEURA: Mild pulmonary vascular congestion. Otherwise, the lungs are grossly clear. No pneumothorax. ADDITIONAL FINDINGS: No significant additional findings. IMPRESSION: 1. Mild pulmonary vascular congestion. Signer Name: Maria Teresa Lui MD Signed: 01/04/2021 4:34 AM Workstation Name: [id number] Transcribed By: JR Dictated By: Maria Teresa Lui MD Electronically Authenticated By: Maria Teresa Lui MD Signed Date/Time: 01/04/21433 DD/ 2 TD/TT: Print - Differential Diagnosis Syncope, dysrhythmia, PE, DKA, vasovagal syncope, orthostasis Critical care attestation.: If time is entered above; I have spent that time in minutes in the direct care of this critically ill patient, excluding procedure time. ED Disposition Clinical Impression: Syncope, Elevated troponin, Lumbar contusion Disposition: OP ADMIT IP TO THIS HOSP Is pt being admited?: Yes Does the pt Need Aspirin: Yes Condition: Fair Instructions: Syncope (ED) Referrals: PRIMARY CARE, [Primary Care Provider] - 3-5 Days Time of Disposition: 05:02 (Hospitalist paged (Dr Pickard))
[2021-01-04] MEDS ORDERED: cloNIDine 0.2 MG TAB PO ONE (03:05)
[2021-01-04] MEDS ORDERED: ONDANSETRON 4 MG/2 ML INJ ONE (03:21)
[2021-01-04] MEDS ORDERED: ONDANSETRON 4 MG/2 ML INJ IV ONE (03:25)
[2021-01-04 03:40] LABS: Basophils # (Auto) 0.1 K/mm3 (0.0-0.1); Basophils % (Auto) 0.7 % (0.0-1.8); Eosinophils # (Auto) 0.2 K/mm3 (0.0-0.4); Eosinophils % (Auto) 2.1 % (0.0-4.3); Hematocrit 33.4 % (35.5-45.6); Hemoglobin 11.7 gm/dl (11.8-15.2); Lymphocytes # (Auto) 1.2 K/mm3 (1.2-5.4); Lymphocytes % (Auto) 14.3 % (13.4-35.0); Mean Corpuscular HGB Conc 35 % (32-34); Mean Corpuscular Volume 94 fl (84-94); Monocytes # (Auto) 0.7 K/mm3 (0.0-0.8); Monocytes % (Auto) 8.4 % (0.0-7.3); Platelet Count 208 K/mm3 (140-440); Red Blood Count 3.57 M/mm3 (3.65-5.03); Red Cell Distribution Width 14.2 % (13.2-15.2)
--- NOTE | 2021-01-04 03:42 | Cat Scan Report ---
CT head/brain wo con INDICATION / CLINICAL INFORMATION: Syncope. TECHNIQUE: Axial CT imaging of brain was obtained without contrast. Coronal and sagittal reformatted imaging obt ained and reviewed. All CT scans at this location are performed using CT dose reduction for ALARA by means of automated exposure control. COMPARISON: Prior brain MRI 11/19/2020 FINDINGS: No intracranial hemorrhage, mass, or midline shift is present. No extra-axial fluid collection or sug gestion of acute territorial infarction. Ventricular system and basilar cisterns are unremarkable. Visualized paranasal sinuses and mastoid air cells are well aerated and clear. No calvarial abnormali ty identified. IMPRESSION: 1. No acute intracranial abnormality. Signer Name: Maria Teresa Lui MD Signed: 01/04/2021 3:38 AM Workstation Name: [id number]
[2021-01-04 03:50] LABS: INR 0.92 (0.87-1.13)
[2021-01-04 03:51] LABS: Partial Thromboplastin Time 29.9 Sec. (24.2-36.6)
[2021-01-04 04:05] LABS: Albumin 3.9 g/dL (3.9-5); Calcium 9.3 mg/dL (8.4-10.2)
[2021-01-04 04:15] LABS: Free T4 (Free Thyroxine) 1.56 ng/dL (0.76-1.46)
[2021-01-04] MEDS ORDERED: HYDROcodone/ACETAMINOPHEN 5-325 MG TAB PO ONE (04:28)
[2021-01-04 04:33] LABS: Chol/HDL Ratio 3.94 %
--- NOTE | 2021-01-04 04:39 | XRay Report ---
CHEST 1 VIEW INDICATION / CLINICAL INFORMATION: Shortness of breath, syncope. COMPARISON: 11/18/2020 FINDINGS: SUPPORT DEVICES: None. HEART / MEDIASTINUM: No significant abnormality. LUNGS / PLEURA: Mild pulmonary vascular congestion. Otherwise, the lungs are grossly clear. No pneumo thorax. ADDITIONAL FINDINGS: No significant additional findings. IMPRESSION: 1. Mild pulmonary vascular congestion. Signer Name: Maria Teresa Lui MD Signed: 01/04/2021 4:34 AM Workstation Name: [id number]
[2021-01-04] MEDS ORDERED: BACLOFEN 10 MG TAB PO PRN (05:09)
[2021-01-04] MEDS ORDERED: ACETAMINOPHEN 325 MG TAB PO PRN (05:25)
[2021-01-04] MEDS ORDERED: ALBUTEROL 2.5 MG/3 ML NEBU IH PRN (05:25)
--- NOTE | 2021-01-04 05:30 | History and Physical Report ---
History of Present Illness Date of examination: 01/04/21 Date of admission: 01/04/2021 Chief complaint: syncope History of present illness: 35-year-old male with history of HIV, uncontrolled hyper, insulin-dependent diabetes, migraines, gastroparesis, chronic pain, ESRD on HD who presents to [facility] ED with complaints of syncopal episode. Patient states he was sitting on the commode, had a bowel movement, and then stood up to wash his hands and had a syncopal episode. He was unsure how long he was unconscious. Denies head injury or trauma, but complains of back pain due to fall. He called 911 and he was transported to our facility for further evaluation and treatment. Additionally he complains of intermittent shortness of breath and palpitations x2 weeks. His dyspnea and palpitations are relieved with rest and aggravated with exertion. Since he has new complaint of dyspnea and palpitations, EKG unrevealing however will consult cardiology ([facility]) for further evaluation. Review of medical record shows patient was admitted in October with similar complaints of syncopal episodes. He complained of prodromal. Of right leg numbness followed by syncopal episode. At the time patient was found to be in DKA and it was thought that syncopal episodes were related to DKA. Imaging studies during admission were all negative. He was seen by cardiology with changes made to antihypertensive meds for optimization of BP. Denies nausea, vomiting, fever, headache, alterations in vision, abdominal pain, hematuria, melena, hematochezia, IV drug use, illicit drug use, smoking, recent stress/trauma, or recent sick contacts Past History Past Medical History: diabetes, dialysis (//), ESRD, HIV/AIDS, hypertension, other (Migraines, gastroparesis, chronic pain) Past Surgical History: cholecystectomy, Other (Dialysis port in right chest. fistula in left arm) Social history: Lives alone, full code. denies: smoking, alcohol abuse, prescription drug abuse, IV drug use Family history: no significant family history Medications and Allergies Allergies Allergy/AdvReac Type Severity Reaction Status Date / Time Penicillins Allergy Hives Verified 06/06/19 18:03 tramadol AdvReac Vomiting Verified 06/06/19 18:03 Home Medications Medication Instructions Recorded Confirmed Last Taken Type Acetaminophen [Acetaminophen TAB] 650 mg PO Q4H PRN tablet 05/10/19 11/19/20 06/07/19 07:00 Rx Darunavir [Prezista] 800 mg PO QDAY tablet 05/10/19 11/19/20 11/18/20 Rx Ritonavir 100 mg PO QDAY #10 tab 05/10/19 11/19/20 11/18/20 Rx Dolutegravir/Rilpivirine [[place] 1 tab PO DAILY 11/19/20 11/19/20 11/18/20 History 50-25 mg Tablet] Ferric Citrate (Nf) [Auryxia] 1 tab PO TID 11/19/20 11/19/20 11/18/20 History Baclofen [Lioresal] 10 mg PO QHS PRN #10 tablet 11/23/20 Unknown Rx HYDROcodone/APAP 7.5-325 [[place] 1 each PO Q6H PRN #8 tablet 11/23/20 Unknown Rx 7.5-325 mg TAB] Insulin NPH/Regular [NovoLIN 70/30] 30 unit SUB-Q BIDDIAB 30 Days 11/23/20 Unknown Rx units Losartan [Cozaar] 50 mg PO QDAY #30 tablet 11/23/20 Unknown Rx NIFEdipine XL [Procardia Xl] 60 mg PO QDAY #30 tablet 11/23/20 Unknown Rx cloNIDine-TTS PATCH [Catapres-Tts 0.2 mg TD We@1000 #4 patch 11/23/20 Unknown Rx 0.2mg Patch] hydrALAZINE [Apresoline TAB] 100 mg PO TID #30 tab 11/23/20 Unknown Rx labetaloL [Labetalol 100mg TAB] 300 mg PO BID #60 tablet 11/23/20 Unknown Rx Active Meds: Active Medications Acetaminophen (Acetaminophen 325 Mg Tab) 650 mg PO Q4H PRN PRN Reason: Pain MILD(1-3)/Fever >100.5/CHOUDHARY Albuterol (Albuterol 2.5 Mg/3 Ml Nebu) 2.5 mg IH Q3HRT PRN PRN Reason: Shortness Of Breath Baclofen (Baclofen 10 Mg Tab) 10 mg PO QHS PRN PRN Reason: Muscle Spasm Clonidine HCl (Clonidine Tts 0.2 Mg/24 Hr Patch) 0.2 mg TD We@1000 SHIRA Darunavir (Darunavir 800 Mg Tab) 800 mg PO QDAY SHIRA Docusate Sodium (Docusate Sodium 100 Mg Cap) 100 mg PO BID SHIRA Hydralazine HCl (Hydralazine 100 Mg Tab) 100 mg PO TID SHIRA Insulin Glargine (Insulin Glargine 100 Units/Ml) 10 units SUB-Q QAMDIAB SHIRA Insulin Human Lispro (Insulin Lispro 100 Unit/Ml) 0 unit SUB-Q ACHS SHIRA; Protocol Miscellaneous Medication (Dolutegravir/Rilpivirine [[place] 50-25 Mg Tablet]) 1 tab PO DAILY SHIRA Nifedipine (Nifedipine Xl 60 Mg Tab) 60 mg PO QDAY SHIRA Ondansetron HCl (Ondansetron 4 Mg/2 Ml Inj) 4 mg IV Q6H PRN PRN Reason: Nausea And Vomiting Oxycodone/Acetaminophen (Oxycodone /Acetaminophen 5-325mg Tab) 1 tab PO Q6H PRN PRN Reason: Pain, Moderate (4-6) Ritonavir (Ritonavir 100 Mg Tab) 100 mg PO QDAY SHIRA Sodium Chloride (Sodium Chloride 0.9% 10 Ml Flush Syringe) 10 ml IV BID SHIRA Sodium Chloride (Sodium Chloride 0.9% 10 Ml Flush Syringe) 10 ml IV PRN PRN PRN Reason: LINE FLUSH Review of Systems All systems: negative (As noted in HPI) Exam - Physical Exam Narrative exam: Physical exam General appearance: Present: No acute distress, alert and oriented 3, obese, adult male - EENT Eyes: Present: PERRL, EOM intact ENT: hearing intact, normal dentition - Neck Neck: Present: supple, normal ROM - Respiratory Respiratory effort: Non-labored Respiratory: Clear throughout - Cardiovascular Heart rate: 106 (bpm) Rhythm: Sinus tachycardia Heart Sounds: Present: S1 & S2. Absent: rub, click - Extremities Extremities: no ischemia, pulses intact, left upper arm AV fistula, - Peripheral Assessment Peripheral Pulses: within normal limits - Abdominal General gastrointestinal: Obese, soft, non-tender, normal bowel sounds - Integumentary Integumentary: Present: warm, dry - Musculoskeletal Musculoskeletal: Able to move all extremities, generalized weakness bilateral lower extremities, able to move against gravity on able to move against resistance -Neurological Neurological: CN II-XII intact - Psychiatric Psychiatric: cooperative - Constitutional Vitals: Temp Pulse Resp BP Pulse Ox 98.7 F 94 H 21 192/113 97 01/04/21 02:52 01/04/21 04:52 01/04/21 04:52 01/04/21 04:52 01/04/21 04:52 HEART Score - HEART Score Troponin: Troponin T 0.266 ng/mL (0.00-0.029) H* 01/04/21 03:23 Results - Labs CBC & Chem 7: 01/04/21 03:23 01/04/21 03:23 Labs: Laboratory Last Values WBC 8.5 K/mm3 (4.5-11.0) 01/04/21 03:23 RBC 3.57 M/mm3 (3.65-5.03) L 01/04/21 03:23 Hgb 11.7 gm/dl (11.8-15.2) L 01/04/21 03:23 Hct 33.4 % (35.5-45.6) L 01/04/21 03:23 MCV 94 fl (84-94) 01/04/21 03:23 MCH 33 pg (28-32) H 01/04/21 03:23 MCHC 35 % (32-34) H 01/04/21 03:23 RDW 14.2 % (13.2-15.2) 01/04/21 03:23 Plt Count 208 K/mm3 (140-440) 01/04/21 03:23 Lymph % (Auto) 14.3 % (13.4-35.0) 01/04/21 03:23 [place] % (Auto) 8.4 % (0.0-7.3) H 01/04/21 03:23 Eos % (Auto) 2.1 % (0.0-4.3) 01/04/21 03:23 Baso % (Auto) 0.7 % (0.0-1.8) 01/04/21 03:23 Lymph # (Auto) 1.2 K/mm3 (1.2-5.4) 01/04/21 03:23 [place] # (Auto) 0.7 K/mm3 (0.0-0.8) 01/04/21 03:23 Eos # (Auto) 0.2 K/mm3 (0.0-0.4) 01/04/21 03:23 Baso # (Auto) 0.1 K/mm3 (0.0-0.1) 01/04/21 03:23 Seg Neutrophils % 74.5 % (40.0-70.0) H 01/04/21 03:23 Seg Neutrophils # 6.4 K/mm3 (1.8-7.7) 01/04/21 03:23 PT 13.0 Sec. (12.2-14.9) 01/04/21 03:23 INR 0.92 (0.87-1.13) 01/04/21 03:23 APTT 29.9 Sec. (24.2-36.6) 01/04/21 03:23 D-Dimer 501.95 ng/mlDDU (0-234) H 01/04/21 03:23 VBG pH 7.401 (7.320-7.420) 01/04/21 03:23 Sodium 136 mmol/L (137-145) L 01/04/21 03:23 Potassium 3.5 mmol/L (3.6-5.0) L 01/04/21 03:23 Chloride 94.6 mmol/L (98-107) L 01/04/21 03:23 Carbon Dioxide 28 mmol/L (22-30) 01/04/21 03:23 Anion Gap 17 mmol/L 01/04/21 03:23 BUN 30 mg/dL (9-20) H 01/04/21 03:23 Creatinine 5.1 mg/dL (0.8-1.3) H 01/04/21 03:23 Estimated GFR 16 ml/min 01/04/21 03:23 BUN/Creatinine Ratio 6 % 01/04/21 03:23 Glucose 192 mg/dL (75-100) H 01/04/21 03:23 Calcium 9.3 mg/dL (8.4-10.2) 01/04/21 03:23 Magnesium 2.50 mg/dL (1.7-2.3) H 01/04/21 03:23 Total Bilirubin 0.50 mg/dL (0.1-1.2) 01/04/21 03:23 AST 13 units/L (5-40) 01/04/21 03:23 ALT 10 units/L (7-56) 01/04/21 03:23 Alkaline Phosphatase 105 units/L (35-129) 01/04/21 03:23 Total Creatine Kinase 94 units/L (55-170) 01/04/21 03:23 CK-MB (CK-2) 5.0 ng/mL (0.0-4.0) H 01/04/21 03:23 CK-MB (CK-2) Rel Index 5.3 (0-4) H 01/04/21 03:23 Troponin T 0.266 ng/mL (0.00-0.029) H* 01/04/21 03:23 Total Protein 7.3 g/dL (6.3-8.2) 01/04/21 03:23 Albumin 3.9 g/dL (3.9-5) 01/04/21 03:23 Albumin/Globulin Ratio 1.1 % 01/04/21 03:23 Triglycerides 210 mg/dL (2-149) H 01/04/21 03:23 Cholesterol 138 mg/dL (50-199) 01/04/21 03:23 LDL Cholesterol Direct 73 mg/dL (50-130) 01/04/21 03:23 HDL Cholesterol 35 mg/dL (40-59) L 01/04/21 03:23 Cholesterol/HDL Ratio 3.94 % 01/04/21 03:23 TSH 1.530 mlU/mL (0.270-4.200) 01/04/21 03:23 Free T4 1.56 ng/dL (0.76-1.46) H 01/04/21 03:23 Plasma/Serum Alcohol < 0.01 % (0-0.07) 01/04/21 03:23 - Diagnostic Impressions Diagnostic Impressions: 01/04/21 CT head: FINDINGS: No intracranial hemorrhage, mass, or midline shift is present. No extra-axial fluid collection or suggestion of acute territorial infarction. Ventricular system and basilar cisterns are unremarkable. Visualized paranasal sinuses and mastoid air cells are well aerated and clear. No calvarial abnormality identified. IMPRESSION: 1. No acute intracranial abnormality. 01/04/21 CXR: FINDINGS: SUPPORT DEVICES: None. HEART / MEDIASTINUM: No significant abnormality. LUNGS / PLEURA: Mild pulmonary vascular congestion. Otherwise, the lungs are grossly clear. No pneumothorax. ADDITIONAL FINDINGS: No significant additional findings. IMPRESSION: 1. Mild pulmonary vascular congestion. XR L-spine- pending V/Q Scan- pending 11/19/20 Doppler RIGHT CAROTID: - PLAQUE ESTIMATE (%): < 50% - CCA velocity: 98 cm/sec. - ICA peak systolic velocity: 94 cm/sec. - ICA/CCA PSV Ratio: 0.95 Right Vertebral Artery: Antegrade flow. LEFT CAROTID: - PLAQUE ESTIMATE: < 50% - CCA velocity: 94 cm/sec. - ICA peak systolic velocity: 89 cm/sec. - ICA/CCA PSV Ratio: 0.95 MRI Brain 11/19/20 FINDINGS: INTRACRANIAL: No restricted diffusion. No hemorrhage. Ventricular caliber is normal. No extra-axial collection. No mass. No herniation. Major intracranial vascular flow voids are preserved. ORBITS: No significant abnor mality of visualized orbits. SINUSES / MASTOIDS: No significant abnormality of visualized sinuses and mastoid air cells. ADDITIONAL FINDINGS: None. IMPRESSION: 1. No significant intracranial abnormality. Assessment and Plan Assessment and plan: Syncope -Reports syncopal episode x1 yesterday (01/03/2021) -Previously admitted in October of this year with complaints of syncopal episodes with right leg numbness prodromal period; will start syncope was due to DKA at that time -Today CT head negative -Review of carotid Doppler on 11/19 shows less than 50% stenosis in both left and right carotid arteries -MRI on 11/19 for acute abnormalities -Echo on 11/18 shows normal left ventricular systolic function EF of 55 to 60%; w ith moderate to severe, concentric left ventricle hypertrophy consistent with his chronic uncontrolled hypertension. -Seen and evaluated by [facility], with changes to antihypertensive regimen for optimization of blood pressure -Initiate fall precautions -Neuro checks -Inpatient neurology consult pending -We will defer additional neurological work-up per inpatient neurology recommen dations Malignant hypertension -Blood pressure 193/113 on assessment -Reports that he stopped taking antihypertensives except for hydralazine due to medication overload -We will need education and encouragement to stay on antihypertensive regimen -Monitor BP -Resume home hydralazine and nifedipine -Cardiology consulted Elevated D-dimer -At 501.95 -VQ scan is pending -Given low suspicion for PE will hold off on starting systemic anticoagulation pending VQ scan results Complains of lower back pain -Endorses history of chronic pain -L-spine XR pending -Supportive care ESRD -on HD / -Last dialyzed on 01/03 -Renal dose all meds -Avoid nephrotoxic agents -Nephrology consulted for HD management Elevated troponin -?? 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
--- NOTE | 2021-01-04 07:16 | Nuclear Medicine Report ---
NUCLEAR MEDICINE PERFUSION LUNG SCAN INDICATION / CLINICAL INFORMATION: Shortness of breath, syncope. TECHNIQUE: 5.2 mCi of Tc-99m MAA were given by IV. COMPARISON: Chest radiograph dated 01/04/2021. FINDINGS: PERFUSION: No significant perfusion defects. ADDITIONAL FINDINGS: None. IMPRESSION: 1. Low probability for pulmonary embolism. Signer Name: Maria Teresa Lui MD Signed: 01/04/2021 7:12 AM Workstation Name: [id number]
--- NOTE | 2021-01-04 07:36 | Progress Note ---
Assessment and Plan Assessment and plan: CT head; no acute abnormality noted VQ scan; low probability for PE Chest x-ray; mild vascular congestion --Syncope; Autonomic imbalance CT head without contrast no acute abnormality Fall precautions, Check orthostats Patient had extensive work-up 2 months ago which was negative physical therapy, occupational therapy Admitting physician requested neuro evaluation --Hypertensive urgency; present on admission Resume multiple home antihypertensive medications As needed hydralazine --Non-ST elevation TX; probably type II In the setting of ESRD, however troponin today is little higher than Patient's baseline level, cardiology consulted --ESRD; on hemodialysis; HD per schedule, nephrology consulted --Hyponatremia/ hypokalemia; Management per nephrology closely monitor electrolytes --Type 2 diabetes mellitus; moderate control Accu-Chek sliding scale coverage ADA diet long-acting insulin as needed. A1c 6.8 Diabetic education, nutrition education Home health nurse for disease monitoring at discharge if needed --Elevated D-dimers; VQ scan low probability for PE We will check lower extremity venous Doppler to rule out DVT --Morbid obesity; BMI 39.0 Partly due to fluid overload and ESRD Treat the underlying cause Patient needs weight reduction when medically stable --DVT prophylaxis; Heparin subcu renal dose We will closely monitor the patient and adjust the management as needed Plan of care reviewed with the patient and his nurse Advance care plan, time spent 35 minutes History Interval history: I seen and examined the patient in ER awaiting bed assignment this morning Patient's chart, tests and reports and current medication list reviewed Patient with end-stage renal disease on hemodialysis, admitted with chest pain Patient continues to have mild chest pain intermittent Better than last night Denies any shortness of breath or palpitations Claims compliance with dialysis Vital signs noted Hospitalist Physical - Constitutional Vitals: Temp Pulse Resp BP Pulse Ox 98.7 F 90 18 164/102 96 01/04/21 02:52 01/04/21 06:45 01/04/21 06:45 01/04/21 06:45 01/04/21 06:45 General appearance: Present: mild distress, well-nourished, obese (Morbidly obese) - EENT Eyes: Present: PERRL, EOM intact - Neck Neck: Present: supple, normal ROM - Respiratory Respiratory effort: normal Respiratory: bilateral: diminished, rales, negative: rhonchi, wheezing - Cardiovascular Rhythm: regular Heart Sounds: Present: S1 & S2 - Extremities Extremities: no ischemia, No edema - Abdominal General gastrointestinal: soft, non-tender, non-distended, normal bowel sounds - Integumentary Integumentary: Present: clear, warm - Psychiatric Psychiatric: appropriate mood/affect, cooperative - Neurologic Neurologic: CNII-XII intact, moves all extremities HEART Score - HEART Score Troponin: Troponin T 0.266 ng/mL (0.00-0.029) H* 01/04/21 03:23 Results - Labs CBC & Chem 7: 01/04/21 03:23 01/04/21 03:23 Labs: Laboratory Last Values WBC 8.5 K/mm3 (4.5-11.0) 01/04/21 03:23 RBC 3.57 M/mm3 (3.65-5.03) L 01/04/21 03:23 Hgb 11.7 gm/dl (11.8-15.2) L 01/04/21 03:23 Hct 33.4 % (35.5-45.6) L 01/04/21 03:23 MCV 94 fl (84-94) 01/04/21 03:23 MCH 33 pg (28-32) H 01/04/21 03:23 MCHC 35 % (32-34) H 01/04/21 03:23 RDW 14.2 % (13.2-15.2) 01/04/21 03:23 Plt Count 208 K/mm3 (140-440) 01/04/21 03:23 Lymph % (Auto) 14.3 % (13.4-35.0) 01/04/21 03:23 [place] % (Auto) 8.4 % (0.0-7.3) H 01/04/21 03:23 Eos % (Auto) 2.1 % (0.0-4.3) 01/04/21 03:23 Baso % (Auto) 0.7 % (0.0-1.8) 01/04/21 03:23 Lymph # (Auto) 1.2 K/mm3 (1.2-5.4) 01/04/21 03:23 [place] # (Auto) 0.7 K/mm3 (0.0-0.8) 01/04/21 03:23 Eos # (Auto) 0.2 K/mm3 (0.0-0.4) 01/04/21 03:23 Baso # (Auto) 0.1 K/mm3 (0.0-0.1) 01/04/21 03:23 Seg Neutrophils % 74.5 % (40.0-70.0) H 01/04/21 03:23 Seg Neutrophils # 6.4 K/mm3 (1.8-7.7) 01/04/21 03:23 PT 13.0 Sec. (12.2-14.9) 01/04/21 03:23 INR 0.92 (0.87-1.13) 01/04/21 03:23 APTT 29.9 Sec. (24.2-36.6) 01/04/21 03:23 D-Dimer 501.95 ng/mlDDU (0-234) H 01/04/21 03:23 VBG pH 7.401 (7.320-7.420) 01/04/21 03:23 Sodium 136 mmol/L (137-145) L 01/04/21 03:23 Potassium 3.5 mmol/L (3.6-5.0) L 01/04/21 03:23 Chloride 94.6 mmol/L (98-107) L 01/04/21 03:23 Carbon Dioxide 28 mmol/L (22-30) 01/04/21 03:23 Anion Gap 17 mmol/L 01/04/21 03:23 BUN 30 mg/dL (9-20) H 01/04/21 03:23 Creatinine 5.1 mg/dL (0.8-1.3) H 01/04/21 03:23 Estimated GFR 16 ml/min 01/04/21 03:23 BUN/Creatinine Ratio 6 % 01/04/21 03:23 Glucose 192 mg/dL (75-100) H 01/04/21 03:23 Hemoglobin A1c 6.8 % (4-6) H 01/04/21 03:23 Calcium 9.3 mg/dL (8.4-10.2) 01/04/21 03:23 Magnesium 2.50 mg/dL (1.7-2.3) H 01/04/21 03:23 Total Bilirubin 0.50 mg/dL (0.1-1.2) 01/04/21 03:23 AST 13 units/L (5-40) 01/04/21 03:23 ALT 10 units/L (7-56) 01/04/21 03:23 Alkaline Phosphatase 105 units/L (35-129) 01/04/21 03:23 Total Creatine Kinase 94 units/L (55-170) 01/04/21 03:23 CK-MB (CK-2) 5.0 ng/mL (0.0-4.0) H 01/04/21 03:23 CK-MB (CK-2) Rel Index 5.3 (0-4) H 01/04/21 03:23 Troponin T 0.266 ng/mL (0.00-0.029) H* 01/04/21 03:23 Total Protein 7.3 g/dL (6.3-8.2) 01/04/21 03:23 Albumin 3.9 g/dL (3.9-5) 01/04/21 03:23 Albumin/Globulin Ratio 1.1 % 01/04/21 03:23 Triglycerides 210 mg/dL (2-149) H 01/04/21 03:23 Cholesterol 138 mg/dL (50-199) 01/04/21 03:23 LDL Cholesterol Direct 73 mg/dL (50-130) 01/04/21 03:23 HDL Cholesterol 35 mg/dL (40-59) L 01/04/21 03:23 Cholesterol/HDL Ratio 3.94 % 01/04/21 03:23 TSH 1.530 mlU/mL (0.270-4.200) 01/04/21 03:23 Free T4 1.56 ng/dL (0.76-1.46) H 01/04/21 03:23 Plasma/Serum Alcohol < 0.01 % (0-0.07) 01/04/21 03:23 Active Medications - Current Medications Current Medications: Generic Name Dose Route Start Last Admin Trade Name Freq PRN Reason Stop Dose Admin Acetaminophen 650 mg 01/04/21 05:25 Acetaminophen 325 Mg Tab PO Q4H PRN Pain MILD(1-3)/Fever >100.5/CHOUDHARY Albuterol 2.5 mg 01/04/21 05:25 Albuterol 2.5 Mg/3 Ml Nebu IH Q3HRT PRN Shortness Of Breath Baclofen 10 mg 01/04/21 05:09 Baclofen 10 Mg Tab PO QHS PRN Muscle Spasm Clonidine HCl 0.2 mg 01/09/21 10:00 Clonidine Tts 0.2 Mg/24 Hr Patch TD We@1000 [facility] Darunavir 800 mg 01/04/21 10:00 Darunavir 800 Mg Tab PO QDAY [facility] Docusate Sodium 100 mg 01/04/21 10:00 Docusate Sodium 100 Mg Cap PO BID [facility] Famotidine 10 mg 01/04/21 10:00 Famotidine 10 Mg Tab PO BID [facility] Heparin Sodium (Porcine) 5,000 unit 01/04/21 10:00 Heparin 5,000 Unit/1 Ml Vial SUB-Q BID [facility] Hydralazine HCl 100 mg 01/04/21 08:00 Hydralazine 100 Mg Tab PO TID [facility] Insulin Glargine 10 units 01/04/21 08:00 Insulin Glargine 100 Units/Ml SUB-Q QAMDIAB [facility] Insulin Human Lispro 0 unit 01/04/21 07:30 Insulin Lispro 100 Unit/Ml SUB-Q ACHS [facility] Protocol Labetalol HCl 300 mg 01/04/21 10:00 Labetalol 100 Mg Tab PO BID [facility] Losartan Potassium 50 mg 01/04/21 10:00 Losartan 50 Mg Tab PO QDAY [facility] Miscellaneous Medication 1 tab 01/04/21 10:00 Dolutegravir/Rilpivirine [Juluca 50-25 Mg Tablet] PO DAILY [facility] Nifedipine 60 mg 01/04/21 10:00 Nifedipine Xl 60 Mg Tab PO QDAY [facility] Ondansetron HCl 4 mg 01/04/21 05:25 Ondansetron 4 Mg/2 Ml Inj IV Q6H PRN Nausea And Vomiting Oxycodone/Acetaminophen 1 tab 01/04/21 05:25 Oxycodone /Acetaminophen 5-325mg Tab PO Q6H PRN Pain, Moderate (4-6) Ritonavir 100 mg 01/04/21 10:00 Ritonavir 100 Mg Tab PO QDAY [facility] Sodium Chloride 10 ml 01/04/21 10:00 Sodium Chloride 0.9% 10 Ml Flush Syringe IV BID [facility] Sodium Chloride 10 ml 01/04/21 05:25 Sodium Chloride 0.9% 10 Ml Flush Syringe IV PRN PRN LINE FLUSH
[2021-01-04] MEDS: oxyCODONE /ACETAMINOPHEN 5-325MG TAB PO PRN ×3 (08:24→22:14)
--- NOTE | 2021-01-04 09:19 | Consultation ---
History of Present Illness Consult date: 01/04/21 Consult reason: syncope, tachycardia History of present illness: 35-year-old M with HIV, end-stage renal disease on hemodialysis, diabetes, and p oorly controlled hypertension. There is no prior cardiac history. Most recent cardiac assessment was an echocardiogram in October that showed normal left ventricular systolic function with ejection fraction 55-60%, with moderate to severe, concentric left ventricle hypertrophy consistent with his chronic uncontrolled hypertension. He presented to the emergency department with syncope. He reports after standing from using the restroom he passed out. When he came to himself he had no chest pain, no unusual shortness of breath, and no palpitations. Patient reports last syncopal episode was several weeks ago but this was thought secondary to severe uncontrolled hypertension and uncontrolled diabetes. Patient denies missed dialysis sessions. Head CT shows no acute abnormalities. Chest x-ray reports clear lungs. Lung scan reports low probability for PE. Laboratory measurement shows chronically elevated troponin levels. Noted with severe uncontrolled hypertension, with BP 206/125 on presentation. EKG is mild sinus tachycardia, left ventricle hypertrophy with repolarization abnormalities. Past History Past Medical History: diabetes, dialysis (T//), ESRD, HIV/AIDS, hypertension, other (Migraines, gastroparesis, chronic pain) Past Surgical History: cholecystectomy, Other (Dialysis port in right chest. fistula in left arm) Social history: Lives alone, full code. denies: smoking, alcohol abuse, prescription drug abuse, IV drug use Family history: no significant family history Medications and Allergies Allergies Allergy/AdvReac Type Severity Reaction Status Date / Time Penicillins Allergy Hives Verified 06/06/19 18:03 tramadol AdvReac Vomiting Verified 06/06/19 18:03 Home Medications Medication Instructions Recorded Confirmed Last Taken Type Acetaminophen [Acetaminophen TAB] 650 mg PO Q4H PRN tablet 05/10/19 11/19/20 06/07/19 07:00 Rx Darunavir [Prezista] 800 mg PO QDAY tablet 05/10/19 11/19/20 11/18/20 Rx Ritonavir 100 mg PO QDAY #10 tab 05/10/19 11/19/20 11/18/20 Rx Dolutegravir/Rilpivirine [Juluca 1 tab PO DAILY 11/19/20 11/19/20 11/18/20 History 50-25 mg Tablet] Ferric Citrate (Nf) [Auryxia] 1 tab PO TID 11/19/20 11/19/20 11/18/20 History Baclofen [Lioresal] 10 mg PO QHS PRN #10 tablet 11/23/20 Unknown Rx HYDROcodone/APAP 7.5-325 [[place] 1 each PO Q6H PRN #8 tablet 11/23/20 Unknown Rx 7.5-325 mg TAB] Insulin NPH/Regular [NovoLIN 70/30] 30 unit SUB-Q BIDDIAB 30 Days 11/23/20 Unknown Rx units Losartan [Cozaar] 50 mg PO QDAY #30 tablet 11/23/20 Unknown Rx NIFEdipine XL [Procardia Xl] 60 mg PO QDAY #30 tablet 11/23/20 Unknown Rx cloNIDine-TTS PATCH [Catapres-Tts 0.2 mg TD We@1000 #4 patch 11/23/20 Unknown Rx 0.2mg Patch] hydrALAZINE [Apresoline TAB] 100 mg PO TID #30 tab 11/23/20 Unknown Rx labetaloL [Labetalol 100mg TAB] 300 mg PO BID #60 tablet 11/23/20 Unknown Rx Active Meds: Active Medications Acetaminophen (Acetaminophen 325 Mg Tab) 650 mg PO Q4H PRN PRN Reason: Pain MILD(1-3)/Fever >100.5/CHOUDHARY Albuterol (Albuterol 2.5 Mg/3 Ml Nebu) 2.5 mg IH Q3HRT PRN PRN Reason: Shortness Of Breath Baclofen (Baclofen 10 Mg Tab) 10 mg PO QHS PRN PRN Reason: Muscle Spasm Clonidine HCl (Clonidine Tts 0.2 Mg/24 Hr Patch) 0.2 mg TD We@1000 [facility] Darunavir (Darunavir 800 Mg Tab) 800 mg PO QDAY [facility] Docusate Sodium (Docusate Sodium 100 Mg Cap) 100 mg PO BID [facility] Famotidine (Famotidine 10 Mg Tab) 10 mg PO BID [facility] Heparin Sodium (Porcine) (Heparin 5,000 Unit/1 Ml Vial) 5,000 unit SUB-Q BID [facility] Hydralazine HCl (Hydralazine 100 Mg Tab) 100 mg PO TID [facility] Sodium Chloride (Nacl 0.9%) 100 mls @ 999 mls/hr IV TORY PRN PRN Reason: Hypotension Insulin Glargine (Insulin Glargine 100 Units/Ml) 10 units SUB-Q QAMDIAB [facility] Insulin Human Lispro (Insulin Lispro 100 Unit/Ml) 0 unit SUB-Q ACHS [facility]; Protocol Labetalol HCl (Labetalol 100 Mg Tab) 300 mg PO BID [facility] Losartan Potassium (Losartan 50 Mg Tab) 50 mg PO QDAY [facility] Miscellaneous Medication (Dolutegravir/Rilpivirine [Juluca 50-25 Mg Tablet]) 1 tab PO DAILY [facility] Nifedipine (Nifedipine Xl 60 Mg Tab) 60 mg PO QDAY [facility] Ondansetron HCl (Ondansetron 4 Mg/2 Ml Inj) 4 mg IV Q6H PRN PRN Reason: Nausea And Vomiting Oxycodone/Acetaminophen (Oxycodone /Acetaminophen 5-325mg Tab) 1 tab PO Q6H PRN PRN Reason: Pain, Moderate (4-6) Last Admin: 01/04/21 08:24 Dose: 1 tab Documented by: Ritonavir (Ritonavir 100 Mg Tab) 100 mg PO QDAY [facility] Sodium Chloride (Sodium Chloride 0.9% 10 Ml Flush Syringe) 10 ml IV BID [facility] Sodium Chloride (Sodium Chloride 0.9% 10 Ml Flush Syringe) 10 ml IV PRN PRN PRN Reason: LINE FLUSH Review of Systems Cardiovascular: syncope, high blood pressure Physical Examination Vital Signs Temp Pulse Resp BP Pulse Ox 98.7 F 104 H 24 206/125 96 01/04/21 02:52 01/04/21 02:52 01/04/21 02:52 01/04/21 02:52 01/04/21 02:52 General appearance: no acute distress HEENT: Positive: PERRL Neck: Positive: trachea midline Cardiac: Positive: Reg Rate and Rhythm Lungs: Positive: Normal Breath Sounds Neuro: Positive: Grossly Intact Extremities: Absent: edema Results 01/04/21 03:23 01/04/21 03:23 Cardiac Enzymes 01/04/21 Range/Units 03:23 AST 13 (5-40) units/L CK-MB (CK-2) 5.0 H (0.0-4.0) ng/mL Coagulation 01/04/21 Range/Units 03:23 PT 13.0 (12.2-14.9) Sec. INR 0.92 (0.87-1.13) APTT 29.9 (24.2-36.6) Sec. Lipids 01/04/21 Range/Units 03:23 Triglycerides 210 H (2-149) mg/dL Cholesterol 138 (50-199) mg/dL HDL Cholesterol 35 L (40-59) mg/dL Cholesterol/HDL Ratio 3.94 % CBC 01/04/21 Range/Units 03:23 WBC 8.5 (4.5-11.0) K/mm3 RBC 3.57 L (3.65-5.03) M/mm3 Hgb 11.7 L (11.8-15.2) gm/dl Hct 33.4 L (35.5-45.6) % Plt Count 208 (140-440) K/mm3 Lymph # (Auto) 1.2 (1.2-5.4) K/mm3 [place] # (Auto) 0.7 (0.0-0.8) K/mm3 Eos # (Auto) 0.2 (0.0-0.4) K/mm3 Baso # (Auto) 0.1 (0.0-0.1) K/mm3 Comprehensive Metabolic Panel 01/04/21 Range/Units 03:23 Sodium 136 L (137-145) mmol/L Potassium 3.5 L (3.6-5.0) mmol/L Chloride 94.6 L (98-107) mmol/L Carbon Dioxide 28 (22-30) mmol/L BUN 30 H (9-20) mg/dL Creatinine 5.1 H (0.8-1.3) mg/dL Glucose 192 H (75-100) mg/dL Calcium 9.3 (8.4-10.2) mg/dL AST 13 (5-40) units/L ALT 10 (7-56) units/L Alkaline Phosphatase 105 (35-129) units/L Total Protein 7.3 (6.3-8.2) g/dL Albumin 3.9 (3.9-5) g/dL Assessment and Plan Syncope Head CT shows no acute abnormalities. Lung scan reports low probability for PE. Elevated troponin, nonspecific in the setting of renal disease Severe uncontrolled Hypertension Diabetes End-stage renal disease on hemodialysis denies missed dialysis sessions. Human immunodeficiency virus 10/2020 Echocardiogram showed normal left ventricular systolic function with ejection fraction 55-60%, with moderate to severe, concentric left ventricle hypertrophy consistent with his chronic uncontrolled hypertension.
[2021-01-04 09:49] LABS: Hepatitis B Surface Antigen Non-Reactive (Negative); Hepatitis C Virus Antibody Non-Reactive (NonReactive)
[2021-01-04] MEDS ORDERED: NON-FORMULARY EACH (Dolutegravir/Rilpivirine [Juluca 50-25 Mg Tablet] 1 EACH Tablet) PO SCH (10:00)
[2021-01-04] MEDS ORDERED: DARUNAVIR 800 MG TAB PO SCH (11:00)
[2021-01-04] MEDS ORDERED: RITONAVIR 100 MG TAB PO SCH (11:00)
[2021-01-04] MEDS ORDERED: SODIUM CHLORIDE 0.9% 100 ML IV PRN (11:00)
[2021-01-04] MEDS: EPOETIN ALFA-EPBX 10,000 UNIT/1 ML VIAL IV PRN (11:45)
--- NOTE | 2021-01-04 12:24 | Consultation ---
History of Present Illness - Reason for Consult end stage renal disease - History of Present Illness very pleasant 35-year-old -Japanese male well known to our outpatient dialysis unit who we have been managing for end-stage renal disease in the setting of hypertension and diabetes, presented to the emergency department secondary to a syncopal episode at home. Apparently the syncopal episode happ ened after he got up from a seated position while on the commode. He has been worked up here in the hospital with a CT of the head which was negative along with a VQ scan that indicated a low probability of a pulmonary embolus. His last hemodialysis treatment was yesterday and he is currently on a Thursday//Thursday outpatient dialysis schedule. He denies any missed dialysis sessions. He has a functional left upper extremity AV fistula without any issues at this time. Nephrology consult at this time for further management of patient's end-stage renal disease. Past History Past Medical History: diabetes, dialysis (//), ESRD, HIV/AIDS, hypertension, other (Migraines, gastroparesis, chronic pain) Past Surgical History: cholecystectomy, Other (Dialysis port in right chest. fistula in left arm) Social history: Lives alone, full code. denies: smoking, alcohol abuse, prescription drug abuse, IV drug use Family history: no significant family history Medications and Allergies Allergies Allergy/AdvReac Type Severity Reaction Status Date / Time Penicillins Allergy Hives Verified 06/06/19 18:03 tramadol AdvReac Vomiting Verified 06/06/19 18:03 Home Medications Medication Instructions Recorded Confirmed Last Taken Type Acetaminophen [Acetaminophen TAB] 650 mg PO Q4H PRN tablet 05/10/19 11/19/20 06/07/19 07:00 Rx Darunavir [Prezista] 800 mg PO QDAY tablet 05/10/19 11/19/20 11/18/20 Rx Ritonavir 100 mg PO QDAY #10 tab 05/10/19 11/19/20 11/18/20 Rx Dolutegravir/Rilpivirine [[place] 1 tab PO DAILY 11/19/20 11/19/20 11/18/20 History 50-25 mg Tablet] Ferric Citrate (Nf) [Auryxia] 1 tab PO TID 11/19/20 11/19/20 11/18/20 History Baclofen [Lioresal] 10 mg PO QHS PRN #10 tablet 11/23/20 Unknown Rx HYDROcodone/APAP 7.5-325 [[place] 1 each PO Q6H PRN #8 tablet 11/23/20 Unknown Rx 7.5-325 mg TAB] Insulin NPH/Regular [NovoLIN 70/30] 30 unit SUB-Q BIDDIAB 30 Days 11/23/20 Unknown Rx units Losartan [Cozaar] 50 mg PO QDAY #30 tablet 11/23/20 Unknown Rx NIFEdipine XL [Procardia Xl] 60 mg PO QDAY #30 tablet 11/23/20 Unknown Rx cloNIDine-TTS PATCH [Catapres-Tts 0.2 mg TD We@1000 #4 patch 11/23/20 Unknown Rx 0.2mg Patch] hydrALAZINE [Apresoline TAB] 100 mg PO TID #30 tab 11/23/20 Unknown Rx labetaloL [Labetalol 100mg TAB] 300 mg PO BID #60 tablet 11/23/20 Unknown Rx Active Meds: Active Medications Acetaminophen (Acetaminophen 325 Mg Tab) 650 mg PO Q4H PRN PRN Reason: Pain MILD(1-3)/Fever >100.5/CHOUDHARY Albuterol (Albuterol 2.5 Mg/3 Ml Nebu) 2.5 mg IH Q3HRT PRN PRN Reason: Shortness Of Breath Baclofen (Baclofen 10 Mg Tab) 10 mg PO QHS PRN PRN Reason: Muscle Spasm Clonidine HCl (Clonidine Tts 0.2 Mg/24 Hr Patch) 0.2 mg TD We@1000 [facility] Darunavir (Darunavir 800 Mg Tab) 800 mg PO QDAY [facility] Docusate Sodium (Docusate Sodium 100 Mg Cap) 100 mg PO BID [facility] Famotidine (Famotidine 10 Mg Tab) 10 mg PO BID [facility] Heparin Sodium (Porcine) (Heparin 5,000 Unit/1 Ml Vial) 5,000 unit SUB-Q BID [facility] Hydralazine HCl (Hydralazine 100 Mg Tab) 100 mg PO TID [facility] Sodium Chloride (Nacl 0.9%) 100 mls @ 999 mls/hr IV TORY PRN PRN Reason: Hypotension Insulin Glargine (Insulin Glargine 100 Units/Ml) 10 units SUB-Q QAMDIAB [facility] Insulin Human Lispro (Insulin Lispro 100 Unit/Ml) 0 unit SUB-Q ACHS [facility]; Protocol Labetalol HCl (Labetalol 100 Mg Tab) 300 mg PO BID [facility] Losartan Potassium (Losartan 50 Mg Tab) 50 mg PO QDAY [facility] Miscellaneous Medication (Dolutegravir/Rilpivirine [[place] 50-25 Mg Tablet]) 1 tab PO DAILY [facility] Nifedipine (Nifedipine Xl 60 Mg Tab) 60 mg PO QDAY [facility] Ondansetron HCl (Ondansetron 4 Mg/2 Ml Inj) 4 mg IV Q6H PRN PRN Reason: Nausea And Vomiting Oxycodone/Acetaminophen (Oxycodone /Acetaminophen 5-325mg Tab) 1 tab PO Q6H PRN PRN Reason: Pain, Moderate (4-6) Last Admin: 01/04/21 08:24 Dose: 1 tab Documented by: Ritonavir (Ritonavir 100 Mg Tab) 100 mg PO QDAY [facility] Sodium Chloride (Sodium Chloride 0.9% 10 Ml Flush Syringe) 10 ml IV BID [facility] Sodium Chloride (Sodium Chloride 0.9% 10 Ml Flush Syringe) 10 ml IV PRN PRN PRN Reason: LINE FLUSH Review of Systems All systems: negative Constitutional: fatigue, weakness Exam - Vital Signs Vital signs: Vital Signs Temp Pulse Resp BP Pulse Ox 98.7 F 104 H 24 206/125 96 01/04/21 02:52 01/04/21 02:52 01/04/21 02:52 01/04/21 02:52 01/04/21 02:52 - General Appearance General appearance: well-developed, well-nourished, obese EENT: ATNC Neck: Present: neck supple Respiratory: Decreased Breath Sounds Heart: regular Gastrointestinal: Present: normal Integumentary: no rash, warm and dry Neurologic: no focal deficit, no asterixis Musculoskeletal: Present: deferred Psychiatric: mood/affect appropriate, cooperative Results - Lab Results 01/04/21 03:23 01/04/21 03:23 Most recent lab results Calcium 9.3 mg/dL (8.4-10.2) 01/04/21 03:23 Magnesium 2.50 mg/dL (1.7-2.3) H 01/04/21 03:23 Assessment and Plan - Patient Problems (1) Syncope Current Visit: Yes Status: Acute Qualifiers: Plan to address problem: overall workup including CT of the head and VQ scan have both been negative. Hemodynamically patient is stable at this timein fact is hypertensive this morning. We will continue to monitor closely. (2) ESRD (end stage renal disease) Current Visit: No Status: Chronic Plan to address problem: we will plan for extra sequential ultrafiltration treatment today and placed back on a Thursday//Thursday inpatient hemodialysis schedule otherwise. (3) Hypertensive chronic kidney disease with stage 5 chronic kidney disease or end stage renal disease Current Visit: No Status: Chronic Plan to address problem: monitor blood pressures under current regimen. Anticipate further improvement with adequate volume removal and volume optimization. (4) Type 2 diabetes mellitus Current Visit: No Status: Chronic Qualifiers: Diabetes mellitus correction insulin use: unspecified correction insulin use status Diabetes mellitus complication status: with kidney complications Diabetes mellitus complication detail: with chronic kidney disease Chronic kidney disease stage: on chronic dialysis Qualified Code(s): E11.22 - Type 2 diabetes mellitus with diabetic chronic kidney disease; N18.6 - End stage renal disease; Z99.2 - Dependence on renal dialysis Plan to address problem: diabetes management per primary attending. (5) HIV (human immunodeficiency virus infection) Current Visit: No Status: Chronic Qualifiers: HIV symptom status: unspecified Qualified Code(s): B20 - Human immunodeficiency virus [HIV] disease Plan to address problem: continue current outpatient management at this time.
[2021-01-04] MEDS: hydrALAZINE 100 MG TAB PO SCH ×3 (16:09→21:32)
[2021-01-04] MEDS: INSULIN LISPRO 100 UNIT/ML SUB-Q SCH ×3 (16:09→21:30)
[2021-01-04] MEDS: DOCUSATE SODIUM 100 MG CAP PO SCH ×2 (16:10→21:30)
[2021-01-04] MEDS: INSULIN GLARGINE 100 UNITS/ML SUB-Q SCH (16:10)
[2021-01-04] MEDS: HEPARIN 5,000 UNIT/1 ML VIAL SUB-Q SCH ×2 (16:10→21:30)
[2021-01-04] MEDS: FAMOTIDINE 10 MG TAB PO SCH ×2 (16:11→21:30)
[2021-01-04] MEDS: LOSARTAN 50 MG TAB PO SCH (16:22)
[2021-01-04] MEDS: NIFEdipine XL 60 MG TAB PO SCH (16:22)
[2021-01-05 06:05] LABS: Calcium 8.6 mg/dL (8.4-10.2)
[2021-01-05] MEDS: oxyCODONE /ACETAMINOPHEN 5-325MG TAB PO PRN ×2 (08:03→18:46)
[2021-01-05 09:19] LABS: Amphetamine Screen,Urine Negative; Benzodiazepines Screen,Urine Negative; Cannabinoid Screen,Urine Negative; Cocaine Screen,Urine Negative; Methadone Screen,Urine Negative; Opiate Screen,Urine Negative
[2021-01-05] MEDS ORDERED: SODIUM CHLORIDE 0.9% 100 ML IV PRN (09:25)
--- NOTE | 2021-01-05 09:47 | Progress Note ---
Assessment and Plan - Patient Problems (1) Syncope Current Visit: Yes Status: Acute Qualifiers: Plan to address problem: Cardiac work-up this time. Continue cardiac monitoring. For stress test on Thursday per cardiology. (2) Type 2 diabetes mellitus with diabetic chronic kidney disease Current Visit: Yes Status: Acute Plan to address problem: Blood sugar management by primary attending. (3) Hypertensive chronic kidney disease with stage 5 chronic kidney disease or end stage renal disease Current Visit: No Status: Chronic Plan to address problem: Follow-up blood pressure on current medications. Observe for orthostasis (4) End stage renal disease Current Visit: Yes Status: Acute Plan to address problem: Hemodialysis today and then continue on a Thursday, and Thursday schedule. (5) HIV (human immunodeficiency virus infection) Current Visit: No Status: Chronic Qualifiers: HIV symptom status: unspecified Qualified Code(s): B20 - Human immunodeficiency virus [HIV] disease Plan to address problem: Continue antiretrovirals Subjective Date of service: 01/05/21 Principal diagnosis: ESRD, syncope Interval history: Patient seen lying in bed. He has no new complaints. Patient is really concerned about the episode of syncope. His blood sugar and blood pressure were not extremely high this time. He has been having some episodes of palpitations though he did not have any just prior to the episode of syncope. It came on without any warning and only became aware that something happened when he found himself on the floor on awakening. He has been noticing shortness of breath on walking a slight incline this last week and had difficulty even climbing a couple of steps. Last admission, patient had an MRI of the brain which did not show any lesions. Objective - Exam Narrative Exam: Young male lying in bed in no acute distress HEENT: NCAT, pink oral mucous membrane Neck: Supple, no venous distention CVS: S1S2 RRR with no murmur, rub or gallop Chest: Clear to auscultation Abdomen: Protuberant, soft, nontender, no organomegaly, bowel sounds are present Extremities: No edema Neuro: Awake, alert no focal deficits - Vital Signs Vital signs: Vital Signs - 12hr 01/04/21 01/05/21 01/05/21 23:09 00:00 04:05 Temperature 99.3 F 97.7 F Pulse Rate 90 84 86 Respiratory 18 16 Rate Blood Pressure 136/78 147/91 O2 Sat by Pulse 97 96 Oximetry - Lab 01/04/21 03:23 01/05/21 04:20 Most recent lab results Calcium 8.6 mg/dL (8.4-10.2) 01/05/21 04:20 Magnesium 2.50 mg/dL (1.7-2.3) H 01/04/21 03:23 Medications & Allergies - Medications Allergies/Adverse Reactions: Allergies Penicillins Allergy (Verified 06/06/19 18:03) Hives tramadol Adverse Reaction (Verified 06/06/19 18:03) Vomiting Home Medications: Home Medications Medication Instructions Recorded Confirmed Last Taken Type Acetaminophen [Acetaminophen TAB] 650 mg PO Q4H PRN tablet 05/10/19 11/19/20 06/07/19 07:00 Rx Darunavir [Prezista] 800 mg PO QDAY tablet 05/10/19 11/19/20 11/18/20 Rx Ritonavir 100 mg PO QDAY #10 tab 05/10/19 11/19/20 11/18/20 Rx Dolutegravir/Rilpivirine [Juluca 1 tab PO DAILY 11/19/20 11/19/20 11/18/20 History 50-25 mg Tablet] Ferric Citrate (Nf) [Auryxia] 1 tab PO TID 11/19/20 11/19/20 11/18/20 History Baclofen [Lioresal] 10 mg PO QHS PRN #10 tablet 11/23/20 Unknown Rx HYDROcodone/APAP 7.5-325 [[place] 1 each PO Q6H PRN #8 tablet 11/23/20 Unknown Rx 7.5-325 mg TAB] Insulin NPH/Regular [NovoLIN 70/30] 30 unit SUB-Q BIDDIAB 30 Days 11/23/20 Unknown Rx units Losartan [Cozaar] 50 mg PO QDAY #30 tablet 11/23/20 Unknown Rx NIFEdipine XL [Procardia Xl] 60 mg PO QDAY #30 tablet 11/23/20 Unknown Rx cloNIDine-TTS PATCH [Catapres-Tts 0.2 mg TD We@1000 #4 patch 11/23/20 Unknown Rx 0.2mg Patch] hydrALAZINE [Apresoline TAB] 100 mg PO TID #30 tab 11/23/20 Unknown Rx labetaloL [Labetalol 100mg TAB] 300 mg PO BID #60 tablet 11/23/20 Unknown Rx Active Medications: Generic Name Dose Route Start Last Admin Trade Name Freq PRN Reason Stop Dose Admin Acetaminophen 650 mg 01/04/21 05:25 Acetaminophen 325 Mg Tab PO Q4H PRN Pain MILD(1-3)/Fever >100.5/CHOUDHARY Albuterol 2.5 mg 01/04/21 05:25 Albuterol 2.5 Mg/3 Ml Nebu IH Q3HRT PRN Shortness Of Breath Baclofen 10 mg 01/04/21 05:09 Baclofen 10 Mg Tab PO QHS PRN Muscle Spasm Clonidine HCl 0.2 mg 01/09/21 10:00 Clonidine Tts 0.2 Mg/24 Hr Patch TD We@1000 SHIRA Darunavir 800 mg 01/04/21 11:00 Darunavir 800 Mg Tab PO QDAY SHIRA Docusate Sodium 100 mg 01/04/21 10:00 01/04/21 21:30 Docusate Sodium 100 Mg Cap PO 100 mg BID SHIRA Administration Famotidine 10 mg 01/04/21 10:00 01/04/21 21:30 Famotidine 10 Mg Tab PO 10 mg BID SHIRA Administration Heparin Sodium (Porcine) 5,000 unit 01/04/21 10:00 01/04/21 21:30 Heparin 5,000 Unit/1 Ml Vial SUB-Q 5,000 unit BID SHIRA Administration Hydralazine HCl 100 mg 01/04/21 08:00 01/04/21 21:32 Hydralazine 100 Mg Tab PO Not Given TID SHIRA Sodium Chloride 100 mls @ 999 mls/hr 01/04/21 11:00 Nacl 0.9% IV TORY PRN Hypotension Sodium Chloride 100 mls @ 999 mls/hr 01/05/21 09:25 Nacl 0.9% IV TORY PRN Hypotension Insulin Glargine 10 units 01/04/21 08:00 01/04/21 16:10 Insulin Glargine 100 Units/Ml SUB-Q Not Given QAMDIAB SHIRA Insulin Human Lispro 0 unit 01/04/21 07:30 01/04/21 21:30 Insulin Lispro 100 Unit/Ml SUB-Q 3 unit ACHS SHIRA Administration Protocol Labetalol HCl 300 mg 01/04/21 10:00 01/04/21 21:32 Labetalol 100 Mg Tab PO Not Given BID SHIRA Losartan Potassium 50 mg 01/04/21 10:00 01/04/21 16:22 Losartan 50 Mg Tab PO 50 mg QDAY SHIRA Administration Miscellaneous Medication 1 tab 01/04/21 10:00 Dolutegravir/Rilpivirine [Jul[place] 50-25 Mg Tablet] PO DAILY SHIRA Nifedipine 60 mg 01/04/21 10:00 01/04/21 16:22 Nifedipine Xl 60 Mg Tab PO 60 mg QDAY SHIRA Administration Ondansetron HCl 4 mg 01/04/21 05:25 Ondansetron 4 Mg/2 Ml Inj IV Q6H PRN Nausea And Vomiting Oxycodone/Acetaminophen 1 tab 01/04/21 05:25 01/05/21 08:03 Oxycodone /Acetaminophen 5-325mg Tab PO 1 tab Q6H PRN Administration Pain, Moderate (4-6) Ritonavir 100 mg 01/04/21 11:00 Ritonavir 100 Mg Tab PO QDAY SHIRA Sodium Chloride 10 ml 01/04/21 10:00 01/04/21 21:33 Sodium Chloride 0.9% 10 Ml Flush Syringe IV 10 ml BID SHIRA Administration Sodium Chloride 10 ml 01/04/21 05:25 Sodium Chloride 0.9% 10 Ml Flush Syringe IV PRN PRN LINE FLUSH
[2021-01-05] MEDS: LOSARTAN 50 MG TAB PO SCH ×2 (10:00→18:44)
[2021-01-05] MEDS: NIFEdipine XL 60 MG TAB PO SCH ×2 (10:00→18:45)
[2021-01-05] MEDS: HEPARIN 5,000 UNIT/1 ML VIAL SUB-Q SCH ×2 (10:13→21:17)
[2021-01-05] MEDS: FAMOTIDINE 10 MG TAB PO SCH ×2 (10:13→21:17)
[2021-01-05] MEDS: DOCUSATE SODIUM 100 MG CAP PO SCH ×2 (10:13→21:17)
[2021-01-05] MEDS: INSULIN GLARGINE 100 UNITS/ML SUB-Q SCH (10:13)
[2021-01-05] MEDS: hydrALAZINE 100 MG TAB PO SCH ×4 (10:16→21:15)
[2021-01-05] MEDS: INSULIN LISPRO 100 UNIT/ML SUB-Q SCH ×4 (10:17→21:17)
--- NOTE | 2021-01-05 14:29 | Progress Note ---
Assessment and Plan - Patient Problems (1) Acute CVA (cerebrovascular accident) Current Visit: Yes Status: Acute Plan to address problem: 1 cm focus of restricted diffusion present in the right anterior temporal lobe white matter, best seen on diffusion weighted image 15-16. This is associated with some decreased ADC signal. Compatible with a small focal area of acute or recent ischemic injury. Patient with no focal deficits. Neurology consult requested. Patient may have syncopized secondary to acute cerebral infarct. (2) Hypertensive emergency Current Visit: Yes Status: Acute Plan to address problem: Improved (3) IDDM (insulin dependent diabetes mellitus) Current Visit: Yes Status: Acute Plan to address problem: Continue insulin and coverage. Adjust insulin dosage. (4) Syncope Current Visit: Yes Status: Acute Qualifiers: Plan to address problem: Syncope secondary to cerebral infarct and orthostatic hypotension Lexiscan is pending (5) End stage renal disease Current Visit: No Status: Chronic Plan to address problem: Continue (6) HIV (human immunodeficiency virus infection) Current Visit: No Status: Chronic Qualifiers: HIV symptom status: unspecified Qualified Code(s): B20 - Human immunodeficiency virus [HIV] disease Plan to address problem: Continue antiretrovirals (7) DVT prophylaxis Current Visit: Yes Status: Acute Plan to address problem: On heparin and GI prophylaxis Subjective Date of service: 01/05/21 Principal diagnosis: ESRD, syncope Interval history: 35-year-old male with history of HIV, uncontrolled hyper, insulin-dependent diabetes, migraines, gastroparesis, chronic pain, ESRD on HD who presents to [facility] ED with complaints of syncopal episode. Patient states he was sitting on the commode, had a bowel movement, and then stood up to wash his hands and had a syncopal episode. He was unsure how long he was unconscious. Denies head injury or trauma, but complains of back pain due to fall. He called 911 and he was transported to our facility for further evaluation and treatment. Additionally he complains of intermittent shortness of breath and palpitations x2 weeks. His dyspnea and palpitations are relieved with rest and aggravated with exertion. Since he has new complaint of dyspnea and palpitations, EKG unrevealing however will consult cardiology ([facility]) for further evaluation. Review of medical record shows patient was admitted in October with similar compla ints of syncopal episodes. He complained of prodromal. Of right leg numbness followed by syncopal episode. At the time patient was found to be in DKA and it was thought that syncopal episodes were related to DKA. Imaging studies during admission were all negative. He was seen by cardiology with changes made to antihypertensive meds for optimization of BP. Denies nausea, vomiting, fever, headache, alterations in vision, abdominal pain, hematuria, melena, hematochezia, IV drug use, illicit drug use, smoking, recent stress/trauma, or recent sick contacts. Objective - Constitutional Vitals: Vital Signs - 12hr 01/05/21 04:05 Temperature 97.7 F Pulse Rate 86 Respiratory 16 Rate Blood Pressure 147/91 O2 Sat by Pulse 96 Oximetry General appearance: Present: no acute distress, well-nourished - EENT Eyes: PERRL, EOM intact ENT: hearing intact, clear oral mucosa Ears: bilateral: normal - Neck Neck: supple, normal ROM - Respiratory Respiratory effort: normal Respiratory: bilateral: CTA - Breasts Breasts: normal - Cardiovascular Heart rate: 78 Rhythm: regular Heart Sounds: Present: S1 & S2. Absent: gallop, rub Extremities: pulses intact, No edema, normal color, Full ROM - Gastrointestinal General gastrointestinal: Present: soft, non-tender, non-distended, normal bowel sounds - Genitourinary Male genitourinary: normal - Integumentary Integumentary: clear, warm, dry - Musculoskeletal Musculoskeletal: 1, strength equal bilaterally - Neurologic Neurologic: moves all extremities - Psychiatric Psychiatric: memory intact, appropriate mood/affect, intact judgment & insight - Labs CBC & Chem 7: 01/09/21 04:31 01/09/21 04:31 Labs: Abnormal lab results 01/04/21 01/04/21 01/05/21 Range/Units 16:13 20:41 04:20 Sodium 135 L (137-145) mmol/L Chloride 97.5 L (98-107) mmol/L BUN 44 H (9-20) mg/dL Creatinine 7.0 H (0.8-1.3) mg/dL Glucose 149 H (75-100) mg/dL POC Glucose 257 H 231 H (70-105) mg/dL 01/05/21 Range/Units 08:06 Sodium (137-145) mmol/L Chloride (98-107) mmol/L BUN (9-20) mg/dL Creatinine (0.8-1.3) mg/dL Glucose (75-100) mg/dL POC Glucose 181 H (70-105) mg/dL HEART Score - HEART Score Troponin: Troponin T 0.217 ng/mL (0.00-0.029) H* 01/04/21 07:20
[2021-01-06] MEDS: oxyCODONE /ACETAMINOPHEN 5-325MG TAB PO PRN ×3 (02:08→17:42)
[2021-01-06] MEDS: INSULIN LISPRO 100 UNIT/ML SUB-Q SCH ×4 (10:05→21:45)
[2021-01-06] MEDS: INSULIN GLARGINE 100 UNITS/ML SUB-Q SCH (10:08)
[2021-01-06] MEDS: hydrALAZINE 100 MG TAB PO SCH ×3 (10:08→21:45)
[2021-01-06] MEDS: HEPARIN 5,000 UNIT/1 ML VIAL SUB-Q SCH ×2 (10:08→21:38)
[2021-01-06] MEDS: FAMOTIDINE 10 MG TAB PO SCH ×2 (10:09→21:39)
[2021-01-06] MEDS: DOCUSATE SODIUM 100 MG CAP PO SCH ×2 (10:09→21:39)
[2021-01-06] MEDS: NIFEdipine XL 60 MG TAB PO SCH (10:09)
[2021-01-06] MEDS: LOSARTAN 50 MG TAB PO SCH (10:09)
--- NOTE | 2021-01-06 11:55 | Progress Note ---
Assessment and Plan Recurrent episodes of syncope none since being admitted to the hospital Normal LVEF by echo 10/2020 CT brain showing NAP Non-specific troponin Essential hypertension fairly well controlled on labetalol Procardia and losartan ESRD on HD x 2 years HIV on HAART Evaluate orthostatic vital signs Lexiscan on thursday to evaluate for ischemic heart disease Monitor on tele while inpatient Subjective Date of service: 01/06/21 Principal diagnosis: ESRD, syncope Interval history: Doing much better. No further syncopal episodes Objective Vital Signs Temp Pulse Resp BP Pulse Ox 01/06/21 08:21 97.3 F L 85 18 133/80 96 01/06/21 04:13 98.4 F 94 H 18 117/72 96 01/06/21 00:18 98.4 F 96 H 18 128/68 97 01/05/21 21:00 97 H 01/05/21 19:26 99.1 F 103 H 18 128/82 97 01/05/21 18:20 98.0 F 100 H 18 167/102 01/05/21 18:10 101 H 167/102 01/05/21 17:45 100 H 164/109 01/05/21 17:30 94 H 170/105 01/05/21 17:15 92 H 174/100 01/05/21 17:00 93 H 174/105 01/05/21 16:45 93 H 174/105 01/05/21 16:30 94 H 176/108 01/05/21 16:15 90 164/98 01/05/21 16:00 92 H 158/99 01/05/21 15:45 94 H 159/97 01/05/21 15:30 94 H 161/97 01/05/21 15:15 87 152/86 01/05/21 15:10 98.4 F 90 18 148/97 01/05/21 14:00 89 - Physical Examination General: No Apparent Distress HEENT: Positive: PERRL, Normocephaly Neck: Positive: neck supple, trachea midline Cardiac: Positive: Reg Rate and Rhythm Lungs: Positive: clear to auscultation Neuro: Positive: Grossly Intact Abdomen: Positive: Unremarkable Skin: Positive: Clear Extremities: Present: normal. Absent: edema
--- NOTE | 2021-01-06 14:45 | Progress Note ---
Assessment and Plan - Patient Problems (1) Acute CVA (cerebrovascular accident) Current Visit: Yes Status: Acute Plan to address problem: 1 cm focus of restricted diffusion present in the right anterior temporal lobe white matter, best seen on diffusion weighted image 15-16. This is associated with some decreased ADC signal. Compatible with a small focal area of acute or recent ischemic injury. Patient with no focal deficits. Neurology consult requested. Patient may have syncopized secondary to acute cerebral infarct. (2) Hypertensive emergency Current Visit: Yes Status: Acute Plan to address problem: Improved (3) IDDM (insulin dependent diabetes mellitus) Current Visit: Yes Status: Acute Plan to address problem: Continue insulin and coverage. Adjust insulin dosage. (4) Syncope Current Visit: Yes Status: Acute Qualifiers: Plan to address problem: Syncope secondary to cerebral infarct and orthostatic hypotension Lexiscan is pending (5) End stage renal disease Current Visit: Yes Status: Chronic Plan to address problem: Continue hemodialysis. (6) HIV (human immunodeficiency virus infection) Current Visit: Yes Status: Chronic Qualifiers: HIV symptom status: asymptomatic, with no history of HIV-related illness Qualified Code(s): Z21 - Asymptomatic human immunodeficiency virus [HIV] infection status Plan to address problem: Continue antiretrovirals. (7) Hypertension Current Visit: Yes Status: Chronic Qualifiers: Hypertension type: essential hypertension Qualified Code(s): I10 - Essential (primary) hypertension Plan to address problem: Continue antihypertensives. Adjust blood pressure medications. (8) DVT prophylaxis Current Visit: No Status: Acute Plan to address problem: Continue heparin and GI prophylaxis Subjective Date of service: 01/06/21 Principal diagnosis: ESRD, syncope Interval history: 35-year-old male with history of HIV, uncontrolled hyper, insulin-dependent diabetes, migraines, gastroparesis, chronic pain, ESRD on HD who presents to [facility] ED with complaints of syncopal episode. Patient states he was sitting on the commode, had a bowel movement, and then stood up to wash his hands and had a syncopal episode. He was unsure how long he was unconscious. Denies head injury or trauma, but complains of back pain due to fall. He called 911 and he was transported to our facility for further evaluation and treatment. Wolfgang tionally he complains of intermittent shortness of breath and palpitations x2 weeks. His dyspnea and palpitations are relieved with rest and aggravated with exertion. Since he has new complaint of dyspnea and palpitations, EKG unrevealing however will consult cardiology ([facility]) for further evaluation. Review of medical record shows patient was admitted in October with similar complaints of syncopal episodes. He complained of prodromal. Of right leg numbness followed by syncopal episode. At the time patient was found to be in DKA and it was thought that syncopal episodes were related to DKA. Imaging studies during admission were all negative. He was seen by cardiology with changes made to antihypertensive meds for optimization of BP. Denies nausea, vomiting, fever, headache, alterations in vision, abdominal pain, hematuria, melena, hematochezia, IV drug use, illicit drug use, smoking, recent stress/trauma, or recent sick contacts 01/05/2021 MR brain pending Syncope work-up Continue hemodialysis 01/06/2021 Blood pressure is improved Continue hemodialysis Objective - Constitutional Vitals: Vital Signs - 12hr 01/06/21 01/06/21 01/06/21 04:13 08:21 11:56 Temperature 98.4 F 97.3 F L 98.3 F Pulse Rate 94 H 85 91 H Respiratory 18 18 18 Rate Blood Pressure 117/72 133/80 105/62 O2 Sat by Pulse 96 96 100 Oximetry 01/06/21 14:00 Temperature Pulse Rate 84 Respiratory Rate Blood Pressure O2 Sat by Pulse Oximetry General appearance: Present: no acute distress, well-nourished - EENT Eyes: PERRL, EOM intact ENT: hearing intact, clear oral mucosa Ears: bilateral: normal - Neck Neck: supple, normal ROM - Respiratory Respiratory effort: normal Respiratory: bilateral: CTA - Breasts Breasts: normal - Cardiovascular Heart rate: 78 Rhythm: regular Heart Sounds: Present: S1 & S2. Absent: gallop, rub Extremities: pulses intact, No edema, normal color, Full ROM - Gastrointestinal General gastrointestinal: Present: soft, non-tender, non-distended, normal bowel sounds - Genitourinary Male genitourinary: normal - Integumentary Integumentary: clear, warm, dry - Musculoskeletal Musculoskeletal: 1, strength equal bilaterally - Neurologic Neurologic: moves all extremities - Psychiatric Psychiatric: memory intact, appropriate mood/affect, intact judgment & insight - Labs CBC & Chem 7: 01/09/21 04:31 01/09/21 04:31 Labs: Abnormal lab results 01/05/21 01/05/21 01/06/21 Range/Units 11:38 21:02 08:19 POC Glucose 200 H 141 H 178 H (70-105) mg/dL 01/06/21 Range/Units 11:54 POC Glucose 233 H (70-105) mg/dL HEART Score - HEART Score Troponin: Troponin T 0.217 ng/mL (0.00-0.029) H* 01/04/21 07:20
--- NOTE | 2021-01-06 14:58 | Progress Note ---
Assessment and Plan - Patient Problems (1) Syncope Current Visit: Yes Status: Acute Qualifiers: Plan to address problem: Cardiac work-up ongoing. Continue cardiac monitoring. For stress test in the morning per cardiology. (2) Type 2 diabetes mellitus with diabetic chronic kidney disease Current Visit: Yes Status: Acute Plan to address problem: Blood sugar management by primary attending. (3) Hypertensive chronic kidney disease with stage 5 chronic kidney disease or end stage renal disease Current Visit: No Status: Chronic Plan to address problem: Follow-up blood pressure on current medications. Observe for orthostasis (4) End stage renal disease Current Visit: Yes Status: Acute Plan to address problem: Hemodialysis today and then continue on a Thursday, and Thursday schedule. (5) HIV (human immunodeficiency virus infection) Current Visit: No Status: Chronic Qualifiers: HIV symptom status: unspecified Qualified Code(s): B20 - Human immunodeficiency virus [HIV] disease Plan to address problem: Continue antiretrovirals Subjective Date of service: 01/06/21 Principal diagnosis: ESRD, syncope Interval history: Patient seen lying in bed. He has no new complaints. No episodes of dizziness. No chest pain or shortness of breath. No nausea or vomiting. Objective - Exam Narrative Exam: Young male lying in bed in no acute distress HEENT: NCAT, pink oral mucous membrane Neck: Supple, no venous distention CVS: S1S2 RRR with no murmur, rub or gallop Chest: Clear to auscultation Abdomen: Protuberant, soft, nontender, no organomegaly, bowel sounds are present Extremities: No edema Neuro: Awake, alert no focal deficits - Vital Signs Vital signs: Vital Signs - 12hr 01/06/21 01/06/21 01/06/21 04:13 08:21 11:56 Temperature 98.4 F 97.3 F L 98.3 F Pulse Rate 94 H 85 91 H Respiratory 18 18 18 Rate Blood Pressure 117/72 133/80 105/62 O2 Sat by Pulse 96 96 100 Oximetry 01/06/21 14:00 Temperature Pulse Rate 84 Respiratory Rate Blood Pressure O2 Sat by Pulse Oximetry - Lab 01/04/21 03:23 01/05/21 04:20 Most recent lab results Calcium 8.6 mg/dL (8.4-10.2) 01/05/21 04:20 Magnesium 2.50 mg/dL (1.7-2.3) H 01/04/21 03:23 Medications & Allergies - Medications Allergies/Adverse Reactions: Allergies Penicillins Allergy (Verified 06/06/19 18:03) Hives tramadol Adverse Reaction (Verified 06/06/19 18:03) Vomiting Home Medications: Home Medications Medication Instructions Recorded Confirmed Last Taken Type Acetaminophen [Acetaminophen TAB] 650 mg PO Q4H PRN tablet 05/10/19 01/05/21 06/07/19 07:00 Rx Darunavir [Prezista] 800 mg PO QDAY tablet 05/10/19 01/05/21 11/18/20 Rx Ritonavir 100 mg PO QDAY #10 tab 05/10/19 01/05/21 11/18/20 Rx Dolutegravir/Rilpivirine [[place] 1 tab PO DAILY 11/19/20 01/05/21 11/18/20 History 50-25 mg Tablet] Ferric Citrate (Nf) [Auryxia] 1 tab PO TID 11/19/20 01/05/21 11/18/20 History Baclofen [Lioresal] 10 mg PO QHS PRN #10 tablet 11/23/20 01/05/21 Unknown Rx HYDROcodone/APAP 7.5-325 [[place] 1 each PO Q6H PRN #8 tablet 11/23/20 01/05/21 Unknown Rx 7.5-325 mg TAB] Insulin NPH/Regular [NovoLIN 70/30] 30 unit SUB-Q BIDDIAB 30 Days 11/23/20 01/05/21 Unknown Rx units Losartan [Cozaar] 50 mg PO QDAY #30 tablet 11/23/20 01/05/21 Unknown Rx NIFEdipine XL [Procardia Xl] 60 mg PO QDAY #30 tablet 11/23/20 01/05/21 Unknown Rx cloNIDine-TTS PATCH [Catapres-Tts 0.2 mg TD We@1000 #4 patch 11/23/20 01/05/21 Unknown Rx 0.2mg Patch] hydrALAZINE [Apresoline TAB] 100 mg PO TID #30 tab 11/23/20 01/05/21 Unknown Rx labetaloL [Labetalol 100mg TAB] 300 mg PO BID #60 tablet 11/23/20 01/05/21 Unk nown Rx Active Medications: Generic Name Dose Route Start Last Admin Trade Name Freq PRN Reason Stop Dose Admin Acetaminophen 650 mg 01/04/21 05:25 Acetaminophen 325 Mg Tab PO Q4H PRN Pain MILD(1-3)/Fever >100.5/CHOUDHARY Albuterol 2.5 mg 01/04/21 05:25 Albuterol 2.5 Mg/3 Ml Nebu IH Q3HRT PRN Shortness Of Breath Baclofen 10 mg 01/04/21 05:09 Baclofen 10 Mg Tab PO QHS PRN Muscle Spasm Clonidine HCl 0.2 mg 01/09/21 10:00 Clonidine Tts 0.2 Mg/24 Hr Patch TD We@1000 SHIRA Darunavir 800 mg 01/04/21 11:00 Darunavir 800 Mg Tab PO QDAY SHIRA Docusate Sodium 100 mg 01/04/21 10:00 01/06/21 10:09 Docusate Sodium 100 Mg Cap PO 100 mg BID SHIRA Administration Famotidine 10 mg 01/04/21 10:00 01/06/21 10:09 Famotidine 10 Mg Tab PO 10 mg BID SHIRA Administration Heparin Sodium (Porcine) 5,000 unit 01/04/21 10:00 01/06/21 10:08 Heparin 5,000 Unit/1 Ml Vial SUB-Q 5,000 unit BID SHIRA Administration Hydralazine HCl 100 mg 01/04/21 08:00 01/06/21 14:10 Hydralazine 100 Mg Tab PO 100 mg TID SHIRA Administration Sodium Chloride 100 mls @ 999 mls/hr 01/04/21 11:00 Nacl 0.9% IV TORY PRN Hypotension Sodium Chloride 100 mls @ 999 mls/hr 01/05/21 09:25 Nacl 0.9% IV TORY PRN Hypotension Insulin Glargine 10 units 01/04/21 08:00 01/06/21 10:08 Insulin Glargine 100 Units/Ml SUB-Q 10 units QAMDIAB SHIRA Administration Insulin Human Lispro 0 unit 01/04/21 07:30 01/06/21 12:43 Insulin Lispro 100 Unit/Ml SUB-Q 3 unit ACHS SHIRA Administration Protocol Labetalol HCl 100 mg 01/06/21 10:00 01/06/21 10:09 Labetalol 100 Mg Tab PO 100 mg BID SHIRA Administration Labetalol HCl 200 mg 01/06/21 10:00 01/06/21 10:08 Labetalol 200 Mg Tab PO 200 mg BID SHIRA Administration Losartan Potassium 50 mg 01/04/21 10:00 01/06/21 10:09 Losartan 50 Mg Tab PO 50 mg QDAY SHIRA Administration Miscellaneous Medication 1 tab 01/04/21 10:00 Dolutegravir/Rilpivirine [[place] 50-25 Mg Tablet] PO DAILY SHIRA Nifedipine 60 mg 01/04/21 10:00 01/06/21 10:09 Nifedipine Xl 60 Mg Tab PO 60 mg QDAY SHIRA Administration Ondansetron HCl 4 mg 01/04/21 05:25 Ondansetron 4 Mg/2 Ml Inj IV Q6H PRN Nausea And Vomiting Oxycodone/Acetaminophen 1 tab 01/04/21 05:25 01/06/21 10:11 Oxycodone /Acetaminophen 5-325mg Tab PO 1 tab Q6H PRN Administration Pain, Moderate (4-6) Ritonavir 100 mg 01/04/21 11:00 Ritonavir 100 Mg Tab PO QDAY SHIRA Sodium Chloride 10 ml 01/04/21 10:00 01/06/21 10:09 Sodium Chloride 0.9% 10 Ml Flush Syringe IV 10 ml BID SHIRA Administration Sodium Chloride 10 ml 01/04/21 05:25 Sodium Chloride 0.9% 10 Ml Flush Syringe IV PRN PRN LINE FLUSH
[2021-01-07] MEDS: oxyCODONE /ACETAMINOPHEN 5-325MG TAB PO PRN ×3 (00:41→18:19)
--- NOTE | 2021-01-07 07:42 | XRay Report ---
LUMBOSACRAL SPINE, 3 VIEWS INDICATION / CLINICAL INFORMATION: Pain after syncopal episode. COMPARISON: None available. FINDINGS: Vertebral body heights and disc spaces are well-preserved. Alignment is normal. No evidence of fractu re. No significant degenerative change. IMPRESSION: No significant osseous abnormality. Signer Name: Maria Teresa Lui MD Signed: 01/04/2021 4:50 AM Workstation Name: [employer]
--- NOTE | 2021-01-07 08:21 | Progress Note ---
Assessment and Plan - Patient Problems (1) Syncope Current Visit: Yes Status: Acute Qualifiers: Plan to address problem: Cardiac work-up ongoing. Continue cardiac monitoring. For stress test this morning per cardiology. (2) Type 2 diabetes mellitus with diabetic chronic kidney disease Current Visit: Yes Status: Acute Plan to address problem: Blood sugar management by primary attending. (3) Hypertensive chronic kidney disease with stage 5 chronic kidney disease or end stage renal disease Current Visit: No Status: Chronic Plan to address problem: BP still low. Decrease Labetalol to 200 mg bid. Follow-up blood pressure on adjusted medications. Observe for orthostasis (4) End stage renal disease Current Visit: Yes Status: Acute Plan to address problem: Hemodialysis today and then continue on a Thursday, and Thursday schedule. (5) HIV (human immunodeficiency virus infection) Current Visit: No Status: Chronic Qualifiers: HIV symptom status: unspecified Qualified Code(s): B20 - Human immunodeficiency virus [HIV] disease Plan to address problem: Continue antiretrovirals Subjective Date of service: 01/07/21 Principal diagnosis: ESRD, syncope Interval history: Patient seen lying in bed. He has no new complaints. [place] dizzy last night. ALso complains of insomnia. No chest pain or shortness of breath. No nausea or vomiting. Objective - Exam Narrative Exam: Young male lying in bed in no acute distress HEENT: NCAT, pink oral mucous membrane Neck: Supple, no venous distention CVS: S1S2 RRR with no murmur, rub or gallop Chest: Clear to auscultation Abdomen: Protuberant, soft, nontender, no organomegaly, bowel sounds are present Extremities: No edema Neuro: Awake, alert no focal deficits - Vital Signs Vital signs: Vital Signs - 12hr 01/06/21 01/07/21 01/07/21 23:57 00:00 04:00 Temperature 98.2 F 98.1 F Pulse Rate 87 94 H 97 H Respiratory 20 20 Rate Blood Pressure 106/53 117/73 O2 Sat by Pulse 94 95 Oximetry - Lab 01/04/21 03:23 01/05/21 04:20 Most recent lab results Calcium 8.6 mg/dL (8.4-10.2) 01/05/21 04:20 Magnesium 2.50 mg/dL (1.7-2.3) H 01/04/21 03:23 Medications & Allergies - Medications Allergies/Adverse Reactions: Allergies Penicillins Allergy (Verified 06/06/19 18:03) Hives tramadol Adverse Reaction (Verified 06/06/19 18:03) Vomiting Home Medications: Home Medications Medication Instructions Recorded Confirmed Last Taken Type Acetaminophen [Acetaminophen TAB] 650 mg PO Q4H PRN tablet 05/10/19 01/05/21 06/07/19 07:00 Rx Darunavir [Prezista] 800 mg PO QDAY tablet 05/10/19 01/05/21 11/18/20 Rx Ritonavir 100 mg PO QDAY #10 tab 05/10/19 01/05/21 11/18/20 Rx Dolutegravir/Rilpivirine [Juluca 1 tab PO DAILY 11/19/20 01/05/21 11/18/20 History 50-25 mg Tablet] Ferric Citrate (Nf) [Auryxia] 1 tab PO TID 11/19/20 01/05/21 11/18/20 History Baclofen [Lioresal] 10 mg PO QHS PRN #10 tablet 11/23/20 01/05/21 Unknown Rx HYDROcodone/APAP 7.5-325 [[place] 1 each PO Q6H PRN #8 tablet 11/23/20 01/05/21 Unknown Rx 7.5-325 mg TAB] Insulin NPH/Regular [NovoLIN 70/30] 30 unit SUB-Q BIDDIAB 30 Days 11/23/20 01/05/21 Unknown Rx units Losartan [Cozaar] 50 mg PO QDAY #30 tablet 11/23/20 01/05/21 Unknown Rx NIFEdipine XL [Procardia Xl] 60 mg PO QDAY #30 tablet 11/23/20 01/05/21 Unknown Rx cloNIDine-TTS PATCH [Catapres-Tts 0.2 mg TD We@1000 #4 patch 11/23/20 01/05/21 Unknown Rx 0.2mg Patch] hydrALAZINE [Apresoline TAB] 100 mg PO TID #30 tab 11/23/20 01/05/21 Unknown Rx labetaloL [Labetalol 100mg TAB] 300 mg PO BID #60 tablet 11/23/20 01/05/21 Unknown Rx Active Medications: Generic Name Dose Route Start Last Admin Trade Name Freq PRN Reason Stop Dose Admin Acetaminophen 650 mg 01/04/21 05:25 Acetaminophen 325 Mg Tab PO Q4H PRN Pain MILD(1-3)/Fever >100.5/CHOUDHARY Albuterol 2.5 mg 01/04/21 05:25 Albuterol 2.5 Mg/3 Ml Nebu IH Q3HRT PRN Shortness Of Breath Baclofen 10 mg 01/04/21 05:09 Baclofen 10 Mg Tab PO QHS PRN Muscle Spasm Clonidine HCl 0.2 mg 01/09/21 10:00 Clonidine Tts 0.2 Mg/24 Hr Patch TD We@1000 SHIRA Darunavir 800 mg 01/04/21 11:00 Darunavir 800 Mg Tab PO QDAY SHIRA Docusate Sodium 100 mg 01/04/21 10:00 01/06/21 21:39 Docusate Sodium 100 Mg Cap PO 100 mg BID SHIRA Administration Famotidine 10 mg 01/04/21 10:00 01/06/21 21:39 Famotidine 10 Mg Tab PO 10 mg BID SHIRA Administration Heparin Sodium (Porcine) 5,000 unit 01/04/21 10:00 01/06/21 21:38 Heparin 5,000 Unit/1 Ml Vial SUB-Q 5,000 unit BID SHIRA Administration Hydralazine HCl 100 mg 01/06/21 22:00 01/06/21 21:45 Hydralazine 100 Mg Tab PO Not Given BID SHIRA Sodium Chloride 100 mls @ 999 mls/hr 01/04/21 11:00 Nacl 0.9% IV TORY PRN Hypotension Sodium Chloride 100 mls @ 999 mls/hr 01/05/21 09:25 Nacl 0.9% IV TORY PRN Hypotension Insulin Glargine 10 units 01/04/21 08:00 01/06/21 10:08 Insulin Glargine 100 Units/Ml SUB-Q 10 units QAMDIAB SHIRA Administration Insulin Human Lispro 0 unit 01/04/21 07:30 01/06/21 21:45 Insulin Lispro 100 Unit/Ml SUB-Q 3 unit ACHS SHIRA Administration Protocol Labetalol HCl 100 mg 01/06/21 10:00 01/07/21 08:05 Labetalol 100 Mg Tab PO Not Given BID [facility] Labetalol HCl 200 mg 01/06/21 10:00 01/07/21 08:05 Labetalol 200 Mg Tab PO Not Given BID [facility] Losartan Potassium 50 mg 01/04/21 10:00 01/06/21 10:09 Losartan 50 Mg Tab PO 50 mg QDAY SHIRA Administration Miscellaneous Medication 1 tab 01/04/21 10:00 Dolutegravir/Rilpivirine [Juluca 50-25 Mg Tablet] PO DAILY SHIRA Nifedipine 60 mg 01/04/21 10:00 01/06/21 10:09 Nifedipine Xl 60 Mg Tab PO 60 mg QDAY SHIRA Administration Ondansetron HCl 4 mg 01/04/21 05:25 Ondansetron 4 Mg/2 Ml Inj IV Q6H PRN Nausea And Vomiting Oxycodone/Acetaminophen 1 tab 01/04/21 05:25 01/07/21 00:41 Oxycodone /Acetaminophen 5-325mg Tab PO 1 tab Q6H PRN Administration Pain, Moderate (4-6) Ritonavir 100 mg 01/04/21 11:00 Ritonavir 100 Mg Tab PO QDAY SHIRA Sodium Chloride 10 ml 01/04/21 10:00 01/07/21 08:05 Sodium Chloride 0.9% 10 Ml Flush Syringe IV Not Given BID SHIRA Sodium Chloride 10 ml 01/04/21 05:25 Sodium Chloride 0.9% 10 Ml Flush Syringe IV PRN PRN LINE FLUSH
--- NOTE | 2021-01-07 08:46 | Consultation ---
History of Present Illness Consult date: 01/07/21 Reason for Consult: recurrent Syncopy History of present illness: syncope History of present illness: 35-year-old male with history of HIV, uncontrolled hyper, insulin-dependent diabetes, migraines, gastroparesis, chronic pain, ESRD on HD who presents to [facility] with complaints of syncopal episode. Patient states he was sitting on the commode, had a bowel movement, and then stood up to wash his hands and had a syncopal episode. He was unsure how long he was unconscious. Denies head injury or trauma, but complains of back pain due to fall. He called 911 and he was transported to our facility for further evaluation and treatment. Additionally he complains of intermittent shortness of breath and palpitations x2 weeks. His dyspnea and palpitations are relieved with rest and aggravated with exertion. Since he has new complaint of dyspnea and palpitations, EKG unrevealing however will consult cardiology ([facility]) for further evaluation. Review of medical record shows patient was admitted in October with similar complaints of syncopal episodes. He complained of prodromal. Of right leg numbness and funny feeling followed by syncopal episode . At the time patient was found to be in DKA and it was thought that syncopal episodes were related to DKA. Imaging studies during admission were all negative. He was seen by cardiology with changes made to antihypertensive meds for optimization of BP. Denies nausea, vomiting, fever, headache, alterations in vision, abdominal pain, hematuria, melena, hematochezia, IV drug use, illicit drug use, smoking, recent stress/trauma, or recent sick contacts he is compalinig of recurrent episodes of tachycardia and at time feels dizzy after dialysis according to him his BP is runing on the low side latley he denied seizure or family hx of seizure , no tongue bitting or incontinence Past History Past Medical History: diabetes, dialysis (T//), ESRD, HIV/AIDS, hypertension, other (Migraines, gastroparesis, chronic pain) Past Surgical History: cholecystectomy, Other (Dialysis port in right chest. fistula in left arm) Social history: Lives alone, full code. denies: smoking, alcohol abuse, prescription drug abuse, IV drug use Family history: no significant family history Medications and Allergies Allergies Allergy/AdvReac Type Severity Reaction Status Date / Time Penicillins Allergy Hives Verified 06/06/19 18:03 tramadol AdvReac Vomiting Verified 06/06/19 18:03 Home Medications Medication Instructions Recorded Confirmed Last Taken Type Acetaminophen [Acetaminophen TAB] 650 mg PO Q4H PRN tablet 05/10/19 11/19/20 06/07/19 07:00 Rx Darunavir [Prezista] 800 mg PO QDAY tablet 05/10/19 11/19/20 11/18/20 Rx Ritonavir 100 mg PO QDAY #10 tab 05/10/19 11/19/20 11/18/20 Rx Dolutegravir/Rilpivirine [[place] 1 tab PO DAILY 11/19/20 11/19/20 11/18/20 History 50-25 mg Tablet] Ferric Citrate (Nf) [Auryxia] 1 tab PO TID 11/19/20 11/19/20 11/18/20 History Baclofen [Lioresal] 10 mg PO QHS PRN #10 tablet 11/23/20 Unknown Rx HYDROcodone/APAP 7.5-325 [[place] 1 each PO Q6H PRN #8 tablet 11/23/20 Unknown Rx 7.5-325 mg TAB] Insulin NPH/Regular [NovoLIN 70/30] 30 unit SUB-Q BIDDIAB 30 Days 11/23/20 Unknown Rx units Losartan [Cozaar] 50 mg PO QDAY #30 tablet 11/23/20 Unknown Rx NIFEdipine XL [Procardia Xl] 60 mg PO QDAY #30 tablet 11/23/20 Unknown Rx cloNIDine-TTS PATCH [Catapres-Tts 0.2 mg TD We@1000 #4 patch 11/23/20 Unknown Rx 0.2mg Patch] hydrALAZINE [Apresoline TAB] 100 mg PO TID #30 tab 11/23/20 Unknown Rx labetaloL [Labetalol 100mg TAB] 300 mg PO BID #60 tablet 11/23/20 Unknown Rx Active Meds: Active Medications Acetaminophen (Acetaminophen 325 Mg Tab) 650 mg PO Q4H PRN PRN Reason: Pain MILD(1-3)/Fever >100.5/CHOUDHARY Albuterol (Albuterol 2.5 Mg/3 Ml Nebu) 2.5 mg IH Q3HRT PRN PRN Reason: Shortness Of Breath Baclofen (Baclofen 10 Mg Tab) 10 mg PO QHS PRN PRN Reason: Muscle Spasm Clonidine HCl (Clonidine Tts 0.2 Mg/24 Hr Patch) 0.2 mg TD We@1000 [facility] Darunavir (Darunavir 800 Mg Tab) 800 mg PO QDAY [facility] Docusate Sodium (Docusate Sodium 100 Mg Cap) 100 mg PO BID [facility] Hydralazine HCl (Hydralazine 100 Mg Tab) 100 mg PO TID [facility] Insulin Glargine (Insulin Glargine 100 Units/Ml) 10 units SUB-Q QAMDIAB [facility] Insulin Human Lispro (Insulin Lispro 100 Unit/Ml) 0 unit SUB-Q ACHS [facility]; Protocol Miscellaneous Medication (Dolutegravir/Rilpivirine [Juluca 50-25 Mg Tablet]) 1 tab PO DAILY [facility] Nifedipine (Nifedipine Xl 60 Mg Tab) 60 mg PO QDAY [facility] Ondansetron HCl (Ondansetron 4 Mg/2 Ml Inj) 4 mg IV Q6H PRN PRN Reason: Nausea And Vomiting Oxycodone/Acetaminophen (Oxycodone /Acetaminophen 5-325mg Tab) 1 tab PO Q6H PRN PRN Reason: Pain, Moderate (4-6) Ritonavir (Ritonavir 100 Mg Tab) 100 mg PO QDAY [facility] Sodium Chloride (Sodium Chloride 0.9% 10 Ml Flush Syringe) 10 ml IV BID [facility] Sodium Chloride (Sodium Chloride 0.9% 10 Ml Flush Syringe) 10 ml IV PRN PRN PRN Reason: LINE FLUSH Review of Systems All systems: negative (As noted in HPI) Past History Past Medical History: diabetes, dialysis (T//), ESRD, HIV/AIDS, hypertension, other (Migraines, gastroparesis, chronic pain) Past Surgical History: cholecystectomy, Other (Dialysis port in right chest. fistula in left arm) Social history: Lives alone, full code. denies: smoking, alcohol abuse, prescription drug abuse, IV drug use Family history: no significant family history Medications and Allergies Allergies Allergy/AdvReac Type Severity Reaction Status Date / Time Penicillins Allergy Hives Verified 06/06/19 18:03 tramadol AdvReac Vomiting Verified 06/06/19 18:03 Home Medications Medication Instructions Recorded Confirmed Last Taken Type Acetaminophen [Acetaminophen TAB] 650 mg PO Q4H PRN tablet 05/10/19 01/05/21 06/07/19 07:00 Rx Darunavir [Prezista] 800 mg PO QDAY tablet 05/10/19 01/05/21 11/18/20 Rx Ritonavir 100 mg PO QDAY #10 tab 05/10/19 01/05/21 11/18/20 Rx Dolutegravir/Rilpivirine [[place] 1 tab PO DAILY 11/19/20 01/05/21 11/18/20 History 50-25 mg Tablet] Ferric Citrate (Nf) [Auryxia] 1 tab PO TID 11/19/20 01/05/21 11/18/20 History Baclofen [Lioresal] 10 mg PO QHS PRN #10 tablet 11/23/20 01/05/21 Unknown Rx HYDROcodone/APAP 7.5-325 [[place] 1 each PO Q6H PRN #8 tablet 11/23/20 01/05/21 Unknown Rx 7.5-325 mg TAB] Insulin NPH/Regular [NovoLIN 70/30] 30 unit SUB-Q BIDDIAB 30 Days 11/23/20 01/05/21 Unknown Rx units Losartan [Cozaar] 50 mg PO QDAY #30 tablet 11/23/20 01/05/21 Unknown Rx NIFEdipine XL [Procardia Xl] 60 mg PO QDAY #30 tablet 11/23/20 01/05/21 Unknown Rx cloNIDine-TTS PATCH [Catapres-Tts 0.2 mg TD We@1000 #4 patch 11/23/20 01/05/21 Unknown Rx 0.2mg Patch] hydrALAZINE [Apresoline TAB] 100 mg PO TID #30 tab 11/23/20 01/05/21 Unknown Rx labetaloL [Labetalol 100mg TAB] 300 mg PO BID #60 tablet 11/23/20 01/05/21 Unknown Rx Active Meds: Active Medications Acetaminophen (Acetaminophen 325 Mg Tab) 650 mg PO Q4H PRN PRN Reason: Pain MILD(1-3)/Fever >100.5/CHOUDHARY Albuterol (Albuterol 2.5 Mg/3 Ml Nebu) 2.5 mg IH Q3HRT PRN PRN Reason: Shortness Of Breath Baclofen (Baclofen 10 Mg Tab) 10 mg PO QHS PRN PRN Reason: Muscle Spasm Clonidine HCl (Clonidine Tts 0.2 Mg/24 Hr Patch) 0.2 mg TD We@1000 [facility] Darunavir (Darunavir 800 Mg Tab) 800 mg PO QDAY [facility] Docusate Sodium (Docusate Sodium 100 Mg Cap) 100 mg PO BID [facility] Last Admin: 01/06/21 21:39 Dose: 100 mg Documented by: Famotidine (Famotidine 10 Mg Tab) 10 mg PO BID [facility] Last Admin: 01/06/21 21:39 Dose: 10 mg Documented by: Heparin Sodium (Porcine) (Heparin 5,000 Unit/1 Ml Vial) 5,000 unit SUB-Q BID [facility] Last Admin: 01/06/21 21:38 Dose: 5,000 unit Documented by: Hydralazine HCl (Hydralazine 100 Mg Tab) 100 mg PO BID [facility] Last Admin: 01/06/21 21:45 Dose: Not Given Documented by: Sodium Chloride (Nacl 0.9%) 100 mls @ 999 mls/hr IV TORY PRN PRN Reason: Hypotension Sodium Chloride (Nacl 0.9%) 100 mls @ 999 mls/hr IV TORY PRN PRN Reason: Hypotension Insulin Glargine (Insulin Glargine 100 Units/Ml) 10 units SUB-Q QAMDIAB [facility] Last Admin: 01/06/21 10:08 Dose: 10 units Documented by: Insulin Human Lispro (Insulin Lispro 100 Unit/Ml) 0 unit SUB-Q [facility]; Protocol Last Admin: 01/06/21 21:45 Dose: 3 unit Documented by: Labetalol HCl (Labetalol 200 Mg Tab) 200 mg PO BID [facility] Last Admin: 01/07/21 08:05 Dose: Not Given Documented by: Losartan Potassium (Losartan 50 Mg Tab) 50 mg PO QDAY [facility] Last Admin: 01/06/21 10:09 Dose: 50 mg Documented by: Miscellaneous Medication (Dolutegravir/Rilpivirine [Juluca 50-25 Mg Tablet]) 1 tab PO DAILY [facility] Nifedipine (Nifedipine Xl 60 Mg Tab) 60 mg PO QDAY [facility] Last Admin: 01/06/21 10:09 Dose: 60 mg Documented by: Ondansetron HCl (Ondansetron 4 Mg/2 Ml Inj) 4 mg IV Q6H PRN PRN Reason: Nausea And Vomiting Oxycodone/Acetaminophen (Oxycodone /Acetaminophen 5-325mg Tab) 1 tab PO Q6H PRN PRN Reason: Pain, Moderate (4-6) Last Admin: 01/07/21 00:41 Dose: 1 tab Documented by: Ritonavir (Ritonavir 100 Mg Tab) 100 mg PO QDAY SHIRA Sodium Chloride (Sodium Chloride 0.9% 10 Ml Flush Syringe) 10 ml IV BID SHIRA Last Admin: 01/07/21 08:05 Dose: Not Given Documented by: Sodium Chloride (Sodium Chloride 0.9% 10 Ml Flush Syringe) 10 ml IV PRN PRN PRN Reason: LINE FLUSH Physical Examination - Vital Signs Vital Signs: Vital Signs Temp Pulse Resp BP Pulse Ox 98.7 F 104 H 24 206/125 96 01/04/21 02:52 01/04/21 02:52 01/04/21 02:52 01/04/21 02:52 01/04/21 02:52 - Constitutional General appearance: comfortable - EENT EENT: Present: PERRL, mucous membranes moist - Respiratory Respiratory: Present: lungs clear, normal breath sounds - Cardiovascular Cardiovascular: Present: normal S1, normal S2 Extremities: Present: no peripheral edema bilatateraly - Gastrointestinal Gastrointestinal: Present: normoactive bowel sounds - Integumentary Integumentary: Present: normal - Neurologic Cranial nerve examination: PERRL, EOMI Speech examination: intact Sensorimotor examination: intact Detailed motor examination: grossly full strength in Results - Laboratory Findings CBC and BMP: 01/04/21 03:23 01/05/21 04:20 Abnormal Lab Findings: Abnormal Labs 01/04/21 01/04/21 01/04/21 03:23 03:23 03:23 RBC 3.57 L Hgb 11.7 L Hct 33.4 L MCH 33 H MCHC 35 H [place] % (Auto) 8.4 H Seg Neutrophils % 74.5 H D-Dimer 501.95 H Sodium 136 L Potassium 3.5 L Chloride 94.6 L BUN 30 H Creatinine 5.1 H Glucose 192 H POC Glucose Hemoglobin A1c Magnesium 2.50 H CK-MB (CK-2) 5.0 H CK-MB (CK-2) Rel Index 5.3 H Troponin T 0.266 H* Triglycerides 210 H HDL Cholesterol 35 L Free T4 01/04/21 01/04/21 01/04/21 03:23 03:23 07:20 RBC Hgb Hct MCH MCHC [place] % (Auto) Seg Neutrophils % D-Dimer Sodium Potassium Chloride BUN Creatinine Glucose POC Glucose Hemoglobin A1c 6.8 H Magnesium CK-MB (CK-2) CK-MB (CK-2) Rel Index Troponin T 0.217 H* Triglycerides HDL Cholesterol Free T4 1.56 H 01/04/21 01/04/21 01/05/21 16:13 20:41 04:20 RBC Hgb Hct MCH MCHC [place] % (Auto) Seg Neutrophils % D-Dimer Sodium 135 L Potassium Chloride 97.5 L BUN 44 H Creatinine 7.0 H Glucose 149 H POC Glucose 257 H 231 H Hemoglobin A1c Magnesium CK-MB (CK-2) CK-MB (CK-2) Rel Index Troponin T Triglycerides HDL Cholesterol Free T4 01/05/21 01/05/21 01/05/21 08:06 11:38 21:02 RBC Hgb Hct MCH MCHC [place] % (Auto) Seg Neutrophils % D-Dimer Sodium Potassium Chloride BUN Creatinine Glucose POC Glucose 181 H 200 H 141 H Hemoglobin A1c Magnesium CK-MB (CK-2) CK-MB (CK-2) Rel Index Troponin T Triglycerides HDL Cholesterol Free T4 01/06/21 01/06/21 01/06/21 08:19 11:54 16:06 RBC Hgb Hct MCH MCHC [place] % (Auto) Seg Neutrophils % D-Dimer Sodium Potassium Chloride BUN Creatinine Glucose POC Glucose 178 H 233 H 158 H Hemoglobin A1c Magnesium CK-MB (CK-2) CK-MB (CK-2) Rel Index Troponin T Triglycerides HDL Cholesterol Free T4 01/06/21 21:21 RBC Hgb Hct MCH MCHC [place] % (Auto) Seg Neutrophils % D-Dimer Sodium Potassium Chloride BUN Creatinine Glucose POC Glucose 203 H Hemoglobin A1c Magnesium CK-MB (CK-2) CK-MB (CK-2) Rel Index Troponin T Triglycerides HDL Cholesterol Free T4 Assessment and Plan Assessment and Plan #Syncope -Reports syncopal episode x1 yesterday (01/03/2021) -Previously admitted in October of this year with complaints of syncopal episodes with right leg numbness predromal period; syncope was due to DKA at that time -Today CT head negative -Review of carotid Doppler on 11/19 shows less than 50% stenosis in both left and right carotid arteries -MRI on 11/19 for acute abnormalities -Echo on 11/18 shows normal left ventricular systolic function EF of 55 to 60%; with moderate to severe, concentric left ventricle hypertrophy consistent with his chronic uncontrolled hypertension. -Seen and evaluated by [facility], with changes to antihypertensive regimen for optimization of blood pressure -Initiate fall precautions -Neuro checks -EEG -Seizure precaution #Malignant hypertension -Blood pressure 193/113 on assessment -Reports that he stopped taking antihypertensives except for hydralazine due to medication overload -Monitor BP -Resume home hydralazine and nifedipine -Cardiology consulted -schadualed for stress test today -Consider traffic monitor specialist on D/C - Check for orthostatic changes #Elevated D-dimer -At 501.95 -VQ scan is negative #Complains of lower back pain -Endorses history of chronic pain -L-spine XR noted -Supportive care #ESRD -on HD T// -Last dialyzed on 01/03 -Renal dose all meds -Avoid nephrotoxic agents -Nephrology consulted for HD management #Elevated troponin -?? Likely due to renal cardiac disease -Trend troponin -EKG unrevealing for acute ischemic abnormalities #Insulin-dependent diabetes mellitus -POC BG monitoring -Schedule Lantus and SSI coverage prn -HgbA1C #6.8 # Hx of HIV DVT and GI PPX -On heparin and Pepcid PLAN 1- mantain on traffic monitor specialist 2- await cardiac work up 3- Doubt seizure 4- check for orthostatic chnages 5- Avoid extensive hemo Dialysis and Hypotension 6- Seizure precaution. 7- EEG will follow
[2021-01-07] MEDS: INSULIN GLARGINE 100 UNITS/ML SUB-Q SCH (11:59)
[2021-01-07] MEDS: DOCUSATE SODIUM 100 MG CAP PO SCH ×2 (12:00→21:29)
[2021-01-07] MEDS: FAMOTIDINE 10 MG TAB PO SCH ×2 (12:00→21:29)
[2021-01-07] MEDS: LOSARTAN 50 MG TAB PO SCH (12:00)
[2021-01-07] MEDS: HEPARIN 5,000 UNIT/1 ML VIAL SUB-Q SCH ×2 (12:01→21:30)
[2021-01-07] MEDS: hydrALAZINE 100 MG TAB PO SCH ×2 (12:01→21:30)
[2021-01-07] MEDS: INSULIN LISPRO 100 UNIT/ML SUB-Q SCH ×4 (12:01→21:30)
[2021-01-07] MEDS: NIFEdipine XL 60 MG TAB PO SCH (12:02)
--- NOTE | 2021-01-07 12:02 | Progress Note ---
Assessment and Plan - Patient Problems (1) Syncope Current Visit: Yes Status: Acute Qualifiers: Plan to address problem: Patient's echocardiogram done just last month showed left ventricular ejection fraction well preserved at 55 to 60%. He has been recommended for a Lexiscan thallium stress test for further evaluation of syncope and this will be ordered for tomorrow morning. Subjective Date of service: 01/07/21 Principal diagnosis: ESRD, syncope Interval history: Patient is comfortable, no cardiac complaints, no chest pain, no dizziness and no shortness of breath. Looks and feels well. He has been recommended for a Lexiscan thallium stress test. He reports that he had a previous negative Lexiscan stress test 2 years ago when he lived in [place]. Objective Vital Signs Temp Pulse Resp BP Pulse Ox 01/07/21 04:00 98.1 F 97 H 20 117/73 95 01/07/21 00:00 94 H 01/06/21 23:57 98.2 F 87 20 106/53 94 01/06/21 19:25 98.0 F 99 H 20 113/72 96 01/06/21 16:08 98.4 F 90 18 115/66 97 01/06/21 14:00 84 - Physical Examination General: No Apparent Distress HEENT: Positive: PERRL, Normocephaly Neck: Positive: neck supple, trachea midline Cardiac: Positive: Reg Rate and Rhythm Lungs: Positive: Decreased Breath Sounds Neuro: Positive: Grossly Intact Abdomen: Positive: Soft Skin: Positive: Clear Extremities: Absent: edema
[2021-01-08] MEDS: oxyCODONE /ACETAMINOPHEN 5-325MG TAB PO PRN ×4 (00:19→18:25)
[2021-01-08] MEDS ORDERED: REGADENOSON 0.4 MG/5 ML INJ IV ONE (07:26)
--- NOTE | 2021-01-08 11:01 | Progress Note ---
Assessment and Plan - Patient Problems (1) Syncope Current Visit: Yes Status: Acute Qualifiers: Plan to address problem: Cardiac work-up ongoing. Continue cardiac monitoring. Follow-up stress test result. Follow-up MRI of the brain (2) Type 2 diabetes mellitus with diabetic chronic kidney disease Current Visit: Yes Status: Acute Plan to address problem: Blood sugar management by primary attending. (3) Hypertensive chronic kidney disease with stage 5 chronic kidney disease or end stage renal disease Current Visit: No Status: Chronic Plan to address problem: BP has improved. Follow-up blood pressure on current medications. Observe for orthostasis (4) End stage renal disease Current Visit: Yes Status: Acute Plan to address problem: Hemodialysis today and then continue on a Thursday, and Thursday schedule. (5) HIV (human immunodeficiency virus infection) Current Visit: No Status: Chronic Qualifiers: HIV symptom status: unspecified Qualified Code(s): B20 - Human immunodeficiency virus [HIV] disease Plan to address problem: Continue antiretrovirals Subjective Date of service: 01/08/21 Principal diagnosis: ESRD, syncope Interval history: Patient seen lying in bed in the MRI suite. He has no new complaints. No chest pain or shortness of breath. No nausea or vomiting. Objective - Exam Narrative Exam: Young male lying in bed in no acute distress HEENT: NCAT, pink oral mucous membrane Neck: Supple, no venous distention CVS: S1S2 RRR with no murmur, rub or gallop Chest: Clear to auscultation Abdomen: Protuberant, soft, nontender, no organomegaly, bowel sounds are present Extremities: No edema Neuro: Awake, alert no focal deficits - Vital Signs Vital signs: Vital Signs - 12hr 01/07/21 01/08/21 01/08/21 23:23 03:25 04:46 Temperature 97.6 F 97.7 F Pulse Rate 89 89 87 Respiratory 20 20 Rate Blood Pressure 174/101 123/65 138/66 O2 Sat by Pulse 97 96 94 Oximetry 01/08/21 06:49 Temperature 97.4 F L Pulse Rate 89 Respiratory 20 Rate Blood Pressure 130/77 O2 Sat by Pulse 96 Oximetry - Lab 01/09/21 04:31 01/09/21 04:31 Most recent lab results Calcium 8.6 mg/dL (8.4-10.2) 01/05/21 04:20 Magnesium 2.50 mg/dL (1.7-2.3) H 01/04/21 03:23 Medications & Allergies - Medications Allergies/Adverse Reactions: Allergies Penicillins Allergy (Verified 06/06/19 18:03) Hives tramadol Adverse Reaction (Verified 06/06/19 18:03) Vomiting Home Medications: Home Medications Medication Instructions Recorded Confirmed Last Taken Type Acetaminophen [Acetaminophen TAB] 650 mg PO Q4H PRN tablet 05/10/19 01/05/21 06/07/19 07:00 Rx Darunavir [Prezista] 800 mg PO QDAY tablet 05/10/19 01/05/21 11/18/20 Rx Ritonavir 100 mg PO QDAY #10 tab 05/10/19 01/05/21 11/18/20 Rx Dolutegravir/Rilpivirine [Juluca 1 tab PO DAILY 11/19/20 01/05/21 11/18/20 History 50-25 mg Tablet] Ferric Citrate (Nf) [Auryxia] 1 tab PO TID 11/19/20 01/05/21 11/18/20 History Baclofen [Lioresal] 10 mg PO QHS PRN #10 tablet 11/23/20 01/05/21 Unknown Rx HYDROcodone/APAP 7.5-325 [Jerome 1 each PO Q6H PRN #8 tablet 11/23/20 01/05/21 Unknown Rx 7.5-325 mg TAB] Insulin NPH/Regular [NovoLIN 70/30] 30 unit SUB-Q BIDDIAB 30 Days 11/23/20 01/05/21 Unknown Rx units Losartan [Cozaar] 50 mg PO QDAY #30 tablet 11/23/20 01/05/21 Unknown Rx NIFEdipine XL [Procardia Xl] 60 mg PO QDAY #30 tablet 11/23/20 01/05/21 Unknown Rx cloNIDine-TTS PATCH [Catapres-Tts 0.2 mg TD We@1000 #4 patch 11/23/20 01/05/21 Unknown Rx 0.2mg Patch] hydrALAZINE [Apresoline TAB] 100 mg PO TID #30 tab 11/23/20 01/05/21 Unknown Rx labetaloL [Labetalol 100mg TAB] 300 mg PO BID #60 tablet 11/23/20 01/05/21 Unknown Rx Active Medications: Generic Name Dose Route Start Last Admin Trade Name Freq PRN Reason Stop Dose Admin Acetaminophen 650 mg 01/04/21 05:25 Acetaminophen 325 Mg Tab PO Q4H PRN Pain MILD(1-3)/Fever >100.5/CHOUDHARY Albuterol 2.5 mg 01/04/21 05:25 Albuterol 2.5 Mg/3 Ml Nebu IH Q3HRT PRN Shortness Of Breath Baclofen 10 mg 01/04/21 05:09 Baclofen 10 Mg Tab PO QHS PRN Muscle Spasm Clonidine HCl 0.2 mg 01/09/21 10:00 Clonidine Tts 0.2 Mg/24 Hr Patch TD We@1000 SHIRA Darunavir 800 mg 01/04/21 11:00 Darunavir 800 Mg Tab PO QDAY SHIRA Docusate Sodium 100 mg 01/04/21 10:00 01/07/21 21:29 Docusate Sodium 100 Mg Cap PO 100 mg BID SHIRA Administration Famotidine 10 mg 01/04/21 10:00 01/07/21 21:29 Famotidine 10 Mg Tab PO 10 mg BID SHIRA Administration Heparin Sodium (Porcine) 5,000 unit 01/04/21 10:00 01/07/21 21:30 Heparin 5,000 Unit/1 Ml Vial SUB-Q 5,000 unit BID SHIRA Administration Hydralazine HCl 100 mg 01/06/21 22:00 01/07/21 21:30 Hydralazine 100 Mg Tab PO 100 mg BID SHIRA Administration Sodium Chloride 100 mls @ 999 mls/hr 01/05/21 09:25 Nacl 0.9% IV TORY PRN Hypotension Insulin Glargine 10 units 01/04/21 08:00 01/07/21 11:59 Insulin Glargine 100 Units/Ml SUB-Q 10 units QAMDIAB SHIRA Administration Insulin Human Lispro 0 unit 01/04/21 07:30 01/07/21 21:30 Insulin Lispro 100 Unit/Ml SUB-Q 2 unit ACHS SHIRA Administration Protocol Labetalol HCl 200 mg 01/06/21 10:00 01/07/21 21:29 Labetalol 200 Mg Tab PO 200 mg BID SHIRA Administration Losartan Potassium 50 mg 01/04/21 10:00 01/07/21 12:00 Losartan 50 Mg Tab PO 50 mg QDAY SHIRA Administration Miscellaneous Medication 1 tab 01/04/21 10:00 Dolutegravir/Rilpivirine [Juluca 50-25 Mg Tablet] PO DAILY SHIRA Nifedipine 60 mg 01/04/21 10:00 01/07/21 12:02 Nifedipine Xl 60 Mg Tab PO Not Given QDAY SHIRA Ondansetron HCl 4 mg 01/04/21 05:25 Ondansetron 4 Mg/2 Ml Inj IV Q6H PRN Nausea And Vomiting Oxycodone/Acetaminophen 1 tab 01/04/21 05:25 01/08/21 06:37 Oxycodone /Acetaminophen 5-325mg Tab PO 1 tab Q6H PRN Administration Pain, Moderate (4-6) Ritonavir 100 mg 01/04/21 11:00 Ritonavir 100 Mg Tab PO QDAY SHIRA Sodium Chloride 10 ml 01/04/21 10:00 01/07/21 21:30 Sodium Chloride 0.9% 10 Ml Flush Syringe IV 10 ml BID SHIRA Administration Sodium Chloride 10 ml 01/04/21 05:25 Sodium Chloride 0.9% 10 Ml Flush Syringe IV PRN PRN LINE FLUSH
[2021-01-08] MEDS: DOCUSATE SODIUM 100 MG CAP PO SCH ×2 (11:12→21:25)
[2021-01-08] MEDS: INSULIN LISPRO 100 UNIT/ML SUB-Q SCH ×4 (11:12→21:23)
[2021-01-08] MEDS: HEPARIN 5,000 UNIT/1 ML VIAL SUB-Q SCH ×2 (11:12→21:25)
[2021-01-08] MEDS: FAMOTIDINE 10 MG TAB PO SCH ×2 (11:13→21:24)
--- NOTE | 2021-01-08 11:34 | Event Note ---
Date: 01/08/21 Patient completed a Lexiscan stress test today, final myocardial perfusion images are pending.
--- NOTE | 2021-01-08 12:13 | Progress Note ---
Assessment and Plan Assessment and Plan #Syncope -Reports syncopal episode x1 yesterday (01/03/2021) -Previously admitted in October of this year with complaints of syncopal episodes with right leg numbness predromal period; syncope was due to DKA at that time -Today CT head negative -Review of carotid Doppler on 11/19 shows less than 50% stenosis in both left and right carotid arteries -Echo on 11/18 shows normal left ventricular systolic function EF of 55 to 60%; with moderate to severe, concentric left ventricle hypertrophy consistent with his chronic uncontrolled hypertension. -Seen and evaluated by [facility], with changes to antihypertensive regimen for optimization of blood pressure -Initiate fall precautions -Neuro checks -EEG diffuse slowing -- MRI done will review once available -Seizure precaution -Need to check for orthostatic changes with HR #Malignant hypertension -Blood pressure 193/113 on assessment -Reports that he stopped taking antihypertensives except for hydralazine due to medication overload -Monitor BP -Resume home hydralazine and nifedipine -Cardiology consulted -schadualed for stress test today -Consider geometry teacher on D/C - Check for orthostatic changes #Elevated D-dimer -At 501.95 -VQ scan is negative #Complains of lower back pain -Endorses history of chronic pain -L-spine XR noted -Supportive care #ESRD -on HD T// -Last dialyzed on 01/03 -Renal dose all meds -Avoid nephrotoxic agents -Nephrology consulted for HD management #Elevated troponin -?? Likely due to renal cardiac disease -Trend troponin -EKG unrevealing for acute ischemic abnormalities #Insulin-dependent diabetes mellitus -POC BG monitoring -Schedule Lantus and SSI coverage prn -HgbA1C #6.8 # Hx of HIV DVT and GI PPX -On heparin and Pepcid PLAN 1- mantain on geometry teacher 2- await cardiac work up 3- Doubt seizure 4- check for orthostatic chnages Not done 5- Avoid extensive hemo Dialysis and Hypotension 6- Seizure precaution. 7- EEG diffuse slowing 8- MRI brain to review will follow Subjective Date of service: 01/08/21 Principal diagnosis: ESRD, syncope Interval history: doing well had lexiscan today complain of feeling dizzy with standing up No orthost. vital done !!! EEG diffuse slowing will get MRI brain Objective - Vital Sign Vital Signs - 12hr 01/08/21 01/08/21 01/08/21 03:25 04:46 06:49 Temperature 97.7 F 97.4 F L Pulse Rate 89 87 89 Respiratory 20 20 Rate Blood Pressure 123/65 138/66 130/77 O2 Sat by Pulse 96 94 96 Oximetry - General Apperance Constitutional: comfortable - EENT EENT: PERRL, mucous membranes moist - Respiratory Respiratory: chest non-tender, lungs clear - Cardiovascular Cardiovascular: normal S1, normal S2 Extremities: no peripheral edema bilat - Gastrointestinal Gastrointestinal: normoactive bowel sounds - Integumentary Integumentary: normal - Neurologic Cranial nerve examination: intact Speech examination: intact Detailed motor examination: grossly full strength in - Laboratory Findings CBC and BMP: 01/04/21 03:23 01/05/21 04:20 Abnormal Lab Findings: Abnormal Labs 01/04/21 01/04/21 01/04/21 03:23 03:23 03:23 RBC 3.57 L Hgb 11.7 L Hct 33.4 L MCH 33 H MCHC 35 H Anson % (Auto) 8.4 H Seg Neutrophils % 74.5 H D-Dimer 501.95 H Sodium 136 L Potassium 3.5 L Chloride 94.6 L BUN 30 H Creatinine 5.1 H Glucose 192 H POC Glucose Hemoglobin A1c Magnesium 2.50 H CK-MB (CK-2) 5.0 H CK-MB (CK-2) Rel Index 5.3 H Troponin T 0.266 H* Triglycerides 210 H HDL Cholesterol 35 L Free T4 01/04/21 01/04/21 01/04/21 03:23 03:23 07:20 RBC Hgb Hct MCH MCHC Anson % (Auto) Seg Neutrophils % D-Dimer Sodium Potassium Chloride BUN Creatinine Glucose POC Glucose Hemoglobin A1c 6.8 H Magnesium CK-MB (CK-2) CK-MB (CK-2) Rel Index Troponin T 0.217 H* Triglycerides HDL Cholesterol Free T4 1.56 H 01/04/21 01/04/21 01/05/21 16:13 20:41 04:20 RBC Hgb Hct MCH MCHC Anson % (Auto) Seg Neutrophils % D-Dimer Sodium 135 L Potassium Chloride 97.5 L BUN 44 H Creatinine 7.0 H Glucose 149 H POC Glucose 257 H 231 H Hemoglobin A1c Magnesium CK-MB (CK-2) CK-MB (CK-2) Rel Index Troponin T Triglycerides HDL Cholesterol Free T4 01/05/21 01/05/21 01/05/21 08:06 11:38 21:02 RBC Hgb Hct MCH MCHC Anson % (Auto) Seg Neutrophils % D-Dimer Sodium Potassium Chloride BUN Creatinine Glucose POC Glucose 181 H 200 H 141 H Hemoglobin A1c Magnesium CK-MB (CK-2) CK-MB (CK-2) Rel Index Troponin T Triglycerides HDL Cholesterol Free T4 01/06/21 01/06/21 01/06/21 08:19 11:54 16:06 RBC Hgb Hct MCH MCHC Anson % (Auto) Seg Neutrophils % D-Dimer Sodium Potassium Chloride BUN Creatinine Glucose POC Glucose 178 H 233 H 158 H Hemoglobin A1c Magnesium CK-MB (CK-2) CK-MB (CK-2) Rel Index Troponin T Triglycerides HDL Cholesterol Free T4 01/06/21 01/07/21 01/07/21 21:21 07:18 11:56 RBC Hgb Hct MCH MCHC Anson % (Auto) Seg Neutrophils % D-Dimer Sodium Potassium Chloride BUN Creatinine Glucose POC Glucose 203 H 199 H 158 H Hemoglobin A1c Magnesium CK-MB (CK-2) CK-MB (CK-2) Rel Index Troponin T Triglycerides HDL Cholesterol Free T4 01/07/21 01/07/21 01/08/21 16:28 20:29 07:17 RBC Hgb Hct MCH MCHC Anson % (Auto) Seg Neutrophils % D-Dimer Sodium Potassium Chloride BUN Creatinine Glucose POC Glucose 143 H 171 H 140 H Hemoglobin A1c Magnesium CK-MB (CK-2) CK-MB (CK-2) Rel Index Troponin T Triglycerides HDL Cholesterol Free T4 01/08/21 11:59 RBC Hgb Hct MCH MCHC Anson % (Auto) Seg Neutrophils % D-Dimer Sodium Potassium Chloride BUN Creatinine Glucose POC Glucose 174 H Hemoglobin A1c Magnesium CK-MB (CK-2) CK-MB (CK-2) Rel Index Troponin T Triglycerides HDL Cholesterol Free T4
[2021-01-08] MEDS: LOSARTAN 50 MG TAB PO SCH (12:31)
[2021-01-08] MEDS: NIFEdipine XL 60 MG TAB PO SCH (12:31)
[2021-01-08] MEDS: INSULIN GLARGINE 100 UNITS/ML SUB-Q SCH (12:31)
[2021-01-08] MEDS: hydrALAZINE 100 MG TAB PO SCH ×2 (12:32→21:25)
--- NOTE | 2021-01-08 14:05 | Magnetic Resonance Report ---
MRI BRAIN 01/08/2021 INDICATION / CLINICAL INFORMATION: SYNCOPE. TECHNIQUE: Multiplanar, multisequence MR images of the brain were obtained. COMPARISON: MR brain 11/19/2020 FINDINGS: BRAIN / INTRACRANIAL CONTENTS: Unenhanced and enhanced MR images of the brain were obtained and zurdo red to the recent prior exam from 11/19/2020. There is a 1 cm focus of restricted diffusion present in the right anterior temporal lobe white matte r, best seen on diffusion-weighted image 15-16. This is associated with some decreased ADC signal, an d would be compatible with a small focal area of acute or recent ischemic injury. This was not presen t at the time the prior exam. No other areas of restricted diffusion are identified. Images of the brain are otherwise unremarkable, with no evidence of hemorrhage or mass. Ventricles an d sulci remain normal in size. Postcontrast images demonstrate no abnormal contrast enhancement. EXTRACRANIAL: Unremarkable CRANIOCERVICAL JUNCTION: No significant abnormality. VASCULAR FLOW-VOIDS: No significant abnormality. IMPRESSION: 1 cm focal area of restricted diffusion in the right anterior temporal lobe white matter, consistent with recent or acute ischemic injury. Otherwise negative exam. Signer Name: Francis Gutierrez MD Signed: 01/08/2021 2:01 PM Workstation Name: [id number]
[2021-01-08] MEDS: EPOETIN ALFA-EPBX 10,000 UNIT/1 ML VIAL IV PRN (15:07)
[2021-01-08] MEDS: ONDANSETRON 4 MG/2 ML INJ IV PRN (15:07)
--- NOTE | 2021-01-08 16:23 | Discharge Summary ---
Providers - Providers Date of Admission: 01/06/21 09:05 Date of discharge: 01/09/21 Attending physician: OPAL FRANKS 01/04/21 05:13 Consult to Physician [CONS] Routine Comment: Consulting Provider: TIMOTEO SABA Physician Instructions: Reason For Exam: HD mgmt (t/th/s) 01/04/21 05:17 Consult to Physician [CONS] Routine Comment: Consulting Provider: SONALI HUTCHISON Physician Instructions: Reason For Exam: syncope, neuro deficits 01/04/21 05:26 Occupational Therapy Evaluate and Treat [CONS] Routine Comment: Reason For Exam: syncope, neuro deficits Physical Therapy Evaluation and Treat [CONS] Routine Comment: Reason For Exam: syncope, neuro deficits 01/04/21 06:08 Consult to Physician [CONS] Routine Comment: Consulting Provider: VERNON REDDY Physician Instructions: Reason For Exam: Palpitations,tachycardia,exertional dyspnea,est pt 01/05/21 15:19 Occupational Therapy Evaluate and Treat [CONS] Routine Comment: Reason For Exam: Outpatient OT 01/05/21 15:30 Physical Therapy Evaluation and Treat [CONS] Routine Comment: Reason For Exam: Outpatient PT Primary care physician: [employer] Hospitalization Condition: Fair Pertinent studies: Neck MRA and head MRA No occlusion/or other significant abnormality of the major head and neck vasculature significant stenosis MRI brain Right temporal lobe infarct--small in size and acute Lexiscan No reversible ischemia Hospital course: Subjective Date of service: 01/09/21 Principal diagnosis: ESRD, syncope Interval history: 35-year-old male with history of HIV, uncontrolled hyper, insulin-dependent diabetes, migraines, gastroparesis, chronic pain, ESRD on HD who presents to [facility] with complaints of syncopal episode. Patient states he was sitting on the commode, had a bowel movement, and then stood up to wash his hands and had a syncopal episode. He was unsure how long he was unconscious. Denies head injury or trauma, but complains of back pain due to fall. He called 911 and he was transported to our facility for further evaluation and treatment. Additionally he complains of intermittent shortness of breath and palpitations x2 weeks. His dyspnea and palpitations are relieved with rest and aggravated with exertion. Since he has new complaint of dyspnea and palpitations, EKG unrevealing however will consult cardiology ([facility]) for further evaluation. Review of medical record shows patient was admitted in October with similar complaints of syncopal episodes. He complained of prodromal. Of right leg numbness followed by syncopal episode. At the time patient was found to be in DKA and it was thought that syncopal episodes were related to DKA. Imaging studies during admission were all negative. He was seen by cardiology with changes made to antihypertensive meds for optimization of BP. Denies nausea, vomiting, fever, headache, alterations in vision, abdominal pain, hematuria, melena, hematochezia, IV drug use, illicit drug use, smoking, recent stress/trauma, or recent sick contacts 01/09/2021 Recurrent syncope secondary to acute CVA and orthostatic hypotension. Compression stockings Less fluid exchange and hemodialysis. Assessment and Plan - Patient Problems (1) Acute CVA (cerebrovascular accident) Current Visit: Yes Status: Acute Plan to address problem: 1 cm focus of restricted diffusion present in the right anterior temporal lobe white matter, best seen on diffusion weighted image 15-16. This is associated with some decreased ADC signal. Compatible with a small focal area of acute or recent ischemic injury. Patient with no focal deficits. Neurology consult requested. Patient may have syncopized secondary to acute cerebral infarct. We will discharge the patient on aspirin and Plavix (2) Hypertensive emergency Current Visit: Yes Status: Acute Plan to address problem: Improved (3) End stage renal disease Current Visit: Yes Status: Chronic Plan to address problem: Continue hemodialysis. (4) Hypertension Current Visit: Yes Status: Chronic Qualifiers: Hypertension type: essential hypertension Qualified Code(s): I10 - Essential (primary) hypertension Plan to address problem: Continue antihypertensives. Adjust blood pressure medications. (5) IDDM (insulin dependent diabetes mellitus) Current Visit: Yes Status: Acute Plan to address problem: Continue insulin and coverage. Adjust insulin dosage. (6) HIV (human immunodeficiency virus infection) Current Visit: Yes Status: Chronic Qualifiers: HIV symptom status: asymptomatic, with no history of HIV-related illness Qualified Code(s): Z21 - Asymptomatic human immunodeficiency virus [HIV] infection status Plan to address problem: Continue antiretrovirals. (7) DVT prophylaxis Current Visit: Yes Status: Acute Plan to address problem: On heparin and GI prophylaxis Disposition: TO HOME OR SELFCARE Final Discharge Diagnosis (Prints w/discharge instructions): Acute CVA. Recurrent syncope. Hypertensive emergency. End-stage renal disease on hemodialysis. HIV status Time spent for discharge: 35 minutes - Discharge Diagnoses (1) Acute CVA (cerebrovascular accident) Status: Acute (2) Syncope Status: Acute Qualifiers: (3) Hypertensive emergency Status: Acute (4) IDDM (insulin dependent diabetes mellitus) Status: Acute (5) HIV (human immunodeficiency virus infection) Status: Chronic Qualifiers: HIV symptom status: asymptomatic, with no history of HIV-related illness Qualified Code(s): Z21 - Asymptomatic human immunodeficiency virus [HIV] infection status (6) CKD (chronic kidney disease) requiring chronic dialysis Status: Acute Core Measure Documentation - Palliative Care Palliative Care/ Comfort Measures: Not Applicable - Core Measures Any of the following diagnoses?: stroke - Stroke Discharge Requirements Statin for LDL = or >70 mg/dl on DC: Yes Anticoag for atrial fib/atrial flutter: Yes Antithrombotic for ischemic stroke: Yes Exam - Constitutional Vitals: Temp Pulse Resp BP Pulse Ox 98.3 F 81 18 110/54 96 01/08/21 14:20 01/08/21 16:00 01/08/21 14:20 01/08/21 16:00 01/08/21 06:49 General appearance: Present: no acute distress, well-nourished - EENT Eyes: Present: PERRL ENT: hearing intact, clear oral mucosa - Neck Neck: Present: supple, normal ROM - Respiratory Respiratory effort: normal Respiratory: bilateral: CTA - Cardiovascular Heart rate: 78 Rhythm: regular Heart Sounds: Present: S1 & S2. Absent: rub, click - Extremities Extremities: no ischemia, pulses intact, pulses symmetrical, No edema Peripheral Pulses: within normal limits - Abdominal General gastrointestinal: Present: soft, non-tender, non-distended, normal bowel sounds Male genitourinary: Present: normal - Rectal Rectal Exam: deferred - Integumentary Integumentary: Present: clear, warm, dry - Musculoskeletal Musculoskeletal: gait normal, strength equal bilaterally - Psychiatric Psychiatric: appropriate mood/affect, intact judgment & insight - Neurologic Neurologic: CNII-XII intact, moves all extremities - Allied Health Allied health notes reviewed: nursing, case management Plan Activity: no restrictions Diet: renal Plan of Treatment: Call [facility] on Thursday, January 07, 2021 or Friday, January 08, 2021 (depending on discharge date), at [phone] to schedule appointments for outpatient PT and OT. Follow up with: DEANNE NORRIS MD [Primary Care Provider] - 3-5 Days JENNIFER VASQUEZ MD [Staff Physician] - 7 Days
--- NOTE | 2021-01-08 19:47 | Progress Note ---
Assessment and Plan - Patient Problems (1) Acute CVA (cerebrovascular accident) Current Visit: Yes Status: Acute Plan to address problem: 1 cm focus of restricted diffusion present in the right anterior temporal lobe white matter, best seen on diffusion weighted image 15-16. This is associated with some decreased ADC signal. Compatible with a small focal area of acute or recent ischemic injury. Patient with no focal deficits. Neurology consult requested. Patient may have syncopized secondary to acute cerebral infarct. (2) Hypertensive emergency Current Visit: Yes Status: Acute Plan to address problem: Improved (3) End stage renal disease Current Visit: Yes Status: Chronic Plan to address problem: Continue hemodialysis. (4) Hypertension Current Visit: Yes Status: Chronic Qualifiers: Hypertension type: essential hypertension Qualified Code(s): I10 - Essential (primary) hypertension Plan to address problem: Continue antihypertensives. Adjust blood pressure medications. (5) IDDM (insulin dependent diabetes mellitus) Current Visit: Yes Status: Acute Plan to address problem: Continue insulin and coverage. Adjust insulin dosage. (6) HIV (human immunodeficiency virus infection) Current Visit: Yes Status: Chronic Qualifiers: HIV symptom status: asymptomatic, with no history of HIV-related illness Qualified Code(s): Z21 - Asymptomatic human immunodeficiency virus [HIV] infection status Plan to address problem: Continue antiretrovirals. (7) DVT prophylaxis Current Visit: Yes Status: Acute Plan to address problem: On heparin and GI prophylaxis Subjective Date of service: 01/08/21 Principal diagnosis: ESRD, syncope Interval history: 35-year-old male with history of HIV, uncontrolled hyper, insulin-dependent diabetes, migraines, gastroparesis, chronic pain, ESRD on HD who presents to [facility] ED with complaints of syncopal episode. Patient states he was sitting on the commode, had a bowel movement, and then stood up to wash his hands and had a syncopal episode. He was unsure how long he was unconscious. Denies head injury or trauma, but complains of back pain due to fall. He called 911 and he was transported to our facility for further evaluation and treatment. Additionally he complains of intermittent shortness of breath and palpitations x2 weeks. His dyspnea and palpitations are relieved with rest and aggravated with exertion. Since he has new complaint of dyspnea and palpitations, EKG unrevealing however will consult cardiology ([facility]) for further evaluation. Review of medical record shows patient was admitted in October with similar complaints of syncopal episodes. He complained of prodromal. Of right leg numbness followed by syncopal episode. At the time patient was found to be in DKA and it was thought that syncopal episodes were related to DKA. Imaging studies during admission were all negative. He was seen by cardiology with changes made to antihypertensive meds for optimization of BP. Denies nausea, vomiting, fever, headache, alterations in vision, abdominal pain, hematuria, melena, hematochezia, IV drug use, illicit drug use, smoking, recent stress/trauma, or recent sick contacts Objective - Constitutional Vitals: Vital Signs - 12hr 01/08/21 01/08/21 01/08/21 14:20 14:26 14:30 Temperature 98.3 F Pulse Rate 78 80 80 Respiratory 18 Rate Blood Pressure 129/69 120/58 108/56 01/08/21 01/08/21 01/08/21 14:45 15:00 15:15 Temperature Pulse Rate 82 81 78 Respiratory Rate Blood Pressure 92/41 106/40 107/43 01/08/21 01/08/21 01/08/21 15:30 15:45 16:00 Temperature Pulse Rate 82 82 81 Respiratory Rate Blood Pressure 99/52 78/35 110/54 01/08/21 01/08/21 01/08/21 16:15 16:30 16:45 Temperature Pulse Rate 81 79 82 Respiratory Rate Blood Pressure 92/44 117/50 111/56 01/08/21 01/08/21 01/08/21 17:00 17:15 17:21 Temperature Pulse Rate 81 79 80 Respiratory Rate Blood Pressure 105/53 114/56 112/55 01/08/21 17:35 Temperature 98.3 F Pulse Rate 78 Respiratory 18 Rate Blood Pressure 128/64 General appearance: Present: no acute distress, well-nourished - EENT Eyes: PERRL, EOM intact ENT: hearing intact, clear oral mucosa Ears: bilateral: normal - Neck Neck: supple, normal ROM - Respiratory Respiratory effort: normal Respiratory: bilateral: CTA - Breasts Breasts: normal - Cardiovascular Rhythm: regular Heart Sounds: Present: S1 & S2. Absent: gallop, rub Extremities: pulses intact, No edema, normal color, Full ROM - Gastrointestinal General gastrointestinal: Present: soft, non-tender, non-distended, normal bowel sounds - Genitourinary Male genitourinary: normal - Integumentary Integumentary: clear, warm, dry - Musculoskeletal Musculoskeletal: 1, strength equal bilaterally - Neurologic Neurologic: moves all extremities - Psychiatric Psychiatric: memory intact, appropriate mood/affect, intact judgment & insight - Allied health notes Allied health notes reviewed: nursing, case management - Labs CBC & Chem 7: 01/09/21 04:31 01/09/21 04:31 Labs: Abnormal lab results 01/07/21 01/08/21 01/08/21 Range/Units 20:29 07:17 11:59 POC Glucose 171 H 140 H 174 H (70-105) mg/dL Brain MRI 1 cm focal area of restricted diffusion in the right anterior temporal lobe wh ite matter consistent with recent or acute ischemic injury - Imaging and cardiology MRI - head: report reviewed HEART Score - HEART Score Troponin: Troponin T 0.217 ng/mL (0.00-0.029) H* 01/04/21 07:20
[2021-01-09] MEDS: oxyCODONE /ACETAMINOPHEN 5-325MG TAB PO PRN ×4 (00:17→17:56)
[2021-01-09 05:04] LABS: Basophils # (Auto) 0.1 K/mm3 (0.0-0.1); Basophils % (Auto) 0.9 % (0.0-1.8); Eosinophils # (Auto) 0.1 K/mm3 (0.0-0.4); Eosinophils % (Auto) 2.4 % (0.0-4.3); Hemoglobin 11.9 gm/dl (11.8-15.2); Lymphocytes # (Auto) 1.3 K/mm3 (1.2-5.4); Lymphocytes % (Auto) 21.4 % (13.4-35.0); Mean Corpuscular HGB Conc 34 % (32-34); Mean Corpuscular Volume 93 fl (84-94); Monocytes # (Auto) 0.4 K/mm3 (0.0-0.8); Monocytes % (Auto) 7.5 % (0.0-7.3); Platelet Count 246 K/mm3 (140-440); Red Blood Count 3.75 M/mm3 (3.65-5.03); Red Cell Distribution Width 14.1 % (13.2-15.2)
[2021-01-09 05:31] LABS: Albumin 3.9 g/dL (3.9-5); Calcium 8.6 mg/dL (8.4-10.2)
--- NOTE | 2021-01-09 09:22 | Progress Note ---
Assessment and Plan Recurrent syncope Lung scan reports low probability for PE. MPI: No reversible ischemia Dizziness Abnormal brain MPI; as per neurology Elevated troponin, nonspecific in the setting of renal disease Hypertension, controlled Diabetes End-stage renal disease on hemodialysis HIV 10/2020 Echocardiogram showed normal left ventricular systolic function with ejection fraction 55-60%, with moderate to severe, concentric left ventricle hypertrophy consistent with his chronic uncontrolled hypertension. Conservative cardiac management. Subjective Date of service: 01/09/21 Principal diagnosis: ESRD, syncope Interval history: Patient is resting in bed comfortably. Reports dizziness when standing. Objective Vital Signs Temp Pulse Resp BP BP Pulse Ox 01/09/21 07:42 99.1 F 89 20 123/75 95 01/09/21 04:22 98.9 F 84 18 135/74 95 01/08/21 23:23 97.1 F L 79 18 132/69 95 01/08/21 22:00 85 01/08/21 21:24 91 H 131/81 01/08/21 19:56 98.4 F 91 H 18 131/81 95 01/08/21 17:35 98.3 F 78 18 128/64 01/08/21 17:21 80 112/55 01/08/21 17:15 79 114/56 01/08/21 17:00 81 105/53 01/08/21 16:45 82 111/56 01/08/21 16:30 79 117/50 01/08/21 16:15 81 92/44 01/08/21 16:00 81 110/54 01/08/21 15:45 82 78/35 01/08/21 15:30 82 99/52 01/08/21 15:15 78 107/43 01/08/21 15:00 81 106/40 01/08/21 14:45 82 92/41 01/08/21 14:30 80 108/56 01/08/21 14:26 80 120/58 01/08/21 14:20 98.3 F 78 18 129/69 01/08/21 09:45 139/84 01/08/21 09:43 133/72 - Physical Examination General: No Apparent Distress HEENT: Positive: PERRL Neck: Positive: neck supple, trachea midline Cardiac: Positive: Reg Rate and Rhythm Lungs: Positive: Decreased Breath Sounds Neuro: Positive: Grossly Intact Extremities: Absent: edema - Labs and Meds Cardiac Enzymes 01/09/21 Range/Units 04:31 AST 15 (5-40) units/L CBC 01/09/21 Range/Units 04:31 WBC 6.0 (4.5-11.0) K/mm3 RBC 3.75 (3.65-5.03) M/mm3 Hgb 11.9 (11.8-15.2) gm/dl Hct 35.0 L (35.5-45.6) % Plt Count 246 (140-440) K/mm3 Lymph # (Auto) 1.3 (1.2-5.4) K/mm3 [place] # (Auto) 0.4 (0.0-0.8) K/mm3 Eos # (Auto) 0.1 (0.0-0.4) K/mm3 Baso # (Auto) 0.1 (0.0-0.1) K/mm3 Comprehensive Metabolic Panel 01/09/21 Range/Units 04:31 Sodium 137 (137-145) mmol/L Potassium 4.1 (3.6-5.0) mmol/L Chloride 95.3 L (98-107) mmol/L Carbon Dioxide 26 (22-30) mmol/L BUN 53 H (9-20) mg/dL Creatinine 8.5 H (0.8-1.3) mg/dL Glucose 166 H (75-100) mg/dL Calcium 8.6 (8.4-10.2) mg/dL AST 15 (5-40) units/L ALT 11 (7-56) units/L Alkaline Phosphatase 83 (35-129) units/L Total Protein 6.9 (6.3-8.2) g/dL Albumin 3.9 (3.9-5) g/dL
[2021-01-09] MEDS: INSULIN LISPRO 100 UNIT/ML SUB-Q SCH ×2 (09:36→12:44)
[2021-01-09] MEDS: INSULIN GLARGINE 100 UNITS/ML SUB-Q SCH (09:53)
[2021-01-09] MEDS: FAMOTIDINE 10 MG TAB PO SCH (09:54)
[2021-01-09] MEDS: LOSARTAN 50 MG TAB PO SCH (09:54)
[2021-01-09] MEDS: NIFEdipine XL 60 MG TAB PO SCH (09:54)
[2021-01-09] MEDS: DOCUSATE SODIUM 100 MG CAP PO SCH (09:54)
[2021-01-09] MEDS: hydrALAZINE 100 MG TAB PO SCH (09:55)
[2021-01-09] MEDS: HEPARIN 5,000 UNIT/1 ML VIAL SUB-Q SCH (09:56)
[2021-01-09] MEDS ORDERED: ASPIRIN EC 81 MG TAB PO SCH (10:00)
[2021-01-09] MEDS ORDERED: cloNIDine TTS 0.2 MG/24 HR PATCH TD SCH (10:00)
[2021-01-09] MEDS ORDERED: LORazepam 2 MG/ML VIAL IV ONE (11:25)
--- NOTE | 2021-01-09 12:17 | Magnetic Resonance Report ---
MR MRA/MRV neck wo con, MR MRA/MRV head wo con INDICATION / CLINICAL INFORMATION: Encephalopathy, abnormal CT scan. TECHNIQUE: Routine MRA of the head and routine MRA of the neck are performed. 3-D/MIP reformats postprocessed. P ercentage stenosis is determined by direct quantitative measurements of distal internal carotid arter y diameter compared with normal reference segments or by criteria similar to NASCET where applicable. COMPARISON: Brain MRI on 01/08/2021 FINDINGS: MRA HEAD: Intracranial vertebral arteries: No occlusion or significant stenosis. Basilar artery: No occlusion or significant stenosis. Posterior cerebral arteries: No occlusion or significant stenosis. Intracranial internal carotid arteries: No occlusion or significant stenosis. Anterior cerebral arteries: No occlusion or significant stenosis. Middle cerebral arteries: No occlusion or significant stenosis. No aneurysm. Additional findings: None. MRA NECK: Cervical vertebral arteries: No occlusion or significant stenosis. Common carotid arteries: No occlusion or significant stenosis. Cervical internal carotid arteries: No occlusion or significant stenosis. Additional findings: None. IMPRESSION: 1. No occlusion, significant stenosis, or other significant abnormality of the major head and neck va sculature. Signer Name: Viraj Sotomayor MD Signed: 01/09/2021 12:13 PM Workstation Name: [id number]
[2021-01-09] MEDS: ONDANSETRON 4 MG/2 ML INJ IV PRN (12:44)
--- NOTE | 2021-01-09 13:03 | Progress Note ---
Assessment and Plan Assessment and Plan #Syncope -Reports syncopal episode x1 yesterday (01/03/2021) -Previously admitted in October of this year with complaints of syncopal episodes with right leg numbness predromal period; syncope was due to DKA at that time -Today CT head negative -Review of carotid Doppler on 11/19 shows less than 50% stenosis in both left and right carotid arteries -Echo on 11/18 shows normal left ventricular systolic function EF of 55 to 60%; with moderate to severe, concentric left ventricle hypertrophy consistent with his ----chronic uncontrolled hypertension. -Seen and evaluated by [facility], with changes to antihypertensive regimen for optimization of blood pressure -Initiate fall precautions -Neuro checks -EEG diffuse slowing -- -MRI done right temporal infarct subacute -MRA brain and neck unremarkable -Seizure precaution -Positive for orthostatic , -Need MCOT on D/C with cardiology follow up ?AF - Mao hose apply during the day, Hydration and avoid excessive fluid exchange with dialysis -Neurology and cardiology , nephrology follow up #Malignant hypertension -Blood pressure 193/113 on assessment -Reports that he stopped taking antihypertensives except for hydralazine due to medication overload -Monitor BP -Resume home hydralazine and nifedipine -Cardiology consulted -schadualed for stress test today -Consider media monitor on D/C - Check for orthostatic changes #Elevated D-dimer -At 501.95 -VQ scan is negative #Complains of lower back pain -Endorses history of chronic pain -L-spine XR noted -Supportive care #ESRD -on HD T// -Last dialyzed on 01/03 -Renal dose all meds -Avoid nephrotoxic agents -Nephrology consulted for HD management #Elevated troponin -?? Likely due to renal cardiac disease -Trend troponin -EKG unrevealing for acute ischemic abnormalities #Insulin-dependent diabetes mellitus -POC BG monitoring -Schedule Lantus and SSI coverage prn -HgbA1C #6.8 # Hx of HIV DVT and GI PPX -On heparin and Pepcid will sign off Subjective Date of service: 01/09/21 Principal diagnosis: ESRD, syncope Interval history: had lexiscan yesterday complain of feeling dizzy with standing up positive for orthostatic changes BP drop 130---92 systolic and hr increased 80--93 EEG diffuse slowing MRI brain is remarkable for small infarct right ant. frontal MRA brain and neck are unremarkable Objective - Vital Sign Vital Signs - 12hr 01/09/21 01/09/21 01/09/21 04:22 07:42 09:54 Temperature 98.9 F 99.1 F Pulse Rate 84 89 89 Respiratory 18 20 Rate Blood Pressure 123/75 123/75 Blood Pressure 135/74 [Right] O2 Sat by Pulse 95 95 Oximetry 01/09/21 09:55 Temperature Pulse Rate 89 Respiratory Rate Blood Pressure 123/75 Blood Pressure [Right] O2 Sat by Pulse Oximetry - General Apperance Constitutional: comfortable - EENT EENT: PERRL, mucous membranes moist - Respiratory Respiratory: chest non-tender, lungs clear - Cardiovascular Cardiovascular: regular rate, normal S1, normal S2 Extremities: no peripheral edema bilat, no clubbing, cyanosis - Gastrointestinal Gastrointestinal: normoactive bowel sounds - Integumentary Integumentary: normal - Neurologic Cranial nerve examination: PERRL, EOMI, VFF, intact Speech examination: intact Detailed motor examination: grossly full strength in - Laboratory Findings CBC and BMP: 01/09/21 04:31 01/09/21 04:31 Abnormal Lab Findings: Abnormal Labs 01/04/21 01/04/21 01/04/21 03:23 03:23 03:23 RBC 3.57 L Hgb 11.7 L Hct 33.4 L MCH 33 H MCHC 35 H [place] % (Auto) 8.4 H Seg Neutrophils % 74.5 H D-Dimer 501.95 H Sodium 136 L Potassium 3.5 L Chloride 94.6 L BUN 30 H Creatinine 5.1 H Glucose 192 H POC Glucose Hemoglobin A1c Magnesium 2.50 H CK-MB (CK-2) 5.0 H CK-MB (CK-2) Rel Index 5.3 H Troponin T 0.266 H* Triglycerides 210 H HDL Cholesterol 35 L Free T4 01/04/21 01/04/21 01/04/21 03:23 03:23 07:20 RBC Hgb Hct MCH MCHC [place] % (Auto) Seg Neutrophils % D-Dimer Sodium Potassium Chloride BUN Creatinine Glucose POC Glucose Hemoglobin A1c 6.8 H Magnesium CK-MB (CK-2) CK-MB (CK-2) Rel Index Troponin T 0.217 H* Triglycerides HDL Cholesterol Free T4 1.56 H 01/04/21 01/04/21 01/05/21 16:13 20:41 04:20 RBC Hgb Hct MCH MCHC [place] % (Auto) Seg Neutrophils % D-Dimer Sodium 135 L Potassium Chloride 97.5 L BUN 44 H Creatinine 7.0 H Glucose 149 H POC Glucose 257 H 231 H Hemoglobin A1c Magnesium CK-MB (CK-2) CK-MB (CK-2) Rel Index Troponin T Triglycerides HDL Cholesterol Free T4 01/05/21 01/05/21 01/05/21 08:06 11:38 21:02 RBC Hgb Hct MCH MCHC [place] % (Auto) Seg Neutrophils % D-Dimer Sodium Potassium Chloride BUN Creatinine Glucose POC Glucose 181 H 200 H 141 H Hemoglobin A1c Magnesium CK-MB (CK-2) CK-MB (CK-2) Rel Index Troponin T Triglycerides HDL Cholesterol Free T4 01/06/21 01/06/21 01/06/21 08:19 11:54 16:06 RBC Hgb Hct MCH MCHC [place] % (Auto) Seg Neutrophils % D-Dimer Sodium Potassium Chloride BUN Creatinine Glucose POC Glucose 178 H 233 H 158 H Hemoglobin A1c Magnesium CK-MB (CK-2) CK-MB (CK-2) Rel Index Troponin T Triglycerides HDL Cholesterol Free T4 01/06/21 01/07/21 01/07/21 21:21 07:18 11:56 RBC Hgb Hct MCH MCHC [place] % (Auto) Seg Neutrophils % D-Dimer Sodium Potassium Chloride BUN Creatinine Glucose POC Glucose 203 H 199 H 158 H Hemoglobin A1c Magnesium CK-MB (CK-2) CK-MB (CK-2) Rel Index Troponin T Triglycerides HDL Cholesterol Free T4 01/07/21 01/07/21 01/08/21 16:28 20:29 07:17 RBC Hgb Hct MCH MCHC [place] % (Auto) Seg Neutrophils % D-Dimer Sodium Potassium Chloride BUN Creatinine Glucose POC Glucose 143 H 171 H 140 H Hemoglobin A1c Magnesium CK-MB (CK-2) CK-MB (CK-2) Rel Index Troponin T Triglycerides HDL Cholesterol Free T4 01/08/21 01/08/21 01/09/21 11:59 20:24 04:31 RBC Hgb Hct 35.0 L MCH MCHC [place] % (Auto) 7.5 H Seg Neutrophils % D-Dimer Sodium Potassium Chloride BUN Creatinine Glucose POC Glucose 174 H 226 H Hemoglobin A1c Magnesium CK-MB (CK-2) CK-MB (CK-2) Rel Index Troponin T Triglycerides HDL Cholesterol Free T4 01/09/21 01/09/21 01/09/21 04:31 07:45 12:18 RBC Hgb Hct MCH MCHC [place] % (Auto) Seg Neutrophils % D-Dimer Sodium Potassium Chloride 95.3 L BUN 53 H Creatinine 8.5 H Glucose 166 H POC Glucose 148 H 170 H Hemoglobin A1c Magnesium CK-MB (CK-2) CK-MB (CK-2) Rel Index Troponin T Triglycerides HDL Cholesterol Free T4
--- NOTE | 2021-01-09 15:32 | Progress Note ---
Assessment and Plan - Patient Problems (1) Acute CVA (cerebrovascular accident) Current Visit: Yes Status: Acute Plan to address problem: 1 cm focus of restricted diffusion present in the right anterior temporal lobe white matter, best seen on diffusion weighted image 15-16. This is associated with some decreased ADC signal. Compatible with a small focal area of acute or recent ischemic injury. Patient with no focal deficits. Neurology consult requested. Patient may have syncopized secondary to acute cerebral infarct. (2) Hypertensive emergency Current Visit: Yes Status: Acute Plan to address problem: Improved (3) IDDM (insulin dependent diabetes mellitus) Current Visit: Yes Status: Acute Plan to address problem: Continue insulin and coverage. Adjust insulin dosage. (4) Syncope Current Visit: Yes Status: Acute Qualifiers: Plan to address problem: Syncope secondary to cerebral infarct and orthostatic hypotension Lexiscan is pending (5) End stage renal disease Current Visit: Yes Status: Chronic Plan to address problem: Continue hemodialysis. (6) HIV (human immunodeficiency virus infection) Current Visit: Yes Status: Chronic Qualifiers: HIV symptom status: asymptomatic, with no history of HIV-related illness Qualified Code(s): Z21 - Asymptomatic human immunodeficiency virus [HIV] infection status Plan to address problem: Continue antiretrovirals. (7) Hypertension Current Visit: Yes Status: Chronic Qualifiers: Hypertension type: essential hypertension Qualified Code(s): I10 - Essential (primary) hypertension Plan to address problem: Continue antihypertensives. Adjust blood pressure medications. (8) DVT prophylaxis Current Visit: No Status: Acute Plan to address problem: Continue heparin and GI prophylaxis Subjective Date of service: 01/07/21 Principal diagnosis: ESRD, syncope Interval history: 35-year-old male with history of HIV, uncontrolled hyper, insulin-dependent diabetes, migraines, gastroparesis, chronic pain, ESRD on HD who presents to [facility] ED with complaints of syncopal episode. Patient states he was sitting on the commode, had a bowel movement, and then stood up to wash his hands and had a syncopal episode. He was unsure how long he was unconscious. Denies head injury or trauma, but complains of back pain due to fall. He called 911 and he was transported to our facility for further evaluation and treatment. Wolfgang tionally he complains of intermittent shortness of breath and palpitations x2 weeks. His dyspnea and palpitations are relieved with rest and aggravated with exertion. Since he has new complaint of dyspnea and palpitations, EKG unrevealing however will consult cardiology ([facility]) for further evaluation. Review of medical record shows patient was admitted in October with similar complaints of syncopal episodes. He complained of prodromal. Of right leg numbness followed by syncopal episode. At the time patient was found to be in DKA and it was thought that syncopal episodes were related to DKA. Imaging studies during admission were all negative. He was seen by cardiology with changes made to antihypertensive meds for optimization of BP. Denies nausea, vomiting, fever, headache, alterations in vision, abdominal pain, hematuria, melena, hematochezia, IV drug use, illicit drug use, smoking, recent stress/trauma, or recent sick contacts 01/05/2021 MR brain pending Syncope work-up Continue hemodialysis 01/06/2021 Blood pressure is improved Continue hemodialysis 01/07/2021 MRI brain shows right temporal infarct Neurology consult requested Objective - Constitutional Vitals: Vital Signs - 12hr 01/09/21 01/09/21 01/09/21 04:22 07:42 09:54 Temperature 98.9 F 99.1 F Pulse Rate 84 89 89 Respiratory 18 20 Rate Blood Pressure 123/75 123/75 Blood Pressure 135/74 [Right] O2 Sat by Pulse 95 95 Oximetry 01/09/21 09:55 Temperature Pulse Rate 89 Respiratory Rate Blood Pressure 123/75 Blood Pressure [Right] O2 Sat by Pulse Oximetry General appearance: Present: no acute distress, well-nourished - EENT Eyes: PERRL, EOM intact ENT: hearing intact, clear oral mucosa Ears: bilateral: normal - Neck Neck: supple, normal ROM - Respiratory Respiratory effort: normal Respiratory: bilateral: CTA - Breasts Breasts: normal - Cardiovascular Heart rate: 78 Rhythm: regular Heart Sounds: Present: S1 & S2. Absent: gallop, rub Extremities: pulses intact, No edema, normal color, Full ROM - Gastrointestinal General gastrointestinal: Present: soft, non-tender, non-distended, normal bowel sounds - Genitourinary Male genitourinary: normal - Integumentary Integumentary: clear, warm, dry - Musculoskeletal Musculoskeletal: 1, strength equal bilaterally - Neurologic Neurologic: moves all extremities - Psychiatric Psychiatric: memory intact, appropriate mood/affect, intact judgment & insight - Labs CBC & Chem 7: 01/09/21 04:31 01/09/21 04:31 Labs: Abnormal lab results 01/08/21 01/09/21 01/09/21 Range/Units 20:24 04:31 04:31 Hct 35.0 L (35.5-45.6) % [place] % (Auto) 7.5 H (0.0-7.3) % Chloride 95.3 L (98-107) mmol/L BUN 53 H (9-20) mg/dL Creatinine 8.5 H (0.8-1.3) mg/dL Glucose 166 H (75-100) mg/dL POC Glucose 226 H (70-105) mg/dL 01/09/21 01/09/21 Range/Units 07:45 12:18 Hct (35.5-45.6) % [place] % (Auto) (0.0-7.3) % Chloride (98-107) mmol/L BUN (9-20) mg/dL Creatinine (0.8-1.3) mg/dL Glucose (75-100) mg/dL POC Glucose 148 H 170 H (70-105) mg/dL HEART Score - HEART Score Troponin: Troponin T 0.217 ng/mL (0.00-0.029) H* 01/04/21 07:20
[2021-01-09 17:24] VITALS: BP 119/62
--- NOTE | 2021-01-10 10:45 | Nuclear Medicine Report ---
APPROVED REPORT Exam: Nuclear Stress Test Indication: Syncope BMI: 0 Stress Test Details Stress Test: Pharmacologic stress testing performed using 0.4 mg of regadenoson per 5 mL given IV over 10 seconds. HR Resting HR: 89 bpm Max HR Achieved: 110 bpm Max Heart Rate (APMHR): 187 bpm Target HR (85% APMHR): 158 bpm % of APMHR: 58 Recovery HR: 99 bpm HR response to stress: Normal HR response to stress BP Resting BP: 134/64 mmHg Max BP: 155/89 mmHg Recovery BP: 133/70 mmHg BP response to stress: Normal blood pressure response to stress. ECG Resting ECG: Sinus Rhythm Stress ECG: Sinus Tachycardia ST Change: None Arrhythmia: None Recovery ECG: Sinus Rhythm Recovery ST Change: None Recovery Arrhythmia: None Stress ECG Conclusion No chest pain and no ST changes of ischemia with pharmacologic stress testing, myocardial perfusion images are pending for final test interpretation. NM EXAM: Myocardial Perfusion REST/STRESS Imaging Protocol: Rest Tc-99m/Stress Tc-99m 1 day Resting Data Rest SPECT myocardial perfusion imaging was performed in supine position 45 minutes following the intravenous injection of 10 mCi of Tc-99m Myoview. Time of rest injection: 0635 Pharmacologic Stress Pharmacologic stress test was performed by injecting Regadenoson 0.4 mg IV push followed by the intravenous injection of 28 mCi of Tc-99m Myoview. Time of stress injection: 0936 Gated Stress SPECT was performed 30 minutes after stress injection. The images were gated to evaluate regional wall motion and calculate left ventricular ejection fraction. Study Quality Study: excellent Lung Uptake: Normal Study Data TID = 1.08. Perfusion Wall Motion The rest and stress images show normal left ventricular wall motion. Nuclear Conclusion ECG Findings: negative for ischemia Clinical Findings: negative for ischemia Nuclear Findings: negative for ischemia Left Ventricular Function: abnormal Risk Study: low Normal rest and stress myocardial perfusion study. Gated analysis reports mild depression of left ventricular systolic function at 44%. Clinical correlation is recommended, and echocardiographic reassessment of left ventricular systolic function. Conclusion No chest pain and no ST changes of ischemia with pharmacologic stress testing, myocardial perfusion images are pending for final test interpretation.
--- NOTE | 2021-01-10 11:13 | Electrocardiograph Report ---
[facility] Test Date: 2021-01-04 Test Time: 03:21:40 Pat Name: COLEMAN COLE III Department: Room: A466 Gender: M Fast [employer] Worker: TRENT : 1985 Requested By: PERLA L[address] Order Number: [id number] Reading MD: Jax Macdonald Measurements Intervals [place] Rate: 106 P: 57 IA: 133 QRS: 21 QRSD: 85 T: 169 QT: 373 QTc: 497 Interpretive Statements Sinus tachycardia Poor R wave progress Nonspecific T wave changes Compared to ECG 11/18/2020 16:56:58 No significant change Electronically Signed On 01-10-2021 11:12:56 EDT by Jax Macdonald
== END 2021-01-09 19:29 | disposition home or self-care (01) | DRG 64 ==
LOC: ED 02:33 → 4A 05:08 → OBSVTOIN 05:08 → INTOOBSV 05:08 → 4A 07:52 → OBSVTOIN 01-06 09:05
PROVIDERS: ADMIT Internal Medicine Geriatric Medicine; ATTEND Internal Medicine
PROC: 5A1D70Z Performance of Urinary Filtration, Intermittent, Less than 6 Hours Per Day (ICD-10-PCS; principal; 2021-01-04)
PROC: 5A1D70Z Performance of Urinary Filtration, Intermittent, Less than 6 Hours Per Day (ICD-10-PCS; 2021-01-05)
PROC: 5A1D70Z Performance of Urinary Filtration, Intermittent, Less than 6 Hours Per Day (ICD-10-PCS; 2021-01-08)
DX: I63.9 Cerebral infarction, unspecified (principal); N18.6 End stage renal disease; I21.4 Non-ST elevation (NSTEMI) myocardial infarction; E87.1 Hypo-osmolality and hyponatremia; I12.0 Hypertensive chronic kidney disease with stage 5 chronic kidney disease or end stage renal disease; I16.1 Hypertensive emergency; E11.22 Type 2 diabetes mellitus with diabetic chronic kidney disease; G90.8 Other disorders of autonomic nervous system; G43.909 Migraine, unspecified, not intractable, without status migrainosus; E66.01 Morbid (severe) obesity due to excess calories; G89.29 Other chronic pain; E87.6 Hypokalemia; S30.0XXA Contusion of lower back and pelvis, initial encounter; X58.XXXA Exposure to other specified factors, initial encounter; Z21 Asymptomatic human immunodeficiency virus [HIV] infection status; Z79.899 Other long term (current) drug therapy; Z87.891 Personal history of nicotine dependence; Y93.89 Activity, other specified; Y92.89 Other specified places as the place of occurrence of the external cause; Y99.8 Other external cause status; Z88.6 Allergy status to analgesic agent; Z88.0 Allergy status to penicillin; Z79.4 Long term (current) use of insulin; Z68.39 Body mass index [BMI] 39.0-39.9, adult; Z90.49 Acquired absence of other specified parts of digestive tract
CPT/HCPCS: 36415; 70450; 70544; 70547; 70553; 71045; 72100; 78452; 78580; 80048; 80053; 80061; 80074; 80307; 80320; 82550; 82553; 82607; 82805; 82962; 83036; 83735; 84439; 84443; 84484; 85025; 85379; 85610; 85730; 87641; 93005; 93017; 95819; 96374; G0378; A9502; A9540; A9575; G0480; J0885; J1644; J1815; J2405; J2785

== ENCOUNTER 2021-06-12 13:58 | Inpatient (IN) | payer OTHER ==
[2021-06-12] MEDS ORDERED: ONDANSETRON 4 MG/2 ML INJ IV ONE (14:22)
[2021-06-12] MEDS ORDERED: MORPHINE 2 MG/1 ML INJ IV ONE (14:22)
--- NOTE | 2021-06-12 14:36 | Emergency Department Report ---
ED Abdominal Pain HPI - General Chief Complaint: Dyspnea/Respdistress Stated Complaint: dIZZINESS Time Seen by Provider: 06/12/21 14:11 Source: patient Mode of arrival: Ambulatory Limitations: No Limitations - History of Present Illness Initial Comments: 36-year-old male, history of hypertension, diabetes, ESRD, HIV, gastroparesis, presents to ED with right lower quadrant pain over the last couple of days. Patient also reports associated nausea and vomiting. He denies any fever. History of cholecystectomy in the past. Patient last dialyzed 4 days ago. Missed dialysis on yesterday because he was not feeling well. Patient also reporting shortness of breath. [employer] Testing: Dr. Kathryn MIGUEL Complaint: abdominal pain -: days(s) (2) Location: RLQ Radiation: none Migration to: no migration Severity: moderate Quality: aching Consistency: constant Improves With: nothing Worsens With: nothing Associated Symptoms: nausea, vomiting. denies: diarrhea, fever - Related Data Home Medications Medication Instructions Recorded Confirmed Last Taken Dolutegravir/Rilpivirine [[place] 1 tab PO DAILY 11/19/20 01/05/21 11/18/20 50-25 mg Tablet] Previous Rx's Medication Instructions Recorded Last Taken Type Acetaminophen [Acetaminophen TAB] 650 mg PO Q4H PRN tablet 05/10/19 06/07/19 07:00 Rx Darunavir [Prezista] 800 mg PO QDAY tablet 05/10/19 11/18/20 Rx Baclofen [Lioresal] 10 mg PO QHS PRN #10 tablet 11/23/20 Unknown Rx cloNIDine-TTS PATCH [Catapres-Tts 0.2 mg TD We@1000 #4 patch 11/23/20 Unknown Rx 0.2mg Patch] Aspirin EC [Halfprin EC] 81 mg PO QDAY #100 tablet 01/09/21 Unknown Rx AtorvaSTATin [Lipitor] 40 mg PO QHS #30 tablet 01/09/21 Unknown Rx Clopidogrel [Plavix] 75 mg PO QDAY #30 tablet 01/09/21 Unknown Rx Darunavir [Prezista] 800 mg PO QDAY tablet 01/09/21 Unknown Rx Dolutegravir/Rilpivirine [[place] 1 tab PO DAILY 01/09/21 Unknown Rx 50-25 mg Tablet] Epoetin Jv-Epbx 10,000 Unit 10,000 unit IV TORY PRN vial 01/09/21 Unknown Rx [Retacrit] Famotidine [Pepcid] 10 mg PO BID tablet 01/09/21 Unknown Rx Ferric Citrate (Nf) [Auryxia] 1 tab PO QDAY #30 01/09/21 Unknown Rx HYDROcodone/APAP 7.5-325 [Bend 1 each PO Q6H PRN #8 tablet 01/09/21 Unknown Rx 7.5-325 mg TAB] Insulin Aspart Prot/Aspart(Nf) 30 units SQ BID #2 vial 01/09/21 Unknown Rx [Novolog Mix 70/30] Insulin NPH/Regular [NovoLIN 70/30] 30 unit SUB-Q BIDDIAB 30 Days #2 01/09/21 Unknown Rx vial Losartan [Cozaar] 50 mg PO QDAY #30 tablet 01/09/21 Unknown Rx NIFEdipine XL [Procardia Xl] 60 mg PO QDAY #30 tablet 01/09/21 Unknown Rx hydrALAZINE [Apresoline TAB] 100 mg PO TID #90 tab 01/09/21 Unknown Rx labetaloL [Labetalol 100mg TAB] 300 mg PO BID #60 tablet 01/09/21 Unknown Rx Allergies Allergy/AdvReac Type Severity Reaction Status Date / Time Penicillins Allergy Hives Verified 06/12/21 15:14 tramadol AdvReac Vomiting Verified 06/12/21 15:15 ED Review of Systems ROS: Stated complaint: dIZZINESS Other details as noted in HPI Comment: All other systems reviewed and negative Constitutional: denies: chills, fever Respiratory: shortness of breath Gastrointestinal: abdominal pain, nausea, vomiting. denies: diarrhea ED Past Medical Hx - Past Medical History Hx Hypertension: Yes Hx Diabetes: Yes Hx Renal Disease: Yes (T, Th, Sat) Hx Headaches / Migraines: Yes (Migraines) Hx HIV: Yes Additional medical history: HIV (on medication, unknown last CD4 count). gastroparesis - Surgical History Hx Cholecystectomy: Yes Additional Surgical History: Dialysis port in right chest. fistula in left arm - Social History Smoking Status: Never Smoker - Medications Home Medications: Home Medications Medication Instructions Recorded Confirmed Last Taken Type Acetaminophen [Acetaminophen TAB] 650 mg PO Q4H PRN tablet 05/10/19 01/05/21 06/07/19 07:00 Rx Darunavir [Prezista] 800 mg PO QDAY tablet 05/10/19 01/05/21 11/18/20 Rx Dolutegravir/Rilpivirine [[place] 1 tab PO DAILY 11/19/20 01/05/21 11/18/20 History 50-25 mg Tablet] Baclofen [Lioresal] 10 mg PO QHS PRN #10 tablet 11/23/20 01/05/21 Unknown Rx cloNIDine-TTS PATCH [Catapres-Tts 0.2 mg TD We@1000 #4 patch 11/23/20 01/05/21 Unknown Rx 0.2mg Patch] Aspirin EC [Halfprin EC] 81 mg PO QDAY #100 tablet 01/09/21 Unknown Rx AtorvaSTATin [Lipitor] 40 mg PO QHS #30 tablet 01/09/21 Unknown Rx Clopidogrel [Plavix] 75 mg PO QDAY #30 tablet 01/09/21 Unknown Rx Darunavir [Prezista] 800 mg PO QDAY tablet 01/09/21 Unknown Rx Dolutegravir/Rilpivirine [[place] 1 tab PO DAILY 01/09/21 Unknown Rx 50-25 mg Tablet] Epoetin Jv-Epbx 10,000 Unit 10,000 unit IV TORY PRN vial 01/09/21 Unknown Rx [Retacrit] Famotidine [Pepcid] 10 mg PO BID tablet 01/09/21 Unknown Rx Ferric Citrate (Nf) [Auryxia] 1 tab PO QDAY #30 01/09/21 Unknown Rx HYDROcodone/APAP 7.5-325 [[place]end 1 each PO Q6H PRN #8 tablet 01/09/21 Unknown Rx 7.5-325 mg TAB] Insulin Aspart Prot/Aspart(Nf) 30 units SQ BID #2 vial 01/09/21 Unknown Rx [Novolog Mix 70/30] Insulin NPH/Regular [NovoLIN 70/30] 30 unit SUB-Q BIDDIAB 30 Days #2 01/09/21 Unknown Rx vial Losartan [Cozaar] 50 mg PO QDAY #30 tablet 01/09/21 Unknown Rx NIFEdipine XL [Procardia Xl] 60 mg PO QDAY #30 tablet 01/09/21 Unknown Rx hydrALAZINE [Apresoline TAB] 100 mg PO TID #90 tab 01/09/21 Unknown Rx labetaloL [Labetalol 100mg TAB] 300 mg PO BID #60 tablet 01/09/21 Unknown Rx ED Physical Exam - General Limitations: No Limitations General appearance: alert, other (Appears uncomfortable) - Head Head exam: Present: atraumatic, normocephalic - Eye Eye exam: Present: normal appearance, EOMI - ENT ENT exam: Present: mucous membranes moist - Neck Neck exam: Present: normal inspection - Respiratory Respiratory exam: Present: normal lung sounds bilaterally. Absent: respiratory distress - Cardiovascular Cardiovascular Exam: Present: normal rhythm, tachycardia - GI/Abdominal GI/Abdominal exam: Present: soft, tenderness (Right lower quadrant). Absent: distended - Extremities Exam Extremities exam: Present: normal inspection - Neurological Exam Neurological exam: Present: alert, oriented X3 - Psychiatric Psychiatric exam: Present: normal affect, normal mood - Skin Skin exam: Present: warm, dry, intact, normal color ED Course Vital Signs 06/12/21 06/12/21 06/12/21 14:02 14:17 14:30 Temperature 98.8 F Pulse Rate 107 H 105 H Respiratory 16 9 L Rate Blood Pressure 199/112 Blood Pressure 201/119 [Left] O2 Sat by Pulse 95 96 95 Oximetry 06/12/21 06/12/21 06/12/21 14:38 14:45 15:01 Temperature Pulse Rate 107 H 107 H Respiratory 21 17 Rate Blood Pressure 199/112 199/112 Blood Pressure [Left] O2 Sat by Pulse 98 96 96 Oximetry 06/12/21 06/12/21 06/12/21 15:15 15:30 15:45 Temperature Pulse Rate 106 H 106 H 101 H Respiratory 20 16 17 Rate Blood Pressure 199/112 213/118 213/118 Blood Pressure [Left] O2 Sat by Pulse 95 95 95 Oximetry 06/12/21 06/12/21 06/12/21 16:00 16:35 16:45 Temperature Pulse Rate 102 H 104 H 102 H Respiratory 27 H 13 11 L Rate Blood Pressure 206/118 165/91 Blood Pressure [Left] O2 Sat by Pulse 93 93 94 Oximetry 06/12/21 06/12/21 06/12/21 17:01 17:15 17:30 Temperature Pulse Rate 102 H 99 H 103 H Respiratory 12 24 10 L Rate Blood Pressure 187/109 187/109 195/120 Blood Pressure [Left] O2 Sat by Pulse 95 95 95 Oximetry 06/12/21 06/12/21 06/12/21 17:45 18:00 18:15 Temperature Pulse Rate 103 H 100 H 103 H Respiratory 18 11 L 12 Rate Blood Pressure 195/120 205/122 205/122 Blood Pressure [Left] O2 Sat by Pulse 92 93 92 Oximetry ED Medical Decision Making - Lab Data Result diagrams: 06/12/21 15:08 06/12/21 15:08 - EKG Data -: EKG Interpreted by Ga EKG shows normal: sinus rhythm, axis, intervals, QRS complexes Rate: tachycardia - EKG Data Interpretation: nonspecific ST-T wave cecile - Radiology Data Radiology results: report reviewed, image reviewed - Medical Decision Making 36-year-old male presents to ED with right lower quadrant pain, nausea and vomiting. CT negative for any intra-abdominal findings. Due to his symptoms, patient missed dialysis on yesterday. Patient has evidence of pulmonary edema on chest x-ray and CT scan. He reports some shortness of breath. O2 sat is dropped down to 92-93% on room air. I spoke with occupational therapist assistant who agrees to dialyze the patient. Patient will be admitted by Dr. Hicks, hospitalist, for further management. - Differential Diagnosis Appendicitis, kidney stone, hyperkalemia, gastroparesis Critical care attestation.: If time is entered above; I have spent that time in minutes in the direct care of this critically ill patient, excluding procedure time. ED Disposition Clinical Impression: Abdominal pain, ESRD needing dialysis, Pulmonary edema Disposition: ADMITTED INPATIENT Is pt being admited?: Yes Condition: Stable Time of Disposition: 17:30
[2021-06-12 15:32] LABS: Basophils % (Auto) 0.6 % (0.0-1.8); Eosinophils # (Auto) 0.1 K/mm3 (0.0-0.4); Eosinophils % (Auto) 1.6 % (0.0-4.3); Hematocrit 34.5 % (35.5-45.6); Hemoglobin 11.3 gm/dl (11.8-15.2); Lymphocytes # (Auto) 0.8 K/mm3 (1.2-5.4); Lymphocytes % (Auto) 9.8 % (13.4-35.0); Mean Corpuscular HGB Conc 33 % (32-34); Mean Corpuscular Volume 91 fl (84-94); Monocytes # (Auto) 0.6 K/mm3 (0.0-0.8); Monocytes % (Auto) 6.7 % (0.0-7.3); Platelet Count 264 K/mm3 (140-440); Red Blood Count 3.78 M/mm3 (3.65-5.03); Red Cell Distribution Width 14.2 % (13.2-15.2)
[2021-06-12 15:44] LABS: Calcium 8.6 mg/dL (8.4-10.2)
[2021-06-12 15:52] LABS: Albumin 4.2 g/dL (3.9-5); Bilirubin,Direct 0.2 mg/dL (0-0.2)
--- NOTE | 2021-06-12 16:59 | Cat Scan Report ---
CT abdomen pelvis w con INDICATION: RLQ pain OMNI 300 100ML. TECHNIQUE: All CT scans at this location are performed using CT dose reduction for ALARA by means of automated e xposure control. COMPARISON: Prior CT on 05/08/2019 FINDINGS: There are small bilateral pleural effusions with pulmonary edema in the included lung bases. The gallbladder is surgically absent. The liver, pancreas, spleen, adrenal glands, and kidneys demons trate no acute findings. There are no acute bowel abnormalities. There is no abdominal or pelvic adenopathy. The visualized osseous structures demonstrate no aggressive appearing bone lesions or acute abnormali ties. IMPRESSION: 1. Small bilateral pleural effusions with pulmonary edema in the included lung bases. 2. No acute intra-abdominal or intrapelvic findings. Signer Name: Viraj Sotomayor MD Signed: 06/12/2021 4:55 PM Workstation Name: [email or web address]
--- NOTE | 2021-06-12 17:15 | XRay Report ---
CHEST 1 VIEW 06/12/2021 4:07 PM INDICATION / CLINICAL INFORMATION: sob. COMPARISON: 01/04/2021 FINDINGS: SUPPORT DEVICES: None. HEART / MEDIASTINUM: No significant abnormality. LUNGS / PLEURA: Increased interstitial opacities. No focal lung opacity. No pneumothorax. ADDITIONAL FINDINGS: No significant additional findings. IMPRESSION: 1. Increased interstitial opacities can be seen with mild pulmonary edema. Recommend clinical correla tion. Signer Name: Bruno Amaral MD Signed: 06/12/2021 5:11 PM Workstation Name: [email or web address]
[2021-06-12] MEDS ORDERED: SODIUM CHLORIDE 0.9% 100 ML IV PRN ×2 (17:35→21:49)
[2021-06-12] MEDS ORDERED: hydrALAZINE 20 MG/1 ML INJ IV ONE (18:18)
[2021-06-12] MEDS ORDERED: HYDROmorphone 1 MG/1 ML INJ IV ONE (18:52)
[2021-06-12] MEDS ORDERED: cloNIDine 0.1 MG TAB PO PRN (21:49)
[2021-06-12] MEDS ORDERED: BACLOFEN 10 MG TAB PO PRN (22:43)
[2021-06-12] MEDS ORDERED: ACETAMINOPHEN 325 MG TAB PO PRN ×2 (22:43→22:46)
--- NOTE | 2021-06-12 22:43 | History and Physical Report ---
History of Present Illness Date of examination: 06/12/21 Date of admission: 06/12/21 17:30 Chief complaint: Increasing shortness of breath for 1 day History of present illness: 36-year-old male with history of hypertension, hyperlipidemia, coronary artery disease, HIV, gastroparesis comes to the emergency room for right lower quadrant pain for the last couple days. Patient also has associated nausea and vomiting. Denies any fever. Patient missed 2 dialysis sessions. Increasing shortness of breath and orthopnea present. No fever or chills. - Past Medical History Hx Hypertension: Yes Hx Diabetes: Yes Hx Renal Disease: Yes (T, Th, Sat) Hx Headaches / Migraines: Yes (Migraines) Hx HIV: Yes Additional medical history: HIV (on medication, unknown last CD4 count). gastroparesis - Surgical History Hx Cholecystectomy: Yes Additional Surgical History: Dialysis port in right chest. fistula in left arm - Social History Smoking Status: Never Smoker Review of Systems ROS: Stated complaint: dIZZINESS Other details as noted in HPI Comment: All other systems reviewed and negative Constitutional: denies: chills, fever Respiratory: shortness of breath Gastrointestinal: abdominal pain, nausea, vomiting. denies: diarrhea Medications and Allergies Allergies Allergy/AdvReac Type Severity Reaction Status Date / Time Penicillins Allergy Hives Verified 06/12/21 15:14 tramadol AdvReac Vomiting Verified 06/12/21 15:15 Home Medications Medication Instructions Recorded Confirmed Last Taken Type Acetaminophen [Acetaminophen TAB] 650 mg PO Q4H PRN tablet 05/10/19 01/05/21 06/07/19 07:00 Rx Darunavir [Prezista] 800 mg PO QDAY tablet 05/10/19 01/05/21 11/18/20 Rx Dolutegravir/Rilpivirine [Juluca 1 tab PO DAILY 11/19/20 01/05/21 11/18/20 History 50-25 mg Tablet] Baclofen [Lioresal] 10 mg PO QHS PRN #10 tablet 11/23/20 01/05/21 Unknown Rx cloNIDine-TTS PATCH [Catapres-Tts 0.2 mg TD We@1000 #4 patch 11/23/20 01/05/21 Unknown Rx 0.2mg Patch] Aspirin EC [Halfprin EC] 81 mg PO QDAY #100 tablet 01/09/21 Unknown Rx AtorvaSTATin [Lipitor] 40 mg PO QHS #30 tablet 01/09/21 Unknown Rx Clopidogrel [Plavix] 75 mg PO QDAY #30 tablet 01/09/21 Unknown Rx Darunavir [Prezista] 800 mg PO QDAY tablet 01/09/21 Unknown Rx Dolutegravir/Rilpivirine [Juluca 1 tab PO DAILY 01/09/21 Unknown Rx 50-25 mg Tablet] Epoetin Jv-Epbx 10,000 Unit 10,000 unit IV TORY PRN vial 01/09/21 Unknown Rx [Retacrit] Famotidine [Pepcid] 10 mg PO BID tablet 01/09/21 Unknown Rx Ferric Citrate (Nf) [Auryxia] 1 tab PO QDAY #30 01/09/21 Unknown Rx HYDROcodone/APAP 7.5-325 [[place] 1 each PO Q6H PRN #8 tablet 01/09/21 Unknown Rx 7.5-325 mg TAB] Insulin Aspart Prot/Aspart(Nf) 30 units SQ BID #2 vial 01/09/21 Unknown Rx [Novolog Mix 70/30] Insulin NPH/Regular [NovoLIN 70/30] 30 unit SUB-Q BIDDIAB 30 Days #2 01/09/21 Unknown Rx vial Losartan [Cozaar] 50 mg PO QDAY #30 tablet 01/09/21 Unknown Rx NIFEdipine XL [Procardia Xl] 60 mg PO QDAY #30 tablet 01/09/21 Unknown Rx hydrALAZINE [Apresoline TAB] 100 mg PO TID #90 tab 01/09/21 Unknown Rx labetaloL [Labetalol 100mg TAB] 300 mg PO BID #60 tablet 01/09/21 Unknown Rx Active Meds: Active Medications Clonidine HCl (Clonidine 0.1 Mg Tab) 0.1 mg PO TORY PRN PRN Reason: Hypertension Last Admin: 06/12/21 22:26 Dose: 0.1 mg Documented by: Sodium Chloride (Nacl 0.9%) 100 mls @ 999 mls/hr IV TORY PRN PRN Reason: Hypotension Exam - Constitutional Vitals: Temp Pulse Resp BP Pulse Ox 98.7 F 101 H 18 232/132 99 06/12/21 19:30 06/12/21 22:26 06/12/21 19:30 06/12/21 22:26 06/12/21 19:30 General appearance: Present: no acute distress, well-nourished - EENT Eyes: Present: PERRL ENT: hearing intact, clear oral mucosa - Neck Neck: Present: supple, normal ROM - Respiratory Respiratory effort: normal Respiratory: bilateral: CTA - Cardiovascular Heart rate: 78 Rhythm: regular Heart Sounds: Present: S1 & S2. Absent: rub, click - Extremities Extremities: pulses symmetrical, No edema Peripheral Pulses: within normal limits - Abdominal General gastrointestinal: Present: soft, non-tender, non-distended, normal bowel sounds Localized gastrointestinal: tender: diffuse Male genitourinary: Present: normal - Integumentary Integumentary: Present: clear, warm, dry - Musculoskeletal Musculoskeletal: gait normal, strength equal bilaterally - Psychiatric Psychiatric: appropriate mood/affect, intact judgment & insight - Neurologic Neurologic: CNII-XII intact, moves all extremities - Allied Health Allied health notes reviewed: nursing, case management Results - Labs CBC & Chem 7: 06/13/21 05:45 06/13/21 04:49 Labs: Laboratory Last Values WBC 8.2 K/mm3 (4.5-11.0) 06/12/21 15:08 RBC 3.78 M/mm3 (3.65-5.03) 06/12/21 15:08 Hgb 11.3 gm/dl (11.8-15.2) L 06/12/21 15:08 Hct 34.5 % (35.5-45.6) L 06/12/21 15:08 MCV 91 fl (84-94) 06/12/21 15:08 MCH 30 pg (28-32) 06/12/21 15:08 MCHC 33 % (32-34) 06/12/21 15:08 RDW 14.2 % (13.2-15.2) 06/12/21 15:08 Plt Count 264 K/mm3 (140-440) 06/12/21 15:08 Lymph % (Auto) 9.8 % (13.4-35.0) L 06/12/21 15:08 [place] % (Auto) 6.7 % (0.0-7.3) 06/12/21 15:08 Eos % (Auto) 1.6 % (0.0-4.3) 06/12/21 15:08 Baso % (Auto) 0.6 % (0.0-1.8) 06/12/21 15:08 Lymph # (Auto) 0.8 K/mm3 (1.2-5.4) L 06/12/21 15:08 [place] # (Auto) 0.6 K/mm3 (0.0-0.8) 06/12/21 15:08 Eos # (Auto) 0.1 K/mm3 (0.0-0.4) 06/12/21 15:08 Baso # (Auto) 0.0 K/mm3 (0.0-0.1) 06/12/21 15:08 Seg Neutrophils % 81.3 % (40.0-70.0) H 06/12/21 15:08 Seg Neutrophils # 6.7 K/mm3 (1.8-7.7) 06/12/21 15:08 Sodium 137 mmol/L (137-145) 06/12/21 15:08 Potassium 4.2 mmol/L (3.6-5.0) 06/12/21 15:08 Chloride 98.8 mmol/L (98-107) 06/12/21 15:08 Carbon Dioxide 19 mmol/L (22-30) L 06/12/21 15:08 Anion Gap 23 mmol/L 06/12/21 15:08 BUN 63 mg/dL (9-20) H 06/12/21 15:08 Creatinine 7.9 mg/dL (0.8-1.3) H 06/12/21 15:08 Estimated GFR 10 ml/min 06/12/21 15:08 BUN/Creatinine Ratio 8 % 06/12/21 15:08 Glucose 143 mg/dL (75-100) H 06/12/21 15:08 Calcium 8.6 mg/dL (8.4-10.2) 06/12/21 15:08 Total Bilirubin 0.80 mg/dL (0.1-1.2) 06/12/21 15:33 Direct Bilirubin 0.2 mg/dL (0-0.2) 06/12/21 15:33 Indirect Bilirubin 0.6 mg/dL 06/12/21 15:33 AST 15 units/L (5-40) 06/12/21 15:33 ALT 9 units/L (7-56) 06/12/21 15:33 Alkaline Phosphatase 80 units/L (35-129) 06/12/21 15:33 Total Protein 7.7 g/dL (6.3-8.2) 06/12/21 15:33 Albumin 4.2 g/dL (3.9-5) 06/12/21 15:33 Albumin/Globulin Ratio 1.2 % 06/12/21 15:33 Short CBC 06/12/21 06/13/21 Range/Units 15:08 05:45 WBC 8.2 7.8 (4.5-11.0) K/mm3 Hgb 11.3 L 10.3 L (11.8-15.2) gm/dl Hct 34.5 L 31.3 L (35.5-45.6) % Plt Count 264 247 (140-440) K/mm3 BMP 06/12/21 06/13/21 15:08 04:49 Sodium 137 136 L Potassium 4.2 3.6 Chloride 98.8 97.4 L Carbon Dioxide 19 L 22 BUN 63 H 50 H Creatinine 7.9 H Glucose 143 H 120 H Calcium 8.6 8.3 L Liver Function 06/12/21 06/13/21 Range/Units 15:33 04:49 Total Bilirubin 0.80 0.80 (0.1-1.2) mg/dL Direct Bilirubin 0.2 (0-0.2) mg/dL AST 15 33 (5-40) units/L ALT 9 23 (7-56) units/L Alkaline Phosphatase 80 92 (35-129) units/L Albumin 4.2 3.5 L (3.9-5) g/dL - Imaging and Cardiology CT scan - abdomen: report reviewed Imaging and Cardiology: Abdominal pelvis CT Small bilateral pleural effusions with pulmonary edema in the lung bases No acute intra-abdominal or intrapelvic findings Assessment and Plan Advance Directives: Yes (Full code) VTE prophylaxis?: Chemical Plan of care discussed with patient/family: Yes - Patient Problems (1) Hypertensive emergency Current Visit: Yes Status: Acute Plan to address problem: Patient started on his home antihypertensives IV hydralazine 10 mg now and IV hydralazine every 3 hours as needed Noncompliance is an issue Counseled (2) Volume overload Current Visit: Yes Status: Acute Plan to address problem: Patient being taken for emergent hemodialysis Increased ultrafiltration (3) IDDM (insulin dependent diabetes mellitus) Current Visit: Yes Status: Chronic Plan to address problem: Coverage for now Check hemoglobin A1c Resume home insulin once he starts eating normally (4) Gastroparesis Current Visit: Yes Status: Chronic Plan to address problem: Symptomatic treatment for now (5) ESRD needing dialysis Current Visit: Yes Status: Acute Plan to address problem: Patient being taken for emergent hemodialysis Dr. Peralta consulted (6) HIV (human immunodeficiency virus infection) Current Visit: Yes Status: Chronic Qualifiers: HIV symptom status: asymptomatic, with no history of HIV-related illness Qualified Code(s): Z21 - Asymptomatic human immunodeficiency virus [HIV] infection status Plan to address problem: On antiretrovirals (7) Hyperlipidemia Current Visit: Yes Status: Chronic Qualifiers: Hyperlipidemia type: mixed hyperlipidemia Qualified Code(s): E78.2 - Mixed hyperlipidemia Plan to address problem: On statins (8) Anemia Current Visit: Yes Status: Chronic Qualifiers: Anemia type: due to chronic kidney disease Plan to address problem: Secondary to end-stage renal disease Epogen as scheduled (9) DVT prophylaxis Current Visit: Yes Status: Acute Plan to address problem: On anticoagulation and GI prophylaxis (10) Discharge planning issues Current Visit: Yes Status: Acute Plan to address problem: Patient admitted observation status Patient may be discharged in 23 hours stable for discharge Patient had hemodialysis today
[2021-06-12] MEDS ORDERED: METOCLOPRAMIDE 10 MG/2 ML INJ IV PRN (22:46)
[2021-06-12] MEDS ORDERED: hydrALAZINE 20 MG/1 ML INJ ONE (22:48)
[2021-06-12 22:50] LABS: Hepatitis C Virus Antibody Non-Reactive (NonReactive)
[2021-06-12 23:14] LABS: Hepatitis B Surface Antigen Nonreactive (Negative)
[2021-06-12] MEDS: HYDROmorphone 1 MG/1 ML INJ IV PRN ×2 (23:26→23:29)
[2021-06-13] MEDS: HEPARIN 5,000 UNIT/1 ML VIAL SUB-Q SCH ×3 (00:39→21:26)
[2021-06-13] MEDS: ONDANSETRON 4 MG/2 ML INJ IV PRN ×3 (01:37→14:17)
[2021-06-13] MEDS: NIFEdipine XL 60 MG TAB PO SCH (05:23)
[2021-06-13] MEDS: HYDROmorphone 1 MG/1 ML INJ IV PRN ×3 (05:28→21:34)
[2021-06-13 06:14] LABS: Basophils % (Auto) 0.6 % (0.0-1.8); Eosinophils # (Auto) 0.1 K/mm3 (0.0-0.4); Eosinophils % (Auto) 1.5 % (0.0-4.3); Hematocrit 31.3 % (35.5-45.6); Hemoglobin 10.3 gm/dl (11.8-15.2); Lymphocytes # (Auto) 0.6 K/mm3 (1.2-5.4); Lymphocytes % (Auto) 8.1 % (13.4-35.0); Mean Corpuscular HGB Conc 33 % (32-34); Mean Corpuscular Volume 91 fl (84-94); Monocytes # (Auto) 0.5 K/mm3 (0.0-0.8); Monocytes % (Auto) 6.1 % (0.0-7.3); Platelet Count 247 K/mm3 (140-440); Red Blood Count 3.43 M/mm3 (3.65-5.03); Red Cell Distribution Width 14.3 % (13.2-15.2)
[2021-06-13 06:43] LABS: Albumin 3.5 g/dL (3.9-5); Calcium 8.3 mg/dL (8.4-10.2)
--- NOTE | 2021-06-13 07:58 | Consultation ---
History of Present Illness - Reason for Consult Consult date: 06/13/21 end stage renal disease Requesting physician: OPAL FRANKS - History of Present Illness 36-year-old male with a history of hypertension, diabetes mellitus, HIV and end- stage renal disease on hemodialysis on Thursday, and Thursday schedule. Presents on account of right lower quadrant abdominal pain of 2 days duration. It was a sharp pain constant with exacerbations rated at a 10/10. It was associated with nausea and vomiting. No fever or chills. Patient missed dialysis on Thursday on account of the pain. He was last dialysis on Thursday was complicated by prolonged bleeding for 1-1/2 hours from the AV fistula at the end of the treatment. Patient developed shortness of breath on the day of presentation with occasional chest pain and states he actually passed out in the bathroom. I was called about him yesterday and ordered emergency dialysis for fluid overload. His venous pressures were very high and he was unable to complete dialysis. He also developed hypotension. Past History Past Medical History: CAD, diabetes, ESRD, HIV/AIDS, hypertension, hyperlipidemia, other (Diabetic gastroparesis) Past Surgical History: Other (Left AV fistula) Social history: Lives alone. denies: smoking, prescription drug abuse, IV drug use Family history: diabetes, hypertension Medications and Allergies Allergies Allergy/AdvReac Type Severity Reaction Status Date / Time Penicillins Allergy Hives Verified 06/12/21 15:14 tramadol AdvReac Vomiting Verified 06/12/21 15:15 Home Medications Medication Instructions Recorded Confirmed Last Taken Type Dolutegravir/Rilpivirine [Juluca 1 tab PO DAILY 11/19/20 06/13/21 06/12/21 History 50-25 mg Tablet] Clopidogrel [Plavix] 75 mg PO QDAY #30 tablet 01/09/21 06/13/21 06/12/21 Rx Darunavir [Prezista] 800 mg PO QDAY tablet 01/09/21 06/13/21 06/12/21 Rx hydrALAZINE [Apresoline TAB] 100 mg PO TID #90 tab 01/09/21 06/13/21 06/12/21 Rx Aspirin EC [Halfprin EC] 81 mg PO QDAY tablet 06/13/21 Unknown Rx AtorvaSTATin [Lipitor] 40 mg PO QHS tablet 06/13/21 Unknown Rx Baclofen [Lioresal] 10 mg PO QHS PRN tablet 06/13/21 Unknown Rx Darunavir [Prezista] 800 mg PO QDAY tablet 06/13/21 Unknown Rx Famotidine [Pepcid] 10 mg PO BID tablet 06/13/21 Unknown Rx Ferric Citrate (Nf) 1 tab PO QDAY 06/13/21 Unknown Rx Lispro Insulin [HumaLOG] 30 unit SUB-Q BIDDIAB units 06/13/21 Unknown Rx Losartan [Cozaar] 50 mg PO QDAY tablet 06/13/21 Unknown Rx NIFEdipine XL [Procardia Xl] 60 mg PO QDAY@0600 tablet 06/13/21 Unknown Rx cloNIDine [Catapres] 0.1 mg PO TORY PRN tablet 06/13/21 Unknown Rx labetaloL [Labetalol 100mg TAB] 300 mg PO BID tablet 06/13/21 Unknown Rx Active Meds: Active Medications Acetaminophen (Acetaminophen 325 Mg Tab) 650 mg PO Q4H PRN PRN Reason: Pain MILD(1-3)/Fever >100.5/CHOUDHARY Aspirin (Aspirin Ec 81 Mg Tab) 81 mg PO QDAY [facility] Atorvastatin Calcium (Atorvastatin 40 Mg Tab) 40 mg PO QHS SHIRA Baclofen (Baclofen 10 Mg Tab) 10 mg PO QHS PRN PRN Reason: Muscle Spasm Clonidine HCl (Clonidine 0.1 Mg Tab) 0.1 mg PO TORY PRN PRN Reason: Hypertension Last Admin: 06/12/21 22:26 Dose: 0.1 mg Documented by: Clopidogrel Bisulfate (Clopidogrel 75 Mg Tab) 75 mg PO QDAY [facility] Darunavir (Darunavir 800 Mg Tab) 800 mg PO QDAY [facility] Famotidine (Famotidine 10 Mg Tab) 10 mg PO BID [facility] Heparin Sodium (Porcine) (Heparin 5,000 Unit/1 Ml Vial) 5,000 unit SUB-Q Q12HR SHIRA Last Admin: 06/13/21 00:39 Dose: 5,000 unit Documented by: Hydralazine HCl (Hydralazine 100 Mg Tab) 100 mg PO TID SHIRA Hydromorphone HCl (Hydromorphone 1 Mg/1 Ml Inj) 0.5 mg IV Q3H PRN PRN Reason: Pain , Severe (7-10) Last Admin: 06/13/21 05:28 Dose: 0.5 mg Documented by: Sodium Chloride (Nacl 0.9%) 100 mls @ 999 mls/hr IV TORY PRN PRN Reason: Hypotension Insulin Human Lispro (Insulin Lispro 100 Unit/Ml) 30 unit SUB-Q BIDDIAB [facility] Labetalol HCl (Labetalol 100 Mg Tab) 100 mg PO BID [facility] Last Admin: 06/13/21 00:40 Dose: 100 mg Documented by: Labetalol HCl (Labetalol 200 Mg Tab) 200 mg PO BID [facility] Last Admin: 06/13/21 00:40 Dose: 200 mg Documented by: Losartan Potassium (Losartan 50 Mg Tab) 50 mg PO QDAY [facility] Metoclopramide HCl (Metoclopramide 10 Mg/2 Ml Inj) 5 mg IV Q6H PRN PRN Reason: Nausea And Vomiting Miscellaneous Medication (Dolutegravir/Rilpivirine [Juluca 50-25 Mg Tablet]) 1 tab PO DAILY [facility] Miscellaneous Medication (Ferric Citrate (Nf)) 1 tab PO QDAY [facility] Nifedipine (Nifedipine Xl 60 Mg Tab) 60 mg PO QDAY@0600 [facility] Last Admin: 06/13/21 05:23 Dose: 60 mg Documented by: Ondansetron HCl (Ondansetron 4 Mg/2 Ml Inj) 4 mg IV Q3H PRN PRN Reason: Nausea And Vomiting Last Admin: 06/13/21 05:33 Dose: 4 mg Documented by: Oxycodone/Acetaminophen (Oxycodone /Acetaminophen 5-325mg Tab) 1 tab PO Q6H PRN PRN Reason: Pain, Moderate (4-6) Sodium Chloride (Sodium Chloride 0.9% 10 Ml Flush Syringe) 10 ml IV BID [facility] Sodium Chloride (Sodium Chloride 0.9% 10 Ml Flush Syringe) 10 ml IV PRN PRN PRN Reason: LINE FLUSH Review of Systems All systems: negative (Constitutional: no fever or chills. Admits to anorexia. No Wt loss. HEENT: No sore throat admits to sinus drainage no hearing or vision impairment . Cardiovascular: Admits to chest pain and shortness of breath, palpitations, admits to LE swelling and dizziness. Respiratory: No cough, sputum, SOB) Gastrointestinal: abdominal pain, nausea, vomiting, no diarrhea, no constipation, no hematemesis, no coffee ground emesis, no melena, no hematochezia Musculoskeletal: arthritis, other (Admits to joint pain and stiffness) Integumentary: pruritis (Admits to itching in his thighs), no rash, no redness, no sores Neurological: headaches, no numbness, no tingling, no seizures, no syncope Psychiatric: anxiety, depression Endocrine: other (Blood sugar has been running around 130-150), no cold intolerance, no heat intolerance Hematologic/Lymphatic: no easy bruising, no easy bleeding Exam - Vital Signs Vital signs: Vital Signs Temp Pulse Resp BP Pulse Ox 98.8 F 107 H 16 201/119 95 06/12/21 14:02 06/12/21 14:02 06/12/21 14:02 06/12/21 14:02 06/12/21 14:02 - Physical Exam Narrative exam: Young male lying in bed in no acute distress HEENT: NCAT, pink oral mucous membrane Neck: Supple, no venous distention CVS: S1S2 RRR with no murmur, rub or gallop Chest: Diminished breath sounds in the lower zones Abdomen: Protuberant, soft, mild tenderness in the right upper quadrant, no organomegaly, bowel sounds are present Extremities: No edema, left upper extremity AV fistula with dressing intact with good bruit Genitourinary deferred Skin warm and dry with no rash Neuro: Awake, alert no focal deficits Results - Lab Results 06/13/21 05:45 06/13/21 04:49 Most recent lab results Calcium 8.3 mg/dL (8.4-10.2) L 06/13/21 04:49 Assessment and Plan - Patient Problems (1) Acute pulmonary edema Current Visit: Yes Status: Acute Plan to address problem: Acute pulmonary edema secondary to fluid overload in a patient with end-stage renal disease who missed dialysis. Hemodialysis for fluid removal (2) Fluid overload Current Visit: Yes Status: Acute Plan to address problem: Fluid overload secondary to missed dialysis. Counseled on importance of adhering to dialysis regimen (3) Gastroparesis Current Visit: Yes Status: Chronic Plan to address problem: Nausea vomiting with abdominal pain may be related to exacerbation of gastropa resis. Start antiemetics and observe for improvement (4) Metabolic acidosis Current Visit: Yes Status: Acute Plan to address problem: Metabolic acidosis secondary to missed dialysis. Hemodialysis today after angioplasty and follow-up bicarbonate (5) ESRD needing dialysis Current Visit: Yes Status: Acute Plan to address problem: Prolonged bleeding with increased venous pressures consistent with venous ou tflow stenosis. Consult vascular surgeon for fistulogram and angioplasty. Hemodialysis thereafter. I communicated with Dr. Bassem Wade the vascular surgeon (6) Type 2 diabetes mellitus with diabetic chronic kidney disease Current Visit: No Status: Acute Plan to address problem: Blood sugar management by primary attending (7) HIV (human immunodeficiency virus infection) Current Visit: No Status: Chronic Qualifiers: HIV symptom status: unspecified Qualified Code(s): B20 - Human immunodeficiency virus [HIV] disease Plan to address problem: Continue antiretroviral therapy (8) Hypertensive chronic kidney disease with stage 5 chronic kidney disease or end stage renal disease Current Visit: No Status: Chronic Plan to address problem: Follow-up blood pressure on current medications (9) Anemia in end-stage renal disease Current Visit: Yes Status: Acute Plan to address problem: Given erythropoietin on dialysis
[2021-06-13] MEDS: LOSARTAN 50 MG TAB PO SCH (09:21)
[2021-06-13] MEDS: INSULIN LISPRO 100 UNIT/ML SUB-Q SCH ×2 (09:21→17:06)
[2021-06-13] MEDS: CLOPIDOGREL 75 MG TAB PO SCH (09:22)
[2021-06-13] MEDS: FAMOTIDINE 10 MG TAB PO SCH ×2 (09:22→21:25)
[2021-06-13] MEDS: hydrALAZINE 100 MG TAB PO SCH ×3 (09:22→21:26)
[2021-06-13] MEDS: ASPIRIN EC 81 MG TAB PO SCH (09:22)
[2021-06-13] MEDS ORDERED: RILPIVIRINE PO SCH (10:00)
[2021-06-13] MEDS ORDERED: NON-FORMULARY EACH (Ferric Citrate (Nf) 210 MG Tablet) PO SCH (10:00)
[2021-06-13] MEDS ORDERED: DARUNAVIR 800 MG TAB PO SCH (10:00)
[2021-06-13] MEDS ORDERED: NON-FORMULARY EACH (Insulin Aspart Prot/Aspart(Nf) 100 UNITS/ML Units) SQ SCH (10:00)
[2021-06-13] MEDS ORDERED: DOLUTEGRAVIR PO SCH (10:00)
[2021-06-13] MEDS ORDERED: NON-FORMULARY EACH (Dolutegravir/Rilpivirine [Juluca 50-25 Mg Tablet] 1 EACH Tablet) PO SCH (10:00)
[2021-06-13] MEDS ORDERED: fentaNYL 100 MCG/2 ML INJ ONE (10:02)
[2021-06-13] MEDS ORDERED: MIDAZOLAM 2 MG/2 ML INJ ONE (10:02)
[2021-06-13] MEDS ORDERED: HEPARIN 10,000 UNITS/10 ML VIAL ONE (10:02)
[2021-06-13] MEDS ORDERED: HEPARIN/NS 5000 UNIT/500ML 1,000 ML IR ONE (10:02)
[2021-06-13] MEDS ORDERED: LIDOCAINE (2%) 20 MG/1 ML VIAL 20 ML MDV INFILTRATI ONE (10:03)
[2021-06-13] MEDS ORDERED: VERAPAMIL 5 MG/2 ML INJ ONE (10:03)
[2021-06-13] MEDS ORDERED: NITROGLYCERIN SYRINGE 0 ML ONE (10:03)
[2021-06-13] MEDS ORDERED: SODIUM CHLORIDE 0.9% 250ML 250 ML ONE (10:03)
[2021-06-13] MEDS ORDERED: ONDANSETRON 4 MG/2 ML INJ ONE (10:03)
[2021-06-13] MEDS ORDERED: ONDANSETRON 4 MG/2 ML INJ IV ONE (10:05)
[2021-06-13] MEDS ORDERED: fentaNYL 100 MCG/2 ML INJ IV ONE (10:40)
[2021-06-13] MEDS ORDERED: MIDAZOLAM 2 MG/2 ML INJ IV ONE (10:40)
[2021-06-13] MEDS ORDERED: VERAPAMIL 5 MG/2 ML INJ IV ONE (10:52)
--- NOTE | 2021-06-13 10:59 | Operative Report ---
Operative Report Operative Report: Exam: Left upper extremity fistulogram with venoplasty Clinical indication: Patient with a history of left upper extremity brachiobasilic fistula with prolonged bleeding Date: 06/13/2021 Procedure: Following an explanation of the risks, benefits and alternatives; written informed consent was obtained. The patient was brought to the angiographic suite and placed in supine position on the examination table. Initial evaluation of the fistula demonstrated a palpable thrill. The patient's left upper arm was prepped and draped in the usual sterile fashion. 1% lidocaine was used for anesthesia. Under ultrasound guidance, the fistula was cannulated towards the venous outflow using a 7 cm 21-gauge needle. A 0.018 guidewire was advanced centrally. The needle was removed and a microsheath placed. The 0.018 guidewire was exchanged for a 0.035 guidewire and the micro sheath exchanged for a 7 Pashto vascular sheath. Contrast was injected and imaging obtained at multiple locations throughout the fistula for the sheath insertion site into the central veins. The central veins are patent. There is a 60% stenosis within the venous outflow above the level of the previously placed stents. The stents are patent. There appears to be some areas of irregularity within the stent summers likely secondary to cannulation. An 8 mm x 40 mm balloon was then advanced across the lesion in the venous outflow and insufflated to nominal atmospheres for 1 minute. Post venoplasty imaging demonstrated brisk flow with decrease of the stenosis to approximately 30%. The catheters, guidewires and sheaths were removed and hemostasis achieved using 3-0 Vicryl suture and manual compression. A sterile dressing was applied. The patient tolerated the procedure well. There were no immediate postprocedure complications. Conscious sedation was performed under the guidance of radiologic nursing. Continuous cardiopulmonary monitoring was utilized. Impression: 1) Left upper extremity fistulogram with venoplasty of the venous outflow above the level of the previously placed stents. 2) The patient will follow up in our office in 1 to 2 weeks for planned revision of his fistula given the numerous stents within the fistula
--- NOTE | 2021-06-13 11:55 | Discharge Summary ---
Providers - Providers Date of Admission: 06/12/21 17:30 Attending physician: XOCHITL OSULLIVAN MD 06/12/21 17:28 Consult to Physician [CONS] Stat Comment: Consulting Provider: TIMOTEO SABA Physician Instructions: Reason For Exam: esrd needing dialysis 06/12/21 22:46 Consult to Physician [CONS] Routine Comment: Consulting Provider: YONAS ALMANZAR Physician Instructions: Reason For Exam: AV fistula malfunction 06/13/21 07:56 Consult to Physician [CONS] Urgent Comment: Consulting Provider: BABAR VENTURA Physician Instructions: Reason For Exam: Renal failure needs fistulogram due to prolonged b Primary care physician: CONTROL PANEL ASSEMBLER Hospitalization Reason for admission: Shortness of breath Condition: Stable Hospital course: 36-year-old male with history of hypertension, hyperlipidemia, coronary artery disease, HIV, gastroparesis comes to the emergency room for right lower quadrant pain for the last couple days. Patient also has associated nausea and vomiting. Denies any fever. Patient missed 2 dialysis sessions. Increasing shortness of breath and orthopnea present. No fever or chills. Patient seen and examined today resting comfortably reports that shortness of breath is improving his normal blood pressure systolic is 180s. He did proceed to have vascular procedure for left upper extremity brachiobasilic fistula with prolonged bleeding which was done successfully and he is to follow with vascular in 1 to 2 weeks for planned revision. He is undergoing dialysis at this time blood pressure has improved and can be discharged if okay with vegetable preparer. (1) Hypertensive emergency with chronic accelerated hypertension on ESRD secondary to missed dialysis Current Visit: Yes Status: Acute Plan to address problem: Patient started on his home antihypertensives IV hydralazine 10 mg now and IV hydralazine every 3 hours as needed Noncompliance is an issue Counseled (2) Volume overload secondary to missed dialysis Current Visit: Yes Status: Acute Plan to address problem: Patient being taken for emergent hemodialysis Increased ultrafiltration (3) IDDM (insulin dependent diabetes mellitus) Current Visit: Yes Status: Chronic Plan to address problem: Coverage for now Check hemoglobin A1c Resume home insulin once he starts eating normally (4) Gastroparesis Current Visit: Yes Status: Chronic Plan to address problem: Symptomatic treatment for now (5) ESRD needing dialysis Current Visit: Yes Status: Acute Plan to address problem: Patient being taken for emergent hemodialysis Dr. Peralta consulted (6) HIV (human immunodeficiency virus infection) Current Visit: Yes Status: Chronic Qualifiers: HIV symptom status: asymptomatic, with no history of HIV-related illness Qualified Code(s): Z21 - Asymptomatic human immunodeficiency virus [HIV] infection status Plan to address problem: On antiretrovirals (7) Hyperlipidemia Current Visit: Yes Status: Chronic Qualifiers: Hyperlipidemia type: mixed hyperlipidemia Qualified Code(s): E78.2 - Mixed hyperlipidemia Plan to address problem: On statins (8) malfunctioning left upper extremity brachial basilic fistula with prolonged bleeding status post Left upper extremity fistulogram with venoplasty of the venous outflow above the level of the previously placed stents. Acute dyspnea with respiratory failure Morbidly obese 15 minutes counseling on weight loss and lifestyle change with preventive care plan patient verbalized understanding anemia Current Visit: Yes Status: Chronic Qualifiers: Anemia type: due to chronic kidney disease Plan to address problem: Secondary to end-stage renal disease Epogen as scheduled Disposition: HOME / SELF CARE / HOMELESS Final Discharge Diagnosis (Prints w/discharge instructions): Acute hypoxic resp iratory failure secondary to missed dialysis and volume overload due to malfunctioning left upper extremity brachial basilic fistula with prolonged bleeding status post Left upper extremity fistulogram with venoplasty of the venous outflow above the level of the previously placed stents. Time spent for discharge: 35-minute Core Measure Documentation - Palliative Care Palliative Care/ Comfort Measures: Not Applicable - Core Measures Any of the following diagnoses?: none Exam - Physical Exam Narrative exam: VITAL SIGNS: Reviewed. GENERAL: The patient appears normally developed, morbidly obese vital signs as documented. HEAD: No signs of head trauma. EYES: Pupils are equal. Extraocular motions intact. EARS: Hearing grossly intact. MOUTH: Oropharynx is normal. NECK: No adenopathy, no JVD. CHEST: Chest with clear breath sounds bilaterally. No wheezes, rales, or rhonchi. CARDIAC: Regular rate and rhythm. S1 and S2, without murmurs, gallops, or rubs. VASCULAR: Left upper extremity fistula no Edema. Peripheral pulses normal and equal in all extremities. ABDOMEN: Soft, non tender and non distended. No rebound or guarding, and no masses palpated. Bowel Sounds normal. MUSCULOSKELETAL: Good range of motion of all major joints. Extremities without clubbing, cyanosis or edema. NEUROLOGIC EXAM: Alert and oriented x 3 No focal sensory or strength deficits. Speech normal. Follows commands. PSYCHIATRIC: Mood normal. SKIN: detail exam as documented in skin assessment - Constitutional Vitals: Temp Pulse Resp BP Pulse Ox 98.3 F 89 16 170/76 91 06/13/21 11:10 06/13/21 11:45 06/13/21 11:10 06/13/21 11:45 06/13/21 11:10 Plan Activity: advance as tolerated, fall precautions Diet: diabetic, renal Special Instructions: record daily weights, record daily BP diary, record blood sugar diary Follow up with: PRIMARY MD MYRNA [Primary Care Provider] - 3-5 Days TIMOTEO SABA MD [Staff Physician] - 7 Days YONAS AVILA MD [Staff Physician] - 7 Days
[2021-06-13] MEDS ORDERED: SODIUM CHLORIDE 0.9% 100 ML IV PRN (13:32)
[2021-06-13] MEDS: oxyCODONE /ACETAMINOPHEN 5-325MG TAB PO PRN (21:27)
[2021-06-14] MEDS: NIFEdipine XL 60 MG TAB PO SCH (05:46)
[2021-06-14] MEDS: HYDROmorphone 1 MG/1 ML INJ IV PRN ×3 (05:46→13:52)
[2021-06-14] MEDS ORDERED: NIFEdipine XL 60 MG TAB PO SCH (07:26)
[2021-06-14] MEDS: INSULIN LISPRO 100 UNIT/ML SUB-Q SCH ×2 (07:29→18:13)
[2021-06-14] MEDS: ONDANSETRON 4 MG/2 ML INJ IV PRN (07:49)
[2021-06-14] MEDS: hydrALAZINE 100 MG TAB PO SCH ×2 (07:50→13:51)
--- NOTE | 2021-06-14 09:00 | Electrocardiograph Report ---
[facility] Test Date: 2021-06-12 Test Time: 14:27:03 Pat Name: COLEMAN COLE III Department: Room: A453 1 Gender: M Manager Card: NURSE : 1985 Requested By: XOCHITL OSULLIVAN Order Number: [id number] Reading MD: Power Dia Measurements Intervals [place] Rate: 107 P: 58 MI: 142 QRS: 13 QRSD: 83 T: 117 QT: 376 QTc: 502 Interpretive Statements Sinus tachycardia Nonspecific T abnormalities, lateral leads Prolonged QT interval Compared to ECG 01/04/2021 03:21:40 Prolonged QT interval now present T-wave abnormality still present Electronically Signed On 06-14-2021 9:00:24 EST by Power Dia
[2021-06-14] MEDS: FAMOTIDINE 10 MG TAB PO SCH (09:41)
[2021-06-14] MEDS: HEPARIN 5,000 UNIT/1 ML VIAL SUB-Q SCH (09:41)
[2021-06-14] MEDS: ASPIRIN EC 81 MG TAB PO SCH (09:41)
[2021-06-14] MEDS: CLOPIDOGREL 75 MG TAB PO SCH (09:41)
--- NOTE | 2021-06-14 11:01 | Progress Note ---
Assessment and Plan - Patient Problems (1) Acute pulmonary edema Current Visit: Yes Status: Acute Plan to address problem: Acute pulmonary edema secondary to fluid overload in a patient with end-stage renal disease who missed dialysis. Hemodialysis for fluid removal today. Okay to discharge from renal perspective after dialysis if tolerated (2) Fluid overload Current Visit: Yes Status: Acute Plan to address problem: Fluid overload secondary to missed dialysis. Counseled on importance of adhering to dialysis regimen (3) Gastroparesis Current Visit: Yes Status: Chronic Plan to address problem: Nausea vomiting with abdominal pain may be related to exacerbation of gastroparesis. Symptoms have improved with treatments. (4) Metabolic acidosis Current Visit: Yes Status: Acute Plan to address problem: Metabolic acidosis secondary to missed dialysis. Improved with dialysis. (5) ESRD needing dialysis Current Visit: Yes Status: Acute Plan to address problem: Prolonged bleeding with increased venous pressures consistent with venous outflow stenosis. Status post venoplasty of venous outflow stenosis. Hemodialysis today and then okay to discharge from renal perspective (6) Type 2 diabetes mellitus with diabetic chronic kidney disease Current Visit: No Status: Acute Plan to address problem: Blood sugar management by primary attending (7) HIV (human immunodeficiency virus infection) Current Visit: No Status: Chronic Qualifiers: HIV symptom status: unspecified Qualified Code(s): B20 - Human immunodeficiency virus [HIV] disease Plan to address problem: Continue antiretroviral therapy (8) Hypertensive chronic kidney disease with stage 5 chronic kidney disease or end stage renal disease Current Visit: No Status: Chronic Plan to address problem: Follow-up blood pressure on current medications (9) Anemia in end-stage renal disease Current Visit: Yes Status: Acute Plan to address problem: Given erythropoietin on dialysis Subjective Date of service: 06/14/21 Principal diagnosis: End-stage renal disease on hemodialysis Interval history: Patient seen lying in bed. No new complaints. No chest pain or shortness of breath. No nausea vomiting. Was unable to complete dialysis yesterday. He had fistulogram and venoplasty of venous outflow stenosis Objective - Exam Narrative Exam: Young male lying in bed in no acute distress HEENT: NCAT, pink oral mucous membrane Neck: Supple, no venous distention CVS: S1S2 RRR with no murmur, rub or gallop Chest: Diminished breath sounds in the lower zones Abdomen: Protuberant, soft, mild tenderness in the right upper quadrant, no organomegaly, bowel sounds are present Extremities: No edema, left upper extremity AV fistula with dressing intact with good bruit Genitourinary deferred Skin warm and dry with no rash Neuro: Awake, alert no focal deficits - Vital Signs Vital signs: Vital Signs - 12hr 06/13/21 06/13/21 06/14/21 23:00 23:48 03:31 Temperature 100.0 F H 99.0 F Pulse Rate 104 H 91 H Pulse Rate [ From Monitor] Respiratory 18 16 16 Rate Blood Pressure 156/90 126/77 O2 Sat by Pulse 98 89 88 Oximetry 06/14/21 06/14/21 06/14/21 03:32 07:20 07:25 Temperature 98.6 F Pulse Rate 92 H Pulse Rate [ 88 From Monitor] Respiratory 18 18 Rate Blood Pressure 135/80 O2 Sat by Pulse 94 98 91 Oximetry - Lab 06/13/21 05:45 06/13/21 04:49 Most recent lab results Calcium 8.3 mg/dL (8.4-10.2) L 06/13/21 04:49 Medications & Allergies - Medications Allergies/Adverse Reactions: Allergies Penicillins Allergy (Verified 06/12/21 15:14) Hives tramadol Adverse Reaction (Verified 06/12/21 15:15) Vomiting Home Medications: Home Medications Medication Instructions Recorded Confirmed Last Taken Type Dolutegravir/Rilpivirine [Juluca 1 tab PO DAILY 11/19/20 06/13/21 06/12/21 History 50-25 mg Tablet] Clopidogrel [Plavix] 75 mg PO QDAY #30 tablet 01/09/21 06/13/21 06/12/21 Rx Darunavir [Prezista] 800 mg PO QDAY tablet 01/09/21 06/13/21 06/12/21 Rx hydrALAZINE [Apresoline TAB] 100 mg PO TID #90 tab 01/09/21 06/13/21 06/12/21 Rx Aspirin EC [Halfprin EC] 81 mg PO QDAY tablet 06/13/21 Unknown Rx AtorvaSTATin [Lipitor] 40 mg PO QHS tablet 06/13/21 Unknown Rx Baclofen [Lioresal] 10 mg PO QHS PRN tablet 06/13/21 Unknown Rx Darunavir [Prezista] 800 mg PO QDAY tablet 06/13/21 Unknown Rx Famotidine [Pepcid] 10 mg PO BID tablet 06/13/21 Unknown Rx Ferric Citrate (Nf) 1 tab PO QDAY 06/13/21 Unknown Rx Lispro Insulin [HumaLOG] 30 unit SUB-Q BIDDIAB units 06/13/21 Unknown Rx Losartan [Cozaar] 50 mg PO QDAY tablet 06/13/21 Unknown Rx NIFEdipine XL [Procardia Xl] 60 mg PO QDAY@0600 tablet 06/13/21 Unknown Rx cloNIDine [Catapres] 0.1 mg PO TORY PRN tablet 06/13/21 Unknown Rx labetaloL [Labetalol 100mg TAB] 300 mg PO BID tablet 06/13/21 Unknown Rx Active Medications: Generic Name Dose Route Start Last Admin Trade Name Freq PRN Reason Stop Dose Admin Acetaminophen 650 mg 06/12/21 22:43 06/14/21 01:46 Acetaminophen 325 Mg Tab PO 650 mg Q4H PRN Administration Pain MILD(1-3)/Fever >100.5/CHOUDHARY Aspirin 81 mg 06/13/21 10:00 06/14/21 09:41 Aspirin Ec 81 Mg Tab PO 81 mg QDAY SHIRA Administration Atorvastatin Calcium 40 mg 06/13/21 22:00 06/13/21 21:25 Atorvastatin 40 Mg Tab PO 40 mg QHS SHIRA Administration Baclofen 10 mg 06/12/21 22:43 Baclofen 10 Mg Tab PO QHS PRN Muscle Spasm Clonidine HCl 0.1 mg 06/12/21 21:49 06/12/21 22:26 Clonidine 0.1 Mg Tab PO 0.1 mg TORY PRN Administration Hypertension Clopidogrel Bisulfate 75 mg 06/13/21 10:00 06/14/21 09:41 Clopidogrel 75 Mg Tab PO 75 mg QDAY SHIRA Administration Darunavir 800 mg 06/13/21 10:00 Darunavir 800 Mg Tab PO QDAY SHIRA Famotidine 10 mg 06/13/21 10:00 06/14/21 09:41 Famotidine 10 Mg Tab PO 10 mg BID SHIRA Administration Heparin Sodium (Porcine) 5,000 unit 06/12/21 23:00 06/14/21 09:41 Heparin 5,000 Unit/1 Ml Vial SUB-Q 5,000 unit Q12HR SHIRA Administration Hydralazine HCl 100 mg 06/13/21 08:00 06/13/21 21:26 Hydralazine 100 Mg Tab PO 100 mg TID SHIRA Administration Hydromorphone HCl 0.5 mg 06/12/21 22:46 06/14/21 09:39 Hydromorphone 1 Mg/1 Ml Inj IV 0.5 mg Q3H PRN Administration Pain , Severe (7-10) Sodium Chloride 100 mls @ 999 mls/hr 06/13/21 13:32 Nacl 0.9% IV TORY PRN Hypotension Insulin Human Lispro 30 unit 06/13/21 08:00 06/14/21 07:29 Insulin Lispro 100 Unit/Ml SUB-Q Not Given BIDDIAB SHIRA Labetalol HCl 100 mg 06/12/21 23:00 06/13/21 21:25 Labetalol 100 Mg Tab PO 100 mg BID SHIRA Administration Labetalol HCl 200 mg 06/13/21 00:00 06/13/21 21:26 Labetalol 200 Mg Tab PO 200 mg BID SHIRA Administration Losartan Potassium 50 mg 06/13/21 10:00 06/13/21 09:21 Losartan 50 Mg Tab PO 50 mg QDAY [facility] Administration Metoclopramide HCl 5 mg 06/12/21 22:46 06/14/21 09:42 Metoclopramide 10 Mg/2 Ml Inj IV 5 mg Q6H PRN Administration Nausea And Vomiting Miscellaneous Medication 1 tab 06/13/21 10:00 Dolutegravir/Rilpivirine [Juluca 50-25 Mg Tablet] PO DAILY [facility] Miscellaneous Medication 1 tab 06/13/21 10:00 Ferric Citrate (Nf) PO QDAY [facility] Nifedipine 30 mg 06/15/21 06:00 Nifedipine Xl 30 Mg Tab PO QDAY@0600 [facility] Ondansetron HCl 4 mg 06/12/21 22:46 06/14/21 07:49 Ondansetron 4 Mg/2 Ml Inj IV 4 mg Q3H PRN Administration Nausea And Vomiting Oxycodone/Acetaminophen 1 tab 06/12/21 22:46 Oxycodone /Acetaminophen 5-325mg Tab PO Q6H PRN Pain, Moderate (4-6) Sodium Chloride 10 ml 06/13/21 10:00 06/14/21 09:47 Sodium Chloride 0.9% 10 Ml Flush Syringe IV 10 ml BID SHIRA Administration Sodium Chloride 10 ml 06/12/21 22:46 Sodium Chloride 0.9% 10 Ml Flush Syringe IV PRN PRN LINE FLUSH
--- NOTE | 2021-06-14 11:19 | Progress Note ---
Assessment and Plan Assessment and plan: 36-year-old male with history of hypertension, hyperlipidemia, coronary artery disease, HIV, gastroparesis comes to the emergency room for right lower quadrant pain for the last couple days. Patient also has associated nausea and vomiting. Denies any fever. Patient missed 2 dialysis sessions. Increasing shortness of breath and orthopnea present. No fever or chills. Patient seen and examined today resting comfortably reports that shortness of breath is improving his normal blood pressure systolic is 180s. He did proceed to have vascular procedure for left upper extremity brachiobasilic fistula with prolonged bleeding which was done successfully and he is to follow with vascular in 1 to 2 weeks for planned revision. He is undergoing dialysis at this time blood pressure has improved and can be discharged if okay with helicopter technician. (1) Hypertensive emergency with chronic accelerated hypertension on ESRD secondary to missed dialysis Current Visit: Yes Status: Acute Plan to address problem: Patient started on his home antihypertensives IV hydralazine 10 mg now and IV hydralazine every 3 hours as needed Noncompliance is an issue Counseled (2) Volume overload secondary to missed dialysis Current Visit: Yes Status: Acute Plan to address problem: Patient being taken for emergent hemodialysis Increased ultrafiltration (3) IDDM (insulin dependent diabetes mellitus) Current Visit: Yes Status: Chronic Plan to address problem: Coverage for now Check hemoglobin A1c Resume home insulin once he starts eating normally (4) Gastroparesis Current Visit: Yes Status: Chronic Plan to address problem: Symptomatic treatment for now (5) ESRD needing dialysis Current Visit: Yes Status: Acute Plan to address problem: Patient being taken for emergent hemodialysis Dr. Peralta consulted (6) HIV (human immunodeficiency virus infection) Current Visit: Yes Status: Chronic Qualifiers: HIV symptom status: asymptomatic, with no history of HIV-related illness Qualified Code(s): Z21 - Asymptomatic human immunodeficiency virus [HIV] infection status Plan to address problem: On antiretrovirals (7) Hyperlipidemia Current Visit: Yes Status: Chronic Qualifiers: Hyperlipidemia type: mixed hyperlipidemia Qualified Code(s): E78.2 - Mixed hyperlipidemia Plan to address problem: On statins (8) malfunctioning left upper extremity brachial basilic fistula with prolonged bleeding status post Left upper extremity fistulogram with venoplasty of the venous outflow above the level of the previously placed stents. Acute dyspnea with respiratory failure Morbidly obese 15 minutes counseling on weight loss and lifestyle change with preventive care plan patient verbalized understanding anemia Current Visit: Yes Status: Chronic Qualifiers: Anemia type: due to chronic kidney disease Plan to address problem: Secondary to end-stage renal disease Epogen as scheduled Disposition: 01 HOME / SELF CARE / HOMELESS Final Discharge Diagnosis (Prints w/discharge instructions): Acute hypoxic respiratory failure secondary to missed dialysis and volume overload due to malfunctioning left upper extremity brachial basilic fistula with prolonged bleeding status post Left upper extremity fistulogram with venoplasty of the venous outflow above the level of the previously placed stents. 06/14: Patient is clinically stable this morning have had extensive discussion with the nursing staff will hold her blood his blood pressure medication prior to HD as he is his normal routine. I will also recommend decreasing his nifedipine to 30 mg at discharge. He will follow up with primary care physician after dialysis and also with the helicopter technician History Interval history: Patient seen and examined this morning resting comfortably he had an iatrogenic drop in blood pressure during dialysis and as a result dialysis was halted. Hospitalist Physical - Physical exam Narrative exam: VITAL SIGNS: Reviewed. GENERAL: The patient appears normally developed, morbidly obese vital signs as documented. HEAD: No signs of head trauma. EYES: Pupils are equal. Extraocular motions intact. EARS: Hearing grossly intact. MOUTH: Oropharynx is normal. NECK: No adenopathy, no JVD. CHEST: Chest with clear breath sounds bilaterally. No wheezes, rales, or rhonchi. CARDIAC: Regular rate and rhythm. S1 and S2, without murmurs, gallops, or rubs. VASCULAR: Left upper extremity fistula no Edema. Peripheral pulses normal and equal in all extremities. ABDOMEN: Soft, non tender and non distended. No rebound or guarding, and no masses palpated. Bowel Sounds normal. MUSCULOSKELETAL: Good range of motion of all major joints. Extremities without clubbing, cyanosis or edema. NEUROLOGIC EXAM: Alert and oriented x 3 No focal sensory or strength deficits. Speech normal. Follows commands. PSYCHIATRIC: Mood normal. SKIN: detail exam as documented in skin assessment - Constitutional Vitals: Temp Pulse Resp BP Pulse Ox 98.6 F 92 H 18 135/80 91 06/14/21 07:25 06/14/21 07:25 06/14/21 07:25 06/14/21 07:25 06/14/21 07:25 General appearance: Present: no acute distress, well-nourished Results - Labs CBC & Chem 7: 06/13/21 05:45 06/13/21 04:49 Labs: Laboratory Last Values WBC 7.8 K/mm3 (4.5-11.0) 06/13/21 05:45 RBC 3.43 M/mm3 (3.65-5.03) L 06/13/21 05:45 Hgb 10.3 gm/dl (11.8-15.2) L 06/13/21 05:45 Hct 31.3 % (35.5-45.6) L 06/13/21 05:45 MCV 91 fl (84-94) 06/13/21 05:45 MCH 30 pg (28-32) 06/13/21 05:45 MCHC 33 % (32-34) 06/13/21 05:45 RDW 14.3 % (13.2-15.2) 06/13/21 05:45 Plt Count 247 K/mm3 (140-440) 06/13/21 05:45 Lymph % (Auto) 8.1 % (13.4-35.0) L 06/13/21 05:45 [place] % (Auto) 6.1 % (0.0-7.3) 06/13/21 05:45 Eos % (Auto) 1.5 % (0.0-4.3) 06/13/21 05:45 Baso % (Auto) 0.6 % (0.0-1.8) 06/13/21 05:45 Lymph # (Auto) 0.6 K/mm3 (1.2-5.4) L 06/13/21 05:45 [place] # (Auto) 0.5 K/mm3 (0.0-0.8) 06/13/21 05:45 Eos # (Auto) 0.1 K/mm3 (0.0-0.4) 06/13/21 05:45 Baso # (Auto) 0.0 K/mm3 (0.0-0.1) 06/13/21 05:45 Seg Neutrophils % 83.7 % (40.0-70.0) H 06/13/21 05:45 Seg Neutrophils # 6.5 K/mm3 (1.8-7.7) 06/13/21 05:45 Sodium 136 mmol/L (137-145) L 06/13/21 04:49 Potassium 3.6 mmol/L (3.6-5.0) 06/13/21 04:49 Chloride 97.4 mmol/L (98-107) L 06/13/21 04:49 Carbon Dioxide 22 mmol/L (22-30) 06/13/21 04:49 Anion Gap 20 mmol/L 06/13/21 04:49 BUN 50 mg/dL (9-20) H 06/13/21 04:49 Creatinine 7.2 mg/dL (0.8-1.3) H 06/13/21 04:49 Estimated GFR 11 ml/min 06/13/21 04:49 BUN/Creatinine Ratio 7 % 06/13/21 04:49 Glucose 120 mg/dL (75-100) H 06/13/21 04:49 POC Glucose 171 mg/dL (70-105) H 06/14/21 11:09 Calcium 8.3 mg/dL (8.4-10.2) L 06/13/21 04:49 Total Bilirubin 0.80 mg/dL (0.1-1.2) 06/13/21 04:49 Direct Bilirubin 0.2 mg/dL (0-0.2) 06/12/21 15:33 Indirect Bilirubin 0.6 mg/dL 06/12/21 15:33 AST 33 units/L (5-40) 06/13/21 04:49 ALT 23 units/L (7-56) 06/13/21 04:49 Alkaline Phosphatase 92 units/L (35-129) 06/13/21 04:49 Total Protein 7.2 g/dL (6.3-8.2) 06/13/21 04:49 Albumin 3.5 g/dL (3.9-5) L 06/13/21 04:49 Albumin/Globulin Ratio 0.9 % 06/13/21 04:49 Hepatitis A IgM Ab Non-reactive (NonReactive) 06/12/21 18:34 Hep Bs Antigen Nonreactive (Negative) 06/12/21 18:34 Hep B Core IgM Ab Non-reactive (NonReactive) 06/12/21 18:34 Hepatitis C Antibody Non-reactive (NonReactive) 06/12/21 18:34 Aguirre/IV: Voiding Method Toilet Active Medications - Current Medications Current Medications: Generic Name Dose Route Start Last Admin Trade Name Freq PRN Reason Stop Dose Admin Acetaminophen 650 mg 06/12/21 22:43 06/14/21 01:46 Acetaminophen 325 Mg Tab PO 650 mg Q4H PRN Administration Pain MILD(1-3)/Fever >100.5/CHOUDHARY Aspirin 81 mg 06/13/21 10:00 06/14/21 09:41 Aspirin Ec 81 Mg Tab PO 81 mg QDAY SHIRA Administration Atorvastatin Calcium 40 mg 06/13/21 22:00 06/13/21 21:25 Atorvastatin 40 Mg Tab PO 40 mg QHS SHIRA Administration Baclofen 10 mg 06/12/21 22:43 Baclofen 10 Mg Tab PO QHS PRN Muscle Spasm Clonidine HCl 0.1 mg 06/12/21 21:49 06/12/21 22:26 Clonidine 0.1 Mg Tab PO 0.1 mg TORY PRN Administration Hypertension Clopidogrel Bisulfate 75 mg 06/13/21 10:00 06/14/21 09:41 Clopidogrel 75 Mg Tab PO 75 mg QDAY SHIRA Administration Darunavir 800 mg 06/13/21 10:00 Darunavir 800 Mg Tab PO QDAY SHIRA Famotidine 10 mg 06/13/21 10:00 06/14/21 09:41 Famotidine 10 Mg Tab PO 10 mg BID SHIRA Administration Heparin Sodium (Porcine) 5,000 unit 06/12/21 23:00 06/14/21 09:41 Heparin 5,000 Unit/1 Ml Vial SUB-Q 5,000 unit Q12HR SHIRA Administration Hydralazine HCl 100 mg 06/13/21 08:00 06/13/21 21:26 Hydralazine 100 Mg Tab PO 100 mg TID SHIRA Administration Hydromorphone HCl 0.5 mg 06/12/21 22:46 06/14/21 09:39 Hydromorphone 1 Mg/1 Ml Inj IV 0.5 mg Q3H PRN Administration Pain , Severe (7-10) Sodium Chloride 100 mls @ 999 mls/hr 06/13/21 13:32 Nacl 0.9% IV TORY PRN Hypotension Insulin Human Lispro 30 unit 06/13/21 08:00 06/14/21 07:29 Insulin Lispro 100 Unit/Ml SUB-Q Not Given BIDDIAB SHIRA Labetalol HCl 100 mg 06/12/21 23:00 06/13/21 21:25 Labetalol 100 Mg Tab PO 100 mg BID SHIRA Administration Labetalol HCl 200 mg 06/13/21 00:00 06/13/21 21:26 Labetalol 200 Mg Tab PO 200 mg BID SHIRA Administration Losartan Potassium 50 mg 06/13/21 10:00 06/13/21 09:21 Losartan 50 Mg Tab PO 50 mg QDAY SHIRA Administration Metoclopramide HCl 5 mg 06/12/21 22:46 06/14/21 09:42 Metoclopramide 10 Mg/2 Ml Inj IV 5 mg Q6H PRN Administration Nausea And Vomiting Miscellaneous Medication 1 tab 06/13/21 10:00 Dolutegravir/Rilpivirine [Juluca 50-25 Mg Tablet] PO DAILY [facility] Miscellaneous Medication 1 tab 06/13/21 10:00 Ferric Citrate (Nf) PO QDAY [facility] Nifedipine 30 mg 06/15/21 06:00 Nifedipine Xl 30 Mg Tab PO QDAY@0600 [facility] Ondansetron HCl 4 mg 06/12/21 22:46 06/14/21 07:49 Ondansetron 4 Mg/2 Ml Inj IV 4 mg Q3H PRN Administration Nausea And Vomiting Oxycodone/Acetaminophen 1 tab 06/12/21 22:46 Oxycodone /Acetaminophen 5-325mg Tab PO Q6H PRN Pain, Moderate (4-6) Sodium Chloride 10 ml 06/13/21 10:00 06/14/21 09:47 Sodium Chloride 0.9% 10 Ml Flush Syringe IV 10 ml BID SHIRA Administration Sodium Chloride 10 ml 06/12/21 22:46 Sodium Chloride 0.9% 10 Ml Flush Syringe IV PRN PRN LINE FLUSH
[2021-06-14] MEDS: oxyCODONE /ACETAMINOPHEN 5-325MG TAB PO PRN (18:01)
[2021-06-14] MEDS: LOSARTAN 50 MG TAB PO SCH (18:12)
[2021-06-14 18:20] VITALS: BP 153/90
[2021-06-15] MEDS ORDERED: NIFEdipine XL 30 MG TAB PO SCH (06:00)
[2021-06-19] MEDS ORDERED: cloNIDine TTS 0.2 MG/24 HR PATCH TD SCH (10:00)
== END 2021-06-14 18:46 | disposition home or self-care (01) | DRG 252 ==
LOC: ED 13:58 → 4A 17:30 → OBSVTOIN 06-13 13:46
PROVIDERS: ADMIT Internal Medicine; ATTEND Internal Medicine
PROC: 5A1D70Z Performance of Urinary Filtration, Intermittent, Less than 6 Hours Per Day (ICD-10-PCS; 2021-06-12)
PROC: 057A3ZZ Dilation of Left Brachial Vein, Percutaneous Approach (ICD-10-PCS; principal; 2021-06-13)
PROC: 057C3ZZ Dilation of Left Basilic Vein, Percutaneous Approach (ICD-10-PCS; 2021-06-13)
PROC: B51W1ZZ Fluoroscopy of Dialysis Shunt/Fistula using Low Osmolar Contrast (ICD-10-PCS; 2021-06-13)
PROC: 5A1D70Z Performance of Urinary Filtration, Intermittent, Less than 6 Hours Per Day (ICD-10-PCS; 2021-06-13)
PROC: 5A1D70Z Performance of Urinary Filtration, Intermittent, Less than 6 Hours Per Day (ICD-10-PCS; 2021-06-14)
DX: T82.520A Displacement of surgically created arteriovenous fistula, initial encounter (principal); N18.6 End stage renal disease; J96.01 Acute respiratory failure with hypoxia; E87.2 Acidosis; J81.0 Acute pulmonary edema; I12.0 Hypertensive chronic kidney disease with stage 5 chronic kidney disease or end stage renal disease; E11.22 Type 2 diabetes mellitus with diabetic chronic kidney disease; Z99.2 Dependence on renal dialysis; T82.838A Hemorrhage due to vascular prosthetic devices, implants and grafts, initial encounter; G43.909 Migraine, unspecified, not intractable, without status migrainosus; E66.01 Morbid (severe) obesity due to excess calories; I25.10 Atherosclerotic heart disease of native coronary artery without angina pectoris; I16.0 Hypertensive urgency; Z68.39 Body mass index [BMI] 39.0-39.9, adult; E87.70 Fluid overload, unspecified; E11.43 Type 2 diabetes mellitus with diabetic autonomic (poly)neuropathy; K31.84 Gastroparesis; Z21 Asymptomatic human immunodeficiency virus [HIV] infection status; E78.2 Mixed hyperlipidemia; D63.1 Anemia in chronic kidney disease; Z83.3 Family history of diabetes mellitus; Z82.49 Family history of ischemic heart disease and other diseases of the circulatory system; Z79.899 Other long term (current) drug therapy; Y83.2 Surgical operation with anastomosis, bypass or graft as the cause of abnormal reaction of the patient, or of later complication, without mention of misadventure at the time of the procedure; Y92.89 Other specified places as the place of occurrence of the external cause; Z88.5 Allergy status to narcotic agent; Z88.0 Allergy status to penicillin; Z90.49 Acquired absence of other specified parts of digestive tract; Z79.82 Long term (current) use of aspirin
CPT/HCPCS: 36415; 36902; 71045; 74177; 80048; 80053; 80074; 80076; 82962; 85025; 93005; G0378; J1815; J3490; C1725; C1751; C1769; C1894; J0360; J1170; J1644; J2250; J2270; J2405; J2765; J3010; J7050; Q9967

== ENCOUNTER 2021-06-16 15:43 | Emergency (ER) | payer OTHER ==
[2021-06-16] MEDS ORDERED: MORPHINE 4 MG/1 ML INJ IV ONE (16:41)
[2021-06-16] MEDS ORDERED: ONDANSETRON 4 MG/2 ML INJ IV ONE (16:41)
--- NOTE | 2021-06-16 16:47 | Emergency Department Report ---
HPI - General Chief Complaint: Syncope Time Seen by Provider: 06/16/21 16:16 - HPI HPI: 36-year-old male presents to the emergency department with a complaint of having a syncopal episode just prior to presentation while brushing his teeth in the bathroom. Patient was admitted here from 06/12 - 06/14 after he had a previous syncopal episode, missed dialysis, had shortness of breath, and it appears that he was having some issues with his left upper extremity fistula. During that last admission patient had a left upper extremity fistulogram and venoplasty done by Dr. Driscoll. Patient says that he did receive dialysis yesterday but all of a sudden "the needle came all the way out" and the patient began having a lot of bleeding so they stopped dialysis about 1 hour early. The patient said that he had some generalized weakness but just went home and rested. Currently the patient complains of generalized pain. He has a past medical history of end-stage renal disease on hemodialysis on Thursday//Thursday, hypertension, HIV. 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 ED Past Medical Hx - Past Medical History Hx Hypertension: Yes Hx Congestive Heart Failure: No Hx Diabetes: Yes Hx Renal Disease: Yes (T, Th, Sat) Hx Headaches / Migraines: Yes (Migraines) Hx Asthma: No Hx COPD: No Hx HIV: Yes Additional medical history: HIV (on medication, unknown last CD4 count). gastroparesis - Surgical History Hx Cholecystectomy: Yes Additional Surgical History: Dialysis port in right chest. fistula in left arm - Social History Smoking Status: Never Smoker - Medications Home Medications: Home Medications Medication Instructions Recorded Confirmed Last Taken Type Dolutegravir/Rilpivirine [Juluca 1 tab PO DAILY 11/19/20 06/13/21 06/12/21 History 50-25 mg Tablet] Clopidogrel [Plavix] 75 mg PO QDAY #30 tablet 01/09/21 06/13/21 06/12/21 Rx Darunavir [Prezista] 800 mg PO QDAY tablet 01/09/21 06/13/21 06/12/21 Rx hydrALAZINE [Apresoline TAB] 100 mg PO TID #90 tab 01/09/21 06/13/21 06/12/21 Rx Aspirin EC [Halfprin EC] 81 mg PO QDAY tablet 06/13/21 Unknown Rx AtorvaSTATin [Lipitor] 40 mg PO QHS tablet 06/13/21 Unknown Rx Baclofen [Lioresal] 10 mg PO QHS PRN tablet 06/13/21 Unknown Rx Darunavir [Prezista] 800 mg PO QDAY tablet 06/13/21 Unknown Rx Famotidine [Pepcid] 10 mg PO BID tablet 06/13/21 Unknown Rx Ferric Citrate (Nf) 1 tab PO QDAY 06/13/21 Unknown Rx Lispro Insulin [HumaLOG] 30 unit SUB-Q BIDDIAB units 06/13/21 Unknown Rx Losartan [Cozaar] 50 mg PO QDAY tablet 06/13/21 Unknown Rx cloNIDine [Catapres] 0.1 mg PO TORY PRN tablet 06/13/21 Unknown Rx labetaloL [Labetalol 100mg TAB] 300 mg PO BID tablet 06/13/21 Unknown Rx NIFEdipine XL [Procardia Xl] 30 mg PO QDAY@0600 #30 tablet 06/14/21 Unknown Rx HYDROcodone/APAP 5-325 [[place] 1 each PO Q6HR PRN #10 tablet 06/16/21 Unknown Rx 5/325] ED Review of Systems ROS: Stated complaint: BODYACHES AND PAIN WITH N/V Other details as noted in HPI Comment: All other systems reviewed and negative Constitutional: weakness. denies: chills, fever Eyes: denies: eye pain, vision change ENT: denies: ear pain, throat pain Respiratory: denies: cough, shortness of breath Cardiovascular: syncope. denies: chest pain Gastrointestinal: denies: abdominal pain, vomiting Genitourinary: denies: dysuria, discharge Musculoskeletal: myalgia. denies: joint swelling Skin: denies: rash, lesions Neurological: denies: numbness, paresthesias Physical Exam - Physical Exam Vital Signs: Vital Signs 06/16/21 16:01 Temperature 98.8 F Pulse Rate 103 H Respiratory 16 Rate Blood Pressure 217/121 [Left] O2 Sat by Pulse 98 Oximetry Physical Exam: GENERAL: The patient is well-developed well-nourished. HENT: Normocephalic. Atraumatic. Patient has moist mucous membranes. EYES: Extraocular motions are intact. No nystagmus. NECK: Supple. Trachea is midline. CHEST/LUNGS: Clear to auscultation. There is no respiratory distress noted. HEART/CARDIOVASCULAR: Regular. There is no tachycardia. There is no murmur. ABDOMEN: Abdomen is soft, nontender. Patient has normal bowel sounds. There is no abdominal distention. SKIN: Skin is warm and dry. NEURO: The patient is awake, alert, and oriented. The patient is cooperative. The patient has no focal neurologic deficits. Normal speech. Cranial nerves II through XII grossly intact. No facial asymmetry. No pronator drift or dysm etria. MUSCULOSKELETAL: There is no tenderness or deformity. There is no limitation range of motion. Radial pulse +2/4 and capillary refill less than 2 seconds. There is a patent left upper extremity fistula. ED Course Vital Signs 06/16/21 16:01 Temperature 98.8 F Pulse Rate 103 H Respiratory 16 Rate Blood Pressure 217/121 [Left] O2 Sat by Pulse 98 Oximetry ED Medical Decision Making - Lab Data Result diagrams: 06/16/21 17:28 06/16/21 17:28 Lab Results 06/16/21 06/16/21 06/16/21 Range/Units 17:28 17:28 17:28 WBC 6.8 (4.5-11.0) K/mm3 RBC 3.58 L (3.65-5.03) M/mm3 Hgb 10.8 L (11.8-15.2) gm/dl Hct 33.2 L (35.5-45.6) % MCV 93 (84-94) fl MCH 30 (28-32) pg MCHC 32 (32-34) % RDW 14.6 (13.2-15.2) % Plt Count 241 (140-440) K/mm3 Lymph % (Auto) 11.8 L (13.4-35.0) % Alfalfa % (Auto) 8.0 H (0.0-7.3) % Eos % (Auto) 3.1 (0.0-4.3) % Baso % (Auto) 0.6 (0.0-1.8) % Lymph # (Auto) 0.8 L (1.2-5.4) K/mm3 Alfalfa # (Auto) 0.5 (0.0-0.8) K/mm3 Eos # (Auto) 0.2 (0.0-0.4) K/mm3 Baso # (Auto) 0.0 (0.0-0.1) K/mm3 Seg Neutrophils % 76.5 H (40.0-70.0) % Seg Neutrophils # 5.2 (1.8-7.7) K/mm3 Sodium 134 L (137-145) mmol/L Potassium 4.0 (3.6-5.0) mmol/L Chloride 95.2 L (98-107) mmol/L Carbon Dioxide 24 (22-30) mmol/L Anion Gap 19 mmol/L BUN 31 H (9-20) mg/dL Creatinine 7.2 H (0.8-1.3) mg/dL Estimated GFR 11 ml/min BUN/Creatinine Ratio 4 % Glucose 144 H (75-100) mg/dL Calcium 8.8 (8.4-10.2) mg/dL Magnesium 2.00 (1.7-2.3) mg/dL Total Bilirubin 0.50 (0.1-1.2) mg/dL AST 17 (5-40) units/L ALT 12 (7-56) units/L Alkaline Phosphatase 83 (35-129) units/L Total Protein 8.0 (6.3-8.2) g/dL Albumin 3.8 L (3.9-5) g/dL Albumin/Globulin Ratio 0.9 % TSH 1.020 (0.270-4.200) mlU/mL - EKG Data -: EKG Interpreted by Ct EKG shows normal: sinus rhythm, axis, intervals, QRS complexes, ST-T waves (Flattening of T waves and/or inversions of the T waves to the lateral leads) Rate: normal - EKG Data When compared to previous EKG there are: no significant change Interpretation: unchanged when compared t (06/12/21) - Radiology Data Radiology results: report reviewed CT HEAD WITHOUT CONTRAST INDICATION / CLINICAL INFORMATION: Syncope, weakness. TECHNIQUE: All CT scans at this location are performed using CT dose reduction for ALARA by means of automated exposure control. COMPARISON: CT head without contrast from 01/04/2021 FINDINGS: BRAIN PARENCHYMA: No acute intracranial hemorrhage. No evidence of recent infarct. No mass effect or midline shift. VENTRICULAR SYSTEM/EXTRA-AXIAL SPACES: Ventricles are normal for age. No extra- axial fluid collection. ORBITS: Normal as visualized. SKELETAL SYSTEM/SOFT TISSUES: Normal bones and soft tissues. PARANASAL SINUSES/MASTOID AIR CELLS: No significant abnormality. ADDITIONAL FINDINGS: None. IMPRESSION: 1. No acute intracranial abnormality. - Medical Decision Making This patient presents to the emergency department with a complaint of having a syncopal episode just prior to presentation while brushing his teeth in the bathroom. He says that he had some generalized pain that was very sharp and then he got dizzy and passed out. At the time of my examination he is awake, alert, oriented, AAO x3. He does not have any focal, motor or sensory deficits and his cranial nerves are intact. CT scan of the head without contrast does not show any hemorrhage, large vessel occlusion, or any other acute process. Chest x-ray does not show any pneumonia, pleural effusions, widened mediastinum, pneumothorax, or any other acute process. Patient's labs have been unremarkable including CBC, metabolic panel, normal thyroid function, except for the renal insufficiency consistent with his end- stage renal disease on hemodialysis. The patient was given a dose of pain medication. He was reevaluated multiple times over multiple hours and there has been no further syncopal episodes and the patient has remained stable throughout his ED course. He did present with significant hypertension but it started to come down a little without any antihypertensive medication given and he has BP meds he needs to take at home. Patient appears safe for discharge home at this time. He has been instructed to follow-up with primary care and continue with his normal dialysis regimen. However, he will return to the closest emergency department with any further episodes of syncope, worsening of his symptoms, or with any acute distress. Critical Care Time: No Critical care attestation.: If time is entered above; I have spent that time in minutes in the direct care of this critically ill patient, excluding procedure time. ED Disposition Clinical Impression: ESRD on hemodialysis, Generalized body aches Syncope Qualifiers: Syncope type: unspecified Qualified Code(s): R55 - Syncope and collapse Hypertension Qualifiers: Hypertension type: primary hypertension Qualified Code(s): I10 - Essential (primary) hypertension Disposition: 01 HOME / SELF CARE / HOMELESS Is pt being admited?: No Condition: Stable Instructions: Syncope (ED), Hypertension (ED) Additional Instructions: Please follow-up with a primary care physician in the next few days. I have given you a referral for a local primary care physician, Dr. Sexton, and a primary care clinic, [facility]. I have given you a referral for a local security screener, Dr. Wagner, to follow- up regarding the episodes of passing out. Take all of your medications as previously prescribed. Try to stay away from foods that are high in salt and caffeinated products. Keep a blood pressure log. You have been prescribed a medication that is sedating and therefore should not be taken prior to driving, working, and responsible for children and in no way should be mixed with alcohol of any quantity. Return to the emergency department with any worsening of your symptoms, new or concerning symptoms not addressed during this current emergency department visit, or with any acute distress. Prescriptions: HYDROcodone/APAP 5-325 [[place] 5/325] 1 each PO Q6HR PRN #10 tablet PRN Reason: Pain Referrals: PRIMARY CAREMD [Primary Care Provider] - 3-5 Days ESSENCE SEXTON MD [Staff Physician] - 3-5 Days ANAI WAGNER MD [Staff Physician] - 3-5 Days [facility] [Provider Group] - 3-5 Days
--- NOTE | 2021-06-16 17:23 | XRay Report ---
CHEST 2 VIEWS INDICATION: Syncope. COMPARISON: 06/12/2021 FINDINGS: SUPPORT DEVICES: None. HEART: Within normal limits. LUNGS/PLEURA: No acute air space or interstitial disease. No pneumothorax. ADDITIONAL FINDINGS: None. IMPRESSION: 1. No acute findings. Signer Name: Joshua High MD Signed: 06/16/2021 5:19 PM Workstation Name: [id number]
[2021-06-16 17:40] LABS: Basophils % (Auto) 0.6 % (0.0-1.8); Eosinophils # (Auto) 0.2 K/mm3 (0.0-0.4); Eosinophils % (Auto) 3.1 % (0.0-4.3); Hematocrit 33.2 % (35.5-45.6); Hemoglobin 10.8 gm/dl (11.8-15.2); Lymphocytes # (Auto) 0.8 K/mm3 (1.2-5.4); Lymphocytes % (Auto) 11.8 % (13.4-35.0); Mean Corpuscular HGB Conc 32 % (32-34); Mean Corpuscular Volume 93 fl (84-94); Monocytes # (Auto) 0.5 K/mm3 (0.0-0.8); Platelet Count 241 K/mm3 (140-440); Red Blood Count 3.58 M/mm3 (3.65-5.03); Red Cell Distribution Width 14.6 % (13.2-15.2)
[2021-06-16 18:03] LABS: Albumin 3.8 g/dL (3.9-5); Calcium 8.8 mg/dL (8.4-10.2)
[2021-06-16 19:47] VITALS: BP 191/117
--- NOTE | 2021-06-16 21:52 | Cat Scan Report ---
CT HEAD WITHOUT CONTRAST INDICATION / CLINICAL INFORMATION: Syncope, weakness. TECHNIQUE: All CT scans at this location are performed using CT dose reduction for ALARA by means of automated exposure control. COMPARISON: CT head without contrast from 01/04/2021 FINDINGS: BRAIN PARENCHYMA: No acute intracranial hemorrhage. No evidence of recent infarct. No mass effect or midline shift. VENTRICULAR SYSTEM/EXTRA-AXIAL SPACES: Ventricles are normal for age. No extra-axial fluid collection . ORBITS: Normal as visualized. SKELETAL SYSTEM/SOFT TISSUES: Normal bones and soft tissues. PARANASAL SINUSES/MASTOID AIR CELLS: No significant abnormality. ADDITIONAL FINDINGS: None. IMPRESSION: 1. No acute intracranial abnormality. Signer Name: Ti Leo MD Signed: 06/16/2021 9:48 PM Workstation Name: [id number]
--- NOTE | 2021-06-17 08:58 | Electrocardiograph Report ---
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
== END 2021-06-16 19:38 | disposition home or self-care (01) ==
LOC: ED 15:43
DX: E11.22 Type 2 diabetes mellitus with diabetic chronic kidney disease (principal); I12.0 Hypertensive chronic kidney disease with stage 5 chronic kidney disease or end stage renal disease; N18.6 End stage renal disease; R55 Syncope and collapse; M79.10 Myalgia, unspecified site
CPT/HCPCS: 36415; 70450; 71046; 80053; 83735; 84443; 85025; 93005; 96374; 96375; 99284; J2270; J2405

== ENCOUNTER 2021-06-24 11:51 | Emergency (ER) | payer OTHER ==
[2021-06-24] MEDS ORDERED: PANTOPRAZOLE 40 MG INJ IV ONE (12:37)
[2021-06-24] MEDS ORDERED: METOCLOPRAMIDE 10 MG/2 ML INJ IV ONE (12:37)
[2021-06-24] MEDS ORDERED: diphenhydrAMINE 50 MG/ML VIAL IV ONE (12:37)
[2021-06-24] MEDS ORDERED: ONDANSETRON 4 MG/2 ML INJ IV ONE (12:37)
[2021-06-24 13:12] LABS: Basophils % (Auto) 0.6 % (0.0-1.8); Eosinophils # (Auto) 0.1 K/mm3 (0.0-0.4); Eosinophils % (Auto) 2.3 % (0.0-4.3); Hematocrit 37.4 % (35.5-45.6); Hemoglobin 11.8 gm/dl (11.8-15.2); Lymphocytes # (Auto) 0.7 K/mm3 (1.2-5.4); Lymphocytes % (Auto) 11.7 % (13.4-35.0); Mean Corpuscular HGB Conc 32 % (32-34); Mean Corpuscular Volume 95 fl (84-94); Monocytes # (Auto) 0.5 K/mm3 (0.0-0.8); Monocytes % (Auto) 8.6 % (0.0-7.3); Platelet Count 264 K/mm3 (140-440); Red Blood Count 3.94 M/mm3 (3.65-5.03); Red Cell Distribution Width 16.5 % (13.2-15.2)
[2021-06-24 13:19] LABS: INR 0.91 (0.87-1.13)
[2021-06-24 13:20] LABS: Partial Thromboplastin Time 34.2 Sec. (24.2-36.6)
--- NOTE | 2021-06-24 13:29 | Emergency Department Report ---
ED General Adult HPI - General Chief complaint: Nausea/Vomiting/Diarrhea Stated complaint: BODY PAIN/VOMITING Time Seen by Provider: 06/24/21 12:25 Source: patient Mode of arrival: Ambulatory Limitations: No Limitations - History of Present Illness Initial comments: Patient presents to the emergency department the chief complaint of nausea and vomiting that has been present intermittently for the last 2 to 3 weeks as well as body pain x1 week. Patient states he was admitted 2 weeks ago and had to have his AV fistula ballooned. Patient states he has a history of gastroparesis and is on Plavix as well. Patient denies abdominal pain or chest pain. Patient also complains of lower back pain. 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 - Related Data Home Medications Medication Instructions Recorded Confirmed Last Taken Dolutegravir/Rilpivirine [Juluca 1 tab PO DAILY 11/19/20 06/13/21 06/12/21 50-25 mg Tablet] Previous Rx's Medication Instructions Recorded Last Taken Type Clopidogrel [Plavix] 75 mg PO QDAY #30 tablet 01/09/21 06/12/21 Rx Darunavir [Prezista] 800 mg PO QDAY tablet 01/09/21 06/12/21 Rx hydrALAZINE [Apresoline TAB] 100 mg PO TID #90 tab 01/09/21 06/12/21 Rx Aspirin EC [Halfprin EC] 81 mg PO QDAY tablet 06/13/21 Unknown Rx AtorvaSTATin [Lipitor] 40 mg PO QHS tablet 06/13/21 Unknown Rx Baclofen [Lioresal] 10 mg PO QHS PRN tablet 06/13/21 Unknown Rx Darunavir [Prezista] 800 mg PO QDAY tablet 06/13/21 Unknown Rx Famotidine [Pepcid] 10 mg PO BID tablet 06/13/21 Unknown Rx Ferric Citrate (Nf) 1 tab PO QDAY 06/13/21 Unknown Rx Lispro Insulin [HumaLOG] 30 unit SUB-Q BIDDIAB units 06/13/21 Unknown Rx Losartan [Cozaar] 50 mg PO QDAY tablet 06/13/21 Unknown Rx cloNIDine [Catapres] 0.1 mg PO TORY PRN tablet 06/13/21 Unknown Rx labetaloL [Labetalol 100mg TAB] 300 mg PO BID tablet 06/13/21 Unknown Rx NIFEdipine XL [Procardia Xl] 30 mg PO QDAY@0600 #30 tablet 06/14/21 Unknown Rx HYDROcodone/APAP 5-325 [[place] 1 each PO Q6HR PRN #10 tablet 06/16/21 Unknown Rx 5/325] Esomeprazole Magnesium [NexIUM] 40 mg PO QDAY #30 capsule. 06/24/21 Unknown Rx HYDROcodone/APAP 5-325 [[place] 1 each PO Q6HR PRN #12 tablet 06/24/21 Unknown Rx 5/325] Metoclopramide [Reglan] 10 mg PO Q6HR PRN #20 tab 06/24/21 Unknown Rx Ondansetron [Zofran Odt] 4 mg PO Q4HR PRN #20 tab.rapdis 06/24/21 Unknown Rx Allergies Allergy/AdvReac Type Severity Reaction Status Date / Time Penicillins Allergy Hives Verified 06/24/21 12:17 tramadol AdvReac Vomiting Verified 06/24/21 12:17 ED Review of Systems ROS: Stated complaint: BODY PAIN/VOMITING Other details as noted in HPI Comment: All other systems reviewed and negative Constitutional: denies: chills, fever Eyes: denies: eye pain, eye discharge, vision change ENT: denies: ear pain, throat pain Respiratory: denies: cough, shortness of breath, wheezing Cardiovascular: denies: chest pain, palpitations Endocrine: no symptoms reported Gastrointestinal: nausea, vomiting. denies: abdominal pain, diarrhea Genitourinary: denies: urgency, dysuria Musculoskeletal: denies: back pain, joint swelling, arthralgia Skin: denies: rash, lesions Neurological: denies: headache, weakness, paresthesias Psychiatric: denies: anxiety, depression Hematological/Lymphatic: denies: easy bleeding, easy bruising ED Past Medical Hx - Past Medical History Hx Hypertension: Yes Hx Congestive Heart Failure: No Hx Diabetes: Yes Hx Renal Disease: Yes (T, Th, Sat) Hx Headaches / Migraines: Yes (Migraines) Hx Asthma: No Hx COPD: No Hx HIV: Yes Additional medical history: HIV (on medication, unknown last CD4 count). gastroparesis - Surgical History Hx Cholecystectomy: Yes Additional Surgical History: Dialysis port in right chest. fistula in left arm - Social History Smoking Status: Never Smoker - Medications Home Medications: Home Medications Medication Instructions Recorded Confirmed Last Taken Type Dolutegravir/Rilpivirine [Januca 1 tab PO DAILY 11/19/20 06/13/21 06/12/21 History 50-25 mg Tablet] Clopidogrel [Plavix] 75 mg PO QDAY #30 tablet 01/09/21 06/13/21 06/12/21 Rx Darunavir [Prezista] 800 mg PO QDAY tablet 01/09/21 06/13/21 06/12/21 Rx hydrALAZINE [Apresoline TAB] 100 mg PO TID #90 tab 01/09/21 06/13/21 06/12/21 Rx Aspirin EC [Halfprin EC] 81 mg PO QDAY tablet 06/13/21 Unknown Rx AtorvaSTATin [Lipitor] 40 mg PO QHS tablet 06/13/21 Unknown Rx Baclofen [Lioresal] 10 mg PO QHS PRN tablet 06/13/21 Unknown Rx Darunavir [Prezista] 800 mg PO QDAY tablet 06/13/21 Unknown Rx Famotidine [Pepcid] 10 mg PO BID tablet 06/13/21 Unknown Rx Ferric Citrate (Nf) 1 tab PO QDAY 06/13/21 Unknown Rx Lispro Insulin [HumaLOG] 30 unit SUB-Q BIDDIAB units 06/13/21 Unknown Rx Losartan [Cozaar] 50 mg PO QDAY tablet 06/13/21 Unknown Rx cloNIDine [Catapres] 0.1 mg PO TORY PRN tablet 06/13/21 Unknown Rx labetaloL [Labetalol 100mg TAB] 300 mg PO BID tablet 06/13/21 Unknown Rx NIFEdipine XL [Procardia Xl] 30 mg PO QDAY@0600 #30 tablet 06/14/21 Unknown Rx HYDROcodone/APAP 5-325 [[place] 1 each PO Q6HR PRN #10 tablet 06/16/21 Unknown Rx 5/325] Esomeprazole Magnesium [NexIUM] 40 mg PO QDAY #30 darwin. 06/24/21 Unknown Rx HYDROcodone/APAP 5-325 [[place] 1 each PO Q6HR PRN #12 tablet 06/24/21 Unknown Rx 5/325] Metoclopramide [Reglan] 10 mg PO Q6HR PRN #20 tab 06/24/21 Unknown Rx Ondansetron [Zofran Odt] 4 mg PO Q4HR PRN #20 tab.rapdis 06/24/21 Unknown Rx ED Physical Exam - General Limitations: No Limitations General appearance: alert, in no apparent distress - Head Head exam: Present: atraumatic, normocephalic - Eye Eye exam: Present: normal appearance, PERRL, EOMI - ENT ENT exam: Present: mucous membranes moist - Neck Neck exam: Present: normal inspection - Respiratory Respiratory exam: Present: normal lung sounds bilaterally. Absent: respiratory distress - Cardiovascular Cardiovascular Exam: Present: regular rate, normal rhythm. Absent: systolic murmur, diastolic murmur, rubs, gallop - GI/Abdominal GI/Abdominal exam: Present: soft, normal bowel sounds - Rectal Rectal exam: Present: deferred - Extremities Exam Extremities exam: Present: normal inspection, other (Left AV fistula positive thrill) - Back Exam Back exam: Present: normal inspection - Neurological Exam Neurological exam: Present: alert, oriented X3, CN II-XII intact. Absent: motor sensory deficit - Psychiatric Psychiatric exam: Present: normal affect, normal mood - Skin Skin exam: Present: warm, dry, intact, normal color. Absent: rash ED Course Vital Signs 06/24/21 12:21 Temperature 98.2 F Pulse Rate 101 H Respiratory 20 Rate Blood Pressure 224/137 O2 Sat by Pulse 98 Oximetry ED Medical Decision Making - Lab Data Result diagrams: 06/24/21 12:40 06/24/21 12:40 Lab Results 06/24/21 06/24/21 06/24/21 Range/Units 12:40 12:40 12:40 WBC 6.1 (4.5-11.0) K/mm3 RBC 3.94 (3.65-5.03) M/mm3 Hgb 11.8 (11.8-15.2) gm/dl Hct 37.4 (35.5-45.6) % MCV 95 H (84-94) fl MCH 30 (28-32) pg MCHC 32 (32-34) % RDW 16.5 H (13.2-15.2) % Plt Count 264 (140-440) K/mm3 Lymph % (Auto) 11.7 L (13.4-35.0) % Allen % (Auto) 8.6 H (0.0-7.3) % Eos % (Auto) 2.3 (0.0-4.3) % Baso % (Auto) 0.6 (0.0-1.8) % Lymph # (Auto) 0.7 L (1.2-5.4) K/mm3 Allen # (Auto) 0.5 (0.0-0.8) K/mm3 Eos # (Auto) 0.1 (0.0-0.4) K/mm3 Baso # (Auto) 0.0 (0.0-0.1) K/mm3 Seg Neutrophils % 76.8 H (40.0-70.0) % Seg Neutrophils # 4.7 (1.8-7.7) K/mm3 PT 13.3 (12.2-14.9) Sec. INR 0.91 (0.87-1.13) APTT 34.2 (24.2-36.6) Sec. Sodium 138 (137-145) mmol/L Potassium 4.1 (3.6-5.0) mmol/L Chloride 98.2 (98-107) mmol/L Carbon Dioxide 21 L (22-30) mmol/L Anion Gap 23 mmol/L BUN 59 H (9-20) mg/dL Creatinine 7.4 H (0.8-1.3) mg/dL Estimated GFR 10 ml/min BUN/Creatinine Ratio 8 % Glucose 144 H (75-100) mg/dL Calcium 8.5 (8.4-10.2) mg/dL Total Bilirubin 0.70 (0.1-1.2) mg/dL AST 22 (5-40) units/L ALT 17 (7-56) units/L Alkaline Phosphatase 88 (35-129) units/L Total Protein 7.7 (6.3-8.2) g/dL Albumin 4.2 (3.9-5) g/dL Albumin/Globulin Ratio 1.2 % Lipase 67 H (13-60) units/L Monoscreen (Negative) 06/24/21 Range/Units 15:20 WBC (4.5-11.0) K/mm3 RBC (3.65-5.03) M/mm3 Hgb (11.8-15.2) gm/dl Hct (35.5-45.6) % MCV (84-94) fl MCH (28-32) pg MCHC (32-34) % RDW (13.2-15.2) % Plt Count (140-440) K/mm3 Lymph % (Auto) (13.4-35.0) % Allen % (Auto) (0.0-7.3) % Eos % (Auto) (0.0-4.3) % Baso % (Auto) (0.0-1.8) % Lymph # (Auto) (1.2-5.4) K/mm3 Allen # (Auto) (0.0-0.8) K/mm3 Eos # (Auto) (0.0-0.4) K/mm3 Baso # (Auto) (0.0-0.1) K/mm3 Seg Neutrophils % (40.0-70.0) % Seg Neutrophils # (1.8-7.7) K/mm3 PT (12.2-14.9) Sec. INR (0.87-1.13) APTT (24.2-36.6) Sec. Sodium (137-145) mmol/L Potassium (3.6-5.0) mmol/L Chloride (98-107) mmol/L Carbon Dioxide (22-30) mmol/L Anion Gap mmol/L BUN (9-20) mg/dL Creatinine (0.8-1.3) mg/dL Estimated GFR ml/min BUN/Creatinine Ratio % Glucose (75-100) mg/dL Calcium (8.4-10.2) mg/dL Total Bilirubin (0.1-1.2) mg/dL AST (5-40) units/L ALT (7-56) units/L Alkaline Phosphatase (35-129) units/L Total Protein (6.3-8.2) g/dL Albumin (3.9-5) g/dL Albumin/Globulin Ratio % Lipase (13-60) units/L Monoscreen Negative (Negative) - Radiology Data Radiology results: report reviewed - Medical Decision Making Review of CT from 1117 does not show any acute pathology of the intra-abdominal organs. Does show small bilateral effusions. Since the patient is abdominal pain-free and had a recent CT done within the last 12 days I felt like a repeat CT would not be warranted especially with a normal abdominal exam. Due to the patient's complaint of lumbar spine pain without midline tenderness to palpation a CT was done for evaluation of compression fracture. Discussed with patient that he probably needs an MRI as an outpatient for further evaluation especially since she has no blood markers significant for infection. The last documented heart rate in the chart is 101 bpm. On my reevaluation of the patient at 5 PM his heart rate is 86 bpm Critical care attestation.: If time is entered above; I have spent that time in minutes in the direct care of this critically ill patient, excluding procedure time. ED Disposition Clinical Impression: Gastroparesis, Body aches Disposition: HOME / SELF CARE / HOMELESS Is pt being admited?: No Does the pt Need Aspirin: No Condition: Stable Instructions: Gastroparesis Additional Instructions: Return if worse Please return if you have a fever or if you begin to feel worse Referrals: PRIMARY CAREMD [Primary Care Provider] - 3-5 Days ESSENCE HILL MD [Staff Physician] - 3-5 Days Time of Disposition: 17:20
[2021-06-24 13:36] LABS: Albumin 4.2 g/dL (3.9-5); Calcium 8.5 mg/dL (8.4-10.2)
[2021-06-24] MEDS ORDERED: MORPHINE 4 MG/1 ML INJ IV ONE (13:58)
--- NOTE | 2021-06-24 16:02 | Cat Scan Report ---
CT lumbar spine wo con INDICATION / CLINICAL INFORMATION: 36 years Male; lower back pain. TECHNIQUE: Axial CT images of the lumbar spine were obtained with sagittal and coronal reconstructions. All CT s cans at this location are performed using CT dose reduction for ALARA by means of automated exposure control. COMPARISON: The study is compared to previous CT of 05/08/2019. FINDINGS: POST-SURGICAL CHANGES: There is decompressive laminectomy at L4-5 and L5-S1 which correlate with prev ious CT. ALIGNMENT: There is no significant developing spondylolisthesis or scoliosis of the lumbar spine. VERTEBRAE: There is no CT evidence of acute compression fracture involving lumbar spine. INTERVERTEBRAL DISCS: There are mild diffuse a disc bulges at the decompressed L4-5 and L5-S1 without evidence of significant recurrent spinal stenosis. However, there appears to be mild neural from cathi rowing bilaterally at L4-5. There is no clear CT evidence of significant stenosis involving upper lumbar segments. PARASPINAL SOF T TISSUES: No significant abnormality. ADDITIONAL FINDINGS: None. IMPRESSION: 1. There are continued a postsurgical changes involving the lumbar spine as described without evidenc e of acute fracture. Signer Name: Dell Summers MD Signed: 06/24/2021 3:58 PM Workstation Name: [id number]
[2021-06-24 17:54] VITALS: BP 181/115
== END 2021-06-24 17:55 | disposition home or self-care (01) ==
LOC: ED 11:51
DX: E11.43 Type 2 diabetes mellitus with diabetic autonomic (poly)neuropathy (principal); K31.84 Gastroparesis; I10 Essential (primary) hypertension; G43.909 Migraine, unspecified, not intractable, without status migrainosus; R79.1 Abnormal coagulation profile; Z88.0 Allergy status to penicillin; Z88.6 Allergy status to analgesic agent; Z79.899 Other long term (current) drug therapy
CPT/HCPCS: 36415; 72131; 80053; 83690; 85025; 85610; 85730; 86308; 96374; 96375; 99283; C9113; J1200; J2270; J2405; J2765

== ENCOUNTER 2021-06-27 16:17 | Emergency (ER) | payer OTHER ==
[2021-06-27] MEDS ORDERED: hydrALAZINE 20 MG/1 ML INJ IV ONE (19:28)
[2021-06-27] MEDS ORDERED: ONDANSETRON 4 MG/2 ML INJ IV ONE (19:30)
[2021-06-27] MEDS ORDERED: MORPHINE 4 MG/1 ML INJ IV ONE (19:32)
--- NOTE | 2021-06-27 19:32 | Event Note ---
ED Screening Note Date of service: 06/27/21 Time: 19:31 ED Screening Note: Pt ocm[place]ains of N/V and upper abdominal pain x 1.5 weeks seen here for the same 06/24/21 HIV, ESRD, DM, HTN unable to take BP meds due to vomiting This initial assessment/diagnostic orders/clinical plan/treatment(s) is/are subject to change based on patients health status, clinical progression and re- assessment by fellow clinical providers in the ED. Further treatment and workup at subsequent clinical providers discretion. Patient/guardian urged not to elope from the ED as their condition may be serious if not clinically assessed and managed. Initial orders include: labs meds
[2021-06-27 20:18] LABS: Calcium 8.7 mg/dL (8.4-10.2)
[2021-06-27 20:21] LABS: Basophils % (Auto) 0.7 % (0.0-1.8); Eosinophils # (Auto) 0.2 K/mm3 (0.0-0.4); Eosinophils % (Auto) 2.7 % (0.0-4.3); Hematocrit 36.2 % (35.5-45.6); Hemoglobin 11.8 gm/dl (11.8-15.2); Lymphocytes # (Auto) 0.9 K/mm3 (1.2-5.4); Lymphocytes % (Auto) 14.6 % (13.4-35.0); Mean Corpuscular HGB Conc 33 % (32-34); Mean Corpuscular Volume 95 fl (84-94); Monocytes # (Auto) 0.6 K/mm3 (0.0-0.8); Monocytes % (Auto) 9.4 % (0.0-7.3); Platelet Count 214 K/mm3 (140-440); Red Blood Count 3.81 M/mm3 (3.65-5.03); Red Cell Distribution Width 16.7 % (13.2-15.2)
[2021-06-27 20:45] LABS: Bacteria,Urine 1+ /HPF (Negative); Bilirubin,Urine NEG (Negative); Blood,Urine NEG (Negative); Color,Urine Yellow (Yellow); Urobilinogen,Urine < 2.0 mg/dL (<2.0)
[2021-06-27 20:49] LABS: Protein,Urine >500 mg/dL (Negative)
--- NOTE | 2021-06-27 22:55 | Cat Scan Report ---
CT OF THE ABDOMEN AND PELVIS WITHOUT CONTRAST INDICATION / CLINICAL INFORMATION: Abdominal pain with nausea and vomiting. TECHNIQUE: All CT scans at this location are performed using CT dose reduction for ALARA by means of automated exposure control. COMPARISON: 06/12/21. FINDINGS: ABDOMEN: The gallbladder is surgically absent. The liver, spleen, bile ducts, pancreas, adrenal gland s and kidneys are normal in appearance. There is a moderate amount of stool throughout the colon. I s ee no evidence of bowel obstruction, wall thickening or free air. No acute vascular abnormality is pr esent. There is no evidence of adenopathy. There are minimal bilateral pleural effusions, decreased in size. Interstitial edema has improved. Ca rdiomegaly is again noted. A minimal pericardial effusion is stable. PELVIS: The distal ureters, urinary bladder and prostate gland are normal. There is high density mate rial in the appendix without acute inflammation. I see no evidence of diverticulitis. No abnormal mas s or fluid collection is present. I do not identify a hernia. No significant osseous abnormality is s een. IMPRESSION: 1. No acute intra-abdominal disease or significant change. 2. Mild interstitial edema and pleural effusions have improved. Minimal pericardial effusion is stabl e. Signer Name: Shemar Franz MD Signed: 06/27/2021 10:51 PM Workstation Name: [id number]
[2021-06-27] MEDS ORDERED: ONDANSETRON 4 MG ODT TAB PO ONE (23:04)
[2021-06-27] MEDS ORDERED: oxyCODONE /ACETAMINOPHEN 5-325MG TAB PO ONE (23:04)
--- NOTE | 2021-06-27 23:04 | Emergency Department Report ---
ED Abdominal Pain HPI - General Chief Complaint: Nausea/Vomiting/Diarrhea Stated Complaint: VOMITING Source: patient Mode of arrival: Ambulatory Limitations: No Limitations - History of Present Illness MD Complaint: abdominal pain, other (nausea and vomiting) Severity scale (0 -10): 10 - Related Data Home Medications Medication Instructions Recorded Confirmed Last Taken Dolutegravir/Rilpivirine [[place] 1 tab PO DAILY 11/19/20 06/13/21 06/12/21 50-25 mg Tablet] Previous Rx's Medication Instructions Recorded Last Taken Type Clopidogrel [Plavix] 75 mg PO QDAY #30 tablet 01/09/21 06/12/21 Rx Darunavir [Prezista] 800 mg PO QDAY tablet 01/09/21 06/12/21 Rx hydrALAZINE [Apresoline TAB] 100 mg PO TID #90 tab 01/09/21 06/12/21 Rx Aspirin EC [Halfprin EC] 81 mg PO QDAY tablet 06/13/21 Unknown Rx AtorvaSTATin [Lipitor] 40 mg PO QHS tablet 06/13/21 Unknown Rx Baclofen [Lioresal] 10 mg PO QHS PRN tablet 06/13/21 Unknown Rx Darunavir [Prezista] 800 mg PO QDAY tablet 06/13/21 Unknown Rx Famotidine [Pepcid] 10 mg PO BID tablet 06/13/21 Unknown Rx Ferric Citrate (Nf) 1 tab PO QDAY 06/13/21 Unknown Rx Lispro Insulin [HumaLOG] 30 unit SUB-Q BIDDIAB units 06/13/21 Unknown Rx Losartan [Cozaar] 50 mg PO QDAY tablet 06/13/21 Unknown Rx cloNIDine [Catapres] 0.1 mg PO TORY PRN tablet 06/13/21 Unknown Rx labetaloL [Labetalol 100mg TAB] 300 mg PO BID tablet 06/13/21 Unknown Rx NIFEdipine XL [Procardia Xl] 30 mg PO QDAY@0600 #30 tablet 06/14/21 Unknown Rx HYDROcodone/APAP 5-325 [[place] 1 each PO Q6HR PRN #10 tablet 06/16/21 Unknown Rx 5/325] Esomeprazole Magnesium [NexIUM] 40 mg PO QDAY #30 06/24/21 Unknown Rx HYDROcodone/APAP 5-325 [[place] 1 each PO Q6HR PRN #12 tablet 06/24/21 Unknown Rx 5/325] Metoclopramide [Reglan] 10 mg PO Q6HR PRN #20 tab 06/24/21 Unknown Rx Ondansetron [Zofran Odt] 4 mg PO Q4HR PRN #20 tab.rapdis 06/24/21 Unknown Rx Dicyclomine [Bentyl] 20 mg PO Q6H PRN #30 tablet 06/27/21 Unknown Rx Famotidine [Pepcid] 20 mg PO BID #60 tablet 06/27/21 Unknown Rx Ondansetron [Zofran Odt] 4 mg PO Q6HR PRN #20 tab.rapdis 06/27/21 Unknown Rx Allergies Allergy/AdvReac Type Severity Reaction Status Date / Time Penicillins Allergy Hives Verified 06/24/21 12:17 tramadol AdvReac Vomiting Verified 06/24/21 12:17 ED Review of Systems ROS: Stated complaint: VOMITING Other details as noted in HPI ED Past Medical Hx - Past Medical History Hx Hypertension: Yes Hx Congestive Heart Failure: No Hx Diabetes: Yes Hx Renal Disease: Yes (T, Th, Sat) Hx Headaches / Migraines: Yes (Migraines) Hx Asthma: No Hx COPD: No Hx HIV: Yes Additional medical history: HIV (on medication, unknown last CD4 count). gastroparesis - Surgical History Hx Cholecystectomy: Yes Additional Surgical History: Dialysis port in right chest. fistula in left arm - Social History Smoking Status: Never Smoker - Medications Home Medications: Home Medications Medication Instructions Recorded Confirmed Last Taken Type Dolutegravir/Rilpivirine [Juluca 1 tab PO DAILY 11/19/20 06/13/21 06/12/21 History 50-25 mg Tablet] Clopidogrel [Plavix] 75 mg PO QDAY #30 tablet 01/09/21 06/13/21 06/12/21 Rx Darunavir [Prezista] 800 mg PO QDAY tablet 01/09/21 06/13/21 06/12/21 Rx hydrALAZINE [Apresoline TAB] 100 mg PO TID #90 tab 01/09/21 06/13/21 06/12/21 Rx Aspirin EC [Halfprin EC] 81 mg PO QDAY tablet 06/13/21 Unknown Rx AtorvaSTATin [Lipitor] 40 mg PO QHS tablet 06/13/21 Unknown Rx Baclofen [Lioresal] 10 mg PO QHS PRN tablet 06/13/21 Unknown Rx Darunavir [Prezista] 800 mg PO QDAY tablet 06/13/21 Unknown Rx Famotidine [Pepcid] 10 mg PO BID tablet 06/13/21 Unknown Rx Ferric Citrate (Nf) 1 tab PO QDAY 06/13/21 Unknown Rx Lispro Insulin [HumaLOG] 30 unit SUB-Q BIDDIAB units 06/13/21 Unknown Rx Losartan [Cozaar] 50 mg PO QDAY tablet 06/13/21 Unknown Rx cloNIDine [Catapres] 0.1 mg PO TORY PRN tablet 06/13/21 Unknown Rx labetaloL [Labetalol 100mg TAB] 300 mg PO BID tablet 06/13/21 Unknown Rx NIFEdipine XL [Procardia Xl] 30 mg PO QDAY@0600 #30 tablet 06/14/21 Unknown Rx HYDROcodone/APAP 5-325 [[place] 1 each PO Q6HR PRN #10 tablet 06/16/21 Unknown Rx 5/325] Esomeprazole Magnesium [NexIUM] 40 mg PO QDAY #30 capsule. 06/24/21 Unknown Rx HYDROcodone/APAP 5-325 [[place] 1 each PO Q6HR PRN #12 tablet 06/24/21 Unknown Rx 5/325] Metoclopramide [Reglan] 10 mg PO Q6HR PRN #20 tab 06/24/21 Unknown Rx Ondansetron [Zofran Odt] 4 mg PO Q4HR PRN #20 tab.rapdis 06/24/21 Unknown Rx Dicyclomine [Bentyl] 20 mg PO Q6H PRN #30 tablet 06/27/21 Unknown Rx Famotidine [Pepcid] 20 mg PO BID #60 tablet 06/27/21 Unknown Rx Ondansetron [Zofran Odt] 4 mg PO Q6HR PRN #20 tab.rapdis 06/27/21 Unknown Rx ED Physical Exam - General Limitations: No Limitations ED Course Vital Signs 06/27/21 06/27/21 06/27/21 16:20 18:37 20:06 Temperature 98.3 F Pulse Rate 99 H 95 H 100 H Respiratory 15 18 Rate Blood Pressure 213/128 228/138 Blood Pressure 207/132 [Right] O2 Sat by Pulse 97 99 Oximetry 06/27/21 20:09 Temperature Pulse Rate Respiratory 16 Rate Blood Pressure Blood Pressure [Right] O2 Sat by Pulse Oximetry ED Medical Decision Making - Lab Data Result diagrams: 06/27/21 19:29 06/27/21 19:29 - Radiology Data Radiology results: report reviewed, image reviewed [facility] [address] [place] [address] Cat Scan Report Signed Patient: COLEMAN COLE III MR# : [id number] : 1985 Acct:[id number] Age/Sex: 36 / M ADM Date: 06/27/21 Loc: ED Attending Dr: Ordering Physician: NESS PRINGLE Date of Service: 06/27/21 Procedure(s): CT abdomen pelvis wo con Accession Number(s): [id number] cc: NESS PRINGLE CT OF THE ABDOMEN AND PELVIS WITHOUT CONTRAST INDICATION / CLINICAL INFORMATION: Abdominal pain with nausea and vomiting. TECHNIQUE: All CT scans at this location are performed using CT dose reduction for ALARA by means of automated exposure control. COMPARISON: 06/12/21. FINDINGS: ABDOMEN: The gallbladder is surgically absent. The liver, spleen, bile ducts, pancreas, adrenal glands and kidneys are normal in appearance. There is a moderate amount of stool throughout the colon. I see no evidence of bowel obstruction, wall thickening or free air. No acute vascular abnormality is present. There is no evidence of adenopathy. There are minimal bilateral pleural effusions, decreased in size. Interstitial edema has improved. Cardiomegaly is again noted. A minimal pericardial effusion is stable. PELVIS: The distal ureters, urinary bladder and prostate gland are normal. There is high density material in the appendix without acute inflammation. I see no evidence of diverticulitis. No abnormal mass or fluid collection is present. I do not identify a hernia. No significant osseous abnormality is seen. IMPRESSION: 1. No acute intra-abdominal disease or significant change. 2. Mild interstitial edema and pleural effusions have improved. Minimal pericardial effusion is stable. Signer Name: Shemar Franz MD Signed: 06/27/2021 10:51 PM Workstation Name: [id number] Transcribed By: RT Dictated By: Shemar Franz MD Electronically Authenticated By: Shemar Franz MD Signed Date/Time: 06/27/212250 DD/ 46 TD/TT: Print Cancel Critical care attestation.: If time is entered above; I have spent that time in minutes in the direct care of this critically ill patient, excluding procedure time. ED Disposition Clinical Impression: Nausea and vomiting in adult patient, Viral gastroenteritis Abdominal pain Qualifiers: Abdominal location: generalized Qualified Code(s): R10.84 - Generalized abdominal pain Disposition: 01 HOME / SELF CARE / HOMELESS Is pt being admited?: No Does the pt Need Aspirin: No Condition: Stable Instructions: Abdominal Pain, Adult, [id number], Nausea and Vomiting, Adult, [id number], Viral Gastroenteritis, Adult, [id number] Additional Instructions: All lab test results were reviewed and are all nonactionable. Abdomen pelvis CT scan without contrast shows no acute abdominal and pelvis abnormalities. Your symptoms are likely viral gastroenteritis. Therefore take medications with food, drink plenty of fluids and follow-up with your primary care physician in 5 to 7 days for reevaluation. Maintain a clear liquid diet for 12 to 24 hours while taking medications. Return to the ED immediately if your symptoms get worse. Prescriptions: Dicyclomine [Bentyl] 20 mg PO Q6H PRN #30 tablet PRN Reason: Abdominal pain Famotidine [Pepcid] 20 mg PO BID #60 tablet Ondansetron [Zofran Odt] 4 mg PO Q6HR PRN #20 tab.rapdis PRN Reason: Nausea And Vomiting Referrals: [facility] [Provider Group] - 3-5 Days Time of Disposition: 23:04 Print Language: GEORGIAN
--- NOTE | 2021-06-27 23:07 | Emergency Department Report ---
ED N/V/D HPI - General Chief complaint: Nausea/Vomiting/Diarrhea Stated complaint: VOMITING Source: patient Mode of arrival: Ambulatory Limitations: No Limitations - History of Present Illness Initial comments: Patient is a 36-year-old male with a history of HIV; migraine headaches; ESRD on hemodialysis, [id number]-pggxtuwud diabetes, hyperlipidemia and hypertension who presents to the ED with complaint of acute onset persistent intermittent nausea and vomiting, diffuse abdominal pain for the last 1 week, worse in the last 3 days. Patient states that he has not been able to keep anything down since the onset of the symptoms especially in the last 24 hours. Patient denies dizziness, syncope, chest pain, shortness of breath, change in vision, hematochezia, diarrhea, cough, sore throat, hematemesis or hemoptysis. MD complaint: nausea, vomiting, abdominal pain -: Sudden, week(s) (1) Description of Vomiting: food contents, watery Associated Abdominal Pain: Yes (diffuse) Location: diffuse Radiation: none Severity: severe Pain Scale: 7 Quality: cramping, aching Consistency: intermittent Improves with: none Worsens with: vomiting Context: possible food poisoning Associated Symptoms: denies other symptoms, nausea/vomiting. denies: myalgias, chest pain, cough, diaphoresis, fever/chills, headaches, loss of appetite, malaise, rash, shortness of breath, syncope, weakness - Related Data Home Medications Medication Instructions Recorded Confirmed Last Taken Dolutegravir/Rilpivirine [[place] 1 tab PO DAILY 11/19/20 06/13/21 06/12/21 50-25 mg Tablet] Previous Rx's Medication Instructions Recorded Last Taken Type Clopidogrel [Plavix] 75 mg PO QDAY #30 tablet 01/09/21 06/12/21 Rx Darunavir [Prezista] 800 mg PO QDAY tablet 01/09/21 06/12/21 Rx hydrALAZINE [Apresoline TAB] 100 mg PO TID #90 tab 01/09/21 06/12/21 Rx Aspirin EC [Halfprin EC] 81 mg PO QDAY tablet 06/13/21 Unknown Rx AtorvaSTATin [Lipitor] 40 mg PO QHS tablet 06/13/21 Unknown Rx Baclofen [Lioresal] 10 mg PO QHS PRN tablet 06/13/21 Unknown Rx Darunavir [Prezista] 800 mg PO QDAY tablet 06/13/21 Unknown Rx Famotidine [Pepcid] 10 mg PO BID tablet 06/13/21 Unknown Rx Ferric Citrate (Nf) 1 tab PO QDAY 06/13/21 Unknown Rx Lispro Insulin [HumaLOG] 30 unit SUB-Q BIDDIAB units 06/13/21 Unknown Rx Losartan [Cozaar] 50 mg PO QDAY tablet 06/13/21 Unknown Rx cloNIDine [Catapres] 0.1 mg PO TORY PRN tablet 06/13/21 Unknown Rx labetaloL [Labetalol 100mg TAB] 300 mg PO BID tablet 06/13/21 Unknown Rx NIFEdipine XL [Procardia Xl] 30 mg PO QDAY@0600 #30 tablet 06/14/21 Unknown Rx HYDROcodone/APAP 5-325 [[place] 1 each PO Q6HR PRN #10 tablet 06/16/21 Unknown Rx 5/325] Esomeprazole Magnesium [NexIUM] 40 mg PO QDAY #30 capsule. 06/24/21 Unknown Rx HYDROcodone/APAP 5-325 [[place] 1 each PO Q6HR PRN #12 tablet 06/24/21 Unknown Rx 5/325] Metoclopramide [Reglan] 10 mg PO Q6HR PRN #20 tab 06/24/21 Unknown Rx Ondansetron [Zofran Odt] 4 mg PO Q4HR PRN #20 tab.rapdis 06/24/21 Unknown Rx Dicyclomine [Bentyl] 20 mg PO Q6H PRN #30 tablet 06/27/21 Unknown Rx Famotidine [Pepcid] 20 mg PO BID #60 tablet 06/27/21 Unknown Rx Ondansetron [Zofran Odt] 4 mg PO Q6HR PRN #20 tab.rapdis 06/27/21 Unknown Rx Allergies Allergy/AdvReac Type Severity Reaction Status Date / Time Penicillins Allergy Hives Verified 06/24/21 12:17 tramadol AdvReac Vomiting Verified 06/24/21 12:17 ED Review of Systems ROS: Stated complaint: VOMITING Other details as noted in HPI Constitutional: denies: chills, fever Eyes: denies: eye pain, eye discharge, vision change ENT: denies: ear pain, throat pain Respiratory: denies: cough, shortness of breath, wheezing Cardiovascular: denies: chest pain, palpitations Endocrine: no symptoms reported Gastrointestinal: abdominal pain, nausea, vomiting. denies: diarrhea Genitourinary: denies: urgency, dysuria Musculoskeletal: denies: back pain, joint swelling, arthralgia Skin: denies: rash, lesions Neurological: denies: headache, weakness, paresthesias Psychiatric: denies: anxiety, depression Hematological/Lymphatic: denies: easy bleeding, easy bruising ED Past Medical Hx - Past Medical History Hx Hypertension: Yes Hx Congestive Heart Failure: No Hx Diabetes: Yes Hx Renal Disease: Yes (T, Th, Sat) Hx Headaches / Migraines: Yes (Migraines) Hx Asthma: No Hx COPD: No Hx HIV: Yes Additional medical history: HIV (on medication, unknown last CD4 count). gastroparesis - Surgical History Hx Cholecystectomy: Yes Additional Surgical History: Dialysis port in right chest. fistula in left arm - Social History Smoking Status: Never Smoker - Medications Home Medications: Home Medications Medication Instructions Recorded Confirmed Last Taken Type Dolutegravir/Rilpivirine [[place] 1 tab PO DAILY 11/19/20 06/13/21 06/12/21 History 50-25 mg Tablet] Clopidogrel [Plavix] 75 mg PO QDAY #30 tablet 01/09/21 06/13/21 06/12/21 Rx Darunavir [Prezista] 800 mg PO QDAY tablet 01/09/21 06/13/21 06/12/21 Rx hydrALAZINE [Apresoline TAB] 100 mg PO TID #90 tab 01/09/21 06/13/21 06/12/21 Rx Aspirin EC [Halfprin EC] 81 mg PO QDAY tablet 06/13/21 Unknown Rx AtorvaSTATin [Lipitor] 40 mg PO QHS tablet 06/13/21 Unknown Rx Baclofen [Lioresal] 10 mg PO QHS PRN tablet 06/13/21 Unknown Rx Darunavir [Prezista] 800 mg PO QDAY tablet 06/13/21 Unknown Rx Famotidine [Pepcid] 10 mg PO BID tablet 06/13/21 Unknown Rx Ferric Citrate (Nf) 1 tab PO QDAY 06/13/21 Unknown Rx Lispro Insulin [HumaLOG] 30 unit SUB-Q BIDDIAB units 06/13/21 Unknown Rx Losartan [Cozaar] 50 mg PO QDAY tablet 06/13/21 Unknown Rx cloNIDine [Catapres] 0.1 mg PO TORY PRN tablet 06/13/21 Unknown Rx labetaloL [Labetalol 100mg TAB] 300 mg PO BID tablet 06/13/21 Unknown Rx NIFEdipine XL [Procardia Xl] 30 mg PO QDAY@0600 #30 tablet 06/14/21 Unknown Rx HYDROcodone/APAP 5-325 [[place] 1 each PO Q6HR PRN #10 tablet 06/16/21 Unknown Rx 5/325] Esomeprazole Magnesium [NexIUM] 40 mg PO QDAY #30 capsule.dr 06/24/21 Unknown Rx HYDROcodone/APAP 5-325 [[place] 1 each PO Q6HR PRN #12 tablet 06/24/21 Unknown Rx 5/325] Metoclopramide [Reglan] 10 mg PO Q6HR PRN #20 tab 06/24/21 Unknown Rx Ondansetron [Zofran Odt] 4 mg PO Q4HR PRN #20 tab.rapdis 06/24/21 Unknown Rx Dicyclomine [Bentyl] 20 mg PO Q6H PRN #30 tablet 06/27/21 Unknown Rx Famotidine [Pepcid] 20 mg PO BID #60 tablet 06/27/21 Unknown Rx Ondansetron [Zofran Odt] 4 mg PO Q6HR PRN #20 tab.rapdis 06/27/21 Unknown Rx ED Physical Exam - General Limitations: No Limitations General appearance: alert, in no apparent distress - Head Head exam: Present: atraumatic, normocephalic, normal inspection - Eye Eye exam: Present: normal appearance, PERRL, EOMI Pupils: Present: normal accommodation - ENT ENT exam: Present: normal exam, normal orophraynx, mucous membranes moist, TM's normal bilaterally, normal external ear exam - Neck Neck exam: Present: normal inspection, full ROM - Respiratory Respiratory exam: Present: normal lung sounds bilaterally. Absent: respiratory distress, wheezes, rales, stridor, chest wall tenderness, accessory muscle use, decreased breath sounds, other - Cardiovascular Cardiovascular Exam: Present: regular rate, normal rhythm, normal heart sounds. Absent: systolic murmur, diastolic murmur, rubs, gallop - GI/Abdominal GI/Abdominal exam: Present: soft, tenderness (diffuse), normal bowel sounds. Absent: guarding, rebound, hyperactive bowel sounds, hypoactive bowel sounds - Extremities Exam Extremities exam: Present: normal inspection, full ROM, normal capillary refill - Back Exam Back exam: Present: normal inspection, full ROM. Absent: tenderness, CVA tenderness (R), CVA tenderness (L), muscle spasm, paraspinal tenderness, vertebral tenderness - Neurological Exam Neurological exam: Present: alert, oriented X3, CN II-XII intact, normal gait, reflexes normal - Psychiatric Psychiatric exam: Present: normal affect, normal mood - Skin Skin exam: Present: warm, dry, intact, normal color. Absent: rash ED Course Vital Signs 06/27/21 06/27/21 06/27/21 16:20 18:37 20:06 Temperature 98.3 F Pulse Rate 99 H 95 H 100 H Respiratory 15 18 Rate Blood Pressure 213/128 228/138 Blood Pressure 207/132 [Right] O2 Sat by Pulse 97 99 Oximetry 06/27/21 20:09 Temperature Pulse Rate Respiratory 16 Rate Blood Pressure Blood Pressure [Right] O2 Sat by Pulse Oximetry ED Medical Decision Making - Lab Data Result diagrams: 06/27/21 19:29 06/27/21 19:29 - Radiology Data [facility] [address] [place] [address] Cat Scan Report Signed Patient: COLEMAN COLE III MR# : [id number] : 1985 Acct:[id number] Age/Sex: 36 / M ADM Date: 06/27/21 Loc: ED Attending Dr: Ordering Physician: NESS PRINGLE Date of Service: 06/27/21 Procedure(s): CT abdomen pelvis wo con Accession Number(s): [id number] cc: NESS PRINGLE CT OF THE ABDOMEN AND PELVIS WITHOUT CONTRAST INDICATION / CLINICAL INFORMATION: Abdominal pain with nausea and vomiting. TECHNIQUE: All CT scans at this location are performed using CT dose reduction for ALARA by means of automated exposure control. COMPARISON: 06/12/21. FINDINGS: ABDOMEN: The gallbladder is surgically absent. The liver, spleen, bile ducts, pancreas, adrenal glands and kidneys are normal in appearance. There is a moderate amount of stool throughout the colon. I see no evidence of bowel obstruction, wall thickening or free air. No acute vascular abnormality is present. There is no evidence of adenopathy. There are minimal bilateral pleural effusions, decreased in size. Interstitial edema has improved. Cardiomegaly is again noted. A minimal pericardial effusion is stable. PELVIS: The distal ureters, urinary bladder and prostate gland are normal. There is high density material in the appendix without acute inflammation. I see no evidence of diverticulitis. No abnormal mass or fluid collection is present. I do not identify a hernia. No significant osseous abnormality is seen. IMPRESSION: 1. No acute intra-abdominal disease or significant change. 2. Mild interstitial edema and pleural effusions have improved. Minimal pericardial effusion is stable. Signer Name: Shemar Franz MD Signed: 06/27/2021 10:51 PM Workstation Name: [id number] Transcribed By: RT Dictated By: Shemar Franz MD Electronically Authenticated By: Shemar Franz MD Signed Date/Time: 06/27/212250 DD/ 46 TD/TT: Print - Medical Decision Making This is a 36-year-old male with a history of HIV; migraine headaches; ESRD on hemodialysis, sic-fmehngw-saaogmyym diabetes, hyperlipidemia and hypertension who presents to the ED with complaint of acute onset persistent intermittent nausea and vomiting, diffuse abdominal pain for the last 1 week, worse in the last 3 days. Patient states that he has not been able to keep anything down since the onset of the symptoms especially in the last 24 hours. In the ED, patient is alert and oriented x3 and is not in any distress. Patient was treated for pain in the ED. Lab test results were reviewed and are all nonactionable. Abdomen pelvis CT scan without contrast showed no acute abnormalities. On reevaluation, patient's pain is well controlled medication. Patient symptoms are likely due to viral gastroenteritis. Patient was therefore discharged home on medications and advised to follow-up with his primary care physician in 5 to 7 days for reevaluation or return to the ED immediately if sym ptoms get worse. - Differential Diagnosis dehydration; appendicitis; pancreatitis; sbo; gastroenteritis Critical care attestation.: If time is entered above; I have spent that time in minutes in the direct care of this critically ill patient, excluding procedure time. ED Disposition Clinical Impression: Nausea and vomiting in adult patient, Viral gastroenteritis Abdominal pain Qualifiers: Abdominal location: generalized Qualified Code(s): R10.84 - Generalized abdominal pain Disposition: HOME / SELF CARE / HOMELESS Is pt being admited?: No Does the pt Need Aspirin: No Condition: Stable Instructions: Viral Gastroenteritis, Adult, [id number], Nausea and Vomiting, Adult, [id number], Abdominal Pain, Adult, [id number] Additional Instructions: All lab test results were reviewed and are all nonactionable. Abdomen pelvis CT scan without contrast shows no acute abdominal and pelvis abnormalities. Your symptoms are likely viral gastroenteritis. Therefore take medications with food, drink plenty of fluids and follow-up with your primary care physician in 5 to 7 days for reevaluation. Maintain a clear liquid diet for 12 to 24 hours while taking medications. Return to the ED immediately if your symptoms get worse. Prescriptions: Dicyclomine [Bentyl] 20 mg PO Q6H PRN #30 tablet PRN Reason: Abdominal pain Famotidine [Pepcid] 20 mg PO BID #60 tablet Ondansetron [Zofran Odt] 4 mg PO Q6HR PRN #20 tab.rapdis PRN Reason: Nausea And Vomiting Referrals: [facility] [Provider Group] - 3-5 Days Print Language: CROATIAN
[2021-06-27 23:59] VITALS: BP 153/92
== END 2021-06-27 23:58 | disposition home or self-care (01) ==
LOC: ED 16:17
DX: R11.2 Nausea with vomiting, unspecified (principal); A08.4 Viral intestinal infection, unspecified; R10.84 Generalized abdominal pain; I10 Essential (primary) hypertension; E11.8 Type 2 diabetes mellitus with unspecified complications; Z90.49 Acquired absence of other specified parts of digestive tract; Z88.0 Allergy status to penicillin; Z88.5 Allergy status to narcotic agent
CPT/HCPCS: 36415; 74176; 80053; 81001; 83690; 85025; 96374; 96375; 99284; J0360; J2270; J2405; J3490; Q0162

== ENCOUNTER 2021-06-30 02:25 | Emergency (ER) | payer OTHER ==
--- NOTE | 2021-06-30 02:42 | Emergency Department Report ---
ED Syncope HPI - General Chief Complaint: Syncope Stated Complaint: SYNCOPE WITH LOC Time Seen by Provider: 06/30/21 02:31 Source: patient Exam Limitations: no limitations - History of Present Illness Initial Comments: Chief complaint: Syncope HPI: This is a 35-year-old male with history of end-stage renal disease on hemodialysis, insulin-dependent diabetes, HIV, hyperlipidemia, severe obesity, CVA who presents with recurrent syncope for the last several weeks as well as vomiting. Patient said generalized body aches. Dr. Peralta is his lens marker. He does not have primary care physician. Syncope occurs after vomiting. In December of this year patient was admitted for syncope evaluation. Syncope at that time was attributed to acute CVA and orthostatic hypotension. Patient was discharged on aspirin and Plavix. Timing/Prior Episodes: other (Multiple episodes over the last several weeks.) Precipitating Factors: Positive: nausea Context: standing Loss of Consciousness: brief (seconds) Current Symptoms: back to normal - Related Data Allergies/Adverse Reactions: Allergies Penicillins Allergy (Verified 06/24/21 12:17) Hives tramadol Adverse Reaction (Verified 06/24/21 12:17) Vomiting Home Medications: Ambulatory Orders Dolutegravir/Rilpivirine [Juluca 50-25 mg Tablet] 1 tab PO DAILY 11/19/20 Clopidogrel [Plavix] 75 mg PO QDAY #30 tablet 01/09/21 Darunavir [Prezista] 800 mg PO QDAY tablet 01/09/21 hydrALAZINE [Apresoline TAB] 100 mg PO TID #90 tab 01/09/21 Aspirin EC [Halfprin EC] 81 mg PO QDAY tablet 06/13/21 AtorvaSTATin [Lipitor] 40 mg PO QHS tablet 06/13/21 Baclofen [Lioresal] 10 mg PO QHS PRN tablet 06/13/21 Darunavir [Prezista] 800 mg PO QDAY tablet 06/13/21 Famotidine [Pepcid] 10 mg PO BID tablet 06/13/21 Ferric Citrate (Nf) 1 tab PO QDAY 06/13/21 Lispro Insulin [HumaLOG] 30 unit SUB-Q BIDDIAB units 06/13/21 Losartan [Cozaar] 50 mg PO QDAY tablet 06/13/21 cloNIDine [Catapres] 0.1 mg PO TORY PRN tablet 06/13/21 labetaloL [Labetalol 100mg TAB] 300 mg PO BID tablet 06/13/21 NIFEdipine XL [Procardia Xl] 30 mg PO QDAY@0600 #30 tablet 06/14/21 HYDROcodone/APAP 5-325 [[place] 5/325] 1 each PO Q6HR PRN #10 tablet 06/16/21 Esomeprazole Magnesium [NexIUM] 40 mg PO QDAY #30 capsule. 06/24/21 HYDROcodone/APAP 5-325 [[place] 5/325] 1 each PO Q6HR PRN #12 tablet 06/24/21 Metoclopramide [Reglan] 10 mg PO Q6HR PRN #20 tab 06/24/21 Ondansetron [Zofran Odt] 4 mg PO Q4HR PRN #20 tab.rapdis 06/24/21 Dicyclomine [Bentyl] 20 mg PO Q6H PRN #30 tablet 06/27/21 Famotidine [Pepcid] 20 mg PO BID #60 tablet 06/27/21 Ondansetron [Zofran Odt] 4 mg PO Q6HR PRN #20 tab.rapdis 06/27/21 Metoclopramide [Reglan] 10 mg PO ACHS 30 Days #120 tablet 06/30/21 oxyCODONE /ACETAMINOPHEN [Percocet 5/325] 1 tab PO Q6HR PRN #10 tablet 06/30/21 ED Review of Systems ROS: Stated complaint: SYNCOPE WITH LOC Other details as noted in HPI Comment: All other systems reviewed and negative Constitutional: denies: chills, fever, malaise Respiratory: denies: cough, shortness of breath Cardiovascular: denies: chest pain Gastrointestinal: nausea, vomiting ED Past Medical Hx - Past Medical History Previous Medical History?: Yes Hx Hypertension: Yes Hx Congestive Heart Failure: No Hx Diabetes: Yes Hx Renal Disease: Yes (T, Th, Sat) Hx Headaches / Migraines: Yes (Migraines) Hx Asthma: No Hx COPD: No Hx HIV: Yes Additional medical history: HIV (on medication, unknown last CD4 count). gastroparesis - Surgical History Past Surgical History?: Yes Hx Cholecystectomy: Yes Additional Surgical History: Dialysis port in right chest. fistula in left arm - Social History Smoking Status: Never Smoker - Medications Home Medications: Home Medications Medication Instructions Recorded Confirmed Last Taken Type Dolutegravir/Rilpivirine [Juluca 1 tab PO DAILY 11/19/20 06/13/21 06/12/21 History 50-25 mg Tablet] Clopidogrel [Plavix] 75 mg PO QDAY #30 tablet 01/09/21 06/13/21 06/12/21 Rx Darunavir [Prezista] 800 mg PO QDAY tablet 01/09/21 06/13/21 06/12/21 Rx hydrALAZINE [Apresoline TAB] 100 mg PO TID #90 tab 01/09/21 06/13/21 06/12/21 Rx Aspirin EC [Halfprin EC] 81 mg PO QDAY tablet 06/13/21 Unknown Rx AtorvaSTATin [Lipitor] 40 mg PO QHS tablet 06/13/21 Unknown Rx Baclofen [Lioresal] 10 mg PO QHS PRN tablet 06/13/21 Unknown Rx Darunavir [Prezista] 800 mg PO QDAY tablet 06/13/21 Unknown Rx Famotidine [Pepcid] 10 mg PO BID tablet 06/13/21 Unknown Rx Ferric Citrate (Nf) 1 tab PO QDAY 06/13/21 Unknown Rx Lispro Insulin [HumaLOG] 30 unit SUB-Q BIDDIAB units 06/13/21 Unknown Rx Losartan [Cozaar] 50 mg PO QDAY tablet 06/13/21 Unknown Rx cloNIDine [Catapres] 0.1 mg PO TORY PRN tablet 06/13/21 Unknown Rx labetaloL [Labetalol 100mg TAB] 300 mg PO BID tablet 06/13/21 Unknown Rx NIFEdipine XL [Procardia Xl] 30 mg PO QDAY@0600 #30 tablet 06/14/21 Unknown Rx HYDROcodone/APAP 5-325 [[place] 1 each PO Q6HR PRN #10 tablet 06/16/21 Unknown Rx 5/325] Esomeprazole Magnesium [NexIUM] 40 mg PO QDAY #30 darwin. 06/24/21 Unknown Rx HYDROcodone/APAP 5-325 [[place] 1 each PO Q6HR PRN #12 tablet 06/24/21 Unknown Rx 5/325] Metoclopramide [Reglan] 10 mg PO Q6HR PRN #20 tab 06/24/21 Unknown Rx Ondansetron [Zofran Odt] 4 mg PO Q4HR PRN #20 tab.rapdis 06/24/21 Unknown Rx Dicyclomine [Bentyl] 20 mg PO Q6H PRN #30 tablet 06/27/21 Unknown Rx Famotidine [Pepcid] 20 mg PO BID #60 tablet 06/27/21 Unknown Rx Ondansetron [Zofran Odt] 4 mg PO Q6HR PRN #20 tab.rapdis 06/27/21 Unknown Rx Metoclopramide [Reglan] 10 mg PO ACHS 30 Days #120 tablet 06/30/21 Unknown Rx oxyCODONE /ACETAMINOPHEN [Percocet 1 tab PO Q6HR PRN #10 tablet 06/30/21 Unknown Rx 5/325] ED Physical Exam - General Limitations: No Limitations General appearance: alert, in no apparent distress - Head Head exam: Present: atraumatic, normocephalic - Eye Eye exam: Present: normal appearance - ENT ENT exam: Present: mucous membranes moist - Neck Neck exam: Present: normal inspection, full ROM - Respiratory Respiratory exam: Present: normal lung sounds bilaterally. Absent: respiratory distress, wheezes, rales, rhonchi - Cardiovascular Cardiovascular Exam: Present: regular rate, normal rhythm, normal heart sounds. Absent: systolic murmur, diastolic murmur, rubs, gallop - GI/Abdominal GI/Abdominal exam: Present: soft, normal bowel sounds. Absent: distended, tenderness, guarding, rebound - Rectal Rectal exam: Present: deferred - Extremities Exam Extremities exam: Present: normal inspection - Back Exam Back exam: Present: normal inspection - Neurological Exam Neurological exam: Present: alert, oriented X3, CN II-XII intact, normal gait. Absent: motor sensory deficit - Expanded Neurological Exam Expanded Patient oriented to: Present: person, place, time Speech: Present: fluid speech Sensory exam: Upper Extremity Light Touch: Normal Motor strength exam: RUE: 5, LUE: 5, RLE: 5, LLE: 5 Best Eye Response (Bradly): (4) open spontaneously Best Motor Response (Bradly): (6) obeys commands Best Verbal Response (Bradly): (5) oriented Bradly Total: 15 - Psychiatric Psychiatric exam: Present: normal affect, normal mood - Skin Skin exam: Present: warm, dry, intact, normal color. Absent: rash ED Course Vital Signs 06/30/21 06/30/21 06/30/21 02:59 04:15 04:26 Temperature 99 F 99.2 F Pulse Rate 100 H 94 H 94 H Respiratory 20 20 Rate Blood Pressure 176/94 193/112 [Right] O2 Sat by Pulse 99 95 Oximetry 06/30/21 05:18 Temperature Pulse Rate 99 H Respiratory 20 Rate Blood Pressure 176/108 [Right] O2 Sat by Pulse 99 Oximetry ED Medical Decision Making - Lab Data Result diagrams: 06/30/21 03:00 06/30/21 03:00 - EKG Data -: EKG Interpreted by Me EKG shows normal: sinus rhythm Rate: normal - EKG Data 06/30/21 04:15 EKG obtained 0411 EKG interpreted by me Rate 95 bpm normal axis prolonged QTC no ST elevation nonspecific T wave pattern - Medical Decision Making 1. Recurrent syncope: Differential includes orthostatic hypotension vasovagal syncope. 2. Nausea vomiting with history of gastroparesis: No vomiting observed emergency department 3. Generalized body pain secondary to end-stage renal disease Prescribed Reglan and Percocet. Critical care attestation.: If time is entered above; I have spent that time in minutes in the direct care of this critically ill patient, excluding procedure time. ED Disposition Clinical Impression: Gastroparesis, Generalized body aches, Syncope Disposition: 01 HOME / SELF CARE / HOMELESS Is pt being admited?: No Does the pt Need Aspirin: No Condition: Stable Instructions: Syncope (ED) Prescriptions: oxyCODONE /ACETAMINOPHEN [Percocet 5/325] 1 tab PO Q6HR PRN #10 tablet PRN Reason: Pain Metoclopramide [Reglan] 10 mg PO ACHS 30 Days #120 tablet Referrals: ESSENCE HILL MD [Staff Physician] - 3-5 Days
[2021-06-30] MEDS ORDERED: MORPHINE 4 MG/1 ML INJ IM ONE (02:43)
[2021-06-30] MEDS ORDERED: ONDANSETRON 4 MG ODT TAB PO ONE (02:43)
[2021-06-30 03:21] LABS: Hematocrit 34.5 % (35.5-45.6); Hemoglobin 11.1 gm/dl (11.8-15.2); Mean Corpuscular HGB Conc 32 % (32-34); Mean Corpuscular Volume 94 fl (84-94); Platelet Count 184 K/mm3 (140-440); Red Blood Count 3.68 M/mm3 (3.65-5.03); Red Cell Distribution Width 16.4 % (13.2-15.2)
[2021-06-30 03:25] LABS: Basophils % (Auto) 0.8 % (0.0-1.8); Eosinophils # (Auto) 0.1 K/mm3 (0.0-0.4); Eosinophils % (Auto) 2.1 % (0.0-4.3); Lymphocytes # (Auto) 0.6 K/mm3 (1.2-5.4); Lymphocytes % (Auto) 11.6 % (13.4-35.0); Monocytes # (Auto) 0.5 K/mm3 (0.0-0.8); Monocytes % (Auto) 9.1 % (0.0-7.3)
[2021-06-30] MEDS ORDERED: MORPHINE 4 MG/1 ML INJ IV ONE ×2 (03:44→05:27)
[2021-06-30 03:58] LABS: Calcium 8.3 mg/dL (8.4-10.2)
[2021-06-30 05:20] VITALS: BP 176/108
[2021-06-30] MEDS ORDERED: ONDANSETRON 4 MG/2 ML INJ IV ONE (05:27)
[2021-06-30] MEDS ORDERED: oxyCODONE /ACETAMINOPHEN 5-325MG TAB PO ONE (05:27)
--- NOTE | 2021-07-01 11:37 | Electrocardiograph Report ---
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
== END 2021-06-30 06:22 | disposition home or self-care (01) ==
LOC: ED 02:25
DX: R55 Syncope and collapse (principal); M79.18 Myalgia, other site; K31.84 Gastroparesis; I12.0 Hypertensive chronic kidney disease with stage 5 chronic kidney disease or end stage renal disease; N18.6 End stage renal disease; E11.8 Type 2 diabetes mellitus with unspecified complications; G43.909 Migraine, unspecified, not intractable, without status migrainosus; Z21 Asymptomatic human immunodeficiency virus [HIV] infection status; Z90.49 Acquired absence of other specified parts of digestive tract; Z98.890 Other specified postprocedural states; Z88.0 Allergy status to penicillin; Z88.5 Allergy status to narcotic agent
CPT/HCPCS: 36415; 80048; 85025; 93005; 96374; 96375; 96376; 99284; J2270; J2405; J3490; Q0162

== ENCOUNTER 2021-07-03 05:57 | Day surgery (SDC) | payer OTHER ==
[~2021-07-03 05:57] MED LIST changes: +HEPARIN 10,000 UNITS/10 ML VIAL IV ONE; -MIDAZOLAM 2 MG/2 ML INJ IV NR; -SODIUM CHLORIDE 0.9% 1000 ML 1,000 ML IV SCH; +SODIUM CHLORIDE 0.9% IRR 1,500 ML BOTTLE IR ONE
[2021-07-03] MEDS ORDERED: SODIUM CHLORIDE 0.9% 1000 ML 1,000 ML IV SCH (06:00)
[2021-07-03] MEDS ORDERED: MIDAZOLAM 2 MG/2 ML INJ IV NR (06:00)
[2021-07-03 06:42] LABS: Hematocrit 35.4 % (35.5-45.6); Hemoglobin 11.4 gm/dl (11.8-15.2); Mean Corpuscular HGB Conc 32 % (32-34); Mean Corpuscular Volume 95 fl (84-94); Platelet Count 231 K/mm3 (140-440); Red Blood Count 3.73 M/mm3 (3.65-5.03); Red Cell Distribution Width 16.1 % (13.2-15.2)
[2021-07-03 06:56] LABS: Calcium 8.5 mg/dL (8.4-10.2)
--- NOTE | 2021-07-03 07:39 | Anesthesia Consultation ---
Anesthesia Consult and Med Hx Date of service: 07/03/21 - Airway Anesthetic Teeth Evaluation: Good ROM Head & Neck: Adequate Mental/Hyoid Distance: Adequate Mallampati Class: Class III Intubation Access Assessment: Possibly Difficult - Pre-Operative Health Status ASA Pre-Surgery Classification: ASA4 Proposed Anesthetic Plan: General - Pulmonary Hx Smoking: Yes (quit 2007) Hx Respiratory Symptoms: No - Cardiovascular System Hx Hypertension: Yes (took hydralazine this morning) Hx Heart Attack/AMI: No Hx Percutaneous Transluminal Coronary Angioplasty (PTCA): No - Central Nervous System CVA: Yes (?CVA 12/2020 w/ residual RLE weakness; last plavix 07/02/21) Hx Back Pain: Yes (chornic) - Endocrine Hx End Stage Renal Disease: Yes (last HD 07/02/21) Hx Liver Disease: No Hx Non-Insulin Dependent Diabetes: Yes Hx Thyroid Disease: No - Hematic Hx Anemia: Yes - Other Systems Hx Obesity: Yes (BMI 37) - Additional Comments Anesthesia Medical History Comments: No hx anesthetic complications. BP elevated this morning despite taking scheduled antihypertensive at home. Will give additional antihypertensive in preop.
--- NOTE | 2021-07-03 07:39 | Anesthesia Day of Surgery ---
Anesthesia Day of Surgery - Day of Surgery Patient Examined: Yes Patient H&P Reviewed: Yes Patient is NPO: Yes
[2021-07-03] MEDS ORDERED: LIDOCAINE (1%) 10 MG/1 ML VIAL 20 ML MDV ONE (07:40)
[2021-07-03] MEDS ORDERED: HEPARIN 10,000 UNITS/10 ML VIAL ONE (07:40)
[2021-07-03] MEDS ORDERED: SODIUM CHLORIDE 0.9% 500 ML 500 ML ONE (07:40)
[2021-07-03] MEDS ORDERED: HEPARIN 5,000 UNIT/1 ML VIAL ONE (07:40)
[2021-07-03] MEDS ORDERED: BUPIVACAINE/PF (0.5%) 5 MG/1 ML 30 ML VIAL INFILTRATI ONE ×2 (07:40→11:36)
[2021-07-03] MEDS ORDERED: LIDOCAINE MPF (2%) 20 MG/1 ML VIAL 5 ML ONE (07:44)
[2021-07-03] MEDS ORDERED: cloNIDine 0.2 MG TAB PO NR (08:00)
[2021-07-03] MEDS ORDERED: ONDANSETRON 4 MG/2 ML INJ IV PRN (08:00)
[2021-07-03] MEDS ORDERED: rifAMPin 600 MG VIAL ONE (08:03)
[2021-07-03] MEDS ORDERED: SODIUM CHLORIDE 0.9% 250ML 0 ML ONE (08:03)
[2021-07-03] MEDS ORDERED: fentaNYL 100 MCG/2 ML INJ ONE (08:14)
[2021-07-03] MEDS ORDERED: propofoL 200 MG/20 ML VIAL IV ONE (08:14)
[2021-07-03] MEDS ORDERED: LIDOCAINE 1%/EPINEPHRINE 1:100,000 VIAL (20 ML) INFILTRATI ONE (08:15)
[2021-07-03] MEDS: fentaNYL 100 MCG/2 ML INJ IV PRN ×2 (08:16→12:48)
--- NOTE | 2021-07-03 08:27 | Short Stay Summary ---
Short Stay Documentation Date of service: 07/03/21 Narrative H&P: The patient is a 36-year-old male with a history of end-stage renal disease who is currently on hemodialysis through a transposed left brachiobasilic arteriovenous fistula. He has had multiple complications associated with the fistula and has required stent grafts that extend from the arterial inflow of the fistula to the venous outflow of the fistula. Due to the placement of the stent grafts the fistula has thrombosed multiple times requiring multiple thrombectomies. Given the requirement of multiple thrombectomies the long-term success of the fistula is compromised and it is felt that it would be best for a revision of the fistula which would include an interposition graft using the arterial inflow of the fistula and the axillary vein is a venous outflow. Additionally he will require partial excision of the stent graft to allow for tunneling of the graft. He will require placement of a permacath for temporary dialysis access until the access is ready for cannulation. He was given the risk, benefits, and alternative procedures and consented to the procedure. - History Principal diagnosis: Complications of Dialysis Access Past Medical History: dialysis, ESRD, HIV/AIDS, hypertension Past Surgical History: Other (Creation of left brachiobasilic arteriovenous fistula, elevation of left brachiobasilic arteriovenous fistula, multiple endovascular interventions of left brachiobasilic fistula) Social history: single - Allergies and Medications Current Medications: Allergies Penicillins Allergy (Verified 06/24/21 12:17) Hives tramadol Adverse Reaction (Verified 06/24/21 12:17) Vomiting Home Medications Medication Instructions Recorded Confirmed Last Taken Type Dolutegravir/Rilpivirine [Juluca 1 tab PO DAILY 11/19/20 07/01/21 07/02/21 History 50-25 mg Tablet] hydrALAZINE [Apresoline TAB] 100 mg PO TID #90 tab 01/09/21 07/03/21 07/03/21 05:15 Rx Darunavir [Prezista] 800 mg PO QDAY tablet 06/13/21 07/01/21 07/02/21 Rx Metoclopramide [Reglan] 10 mg PO ACHS 30 Days #120 tablet 06/30/21 07/01/21 07/02/21 Rx Ritonavir [Norvir] 100 mg PO DAILY 07/01/21 07/01/21 07/02/21 History Clopidogrel [Plavix] 75 mg PO QDAY 07/03/21 07/03/21 07/02/21 History Active Medications Clonidine HCl (Clonidine 0.2 Mg Tab) 0.2 mg PO PREOP NR Stop: 07/03/21 10:00 Last Admin: 07/03/21 07:53 Dose: 0.2 mg Documented by: Fentanyl (Fentanyl 100 Mcg/2 Ml Inj) 50 mcg IV Q5MIN PRN PRN Reason: Pain , Severe (7-10) Stop: 07/03/21 23:00 Last Admin: 07/03/21 08:16 Dose: 50 mcg Documented by: Clindamycin HCl (Cleocin 900 Mg/50 Ml) 900 mg in 50 mls @ 100 mls/hr IV PREOP NR; Protocol Stop: 07/03/21 23:59 Sodium Chloride (Nacl 0.9% 1000 Ml) 1,000 mls @ 42 mls/hr IV DIRECT SHIRA Stop: 07/03/21 23:59 Last Admin: 07/03/21 07:28 Dose: 42 mls/hr Documented by: Midazolam HCl (Midazolam 2 Mg/2 Ml Inj) 2 mg IV PREOP NR Stop: 07/03/21 23:01 Last Admin: 07/03/21 07:56 Dose: 2 mg Documented by: Ondansetron HCl (Ondansetron 4 Mg/2 Ml Inj) 4 mg IV ONCE PRN PRN Reason: Nausea And Vomiting Stop: 07/03/21 11:00 - Physical exam General appearance: no acute distress Lungs: Normal air movement Breasts: deferred Heart: Regular rate Gastrointestinal: normal Male Genitourinary: deferred Rectal Exam: deferred Extremities: abnormal (Left arm arteriovenous fistula with palpable thrill) - Brief post op/procedure progress note Date of procedure: 07/03/21 Pre-op diagnosis: Complications of Dialysis Access Post-op diagnosis: same Procedure: 1. Ultrasound-Guided Access Right Internal Jugular Vein 2. Placement of 23 cm Bard Glidepath Permacath 3. Radiologic Supervision with Interpretation 4. Revision of Left Brachiobasilic Arteriovenous Fistula with Ligation and Interposition 7 mm Bovine Artegraft Anesthesia: ANH Surgeon: BABAR VENTURA Estimated blood loss: minimal Pathology: none Condition: stable - Disposition Condition at discharge: Good Short Stay Discharge Plan Activity: other (No heavy lifting with left arm for 2 weeks.) Wound: open to air, keep clean and dry, other (Okay to wash the left arm wounds with soap and water but do not soak in water for 2 weeks.) Special Instructions: other (Do not use left arm AV graft until cleared by vascular surgeon.) Follow up with: BABAR VENTURA MD [Staff Physician] - 14 Days Prescriptions: Oxycodone HCl/Acetaminophen [Percocet 7.5/325 mg] 1 each PO Q6HR PRN #30 tablet PRN Reason: Pain
[2021-07-03] MEDS ORDERED: SODIUM CHLORIDE 0.9% 500 ML IVPB IV ONE (09:34)
[2021-07-03] MEDS ORDERED: HEPARIN 10,000 UNITS/10 ML VIAL IV ONE (09:43)
[2021-07-03] MEDS ORDERED: HEPARIN 5,000 UNIT/1 ML VIAL SUB-Q ONE (09:50)
[2021-07-03] MEDS ORDERED: PHENYLEPHRINE/NS 1,000 MCG/10 ML SYRINGE (OR USE) IV ONE (10:08)
[2021-07-03] MEDS ORDERED: dexAMETHasone 20 MG/5 ML VIAL ONE (10:11)
[2021-07-03] MEDS ORDERED: SODIUM CHLORIDE 0.9% IRR 1,500 ML BOTTLE IR ONE (10:19)
[2021-07-03] MEDS ORDERED: SODIUM CHLORIDE P/F VIAL 10 ML 10 ML ONE (10:24)
[2021-07-03] MEDS ORDERED: SODIUM CHLORIDE 0.9% P/F 10 ML VIAL IV ONE (10:37)
[2021-07-03] MEDS ORDERED: rifAMPin 600 MG VIAL IV ONE (10:37)
[2021-07-03] MEDS ORDERED: THROMBIN (RECOMBINANT) 5,000 UNIT VIAL TP ONE ×2 (11:33→11:36)
--- NOTE | 2021-07-03 12:23 | Fluoroscopy Report ---
INTRAOPERATIVE FLUOROSCOPY: CHEST INDICATION / CLINICAL INFORMATION: THROMBOSED FISTULA. TECHNIQUE: Intraoperative spot images were obtained during the procedure. FINDINGS: Intraoperative images from permacath placement. Please refer to operative report for further information. Fluoroscopy Time: 22 seconds. Fluoroscopy Images: 2. Signer Name: Oz Doherty MD Signed: 07/03/2021 12:18 PM Workstation Name: [facility]
--- NOTE | 2021-07-03 12:31 | Operative Report ---
Operative Report Operative Report: Date of procedure: 07/03/2021 Pre-operative diagnosis: Complications of Dialysis Access Post-operative diagnosis: Same Procedure(s): 1. Ultrasound-Guided Access Right Internal Vein 2. Placement of 23 cm GlidePath Permacath 3. Radiologic Supervision with Interpretation 4. Revision of Left Brachiobasilic Arteriovenous Fistula with Ligation and Interposition 7 mm Bovine Artegraft Surgeon: Bassem Wade MD Hearing Examiner: None Anesthesia: General Endotracheal Anesthesia EBL: Minimal Counts: Correct Complications: None Condition: Stable Findings: Successful placement of right IJ permacath with the distal tip in the right atrium and no evidence of pneumothorax at the completion of the case. Left arm arteriovenous graft had a palpable thrill at the completion of the case. Specimen: None Indication: The patient is a 36-year-old male with a history of end-stage renal disease who is currently on hemodialysis through left arm arteriovenous fistula. The fistula has stent graft extending throughout the fistula and is required multiple interventions for stenosis as well as thrombosis. He is in need of a revision to prevent future interventions. He requires placement of an interposition graft as well as a permacath until the access is ready for use. He has been given the risk, benefits, and alternative procedures and consented to the procedure. Description of Procedure: The patient was brought to the wood and wood products labourer and laid in supine position and the right neck and chest were prepped and draped in normal sterile fashion. Ultrasound was used to identify the right internal jugular vein and confirm patency. Once patency was confirmed an 11 blade was used to make a small stab incision and a 21-gauge micropuncture needle was used with ultrasound guidance to enter the right internal jugular vein. A 0.018 micropuncture wire was advanced into the inferior vena cava under fluoroscopy and after removing the needle the micropuncture sheath was advanced into the internal jugular vein by Seldinger technique. The wire and inner cannula were removed and a 0.035 J-wire was advanced into the inferior vena cava under direct fluoroscopic visualization. The tract was serially dilated up to a 16 Kosovan peel-away safety sheath. An exit site on the chest was then chosen and the presumed tunnel was anesthetized with lidocaine. A small stab incision was made on the chest and then the permacath was connected to the tunneler and pulled antegrade through the tunnel. The J-wire and inner cannula were remove from the SafeSheath and the catheter was inserted into the safe sheath. The safe sheath was then peeled away while advancing the catheter. The catheter was positioned under fluoroscopy with the distal tip in the right atrium. Once in adequate position, both ports were aspirated, flushed, and primed with the appropriate amount of heparin. The neck incision was then closed with 4-0 Monocryl in interrupted subcuticular fashion and dressed with Dermabond. The permacath was secured in place with a 2-0 Ethilon in interrupted fashion and dressed with a sterile dressing. Final fluoroscopy demonstrated the catheter was in adequate position with the distal tip in the right atrium and no evidence of pneumothorax. The sterile field was then broken and the patient's left arm was prepped and draped in normal sterile fashion. A transverse incision was then created over the arterial inflow of the fistula and carried down to the fistula using sharp dissection. The arterial inflow the fistula was dissected circumferentially and controlled with a vessel loop. A longitudinal incision was then created in the axillary crease and carried down to the axillary vein, proximal to the stent grafts, and the axillary vein was dissected circumferentially and controlled with a vessel loop. I then used a Stefani-Wick tunneler to tunnel from the arterial inflow incision to the venous outflow incision and then pulled a 7 mm Bovine Artegraft from the venous outflow incision towards the arterial inflow incision. I infused with heparinized saline to ensure that the graft was not kinked or twisted. I then clamped the fistula towards the venous outflow, and the arterial incision, and clamped the fistula near the arterial anastomosis with an angled DeBakey clamp. I then used curved Mayos to divide the fistula and ligated the venous outflow portion with a 2-0 silk tie. I then beveled the graft and created an end-to-end anastomosis between the graft and the arterial inflow the fistula using two 5-0 Prolene's in running fashion. I then clamped the graft just distal to the anastomosis and released the clamp on the arterial inflow of the fistula to ensure that there was hemostasis at the anastomosis. Once hemostasis was ensured I reclamped the arterial inflow the fistula and remove the clamp from the graft. I pulled the graft into the tunnel to make sure there was no redundancy. I then used a Satinsky clamp to control the axillary vein using 2-0 silk tie to ligate the vein distal to the planned anastomosis. I created a venotomy in the axillary vein using an 11 blade and Mendez scissors. I then cut the graft to length and beveled the and and then created an end-to-side anastomosis using a 6-0 Prolene in running fashion. Prior to completing the anastomosis I flashed the axillary vein as well as the arterial inflow the graft and then reclamped both. I flushed the venotomy using heparinized saline and then completed the anastomosis. After the anastomosis was complete I released the clamps allowing flow into the graft. Hemostasis within the wound was achieved with a combination of 6-0 Prolene's in interrupted fashion, on the anastomosis, and thrombin-soaked Gelfoam within the wound. Once hemostasis was achieved the wounds were anesthetized with 0.5% Marcaine and closed in 2 layers using a 3-0 Vicryl running fashion the deep dermal layer, 4-0 Monocryl in running fashion the subcuticular layer, and dressed with Dermabond. The patient tolerated the procedure well. All sponge, needle, and instrument counts were correct. The patient was taken to the recovery area in stable condition.
[2021-07-03] MEDS ORDERED: HYDROcodone/ACETAMINOPHEN 5-325 MG TAB PO PRN (12:44)
[2021-07-03] MEDS ORDERED: HYDROmorphone 1 MG/1 ML INJ IV ONE (14:36)
--- NOTE | 2021-07-03 17:13 | Post Anesthesia Evaluation ---
- Post Anesthesia Evaluation Patient Participated: Yes Airway Patent: Yes Stable Respiratory Function: Yes Nausea/Vomiting: No Temp > 96.8F: Yes Pain Manageable: Yes Adequeate Hydration: Yes Anesthesia Complications: No
[2021-07-03 19:04] VITALS: BP 162/96
== END 2021-07-03 15:47 | disposition home or self-care (01) ==
LOC: OR 05:57
PROVIDERS: ATTEND Surgery Vascular Surgery
DX: T82.868A Thrombosis due to vascular prosthetic devices, implants and grafts, initial encounter (principal); Z20.822 Contact with and (suspected) exposure to COVID-19; I12.0 Hypertensive chronic kidney disease with stage 5 chronic kidney disease or end stage renal disease; E11.22 Type 2 diabetes mellitus with diabetic chronic kidney disease; N18.6 End stage renal disease; Z99.2 Dependence on renal dialysis; Z86.73 Personal history of transient ischemic attack (TIA), and cerebral infarction without residual deficits; Z87.891 Personal history of nicotine dependence; E66.9 Obesity, unspecified; Z68.37 Body mass index [BMI] 37.0-37.9, adult; Z79.899 Other long term (current) drug therapy; Z98.890 Other specified postprocedural states; Y83.8 Other surgical procedures as the cause of abnormal reaction of the patient, or of later complication, without mention of misadventure at the time of the procedure
CPT/HCPCS: 36415; 36561; 36833; 77001; 80048; 82962; 85027; 86850; 86900; 86901; C1750; C1768; C1769; J1100; J1170; J1644; J2250; J2370; J2405; J2704; J3010; J3490; J7030; J7040; J7502; U0003; J7120; Q0162; J7050

== ENCOUNTER 2021-07-11 13:50 | Emergency (ER) | payer OTHER ==
--- NOTE | 2021-07-11 14:11 | Emergency Department Report ---
ED General Adult HPI - General Chief complaint: Extremity Problem,Nontraumatic Stated complaint: Left arm pain Time Seen by Provider: 07/11/21 14:02 Source: EMS Mode of arrival: Stretcher Limitations: No Limitations - History of Present Illness Initial comments: Patient presented by ambulance with multiple complaints. He had an AV fistula surgery done several days ago. He states it was maybe a week. This was done here. He has had increasing pain over the last day or 2 in this site. He states that he thought some of the wounds looked open. Today, he would notice that he had worsening pain and called EMS. EMS he states made him "climb into the ambulance." He felt a sharp pop in the suture sites. He is complaining of significant pain in the left upper extremity where the surgery was. There has been no fever. He has not noticed purulent drainage. He states that he really does not have chest pain although the pain in the left arm does radiate from the axilla where his surgery was into the upper chest. He did have a chest IV put in for ongoing dialysis and he states that that is somewhat sore. Patient states he just does not feel well. He felt lightheaded. He did not have chest pain or palpitations proper. He has had no GI symptoms. Severity scale (0 -10): 4 - Related Data Home Medications Medication Instructions Recorded Confirmed Last Taken Dolutegravir/Rilpivirine [Juluca 1 tab PO DAILY 11/19/20 07/01/21 07/02/21 50-25 mg Tablet] Ritonavir [Norvir] 100 mg PO DAILY 07/01/21 07/01/21 07/02/21 Clopidogrel [Plavix] 75 mg PO QDAY 07/03/21 07/03/21 07/02/21 Previous Rx's Medication Instructions Recorded Last Taken Type hydrALAZINE [Apresoline TAB] 100 mg PO TID #90 tab 01/09/21 07/03/21 05:15 Rx Darunavir [Prezista] 800 mg PO QDAY tablet 06/13/21 07/02/21 Rx Metoclopramide [Reglan TAB] 10 mg PO ACHS 30 Days #120 tablet 06/30/21 07/02/21 Rx Oxycodone HCl/Acetaminophen 1 each PO Q6HR PRN #30 tablet 07/03/21 Unknown Rx [Percocet 7.5/325 mg] Allergies Allergy/AdvReac Type Severity Reaction Status Date / Time Penicillins Allergy Hives Verified 06/24/21 12:17 tramadol AdvReac Vomiting Verified 06/24/21 12:17 ED Review of Systems ROS: Stated complaint: Left arm pain Other details as noted in HPI Comment: All other systems reviewed and negative Constitutional: denies: fever Eyes: denies: vision change ENT: denies: throat pain Respiratory: denies: cough Cardiovascular: as per HPI Endocrine: denies: unexplained weight loss Gastrointestinal: denies: abdominal pain Musculoskeletal: denies: back pain Skin: denies: rash Neurological: denies: headache Hematological/Lymphatic: denies: easy bruising ED Past Medical Hx - Past Medical History Hx Hypertension: Yes (took hydralazine this morning) Hx Heart Attack/AMI: No Hx Congestive Heart Failure: No Hx Diabetes: Yes (DIET CONTROLLED) Hx Liver Disease: No Hx Headaches / Migraines: Yes (Migraines) Hx HIV: Yes Additional medical history: HIV (on medication, unknown last CD4 count). gastroparesis - Surgical History Hx Cholecystectomy: Yes Additional Surgical History: Dialysis port in right chest. fistula in left arm - Social History Smoking Status: Former Smoker - Medications Home Medications: Home Medications Medication Instructions Recorded Confirmed Last Taken Type Dolutegravir/Rilpivirine [Juluca 1 tab PO DAILY 11/19/20 07/01/21 07/02/21 History 50-25 mg Tablet] hydrALAZINE [Apresoline TAB] 100 mg PO TID #90 tab 01/09/21 07/03/21 07/03/21 05:15 Rx Darunavir [Prezista] 800 mg PO QDAY tablet 06/13/21 07/01/21 07/02/21 Rx Metoclopramide [Reglan TAB] 10 mg PO ACHS 30 Days #120 tablet 06/30/21 07/01/21 07/02/21 Rx Ritonavir [Norvir] 100 mg PO DAILY 07/01/21 07/01/21 07/02/21 History Clopidogrel [Plavix] 75 mg PO QDAY 07/03/21 07/03/21 07/02/21 History Oxycodone HCl/Acetaminophen 1 each PO Q6HR PRN #30 tablet 07/03/21 Unknown Rx [Percocet 7.5/325 mg] ED Physical Exam - General Limitations: No Limitations, Other (Pulse ox noted and normal) General appearance: alert, in no apparent distress, obese - Head Head exam: Present: atraumatic, normocephalic - Eye Eye exam: Present: normal appearance, EOMI. Absent: scleral icterus - ENT ENT exam: Present: normal orophraynx, normal external ear exam - Neck Neck exam: Present: normal inspection. Absent: meningismus - Respiratory Respiratory exam: Present: normal lung sounds bilaterally. Absent: respiratory distress - Cardiovascular Cardiovascular Exam: Present: regular rate, normal rhythm - GI/Abdominal GI/Abdominal exam: Present: soft. Absent: tenderness - Extremities Exam Extremities exam: Present: normal capillary refill, other (Incisions in the left arm are clean, dry, intact. There is tenderness with palpation over both incisions, at the antecubital and axillary areas. There is no warmth erythema. There is no wound dehiscence.). Absent: calf tenderness - Back Exam Back exam: Absent: CVA tenderness (R), CVA tenderness (L) - Neurological Exam Neurological exam: Present: alert, oriented X3, CN II-XII intact. Absent: motor sensory deficit - Psychiatric Psychiatric exam: Present: normal affect, normal mood - Skin Skin exam: Present: warm, dry ED Course Vital Signs 07/11/21 13:54 Temperature 98.7 F Pulse Rate 88 Respiratory 18 Rate Blood Pressure 196/120 [Left] O2 Sat by Pulse 98 Oximetry - Reevaluation(s) Reevaluation #1: 07/11/21 14:11 Labs and EKG ordered ED Medical Decision Making - Medical Decision Making Patient had presented with multiple complaints including concern over his surgery site. There was no evidence of surgery site infection. He does not have wound dehiscence. He had not been feeling well so routine labs have been obtained. I do not believe clinically these will be contributory. Regardless, we will evaluate him and arrange disposition at that time. Critical Care Time: No Critical care attestation.: If time is entered above; I have spent that time in minutes in the direct care of this critically ill patient, excluding procedure time. ED Disposition Clinical Impression: Postoperative pain, End stage renal disease, Malaise Disposition: 01 HOME / SELF CARE / HOMELESS Is pt being admited?: No Condition: Stable Additional Instructions: Continue home medication. Drink any water. Return for problems. Follow-up with your regular doctor and your surgeon. Try ice to the wounds.
[2021-07-11] MEDS ORDERED: SODIUM CHLORIDE 0.9% 500 ML 500 ML IV ONE (14:12)
[2021-07-11] MEDS ORDERED: fentaNYL 100 MCG/2 ML INJ IV ONE ×2 (14:12→16:09)
[2021-07-11] MEDS ORDERED: ONDANSETRON 4 MG/2 ML INJ IV ONE (14:12)
[2021-07-11 15:11] VITALS: BP 199/115
[2021-07-11 15:19] LABS: Basophils % (Auto) 0.7 % (0.0-1.8); Eosinophils # (Auto) 0.2 K/mm3 (0.0-0.4); Hematocrit 36.1 % (35.5-45.6); Hemoglobin 11.3 gm/dl (11.8-15.2); Lymphocytes # (Auto) 0.8 K/mm3 (1.2-5.4); Lymphocytes % (Auto) 12.8 % (13.4-35.0); Mean Corpuscular HGB Conc 31 % (32-34); Mean Corpuscular Volume 94 fl (84-94); Monocytes # (Auto) 0.5 K/mm3 (0.0-0.8); Monocytes % (Auto) 8.2 % (0.0-7.3); Platelet Count 211 K/mm3 (140-440); Red Blood Count 3.85 M/mm3 (3.65-5.03); Red Cell Distribution Width 16.7 % (13.2-15.2)
[2021-07-11 15:33] LABS: Calcium 8.5 mg/dL (8.4-10.2)
== END 2021-07-11 16:23 | disposition home or self-care (01) ==
LOC: ED 13:50
DX: G89.18 Other acute postprocedural pain (principal); N18.6 End stage renal disease; R53.81 Other malaise; Z88.0 Allergy status to penicillin; Z88.5 Allergy status to narcotic agent; I10 Essential (primary) hypertension; E11.8 Type 2 diabetes mellitus with unspecified complications
CPT/HCPCS: 36415; 80048; 85025; 96361; 96374; 96375; 99283; J2405; J3010; J7040

== ENCOUNTER 2021-10-21 12:26 | Emergency (ER) | payer OTHER ==
[2021-10-21 13:53] VITALS: BP 221/133
[2021-10-21] MEDS ORDERED: MORPHINE 4 MG/1 ML INJ IM ONE (15:04)
[2021-10-21] MEDS ORDERED: ONDANSETRON 4 MG ODT TAB PO ONE (15:04)
[2021-10-21] MEDS ORDERED: DICYCLOMINE 20 MG TAB PO ONE (15:08)
--- NOTE | 2021-10-21 15:14 | Emergency Department Report ---
ED Abdominal Pain HPI - General Chief Complaint: Abdominal Pain Stated Complaint: ABDOMINAL PAIN/VOMITING BLOOD Time Seen by Provider: 10/21/21 14:53 Source: patient Mode of arrival: Ambulatory Limitations: No Limitations - History of Present Illness Initial Comments: 36-year-old black male with a past medical history of hypertension, diabetes, HIV positive, gastroparesis, and end-stage renal disease on HD Thursday and Thursday and had his last HD on Thursday presents to the emergency department for evaluation of abdominal pain since Thursday and nausea and vomiting that started on Thursday. States that pain is diffuse over his entire abdomen and is 10 on a 10 point scale. He denies fever, diarrhea, and penile discharge. He states that he has pain like this on occasion that is usually resolved by Reglan but he took some Reglan today and it did not improve pain. -: Gradual, days(s) (3) Location: diffuse Radiation: none Migration to: no migration Severity: severe Severity scale (0 -10): 10 Quality: cramping, aching Consistency: constant Associated Symptoms: nausea, vomiting. denies: diarrhea, fever, chills, hematemesis, hematochezia, melena, hematuria, anorexia, syncope - Related Data Home Medications Medication Instructions Recorded Confirmed Last Taken Dolutegravir/Rilpivirine [Juluca 1 tab PO DAILY 11/19/20 07/24/21 07/20/21 50-25 mg Tablet] Ritonavir [Norvir] 100 mg PO DAILY 07/01/21 07/24/21 07/20/21 Ferric Citrate (Nf) [Auryxia] 210 mg PO TIDWM 07/24/21 07/24/21 9 Days Ago ~07/15/21 Vit B Complx C/Folic Acid/Zinc 0.8 mg PO QDAY 07/24/21 07/24/21 07/18/21 [Dialyvite 800-Zinc 15 mg Tab] Previous Rx's Medication Instructions Recorded Last Taken Type hydrALAZINE [Apresoline TAB] 100 mg PO TID #90 tab 01/09/21 07/20/21 Rx Darunavir [Prezista] 800 mg PO QDAY tablet 06/13/21 07/20/21 Rx Metoclopramide [Reglan TAB] 10 mg PO ACHS 30 Days #120 tablet 06/30/21 07/20/21 Rx labetaloL [Labetalol 200mg TAB] 200 mg PO BID #60 tablet 07/24/21 Unknown Rx HYDROcodone/APAP 5-325 [[place] 1 each PO Q6HR PRN #12 tablet 07/26/21 Unknown Rx 5/325] Pantoprazole [Protonix] 40 mg PO QDAY #30 tablet 07/26/21 Unknown Rx Allergies Allergy/AdvReac Type Severity Reaction Status Date / Time Penicillins Allergy Hives Verified 07/24/21 10:06 tramadol AdvReac Vomiting Verified 07/24/21 10:06 ED Review of Systems ROS: Stated complaint: ABDOMINAL PAIN/VOMITING BLOOD Other details as noted in HPI Comment: All other systems reviewed and negative Constitutional: denies: chills, fever Respiratory: denies: shortness of breath, SOB with exertion, SOB at rest Cardiovascular: denies: chest pain, palpitations, dyspnea on exertion Endocrine: no symptoms reported Gastrointestinal: abdominal pain, nausea, vomiting. denies: diarrhea, hematemesis, melena, hematochezia Genitourinary: denies: discharge, testicular pain Musculoskeletal: denies: back pain Skin: denies: rash, lesions Neurological: denies: headache, weakness ED Past Medical Hx - Past Medical History Hx Hypertension: Yes (took hydralazine this morning) Hx Heart Attack/AMI: No Hx Congestive Heart Failure: No Hx Diabetes: Yes (DIET CONTROLLED) Hx Liver Disease: No Hx Headaches / Migraines: Yes (Migraines) Hx HIV: Yes Additional medical history: HIV (on medication, unknown last CD4 count). gastroparesis - Surgical History Hx Cholecystectomy: Yes Additional Surgical History: Dialysis port in right chest. fistula in left arm - Social History Smoking Status: Never Smoker - Medications Home Medications: Home Medications Medication Instructions Recorded Confirmed Last Taken Type Dolutegravir/Rilpivirine [Juluca 1 tab PO DAILY 11/19/20 07/24/21 07/20/21 History 50-25 mg Tablet] hydrALAZINE [Apresoline TAB] 100 mg PO TID #90 tab 01/09/21 07/24/21 07/20/21 Rx Darunavir [Prezista] 800 mg PO QDAY tablet 06/13/21 07/24/21 07/20/21 Rx Metoclopramide [Reglan TAB] 10 mg PO ACHS 30 Days #120 tablet 06/30/21 07/24/21 07/20/21 Rx Ritonavir [Norvir] 100 mg PO DAILY 07/01/21 07/24/21 07/20/21 History Ferric Citrate (Nf) [Auryxia] 210 mg PO TIDWM 07/24/21 07/24/21 9 Days Ago History ~07/15/21 Vit B Complx C/Folic Acid/Zinc 0.8 mg PO QDAY 07/24/21 07/24/21 07/18/21 History [Dialyvite 800-Zinc 15 mg Tab] labetaloL [Labetalol 200mg TAB] 200 mg PO BID #60 tablet 07/24/21 Unknown Rx HYDROcodone/APAP 5-325 [[place] 1 each PO Q6HR PRN #12 tablet 07/26/21 Unknown Rx 5/325] Pantoprazole [Protonix] 40 mg PO QDAY #30 tablet 07/26/21 Unknown Rx ED Physical Exam - General Limitations: No Limitations General appearance: alert, in no apparent distress - Head Head exam: Present: atraumatic, normocephalic - Eye Eye exam: Present: normal appearance. Absent: conjunctival injection - Neck Neck exam: Present: normal inspection, full ROM. Absent: tenderness - Respiratory Respiratory exam: Present: normal lung sounds bilaterally. Absent: respiratory distress, wheezes, rales, rhonchi, stridor, chest wall tenderness, accessory muscle use - Cardiovascular Cardiovascular Exam: Present: tachycardia, normal heart sounds - GI/Abdominal GI/Abdominal exam: Present: soft, tenderness (Generalized), normal bowel sounds. Absent: distended, guarding, rebound, rigid - Extremities Exam Extremities exam: Present: normal inspection, normal capillary refill. Absent: pedal edema - Back Exam Back exam: Present: normal inspection. Absent: CVA tenderness (R), CVA tenderness (L) - Neurological Exam Neurological exam: Present: alert, oriented X3 - Psychiatric Psychiatric exam: Present: normal affect, normal mood - Skin Skin exam: Present: warm, dry, intact, normal color ED Course Vital Signs 10/21/21 13:51 Temperature 98.6 F Pulse Rate 102 H Respiratory 17 Rate Blood Pressure 221/133 [Right] O2 Sat by Pulse 99 Oximetry ED Medical Decision Making - Medical Decision Making Patient refused medications and blood work then left AMA without notifying provider. Critical care attestation.: If time is entered above; I have spent that time in minutes in the direct care of this critically ill patient, excluding procedure time. ED Disposition Clinical Impression: Left against medical advice Disposition: 07 LEFT AGAINST MEDICAL ADVICE Is pt being admited?: No Condition: Stable Referrals: PRIMARY CARE, [Primary Care Provider] - 3-5 Days
[2021-10-21] MEDS ORDERED: PROCHLORPERAZINE EDISYLATE 10 MG/2 ML VIAL IM ONE (16:52)
[2021-10-21] MEDS ORDERED: DICYCLOMINE 20 MG/2 ML INJ IM ONE (16:54)
[2021-10-21 16:59] LABS: Bacteria,Urine 1+ /HPF (Negative); Bilirubin,Urine NEG (Negative); Blood,Urine SM (Negative); Color,Urine Yellow (Yellow); Mucus,Urine FEW /HPF; Urobilinogen,Urine < 2.0 mg/dL (<2.0)
[2021-10-21 17:01] LABS: Protein,Urine >500 mg/dL (Negative)
[2021-10-21 17:54] LABS: Basophils % (Auto) 0.6 % (0.0-1.8); Eosinophils # (Auto) 0.3 K/mm3 (0.0-0.4); Eosinophils % (Auto) 3.5 % (0.0-4.3); Hematocrit 35.5 % (35.5-45.6); Hemoglobin 11.7 gm/dl (11.8-15.2); Lymphocytes # (Auto) 1.1 K/mm3 (1.2-5.4); Lymphocytes % (Auto) 14.3 % (13.4-35.0); Mean Corpuscular HGB Conc 33 % (32-34); Mean Corpuscular Volume 92 fl (84-94); Monocytes # (Auto) 0.6 K/mm3 (0.0-0.8); Monocytes % (Auto) 7.5 % (0.0-7.3); Platelet Count 268 K/mm3 (140-440); Red Blood Count 3.84 M/mm3 (3.65-5.03); Red Cell Distribution Width 15.1 % (13.2-15.2)
== END 2021-10-21 17:33 | disposition left against medical advice (07) ==
LOC: ED 12:26
DX: R11.2 Nausea with vomiting, unspecified (principal); R10.9 Unspecified abdominal pain; Z88.0 Allergy status to penicillin; Z88.6 Allergy status to analgesic agent
CPT/HCPCS: 36415; 80053; 81001; 83690; 85025; 99283; J0500; J0780; J3490; Q0162

== ENCOUNTER 2022-02-22 14:27 | Observation (INO) | payer SELFPAY ==
--- NOTE | 2022-02-22 15:55 | Emergency Department Report ---
ED Syncope HPI - General Chief Complaint: Syncope Stated Complaint: WEAKNESS/SNYCOPE Time Seen by Provider: 02/22/22 15:24 Source: patient, old records (from [facility]) Exam Limitations: no limitations - History of Present Illness Initial Comments: 36-year-old male with a past medical history of HIV with CD4 greater than 200 currently antiretrovirals, diabetes which is diet-controlled, end-stage renal disease on dialysis Thursday, , and Thursday, hypertension, g astroparesis, and TIA presents to the hospital with complaints of severe right eye pain, right-sided headache, and syncopal episode. 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 Patient has been unable to complete his outpatient work-up during this time. Possibly 2 weeks ago patient went to the ER with similar complaint and was discharged on pain medication optometry referral. Patient follow-up with raw stock machine loader and was told that he has "bleeding behind his eye" was placed on multiple eyedrops. 2 days later his pain did not improve and therefore he repre sented to [facility] and was admitted to the hospital for 4 days the February 10 through . Patient was treated with pain medication and eyedrops and was discharged with improved eye pain however, it was still persistent. Patient also has had intermittent right-sided facial numbness during this 2-week period. At 9 AM patient woke up with right eye pain and headache but thought it would go away. He went to dialysis. When he returned from dialysis he had worsening right eye pain, syncopal episode, and woke up with nausea and vomiting. Pain is now severe, 10/10, aching and throbbing in nature and exacerbated by light. Patient is current medication includes (currently with him) Biktarvy Percocet 5/325 Zofran His eyedrop medications include: Prednisolone 1% 4 times daily Atropine 1% twice daily Timolol 0.5% twice daily Dorzolamide 2% twice daily Brimonidine tatrate 0.2% twice daily Latanoprost .005% nightly As per [facility] medical record patient is also supposed to take Eliquis 5 mg twice daily Hydralazine 100 mg p.o. 3 times daily Insulin lispro 1 to 6 units subcutaneous 3 times daily before meals and nightly Losartan 100 mg daily Nifedipine 90 mg daily Patient had an echo performed on 12/13/2021 showing EF of 65% and grade 2 diastolic dysfunction Discharge summary from [facility] from December 07 until December 13 admission reviewed Patient was diagnosed with right eye blurry vision related to uncontrolled hypertension that resolved Patient had MRI on December 08 which was negative and had a head and neck CT angiogram without acute findings. Patient apparently was also diagnosed with a left subsegmental pulmonary embolism and november and was started on Eliquis. Patient has been noncompliant with Eliquis because he cannot afford the medication and is not currently taking anticoagulant medication. as per d/c summary 02/10-02/15 Patient apparently was seen several times in the ER for right eye pain since being discharged on 12/13/2021 patient was seen by facilities maintenance worker Dr. 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 He was instructed to see a retina specialist but is awaiting his Medicare activation in February. Patient was admitted for hypertensive requiring Cardene drip during admission. Case was also discussed with Dr. Mando Buck with ophthalmology who states that the goal is comfort care and that there is no salvaging the vision because he has no light perception. It was recommended that patient see a retina specialist to see if his eye would need to be removed. It is also rec ommended that there was no reason to keep checking pressures at this point. He provided recommendation for pts current eye drop regimen 02/04/[address] head that was negative for acute intracranial abnormality these records were placed on the chart - Related Data Allergies/Adverse Reactions: Allergies Penicillins Allergy (Verified 07/24/21 10:06) Hives tramadol Adverse Reaction (Verified 07/24/21 10:06) Vomiting Home Medications: Ambulatory Orders Dolutegravir/Rilpivirine [Juluca 50-25 mg Tablet] 1 tab PO DAILY 11/19/20 hydrALAZINE [Apresoline TAB] 100 mg PO TID #90 tab 01/09/21 Darunavir [Prezista] 800 mg PO QDAY tablet 06/13/21 Metoclopramide [Reglan TAB] 10 mg PO ACHS 30 Days #120 tablet 06/30/21 Ritonavir [Norvir] 100 mg PO DAILY 07/01/21 Ferric Citrate (Nf) [Auryxia] 210 mg PO TIDWM 07/24/21 Vit B Complx C/Folic Acid/Zinc [Dialyvite 800-Zinc 15 mg Tab] 0.8 mg PO QDAY 07/24/21 labetaloL [Labetalol 200mg TAB] 200 mg PO BID #60 tablet 07/24/21 HYDROcodone/APAP 5-325 [[place] 5/325] 1 each PO Q6HR PRN #12 tablet 07/26/21 Pantoprazole [Protonix] 40 mg PO QDAY #30 tablet 07/26/21 ED Review of Systems ROS: Stated complaint: WEAKNESS/SNYCOPE Other details as noted in HPI Comment: All other systems reviewed and negative ED Past Medical Hx - Past Medical History Hx Hypertension: Yes (took hydralazine this morning) Hx CVA: Yes (TIA) Hx Heart Attack/AMI: No Hx Congestive Heart Failure: No Hx Diabetes: Yes (DIET CONTROLLED) Hx Liver Disease: No Hx Headaches / Migraines: Yes (Migraines) Hx HIV: Yes Additional medical history: HIV (on medication, unknown last CD4 count). gastroparesis - Surgical History Hx Cholecystectomy: Yes Additional Surgical History: Dialysis port in right chest. fistula in left arm - Social History Smoking Status: Never Smoker - Medications Home Medications: Home Medications Medication Instructions Recorded Confirmed Last Taken Type Dolutegravir/Rilpivirine [Juluca 1 tab PO DAILY 11/19/20 07/24/21 07/20/21 History 50-25 mg Tablet] hydrALAZINE [Apresoline TAB] 100 mg PO TID #90 tab 01/09/21 07/24/21 07/20/21 Rx Darunavir [Prezista] 800 mg PO QDAY tablet 06/13/21 07/24/21 07/20/21 Rx Metoclopramide [Reglan TAB] 10 mg PO ACHS 30 Days #120 tablet 06/30/21 07/24/21 07/20/21 Rx Ritonavir [Norvir] 100 mg PO DAILY 07/01/21 07/24/21 07/20/21 History Ferric Citrate (Nf) [Auryxia] 210 mg PO TIDWM 07/24/21 07/24/21 9 Days Ago History ~07/15/21 Vit B Complx C/Folic Acid/Zinc 0.8 mg PO QDAY 07/24/21 07/24/21 07/18/21 History [Dialyvite 800-Zinc 15 mg Tab] labetaloL [Labetalol 200mg TAB] 200 mg PO BID #60 tablet 07/24/21 Unknown Rx HYDROcodone/APAP 5-325 [[place] 1 each PO Q6HR PRN #12 tablet 07/26/21 Unknown Rx 5/325] Pantoprazole [Protonix] 40 mg PO QDAY #30 tablet 07/26/21 Unknown Rx ED Physical Exam - General Limitations: No Limitations - Other Other exam information: General: No acute distress Head: Atraumatic Eyes: Right pupil is irregular shaped, approximately 4 to 5 mm in size and unreactive to light. Extraocular was intact. Right conjunctival erythema noted. Positive photo sensitivity to light ENT: Moist mucous membranes Neck: Normal appearance, no midline tenderness Chest: Clear to auscultation bilaterally CV: Regular rate and rhythm, left arm dialysis access Abdomen: Soft, normal bowel sounds, nontender, nondistended, no rebound or guarding Back: Normal inspection Extremity: Normal inspection, full range of motion Neuro: Alert O x 3, no facial asymmetry, speech clear, no gross motor sensory deficit Psych: Appropriate behavior Skin: No rash ED Course Vital Signs 02/22/22 02/22/22 02/22/22 15:10 16:49 22:18 Temperature 98.1 F 98.6 F Pulse Rate 86 86 Respiratory 18 18 Rate Blood Pressure 130/94 210/114 [Left] O2 Sat by Pulse 97 95 98 Oximetry - Reevaluation(s) Reevaluation #1: 02/22/22 22:22 Patient is now hypertensive. Hydralazine ordered. Additional pain medicine ordered ED Medical Decision Making - Lab Data Result diagrams: 02/22/22 15:42 02/22/22 15:42 Lab Results 02/22/22 02/22/22 Range/Units 15:42 15:42 WBC 6.8 (4.5-11.0) K/mm3 RBC 3.52 L (3.65-5.03) M/mm3 Hgb 11.1 L (11.8-15.2) gm/dl Hct 33.7 L (35.5-45.6) % MCV 96 H (84-94) fl MCH 32 (28-32) pg MCHC 33 (32-34) % RDW 15.1 (13.2-15.2) % Plt Count 231 (140-440) K/mm3 Lymph % (Auto) 9.2 L (13.4-35.0) % [place] % (Auto) 7.0 (0.0-7.3) % Eos % (Auto) 1.9 (0.0-4.3) % Baso % (Auto) 0.5 (0.0-1.8) % Lymph # (Auto) 0.6 L (1.2-5.4) K/mm3 [place] # (Auto) 0.5 (0.0-0.8) K/mm3 Eos # (Auto) 0.1 (0.0-0.4) K/mm3 Baso # (Auto) 0.0 (0.0-0.1) K/mm3 Seg Neutrophils % 81.4 H (40.0-70.0) % Seg Neutrophils # 5.5 (1.8-7.7) K/mm3 Sodium 136 L (137-145) mmol/L Potassium 4.2 (3.6-5.0) mmol/L Chloride 97.4 L (98-107) mmol/L Carbon Dioxide 29 (22-30) mmol/L Anion Gap 14 mmol/L BUN 18 (9-20) mg/dL Creatinine 6.7 H (0.8-1.3) mg/dL Estimated GFR 12 ml/min BUN/Creatinine Ratio 3 % Glucose 132 H (75-100) mg/dL Calcium 8.9 (8.4-10.2) mg/dL Total Bilirubin 0.50 (0.1-1.2) mg/dL AST 15 (5-40) units/L ALT 7 (7-56) units/L Alkaline Phosphatase 61 (35-129) units/L Troponin T 0.173 H* (0.00-0.029) ng/mL Total Protein 7.3 (6.3-8.2) g/dL Albumin 3.9 (3.9-5) g/dL Albumin/Globulin Ratio 1.1 % Triglycerides 94 (2-149) mg/dL Cholesterol 131 (50-199) mg/dL LDL Cholesterol Direct 82 (50-130) mg/dL HDL Cholesterol 34 L (40-59) mg/dL Cholesterol/HDL Ratio 3.85 % - EKG Data -: EKG Interpreted by Me EKG shows normal: sinus rhythm, ST-T waves (No STEMI) Rate: normal - Radiology Data Radiology results: report reviewed CT BRAIN: 02/22/2022 INDICATION / CLINICAL INFORMATION: syncope, right eye pain. COMPARISON: CT brain 07/21/2021 FINDINGS: BRAIN/INTRACRANIAL STRUCTURES: Unenhanced CT images of the brain demonstrate no evidence of acute abnormality. Ventricles and sulci are within normal limits of size and shape for a patient of this age. There is no evidence of acute ischemic injury, hemorrhage, or mass. There are no abnormal extra- axial fluid collections. EXTRACRANIAL STRUCTURES: Unremarkable. IMPRESSION: No acute mallet. No change when compared to 07/21/2021 - Medical Decision Making 36-year-old male presents to the hospital with significant right eye pain and syncopal episode after dialysis. Differential for syncope includes arrhythmia, vasovagal, and volume depletion. Patient initially normotensive with history of significant hypertension and recurrent admissions for hypertensive emergency. Once again CT head is unremarkable. Patient has a nonfocal neuro exam. [facility] medical record was very helpful. Patient has been blind in the right eye for 2 years likely secondary to central vein occlusion with secondary neovascular glaucoma for at least the past 2 months. Patient does not have light perception of the right eye and has been placed on multiple eyedrops by facilities maintenance worker with instructions to follow-up with retina specialist for possible enucleation of the right eye for symptomatic relief. For this reason patient does not require emergent transfer to a facility with ophthalmology at this time since vision is not salvageable. Patient still will be admitted to the hospital for monitoring for syncopal episode with multiple cardiac risk factors and mildly elevated troponin likely secondary to renal insufficiency and is similar to baseline. Repeat troponin pending. Patient not complain of chest pain. EKG unchanged from previous. Hospitalist to admit Critical Care Time: Yes Critical care time in (mins) excluding proc time.: 35 Critical care attestation.: If time is entered above; I have spent that time in minutes in the direct care of this critically ill patient, excluding procedure time. Critical Care Time: 35 Minutes of critical care time excluding procedures were used in the care of the patient. I discussed treatment plan with the nursing team members. I reviewed electronic record and reviewed recent records from [facility]. Patient required multiple interventions and reassessments. ED Disposition Clinical Impression: Syncope, ESRD on dialysis, Intractable pain, Uncontrolled hypertension Disposition: 09 ADMITTED INPATIENT Is pt being admited?: Yes Condition: Stable Instructions: Syncope (ED), Hypertension (ED) Time of Disposition: 22:09 (Dr sarmiento/hosp)
[2022-02-22] MEDS ORDERED: HYDROmorphone 1 MG/1 ML INJ IV ONE ×2 (15:56→21:59)
[2022-02-22] MEDS ORDERED: ONDANSETRON 4 MG/2 ML INJ IV ONE (15:56)
[2022-02-22 17:35] LABS: Basophils % (Auto) 0.5 % (0.0-1.8); Eosinophils # (Auto) 0.1 K/mm3 (0.0-0.4); Eosinophils % (Auto) 1.9 % (0.0-4.3); Hematocrit 33.7 % (35.5-45.6); Hemoglobin 11.1 gm/dl (11.8-15.2); Lymphocytes # (Auto) 0.6 K/mm3 (1.2-5.4); Lymphocytes % (Auto) 9.2 % (13.4-35.0); Mean Corpuscular HGB Conc 33 % (32-34); Mean Corpuscular Volume 96 fl (84-94); Monocytes # (Auto) 0.5 K/mm3 (0.0-0.8); Platelet Count 231 K/mm3 (140-440); Red Blood Count 3.52 M/mm3 (3.65-5.03); Red Cell Distribution Width 15.1 % (13.2-15.2)
[2022-02-22 17:54] LABS: Albumin 3.9 g/dL (3.9-5); Calcium 8.9 mg/dL (8.4-10.2)
[2022-02-22 18:13] LABS: Chol/HDL Ratio 3.85 %
[2022-02-22] MEDS ORDERED: diphenhydrAMINE 50 MG/ML VIAL IV ONE (18:17)
[2022-02-22] MEDS ORDERED: METOCLOPRAMIDE 10 MG/2 ML INJ IV ONE (18:17)
[2022-02-22] MEDS ORDERED: TETRACAINE 0.5% OPHTH SOLN 4ML OD ONE (18:18)
--- NOTE | 2022-02-22 19:00 | Cat Scan Report ---
CT BRAIN: 02/22/2022 INDICATION / CLINICAL INFORMATION: syncope, right eye pain. COMPARISON: CT brain 07/21/2021 FINDINGS: BRAIN/INTRACRANIAL STRUCTURES: Unenhanced CT images of the brain demonstrate no evidence of acute abn ormality. Ventricles and sulci are within normal limits of size and shape for a patient of this age. There is no evidence of acute ischemic injury, hemorrhage, or mass. There are no abnormal extra-axial fluid collections. EXTRACRANIAL STRUCTURES: Unremarkable. IMPRESSION: No acute mallet. No change when compared to 07/21/[address] scans at this location are performed using dose reduction to ALARA by means of automated expos ure control. Signer Name: Francis Gutierrez MD Signed: 02/22/2022 6:55 PM Workstation Name: [id number]
[2022-02-22] MEDS ORDERED: traMADol 50 MG TAB PO PRN (22:12)
[2022-02-22] MEDS ORDERED: ACETAMINOPHEN 325 MG TAB PO PRN (22:12)
[2022-02-22] MEDS ORDERED: NITROGLYCERIN 0.4 MG TAB SUBL SL PRN (22:12)
[2022-02-22] MEDS ORDERED: DEXTROSE 50% IN WATER (25GM) 50 ML SYRINGE IV PRN (22:15)
[2022-02-22] MEDS ORDERED: hydrALAZINE 20 MG/1 ML INJ IV ONE (22:17)
--- NOTE | 2022-02-22 22:22 | History and Physical Report ---
History of Present Illness Date of examination: 02/22/22 Date of admission: 02/22/22 Chief complaint: Syncope Weakness History of present illness: 36-year-old male with a past medical history of HIV with CD4 greater than 200 currently antiretrovirals, diabetes which is diet-controlled, end-stage renal disease on dialysis Thursday, , and Thursday, hypertension, gastroparesis, and TIA presents to the hospital with complaints of severe right eye pain, right-sided headache, and syncopal episode. 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 Patient has been unable to complete his outpatient work-up during this time. P ossibly 2 weeks ago patient went to the ER with similar complaint and was discharged on pain medication optometry referral. Patient follow-up with malt house loader and was told that he has "bleeding behind his eye" was placed on multiple eyedrops. 2 days later his pain did not improve and therefore he represented to [facility] and was admitted to the hospital for 4 days the February 10 through . Patient was treated with pain medication and eyedrops and was discharged with improved eye pain however, it was still persistent. Patient also has had intermittent right-sided facial numbness during this 2-week period. At 9 AM patient woke up with right eye pain and headache but thought it would go away. He went to dialysis. When he returned from dialysis he had worsening right eye pain, syncopal episode, and woke up with nausea and vomiting. Pain is now severe, 10/10, aching and throbbing in nature and exacerbated by light. Patient is current medication includes Biktarvy Percocet 5/325 Zofran His eyedrop medications include: Prednisolone 1% 4 times daily Atropine 1% twice daily Timolol 0.5% twice daily Dorzolamide 2% twice daily Brimonidine tatrate 0.2% twice daily Latanoprost .005% nightly Discharge summary from [facility] from December 07 until December 13 admission reviewed Patient was diagnosed with right eye blurry vision related to uncontrolled hypertension that resolved Patient had MRI on December 08 which was negative and had a head and neck CT angiogram without acute findings. Patient apparently was also diagnosed with a left subsegmental pulmonary embolism and november and was started on Eliquis. Patient has been noncompliant with Eliquis because he cannot afford the medication and is not currently taking anticoagulant medication. as per d/c summary 02/10-02/15 Patient apparently was seen several times in the ER for right eye pain since being discharged on 12/13/2021 patient was seen by wire coiler Dr. 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 He was instructed to see a retina specialist but is awaiting his Medicare activation in February. Patient was admitted for hypertensive requiring Cardene drip during admission. Case was also discussed with Dr. Mando Buck with ophthalmology who states that the goal is comfort care and that there is no salvaging the vision because he has no light perception. It was recommended that patient see a retina specialist to see if his eye would need to be removed. It is also recommended that there was no reason to keep checking pressures at this point. He provided recommendation for pts current eye drop regimen 02/04/[address] head that was negative for acute intracranial abnormality In the emergency room initial CT scan shows no acute intracranial abnormality. We are going to admit the patient with a diagnosis of syncope. Past History Past Medical History: diabetes, HIV/AIDS, hypertension, stroke (TIA), other (Gastroparesis) Past Surgical History: Other (Dialysis port in right chest. fistula in left arm) Social history: no significant social history Family history: diabetes, hypertension Medications and Allergies Allergies Allergy/AdvReac Type Severity Reaction Status Date / Time Penicillins Allergy Hives Verified 07/24/21 10:06 tramadol AdvReac Vomiting Verified 07/24/21 10:06 Home Medications Medication Instructions Recorded Confirmed Last Taken Type Dolutegravir/Rilpivirine [Juluca 1 tab PO DAILY 11/19/20 07/24/21 07/20/21 History 50-25 mg Tablet] hydrALAZINE [Apresoline TAB] 100 mg PO TID #90 tab 01/09/21 07/24/21 07/20/21 Rx Darunavir [Prezista] 800 mg PO QDAY tablet 06/13/21 07/24/21 07/20/21 Rx Metoclopramide [Reglan TAB] 10 mg PO ACHS 30 Days #120 tablet 06/30/21 07/24/21 07/20/21 Rx Ritonavir [Norvir] 100 mg PO DAILY 07/01/21 07/24/21 07/20/21 History Ferric Citrate (Nf) [Auryxia] 210 mg PO TIDWM 07/24/21 07/24/21 9 Days Ago History ~07/15/21 Vit B Complx C/Folic Acid/Zinc 0.8 mg PO QDAY 07/24/21 07/24/21 07/18/21 History [Dialyvite 800-Zinc 15 mg Tab] labetaloL [Labetalol 200mg TAB] 200 mg PO BID #60 tablet 07/24/21 Unknown Rx HYDROcodone/APAP 5-325 [Beulah 1 each PO Q6HR PRN #12 tablet 07/26/21 Unknown Rx 5/325] Pantoprazole [Protonix] 40 mg PO QDAY #30 tablet 07/26/21 Unknown Rx Active Meds: Active Medications Acetaminophen (Acetaminophen 325 Mg Tab) 650 mg PO Q6H PRN PRN Reason: Pain, Mild (1-3) Aspirin (Aspirin Ec 325 Mg Tab) 325 mg PO QDAY [facility] Atorvastatin Calcium (Atorvastatin 40 Mg Tab) 40 mg PO QHS SHIRA Darunavir (Darunavir 800 Mg Tab) 800 mg PO QDAY [facility] Dextrose (Dextrose 50% In Water (25gm) 50 Ml Syringe) 50 ml IV Q30MIN PRN; Protocol PRN Reason: Hypoglycemia Hydralazine HCl (Hydralazine 100 Mg Tab) 100 mg PO TID [facility] Insulin Human Lispro (Insulin Lispro 100 Unit/Ml) 0 unit SUB-Q ACHS SHIRA; Protocol Labetalol HCl (Labetalol 200 Mg Tab) 200 mg PO BID [facility] Metoclopramide HCl (Metoclopramide 10 Mg Tab) 10 mg PO ACHS [facility] Miscellaneous Medication (Dolutegravir/Rilpivirine [Juluca 50-25 Mg Tablet]) 1 tab PO DAILY [facility] Miscellaneous Medication (Vit B Complx C/Folic Acid/Zinc [Dialyvite 800-Zinc 15 Mg Tab]) 0.8 mg PO QDAY SHIRA Morphine Sulfate (Morphine 4 Mg/1 Ml Inj) 2 mg IV Q5MIN PRN PRN Reason: Chest Pain unrelieved by NTG Nitroglycerin (Nitroglycerin 0.4 Mg Tab Subl) 0.4 mg SL Q5M PRN PRN Reason: Chest Pain Pantoprazole Sodium (Pantoprazole 40 Mg Tab) 40 mg PO QDAY [facility] Pantoprazole Sodium (Pantoprazole 40 Mg Tab) 40 mg PO QDAY [facility] Ritonavir (Ritonavir 100 Mg Tab) 100 mg PO DAILY [facility] Sodium Chloride (Sodium Chloride 0.9% 10 Ml Flush Syringe) 10 ml IV PRN PRN PRN Reason: LINE FLUSH Tramadol HCl (Tramadol 50 Mg Tab) 50 mg PO Q6H PRN PRN Reason: Pain, Moderate (4-6) Review of Systems All systems: negative Constitutional: other (severe right eye pain, right-sided headache, and syncopal episode.) Exam - Constitutional Vitals: Temp Pulse Resp BP Pulse Ox 98.1 F 86 18 130/94 95 02/22/22 15:10 02/22/22 15:10 02/22/22 15:10 02/22/22 15:10 02/22/22 16:49 General appearance: Present: no acute distress, well-nourished - EENT Eyes: Present: PERRL ENT: hearing intact, clear oral mucosa - Neck Neck: Present: supple, normal ROM - Respiratory Respiratory effort: normal Respiratory: bilateral: CTA - Cardiovascular Heart Sounds: Present: S1 & S2. Absent: rub, click - Extremities Extremities: pulses symmetrical, No edema Peripheral Pulses: within normal limits - Abdominal General gastrointestinal: Present: soft, non-tender, non-distended, normal bowel sounds Male genitourinary: Present: normal - Integumentary Integumentary: Present: clear, warm, dry - Musculoskeletal Musculoskeletal: gait normal, strength equal bilaterally - Psychiatric Psychiatric: appropriate mood/affect, intact judgment & insight - Neurologic Neurologic: CNII-XII intact, moves all extremities HEART Score - HEART Score Troponin: Troponin T 0.173 ng/mL (0.00-0.029) H* 02/22/22 15:42 Results - Labs CBC & Chem 7: 02/22/22 15:42 02/22/22 15:42 Labs: Laboratory Last Values WBC 6.8 K/mm3 (4.5-11.0) 02/22/22 15:42 RBC 3.52 M/mm3 (3.65-5.03) L 02/22/22 15:42 Hgb 11.1 gm/dl (11.8-15.2) L 02/22/22 15:42 Hct 33.7 % (35.5-45.6) L 02/22/22 15:42 MCV 96 fl (84-94) H 02/22/22 15:42 MCH 32 pg (28-32) 02/22/22 15:42 MCHC 33 % (32-34) 02/22/22 15:42 RDW 15.1 % (13.2-15.2) 02/22/22 15:42 Plt Count 231 K/mm3 (140-440) 02/22/22 15:42 Lymph % (Auto) 9.2 % (13.4-35.0) L 02/22/22 15:42 Leon % (Auto) 7.0 % (0.0-7.3) 02/22/22 15:42 Eos % (Auto) 1.9 % (0.0-4.3) 02/22/22 15:42 Baso % (Auto) 0.5 % (0.0-1.8) 02/22/22 15:42 Lymph # (Auto) 0.6 K/mm3 (1.2-5.4) L 02/22/22 15:42 Leon # (Auto) 0.5 K/mm3 (0.0-0.8) 02/22/22 15:42 Eos # (Auto) 0.1 K/mm3 (0.0-0.4) 02/22/22 15:42 Baso # (Auto) 0.0 K/mm3 (0.0-0.1) 02/22/22 15:42 Seg Neutrophils % 81.4 % (40.0-70.0) H 02/22/22 15:42 Seg Neutrophils # 5.5 K/mm3 (1.8-7.7) 02/22/22 15:42 Sodium 136 mmol/L (137-145) L 02/22/22 15:42 Potassium 4.2 mmol/L (3.6-5.0) 02/22/22 15:42 Chloride 97.4 mmol/L (98-107) L 02/22/22 15:42 Carbon Dioxide 29 mmol/L (22-30) 02/22/22 15:42 Anion Gap 14 mmol/L 02/22/22 15:42 BUN 18 mg/dL (9-20) 02/22/22 15:42 Creatinine 6.7 mg/dL (0.8-1.3) H 02/22/22 15:42 Estimated GFR 12 ml/min 02/22/22 15:42 BUN/Creatinine Ratio 3 % 02/22/22 15:42 Glucose 132 mg/dL (75-100) H 02/22/22 15:42 Calcium 8.9 mg/dL (8.4-10.2) 02/22/22 15:42 Total Bilirubin 0.50 mg/dL (0.1-1.2) 02/22/22 15:42 AST 15 units/L (5-40) 02/22/22 15:42 ALT 7 units/L (7-56) 02/22/22 15:42 Alkaline Phosphatase 61 units/L (35-129) 02/22/22 15:42 Troponin T 0.173 ng/mL (0.00-0.029) H* 02/22/22 15:42 Total Protein 7.3 g/dL (6.3-8.2) 02/22/22 15:42 Albumin 3.9 g/dL (3.9-5) 02/22/22 15:42 Albumin/Globulin Ratio 1.1 % 02/22/22 15:42 Triglycerides 94 mg/dL (2-149) 02/22/22 15:42 Cholesterol 131 mg/dL (50-199) 02/22/22 15:42 LDL Cholesterol Direct 82 mg/dL (50-130) 02/22/22 15:42 HDL Cholesterol 34 mg/dL (40-59) L 02/22/22 15:42 Cholesterol/HDL Ratio 3.85 % 02/22/22 15:42 - Imaging and Cardiology CT Scan - head: report reviewed Assessment and Plan VTE prophylaxis?: Mechanical Plan of care discussed with patient/family: Yes - Patient Problems (1) Syncope and collapse Current Visit: No Status: Acute Plan to address problem: Admit the patient to the medical telemetry. Aspirin 325 mg p.o. daily. Lipitor 40 mg p.o. daily. Nitroglycerin as needed. Serial cardiac enzyme echocardiogram. Consult cardiology if needed (2) Diabetes type 2, uncontrolled Current Visit: Yes Status: Acute Plan to address problem: Accu-Chek before meals and at bedtime with Humalog moderate dose coverage. Diabetic education (3) ESRD needing dialysis Current Visit: No Status: Acute Plan to address problem: Patient is status post hemodialysis today. Consult nephrology for dialysis (4) Elevated troponin Current Visit: No Status: Acute Plan to address problem: Aspirin 325 mg p.o. daily. Lipitor 40 mg p.o. daily. Nitroglycerin as needed. Serial cardiac enzyme echocardiogram. Consult cardiology if needed (5) Gastroparesis Current Visit: No Status: Acute Plan to address problem: Reglan 10 mg p.o. before meals and at bedtime (6) History of HIV infection Current Visit: No Status: Acute Plan to address problem: Will continue the home HIV medication. Outpatient follow-up with ely mancia for further evaluation and treatment (7) Blindness right eye category 3, normal vision left eye Current Visit: Yes Status: Acute Plan to address problem: Continue home eyedrop and medication. Outpatient follow-up with the retina specialist for further evaluation and treatment (8) DVT prophylaxis Current Visit: No Status: Acute Plan to address problem: Heparin 5000 units subcu every 12 hours for DVT prophylaxis. Protonix 40 mg p.o. daily for GI prophylaxis. Patient is a full code
[2022-02-23 00:20] LABS: Calcium 9.5 mg/dL (8.4-10.2)
[2022-02-23 00:21] LABS: Hemoglobin 12.4 gm/dl (11.8-15.2); Mean Corpuscular HGB Conc 33 % (32-34); Mean Corpuscular Volume 96 fl (84-94); Red Blood Count 3.95 M/mm3 (3.65-5.03)
[2022-02-23 00:27] LABS: Platelet Count 215 K/mm3 (140-440)
[2022-02-23 01:30] LABS: Anisocytosis 1+; Platelet Estimate Consistent w Auto; Total Cells Counted 100
[2022-02-23] MEDS: MORPHINE 4 MG/1 ML INJ IV PRN ×3 (01:46→10:10)
[2022-02-23] MEDS: HEPARIN 5,000 UNIT/1 ML VIAL SUB-Q SCH ×3 (06:01→13:33)
[2022-02-23] MEDS: hydrALAZINE 100 MG TAB PO SCH ×3 (06:02→13:33)
[2022-02-23] MEDS ORDERED: METOCLOPRAMIDE 10 MG TAB PO SCH (07:30)
[2022-02-23] MEDS: INSULIN LISPRO 100 UNIT/ML SUB-Q SCH ×2 (09:32→11:18)
--- NOTE | 2022-02-23 09:52 | Discharge Summary ---
Providers - Providers Date of Admission: 02/22/22 22:12 Attending physician: XOCHITL OSULLIVAN MD 02/22/22 Consult to Cardiac Rehabilitation [CONS] Routine Reason For Exam: Phase I 02/22/22 22:15 Consult to Dietitian/Nutrition [CONS] Routine Physician Instructions: Reason For Exam: Reason for Consult: Diet education 02/22/22 22:25 Consult to Physician [CONS] Routine Comment: Consulting Provider: SHARMILA GOOD Physician Instructions: Reason For Exam: esrd Primary care physician: ESSENCE HILL Hospitalization Reason for admission: headache Condition: Stable Hospital course: 36-year-old male with a past medical history of HIV with CD4 greater than 200 currently antiretrovirals, diabetes which is diet-controlled, end-stage renal disease on dialysis Thursday, , and Thursday, hypertension, gastroparesis, and TIA presents to the hospital with complaints of severe right eye pain, right-sided headache, and syncopal episode. 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 Patient has been unable to complete his outpatient work-up during this time. Possibly 2 weeks ago patient went to the ER with similar complaint and was discharged on pain medication optometry referral. Patient follow-up with manager hiv and was told that he has "bleeding behind his eye" was placed on multiple eyedrops. 2 days later his pain did not improve and therefore he represented to [facility] and was admitted to the hospital for 4 days the February 10 through . Patient was treated with pain medication and eyedrops and was discharged with improved eye pain however, it was still persistent. Patient also has had intermittent right-sided facial numbness during this 2-week period. At 9 AM patient woke up with right eye pain and headache but thought it would go away. He went to dialysis. When he returned from dialysis he had worsening right eye pain, syncopal episode, and woke up with nausea and vomiting. Pain is now severe, 10/10, aching and throbbing in nature and exacerbated by light. Patient is current medication includes Biktarvy Percocet 5/325 Zofran His eyedrop medications include: Prednisolone 1% 4 times daily Atropine 1% twice daily Timolol 0.5% twice daily Dorzolamide 2% twice daily Brimonidine tatrate 0.2% twice daily Latanoprost .005% nightly Discharge summary from [facility] from December 07 until December 13 admission reviewed Patient was diagnosed with right eye blurry vision related to uncontrolled hypertension that resolved Patient had MRI on December 08 which was negative and had a head and neck CT angiogram without acute findings. Patient apparently was also diagnosed with a left subsegmental pulmonary embolism and november and was started on Eliquis. Patient has been noncompliant with Eliquis because he cannot afford the medication and is not currently taking anticoagulant medication. as per d/c summary 02/10-02/15 Patient apparently was seen several times in the ER for right eye pain since being discharged on 12/13/2021 patient was seen by scrubbing machine operator Dr. 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 He was instructed to see a retina specialist but is awaiting his Medicare activation in February. Patient was admitted for hypertensive requiring Cardene drip during admission. Case was also discussed with Dr. Mando Buck with ophthalmology who states that the goal is comfort care and that there is no salvaging the vision because he has no light perception. It was recommended that patient see a retina specialist to see if his eye would need to be removed. It is also recommended that there was no reason to keep checking pressures at this point. He provided recommendation for pts current eye drop regimen 02/04/[address] head that was negative for acute intracranial abnormality In the emergency room initial CT scan shows no acute intracranial abnormality. We are going to admit the patient with a diagnosis of syncope. 02/23: Patient seen and examined this morning reports improvement in symptoms except dry. No further headache at this time. He is requesting for refill of his pain medication on discharge. I did have extensive discussion with him about the importance of following up with the scrubbing machine operator as recommended above. He verbalized understanding he states that he is working on it also discussed with him his hypertensive urgency that was noted here and with no additional care his blood pressure improved he states to me that he only takes his hydralazine I did provide counseling extensively on why he needs to be compliant with all his other medications as this could lead to poorly pharmacology with people who have not astigmatic with questions about his blood pressure management he verbalized understanding he is clinically stable to be discharged and to follow-up with scrubbing machine operator. Additional resources for ophthalmology also provided to the patient he verbalized understand Reports that he still has his medication but could not tell me much about the blood pressure meds so we will order dose of He will continue with his eyedrops as written above he still has those. (1) autonomic disequilibrium Current Visit: No Status: Acute Plan to address problem: Admit the patient to the medical telemetry. Aspirin 325 mg p.o. daily. Lipitor 40 mg p.o. daily. Nitroglycerin as needed. Serial cardiac enzyme echocardiogram. Consult cardiology if needed (2) Diabetes type 2, uncontrolled Current Visit: Yes Status: Acute Plan to address problem: Accu-Chek before meals and at bedtime with Humalog moderate dose coverage. Diabetic education (3) ESRD needing dialysis Current Visit: No Status: Acute Plan to address problem: Patient is status post hemodialysis today. 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 daily. Lipitor 40 mg p.o. daily. Nitroglycerin as needed. Serial cardiac enzyme echocardiogram. Consult cardiology if needed (5) Gastroparesis Current Visit: No Status: Acute Plan to address problem: Reglan 10 mg p.o. before meals and at bedtime (6) History of HIV infection Current Visit: No Status: Acute Plan to address problem: Will continue the home HIV medication. Outpatient follow-up with infectious disease for further evaluation and treatment (7) Blindness right eye category 3, normal vision left eye Current Visit: Yes Status: Acute Plan to address problem: Continue home eyedrop and medication. Outpatient follow-up with the retina specialist for further evaluation and treatment (8) hypertensive urgency (9) noncompliance secondary to insurance issues Disposition: HOME / SELF CARE / HOMELESS Final Discharge Diagnosis (Prints w/discharge instructions): Hypertensive urgency. Autonomic disequilibrium. End-stage renal disease. Loss of vision secondary to neovascular glaucoma and central retinal vein occlusion Time spent for discharge: 35 mins Core Measure Documentation - Palliative Care Palliative Care/ Comfort Measures: Not Applicable - Core Measures Any of the following diagnoses?: none Exam - Physical Exam Narrative exam: General appearance: Present: no acute distress, well-nourished - EENT Eyes: Present: PERRL ENT: hearing intact, clear oral mucosa - Neck Neck: Present: supple, normal ROM - Respiratory Respiratory effort: normal Respiratory: bilateral: CTA - Cardiovascular Heart Sounds: Present: S1 & S2. Absent: rub, click - Extremities Extremities: pulses symmetrical, No edema Peripheral Pulses: within normal limits - Abdominal General gastrointestinal: Present: soft, non-tender, non-distended, normal bowel sounds Male genitourinary: Present: normal - Integumentary Integumentary: Present: clear, warm, dry - Musculoskeletal Musculoskeletal: gait normal, strength equal bilaterally - Psychiatric Psychiatric: appropriate mood/affect, intact judgment & insight - Neurologic Neurologic: CNII-XII intact, moves all extremities - Constitutional Vitals: Temp Pulse Resp BP Pulse Ox 98.6 F 83 17 166/76 96 02/23/22 04:39 02/23/22 06:00 02/23/22 06:02 02/23/22 06:00 02/23/22 06:00 Plan Activity: advance as tolerated, fall precautions Diet: renal Special Instructions: record daily weights, record daily BP diary Care Plan Goals: Must follow-up with scrubbing machine operator as recommended Follow up with: ESSENCE HILL MD [Primary Care Provider] - 7 Days Prescriptions: AtorvaSTATin [Lipitor] 40 mg PO QHS #30 tablet hydrALAZINE [Apresoline TAB] 100 mg PO TID #90 tab labetaloL [Labetalol 200mg TAB] 200 mg PO BID #60 tablet HYDROcodone/APAP 5-325 [Union 5-325 mg TAB] 1 each PO Q6HR PRN #12 tablet PRN Reason: Pain
[2022-02-23] MEDS ORDERED: FOLIC ACID/VIT B COMP W-C 1 MG (RENAL CAPS) PO SCH (10:00)
[2022-02-23] MEDS ORDERED: EMTRICITABINE 200 MG CAP PO SCH (10:00)
[2022-02-23] MEDS ORDERED: [UNRECOGNIZED DRUG - OTHER] PO SCH (10:00)
[2022-02-23] MEDS ORDERED: ZINC PO SCH (10:00)
[2022-02-23] MEDS ORDERED: DOLUTEGRAVIR 50 MG TAB PO SCH (10:00)
[2022-02-23] MEDS ORDERED: VIT B COMPLX C PO SCH (10:00)
[2022-02-23] MEDS ORDERED: FOLIC ACID PO SCH (10:00)
[2022-02-23] MEDS ORDERED: TENOFOVIR 300 MG TAB PO SCH (10:00)
[2022-02-23] MEDS ORDERED: RITONAVIR 100 MG TAB PO SCH (10:00)
[2022-02-23] MEDS ORDERED: ASPIRIN EC 325 MG TAB PO SCH (10:00)
[2022-02-23] MEDS ORDERED: NON-FORMULARY EACH (Dolutegravir/Rilpivirine [Juluca 50-25 Mg Tablet] 1 EACH Tablet) PO SCH (10:00)
[2022-02-23] MEDS ORDERED: DARUNAVIR 800 MG TAB PO SCH (10:00)
[2022-02-23] MEDS ORDERED: PANTOPRAZOLE 40 MG TAB PO SCH ×2 (10:00)
[2022-02-23] MEDS: METOCLOPRAMIDE 10 MG TAB PO SCH ×3 (10:03→15:46)
--- NOTE | 2022-02-23 10:41 | Electrocardiograph Report ---
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
--- NOTE | 2022-02-23 10:44 | Electrocardiograph Report ---
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
--- NOTE | 2022-02-23 10:51 | Consultation ---
History of Present Illness - Reason for Consult end stage renal disease - History of Present Illness Pleasant 36 y/o M with PMHx significant for ESRD in the setting of DM, HTN, HIV, presented to the ED secondary to worsening right eye pain. He has been diagnosed with neovascular glaucoma and central retinal vein occlusion in the setting of poorly controlled HTN, and he has been followed by opthalmology at [facility]. He is pending follow up with them and will likely need further referal to retinal specialist as this time. However he is waiting for medicare to become active this week. His last HD session was yesterday which he completed without any issues other the aforementioned right eye pain, that per patient has been progressively worsening over the past two weeks. Past History Past Medical History: diabetes, HIV/AIDS, hypertension, stroke (TIA), other (Gastroparesis) Past Surgical History: Other (Dialysis port in right chest. fistula in left arm) Social history: no significant social history Family history: diabetes, hypertension Medications and Allergies Allergies Allergy/AdvReac Type Severity Reaction Status Date / Time Penicillins Allergy Hives Verified 07/24/21 10:06 tramadol AdvReac Vomiting Verified 07/24/21 10:06 Home Medications Medication Instructions Recorded Confirmed Last Taken Type Metoclopramide [Reglan TAB] 10 mg PO ACHS 30 Days #120 tablet 06/30/21 07/24/21 02/22/22 22:00 Rx Ferric Citrate (Nf) [Auryxia] 210 mg PO TIDWM 07/24/21 07/24/21 9 Days Ago History ~07/15/21 Vit B Complx C/Folic Acid/Zinc 0.8 mg PO QDAY 07/24/21 07/24/21 02/21/22 21:00 History [Dialyvite 800-Zinc 15 mg Tab] Pantoprazole [Protonix TAB] 40 mg PO QDAY #30 tablet 07/26/21 Unknown Rx AtorvaSTATin [Lipitor] 40 mg PO QHS #30 tablet 02/23/22 Unknown Rx Atropine 1% Ophth Soln [Isopto 1 drops OP BID 02/23/22 02/23/22 02/21/22 21:00 History Atropine] Bictegrav/Emtricit/Tenofov Ala 1 tab PO QDAY 02/23/22 02/23/22 02/21/22 09:00 History [Biktarvy 50-200-25 mg Tablet] Dorzolamide HCl/Pf [Dorzolamide 2% 2 drops OP BID 02/23/22 02/23/22 02/21/22 21:00 History Eye Drop] HYDROcodone/APAP 5-325 [[place] 1 each PO Q6HR PRN #12 tablet 02/23/22 Unknown Rx 5-325 mg TAB] Latanoprost 02/23/22 Unknown History Latanoprost 0.005% 1 drop OP QPM 02/23/22 02/23/22 02/21/22 21:00 History Prednisolone Acetate/Pf 1 drop OP BID 02/23/22 02/23/22 02/21/22 21:00 History [Prednisolone Acet 1% Eye Drop] Prednisolone Acetate/Pf 5 ml OP 02/23/22 Unknown History [Prednisolone Acet 1% Eye Drop] hydrALAZINE [Apresoline TAB] 100 mg PO TID #90 tab 02/23/22 Unknown Rx labetaloL [Labetalol 200mg TAB] 200 mg PO BID #60 tablet 02/23/22 Unknown Rx Active Meds: Active Medications Acetaminophen (Acetaminophen 325 Mg Tab) 650 mg PO Q6H PRN PRN Reason: Pain, Mild (1-3) Aspirin (Aspirin Ec 325 Mg Tab) 325 mg PO QDAY PENDING SALE TO [facility] Last Admin: 02/23/22 10:03 Dose: 325 mg Atorvastatin Calcium (Atorvastatin 40 Mg Tab) 40 mg PO QHS PENDING SALE TO [facility] Dextrose (Dextrose 50% In Water (25gm) 50 Ml Syringe) 50 ml IV Q30MIN PRN; Protocol PRN Reason: Hypoglycemia Dolutegravir Sodium (Dolutegravir 50 Mg Tab) 50 mg PO DAILY PENDING S[facility] Last Admin: 02/23/22 09:53 Dose: Not Given Emtricitabine (Emtricitabine 200 Mg Cap) 200 mg PO Q96H PENDING SALE TO [facility] Last Admin: 02/23/22 09:53 Dose: Not Given Heparin Sodium (Porcine) (Heparin 5,000 Unit/1 Ml Vial) 5,000 unit SUB-Q Q8HR PENDING SALE TO [facility] Last Admin: 02/23/22 06:13 Dose: Not Given Hydralazine HCl (Hydralazine 100 Mg Tab) 100 mg PO TID PENDING S[facility] Last Admin: 02/23/22 10:02 Dose: 100 mg Insulin Human Lispro (Insulin Lispro 100 Unit/Ml) 0 unit SUB-Q ACHS PENDING SALE TO [facility]; Protocol Last Admin: 02/23/22 09:32 Dose: Not Given Labetalol HCl (Labetalol 200 Mg Tab) 200 mg PO BID PEND[facility] S[facility] Last Admin: 02/23/22 10:02 Dose: 200 mg Metoclopramide HCl (Metoclopramide 10 Mg Tab) 5 mg PO [facility] PENDING SALE TO [facility] Last Admin: 02/23/22 10:03 Dose: 5 mg Morphine Sulfate (Morphine 4 Mg/1 Ml Inj) 2 mg IV Q5MIN PRN PRN Reason: Chest Pain unrelieved by NTG Last Admin: 02/23/22 10:10 Dose: 2 mg Multivit/Ca Carb/B Cmplx/FA/Prenat (Folic Acid/Vit B Comp W-C 1 Mg (Renal Caps)) 1 cap PO QDAY PENDING [facility] Last Admin: 02/23/22 10:02 Dose: 1 cap Nitroglycerin (Nitroglycerin 0.4 Mg Tab Subl) 0.4 mg SL Q5M PRN PRN Reason: Chest Pain Pantoprazole Sodium (Pantoprazole 40 Mg Tab) 40 mg PO QDAY PENDING SALE [facility] Last Admin: 02/23/22 10:03 Dose: 40 mg Sodium Chloride (Sodium Chloride 0.9% 10 Ml Flush Syringe) 10 ml IV PRN PRN PRN Reason: LINE FLUSH Tenofovir Disoproxil Fumarate (Tenofovir 300 Mg Tab) 300 mg PO [facility] Last Admin: 02/23/22 09:53 Dose: Not Given Review of Systems All systems: negative Constitutional: fatigue, weakness Eyes: right: blurred vision, decreased vision Exam - Vital Signs Vital signs: Vital Signs Temp Pulse Resp BP Pulse Ox 98.1 F 86 18 130/94 97 02/22/22 15:10 02/22/22 15:10 02/22/22 15:10 02/22/22 15:10 02/22/22 15:10 - General Appearance General appearance: well-developed, appears stated age EENT: ATNC Neck: Present: neck supple Respiratory: Clear to Ascultation, Normal Exam Heart: regular Gastrointestinal: Present: normal Integumentary: no rash, warm and dry Neurologic: no focal deficit, alert and oriented x3 Musculoskeletal: Present: deferred Psychiatric: cooperative Results - Lab Results 02/22/22 23:40 02/22/22 23:40 Most recent lab results Calcium 9.5 mg/dL (8.4-10.2) 02/22/22 23:40 Assessment and Plan - Patient Problems (1) Ocular pain, right eye Current Visit: Yes Status: Chronic Plan to address problem: likely in the setting of neovascular glaucoma and central retinal vein occlusion, requiring close follow up with opthalmology. Pain management per primary attending. (2) ESRD (end stage renal disease) Current Visit: Yes Status: Chronic Plan to address problem: Patient is stable on current [facility] outpatient HD schedule. Labs are stable this am. No needs for HD this am. From renal standpoint he is stable for DC at this time. (3) Anemia in end-stage renal disease Current Visit: No Status: Acute Plan to address problem: SAMMY therapy with HD. (4) HIV (human immunodeficiency virus infection) Current Visit: No Status: Chronic Qualifiers: HIV symptom status: unspecified Qualified Code(s): B20 - Human immunodeficiency virus [HIV] disease Plan to address problem: Continue current HAART. Follows with ID as outpatient. (5) Hypertensive chronic kidney disease with stage 5 chronic kidney disease or end stage renal disease Current Visit: No Status: Chronic Plan to address problem: Monitor blood pressures under current regimen. (6) Type 2 diabetes mellitus Current Visit: No Status: Chronic Qualifiers: Diabetes mellitus fci insulin use: unspecified roasterman insulin use status Diabetes mellitus complication status: with kidney complications Diabetes mellitus complication detail: with chronic kidney disease Chronic kidney disease stage: on chronic dialysis Qualified Code(s): E11.22 - Type 2 diabetes mellitus with diabetic chronic kidney disease; N18.6 - End stage renal disease; Z99.2 - Dependence on renal dialysis Plan to address problem: DM management per primary attending.
[2022-02-23 13:15] VITALS: BP 170/88
--- NOTE | 2022-02-24 09:48 | Electrocardiograph Report ---
[facility] Test Date: 2022-02-23 Test Time: 11:32:29 Pat Name: COLEMAN COLE III Department: Room: A366 1 Gender: M Manager Monitoring: TEREZA : 1985 Requested By: VISH ABARCA Order Number: [id number] Reading MD: Power Dia Measurements Intervals Chambers Rate: 92 P: 52 WI: 130 QRS: 18 QRSD: 87 T: 130 QT: 354 QTc: 438 Interpretive Statements Sinus rhythm Nonspecific T abnormalities, lateral leads Compared to ECG 02/23/2022 07:37:43 Possible ischemia no longer present T-wave abnormality still present Electronically Signed On 02-24-2022 9:47:39 EDT by Power Dia
== END 2022-02-23 17:17 | disposition home or self-care (01) ==
LOC: ED 14:27 → 3A 22:12 → INTOOBSV 22:12 → 3A 02-23 00:30
PROVIDERS: ADMIT Hospitalist; ATTEND Internal Medicine
DX: R55 Syncope and collapse (principal); H54.413A Blindness right eye category 3, normal vision left eye; I16.0 Hypertensive urgency; I12.0 Hypertensive chronic kidney disease with stage 5 chronic kidney disease or end stage renal disease; N18.6 End stage renal disease; E11.22 Type 2 diabetes mellitus with diabetic chronic kidney disease; D63.1 Anemia in chronic kidney disease; K31.84 Gastroparesis; E87.8 Other disorders of electrolyte and fluid balance, not elsewhere classified; G43.909 Migraine, unspecified, not intractable, without status migrainosus; R77.8 Other specified abnormalities of plasma proteins; Z21 Asymptomatic human immunodeficiency virus [HIV] infection status; Z86.73 Personal history of transient ischemic attack (TIA), and cerebral infarction without residual deficits; Z79.899 Other long term (current) drug therapy; Z98.890 Other specified postprocedural states; Z79.82 Long term (current) use of aspirin; Z79.4 Long term (current) use of insulin; Z79.84 Long term (current) use of oral hypoglycemic drugs
CPT/HCPCS: 36415; 70450; 80053; 80061; 82962; 84484; 85025; 93005; 96372; 96374; 96375; 96376; 99291; G0378; J0360; J1170; J1200; J1644; J2270; J2405; J2765; 80048; 85007